=== PATIENT | female | born 1935 | race Caucasian/White ===

== ENCOUNTER 2019-04-08 12:09 | Emergency (ER) | payer OTHER, SELFPAY ==
[2019-04-08 12:19] VITALS: BP 116/58; PULSE 74; RESP 20; TEMP 36.9; O2SAT 98
--- NOTE | 2019-04-08 12:24 | ED.FEMALEGU ---
HPI - Female Genitourinary General Chief complaint: Urogenital-Female Stated complaint: bladder infection Time Seen by Provider: 04/08/19 12:25 Source: patient and family History of Present Illness HPI Narrative: PATIENT PRESENTS WITH URINARY URGENCY AND BURINING. NO BACK OR ABDOMINAL PAIN patient denies any flank pain denies any gross hematuria. Patient states her symptoms started 2 days ago. MD elicited complaint: dysuria and UTI Related Data Home Medications Medication Instructions Recorded Confirmed carvedilol 6.25 mg PO BID 04/08/19 04/08/19 fluticasone propionate [Flonase INTRANASAL 04/08/19 Allergy Relief] insulin aspart U-100 [Novolog 3 unit SUBCUT TID 04/08/19 04/08/19 Flexpen U-100 Insulin] insulin glargine U-300 conc SUBCUT 04/08/19 [Toujeo SoloStar U-300 Insulin] lisinopril 5 mg PO DAILY 04/08/19 04/08/19 rosuvastatin 40 mg PO DAILY 04/08/19 04/08/19 tramadol 50 mg PO HS 04/08/19 04/08/19 Allergies Allergy/AdvReac Type Severity Reaction Status Date / Time codeine Allergy Unknown Unknown Verified 06/03/18 15:29 Penicillins Allergy Unknown Unknown Verified 06/03/18 15:29 Review of Systems Review of Systems: Narrative: CONSTITUTIONAL: Denies fever, chills, or sweats. EYES: Denies visual changes, redness, or discharge. ENT: Denies rhinorrhea, congestion, sore throat, or otalgia. CARDIOVASCULAR: Denies chest pain, palpitations, or edema. RESPIRATORY: Denies cough or dyspnea. GASTROINTESTINAL: Denies abdominal pain, nausea, vomiting, or diarrhea. GENITOURINARY: Denies hematuria. SKIN: Denies rash or itching. MUSCULOSKELETAL: Denies back pain, joint pain, or myalgia. NEUROLOGIC: Denies headache, numbness, or weakness. PSYCHIATRIC: Denies anxiety or depression. [facility] Family History Family History Sibling Family history of arthritis Family history of lung cancer Social History Social History Smoking status: Never smoker Alcohol intake: never Comments At time of signature, agree with nursing past medical, surgical, social and family history. There is no relevant family history pertinent to the presenting complaint Exam Narrative: Exam Narrative: GENERAL: Well-appearing, well-nourished, and in no acute distress. HEAD: Normocephalic, atraumatic. EYES: PERRLA and EOMI. ENT: Nares clear, no rhinorrhea or epistaxis. Mucous membranes moist. NECK: Supple. CHEST: Clear to auscultation. No respiratory distress. HEART: Regular rate and rhythm. No murmur heard. Normal peripheral pulses. ABDOMEN: Soft, nontender, nondistended, normal active bowel sounds. EXTREMITIES: Normal range of motion. No edema. SKIN: Warm, dry, no rash. NEURO: No focal deficits. Alert and oriented x3. [place] Coma Scale Eye Opening: Spontaneous 4 [place] Coma Scale Motor: Obeys Commands 6 Li Coma Scale Verbal: Oriented 5 Li Coma Scale Total 15 Course Vital Signs Vital signs: Vital Signs Temperature 36.9 C 04/08/19 12:19 Pulse Rate 74 04/08/19 12:19 Respiratory Rate 20 04/08/19 12:19 Blood Pressure 116/58 L 04/08/19 12:19 Pulse Oximetry 98 04/08/19 12:19 Temperature 36.9 C 04/08/19 12:19 Pulse Rate 74 04/08/19 12:19 Respiratory Rate 20 04/08/19 12:19 Blood Pressure 116/58 L 04/08/19 12:19 Pulse Oximetry 98 04/08/19 12:19 Critical dx considered and discussed with pt. Educated patient on red flag s/s and to go to ED if s/s occur. Discussed with pt when to return to [facility] or primary care provider. Pt gave verbal undertstanding, all questions were answered, and pt was agreeable to plan MDM - Female Genitourinary Lab Data Labs: Urine Glucose Negative Reference Range: Negative Urine Bilirubin Negative Reference Range: Negative Urine Ketone Negative Reference Range: Negative Urine Spe
== END 2019-04-08 13:10 | disposition home or self-care (01) ==
PROVIDERS: Emergency Provider Nurse Practitioner Family; PCP Family Medicine
DX: N39.0 Urinary tract infection, site not specified (principal); E78.00 Pure hypercholesterolemia, unspecified; I25.2 Old myocardial infarction; E11.9 Type 2 diabetes mellitus without complications; Z79.4 Long term (current) use of insulin
CPT/HCPCS: 81003; 87077; 87086; 87088; 87186; 99213; G0463

== ENCOUNTER 2019-04-23 12:49 | Emergency (ER) | payer OTHER, SELFPAY ==
--- NOTE | ~2019-04-23 | XR_ITS ---
EXAMINATION: XR chest 2V 04/23/2019 13:29 INDICATION: Cough for 3 days. PROCEDURE: 2 view chest COMPARISON: 01/01/2017 FINDINGS: The lungs are clear. The cardiomediastinal silhouette is within normal limits. There are no pleural effusions. There is no pneumothorax suspected. IMPRESSION: 1: NO ACUTE CARDIOPULMONARY DISEASE. Reviewed, dictated and finalized at location A. LY CHAIN DIRECTOR
[2019-04-23 12:57] VITALS: BP 153/68; PULSE 88; RESP 16; TEMP 37.8; O2SAT 97
--- NOTE | 2019-04-23 13:13 | ED.URI ---
HPI - URI/Sore Throat General Chief Complaint: Upper Respiratory Infection Stated Complaint: cough and congestion Time Seen by Provider: 04/23/19 13:07 Source: patient and RN notes reviewed Mode of arrival: ambulatory Limitations: no limitations History of Present Illness HPI Narrative: 84-year-old female with history of diabetes presents with concern for cough, fever, chills, body aches, nasal congestion, postnasal drainage, sore throat that started approximately 3 days ago. She denies any history of smoking, emphysema, COPD, asthma. Reports she was once hospitalized for bronchitis. She is not take any medications for the symptom MD elicited complaint: cough Related Data Home Medications Medication Instructions Recorded Confirmed carvedilol 6.25 mg PO BID 04/08/19 04/08/19 fluticasone propionate [Flonase INTRANASAL 04/08/19 Allergy Relief] insulin aspart U-100 [Novolog 3 unit SUBCUT TID 04/08/19 04/08/19 Flexpen U-100 Insulin] insulin glargine U-300 conc SUBCUT 04/08/19 [Toujeo SoloStar U-300 Insulin] lisinopril 5 mg PO DAILY 04/08/19 04/08/19 rosuvastatin 40 mg PO DAILY 04/08/19 04/08/19 tramadol 50 mg PO HS 04/08/19 04/08/19 Allergies Allergy/AdvReac Type Severity Reaction Status Date / Time codeine Allergy Unknown Unknown Verified 04/23/19 13:32 Penicillins Allergy Unknown Unknown Verified 04/23/19 13:32 Review of Systems Review of Systems: Narrative: CONSTITUTIONAL: Reports malaise, chills, sweats, fever. EYES: Denies visual changes, redness, or discharge. ENT: Reports rhinorrhea, congestion, otalgia and sore throat. CARDIOVASCULAR: Denies chest pain, palpitations, or edema. RESPIRATORY: Reports cough, chest congestion. Denies dyspnea. GASTROINTESTINAL: Denies abdominal pain, nausea, vomiting, diarrhea SKIN: Denies rash or itching. MUSCULOSKELETAL: Reports myalgia. NEUROLOGIC: Denies headache. All systems reviewed & are unremarkable except as noted in HPI and below PMFSH Social History Social History Smoking status: Never smoker Alcohol intake: never Gender identity (if verbalized by the patient): Female Comments At time of signature, agree with nursing past medical, surgical, social and family history. There is no relevant family history pertinent to the presenting complaint Exam Narrative: Exam Narrative: GENERAL: Well-appearing, well-nourished, and in no acute distress. HEAD: Normocephalic EYES: PERRLA, conjunctivae clear ENT: Nares clear, turbinates edematous and erythematous, clear discharge. Mucous membranes moist. TM pearly mitchell with dull light reflex bilaterally; no tragal tenderness. Oropharynx erythematous without lesions. Tonsils not enlarged and without exudate, no drooling, no hoarseness, no trismus. NECK: Supple. No lymphadenopathy CHEST: Left lung clear to auscultation, right lower lobe greatly diminished with poor aeration and rhonchi. No wheezing, rales, or stridor. No respiratory distress, speaks in full sentences. HEART: Regular rate and rhythm. No murmur heard. Normal peripheral pulses. SKIN: Warm, dry, no rash. NEURO: Alert and oriented x3. PSYCH: Normal mood and affect Course Course Emergency Course: Discussed with patient negative influenza results, chest x-ray results. Discussed with patient my suspicion of influenza-like illness in addition to pneumonia due to her very diminished right lower lobe. Discussed treatment of potential influenza as well as pneumonia. Discussed following up with her primary care provider on Thursday or Thursday. Patient understands reasons to go to the emergency room between now and then. Patient is aware of diagnosis, understands and agrees to treatment plan. Anticipatory guidance given. Patient agrees to follow-up as directed and is aware of reasons to seek care at the emergency department. Portions of this record may have been created with voice recognition software Vital Signs Vital sign
== END 2019-04-23 14:20 | disposition home or self-care (01) ==
PROVIDERS: Emergency Provider Nurse Practitioner; PCP Family Medicine
DX: R05 Cough (principal); R50.9 Fever, unspecified; R52 Pain, unspecified; R09.81 Nasal congestion; J02.9 Acute pharyngitis, unspecified; R09.89 Other specified symptoms and signs involving the circulatory and respiratory systems; E11.9 Type 2 diabetes mellitus without complications; E78.00 Pure hypercholesterolemia, unspecified; I25.2 Old myocardial infarction; I25.10 Atherosclerotic heart disease of native coronary artery without angina pectoris; Z95.5 Presence of coronary angioplasty implant and graft; Z79.4 Long term (current) use of insulin
CPT/HCPCS: 71046; 87804; 99213; G0463

== ENCOUNTER 2020-01-05 13:25 | Emergency (ER) | payer OTHER, SELFPAY ==
--- NOTE | ~2020-01-05 | XR_ITS ---
EXAMINATION: XR chest 2V DATE: 01/05/2020 13:53 INDICATION: Cough TECHNIQUE: PA and lateral views of the chest are obtained. COMPARISON: 04/23/2019 FINDINGS: The lungs are free of acute opacities. There is no pleural effusion or pneumothorax. The ca rdiomediastinal silhouette is normal. There is mild thoracolumbar levocurvature. There is moderate th oracic spondylosis. IMPRESSION: 1. No acute cardiopulmonary abnormality. Reviewed, dictated and finalized at location A. C BREAKER
[2020-01-05 13:30] VITALS: BP 134/62; PULSE 72; RESP 16; TEMP 37; O2SAT 98
--- NOTE | 2020-01-05 14:02 | ED.GENADULT ---
HPI - General Adult General Chief complaint: Upper Respiratory Infection Stated complaint: sinus drainage/cough/shortness of breath Time Seen by Provider: 01/05/20 14:02 Source: patient and RN notes reviewed Mode of arrival: ambulatory (with cane) Limitations: no limitations History of Present Illness HPI narrative: 84-year-old female presents with complains of intermittent upper respiratory infection, PND, cough, and wheezing for the past 6 months. Faith says coughing episodes increased throughout the last 24 hours. Allergy medication, Albuterol inhaler and nebulizer, and Mucinex without relief. She has been evaluated multiple times by her PMD (steroids, antibiotics, and albuterol with little to no relief) and is currently awaiting ENT evaluation in 2 weeks. Intermittent dry cough (worse at night) without chest congestion. No rhinorrhea. Nasal congestion. Denies sore throat. No high fevers, drooling, neck or throat swelling. No chest pain or shortness of breath. No exacerbation factors. Remains active. The patient reports she have not been diagnosed with COVID-19. The patient reports she is not waiting for the results of a COVID-19 lab test. The patient reports she do not have chills, weakness, or fatigue. The patient reports she do not have a worsening cough or shortness of breath. The patient reports she do not have any loss of taste, nausea, vomiting, abdominal pain, and diarrhea. Tolerating po intake well. Denies recent traveling. Denies concerns for COVID-19 or exposures been home with limited outdoor exposure except for essential household needs and return home. At this time, patient is not suspected of having COVID-19. Some parts of this dictation were generated by voice recognition software and may contain typographical and/or grammatical inaccuracies. Related Data Home Medications Medication Instructions Recorded Confirmed carvedilol 6.25 mg PO BID 04/08/19 01/05/20 insulin aspart U-100 [Novolog 3 unit SUBCUT TID 04/08/19 01/05/20 Flexpen U-100 Insulin] insulin glargine U-300 conc 20 unit SUBCUT DAILY 04/08/19 01/05/20 [Toujeo SoloStar U-300 Insulin] lisinopril 5 mg PO DAILY 04/08/19 01/05/20 rosuvastatin 40 mg PO DAILY 04/08/19 01/05/20 tramadol 50 mg PO HS 04/08/19 01/05/20 Allergies Allergy/AdvReac Type Severity Reaction Status Date / Time codeine Allergy Unknown Chest Pain Verified 01/05/20 13:40 Penicillins Allergy Unknown Rash Verified 01/05/20 13:40 Review of Systems Review of Systems: Narrative: CONSTITUTIONAL: Denies fever, chills, sweats. EYES: Denies visual changes, redness, discharge. ENT: Denies rhinorrhea, sore throat, otalgia. Complains of congestion, PND. CARDIOVASCULAR: Denies chest pain, palpitations, edema. RESPIRATORY: Denies dyspnea. Complains of intermittent wheezing, dry cough. GASTROINTESTINAL: Denies abdominal pain, nausea, vomiting, diarrhea. GENITOURINARY: Denies dysuria, hematuria, abnormal discharge. SKIN: Denies rash or itching. MUSCULOSKELETAL: Denies acute back pain, joint pain, or myalgia. NEUROLOGIC: Denies numbness or focal weakness. PSYCHIATRIC: Denies anxiety or depression. All systems reviewed & are unremarkable except as noted in HPI and below PMFSH Past Medical History Medical History (Updated 01/06/20 @ 00:00 by [facility]) Breast cancer Diabetes Hypercholesteremia Myocardial infarct 2019 Surgical History Surgical History (Updated 01/05/20 @ 14:19 by GUME Hilton) History of cardiac catheterization History of lumpectomy of right breast Family History Family History (Updated 01/05/20 @ 14:21 by GUME Hilton) Sibling Family history of arthritis Family history of lung cancer Father , Motor vehicle accident No problems noted. Mother , at the age of 96 Hypercholesteremia Social History Social History (Updated 01/05/20 @ 14:21 by GUME Hilton) Smoking stat
== END 2020-01-05 14:19 | disposition home or self-care (01) ==
PROVIDERS: Emergency Provider Nurse Practitioner Family; PCP Family Medicine
DX: J06.9 Acute upper respiratory infection, unspecified (principal); E11.9 Type 2 diabetes mellitus without complications; E78.00 Pure hypercholesterolemia, unspecified; I25.2 Old myocardial infarction; Z85.3 Personal history of malignant neoplasm of breast
CPT/HCPCS: 71046; 99213; G0463

== ENCOUNTER 2020-09-06 11:31 | Emergency (ER) | payer OTHER, SELFPAY ==
--- NOTE | ~2020-09-06 | XR_ITS ---
EXAMINATION: XR ribs BI 3V w CXR 2V EXAM DATE: 09/06/2020 12:37 INDICATION: Cough/Sob X 2 Wks. Fell Forward 09/02/20. Anterior chest pain. TECHNIQUE: Frontal projection of the upper left ribs, frontal projection of the lower left ribs, obli que projection of the left ribs. Frontal projection of the upper right ribs, frontal projection of t he lower right ribs, oblique projection of the right ribs, frontal and lateral chest x-ray(s) for int erpretation. Comparison is made to prior examination from 01/05/2020. FINDINGS: No confluent consolidation, pneumothorax or pleural effusion suspected. Cardiomediastinal s ilhouette and is normal. Mild to moderate thoracic dextroscoliosis, mild to moderate lumbar levoscoli osis. Right axillary surgical clips. Bones are osteopenic. No acute displaced rib fractures identified. Consider educating patient that ev en if there is a radiographically occult nondisplaced rib fracture, there is no specific treatment ot her than to refrain from activity that prevents healing. There is an old left humeral fracture. IMPRESSION: No acute displaced rib fracture identified. Reviewed, dictated and finalized at location B.
[2020-09-06 11:36] VITALS: BP 130/82; PULSE 69; RESP 20; TEMP 36.4; O2SAT 95
--- NOTE | 2020-09-06 11:52 | ED.URI ---
HPI - URI/Sore Throat General Chief Complaint: Upper Respiratory Infection Stated Complaint: cough wheezing and hard to breathe Time Seen by Provider: 09/06/20 11:52 Source: patient and RN notes reviewed Mode of arrival: ambulatory Limitations: no limitations History of Present Illness HPI Narrative: 85-year-old female with history of COPD presents concern for 2-week history of cough, wheezing, shortness of breath. Reports she has been using her albuterol nebulizer several times daily. Reports on September 02 she also lost her balance and fell onto her chest, she reports bruising on bilateral anterior upper chest area bilateral upper arms. Reports she has been taking Mucinex and Claritin. She denies fever, body aches, chills, sweats. Reports she last used her albuterol inhaler approximately 2 hours ago MD elicited complaint: cough Related Data Home Medications Medication Instructions Recorded Confirmed carvedilol 6.25 mg PO BID 04/08/19 09/06/20 insulin aspart U-100 [Novolog 3 unit SUBCUT TID 04/08/19 09/06/20 Flexpen U-100 Insulin] insulin glargine U-300 conc 20 unit SUBCUT DAILY 04/08/19 09/06/20 [Toujeo SoloStar U-300 Insulin] rosuvastatin 40 mg PO DAILY 04/08/19 09/06/20 tramadol 50 mg PO HS 04/08/19 09/06/20 aspirin 81 mg tablet,delayed 81 mg PO DAILY 09/04/20 09/06/20 release duloxetine 30 mg capsule,delayed 30 mg PO DAILY 09/04/20 09/06/20 release lisinopril 2.5 mg tablet 2.5 mg PO DAILY 09/04/20 09/06/20 Allergies Allergy/AdvReac Type Severity Reaction Status Date / Time codeine Allergy Unknown Chest Pain Verified 09/06/20 12:21 Penicillins Allergy Unknown Rash Verified 09/06/20 12:21 Review of Systems Review of Systems: Narrative: CONSTITUTIONAL: Denies malaise, chills, sweats, or fever. EYES: Denies visual changes, redness, or discharge. ENT: Reports rhinorrhea, congestion. Denies sinus pain, otalgia and sore throat. CARDIOVASCULAR: Denies chest pain, palpitations, or edema. RESPIRATORY: Reports cough, wheezing, dyspnea. GASTROINTESTINAL: Denies abdominal pain, nausea, vomiting, diarrhea SKIN: Denies rash or itching. MUSCULOSKELETAL: Denies myalgia. Reports anterior chest pain, bruising, upper arm bruising after fall NEUROLOGIC: Denies headache. All systems reviewed & are unremarkable except as noted in HPI and below PMFSH Past Medical History Medical History Breast cancer Diabetes Hypercholesteremia Myocardial infarct 2019 Surgical History Surgical History (Updated 01/05/20 @ 14:19 by GUME Hilton) History of cardiac catheterization History of lumpectomy of right breast Family History Family History Sibling Family history of arthritis Family history of lung cancer Diabetes mellitus Heart disease Father , Motor vehicle accident Alcoholism Mother , at the age of 96 Hypercholesteremia Social History Social History Smoking status: Never smoker Tobacco type: cigarettes Second hand tobacco smoke exposure: No Alcohol intake: current Substance use: never Additional living arrangements comments: grandson lives in second-floor part of home Gender identity (if verbalized by the patient): Female Comments At time of signature, agree with nursing past medical, surgical, social and family history. There is no relevant family history pertinent to the presenting complaint Exam Narrative: Exam Narrative: GENERAL: Well-appearing, well-nourished, and in no acute distress. HEAD: Normocephalic EYES: PERRLA, conjunctivae clear ENT: Nares clear, turbinates erythematous, clear discharge. Mucous membranes moist. TM pearly mitchell with dull light reflex bilaterally; no tragal tenderness. Oropharynx not erythematous without lesions. Tonsils not enlarged and without exudate, no dr
== END 2020-09-06 12:55 | disposition home or self-care (01) ==
PROVIDERS: Emergency Provider Nurse Practitioner; PCP Family Medicine
DX: J44.1 Chronic obstructive pulmonary disease with (acute) exacerbation (principal); E11.9 Type 2 diabetes mellitus without complications; E78.5 Hyperlipidemia, unspecified; I25.2 Old myocardial infarction; Z85.3 Personal history of malignant neoplasm of breast; Z79.82 Long term (current) use of aspirin; Z79.4 Long term (current) use of insulin
CPT/HCPCS: 71046; 71110; 99213; G0463

== ENCOUNTER 2024-07-25 14:21 | Emergency (ER) | payer MEDICARE, SELFPAY ==
[2024-07-25] VITALS (8 sets, daily range): BP systolic 175–185; BP diastolic 79–99; PULSE 78–80; RESP 15–20; TEMP 36.9; O2SAT 95–99
--- NOTE | ~2024-07-25 | XR_ITS ---
XR chest 1V portable Ordering provider: Shereen Lucero PA-C History: 89 years Female with . BLE, evaluate for pulmonary edema . Comparison: September 06, 2020 FINDINGS: MEDIASTINUM: The cardiac silhouette is not enlarged. LUNGS: No effusions or pneumothorax. Prominent bronchovascular markings bilaterally with interstitial and alveolar opacification focal opacification the left lung base medially is noted. OTHER: No free air under the diaphragm. Healing fracture in the left proximal humerus is noted. Degenerative changes of the spine. IMPRESSION: Highly suggestive bilateral pneumonitis versus pulmonary edema. Clinical correlation and follow-up ad vised. Reviewed, dictated and finalized at location A. IMPRESSION: Highly suggestive bilateral pneumonitis versus pulmonary edema. Clinical correl ation and follow-up advised.
--- OUTSIDE RECORDS SUMMARY | 2024-07-25 14:25 | XMS_ITS | Referral Summary ---
Author Organization [facility] Address [address] [place] [address] Care Team Providers Care Chief Jailer Name Role Phone Naun Georges MD Unavailable [phone] Di Demarco MD Unavailable [phone] Thomas Ordoñez MD Unavailable Joseph Mccullough MD Unavailable [phone] Faith Hamm NP Primary Care Provider [phone] Encounters Date Type Department Care Team Description 07/20/2024 9:00 AM CDT Orders Only [facility] [address] [place] [id number] 07/13/2024 8:00 AM CDT Orders Only [facility] [address] [place] [address] Cellulitis of right lower extremity; Venous stasis ulcer of right calf limited to breakdown of skin without varicose veins (HCC); Type 2 diabetes mellitus with stage 3a chronic kidney disease, with long-term current use of insulin (HCC) 07/12/2024 3:19 PM CDT - 07/12/2024 11:59 PM CDT Hospital Encounter [facility] [address] [facility] [address], [address] [place] [address] Thomas Washington MD Degeneration of intervertebral disc of lumbar region, unspecified whether pain present; Diabetic peripheral neuropathy (HCC) Discharge Disposition: Discharge to home or self care 07/06/2024 10:30 AM CDT Office Visit [facility] at [address] [place] [id number] Faith Hamm NP Cellulitis of right lower extremity (Primary Dx); Dependent edema; Venous stasis ulcer of right calf limited to breakdown of skin without varicose veins (HCC); Type 2 diabetes mellitus with stage 3a chronic kidney disease, with long-term current use of insulin ([facility]) 07/04/2024 Nurse Triage [facility] at [address] [address] Faith Hamm NP 07/04/2024 10:15 AM CDT Office Visit [facility] [place] [address] [place] [address] Ronel Leung NP Leg swelling (Primary Dx); Dependent edema; Cellulitis of right lower extremity 06/20/2024 Telephone [facility] [address] [place] [address] A, [facility]. [address] [place] [address] Shameka Ray NP from Last 3 Months Allergies Active Allergy Reactions Criticality Noted Date Comments Codeine Chest tightness Medium Has tolerated percocet Penicillins Rash Medium Medications calcium carbonate-vitam in D3 (CALCIUM 500 + D, D3,) 500 mg(1,250mg) -125 unit per tablet 0 0 05/22/19 17 Active blood-glucose meter (CONTOUR NEXT METER) misc Contour next meter test blood sugars two times every day DX:E11.65 insulin dependent 1 each 04/29/19 19 Active insulin syringe-needle U-100 0.5 mL 31 gauge x 16 syringeIndicati ons:Type 2 diabetes mellitus with hyperglycemia, with long-term current use of insulin (HCC) One each 3 x daily for insulin administration 120 each 11 07/06/19 19 Active Advocate Lancing Device misc TEST 2 TIMES A DAY 11/01/19 20 Active Comfort EZ Insulin Syringe 1 mL 31 gauge x 5/16 syringe USE TO INJECT 4 TIMES A DAY 11/01/19 20 Active Easy Touch Lancets 28 gauge misc TEST 2 TIMES A DAY 11/01/19 20 Active brimonidine (ALPHAGAN) 0.2 % ophthalmic solution Administer 1 drop into the left eye 2 (two) times a day 04/01/19 22 Active cetirizine (ZyrTEC) 10 mg tabletIndicatio ns:Acute sinusitis, recurrence not specified, unspecified location Take 1 tablet (10 mg total) by mouth daily 90 tablet 12/31/19 23 Active Contour Next Test Strips stripIndication s:Type 2 diabetes mellitus with hyperglycemia, with long-term current use of insulin ([facility]) TEST BLOOD SUGAR FOUR TIMES DAILY 300 strip 4 01/08/20 23 Active lidocaine (LIDODERM) 5 % Place 2 patches on the skin daily Remove & discard patch within 12 hours or as directed by MD. 02/18/20 23 Active polyvinyl alcohol-povidon e (REFRESH CLASSIC) 1.4-0.6 % dropperetteIndi cations:Dry Eye Administer 1 drop into the right eye 3 (three) times a day as needed for dry eyes 02/18/20 23 Active dorzolamide-lien oloL (COSOPT) 22.3-6.8 mg/mL ophthalmic solution Administer 1 drop into the left eye 2 (two) times a day Active pen needle, diabetic (Pen Needle) 31 gauge x 5/16 needleIndicatio ns:Type 2 diabetes mellitus with hyperglycemia, with long-term current use of insulin ([facility]) Use to inject 4 times daily as directed. 400 each 1 05/22/19 24 Active magnesium hydroxide (MILK OF MAGNESIA) suspension 400 mg/5 mL as needed (Constipation) Active pantoprazole DR (PROTONIX) 40 mg EC tabletIndicatio ns:GI Bleed Take 1 tablet (40 mg total) by mouth daily 90 tablet 3 09/17/19 24 Active fluticasone propionate (FLONASE) 50 mcg/actuation nasal sprayIndication s:Non-seasonal allergic rhinitis, unspecified trigger Administer 2 sprays into each nostril daily 3 each 3 10/16/19 24 025 Active insulin aspart (NovoLOG) 100 unit/mL (3 mL) pen for injectionIndica tions:Type 2 diabetes mellitus with hyperglycemia, with long-term current use of insulin (HCC) INJECT 8-14 UNITS UNDER SKIN 3 TIMES A DAY WITH MEALS. 15 mL 2 11/03/19 24 Active insulin glargine (TOUJEO) 300 unit/mL (1.5 mL) pen for injectionIndica tions:type 2 diabetes mellitus Inject 30 Units under the skin daily 15 mL 3 11/10/19 24 Active semaglutide 0.25 mg or 0.5 mg (2 mg/3 mL) pen injector injectionIndica tions:type 2 diabetes mellitus Inject 0.25 mg under the skin once a week 9 mL 3 11/10/19 24 025 Active carvediloL (COREG) 6.25 mg tabletIndicatio ns:Hypertension associated with diabetes (HCC) TAKE 1 TABLET BY MOUTH TWICE A DAY WITH MEALS 180 tablet 1 12/17/19 24 Active lisinopriL (PRINIVIL,ZESTR [place]) 2.5 mg tabletIndicatio ns:Hypertension associated with stage 3a chronic kidney disease due to type 2 diabetes mellitus (HCC),Type 2 diabetes mellitus with stage 3a chronic kidney disease, with long-term current use of insulin ([facility]) Take 1 tablet (2.5 mg total) by mouth daily 90 tablet 3 01/15/20 24 025 Active rosuvastatin (CRESTOR) 40 mg tablet TAKE 1 TABLET BY MOUTH EVERY DAY AT NIGHT 100 tablet 1 03/25/19 25 Active clotrimazole-be tamethasone (LOTRISONE) cream PLEASE SEE ATTACHED FOR DETAILED DIRECTIONS 06/25/19 25 Active furosemide (LASIX) 20 mg tablet Take 1 tablet (20 mg total) by mouth daily as needed (swelling in feet) 30 tablet 1 07/07/19 25 025 Active oxyCODONE (ROXICODONE) 5 mg immediate release tabletIndicatio ns:Pain Take 1 tablet (5 mg total) by mouth nightly as needed for pain 30 tablet 07/13/19 25 025 Active oxyCODONE (ROXICODONE) 5 mg immediate release tabletIndicatio ns:Pain Take 1 tablet (5 mg total) by mouth nightly as needed for pain 30 tablet 08/12/19 25 025 Active oxyCODONE (ROXICODONE) 5 mg immediate release tabletIndicatio ns:Pain Take 1 tablet (5 mg total) by mouth nightly as needed for pain 30 tablet 09/11/19 25 025 Active oxyCODONE (ROXICODONE) 5 mg immediate release tabletIndicatio ns:Pain Take 1 tablet (5 mg total) by mouth nightly as needed for pain for up to 18 days 18 tablet 06/25/19 25 025 Discontinu ed(Reorder ) doxycycline (VIBRAMYCIN) 100 mg capsuleIndicati ons:Cellulitis of right lower extremity Take 1 tablet/capsule (100 mg total) by mouth 2 (two) times a day for 7 days 14 tablet/caps ule 07/05/19 025 Active Problems Problem Noted Date Diagnosed Date Venous stasis ulcer of right calf limited to breakdown of skin without varicose veins 07/06/2024 Assessment & Plan (07/06/2024 7:00 PM CDT): Orders: Ambulatory referral to Wound Clinic; Future Cellulitis of right lower extremity 07/06/2024 Assessment & Plan (07/06/2024 7:00 PM CDT): Orders: Ambulatory referral to Wound Clinic; Future Encounter for Medicare annual wellness exam 01/01 Assessment & Plan (01/20/2024 8:47 PM PRECIPITATION EQUIPMENT TENDER): Annual Medicare wellness exam completed today. All questionnaires completed and reviewed with patient. No Concerns. Unspecified elimination disorder, with urinary s ymptoms 01/20/2024 Immunization due 01/20/2024 Encounter for medical examination to establish c are 10/17/2023 Assessment & Plan (10/17/2023 7:59 PM CDT): Discussed routine health care and maintenance. Get annual flu shot this fall. Labs ordered. Follow-up as scheduled Peptic ulcer disease 09/17/2023 Hiatal hernia 09/17/2023 Anemia due to GI blood loss 09/17/2023 At risk for falling 04/09/2023 Assessment & Plan (04/09/2023 4:00 PM PRECIPITATION EQUIPMENT TENDER): Due to patient's current condition of odontoid fracture, and the fact that she has in a neck brace, she has increased risk for balance issues and falling. Patient would benefit from home physical therapy/occupational therapy. Both of these services were ordered during patient's hospital discharge planning. Dependent edema 04/07/2023 Assessment & Plan (07/06/2024 7:00 PM CDT): Assessment & Plan (04/08/2023 10:01 AM PRECIPITATION EQUIPMENT TENDER): Trial of low-dose furosemide. Encouraged use of compression stocking, elevated legs above heart when possible. Follow advise of PT/OT. H/O gastrointestinal hemorrhage 03/13/2023 Right adrenal mass 02/10/2023 Assessment & Plan (02/12/2023 1:47 PM PRECIPITATION EQUIPMENT TENDER): #Indeterminate hypoattenuating lesion within the left inferior renal pole which is increased in size compared to 2018. This may be evaluated at the same time as the right adrenal lesion - Incidental finding - Interval increase in size of enhancing right adrenal mass compared to study performed in 2018. This lesion is indeterminate. Recommend further evaluation with MR - Follow up with PCP for further management and MRI if indicated Odontoid fracture with type II morphology 2022 Assessment & Plan (04/08/2023 10:00 AM PRECIPITATION EQUIPMENT TENDER): Slowly improving, currently in a neck brace. Keep sidney appts with specialists. Assessment & Plan (02/16/2023 12:26 PM PRECIPITATION EQUIPMENT TENDER): # C2 type II odontoid fracture with epidural hematoma - NSGY Spine consult (Dr. Rodriguez) - CTA head/neck - no evidence of vascular injuries - Pain control - [place] at all times - Q4H NCs - Hold aspirin for 2 weeks (epidural hematoma c-spine), DVT PPX tolerated - Standing C-spine x-rays- Redemonstrated odontoid process and C1 posterior arch fractures. Multilevel degenerative disc disease of the cervical spine worst and moderate at C5-C6 and C6-C7. - Follow up with Neurosurgery Spine in 6 weeks with AP/lateral XR of the cervical spine -- Continue to wear [place] brace at all times Closed fracture of spinous process of thoracic v ertebra 02/09/2023 Assessment & Plan (02/09/2023 11:52 AM PRECIPITATION EQUIPMENT TENDER): T4 spinous process fx - PT/OT - Pain control At risk for inadequate oral intake 02/09/2023 Assessment & Plan (02/10/2023 1:33 PM PRECIPITATION EQUIPMENT TENDER): - Patient reports having poor intake due to throat pain/[place] - Supplements ordered - 02/10 re-educated patient on goal of at least 1 Ensure per mealtime Other closed displaced odontoid fracture, initia l encounter 02/08/2023 Ductal carcinoma of breast, right 04/11/2021 Recurrent malignant neoplasm of right breast 11/2021 Overview (09/18/2022): Assessment: Right breast invasive ductal cancer stage I A ER positive AR positive Lumpectomy plus radiation followed by anastrozole for 5 years. Second right breast cancer, invasive ductal with lobular features-04/09/2021 Grade 1 ER positive AR positive HER2 0 Ki-67 15% Shows simple mastectomy Decline adjuvant hormone therapy MARTI today-12/23/2021 Plan: I recommended that she come back in 6 months for follow-up until she reaches her 3 year anniversary and then she can cut this back to once a year assuming no cancer has returned. She agreed to come back for follow-up did not want to take any hormone therapy.--12/23/2021 Armani Parrish MD Assessment & Plan (09/18/2022 8:05 PM CDT): Under surveillance. No current treatment. Assessment & Plan (10/27/2021 5:56 PM CDT): Under surveillance. Managed by oncology. Insomnia secondary to chronic pain 03/28/2021 Heartburn 02/07/2021 Assessment & Plan (02/07/2021 10:19 AM PRECIPITATION EQUIPMENT TENDER): Trial of famotidine. Abnormal mammogram of right breast 02/05/2021 Other specified glaucoma 01/31/2021 Overview (01/31/2021): Left eye Assessment & Plan (10/17/2023 7:59 PM CDT): Continue present plan of care with referral to Ophthalmology as requested Mild neurocognitive disorder 01/31/2021 Overview (01/31/2021): Patient thinks her memory is fine for 85. Assessment & Plan (09/18/2022 8:05 PM CDT): Most recent SLUMs tests shows a 23/30 score. Stable. Stage 3a chronic kidney disease 08/30/2020 Assessment & Plan (09/18/2022 7:42 PM CDT): Labs ordered, will follow. Continue lisinopril. Assessment & Plan (10/27/2021 5:57 PM CDT): Improving, control bp, keed sidney appt with nephrology. Assessment & Plan (09/09/2021 11:32 AM CDT): recheck renal function Assessment & Plan (11/19/2020 3:50 PM CDT): Advise to keep following with material hauler Assessment & Plan (08/31/2020 5:39 PM CDT): Increase water intake. Has upcoming appt with nephrology soon, keep sidney appt. Cont current meds. 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 Ambulatory with a cane. Claudication 09/28/2019 Mild persistent asthma without complication 03/2019 Assessment & Plan (09/18/2022 7:41 PM CDT): Patient and patient's daughter deny this condition. PFTs have been ordered for status. Assessment & Plan (10/27/2021 5:58 PM CDT): At baseline, cont current Rx meds. Assessment & Plan (02/07/2021 10:17 AM PRECIPITATION EQUIPMENT TENDER): At baseline, cont current Rx meds. Assessment & Plan (08/31/2020 5:38 PM CDT): At baseline, cont current mgmt. Assessment & Plan (01/20/2020 12:54 PM PRECIPITATION EQUIPMENT TENDER): Occasional wheezing. Patient home nebulizer machine broke according to the patient. New prescription sent for another home nebulizer. Uses directed. Assessment & Plan (10/20/2019 1:46 PM CDT): Clinically improved, continue current meds. DDD (degenerative disc disease), lumbar 05/10/19 Assessment & Plan (01/20/2020 12:57 PM PRECIPITATION EQUIPMENT TENDER): Encouraged zerqu-gr-xmuvoo exercises as tolerated. Managed by pain management. Chronic left hip pain 05/10/2019 USP (current) use of opiate analgesic 01/30 History of coronary angioplasty with insertion o f stent 01/16/2019 Assessment & Plan (10/17/2023 7:59 PM CDT): Followed by cardiology Coronary artery disease of n ative artery of [place] heart with stable angina pectoris 06/22/2018 Assessment & Plan (02/17/2023 11:06 AM PRECIPITATION EQUIPMENT TENDER): # CAD # Hypertension - ASA 81 - hold for 2 weeks per NSG (c-spine epidural hematoma) - Carvedilol - 02/11: held lisinopril for low BP - 02/17: Resume Lisinopril 2.5 mg daily Assessment & Plan (09/18/2022 7:41 PM CDT): At baseline, asymptomatic. Continue rosuvastatin, lisinopril. Assessment & Plan (10/27/2021 5:58 PM CDT): Asymptomatic. Stable. Continue current prescription medications. Assessment & Plan (01/20/2020 12:56 PM PRECIPITATION EQUIPMENT TENDER): He is asymptomatic. Continue current medications. Assessment & Plan (10/20/2019 1:48 PM CDT): Managed by cardiology. Assessment & Plan (06/22/2018 3:50 AM CDT): Patient had a STEMI in March 2018. She is status post stent in the right posterior LV segment and is on aspirin and Brilinta which has been resumed. Continue Crestor. Patient also on carvedilol and lisinopril which has been resumed with hold parameters. Continue to monitor. Non-seasonal allergic rhinitis 08/05/2017 Assessment & Plan (10/17/2023 7:58 PM CDT): Continue cetirizine 10 mg daily, fluticasone 2 sprays each nostril daily Assessment & Plan (09/18/2022 7:36 PM CDT): Clinically improved, continue current prescription medications, OTC Claritin, flonase. Assessment & Plan (02/07/2021 10:17 AM PRECIPITATION EQUIPMENT TENDER): Asymptomatic. Stable. Continue current prescription medications. Assessment & Plan (01/20/2020 12:54 PM PRECIPITATION EQUIPMENT TENDER): Stable. Cont. Current meds. Assessment & Plan (11/18/2019 1:40 PM CDT): Stop Zyrtec and switch to Claritin. Take claritin in the am Saline rinse in the am astelin nasal spray 1 spray each nostril, followed by a baby sniff Wait about 10 min, then Flonase 1 spray each nostril, aim away from cartilage, spray once-baby sniff, switch to the other nostril and repeat. Saline rinse about 15 min before bed astelin nasal spray 1 spray each nostril, followed by a baby sniff wait about 10 min then Flonase 1 spray each nostril, aim away from cartilage, spray once-baby sniff, switch to the other nostril and repeat. If working or playing outside, may need to do saline rinses when coming in and change clothes right away Try this regimen for 1-2 weeks consistently. Assessment & Plan (10/20/2019 1:46 PM CDT): Clinically improved, continue current meds. Assessment & Plan (06/22/2018 3:47 AM CDT): Continue Flonase Assessment & Plan (08/05/2017 7:56 AM CDT): Patient demonstrates evidence of allergic rhinitis that has not responded to conventional management. Patient is instructed to perform fluticasone nasal spray 2 sprays in each nostril daily and Atrovent nasal spray 0.06% Q 6 hr p.r.n.. Patient was also advised to perform saline nasal irrigation daily to help promote mucociliary clearance. Possible need for bilateral inferior turbinate reduction should symptoms continue to persist. Laryngopharyngeal reflux (LPR) 08/05/2017 Overview (10/09/2017): Managed by ENT Assessment & Plan (01/20/2020 12:55 PM PRECIPITATION EQUIPMENT TENDER): Asymptomatic. Managed by ENT. Assessment & Plan (01/16/2019 1:05 PM PRECIPITATION EQUIPMENT TENDER): Resolved. Assessment & Plan (08/05/2017 7:58 AM CDT): Patient demonstrates evidence of extra esophageal reflux. This very well may likely be contributing to her reoccurring sinonasal symptoms. Patient currently takes the PPI daily. She is instructed to take this medication every morning 30 min prior to meal and I will add Zantac 300 mg q.h.s.. Patient was also provided with educational material pertaining to reflux precautions and lifestyle changes. Patient was provided with educational material regarding reflux precautions. Patient was instructed to refrain from eating a meal approximately 3 hours prior to bedtime. Patient was instructed to elevate the head of the bed by approximately 8 inches. Patient was to refrain from consuming spicy greasy fatty foods, dairy products, and excessive caffeine use. Patient was also advised to increase water consumption. Patient was also instructed on weight reduction and exercise regimen. Patient was also instructed on the importance of compliance with medications. Mild persistent asthma with exacerbation 018 Assessment & Plan (11/18/2019 1:39 PM CDT): Discussed with patient/parent that asthma appears to be well controlled at this time but to monitor for changes in breathing/wheezing symptoms as allergies/cold symptoms can cause an asthma flare. Contact office if pt begins with concerning asthma symptoms Continue using Albuterol inhaler and nebulizer as needed. Assessment & Plan (08/01/2019 3:39 PM CDT): Encourage patient to begun neb tx with albuterol q6h prn, Rx sent. Keep sidney appt. If no improvement, will need an IN-PERSON visit at or nearest ER. Patient expressed an understanding. Assessment & Plan (01/16/2019 1:04 PM PRECIPITATION EQUIPMENT TENDER): Stable, cont current meds. Assessment & Plan (06/01/2017 1:30 PM CDT): She needs diagnosis of asthma, she needs outpatient pulmonary function test and follow up with community health navigator. Also recommend ENT consultation due to sinus drainage, postnasal drip. Will evaluate for dysphagia, increasing her steroids, starting nebulizer treatments every 6 hr while awake. Adding small dose of Lasix. I still do not have echocardiogram results. Opioid-induced constipation 05/30/2017 Assessment & Plan (05/30/2017 10:57 AM CDT): Patient was given laxatives, enema and she had a bowel movement. I think she needs more laxatives last bowel movement was just water. Will do aggressive bowel therapy. Spoke to the patient about side effects of narcotic pain medications. Fibromyalgia 11/26/2016 Assessment & Plan (01/20/2020 12:57 PM PRECIPITATION EQUIPMENT TENDER): Stable. Managed by pain specialist. Assessment & Plan (10/20/2019 1:49 PM CDT): Managed by Pain specialists. Assessment & Plan (01/16/2019 1:05 PM PRECIPITATION EQUIPMENT TENDER): Pain controlled. Diabetic peripheral neuropathy 11/26/2016 Assessment & Plan (11/10/2023 10:44 AM CDT): Chronic problem. Reviewed foot care; needs to lotion daily. Aware to check feet nightly, not to go barefoot. Assessment & Plan (04/07/2023 11:25 AM PRECIPITATION EQUIPMENT TENDER): May be contributing to her balance issues, in addition to the fact that she recently broke her neck. Patient encouraged to be careful when trying to ambulate and ask for help when needed. Assessment & Plan (09/18/2022 7:31 PM CDT): Stable. Cont. Current prescription medications, gabapentin. Managed by Pain specialists. Assessment & Plan (01/20/2020 12:55 PM PRECIPITATION EQUIPMENT TENDER): Asymptomatic. Managed by Endocrinology. Assessment & Plan (01/16/2019 1:06 PM PRECIPITATION EQUIPMENT TENDER): Clinically improved. Assessment & Plan (06/22/2018 3:50 AM CDT): Patient follows with Dr. Fonseca and receives tramadol p.r.n.. Hold tramadol at this time as patient will be receiving Norcos. OA (osteoarthritis) 11/26/2016 Assessment & Plan (01/16/2019 1:05 PM PRECIPITATION EQUIPMENT TENDER): On tramadol. Polymyalgia rheumatica 11/26/2016 Assessment & Plan (09/18/2022 7:31 PM CDT): Stable. Cont. Current prescription medications, Tramadol, gabapentin, managed by Pain Specialist. Assessment & Plan (01/20/2020 12:57 PM PRECIPITATION EQUIPMENT TENDER): Stable. Managed by pain specialist. Assessment & Plan (10/20/2019 1:48 PM CDT): Managed by pain specialists. Assessment & Plan (01/16/2019 1:06 PM PRECIPITATION EQUIPMENT TENDER): On tramadol. Hyperlipidemia associated with type 2 diabetes macie elsiedilip 05/21/2016 Overview (11/26/2016): Hyperlipidemia Assessment & Plan (11/10/2023 10:17 AM CDT): Chronic problem, at goal on current Rosuvastatin 40mg. Last lipid panel: 10/16/23 LDL=58, PB=079. No changes at this time. Assessment & Plan (10/17/2023 8:00 PM CDT): Continue to limit fats in diet and take atorvastatin 80 mg daily Assessment & Plan (02/09/2023 11:41 AM PRECIPITATION EQUIPMENT TENDER): - Rosuvastatin Assessment & Plan (12/15/2022 11:35 AM CDT): On statin therapy Tolerating well Assessment & Plan (09/18/2022 7:23 PM CDT): LDL at goal of less than 100, continue current prescription medications, rosuvastatin. Assessment & Plan (05/05/2022 11:55 AM PRECIPITATION EQUIPMENT TENDER): Chronic problem, at goal on current Rosuvastatin 40mg. Last lipid panel: 09/09/21 LDL=63, QH=648. No changes at this time. Assessment & Plan (10/27/2021 5:57 PM CDT): LDL at goal of less than 100, continue current prescription medications. Assessment & Plan (09/09/2021 11:32 AM CDT): On statin therapy Tolerating well Assessment & Plan (03/25/2021 1:30 PM PRECIPITATION EQUIPMENT TENDER): On statin therapy Tolerating well Assessment & Plan (02/07/2021 10:17 AM PRECIPITATION EQUIPMENT TENDER): LDL at goal of < 70. Cont current Rx meds. Assessment & Plan (11/19/2020 3:49 PM CDT): On statin therapy Tolerating well Assessment & Plan (01/20/2020 12:53 PM PRECIPITATION EQUIPMENT TENDER): Elevated. Low-cholesterol diet recommended. Continue current medications. Managed by Endocrinology. Assessment & Plan (10/20/2019 1:46 PM CDT): Low chol diet recommended. Cont current mgmt. Assessment & Plan (09/12/2019 10:29 PM CDT): On statin therapy Tolerating well Assessment & Plan (09/04/2018 5:13 PM CDT): On statin therapy Tolerating well Assessment & Plan (06/22/2018 3:47 AM CDT): Continue statin Assessment & Plan (04/27/2018 7:20 AM PRECIPITATION EQUIPMENT TENDER): Lipid abnormalities are worsening. Nutritional counseling was provided. and Pharmacotherapy as ordered. Lipids will be reassessed in 6 months. Assessment & Plan (02/07/2018 11:18 PM PRECIPITATION EQUIPMENT TENDER): Pt on statin therapy Tolerating well Assessment & Plan (10/10/2017 10:42 PM CDT): Lipid abnormalities are unchanged. Nutritional counseling was provided. and Pharmacotherapy as ordered. Lipids will be reassessed in 6 months. Assessment & Plan (03/21/2017 1:22 AM PRECIPITATION EQUIPMENT TENDER): Currently on aspirin and statin will continue with home medications Type 2 diabetes mellitus wit h stage 3a chronic kidney disease, with long-term current use of insulin 05/21/2016 Overview (10/09/2017): Managed by Endocrinology Assessment & Plan (07/06/2024 7:00 PM CDT): Monitor blood glucose more frequently and scheduled follow-up with Endocrinology. Orders: Ambulatory referral to Wound Clinic; Future Assessment & Plan (02/09/2024 8:32 PM PRECIPITATION EQUIPMENT TENDER): eGFR 47 on 09/17/2023. Currently on lisinopril 2.5 mg daily for renal protection. Assessment & Plan (11/10/2023 10:39 AM CDT): Chronic problem, uncontrolled. A1c worsened from 8.3% 12/15/22 to now 9.3%. sample of ozempic given. Patient assistance forms given for her to see if she qualifies. Also sent in Ozempic to her pharmacy to see if cost is still prohibitive. Current medications: Ozempic 0.25mg weekly Toujeo 30 units at bedtime Novolog three times daily with meals. ( skip taking insulin if not eating ) Less than 90 - 0 units 91-140 - 8 units 141 - 200 - 10 units 201 - 250 - 11 units 251 - 300 - 12 units 301- 350 - 13 units Over 351 - 14 units Will update MA/Cr today. Does not mychart. Verified phone #/address to contact re: results. UTD on DM eye exam (04/02/23) Discussed with Faith Lester: Strive for regular exercise (30min most days) and diet (get at least 4-5 servings of fruit and veggies daily, avoid processed foods, increase lean protein intake and decrease carb portions as well as fruit juices, regular soda & desserts). Watch carbs and simple sugars. Check the blood sugar: Check the feet daily for skin breakdown and infection CKD 3 Currently taking lisinopril 2.5mg daily Nephropathy: On MARILYN-I / ARB s : Yes. Lisinopril 2.5mg. Last MA: 09/18/22 (1131). Last creat/GFR: 09/17/23 GFR=47, CR=1.13. Assessment & Plan (10/17/2023 7:57 PM CDT): Continue to limit carbohydrates in diet and take current medications. This is followed by endocrinology. Check feet daily and report any abnormalities. Get annual dilated eye exam Assessment & Plan (02/17/2023 3:04 PM PRECIPITATION EQUIPMENT TENDER): - Home regimen: Novolog slide, insulin glargine (Toujeo) 30-32 units daily, semaglutide 0.25 mg weekly - Glargine increased to 26 units nightly - HD SSI, increased mealtime lispro to 6 units with meals - Accu-checks ACHS - Resume home lispro and semaglutide at discharge, facility can increase insulin glargine back to home dose based on blood glucose checks Assessment & Plan (12/15/2022 11:36 AM CDT): Chronic, uncontrolled, improving slowly, no hypoglycemia reported A1c today 8.3 % Continue current insulin medication regimen Ozempic 0.25 mg SQ weekly ( advised never to go up on the dose gave samples ) Advised to bring blood sugar log with each visit Patient did not like Dexcom CGM Advised to follow with Podiatry Up-to-date with eye exam Follow-up in 6 months Assessment & Plan (09/18/2022 7:27 PM CDT): A1c not at goal of < 8.0. Encouraged f/u with Endocrinology. Patient is unsure of which medications she is on. She believes she is definitely on Toujeo and Novolog. I asked her daughter to come to [facility]. She was not aware of which medications her mother was on either. Assessment & Plan (05/05/2022 11:56 AM PRECIPITATION EQUIPMENT TENDER): Chronic problem, near goal. A1c slowly trending downward. Consistently taking 8-10 units of Novolog with meals. Samples of Ozempic & Toujeo given to Mrs Lester. Discussed increasing activity as tolerated. Discussed the need to strive for regular exercise (30min most days) and diet (get at least 4-5 servings of fruit and veggies daily, avoid processed foods, increase lean protein intake and decrease carb portions as well as fruit juices, regular soda & desserts). Watch carbs and simple sugars. Check the feet daily for skin breakdown and infection. Current medications: Ozempic 0.25mg weekly Toujeo 30 units at bedtime Novolog 5-10 units three times daily with meals. Three times with meals ( skip taking insulin if not eating ) Less than 90 - 0 units 91-140 - 8 units 141 - 200 - 10 units 201 - 250 - 11 units 251 - 300 - 12 units 301- 350 - 13 units Over 351 - 14 units Assessment & Plan (10/27/2021 5:57 PM CDT): A1c near goal, low carbs/sugar diet recommended. Managed by endocrinology. Cont current Rx meds. Assessment & Plan (09/09/2021 11:32 AM CDT): Chronic, uncontrolled, improving slowly A1c today 8.5 % Continue current indulin medication regimen advised to restart Ozempic , but stay at a lower dose 0.25 mg SQ weekly Advised to bring blood sugar log with each visit Will do order process for DEXCOM G 6 CGM Advised to follow with Podiatry Follow-up in 6 months Assessment & Plan (03/25/2021 1:46 PM PRECIPITATION EQUIPMENT TENDER): Chronic, uncontrolled, improving slowly A1c today 8.7% Continue current medication regimen Gave Ozempic 0.5 mg pen samples Advised to bring blood sugar log with each visit Advised to follow with Podiatry Follow-up in 3 months Assessment & Plan (11/19/2020 3:50 PM CDT): Diabetes is uncontrolled, Improving slowly HbA1c - 9.1 % - continue Toujeo ( long acting insulin ) 32 units SQ daily at bedtime - restart Ozempic 0.5 mg SQ weekly ( gave 4 month samples ) - keep taking Novolog 5-10 units with meals - check blood sugars 4 x daily - before each meal and bedtime - follow up in 4 months Reminded to bring in blood sugar diary at next visit. Dietary recommendations for ADA diet. Regular aerobic exercise. Discussed ways to avoid symptomatic hypoglycemia. Discussed sick day management. Discussed foot care. Reminded to get yearly retinal exam. Medication changes per orders. Diabetes will be reassessed in 4 months . Assessment & Plan (08/31/2020 5:39 PM CDT): A1c uncontrolled, followed by endocrinology. Encouraged low carbs/no sugar diet. Cont current meds. Assessment & Plan (01/20/2020 12:53 PM PRECIPITATION EQUIPMENT TENDER): Uncontrolled. Managed by endocrinology. Patient encouraged to modify her diet to low carbohydrate diet. Continue current medications. Assessment & Plan (09/12/2019 10:29 PM CDT): Diabetes is uncontrolled, Worsening HbA1c - 10.3 % % - continue Toujeo ( long acting insulin ) 30 units SQ daily at bedtime - restart Ozempic 0.5 mg SQ weekly ( pt insurance not covering, gave sample and working in pt. assistance program ) - keep taking Novolog 5-6 units with meals - check blood sugars 4 x daily - before each meal and bedtime - follow up in 3 months Reminded to bring in blood sugar diary at next visit. Dietary recommendations for ADA diet. Regular aerobic exercise. Discussed ways to avoid symptomatic hypoglycemia. Discussed sick day management. Discussed foot care. Reminded to get yearly retinal exam. Medication changes per orders. Diabetes will be reassessed in 3 months. Assessment & Plan (01/16/2019 1:03 PM PRECIPITATION EQUIPMENT TENDER): Managed by endocrinology. Assessment & Plan (09/04/2018 5:13 PM CDT): Diabetes is Improving HbA1c - 8.7 % - continue Toujeo ( long acting insulin ) 30 units SQ daily at bedtime - continue Taking Ozempic 0.5 mg SQ weekly - start Novolog Three times with meals ( skip taking insulin if not eating ) Less than 90 - 0 units 91-140 - 8 units 141 - 200 - 10 units 201 - 250 - 11 units 251 - 300 - 12 units 301- 350 - 13 units Over 351 - 14 units - check blood sugars 4 x daily - before each meal and bedtime - follow up in 3 months Reminded to bring in blood sugar diary at next visit. Dietary recommendations for ADA diet. Regular aerobic exercise. Discussed ways to avoid symptomatic hypoglycemia. Discussed sick day management. Discussed foot care. Reminded to get yearly retinal exam. Medication changes per orders. Diabetes will be reassessed in 1 month. Assessment & Plan (07/06/2018 12:25 PM CDT): Diabetes is worsening. HbA1c - 12.7 % - continue Toujeo ( long acting insulin ) 30 units SQ daily at bedtime - continue Taking Ozempic 0.5 mg SQ weekly - start Novolog Three times with meals ( skip taking insulin if not eating ) Less than 90 - 0 units 91-140 - 8 units 141 - 200 - 10 units 201 - 250 - 11 units 251 - 300 - 12 units 301- 350 - 13 units Over 351 - 14 units - check blood sugars 4 x daily - before each meal and bedtime - follow up in 4 weeks Reminded to bring in blood sugar diary at next visit. Dietary recommendations for ADA diet. Regular aerobic exercise. Discussed ways to avoid symptomatic hypoglycemia. Discussed sick day management. Discussed foot care. Reminded to get yearly retinal exam. Medication changes per orders. Diabetes will be reassessed in 1 month. Assessment & Plan (06/22/2018 3:45 AM CDT): Patient's sugars her uncontrolled likely due to infection. She is on Toujeo 30U qHS and ozempic. She follows with Dr. Camacho, endocrinology. Will order Lantus at 20% reduction nightly, [address] patient on a high-dose sliding scale. Will continue monitor and adjust as needed. Assessment & Plan (06/21/2018 12:54 PM CDT): Diabetes is worsening. BS in office 513 Pt has skin abscess on her scalp - advise pt and her daughter to go to ER now , pt needs I and D and IV antibiotics and IV fluids and insulin Pt vitals stable - advised pt to c/w current insulin regimen and restart Ozempic 0.5 mg SQ weekly ( gave sample ) And advised to follow up in 2 weeks with BS log - pt daughter agreed to drive pt to ER now , they plan to go to [facility] Reminded to bring in blood sugar diary at next visit. Dietary recommendations for ADA diet. Regular aerobic exercise. Discussed ways to avoid symptomatic hypoglycemia. Discussed sick day management. Discussed foot care. Reminded to get yearly retinal exam. Diabetes will be reassessed in 2 weeks . Assessment & Plan (04/27/2018 7:20 AM PRECIPITATION EQUIPMENT TENDER): Diabetes is improving with treatment. - HbA1c today - 9.4 % , reviewed BS log - Continue taking Toujeo 30 units SQ daily at bedtime - start ozempic 0.25 mg SQ Weekly for 4 weeks and than increase to 0.5 mg SQ weekly - advise to keep checking blood sugars And keep log - call if having low BS less than 70 - Follow up in 6 weeks Reminded to bring in blood sugar diary at next visit. Dietary recommendations for ADA diet. Regular aerobic exercise. Discussed ways to avoid symptomatic hypoglycemia. Discussed sick day management. Discussed foot care. Reminded to get yearly retinal exam. Medication changes per orders. Diabetes will be reassessed in 6 weeks. Assessment & Plan (02/07/2018 11:19 PM PRECIPITATION EQUIPMENT TENDER): Diabetes is worsening. Recent HbA1c 12/2017 - 10.2 % - nutrition counseling provided - Stop Toujeo insulin And Novolog insulin - start checking blood sugars twice daily - before meals ( before breakfast and before dinner ) - start Soliqua 30 units SQ daily before breakfast - start Glimepiride pill - 2 mg oral twice daily with meals ( breakfast and dinner ) - follow up in 4 weeks with Blood sugar log - advise good oral hydration - lab before next visit Reminded to bring in blood sugar diary at next visit. Dietary recommendations for ADA diet. Regular aerobic exercise. Discussed ways to avoid symptomatic hypoglycemia. Discussed sick day management. Discussed foot care. Reminded to get yearly retinal exam. Medication changes per orders. Diabetes will be reassessed in 1 month. Assessment & Plan (01/07/2018 5:29 PM PRECIPITATION EQUIPMENT TENDER): Diabetes is unchanged. Discussed foot care. Reminded to get yearly retinal exam. Keep sidney appt with new Earth Science Teacher. Changed Levemir to Toujeo in an attempt to lower Rx costs for patient. Instructed her to take the forms for Levemir with her to her new Earth Science Teacher it Toujeo was not more affordable. Assessment & Plan (10/10/2017 10:43 PM CDT): Diabetes is unchanged. Continue current treatment regimen. Reminded to bring in blood sugar diary at next visit. Dietary recommendations for ADA diet. Diabetes will be reassessed in 6 months. Assessment & Plan (03/21/2017 1:22 AM PRECIPITATION EQUIPMENT TENDER): Poorly controlled type 2 diabetes insulin dependent Both hold metformin Continue with Levemir 50 U with breakfast and 15 U with meals will start on low sliding-scale insulin as above Last hemoglobin A1c in 2 weeks ago was 10 Diabetic diet Hypertension associated with stage 3a chronic kidney disease due to type 2 diabetes mellitus 05/21/2016 Overview (11/26/2016): Hypertension Assessment & Plan (11/10/2023 10:41 AM CDT): Chronic problem, well controlled on current carvedilol 6.25mg bid & lisinopril 2.5mg daily. No changes at this time. Assessment & Plan (10/17/2023 8:01 PM CDT): BP at goal 124/64. Continue to limit salt in diet and take lisinopril 2.5 mg daily, carvedilol 6.25 mg b.i.d. Assessment & Plan (12/15/2022 11:37 AM CDT): Hypertension is improving with treatment. Continue current treatment regimen. Dietary sodium restriction. Regular aerobic exercise. Blood pressure will be reassessed at the next regular appointment. Assessment & Plan (09/18/2022 7:30 PM CDT): BP is on lower side, patient admits to occasional dizziness, but states that she's been dizzy for years. Patient confirms taking lisinopril, refill given. Patient unsure is she is still taking carvedilol. Will wait for daughter to bring updated medication list into the office, based off what patient is currently taking at home. Assessment & Plan (05/05/2022 11:42 AM PRECIPITATION EQUIPMENT TENDER): Chronic problem, well controlled on current carvedilol 6.25mg bid & lisinopril 2.5mg daily. No changes at this time. Assessment & Plan (10/27/2021 5:56 PM CDT): Blood pressure at goal less than 140/90, continue current prescription medications. Assessment & Plan (09/09/2021 11:31 AM CDT): Hypertension is improving with treatment. Continue current treatment regimen. Dietary sodium restriction. Regular aerobic exercise. Blood pressure will be reassessed at the next regular appointment. Assessment & Plan (03/25/2021 1:30 PM PRECIPITATION EQUIPMENT TENDER): Hypertension is improving with treatment. Continue current treatment regimen. Dietary sodium restriction. Regular aerobic exercise. Blood pressure will be reassessed at the next regular appointment. Assessment & Plan (02/07/2021 10:15 AM PRECIPITATION EQUIPMENT TENDER): Clinically improved, continue current prescription medications. Assessment & Plan (11/19/2020 3:49 PM CDT): Hypertension is improving with treatment. Continue current treatment regimen. Dietary sodium restriction. Regular aerobic exercise. Blood pressure will be reassessed at the next regular appointment. Assessment & Plan (08/31/2020 5:37 PM CDT): BP remains within goal, keep sidney appt with material hauler. Cont current mgmt. Assessment & Plan (10/20/2019 1:46 PM CDT): Stable. Cont. Current meds. Assessment & Plan (09/12/2019 10:29 PM CDT): Hypertension is improving with treatment. Continue current treatment regimen. Dietary sodium restriction. Regular aerobic exercise. Blood pressure will be reassessed at the next regular appointment. Assessment & Plan (09/04/2018 5:14 PM CDT): Hypertension is improving with treatment. Continue current treatment regimen. Dietary sodium restriction. Regular aerobic exercise. Blood pressure will be reassessed at the next regular appointment. Assessment & Plan (06/22/2018 3:47 AM CDT): Controlled. Home medications have been resumed with hold parameters. Continue monitor. Assessment & Plan (04/27/2018 7:20 AM PRECIPITATION EQUIPMENT TENDER): Hypertension is improving with treatment. Continue current treatment regimen. Dietary sodium restriction. Regular aerobic exercise. Blood pressure will be reassessed at the next regular appointment. Assessment & Plan (02/07/2018 11:18 PM PRECIPITATION EQUIPMENT TENDER): Hypertension is chronic, well controlled for pt age . Continue current treatment regimen. Dietary sodium restriction. Regular aerobic exercise. Continue current medications. Blood pressure will be reassessed at the next regular appointment. Assessment & Plan (10/10/2017 10:41 PM CDT): Hypertension is improving with treatment. Continue current treatment regimen. Dietary sodium restriction. Regular aerobic exercise. Continue current medications. Blood pressure will be reassessed at the next regular appointment. Assessment & Plan (03/21/2017 1:23 AM PRECIPITATION EQUIPMENT TENDER): Hypertension fairly controlled Will continue with home lisinopril Chronic diastolic congestive heart failure Assessment & Plan (09/18/2022 7:36 PM CDT): Patient and patient's daughter deny this condition. Reviewed most recent ECHO, results state normal left ventricular diastolic function. . Asked patient to re-establish care with cardiology. Patient is lost to follow up since her embedded linux developer left town. Patient currently asymptomatic. Assessment & Plan (10/20/2019 1:48 PM CDT): At baseline, managed by cardiology. Nocturnal hypoxemia Esophageal dysmotilities Resolved Problems Problem Noted Date Diagnosed Date Resolved Date Discharge planning issues 02/09/2023 Assessment & Plan (02/17/2023 2:44 PM PRECIPITATION EQUIPMENT TENDER): - 02/09 pending PT/OT, c spine xrays, okay to TTF - 02/10 cspine xrays completed today, OT rec IRF, PT rec home w/ 24 hr supervision, referrals sent per nelson CARRILLO to TTF, barone removed void check pending, continue to encourage Ensure intake - 02/11- Patient is medically stable for discharge, SW/CM updated. Discharge pending facility acceptance - 02/17 discharge Class 1 obesity due to exces s calories with serious comorbidity and body mass index (BMI) of 31.0 to 31.9 in adult 05/05/2022 11/10/2023 Assessment & Plan (05/05/2022 11:08 AM PRECIPITATION EQUIPMENT TENDER): Discussed healthy diet and importance of regular physical activity (20- 30min/day, 150min/wk). 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 Assessment & Plan (03/25/2021 1:53 PM PRECIPITATION EQUIPMENT TENDER): Advised to follow up with [facility] Pt has appt on apr 02 2021 Gave instructions for local wound care Acute hypoxemic respiratory failure 04/27/2019 10/20/2019 Acute lower respiratory tract infection 04/27/2019 07/01/2019 BMI 27.0-27.9,adult 01/14/2019 04/21/19 23 Assessment & Plan (11/18/2019 1:40 PM CDT): Healthy, low carbohydrate lifestyle and exercise Dizziness 01/14/2019 10/20/2019 Assessment & Plan (01/16/2019 1:03 PM PRECIPITATION EQUIPMENT TENDER): May be secondary to anti-hypertensives. Decrease lisinopril 5 mg every day to 2.5 mg every day. Discuss further with cardiology. MSSA (methicillin susceptibl e Staphylococcus aureus) infection 07/01/2018 01/14/2019 Assessment & Plan (07/01/2018 1:16 PM CDT): Take all antibiotics as directed. Vaginal itching 07/01/2018 01/14/2019 Assessment & Plan (07/01/2018 1:18 PM CDT): Most likely secondary to all of the antibiotics she recently had. Rx for diflucan given. Notify us if no improvement. Abscess 06/22/2018 01/14/2019 Scalp abscess 06/21/2018 01/14/2019 Assessment & Plan (07/01/2018 1:16 PM CDT): Managed by wound care clinic. Keep sidney f/u appt. Assessment & Plan (06/22/2018 3:46 AM CDT): Status post I&D in the ED. Patient states she still has pain at her scalp that the fentanyl is not really helping. She is not interested in trying morphine. Patient has an allergy to codeine apparently cause chest pressure in the past. Review of EMR, patient has tolerated tramadol and has had prescriptions for Carlos as in the past. Order patient Carlos as p.r.n.. Patient recently had a STEMI in March and is currently on aspirin and Brilinta will have to avoid NSAIDs for now. Assessment & Plan (06/21/2018 12:56 PM CDT): Acute, Worsening, Pt needs I and D and IV antibiotics Pt going to ER now ( [facility] ) Acute pain of right knee 05/04/2018 Assessment & Plan (05/04/2018 3:09 PM PRECIPITATION EQUIPMENT TENDER): Will obtain x-ray. Taking tylenol for pain. Asking for something stronger. Referral to Dr. Bunch, [facility] per pt request. 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 Patient states that this is the only thing that provides relief from her congestion. Patient was educated on this medication and its side effect causing rebound inflammation. Patient is advised to discontinue this medication immediately. Pharyngeal dysphagia 06/01/2017 019 Assessment & Plan (06/01/2017 1:22 PM CDT): Consult GI for dysphagia. Patient states that she was eating chicken today and it was getting stuck up in the neck area. Accelerated hypertension 05/30/201711/2017 Assessment & Plan (06/01/2017 1:40 PM CDT): Will adjust medications. Patient presented with blood pressure of 190s systolic. Patient has signs of congestion, shortness of breath, and suspected diastolic dysfunction of the heart, most likely related to uncontrolled hypertension and a diabetic heart disease suspected. Increasing lisinopril to 40 mg daily dose, giving additional 20 mg now. Also starting calcium channel rosio, because tachycardia and suspected asthma I do not want to start beta-rosio. Shortness of breath 05/30/2017 10/10/19 18 Assessment & Plan (05/31/2017 2:13 PM CDT): Unclear etiology for now. Patient states that having shortness of breath but more than 3 months associated with wheezing and productive cough. She had antibiotic treatments prescribed by primary care physician without relief of her shortness of breath. Patient has an ABG done in March which shows significant hypoxemia with PO2 of 67. Chest x-ray did not show active pulmonary disease. Patient continues to have wheezing. Strongly recommend her to have outpatient pulmonary function test. This was discussed with her and she verbalized understanding. I suspect this is secondary to asthma and or COPD exacerbation. Fall at home 05/30/2017 10/09/2017 Assessment & Plan (05/30/2017 11:16 AM CDT): On May 21 patient fell at her dye way because she lost her balance. She fell on her buttocks and was feeling pretty much pain since then. She takes tramadol at home for her left hip pain that she has surgery for on a because of broken bone. CT scan of abdomen shows L1 superior endplate scalloping deformity, but patient's pain is mainly in her coccyx area. Despite the pain patient is able to ambulate without any problem. X-rays of the lumbar spine on the day of a fall did not show any fractures. CT of the neck was done showing no fractures or dislocations on the day of the fall. Will suggest outpatient PT OT for balance training. Acute bronchitis 03/21/2017 10/09/2017 Assessment & Plan (03/21/2017 1:26 AM PRECIPITATION EQUIPMENT TENDER): The patient was started on the Rocephin and azithromycin for atypical coverage Dual nebs every 6 hr Although throat every 6 hr as needed RT consult Still Medrol 60 IV b.i.d. Mucinex 600 p.o. b.i.d. Iliotibial band syndrome of left side 11/27/2016 01/20/2020 Ulcer of foot 11/26/2016 01/14/2019 Overview (11/26/2016): Overview: Right History of right breast cancer 07/31/2015 09/18/2022 Malignant neoplasm of breast 05/22/2011 01/20/2020 Overview (07/25/2016): Breast cancer Assessment & Plan (05/30/2017 11:09 AM CDT): History of right breast cancer, status post radiation therapy 6 years ago. Patient states no recurrence of the disease. Acute respiratory failure with hypoxia 10/09/2017 Influenza 07/01/2019 Immunizations Immunization Administration Dates Next Due COVID-19 mRNA (PFIZER) 0.3 m L (10 mcg) vaccine (5-11 years) 01/20/2024 COVID-19 mRNA (PFIZER) 0.3 m L (30 mcg) vaccine (12 years and up) 12/09/2022 Influenza, Quadrivalent, Hig h Dose, Preservative Free, Intrr 12/09/2022,12/30/2021,12/03/2020 Influenza, Quadrivalent, Rec ombinant, Egg Free, Preservative Free, Intramuscular 12/21/2019 Influenza, Quadrivalent, Spl it, Preservative Free, Intramuscular 01/21/2017,04/02/2016,12/14/2014 Influenza, Trivalent, High D ose, Split, Preservative Free, Intramuscular 01/14/2019,01/07/2018,01/23/2016 Influenza, Trivalent, IM (MDV) ,12/31/2014,01/30/2014,11/14 Influenza, Unspecified 01/20/2024,2023(Deferred: Patient Refused),12/08/2022(Deferred: Patient Refused),12/08/2022(Deferred: Patient Refused),12/08/2022(Deferred: Patient Refused),12/10/2020,12/21/2019 PPD TEST 03/21/2023,02/19/2023 Pfizer SARS-CoV-2 Monovalent Vaccination (12+ Yrs) PURPLE 05/08/2020,04/29/2020 Pneumococcal Conjugate PCV 13 04/14/2017 Pneumococcal Conjugate Pcv20 01/20/2024 Pneumococcal Polysaccharide PPV23 03/02/2006 RSV Vaccine, Pref, Recombina nt, Subunit, Adjuvanted, PF, IM (Arexvy) 01/08/2023 Td, adsorbed 03/02/2005 Tdap 04/14/2017 Tetanus Toxoid, Unspecified 04/14/2017, 6 ZOSTER LIVE 03/02/2010 ZOSTER Recombinant 12/03/2020,07/24/2020 Zoster, unspecified 12/03/2020,07/24/2020,2010 Social History Tobacco Use Types Packs/Day Years Used Date Smoking Tobacco: Never Smokeless Tobacco: Never Tobacco Cessation:Counseling Given: Not Answered Alcohol Use Standard Drinks/Week Comments No 0 (1 standard drink = 0.6 oz pur e alcohol) OASIS D0700: Social Isolation Answer Da te Recorded Frequency of experiencing loneliness or isolatio n Rarely 03/11/2023 OASIS A1250: Transportation Answer Date Recorded Lack of Transportation (Medical) No 03/11/2023 Lack of Transportation (Non-Medical) No 03/11/2023 Patient Unable or Declines to Respond No 03/11/2023 OASIS B1300: Health Literacy Answer Almas e Recorded Frequency of needing help to read materials from doctor or pharmacy Never 03/11/2023 [facility] Utilities Answer Date Recorded In the past 12 months has e [employer], gas, oil, or water [employer] threatened to shut off services in your home? No 04/13/2023 Social Connection and Isolat ion Panel [NHANES] Answer Date Recorded In a typical week, how many times do you talk on the phone with family, friends, or neighbors? More than three times a week 04/13/2023 How often do you get togethe r with friends or relatives? Three times a week 04/13/2023 How often do you attend chur ch or voodoo services? More than 4 times per year 04/13/2023 Do you belong to any clubs o r organizations such as bahai groups, unions, fraternal or athletic groups, or school groups? Yes 04/13/2023 How often do you attend meet ings of the clubs or organizations you belong to? 1 to 4 times per year 04/13/2023 Are you , , di vorced, , never , or living with a partner? 04/13/2023 AUDIT-C Answer Date Recorded Q1: How often do you have a drink containing alc ohol? Never 09/17/2023 Average Number of Drinks Not on file 024 Frequency of Binge Drinking Not on file 08/30 Overall Financial Resource Strain (CARDIA) Answe r Date Recorded How hard is it for you to pa y for the very basics like food, housing, medical care, and heating? Somewhat hard 04/13/2023 PHQ-2 Answer Date Recorded PHQ-2 Total Score (If total score is 3 or more points, staff should administer the PHQ-9) 1 07/12/2024 Hunger Vital Sign Answer Date Recorded Within the past 12 months, y ou worried that your food would run out before you got the money to buy more. Never true 04/13/19 24 Within the past 12 months, t he food you bought just didn't last and you didn't have money to get more. Never true 04/13/2023 PRAPARE - Transportation Answer Date Re corded In the past 12 months, has l ack of transportation kept you from medical appointments or from getting medications? No 04/02 In the past 12 months, has l ack of transportation kept you from meetings, work, or from getting things needed for daily living? No 04/13/2023 Housing Stability Vital Sign Answer Almas e Recorded In the last 12 months, was t here a time when you were not able to pay the mortgage or rent on time? No 04/13/2023 In the last 12 months, how many places have you lived? 1 04/13/2023 In the last 12 months, was t here a time when you did not have a steady place to sleep or slept in a alf (including now)? No 04/13/2023 PHQ-9 Answer Date Recorded PHQ-9 Total Score 2 07/12/2024 Personal Safety Answer Date Recorded Have you ever been in or are you currently in a harmful physical or emotional relationship or is someone making you feel afraid or unsafe? Denies 03/22/2024 Education Answer Date Recorded What is the highest level of school you have completed or the highest degree you have received? High school graduate 03/16/2023 Comments No Sex and Gender Information Value Date Recorded Sex Assigned at Not on file Legal Sex Female 5:37 PM PRECIPITATION EQUIPMENT TENDER Gender Identity Not on file Sexual Orientation Not on file Last Filed Vital Signs Vital Sign Reading Time Taken Comments Blood Pressure 143/73 07/12/2024 3:48 PM CDT Pulse 58 07/12/2024 3:48 PM CDT Temperature 36.7 C (98.1 F) 07/06/2024 10:39 AM CDT Respiratory Rate 18 07/12/2024 3:48 PM CDT Oxygen Saturation 97% 07/12/2024 3:48 PM CDT Inhaled Oxygen Concentration - - Weight 65.1 kg (143 lb 9.6 oz) 07/06/2024 10:39 AM CDT Height 154.9 cm (5' 0.98) 07/06/2024 10:39 AM C DT Body Mass Index 27.15 07/06/2024 10:39 AM CDT Plan of Treatment Not on file Goals Goal Patient Goal Type Associated Problems Recent Progress Patient-Stated? Author BH-Pain Behavioral Health Improving(03/2022 12:53 PM PRECIPITATION EQUIPMENT TENDER) No Betty Elizabeth, RN Note: Patient will establish a comfort-function goal and identify the pain level that will allow the patient to perform desired activities and achieve an acceptable quality of life. Medical Devices Implanted Type Area Med Aide Device Identifier Shelf Expiration Date Model / Serial / Lot Bard Peripheral Vascular [id number] Ultraclip Bard 17ga 10cm 2 Trigger Permanent Ultrasound - [id number] - [id number] Implanted:Qty: 1 on 04/09/2021 by Thomas Davila MD at [facility] Breast Right: Breast [employer] 09/27/2023 [id number] / [id number] / [employer] [id number] Xience Bree 3mm 18mm Rapid Exchange System Coronary Stent - [id number] Implanted:Qty: 1 on 03/12/2018 by Jacob Mary MD at [facility] [employer] 12/06/2018 [id number] / [id number] Procedures Procedure Name Priority Date/Time Associated Diagnosis Comments EGFR STAT 03/22/2024 7:24 AM PRECIPITATION EQUIPMENT TENDER POCT HEMOGLOBIN A1C Routine 11/10/2023 9:57 AM CDT Type 2 diabetes mellitus with stage 3a chronic kidney disease, with long-term current use of insulin (HCC) LIPID PANEL Routine 10/16/2023 2:36 PM CDT Screening for lipid disorders DIABETES EYE EXAM Routine 04/02/2023 9:12 AM PRECIPITATION EQUIPMENT TENDER ALBUMIN CREATININE RATIO, URINE Routine 09/18/2022 12:53 PM CDT Type 2 diabetes mellitus with stage 3a chronic kidney disease, with long-term current use of insulin (HCC) DEXA AXIAL SKELETON BONE DENSITY 1 OR MORE SITES Schedule Routine, Read Routine (OP Routine) 08/23/2020 12:03 PM CDT Post-menopausal Screening for osteoporosis DIABETES FOOT EXAM Routine 07/22/2017 from Last 3 Months or Most Recently Relevant to Health Maintenance Results * (ABNORMAL) eGFR (03/22/2024 7:24 AM PRECIPITATION EQUIPMENT TENDER) eGFR 34(L) >=60 mL/min/1. 73 m2 Comment: Interpretive Data Reference Interval Normal >/= 90 mL/min/1.73m2 Mildly decreased* 60 - 89 mL/min/1.73m2 Mildly to moderately decreased 45 - 59 mL/min/1.73m2 Moderately to severely decreased 30 - 44 mL/min/1.73m2 Severely decreased 15 - 29 mL/min/1.73m2 Kidney Failure < 15 mL/min/1.73m2 *Relative to young adult level Estimated glomerular filtration rate is determined by the 2020 CKD-EPI equation recommended by the National Kidney Foundation (A Unifying Approach to GFR Estimation: Recommendations of the NKF-ASK Task Force on Reassessing the Inclusion of Race in Diagnosing Kidney Disease, JASN 2020). The CKD-EPI equation should not be used for patients with unstable renal function and has not been validated in children and those over 70. Current interpretive data was last reviewed 2020. Blood 03/22/2024 7:24 AM PRECIPITATION EQUIPMENT TENDER 03/22/2024 7:30 AM PRECIPITATION EQUIPMENT TENDER us Sara Hastings MD LAB BLOOD ORDERABLES Kaylah l Result [facility] Department of Laboratories [place], [place] [id number] * (ABNORMAL) POCT hemoglobin A1c (11/10/2023 9:57 AM CDT) Hemoglobin A1C, POC 9.3 4.0 - 5.6 % Blood 11/10/2023 9:57 AM CDT Jaylyn Espinal NP POINT OF CARE TEST ORDERA BLES Final Result * (ABNORMAL) Lipid panel (10/16/2023 2:36 PM CDT) Cholesterol 140 30 - 199 mg/dL Comment: Interpretive Data Ages < or = 19 years Acceptable: <170 mg/dL Borderline high: 170-199 mg/dL High: >or= 200 mg/dL Ages > or = 20 years Desirable: <200 mg/dL Borderline high: 200-239 mg/dL High: >or= 240 mg/dL Literature References: 1. Expert Panel on Integrated Guidelines for Cardiovascular Health and Risk Reduction in Children and Adolescents. Pediatrics 2011;128:S213 2. NCEP Expert Panel. Circulation 2004;110:227 Current Interpretive Data was last revised on 2017. Triglycerides 202(H) <=149 mg/dL [facility] Comment: Interpretive Data Ages < or = 9 years Acceptable: <75 mg/dL Borderline high: 75-99 mg/dL High: >or= 100 mg/dL Ages 10 to 20 years Acceptable: <90 mg/dL Borderline high: 90-129 mg/dL High: >or= 130 mg/dL Ages > or = 20 years Desirable: <150 mg/dL Borderline high: 150-199 mg/dL High: 200-499 mg/dL Very high: >or= 499 mg/dL Literature References: 1. Expert Panel on Integrated Guidelines for Cardiovascular Health and Risk Reduction in Children and Adolescents. Pediatrics 2011;128:S213 2. NCEP Expert Panel. Circulation 2004;110:227 Current Interpretive Data was last revised on 2017. HDL 42 >=40 mg/dL RUSTY Comment: Interpretive Data Ages < or = 19 years Acceptable: >45 mg/dL Borderline low: 40-45 mg/dL Low: <40 mg/dL Ages > or = 20 years Desirable: >or= 60 mg/dL Low: <40 mg/dL Literature References: 1. Expert Panel on Integrated Guidelines for Cardiovascular Health and Risk Reduction in Children and Adolescents. Pediatrics 2011;128:S213 2. NCEP Expert Panel. Circulation 2004;110:227 Current Interpretive Data was last revised on 2017. LDL, calculated 58 <=129 mg/dL RUSTY Comment: Interpretive Data Ages < or = 19 years Acceptable: <110 mg/dL Borderline high: 110-129 mg/dL High: >or= 130 mg/dL Ages > or = 20 years Optimal: <100 mg/dL Near optimal: 100-129 mg/dL Borderline high: 130-159 mg/dL High: >160 mg/dL Literature References: 1. Expert Panel on Integrated Guidelines for Cardiovascular Health and Risk Reduction in Children and Adolescents. Pediatrics 2011;128:S213 2. NCEP Expert Panel. Circulation 2004;110:227 Current Interpretive Data was last revised on 2017. Non-HDL Cholesterol 98 mg/dL RUSTY Comment: Interpretive Data Ages < or = 19 years Acceptable: <120 mg/dL Borderline high: 120-144 mg/dL High: >145 mg/dL Ages > or = 20 years When triglycerides are >200 mg/dL, Non-HDL cholesterol is a secondary target of therapy with treatment goals that are 30 mg/dL greater than the LDL cholesterol target. Literature References: 1. Expert Panel on Integrated Guidelines for Cardiovascular Health and Risk Reduction in Children and Adolescents. Pediatrics 2011;128:S213 2. NCEP Expert Panel. Circulation 2004;110:227 Current Interpretive Data was last revised on 2017. Chol/HDL ratio 3 [facility] Blood 10/16/2023 2:36 PM CDT 10/16/2023 8:28 PM CDT us Faith Hamm ROTARY PUMP OPERATOR LAB BLOOD ORDERABLES Final Re sult [facility] [address] [facility] Department [place] [address] * (ABNORMAL) DIABETES EYE EXAM (04/02/2023 9:12 AM PRECIPITATION EQUIPMENT TENDER) Historical Provider MD HEALTH MAINTENANCE Final Result * (ABNORMAL) Albumin Creatinine Ratio, Urine (09/18/2022 12:53 PM CDT) Albumin Ur 1,043.2 mg/L [facility] ([facility]) Comment: Interpretive Data No reference range established. Current interpretive data was last revised 2018. Testing performed by: [address] [address] Creatinine Ur 92.2 mg/dL [facility] ([place]) Comment: Interpretive Data No reference range established. Current interpretive data was last revised 2018. Testing performed by: [address] [address] Albumin Creatinine Ratio, Ur 1,131(H) 1 - 29 mg/g [facility] ([place]) Comment:Testing performed by : [address] [address] Urine 09/18/2022 12:5 3 PM CDT 09/18/2022 7:11 PM CDT Natalia Vang DO LAB URINE ORDERABLES Final Result [facility] Department [place] [address] * Dexa Axial Skeleton Bone Density 1 or 2 Site (08/23/2020 12:03 PM CDT) Anatomical Region Laterality Modality Body N/A Other 08/23/2020 12:3 1 PM CDT Narrative 08/23/2020 12:33 PM CDT EXAM DESCRIPTION: DEXA AXIAL SKELETON BONE DENSITY 1 OR MORE SITES REASON FOR STUDY: Post-menopausal female, screening for osteoporosis. Med Aide/Model: Covestor (S/N [id number]) CLINICAL INFORMATION: Current height: 64 inches Maximum height: 66 inches Weight: 149 pounds Risk factors: History of a fracture as an adult, parental history of a hip fracture COMPARISON: 12/15/2017 FINDINGS: AP LUMBAR SPINE L1-L4: Total BMD is 1.001 g/cm2 T-score is -0.4 Most recent prior BMD was 0.896 g/cm2 There has been a 11.7% increase in BMD which is statistically significant. RIGHT HIP: Current Total BMD is 0.775 g/cm2 T-score is -1.4 Most recent prior Total BMD was 0.795 g/cm2 There has been a 2.6% decrease in BMD which is not statistically significant. Current femoral neck BMD is 0.638 g/cm2 T-score is -1.9 IMPRESSION: 1. Low bone mass by WHO criteria. 2. The WHO fracture risk assessment tool (FRAX) indicates that the 10 year risk for a major osteoporotic fracture is 37% and the 10 year risk for a hip fracture is 23%. The FRAX tool has not been validated in patients currently or previously treated with pharmacotherapy for osteoporosis. In such patients, clinical judgement must be exercised in interpreting FRAX scores as the fracture risk may be overestimated. REFERENCE: Bone mineral density: Normal (T-score above or = -1.0) Low bone mass (T-score between -1.0 and -2.5) replaces the previously used term osteopenia Osteoporosis (T-score = or below -2.5) Medical evaluation for secondary causes of low bone mineral density may be appropriate. FRAX is a World Health Organization validated fracture risk assessment tool that calculates a person's 10 year probability of a major osteoporosis related fracture and hip fracture. According to the National Osteoporosis Foundation guidelines, postmenopausal women and men age 50 or older with low bone mass and a 10 year probability of a major osteoporosis related fracture = or greater than 20% or a 10 year probability of a hip fracture = or greater than 3% should be considered for treatment. For further information, including treatment recommendations, please refer to the 2013 ISCD Official Positions (http://www.iscd.org) and the NOF's Clinician's Guide to Prevention and Treatment of Osteoporosis (http://www.nof.org/professionals/clinical-guidelines) THIS IS AN ELECTRONICALLY VERIFIED FINAL REPORT 08/23/2020 12:33 PM - Electronically signed by Thomas Davila M.D. AB: Report ID: [id number] Reading Location: [place] [address] Procedure Note Thomas Davila MD - 08/23/2020 EXAM DESCRIPTION: DEXA AXIAL SKELETON BONE DENSITY 1 OR MORE SITES REASON FOR STUDY: Post-menopausal female, screening for osteoporosis. Med Aide/Model: SyncSum Discovery SL (S/N [id number]) CLINICAL INFORMATION: Current height: 64 inches Maximum height: 66 inches Weight: 149 pounds Risk factors: History of a fracture as an adult, parental history of a hip fracture COMPARISON: 12/15/2017 FINDINGS: AP LUMBAR SPINE L1-L4: Total BMD is 1.001 g/cm2 T-score is -0.4 Most recent prior BMD was 0.896 g/cm2 There has been a 11.7% increase in BMD which is statisticallysignificant. RIGHT HIP: Current Total BMD is 0.775 g/cm2 T-score is -1.4 Most recent prior Total BMD was 0.795 g/cm2 There has been a 2.6% decrease in BMD which is not statisticallysignificant. Current femoral neck BMD is 0.638 g/cm2 T-score is -1.9 IMPRESSION: 1. Low bone mass by WHO criteria. 2. The WHO fracture risk assessment tool (FRAX) indicates that the 10 year risk for a major osteoporotic fracture is 37% and the 10 year risk for ahip fracture is 23%. The FRAX tool has not been validated in patients currently or previously treated with pharmacotherapy for osteoporosis. In such patients, clinical judgement must be exercised in interpreting FRAX scores as the fracturerisk may be overestimated. REFERENCE: Bone mineral density: Normal (T-score above or = -1.0) Low bone mass (T-score between -1.0 and -2.5) replaces thepreviously used term osteopenia Osteoporosis (T-score = or below -2.5) Medical evaluation for secondary causes of low bone mineral density may be appropriate. FRAX is a World Health Organization validated fracture risk assessmenttool that calculates a person's 10 year probability of a major osteoporosisrelated fracture and hip fracture. According to the National OsteoporosisFoundation guidelines, postmenopausal women and men age 50 or older with low bonemass and a 10 year probability of a major osteoporosis related fracture = or greater than 20% or a 10 year probability of a hip fracture = or greaterthan 3% should be considered for treatment. For further information, including treatment recommendations, please referto the 2013 ISCD Official Positions (http://www.iscd.org) and the NOF's Clinician's Guide to Prevention and Treatment of Osteoporosis (http://www.nof.org/professionals/clinical-guidelines) THIS IS AN ELECTRONICALLY VERIFIED FINAL REPORT 08/23/2020 12:33 PM - Electronically signed by Thomas Davila M.D. AB: Report ID: [id number] Reading Location: [id number] Natalia Vang DO IMG DXA PROCEDURES Final R esult * DIABETES FOOT EXAM (07/22/2017) [facility] Diabetic Foot Exam Unknown Historical Provider HEALTH MAINTENANCE Final Result from Last 3 Months or Most Recently Relevant to Health Maintenance Insurance [facility] MEDICARE ADVANTAGE IDPA [facility] MEDICARE ADVANTAGE Advance Directives For more information, please contact: [phone] * Full Code (Latest Code Status on File) Date Activated Date Inactivated Comments 03/16/2023 11:07 AM 03/19/2023 5:51 PM * Full Code Date Activated Date Inactivated Comments 03/13/2023 10:34 PM 03/16/2023 11:07 AM * Full Code Date Activated Date Inactivated Comments 02/08/2023 2:12 PM 02/17/2023 11:23 PM * Full Code Date Activated Date Inactivated Comments 05/07/2021 5:31 PM 05/08/2021 5:50 PM * Full Code Date Activated Date Inactivated Comments 04/27/2019 12:11 AM 04/30/2019 7:11 PM Care Teams Chief Jailer Relationship Specialty Start Date End Date Faith Hamm NP [address] [facility] [address] [place] [address] PCP - General Family Medicine 10/16/23 [place] [address] [address] [address] Consulting Physician Endocrinology 03/29/18 [place] [address] [address] [address] Consulting Physician Nephrology 02/27/21 Thomas Ordoñez MD [address] [facility] MEDICAL ONCOLOGY, [address] [address] Consulting Physician Medical Oncology 05/22/21 Joseph Mccullough MD [address] [place] [address] DR [address]ALVAN [address] [place] [id number] Consulting Physician Gastroenterology 03/19/23
--- OUTSIDE RECORDS SUMMARY | 2024-07-25 14:25 | XMS_ITS | Encounter Summary ---
Author Organization [facility] Address [address] [place], [place] [address] [place] [address] Phone Care Team Providers Care Development Expert Name Role Phone Natalia Vang DO Primary Care Provider [phone] Encounter Details Date Type Department Care Team (Late st Contact Info) Description 09/12/2020 Orders Only [facility] [address] [place] [address] [address] [place] [address] Di Demarco MD [address] [facility]. [address] [place], [place] [address] Social History Tobacco Use Types Packs/Day Years Used Date Smoking Tobacco: Never Assessed Comments Unknown Sex and Gender Information Value Date Recorded Sex Assigned at Not on file Legal Sex Female 1:57 PM EDT Gender Identity Not on file Sexual Orientation Not on file documented as of this encounter Plan of Treatment Not on file documented as of this encounter Visit Diagnoses Not on filedocumented in this encounter Care Teams Development Expert Relationship Specialty Start Date End Date Natalia Vang DO [address] [place] [address] PCP - General Internal Medicine 08/29/20 documented as of this encounter
--- OUTSIDE RECORDS SUMMARY | 2024-07-25 14:25 | XMS_ITS | Clinical Summary ---
Author Organization [facility] Address [address] [place] [address] Phone Care Team Providers Care Illustrator Set Name Role Phone Hank Seymour MD Unavailable [phone] Sandip Murphy MD Unavailable [phone] Sony Patel MD Unavailable + Mariah Rose MD Unavailable [phone] Con Pete MD, Merrill Unavailable [phone] Natalia Vang DO Primary Care Provider [phone] Urban To APRN, HOSPITAL HOUSEKEEPER Unavailable Allergies Active Allergy Reactions Criticality Noted Date Comments Codeine Unknown Penicillins Unknown Medications anastrozole (ARIMIDEX) 1 MG Tablet Take 1 mg by mouth daily. Active NOVOLOG FLEXPEN 100 UNIT/ML Solution Pen-injector 15 Units by Subcutaneous route. 3 03/27/19 16 Active B-D UF III MINI PEN NEEDLES 31G X 5 MM [facility] 4 04/09/19 16 Active fluticasone (FLONASE) 50 MCG/ACT SuspensionIndic ations:Allergic rhinitis, unspecified allergic rhinitis type 2 Sprays by Nasal route daily. Use in each nostril as directed. 1 Bottle 0 05/14/19 16 Active meclizine (ANTIVERT) 12.5 MG TabletIndicatio ns:Dizziness and giddiness Take 1 Tab by mouth every 8 hours as needed for Dizziness. 30 Tab 0 05/14/19 16 Active Aspirin 81 MG Tablet Take 81 mg by mouth daily. Active Multiple Vitamins-Minera ls (MULTIVITAMIN PO) Take by mouth daily. Active vitamin E (TOCOPHEROL) 1000 UNIT Capsule Take 1,000 Units by mouth daily. Active CALCIUM-VITAMIN D POIndications:c alcium 1200mg + vit D3 1000iu Take by mouth daily. Indications: calcium 1200mg + vit D3 1000iu Active gabapentin (NEURONTIN) 300 MG CapsuleIndicati ons:Type 2 diabetes mellitus with diabetic polyneuropathy, without long-term current use of insulin (HCC) Take 1 Cap by mouth nightly. Start with one nightly for 1 week, then may increase to the BID dosing as above. 30 Cap 1 08/16/19 16 Active metFORMIN (GLUCOPHAGE) 1000 MG Tablet Take 1 Tab by mouth 2 times daily. 180 Tab 1 08/23/19 16 Active Additional Information Patient not taking.Reported on 03/28/2024 ONE TOUCH ULTRA TEST Strip Tests TID 300 Each 5 09/11/19 16 Active LEVEMIR FLEXTOUCH 100 UNIT/ML Solution Pen-injector INJECT 40 UNITS SUBCUTANEOULSY NIGHTLY 15 mL 0 12/14/19 16 Active lisinopril (PRINIVIL, ZESTRIL) 5 MG Tablet TAKE 1 TABLET BY MOUTH DAILY 30 Tab 6 01/06/20 16 Active fenofibrate 160 MG Tablet Take 1 Tab by mouth daily. 30 Tab 5 01/23/20 16 Active Insulin Syringe-Needle U-100 (INSULIN SYRINGE 1CC/30GX5/16) 30G X 07/15 1 ML Misc USE WITH INSULIN DAILY 100 Each 1 03/24/19 17 Active simvastatin (ZOCOR) 40 MG Tablet TAKE 2 TABLETS BY MOUTH EVERY EVENING 60 Tab 0 03/27/19 17 Active Additional Information Patient not taking.Reported on 03/28/2024 traMADol (ULTRAM) 50 MG Tablet TAKE 1 TABLET BY MOUTH TWICE DAILY NEEDED FOR PAIN 60 Tab 0 04/17/19 17 Active Additional Information Patient not taking.Reported on 03/28/2024 ONE TOUCH ULTRASOFT LANCETS MiscIndications :Type 2 diabetes mellitus with diabetic polyneuropathy, with long-term current use of insulin (HCC) TEST THREE TIMES DAILY 300 Each 0 04/17/19 17 Active oxyCODONE (ROXICODONE) 5 MG TabletIndicatio ns:Other chronic pain Take 1 Tablet by mouth every 4 hours as needed for Moderate or more severe pain. 120 Tablet 03/25/19 24 Active brimonidine (ALPHAGAN) 0.2 % Solution instill 1 drop into left eye twice a day Active cetirizine (ZyrTEC) 10 MG Tablet Take 10 mg by mouth daily. 12/31/19 23 Active carvedilol (COREG) 6.25 MG Tablet Take 6.25 mg by mouth 2 times daily (with meals). Active dorzolamide-lien olol (COSOPT) 2-0.5 % Solution 1 Drop. Active Ozempic, 0.25 or 0.5 MG/DOSE, 2 MG/1.5ML Solution Pen-injector 0.5 mg by Subcutaneous route. 09/26/19 20 Active rosuvastatin (CRESTOR) 40 MG Tablet Take 1 Tablet by mouth nightly. 09/11/19 21 Active Polyvinyl Alcohol-Povidon e PF 1.4-0.6 % Solution 1 Drop. 02/18/20 23 Active pantoprazole (PROTONIX) 40 MG Tablet Delayed Response Take 40 mg by mouth daily. Active Active Problems Problem Noted Date Diagnosed Date History of right breast cancer 07/31/2015 DM2 (diabetes mellitus, type 2) HLD (hyperlipidemia) Neuropathy Foot ulcer Overview (01/03/2015): Right HTN (hypertension) OA (osteoarthritis) Fibromyalgia Polymyalgia rheumatica Encounters Date Type Department Care Team Description 05/11/2024 Telephone [facility] [address] [place] [address] Urban To, RETAIL ASSOCIATE, HOSPITAL HOUSEKEEPER Vaginal Prolapse from Last 3 Months Immunizations Immunization Administration Dates Next Due Covid-19, Mrna, Lnp-s, Pf, 30 Mcg/0.3 Ml Dose (P fizer) 05/28/2020,04/29/2020 Influenza Vaccine greater than 3 yrs 12/31/2014, 01/30/2014 PUR FLU HIGH DOSE (FLUZONE) 01/23/2016 Pneumococcal Vaccine Adult - 23 Valent 7 TD VACCINE 03/02/2005 Family History Medical History Relation Name Comments Breast Cancer Maternal Aunt Osteoporosis Mother Breast Cancer Other Breast Cancer Paternal Aunt Relation Name Status Comments Maternal Aunt Mother Other Paternal Aunt Social History Tobacco Use Types Packs/Day Years Used Date Smoking Tobacco: Never Smokeless Tobacco: Never Tobacco Cessation:Counseling Given: Not Answered Alcohol Use Standard Drinks/Week Comments Yes 0 (1 standard drink = 0.6 oz pur e alcohol) Comments No Sex and Gender Information Value Date Recorded Sex Assigned at Not on file Legal Sex Female 11:36 PM CDT Gender Identity Not on file Sexual Orientation Not on file Last Filed Vital Signs Vital Sign Reading Time Taken Comments Blood Pressure 105/66 03/28/2024 2:10 PM ELECTRIC RANGE PREPARER Pulse 55 03/28/2024 2:10 PM ELECTRIC RANGE PREPARER Temperature 36.4 C (97.5 F) 11/27/2015 11:04 AM CDT Respiratory Rate 14 03/28/2024 2:10 PM ELECTRIC RANGE PREPARER Oxygen Saturation 97% 03/28/2024 2:10 PM ELECTRIC RANGE PREPARER Inhaled Oxygen Concentration - - Weight 67.1 kg (148 lb) 03/28/2024 2:10 PM ELECTRIC RANGE PREPARER Height 165.1 cm (5' 5) 03/28/2024 2:10 PM ELECTRIC RANGE PREPARER Body Mass Index 24.63 03/28/2024 2:10 PM ELECTRIC RANGE PREPARER Plan of Treatment Health Maintenance Due Date Last Done Comments Hepatitis C Virus (HCV) Screening 1935 Diabetes: Nephropathy Screening 1953 Diabetes: Eye Exam 02/06/2017 02/07/2016, 1 , 06/14/2015, Additional history exists Diabetes: Foot Exam 03/11/2019 03/11/2018, 12/10/2017, 04/30/2017, Additional history exists Mammogram 04/09/2022 04/09/2021, 12/0 03/2020, 12/07/2019, Additional history exists DEXA Bone Density 08/23/2022 08/23/2020, , 04/09/2015 Diabetes: Hemoglobin A1c 05/09/2024 024, 12/15/2022, 05/05/2022, Additional history exists SARS-COV-2 Immunization (9 - Pfizer risk ) 07/19/2024 01/20/2024, 12/09/2022, 12/30/2021, Additional history exists DTaP/Tdap/Td Immunization Discontinued 04/14/2017, 03/2005 TdaP Immunization Completed 04/14/2017 Zoster Immunization Completed 12/03/2020, 12/03/2020, 07/24/2020, Additional history exists Respiratory Syncytial Virus (RSV) Immunization (Adult) Completed 01/08/2023 Influenza Immunization Completed , 12/09/2022, 12/09/2022, Additional history exists Pneumococcal Immunization (50+ years) Completed 01/20/2024, 04/14/2017, 03/02/2006 Pneumococcal Immunization Combined Discontinued 01/20/2024, 04/14/2017, 03/02/2006 Hepatitis B Immunization Aged Out No longer eligible based on patient's age to complete this topic Meningococcal Immunization (ACWY) Aged Out No longer eligible based on patient's age to complete this topic Rotavirus Immunization Aged Out No lo nger eligible based on patient's age to complete this topic Procedures Procedure Name Priority Date/Time Associated Diagnosis Comments EXTERNAL PODIATRY REFERRAL Today 03/11/2018 Infected nailbed of toe, unspecified laterality [facility] SCREENING BILATERAL DIGITAL W CAD Routine 08/26/2016 Visit for screening mammogram DILATED EYE EXAM Routine 02/07/2016 [facility] BONE DENSITOMETRY AXIAL SKELETON Routine 04/09/2015 2:23 PM ELECTRIC RANGE PREPARER Closed fracture of femur with routine healing, unspecified fracture morphology, unspecified laterality, unspecified portion of femur, subsequent encounter Abnormal Bone Density Screening from Last 3 Months or Most Recently Relevant to Health Maintenance Results * EXTERNAL PODIATRY REFERRAL (03/11/2018) us Lavinia Padgett MD OUTPT REFERRALS EXT/INT Kaylah l Result * [facility] SCREENING BILATERAL DIGITAL W CAD (08/26/2016) Anatomical Region Laterality Modality breast Bilateral Mammography us Bashir Uribe MD IMG MAMMO ORDERABLES Kaylah l Result * DILATED EYE EXAM (02/07/2016) us Simba Posadas MD PROCEDURE/MINOR SURGICAL ORDE SHELL Final Result * [facility] BONE DENSITOMETRY AXIAL SKELETON (04/09/2015 2:23 PM ELECTRIC RANGE PREPARER) Anatomical Region Laterality Modality BODY N/A Other 04/09/2015 4:13 PM ELECTRIC RANGE PREPARER Impressions 04/09/2015 4:16 PM ELECTRIC RANGE PREPARER IMPRESSION: 1. Low bone mass by WHO criteria. 2. The WHO fracture risk assessment tool (FRAX) indicates that the 10-year probability of a major osteoporotic fracture is 23.6% and the 10-year probability of a hip fracture is 6.6%. 3. Since 2010, there has been an 11.1% decrease in bone mineral density in the left hip and a 2.8% decrease in bone mineral density in the lumbar spine. Bone mineral density: Normal (T-score above or [...] to Prevention and Treatment of Osteoporosis (http://www.nof.org/professionals/clinical-guidelines) Narrative 04/09/2015 4:16 PM ELECTRIC RANGE PREPARER EXAMINATION: Bone density examination (hip and spine). HISTORY: 80 year old postmenopausal female with given history of femur fracture. Current Height: 64 inches Maximum Height: 66 inches Weight: 153 pounds RISK FACTORS: Left hip fracture as an adult. COMPARISON(S): August 28, 2010. PARLIAMENTARY ARCHIVIST/MODEL: Roomish (S/N [id number] FINDINGS: AP lumbar spine L1-L4 Total BMD is 1.029 g/od6A-mnlnq is -1.3 Most recent prior BMD was 1.059 g/cm2 There has been a 2.8% decrease in BMD which is statistically significant. Left Hip Current Total BMD is 0.837 g/sh9Z-duewb is -1.4 Most recent prior Total BMD was 0.941 g/cm2 There has been a 11.1% decrease in BMD which is statistically significant. Current femoral neck BMD is 0.749 g/bo2U-lcpvt is -2.1 Thomas Davila M.D. THIS IS AN ELECTRONICALLY VERIFIED REPORT 04/09/2015 4:13 PM: Thomas Davila M.D. Radiologist AB: TERI Procedure Note Thomas Davila MD - 04/09/2015 EXAMINATION: Bone density examination (hip and spine). HISTORY: 80 year old postmenopausal female with given history of femur fracture. Current Height: 64 inches Maximum Height: 66 inches Weight: 153 pounds RISK FACTORS: Left hip fracture as an adult. COMPARISON(S): August 28, 2010. PARLIAMENTARY ARCHIVIST/MODEL: Roomish (S/N [id number] FINDINGS: AP lumbar spine L1-L4 Total BMD is 1.029 g/jb7D-lnoda is -1.3 Most recent prior BMD was 1.059 g/cm2 There has been a 2.8% decrease in BMD which is statistically significant. Left Hip Current Total BMD is 0.837 g/bs0Q-qjwnc is -1.4 Most recent prior Total BMD was 0.941 g/cm2 There has been a 11.1% decrease in BMD which is statistically significant. Current femoral neck BMD is 0.749 g/at1Z-ilwtc is -2.1 Thomas Davila M.D. THIS IS AN ELECTRONICALLY VERIFIED REPORT 04/09/2015 4:13 PM: Thomas Davila M.D. Radiologist AB: TERI IMPRESSION: 1. Low bone mass by WHO criteria. 2. The WHO fracture risk assessment tool (FRAX) indicates that the 10-year probability of a major osteoporotic fracture is 23.6% and the 10-year probability of a hip fracture is 6.6%. 3. Since 2011, there has been an 11.1% decrease in bone mineral density in the left hip and a 2.8% decrease in bone mineral density in the lumbar spine. Bone mineral density: Normal (T-score above or [...] to Prevention and Treatment of Osteoporosis (http://www.nof.org/professionals/clinical-guidelines) Lavinia Padgett MD IMG DEXA ORDERABLES Final Re sult from Last 3 Months or Most Recently Relevant to Health Maintenance Insurance [facility]IC[facility] Care Teams Illustrator Set Relationship Specialty Start Date End Date Natalia Vang DO 2 [facility] [address] [address] PCP - General Family Medicine 07/20/20 Hank Seymour MD Consulting Physician Radiation Oncology 07/31/15 Sandip Murphy MD Consulting Physician General Surgery 07/31/15 Sony Patel MD 4 [facility] [address] [address] Consulting Physician Endocrinology 07/31/15 Mariah Rose MD 1 [facility] [place] [address] Consulting Physician Wound Care 07/31/15 Merrill Andujar Jr., MD [facility] [place], [place] [address] Consulting Physician Oncology 07/31/15 Urban To APRN, HOSPITAL HOUSEKEEPER [address] [place] [address] Nurse Practitioner Advanced Practice Nurse 03/28/23
--- OUTSIDE RECORDS SUMMARY | 2024-07-25 14:25 | XMS_ITS | Encounter Summary ---
Author Organization [facility] Healthcare Address [address] [place] [address] Care Team Providers Care Cash Sales Audit Clerk Name Role Phone Naun Georges MD Unavailable [phone] Di Demarco MD Unavailable [phone] Thomas Ordoñez MD Unavailable Joseph Mccullough MD Unavailable [phone] Faith Hamm NP Primary Care Provider [phone] Reason for Visit * Reason Onset Date Comments Referral Request 12/30/2023 Encounter Details Date Type Department Care Team (Late st Contact Info) Description 12/30/2023 Telephone [facility] Medical Group Primary Care at [address] [place] [address] Faith Hamm NP [address] [place] [address] [address] [place] [address] Referral Request Social History Tobacco Use Types Packs/Day Years Used Date Smoking Tobacco: Never Smokeless Tobacco: Never Alcohol Use Standard Drinks/Week Comments No 0 [...] materials from doctor or pharmacy Never 03/11/2023 [facility] Utilities Answer Date Recorded In the past 12 months has th e electric, gas, oil, or water company threatened to shut off services in your [...] often do you attend chur ch or jain services? More than 4 times per year 04/13/2023 Do you belong to any clubs o r organizations such as catholic groups, unions, fraternal or athletic groups, or [...] points, staff should administer the PHQ-9) 1 12/25/2023 Hunger Vital Sign Answer Date Recorded Within [...] place to sleep or slept in a half-way (including now)? No 04/13/2023 Personal Safety Answer Date Recorded Have you ever been in or are you currently in a harmful physical or emotional relationship or is someone making you feel afraid or unsafe? Denies 03/13/2023 Education Answer Date Recorded What is the highest level of school you have completed or the highest degree you have received? High school graduate 03/16/2023 Comments No Sex and Gender Information Value Date Recorded Sex Assigned at Not on file Legal Sex Female 5:37 PM DIRECTOR PROCESS Gender Identity Not on file Sexual Orientation Not on file documented as of this encounter Miscellaneous Notes * Telephone Encounter - Pinky Flores MA - 01/04/2024 1:13 PM DIRECTOR PROCESS Patient called back and CTOR PROCESS * Telephone Encounter - Lazara Ocasio - 01/04/2024 1:12 PM CST Call Back Caller???s Concern: Patient is returning call to Angie to give information. CS warm transferred call to backline Does message need to be routed? No CTOR PROCESS * Telephone Encounter - Angie Serna MA - 01/04/2024 12:53 PM CST Spoke with her, Uncomfortable when sitting. Urinary urgency. Pt states urologist office is at [facility] and gave me a phone number of [phone] but that phone number is not working when I tried to call. Pt states she will do some research and call back with the info. CTOR PROCESS * Telephone Encounter - Mercy Fulton - 12/30/2023 3:34 PM CDT Call Back Caller???s Concern: Patient called back. Providers name is: [facility] Does message need to be routed? Yes-Action Needed * Telephone Encounter - Simon Adorno - 12/30/2023 3:13 PM CDT Medical Question/Miscellaneous Caller???s Concern: AC started referral. Patient will call back with the provider's correct spelling of name and address. Phone number patient provider is to a pain management clinic. Does message need to be routed? No documented in this encounter Plan of Treatment Not on file documented as of this encounter Goals Goal Patient Goal Type Associated Problems Recent Progress Patient-Stated? Author [facility]-Pain Behavioral Health Improving(03/2022 12:53 PM DIRECTOR PROCESS) No Betty Elizabeth, RN Note: Patient will establish a comfort-function goal and identify the pain level that will allow the patient to perform desired activities and achieve an acceptable quality of life. documented as of this encounter Visit Diagnoses Not on filedocumented in this encounter Care Teams Cash Sales Audit Clerk Relationship Specialty Start Date End Date Faith Hamm NP [address] [facility] [address] [place] [address] PCP - General Family Medicine 10/16/23 [place] [address] [address] [address] Consulting Physician Endocrinology 03/29/18 [place] [address] [address] [address] Consulting Physician Nephrology 02/27/21 Thomas Ordoñez MD [address] [facility], [address] [address] Consulting Physician Medical Oncology 05/22/21 Joseph Mccullough MD [address] [place] [address] DR GALVAN [address] [place] [address] Consulting Physician Gastroenterology 03/19/23 documented as of this encounter
--- OUTSIDE RECORDS SUMMARY | 2024-07-25 14:25 | XMS_ITS | Clinical Summary ---
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 Name Role Phone Naun Georges MD Unavailable [phone] Di Demarco MD Unavailable [phone] Thomas Ordoñez MD Unavailable Joseph Mccullough MD Unavailable [phone] Faith Hamm NP Primary Care Provider [phone] Allergies Active Allergy Reactions Criticality Noted Date [...] syringe-needle U-100 0.5 mL 31 gauge x 5/16 syringeIndicati ons:Type 2 diabetes mellitus with hyperglycemia, [...] hyperglycemia, with long-term current use of insulin ([facility]) TEST BLOOD SUGAR FOUR TIMES [...] hyperglycemia, with long-term current use of insulin ([facility]) Use to inject 4 times [...] hyperglycemia, with long-term current use of insulin ([facility]) INJECT 8-14 UNITS UNDER SKIN 3 TIMES [...] with long-term current use of insulin (HCC) Take 1 tablet (2.5 mg total) by [...] for 7 days 14 tablet/caps ule 07/05/19 25 025 Active Problems Problem Noted Date Diagnosed [...] 01/01 Assessment & Plan (01/20/2024 8:47 PM RESERVE OPERATOR): Annual Medicare wellness exam completed today. All [...] 04/09/2023 Assessment & Plan (04/09/2023 4:00 PM RESERVE OPERATOR): Due to patient's current condition of odontoid fracture, and the fact that she has in a neck brace, she has increased risk for balance issues and falling. Patient would benefit from home physical therapy/occupational therapy. Both of these services were ordered during patient's hospital discharge planning. Dependent edema 04/07/2023 Assessment & Plan (07/06/2024 7:00 PM CDT): Assessment & Plan (04/08/2023 10:01 AM RESERVE OPERATOR): Trial of low-dose furosemide. Encouraged use of compression stocking, elevated legs above heart when possible. Follow advise of PT/OT. H/O gastrointestinal hemorrhage 03/13/2023 Right adrenal mass 02/10/2023 Assessment & Plan (02/12/2023 1:47 PM RESERVE OPERATOR): #Indeterminate hypoattenuating lesion within the left inferior [...] 2022 Assessment & Plan (04/08/2023 10:00 AM RESERVE OPERATOR): Slowly improving, currently in a neck brace. Keep isdney appts with specialists. Assessment & Plan (02/16/2023 12:26 PM RESERVE OPERATOR): # C2 type II odontoid fracture with epidural hematoma - NSGY Spine consult (Dr. Rodriguez) - CTA head/neck - no evidence of vascular injuries - Pain control - [place] at all times - Q4H NCs [...] the cervical spine -- Continue to wear [place] brace at all times Closed fracture of spinous process of thoracic v ertebra 02/09/2023 Assessment & Plan (02/09/2023 11:52 AM RESERVE OPERATOR): T4 spinous process fx - PT/OT - Pain control At risk for inadequate oral intake 02/09/2023 Assessment & Plan (02/10/2023 1:33 PM RESERVE OPERATOR): - Patient reports having poor intake due to throat pain/[place] - Supplements ordered - 02/10 re-educated patient on goal of at least 1 Ensure per mealtime Other closed displaced odontoid fracture, initia l encounter 02/08/2023 Ductal carcinoma of breast, right 04/11/2021 Recurrent malignant neoplasm of right breast 11/2021 Overview (09/18/2022): Assessment: Right breast invasive ductal cancer stage I A ER positive OR positive Lumpectomy plus radiation followed by anastrozole for 5 years. Second right breast cancer, invasive ductal with lobular features-04/09/2021 Grade 1 ER positive OR positive HER2 0 Ki-67 15% Shows simple [...] 02/07/2021 Assessment & Plan (02/07/2021 10:19 AM RESERVE OPERATOR): Trial of famotidine. Abnormal mammogram of right [...] PM CDT): Advise to keep following with chief accountant Assessment & Plan (08/31/2020 5:39 PM CDT): [...] meds. Assessment & Plan (02/07/2021 10:17 AM RESERVE OPERATOR): At baseline, cont current Rx meds. Assessment & Plan (08/31/2020 5:38 PM CDT): At baseline, cont current mgmt. Assessment & Plan (01/20/2020 12:54 PM RESERVE OPERATOR): Occasional wheezing. Patient home nebulizer machine broke according to the patient. New prescription sent for another home nebulizer. Uses directed. Assessment & Plan (10/20/2019 1:46 PM CDT): Clinically improved, continue current meds. DDD (degenerative disc disease), lumbar 05/10/19 Assessment & Plan (01/20/2020 12:57 PM RESERVE OPERATOR): Encouraged qsyzf-wp-[id number] exercises as tolerated. Managed by pain management. 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 Assessment & Plan (01/20/2020 12:56 PM RESERVE OPERATOR): He is asymptomatic. Continue current medications. Assessment [...] flonase. Assessment & Plan (02/07/2021 10:17 AM RESERVE OPERATOR): Asymptomatic. Stable. Continue current prescription medications. Assessment & Plan (01/20/2020 12:54 PM RESERVE OPERATOR): Stable. Cont. Current meds. Assessment & Plan [...] ENT Assessment & Plan (01/20/2020 12:55 PM RESERVE OPERATOR): Asymptomatic. Managed by ENT. Assessment & Plan (01/16/2019 1:05 PM RESERVE OPERATOR): Resolved. Assessment & Plan (08/05/2017 7:58 AM [...] understanding. Assessment & Plan (01/16/2019 1:04 PM RESERVE OPERATOR): Raymundo, cont current meds. Assessment & Plan (06/01/2017 1:30 PM CDT): She needs diagnosis of asthma, she needs outpatient pulmonary function test and follow up with christian science practitioner. Also recommend ENT consultation due to sinus [...] 11/26/2016 Assessment & Plan (01/20/2020 12:57 PM RESERVE OPERATOR): Stable. Managed by pain specialist. Assessment & Plan (10/20/2019 1:49 PM CDT): Managed by Pain specialists. Assessment & Plan (01/16/2019 1:05 PM RESERVE OPERATOR): Pain controlled. Diabetic peripheral neuropathy 11/26/2016 Assessment & Plan (11/10/2023 10:44 AM CDT): Chronic problem. Reviewed foot care; needs to lotion daily. Aware to check feet nightly, not to go barefoot. Assessment & Plan (04/07/2023 11:25 AM RESERVE OPERATOR): May be contributing to her balance issues, in addition to the fact that she recently broke her neck. Patient encouraged to be careful when trying to ambulate and ask for help when needed. Assessment & Plan (09/18/2022 7:31 PM CDT): Stable. Cont. Current prescription medications, gabapentin. Managed by Pain specialists. Assessment & Plan (01/20/2020 12:55 PM RESERVE OPERATOR): Asymptomatic. Managed by Endocrinology. Assessment & Plan (01/16/2019 1:06 PM RESERVE OPERATOR): Clinically improved. Assessment & Plan (06/22/2018 3:50 AM CDT): Patient follows with Dr. Fonseca and receives tramadol p.r.n.. Hold tramadol at this time as patient will be receiving Norcos. OA (osteoarthritis) 11/26/2016 Assessment & Plan (01/16/2019 1:05 PM RESERVE OPERATOR): On tramadol. Polymyalgia rheumatica 11/26/2016 Assessment & Plan (09/18/2022 7:31 PM CDT): Stable. Cont. Current prescription medications, Tramadol, gabapentin, managed by Pain Specialist. Assessment & Plan (01/20/2020 12:57 PM RESERVE OPERATOR): Stable. Managed by pain specialist. Assessment & Plan (10/20/2019 1:48 PM CDT): Managed by pain specialists. Assessment & Plan (01/16/2019 1:06 PM RESERVE OPERATOR): On tramadol. Hyperlipidemia associated with type 2 diabetes macie rosales 05/21/2016 Overview (11/26/2016): Hyperlipidemia Assessment & Plan (11/10/2023 10:17 AM CDT): Chronic problem, at goal on current Rosuvastatin 40mg. Last lipid panel: 10/16/23 LDL=58, JX=889. No changes at this time. Assessment & Plan (10/17/2023 8:00 PM CDT): Continue to limit fats in diet and take atorvastatin 80 mg daily Assessment & Plan (02/09/2023 11:41 AM RESERVE OPERATOR): - Rosuvastatin Assessment & Plan (12/15/2022 11:35 AM CDT): On statin therapy Tolerating well Assessment & Plan (09/18/2022 7:23 PM CDT): LDL at goal of less than 100, continue current prescription medications, rosuvastatin. Assessment & Plan (05/05/2022 11:55 AM RESERVE OPERATOR): Chronic problem, at goal on current Rosuvastatin 40mg. Last lipid panel: 09/09/21 LDL=63, MA=778. No changes at this time. Assessment & Plan (10/27/2021 5:57 PM CDT): LDL at goal of less than 100, continue current prescription medications. Assessment & Plan (09/09/2021 11:32 AM CDT): On statin therapy Tolerating well Assessment & Plan (03/25/2021 1:30 PM RESERVE OPERATOR): On statin therapy Tolerating well Assessment & Plan (02/07/2021 10:17 AM RESERVE OPERATOR): LDL at goal of < 70. Cont current Rx meds. Assessment & Plan (11/19/2020 3:49 PM CDT): On statin therapy Tolerating well Assessment & Plan (01/20/2020 12:53 PM RESERVE OPERATOR): Elevated. Low-cholesterol diet recommended. Continue current medications. Managed by Endocrinology. Assessment & Plan (10/20/2019 1:46 PM CDT): Low chol diet recommended. Cont current mgmt. Assessment & Plan (09/12/2019 10:29 PM CDT): On statin therapy Tolerating well Assessment & Plan (09/04/2018 5:13 PM CDT): On statin therapy Tolerating well Assessment & Plan (06/22/2018 3:47 AM CDT): Continue statin Assessment & Plan (04/27/2018 7:20 AM RESERVE OPERATOR): Lipid abnormalities are worsening. Nutritional counseling was provided. and Pharmacotherapy as ordered. Lipids will be reassessed in 6 months. Assessment & Plan (02/07/2018 11:18 PM RESERVE OPERATOR): Pt on statin therapy Tolerating well Assessment & Plan (10/10/2017 10:42 PM CDT): Lipid abnormalities are unchanged. Nutritional counseling was provided. and Pharmacotherapy as ordered. Lipids will be reassessed in 6 months. 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 Orders: Ambulatory referral to Wound Clinic; Future Assessment & Plan (02/09/2024 8:32 PM RESERVE OPERATOR): eGFR 47 on 09/17/2023. Currently on lisinopril [...] exam Assessment & Plan (02/17/2023 3:04 PM RESERVE OPERATOR): - Home regimen: Novolog slide, insulin glargine [...] daughter to come to examination room from [facility]. She was not aware of which medications her mother was on either. Assessment & Plan (05/05/2022 11:56 AM RESERVE OPERATOR): Chronic problem, near goal. A1c slowly trending [...] each visit Will do order process for [employer] G 6 CGM Advised to follow with Podiatry Follow-up in 6 months Assessment & Plan (03/25/2021 1:46 PM RESERVE OPERATOR): Chronic, uncontrolled, improving slowly A1c today 8.7% [...] meds. Assessment & Plan (01/20/2020 12:53 PM RESERVE OPERATOR): Uncontrolled. Managed by endocrinology. Patient encouraged to [...] months. Assessment & Plan (01/16/2019 1:03 PM RESERVE OPERATOR): Managed by endocrinology. Assessment & Plan (09/04/2018 [...] now , they plan to go to [facility] Reminded to bring in blood sugar diary at next visit. Dietary recommendations for ADA diet. Regular aerobic exercise. Discussed ways to avoid symptomatic hypoglycemia. Discussed sick day management. Discussed foot care. Reminded to get yearly retinal exam. Diabetes will be reassessed in 2 weeks . Assessment & Plan (04/27/2018 7:20 AM RESERVE OPERATOR): Diabetes is improving with treatment. - HbA1c [...] weeks. Assessment & Plan (02/07/2018 11:19 PM RESERVE OPERATOR): Diabetes is worsening. Recent HbA1c 12/2017 - [...] month. Assessment & Plan (01/07/2018 5:29 PM RESERVE OPERATOR): Diabetes is unchanged. Discussed foot care. Reminded to get yearly retinal exam. Keep sidney appt with new Buncher Operator. Changed Levemir to Toujeo in an attempt to lower Rx costs for patient. Instructed her to take the forms for Levemir with her to her new Buncher Operator it Toujeo was not more affordable. Assessment & Plan (10/10/2017 10:43 PM CDT): Diabetes is unchanged. Continue current treatment regimen. Reminded to bring in blood sugar diary at next visit. Dietary recommendations for ADA diet. Diabetes will be reassessed in 6 months. Assessment & Plan (03/21/2017 1:22 AM RESERVE OPERATOR): Poorly controlled type 2 diabetes insulin dependent [...] home. Assessment & Plan (05/05/2022 11:42 AM RESERVE OPERATOR): Chronic problem, well controlled on current carvedilol [...] appointment. Assessment & Plan (03/25/2021 1:30 PM RESERVE OPERATOR): Hypertension is improving with treatment. Continue current treatment regimen. Dietary sodium restriction. Regular aerobic exercise. Blood pressure will be reassessed at the next regular appointment. Assessment & Plan (02/07/2021 10:15 AM RESERVE OPERATOR): Clinically improved, continue current prescription medications. Assessment & Plan (11/19/2020 3:49 PM CDT): Hypertension is improving with treatment. Continue current treatment regimen. Dietary sodium restriction. Regular aerobic exercise. Blood pressure will be reassessed at the next regular appointment. Assessment & Plan (08/31/2020 5:37 PM CDT): BP remains within goal, keep sidney appt with chief accountant. Cont current mgmt. Assessment & Plan (10/20/2019 [...] monitor. Assessment & Plan (04/27/2018 7:20 AM RESERVE OPERATOR): Hypertension is improving with treatment. Continue current treatment regimen. Dietary sodium restriction. Regular aerobic exercise. Blood pressure will be reassessed at the next regular appointment. Assessment & Plan (02/07/2018 11:18 PM RESERVE OPERATOR): Hypertension is chronic, well controlled for pt [...] appointment. Assessment & Plan (03/21/2017 1:23 AM RESERVE OPERATOR): Hypertension fairly controlled Will continue with home lisinopril Chronic diastolic congestive heart failure Assessment & Plan (09/18/2022 7:36 PM CDT): Patient and patient's daughter deny this condition. Reviewed most recent ECHO, results state normal left ventricular diastolic function. . Asked patient to re-establish care with cardiology. Patient is lost to follow up since her spray machine operator left town. Patient currently asymptomatic. Assessment & Plan (10/20/2019 1:48 PM CDT): At baseline, managed by cardiology. Nocturnal hypoxemia Esophageal dysmotilities Resolved Problems Problem Noted Date Diagnosed Date Resolved Date Discharge planning issues 02/09/2023 Assessment & Plan (02/17/2023 2:44 PM RESERVE OPERATOR): - 02/09 pending PT/OT, c spine xrays, okay to TTF - 02/10 cspine xrays completed today, OT rec IRF, PT rec home w/ 24 hr supervision, referrals sent per CM, okay to TTF, lizabeth removed void check pending, continue to encourage Ensure intake - Patient is medically stable for discharge, SW/CM updated. Discharge pending facility acceptance - 02/17 discharge Class 1 obesity due to exces s calories with serious comorbidity and body mass index (BMI) of 31.0 to 31.9 in adult 05/05/2022 11/10/2023 Assessment & Plan (05/05/2022 11:08 AM RESERVE OPERATOR): Discussed healthy diet and importance of regular physical activity (20- 30min/day, 150min/wk). 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 Assessment & Plan (03/25/2021 1:53 PM RESERVE OPERATOR): Advised to follow up with Crime Analyst Pt has appt on apr 02 2021 Gave instructions for local wound care Acute hypoxemic respiratory failure 04/27/2019 10/20/2019 Acute lower respiratory tract infection 04/27/2019 07/01/2019 BMI 27.0-27.9,adult 01/14/2019 04/21/19 23 Assessment & Plan (11/18/2019 1:40 PM CDT): Healthy, low carbohydrate lifestyle and exercise Dizziness 01/14/2019 10/20/2019 Assessment & Plan (01/16/2019 1:03 PM RESERVE OPERATOR): May be secondary to anti-hypertensives. Decrease lisinopril [...] tolerated tramadol and has had prescriptions for [place] as in the past. Order patient Marshall as p.r.n.. Patient recently had a STEMI in March and is currently on aspirin and Brilinta will have to avoid NSAIDs for now. Assessment & Plan (06/21/2018 12:56 PM CDT): Acute, Worsening, Pt needs I and D and IV antibiotics Pt going to ER now ( [facility] ) Acute pain of right knee 05/04/2018 Assessment & Plan (05/04/2018 3:09 PM RESERVE OPERATOR): Will obtain x-ray. Taking tylenol for pain. Asking for something stronger. Referral to Dr. Bunch, [facility] per pt request. ST elevation myocardial infa [...] 10/09/2017 Assessment & Plan (03/21/2017 1:26 AM RESERVE OPERATOR): The patient was started on the Rocephin [...] respiratory failure with hypoxia 10/09/2017 Influenza 07/01/2019 Encounters Date Type Department Care Team Description 07/20/2024 9:00 AM CDT Orders Only [facility] [address] [place] [id number] 07/13/2024 8:00 AM CDT Orders Only [facility] [address] [place] [address] Cellulitis of right lower extremity; Venous stasis ulcer of right calf limited to breakdown of skin without varicose veins (HCC); Type 2 diabetes mellitus with stage 3a chronic kidney disease, with long-term current use of insulin (HCC) 07/12/2024 3:19 PM CDT - 07/12/2024 11:59 PM CDT Hospital Encounter [facility] [address] [facility] [address] [place] [address] Thomas Washington MD Degeneration of intervertebral disc of lumbar region, unspecified whether pain present; Diabetic peripheral neuropathy (HCC) Discharge Disposition: Discharge to home or self care 07/06/2024 10:30 AM CDT Office Visit [facility] [address] [place] [address] Faith Hamm NP Cellulitis of right lower extremity (Primary Dx); Dependent edema; Venous stasis ulcer of right calf limited to breakdown of skin without varicose veins (HCC); Type 2 diabetes mellitus with stage 3a chronic kidney disease, with long-term current use of insulin (HCC) 07/04/2024 10:15 AM CDT Office Visit [facility] [place] [address] [place] [id number] Ronel Leung NP Leg swelling (Primary Dx); Dependent edema; Cellulitis of right lower extremity 07/04/2024 Nurse Triage [facility] [address] [place] [address] Faith Hamm NP 06/20/2024 Telephone [facility] [address] [place] [address] [address] [place] [address] Shameka Ray NP from Last 3 Months Immunizations Immunization Administration Dates Next Due COVID-19 [...] Free, Intramuscular 01/14/2019,01/07/2018,01/23/2016 Influenza, Trivalent, IM (MDV) 3,12/31/2014,01/30/2014,11/14 Influenza, Unspecified 01/20/2024,2023(Deferred: Patient Refused),12/08/2022(Deferred: Patient Refused),12/08/2022(Deferred: Patient Refused),12/08/2022(Deferred: Patient Refused),12/10/2020,12/21/2019 PPD TEST 03/21/2023,02/19/2023 Viratech SARS-CoV-2 Monovalent Vaccination (12+ Yrs) PURPLE 05/08/2020,04/29/2020 Pneumococcal Conjugate PCV 13 04/14/2017 Pneumococcal Conjugate Pcv20 01/20/2024 Pneumococcal Polysaccharide PPV23 03/02/2006 RSV Vaccine, Pref, Recombina nt, Subunit, Adjuvanted, PF, IM (Arexvy) 01/08/2023 Td, adsorbed 03/02/2005 Tdap 04/14/2017 Tetanus Toxoid, Unspecified 04/14/2017, 6 ZOSTER LIVE 03/02/2010 ZOSTER Recombinant 12/03/2020,07/24/2020 Zoster, unspecified 12/03/2020,07/24/2020,2010 Surgical History Surgery Date Site/Laterality Comments RADICAL HYSTERECTOMY 03/02/1969 - 03/01/1970 Hysterectomy, radical OTHER SURGICAL HISTORY left hip nailing HIP SURGERY 03/02/2014 - 03/01/2015 lt Hip Surgery BREAST SURGERY CARDIAC SURGERY 03/02/2018 - 03/01/2019 stent placed BREAST CYST EXCISION 1989? Left unsure which side BREAST LUMPECTOMY 03/02/2011 - 03/01/2012 Right breast ca with radiation HYSTERECTOMY 03/02/1969 - 03/01/1970 OOPHORECTOMY BREAST BIOPSY 04/09/2021 Right MASTECTOMY 03/02/2021 - 03/01/2022 right side. COLONOSCOPY Medical History Medical History Date Comments Diabetes mellitus (HCC) Diabetes mellitus Calculus of gallbladder [place] e Arthritis Mild persistent asthma with exacerbation 05/31/2017 COPD exacerbation (HCC) Acute on chronic diastolic (congestive) heart failure (HCC) Fibrocystic breast Neuropathy states has hx of neuropathy in bilat feet Heart attack (HCC) Hypertension states doesn't h ave high bp, takes for kidney maintainence Heart attack (HCC) Coronary artery disease invo lving sun'aq coronary artery without angina pectoris 06/22/2018 Kidney disease History of radiation therapy 2012 rig ht breast Malignant neoplasm of female breast (HCC) 2012 right breast ca Glaucoma left eye Breast cancer (HCC) Family History Medical History Relation Name Comments Heart disease Brother 2 Heart disease; Diabetes Brother 3 Diabetes mellit us; Lung cancer Brother 4 Cancer, lung; Other Brother 5 Alive and well; Breast cancer Father's Sister Stroke Mother Stroke; Breast cancer Mother's Sister Breast cancer Paternal cousin Diabetes Sister Diabetes mellit us; Ovarian cancer Neg Hx Thyroid cancer Neg Hx Relation Name Status Comments Brother 1 Alive Brother 2 Brother 3 Brother 4 Brother 5 Cousin Alive Father's Sister Mother (Age 96) Mother's Sister Paternal cousin Sister Social History Tobacco Use Types Packs/Day Years [...] materials from doctor or pharmacy Never 03/11/2023 [facility] Utilities Answer Date Recorded In the past 12 months has e [email or web address], [employer], oil, or water [employer] threatened to shut off services in your [...] 04/13/2023 How often do you attend chur or mormonism services? More than 4 times per year 04/13/2023 Do you belong to any clubs o r organizations such as roman catholic groups, unions, fraternal or athletic groups, [...] place to sleep or slept in a senior living (including now)? No 04/13/2023 PHQ-9 Answer Date [...] on file Legal Sex Female 5:37 PM RESERVE OPERATOR Gender Identity Not on file Sexual Orientation Not on file Obstetrics History Para Term AB IAB SAB Ectopic Multiple Livin g Live Births 1 1 1 Date Outcome GA Total Labor Labor/2nd/3rd Weight Sex Type Anes PTL Paty A1 A5 Name Clin Term Last Filed Vital Signs Vital Sign Reading [...] 07/06/2024 10:39 AM CDT Plan of Treatment Health Maintenance Due Date Last Done Comments Albumin Creatinine Ratio, Urine 09/19/2023 09/18/2022, 09/09/2021, 08/23/2020 Foot Exam 12/16/2023 12/15/2022, 08/30, 03/25/2021, Additional history exists Covid-19 Vaccine (2023- 5 season) 2024 01/20/2024, 12/09/2022, 12/30/2021, Additional history exists Hemoglobin A1C 05/09/2024 11/10/2023, 11/30, 09/18/2022, Additional history exists Lipid Panel 10/15/2024 10/16/2023, 08/31, 09/09/2021, Additional history exists Fall Risk Assessment 01/19/2025 01/20/2024, 04/07/2023, 03/19/2023, Additional history exists Well Visit 65+ 01/19/2025 01/20/2024, 09/30, 09/18/2022, Additional history exists eGFR 03/22/2025 03/22/2024, 05/2024, 09/17/2023, Additional history exists Depression Screening 07/12/2025 07/12/2024, 07/12/2024, 03/17/2024, Additional history exists DTaP/Tdap/Td Vaccine (2 - Td or Tdap) 04/14/2027 04/14/2017, 03/02/2005 Osteoporosis Screening-Bone Density Scan Discontinued 08/23/2020, 08/23/2020, 12/15/2017, Additional history exists Zoster Vaccine Completed 12/03/2020, 05/2020, 07/24/2020, Additional history exists Dilated Eye Exam Discontinued 04/02/2023, , 08/21/2022, Additional history exists Hepatitis B Screening Completed 10/16/2023 Influenza Vaccine Completed 01/20/2024, , 12/09/2022, Additional history exists Pneumococcal vaccine 65+ Completed 024, 04/14/2017, 03/02/2006 Goals Goal Patient Goal Type Associated Problems Recent Progress Patient-Stated? Author [facility] Improving(03/2022 12:53 PM RESERVE OPERATOR) Betty Aiken, RN Note: Patient will establish a comfort-function goal and identify the pain level that will allow the patient to perform desired activities and achieve an acceptable quality of life. Medical Devices Implanted Type Area Digital Sales Executive Device Identifier Shelf Expiration Date Model / Serial / Lot Bard Peripheral Vascular [id number] Ultraclip Bard 17ga 10cm 2 Trigger Permanent Ultrasound - [id number] - [id number] Implanted:Qty: 1 on 04/09/2021 by Thomas Davila MD at [facility] Breast Right: Breast Bard Peripheral [employer] 09/27/2023 [id number] / [id number] / [employer] [id number] Xience Bree 3mm 18mm Rapid Exchange System Coronary Stent - [id number] Implanted:Qty: 1 on 03/12/2018 by Jacob Mary MD at [facility] [employer] 12/06/2018 [id number] / / [id number] Procedures Procedure Name Priority Date/Time Associated Diagnosis Comments EGFR STAT 03/22/2024 7:24 AM RESERVE OPERATOR POCT HEMOGLOBIN A1C Routine 11/10/2023 9:57 AM CDT Type 2 diabetes mellitus with stage 3a chronic kidney disease, with long-term current use of insulin (HCC) LIPID PANEL Routine 10/16/2023 2:36 PM CDT Screening for lipid disorders DIABETES EYE EXAM Routine 04/02/2023 9:12 AM RESERVE OPERATOR ALBUMIN CREATININE RATIO, URINE Routine 09/18/2022 12:53 [...] Results * (ABNORMAL) eGFR (03/22/2024 7:24 AM RESERVE OPERATOR) eGFR 34(L) >=60 mL/min/1. 73 m2 Comment: [...] last reviewed 2020. Blood 03/22/2024 7:24 AM RESERVE OPERATOR 03/22/2024 7:30 AM RESERVE OPERATOR Sara Hastings MD LAB BLOOD ORDERABLES Kaylah l Result RUSTY TALBOT ([place]) 1 [facility] Department of Laboratories [place], [place] [id number] * (ABNORMAL) POCT hemoglobin A1c (11/10/2023 9:57 [...] on 2017. Triglycerides 202(H) <=149 mg/dL RUSTY CALERO Comment: Interpretive Data Ages < or = [...] on 2017. HDL 42 >=40 mg/dL RUSTY CALERO Comment: Interpretive Data Ages < or = [...] 2017. LDL, calculated 58 <=129 mg/dL RUSTY CALERO Comment: Interpretive Data Ages < or = [...] Pediatrics 2011;128:S213 2. NCEP Expert Panel. Circulation 2003;110:227 Current Interpretive Data was last revised on 2017. Non-HDL Cholesterol 98 mg/dL RUSTY CALERO Comment: Interpretive Data Ages < or = [...] Pediatrics 2011;128:S213 2. NCEP Expert Panel. Circulation 2003;110:227 Current Interpretive Data was last revised on 2017. Chol/HDL ratio 3 CERNER CH Blood 10/16/2023 2:36 PM CDT 10/16/2023 8:28 PM CDT us Faith Hamm SHEAR ASSEMBLER LAB BLOOD ORDERABLES Final Re sult RUSTY [address] Department [place] [address] * (ABNORMAL) DIABETES EYE EXAM (04/02/2023 9:12 AM RESERVE OPERATOR) Historical Provider HEALTH MAINTENANCE Final Result * (ABNORMAL) Albumin Creatinine Ratio, Urine (09/18/2022 12:53 PM CDT) Albumin Ur 1,043.2 mg/L CERNER AM [facility] ([place]) Comment: Interpretive Data No reference range established. Current interpretive data was last revised 2018. Testing performed by: [facility], [address] [place] [address]., [address] Creatinine Ur 92.2 mg/dL [facility] ([place]) Comment: Interpretive Data No reference range established. Current interpretive data was last revised 2018. Testing performed by: [facility], [address] [place] [address]., [address] Albumin Creatinine Ratio, Ur 1,131(H) 1 - 29 mg/g [facility]ER [facility] ([place]) Comment:Testing performed by : [address] [address] Urine 09/18/2022 12:5 3 PM CDT 09/18/2022 7:11 PM CDT us Natalia Vang DO LAB URINE ORDERABLES Final Result RUSTY [facility] ([place]) 1 [facility] Department [place] [address] * Dexa Axial Skeleton Bone Density 1 or 2 Site (08/23/2020 12:03 PM CDT) Anatomical Region Laterality Modality Body N/A Other 08/23/2020 12:3 1 PM CDT Narrative 08/23/2020 12:33 PM CDT EXAM DESCRIPTION: DEXA AXIAL SKELETON BONE DENSITY 1 OR MORE SITES REASON FOR STUDY: Post-menopausal female, screening for osteoporosis. Digital Sales Executive/Model: Newtopia Discovery SL (S/N [id number]) CLINICAL INFORMATION: Current height: 64 inches Maximum [...] Electronically signed by Thomas Davila M.D. AB: AB Report ID: [id number] Reading Location: [id number] Procedure Note Thomas Davila MD - 08/23/2020 EXAM DESCRIPTION: DEXA AXIAL SKELETON BONE DENSITY 1 OR MORE SITES REASON FOR STUDY: Post-menopausal female, screening for osteoporosis. Digital Sales Executive/Model: Newtopia Discovery SL (S/N [id number]) CLINICAL INFORMATION: Current height: 64 inches Maximum [...] by Thomas Davila M.D. AB: Report ID: [id number] Reading Location: [place] [address] Natalia Vang DO IMG DXA PROCEDURES Final R esult * DIABETES FOOT EXAM (07/22/2017) [facility] Diabetic Foot Exam Unknown Historical Provider HEALTH MAINTENANCE Final Result from Last 3 Months or Most Recently Relevant to Health Maintenance Insurance [facility] MEDICARE ADVANTAGE IDFL [facility] MEDICARE ADVANTAGE Advance Directives For more information, please contact: [phone] * Full Code (Latest Code Status on [...] 12:11 AM 04/30/2019 7:11 PM Care Teams Boat Repairer Relationship Specialty Start Date End Date Faith Hamm NP [address] [facility] [address] [place] [address] PCP - General Family Medicine 10/16/23 [place] [address] [facility] [address] [place] [address] Consulting Physician Endocrinology 03/29/18 [place] [address] [facility] [address] [place] [address] Consulting Physician Nephrology 02/27/21 Thomas Ordoñez MD [address] [facility], [address] [id number] Consulting Physician Medical Oncology 05/22/21 Joseph Mccullough MD [address] [place] [address] [address] Consulting Physician Gastroenterology 03/19/23
--- OUTSIDE RECORDS SUMMARY | 2024-07-25 14:25 | XMS_ITS | Data Portability ---
Author Organization [facility] [place] Address [address] [place] [address] Care Team Providers Care Demand Inspector Name Role Phone FAITH JAMIL Primary Care Provider Assessment No assessment recorded. Plan of Treatment Reminders Order Date Submit Date Provider Last Modified By Organization Details Last Modified Time Details Appointments None recorded. Lab None recorded. Referral None recorded. Procedures fitting and insertion , pessary (PROC) [address], [address], [place], [address], 14:19:55 Surgeries None recorded. Imaging None recorded. Medication Orders clotrimaz ole-betam ethasone 1 %-0.05 % topical cream [facility] [address], [address], [place], [place], [id number], 12:39:07 Patient TargetsNo targets recorded. Patient InstructionsNo instructions recorded. Reason for Referral None Reported. Results Created Date Observation Date Name Description Value Unit Range Abnormal Flag Note LastModifiedBy Organization Detail LastModifiedTime 04/06/1904/06/2024 fitti ng and inser tion, pessa ry (PROC ) provider notes Not Available [facility] [address], [place], [address], 04/06/2024 14:19:05 Result Notes None recorded. Procedures Surgical History Date Name Laterality Status Provider Name and Address Organization Details Recorded Time 04/06/19 25 Pessary Insertion completed Idris Webb MD [address], [place], [address], [facility] 04/06/2024 15:54:26 04/05/19 25 Pessary Insertion completed Idris Webb MD [address], [place], [address], [facility] 04/05/2024 12:42:35 03/02/19 22 Mastectomy completed [facility] 04/05/2024 11:59:26 03/02/18 74 Total Hysterectomy completed [facility] 04/05/2024 11:59:07 Imaging Results None recorded. Procedure Notes None recorded. Medical Equipment None Reported. Allergies Allergen ID Allergen Name Allergen Category Reaction Reaction Severity Criticality Documentation Date Start Date Code Code System Note Provider Name and Address Organization Details Recorded Time 73018 codeine medicatio n Not available Not available Not available 04/05/2024 2670 Rx[facility] 5 11:39:55 84567 Product containin g penicilli n (product) medicatio n Not available Not available Not available 04/05/2024 22265 8001 SNOMED [facility] 5 11:40:17 Medications Name Sig Start Date Stop Date Status Note LastModified by Organization Details LastModified Time methocarbam ol 500 mg tablet TAKE 1 TABLET BY MOUTH TWICE A DAY active Not Available Not Available No t Available carvedilol 6.25 mg tablet TAKE 1 TABLET BY MOUTH TWICE A DAY WITH MEALS active Not Available Not Available No t Available fluconazole 150 mg tablet TAKE 1 TABLET BY ORAL ROUTE FOR 1 DAY, FOR AND REPEAT IN 48 HOURS. active Not Available Not Available No t Available sulfamethox azole 800 mg-trimetho prim 160 mg tablet TAKE 1 TABLET BY MOUTH TWICE A DAY FOR 7 DAYS 04/05 completed Not Available Not Available Not Available cephalexin 500 mg capsule TAKE ONE CAPSULE BY MOUTH 2 TIMES A DAY FOR 7 DAYS 04/05 completed Not Available Not Available Not Available pantoprazol e 40 mg tablet,barbara yed release TAKE 1 TABLET BY MOUTH EVERY DAY active Not Available Not Available No t Available erythromyci n 5 mg/gram (0.5 %) eye ointment APPLY TO LEFT EYE 4 (FOUR) TIMES A DAY 04/05 completed Not Available Not Available Not Available clotrimazol e-betametha sone 1 %-0.05 % topical cream PLEASE SEE ATTACHED FOR DETAILED DIRECTION S active Not Available Not Available No t Available brimonidine 0.2 % eye drops INSTILL 1 DROP INTO LEFT EYE TWICE A DAY active Not Available Not Available No t Available dorzolamide 22.3 mg-timolol 6.8 mg/mL eye drops INSTILL 1 DROP INTO LEFT EYE TWICE A DAY 04/05 completed Not Available Not Available Not Available furosemide 20 mg tablet TAKE 0.5 TABLETS (10 MG TOTAL) BY MOUTH PHARMACY TECHNICIAN INPATIENT BEFORE BREAKFAST 04/05 completed Not Available Not Available Not Available fluticasone propionate 50 mcg/actuati on nasal spray,suspe nsion SPRAY 2 SPRAYS INTO EACH NOSTRIL EVERY DAY active Not Available Not Available No t Available lisinopril 2.5 mg tablet TAKE 1 TABLET BY MOUTH EVERY DAY active Not Available Not Available No t Available oxycodone 5 mg tablet TAKE 1 TABLET (5 MG TOTAL) BY MOUTH NIGHTLY NEEDED FOR PAIN MAY FILL 03/24 active Not Available Not Available No t Available insulin aspart (U-100) 100 unit/mL (3 mL) subcutaneou s pen INJECT 8-14 UNITS UNDER SKIN 3 TIMES A DAY WITH MEALS. 04/05 completed Not Available Not Available Not Available rosuvastati n 40 mg tablet TAKE 1 TABLET BY MOUTH EVERY DAY AT NIGHT active Not Available Not Available No t Available Contour Next Test Strips TEST BLOOD SUGAR FOUR TIMES DAILY 04/05 completed Not Available Not Available Not Available Movantik 12.5 mg tablet TAKE 1 TABLET BY MOUTH EVERY DAY active Not Available Not Available No t Available Priscilla Marshall U-300 Insulin 300 unit/mL (1.5 mL) subcutaneou s pen INJECT 30 UNITS UNDER THE SKIN DAILY active Not Available Not Available No t Available TechLITE Pen Needle 31 gauge x 5/16 USE TO INJECT 4 TIMES A DAY DIRECTED 04/05 completed Not Available Not Available Not Available Ozempic 0.25 mg or 0.5 mg (2 mg/3 mL) subcutaneou s pen injector INJECT 0.25 MG UNDER THE SKIN ONCE A WEEK 04/06 completed Not Available Not Available Not Available Vitals Date Recorded Body height Body mass index (BMI) Body weight Systolic And Diastolic Provider Name and Address Organization Details Last Updated DateTime 04/06/2024 157.48 cm 26.3 kg/m2 33643.3 g 118/66 mm[Hg] Mary Stone [facility] 04/06/2024 11:43:27 Social History Question Answer Notes LastModified by Organizat ion Details LastModified Time Tobacco Smoking Status Never Smoker Mary Stone [facility] 04/05/2024 11:43:09 Are You Blind Or Do You Have Difficulty Seeing? No Information n ot available 04/05/2024 What Is Your Level Of Caffeine Consumption? None Information not available 04/05/2024 In The 14 Days Before Symptom Onset, Have You Had Close Contact With A Laboratory-confirm ed COVID-19 While That Case Was Ill? No Information n ot available 04/05/2024 In The 14 Days Before Symptom Onset, Have You Had Close Contact With A Person Who Is Under Investigation For COVID-19 While That Person Was Ill? No Information not available 04/05/2024 Have You Been To An Area Known To Be High Risk For COVID-19? No Information not available 04/05/2024 Are You Deaf Or Do You Have Serious Difficulty Hearing? No Information not available 04/05/2024 Are There Any Guns Present In Your Home? No Information not available 04/05/2024 Are You Sexually Active? No Information not available 04/05/2024 Do You Have Smoke And Carbon Monoxide Detectors In Your Home? Yes Information not available 04/05/2024 Do You Use Sunscreen Routinely? Yes Information not available 04/05/2024 Do You Have Difficulty Walking Or Climbing Stairs? No Information not available 04/06/2024 Sex: Unknown Functional Status Question Answer Note LastModified by Organizat ion Details LastModified Time Do you use any illicit or recreational drugs? No Information not available 04/05/2024 What is your level of alcohol consumption? None Information not available 04/05/2024 Are you currently employed? No Information not available 04/05/2024 Are you able to walk? YESASSIST Information not available 04/06/2024 Are you able to care for yourself? No Information n ot available 04/05/2024 Do you have difficulty dressing or bathing? No Information not available 04/06/2024 Mental Status None recorded. Family History Nothing Reported. Medical History Condition Response Allergies (Food, seasonal, environmental ) N Other N Breast Cancer Y Drug/Latex Allergies/Reactions N Blood Transfusion N Dermatologic Disorders N Lung Disease N Defects or Inherited Disease N Breast Problem N Gestational Diabetes N Hematologic disorders N Anesthesia Complications N History of STI N Deep Vein Thrombosis N Polycystic ovary syndrome N Anxiety Disorder N Autoimmune disease N Arthritis N Infertility N Polyps N Acid Reflux (GERD) N History of abnormal pap N Cancer N Stroke N Varicosities N Neurologic/Epilepsy N Endometriosis N High Cholesterol Y Headaches N Fibromyalgia N Kidney Disease N Heart Problems N Kidney or Bladder Problems N Thyroid Problems N GI Problems N Eating Disorder N Anemia N Art (IVF or FET) N Psychiatric Illness N Ovarian Cancer N Diabetes Y Pulmonary (TB, Asthma) N Hepatitis/Liver Disease N No Past Medical History N Eczema N Urinary Tract Infection N Abuse/Domestic Violence N Asthma N Trauma/Violence N Depression/ depression N Heart Disease N Pre-Eclampsia N Hypertension N Osteoporosis N Thrombophilias N Gynecological History Statement/Question Response STIs/STDs N Menses Monthly N HPV Vaccine N Sexual Problems? N Current Control Method Hysterectom y LMP Unknown Sexually Active? 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 Her vagina is out of the introitus about 3-4 cm. It was replaced and a 2-1/2 cm ring with support pessary was inserted. The pessary may be slightly small. However, the pessary does push on the davies of the vagina with some tension. She will return in 1 week. She was treated with a vulvovagin itis. She has some fungal infection on the vulva. [id number] Idris Webb MD [place] [address],[facility] [place] [address] 04/06/2024 10:57:49 04/06/2024 16:11:32 Prolapse of female genital organs 39792971 N81.9 Health Concerns Section Related Observation LastModified by Organization Detai ls LastModified Time None Recorded Concern Status LastModified by Organization Details LastModified Time None Recorded Advance Directives Directive None Recorded Payers Encounter Date Sequence Insurance Name Policy Number Policy Wan Covered Member ID Wan Member ID Guarantor Name 04/05/2024 1 [facility] (MEDICARE REPLACEMENT/A DVANTAGE - PPO) [id number] Faith Lester [id number] Faith Lester 04/06/2024 1 [facility] (MEDICARE REPLACEMENT/A DVANTAGE - PPO) [id number] Faith Lester [id number] Faith Lester Notes Date Note Type Note Provider Name and Address Organization Details Recorded Time 04/05/2024 text/html This patient is a 89-year-old female who presents for pelvic organ prolapse. Her vagina is out of the introitus about 3-4 cm. It was replaced and a 2-1/2 cm ring with support pessary was inserted. The pessary may be slightly small. However, the pessary does push on the davies of the vagina with some tension. She will return in 1 week. She was treated with a vulvovaginitis. She has some fungal infection on the vulva. Idris Webb MD [address], [place], [address], [facility] 04/05/2024 12:43:45 04/06/2024 text/html Year old female who was fitted with a 2-1/2 inch ring with support pessary. The pessary fell out. . She has complete procidentia of the vagina. A 2-1/2 inch Gellhorn was placed. It is snug along the lateral aspects of the vagina. To observe. It will likely function appropriately. Idris Webb MD [address], [place], [address], [facility] 04/06/2024 15:55:03 OBGyn Episode Ob Episode Information Episode Created Date Number of Fetuses Patient Bloodtype Patient rh Status Prepregnancy Weight lbs Domestic Partner Domestic Partner Phone Father Name Pneumatic Tube Operator Status 04/05/19 25 1 CLOSED Fetus Data First Name Last Name Admitted to NICU Weight (g) Sex Living Outcome Pediatric Complications Fetus ID Race Codes Race Delivery Type Full Term [id number] Vaginal Delivery Daniel Calculation Initial Daniel Date Initial Exam Date Initial Exam Provider Initial Ultrasound Date Last Menstrual Period Date Ultra Sound Weeks Gestation 0 Eighteen To Twenty Week Daniel Update Ultra Sound Date Fundal Height At Umbil Quickening Date Ultra Sound Latest Weeks Gestation Final Daniel Confirmed By Final Daniel Confirmed Date Final Daniel Date Ultra Sound Latest Days Gestation 0 0 Menstrual History Last Menstrual Date Menses Monthly On Bcp Conception Prior Menses Frequency Hcg Plus Date Menarche Onset Age Delivery Information Delivery Date Delivery Type Labor Anesthesia Weeks Gestation Incision Type Labor Labor Length Hrs Delivered By Post Complications Tubal Sterilization Discharge Date Comments 9 Discharge Information Feeding Method Contraceptive Method Maternal HG B and HCT Levels
--- OUTSIDE RECORDS SUMMARY | 2024-07-25 14:25 | XMS_ITS | Encounter Summary ---
Author Organization [facility] Address [address] [place] [address] Phone Care Team Providers Care Geospatial Engineer Name Role Phone Hank Seymour MD Unavailable [phone] Sandip Murphy MD Unavailable [phone] Sony Patel MD Unavailable + Mariah Rose MD Unavailable [phone] Con Pete MD, Merrill Unavailable [phone]- [phone] Natalia Vang DO Primary Care Provider [phone] Urban To APRN, CNP Unavailable [phone] Reason for Visit * Reason Onset Date Comments Medication Refill 03/25/2023 Encounter Details Date Type Department Care Team (Late st Contact Info) Description 03/25/2023 Refill [facility] [address] [place] [address] Zack Mccullough, PAC [address] [place], [place] [address] Medication Refill Social History Tobacco Use Types Packs/Day Years Used Date Smoking Tobacco: Never Smokeless Tobacco: Never Alcohol Use Standard Drinks/Week Comments Yes 0 [...] documented as of this encounter Visit Diagnoses Diagnosis Other chronic pain- Primary documented in this encounter Care Teams Geospatial Engineer Relationship Specialty Start Date End Date Natalia Vang DO [address] [address] PCP - General Family Medicine 07/20/20 Hank Seymour MD Consulting Physician Radiation Oncology 07/31/15 Sandip Murphy MD Consulting Physician General Surgery 07/31/15 Sony Patel MD [address] [address] Consulting Physician Endocrinology 07/31/15 Mariah Rose MD 1 [facility] [place] [address] Consulting Physician Wound Care 07/31/15 Merrill Andujar Jr., MD [facility] [place] [address] Consulting Physician Oncology 07/31/15 Urban To APRN, SILVERING APPLICATOR [address] [place] [address] Nurse Practitioner Advanced Practice Nurse 03/28/23 documented as of this encounter
--- OUTSIDE RECORDS SUMMARY | 2024-07-25 14:25 | XMS_ITS | Encounter Summary ---
Author Organization [facility] Healthcare Address [address] [place] [address] Care Team Providers Care Piano Technician Name Role Phone Devaughn Bazan DO Unavailable Natalia Vang DO Primary Care Provider [phone] Naun Georges MD Unavailable [phone] Frankie Bright MD Unavailable [phone] Di Demarco MD Unavailable [phone] Thomas Ordoñez MD Unavailable Anne Marie Platt [facility] Unavailable [phone] Naun Georges MD Unavailable [phone] Mendez Shine RN Unavailable Joseph Mccullough MD Unavailable [phone] Faith Hamm NP Primary Care Provider [phone] Encounter Details Date Type Department Care Team (Late st Contact Info) Description 03/26/2021 Telephone [facility] [address] [place] [id number] Radha Miller, RN Social History Tobacco Use Types Packs/Day Years Used Date Smoking Tobacco: Never Smokeless Tobacco: Never Alcohol Use Standard Drinks/Week Comments No 0 (1 standard drink = 0.6 oz pur e alcohol) PHQ-2 Answer Date Recorded PHQ-2 Total Score (If total score is 3 or more points, staff should administer the PHQ-9) 4 03/28/2021 Comments No Sex and Gender Information Value Date Recorded Sex Assigned at Not on file Legal Sex Female 5:37 PM BRAZER INDUCTION Gender Identity Not on file Sexual Orientation Not on file documented as of this encounter Plan of Treatment Not on file documented as of this encounter Goals Goal Patient Goal Type Associated Problems Recent Progress Patient-Stated? Author BH-Pain Behavioral Health Improving(03/2022 12:53 PM BRAZER INDUCTION) No Betty Elizabeth, CIRA Note: Patient will establish a comfort-function goal and identify the pain level that will allow the patient to perform desired activities and achieve an acceptable quality of life. documented as of this encounter Visit Diagnoses Not on filedocumented in this encounter Additional Health Concerns Infection Onset Date Last Indicated Resolved Time COVID: Suspected 05/03/2021 05/03/2021 05/04/2021 3:05 AM BRAZER INDUCTION COVID: Suspected 05/03/2021 05/03/2021 05/04/2021 7:39 PM BRAZER INDUCTION COVID: Suspected 12/30/2022 12/30/2022 12/30/2022 10:47 AM CDT documented as of this encounter Care Teams Piano Technician Relationship Specialty Start Date End Date Natalia Vang DO PCP - General Family Medicine 10/09/17 10/15/23 Faith Hamm NP [address] [facility] [address] [place] [address] PCP - General Family Medicine 10/16/23 Devaughn Bazan DO Surgeon Otolaryngology 03/26/17 11/09/23 [place] [address] [address] [place] [address] Consulting Physician Endocrinology 03/29/18 [place] [address] [address] Anesthesiologist Pain Management 10/20/19 11/09/23 [place] [address] [address] Consulting Physician Nephrology 02/27/21 Thomas Ordoñez MD [address] [facility] [address] Consulting Physician Medical Oncology 05/22/21 Anne Marie Platt, [address] [address] Pharmacist Pharmacy 08/23/21 08/25/21 [place] [address] [address] Consulting Physician Endocrinology 12/15/22 11/09/23 Mendez Shine RN [address] [place] [address] [address] Head Of Cytogenetics 03/06/23 04/12/23 Joseph Mccullough MD [address] [place] [address] [address] Consulting Physician Gastroenterology 03/19/23 documented as of this encounter
--- OUTSIDE RECORDS SUMMARY | 2024-07-25 14:25 | XMS_ITS | Clinical Summary ---
Author Organization [facility] Address [address] [place] [address] Care Team Providers Care Gericare Aide Teacher Name Role Phone Unavailable Primary Care Provider Unavailabl e Source Comments [facility] [employer],non-owned Affiliates and Associated Physician Practices is amultiple site organization consisting of ambulatory clinics and hospital sitesin [place], [place], [place] and [place]. This disclosure is being madepursuant to the Care Everywhere program and may not contain all information available regarding this patient. 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 Gender Identity Not on file Sexual Orientation Not on file Plan of Treatment Health Maintenance Due Date Last Done Comments BONE DENSITY TESTING 1935 DTAP/TDAP/TD VACCINES (1 - Tdap) 1954 PNEUMOCOCCAL VACCINE 50+ (1 of 1 - PCV) 1985 ZOSTER VACCINE (1 of 2) 1985 Respiratory Syncytial Virus (RSV) Vaccine Pt: or over 60 yrs (1 - 1-dose 75+ series) 2010 COVID-19 VACCINE ( - 2023-2 5 season) 2023 DEPRESSION SCREENING 03/02/2024 INFLUENZA VACCINE (Season Ended) 2024 HEPATITIS B VACCINE Aged Out No longe r eligible based on patient's age to complete this topic HIB VACCINE Aged Out No longer eligi ble based on patient's age to complete this topic HPV VACCINE Aged Out No longer eligi ble based on patient's age to complete this topic MENINGOCOCCAL (Group B) VACC INE SHARED DECISION-MAKING Aged Out No longer eligibl e based on patient's age to complete this topic MENINGOCOCCAL GROUPS A/C/Y/W VACCINE Aged Out No longer eligible b ased on patient's age to complete this topic
--- OUTSIDE RECORDS SUMMARY | 2024-07-25 14:25 | XMS_ITS | Encounter Summary ---
Author Organization [facility] Healthcare Address [address] [place] [address] Care Team Providers Care Grey Roll Man Name Role Phone Devaughn Bazan DO Unavailable [phone] Natalia Vang DO Primary Care Provider [phone] Naun Georges MD Unavailable [phone] Frankie Bright MD Unavailable [phone] Di Demarco MD Unavailable [phone] Thomas Ordoñez MD Unavailable Anne Marie Platt [facility] Unavailable [phone] Naun Georges MD Unavailable [phone] Mendez Shine RN Unavailable [phone] Joseph Mccullough MD Unavailable [phone] Faith Hamm NP Primary Care Provider [phone] Reason for Visit * Reason Onset Date Comments Scheduling Appointments 04/04/2020 DEXA rem kacey; no answer Encounter Details Date Type Department Care Team (Late st Contact Info) Description 04/04/2020 Telephone [facility] [address] [place] [id number] Renata Wong RT Scheduling Appointments (DEXA reminder; no answer) Social History Tobacco Use Types Packs/Day Years Used Date Smoking Tobacco: Never Smokeless Tobacco: Never Alcohol Use Standard Drinks/Week Comments No 0 (1 standard drink = 0.6 oz pur e alcohol) PHQ-2 Answer Date Recorded PHQ-2 Total Score (If total score is 3 or more points, staff should administer the PHQ-9) 0 01/20/2020 Comments No Sex and Gender Information Value Date Recorded Sex Assigned at Not on file 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 Author BH-Pain Behavioral Health Improving(03/2022 12:53 PM CIRCULAR KNIFE CUTTER MACHINE) No Betty Elizabeth, CIRA Note: Patient will establish a comfort-function goal and identify the pain level that will allow the patient to perform desired activities and achieve an acceptable quality of life. documented as of this encounter Visit Diagnoses Not on filedocumented in this encounter Additional Health Concerns Infection Onset Date Last Indicated Resolved Time COVID: Suspected 07/04/2020 07/04/2020 07/04/2020 12:22 PM CDT COVID: Suspected 05/03/2021 05/03/2021 05/04/2021 3:05 AM CIRCULAR KNIFE CUTTER MACHINE COVID: Suspected 05/03/2021 05/03/2021 05/04/2021 7:39 PM CIRCULAR KNIFE CUTTER MACHINE COVID: Suspected 12/30/2022 12/30/2022 12/30/2022 10:47 AM CDT documented as of this encounter Care Teams Grey Roll Man Relationship Specialty Start Date End Date Natalia Vang DO PCP - General Family Medicine 10/09/17 10/15/23 Faith Hamm NP [address] [address] PCP - General Family Medicine 10/16/23 Devaughn Bazan DO Surgeon Otolaryngology 03/26/17 11/09/23 [place] [address] [address] [address] Consulting Physician Endocrinology 03/29/18 [place] [address] [address] [place] [id number] Anesthesiologist Pain Management 10/20/19 11/09/23 [place] [address] [address] [address] Consulting Physician Nephrology 02/27/21 Thomas Ordoñez MD [address] [facility] MED[facility] [address] Consulting Physician Medical Oncology 05/22/21 Anne Marie Platt [address] [place] [address] Pharmacist Pharmacy 08/23/21 08/25/21 [place] [address] [address] [address] Consulting Physician Endocrinology 12/15/22 11/09/23 Mendez Shine, CIRA [address] [place] [address] [address] Park Guard 03/06/23 04/12/23 Joseph Mccullough MD [address] [place] [address] [address] [place] [address] Consulting Physician Gastroenterology 03/19/23 documented as of this encounter
--- OUTSIDE RECORDS SUMMARY | 2024-07-25 14:25 | XMS_ITS | Encounter Summary ---
Author Organization [facility] Healthcare Address [address] [place] [address] Care Team Providers Care Junior Paralegal Name Role Phone Devaughn Bazan DO Unavailable [phone] Natalia Vang DO Primary Care Provider [phone] Naun Georges MD Unavailable [phone] Frankie Bright MD Unavailable [phone] Di Demarco MD Unavailable [phone] Thomas Ordoñez MD Unavailable Anne Marie Platt [facility] Unavailable [phone] Naun Georges MD Unavailable [phone] Mendez Shine RN Unavailable [phone] Joseph Mccullough MD Unavailable [phone] Faith Hamm NP Primary Care Provider [phone] Reason for Visit * Reason Onset Date Comments Scheduling Appointments 05/23/2020 Reminder call for DEXA, No answer Encounter Details Date Type Department Care Team (Late st Contact Info) Description 05/23/2020 Telephone [facility] [address] [place] [address] Kristina Pierre RT Scheduling Appointments (Reminder call for DEXA, No answer) Social History Tobacco Use Types Packs/Day [...] on file 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 Author BH-Pain Behavioral Health Improving(03/2022 12:53 PM HOLISTIC HEALTH PRACTITIONER) No Betty Elizabeth RN Note: Patient will establish a comfort-function [...] COVID: Suspected 05/03/2021 05/03/2021 05/04/2021 3:05 AM HOLISTIC HEALTH PRACTITIONER COVID: Suspected 05/03/2021 05/03/2021 05/04/2021 7:39 PM HOLISTIC HEALTH PRACTITIONER COVID: Suspected 12/30/2022 12/30/2022 12/30/2022 10:47 AM CDT documented as of this encounter Care Teams Junior Paralegal Relationship Specialty Start Date End Date Natalia Vang DO PCP - General Family Medicine 10/09/17 10/15/23 Faith Hamm NP [address] [address] PCP - General Family Medicine 10/16/23 Devaughn Bazan DO Surgeon Otolaryngology 03/26/17 11/09/23 [place] [address] [address] [address] Consulting Physician Endocrinology 03/29/18 [place] [address] [address] Anesthesiologist Pain Management 10/20/19 11/09/23 [place] [address] [address] Consulting Physician Nephrology 02/27/21 Thomas Ordoñez MD [address] [facility] MEDICAL ONCOLOGY[address] [address] Consulting Physician Medical Oncology 05/22/21 Anne Marie Platt, [address] [place] [address] Pharmacist Pharmacy 08/23/21 08/25/21 [place] [address] [address] [address] Consulting Physician Endocrinology 12/15/22 11/09/23 Mendez Shine, CIRA [address] [place] [address] [address] Rn Surgical Pcu 03/06/23 04/12/23 Joseph Mccullough MD [address] [place] [address] [address] Consulting Physician Gastroenterology 03/19/23 documented as of this encounter
--- OUTSIDE RECORDS SUMMARY | 2024-07-25 14:25 | XMS_ITS ---
Author Organization [facility] Address [address] [place] [address] Care Team Providers Care Medical Records Receptionist Name Role Phone Naun Georges MD Unavailable [phone] Di Demarco MD Unavailable [phone] Thomas Ordoñez MD Unavailable Joseph Mccullough MD Unavailable [phone] Faith Hamm NP Primary Care Provider [phone] Active Problems Problem Noted Date Diagnosed Date [...] 01/01 Assessment & Plan (01/20/2024 8:47 PM ICE SKATING COACH): Annual Medicare wellness exam completed today. All [...] 04/09/2023 Assessment & Plan (04/09/2023 4:00 PM ICE SKATING COACH): Due to patient's current condition of odontoid fracture, and the fact that she has in a neck brace, she has increased risk for balance issues and falling. Patient would benefit from home physical therapy/occupational therapy. Both of these services were ordered during patient's hospital discharge planning. Dependent edema 04/07/2023 Assessment & Plan (07/06/2024 7:00 PM CDT): Assessment & Plan (04/08/2023 10:01 AM ICE SKATING COACH): Trial of low-dose furosemide. Encouraged use of compression stocking, elevated legs above heart when possible. Follow advise of PT/OT. H/O gastrointestinal hemorrhage 03/13/2023 Right adrenal mass 02/10/2023 Assessment & Plan (02/12/2023 1:47 PM ICE SKATING COACH): #Indeterminate hypoattenuating lesion within the left inferior [...] 2022 Assessment & Plan (04/08/2023 10:00 AM ICE SKATING COACH): Slowly improving, currently in a neck brace. Keep sidney appts with specialists. Assessment & Plan (02/16/2023 12:26 PM ICE SKATING COACH): # C2 type II odontoid fracture with epidural hematoma - NSGY Spine consult (Dr. Rodriguez) - CTA head/neck - no evidence of vascular injuries - Pain control - [place] at all times - Q4H NCs [...] the cervical spine -- Continue to wear [place] brace at all times Closed fracture of spinous process of thoracic v ertebra 02/09/2023 Assessment & Plan (02/09/2023 11:52 AM ICE SKATING COACH): T4 spinous process fx - PT/OT - Pain control At risk for inadequate oral intake 02/09/2023 Assessment & Plan (02/10/2023 1:33 PM ICE SKATING COACH): - Patient reports having poor intake due to throat pain/[place] - Supplements ordered - 02/10 re-educated patient on goal of at least 1 Ensure per mealtime Other closed displaced odontoid fracture, initia l encounter 02/08/2023 Ductal carcinoma of breast, right 04/11/2021 Recurrent malignant neoplasm of right breast 11/2021 Overview (09/18/2022): Assessment: Right breast invasive ductal cancer stage I A ER positive IA positive Lumpectomy plus radiation followed by anastrozole for 5 years. Second right breast cancer, invasive ductal with lobular features-04/09/2021 Grade 1 ER positive IA positive HER2 0 Ki-67 15% Shows simple [...] 02/07/2021 Assessment & Plan (02/07/2021 10:19 AM ICE SKATING COACH): Trial of famotidine. Abnormal mammogram of right [...] PM CDT): Advise to keep following with senior control systems engineer Assessment & Plan (08/31/2020 5:39 PM CDT): [...] meds. Assessment & Plan (02/07/2021 10:17 AM ICE SKATING COACH): At baseline, cont current Rx meds. Assessment & Plan (08/31/2020 5:38 PM CDT): At baseline, cont current mgmt. Assessment & Plan (01/20/2020 12:54 PM ICE SKATING COACH): Occasional wheezing. Patient home nebulizer machine broke according to the patient. New prescription sent for another home nebulizer. Uses directed. Assessment & Plan (10/20/2019 1:46 PM CDT): Clinically improved, continue current meds. DDD (degenerative disc disease), lumbar 05/10/19 Assessment & Plan (01/20/2020 12:57 PM ICE SKATING COACH): Encouraged gwlkl-kj-[id number] exercises as tolerated. Managed by pain management. 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 Assessment & Plan (01/20/2020 12:56 PM ICE SKATING COACH): He is asymptomatic. Continue current medications. Assessment [...] flonase. Assessment & Plan (02/07/2021 10:17 AM ICE SKATING COACH): Asymptomatic. Stable. Continue current prescription medications. Assessment & Plan (01/20/2020 12:54 PM ICE SKATING COACH): Stable. Cont. Current meds. Assessment & Plan [...] ENT Assessment & Plan (01/20/2020 12:55 PM ICE SKATING COACH): Asymptomatic. Managed by ENT. Assessment & Plan (01/16/2019 1:05 PM ICE SKATING COACH): Resolved. Assessment & Plan (08/05/2017 7:58 AM [...] understanding. Assessment & Plan (01/16/2019 1:04 PM ICE SKATING COACH): Stable, cont current meds. Assessment & Plan (06/01/2017 1:30 PM CDT): She needs diagnosis of asthma, she needs outpatient pulmonary function test and follow up with first calender worker. Also recommend ENT consultation due to sinus [...] 11/26/2016 Assessment & Plan (01/20/2020 12:57 PM ICE SKATING COACH): Stable. Managed by pain specialist. Assessment & Plan (10/20/2019 1:49 PM CDT): Managed by Pain specialists. Assessment & Plan (01/16/2019 1:05 PM ICE SKATING COACH): Pain controlled. Diabetic peripheral neuropathy 11/26/2016 Assessment & Plan (11/10/2023 10:44 AM CDT): Chronic problem. Reviewed foot care; needs to lotion daily. Aware to check feet nightly, not to go barefoot. Assessment & Plan (04/07/2023 11:25 AM ICE SKATING COACH): May be contributing to her balance issues, in addition to the fact that she recently broke her neck. Patient encouraged to be careful when trying to ambulate and ask for help when needed. Assessment & Plan (09/18/2022 7:31 PM CDT): Stable. Cont. Current prescription medications, gabapentin. Managed by Pain specialists. Assessment & Plan (01/20/2020 12:55 PM ICE SKATING COACH): Asymptomatic. Managed by Endocrinology. Assessment & Plan (01/16/2019 1:06 PM ICE SKATING COACH): Clinically improved. Assessment & Plan (06/22/2018 3:50 AM CDT): Patient follows with Dr. Fonseca and receives tramadol p.r.n.. Hold tramadol at this time as patient will be receiving Norcos. OA (osteoarthritis) 11/26/2016 Assessment & Plan (01/16/2019 1:05 PM ICE SKATING COACH): On tramadol. Polymyalgia rheumatica 11/26/2016 Assessment & Plan (09/18/2022 7:31 PM CDT): Stable. Cont. Current prescription medications, Tramadol, gabapentin, managed by Pain Specialist. Assessment & Plan (01/20/2020 12:57 PM ICE SKATING COACH): Stable. Managed by pain specialist. Assessment & Plan (10/20/2019 1:48 PM CDT): Managed by pain specialists. Assessment & Plan (01/16/2019 1:06 PM ICE SKATING COACH): On tramadol. Hyperlipidemia associated with type 2 diabetes macie rosales 05/21/2016 Overview (11/26/2016): Hyperlipidemia Assessment & Plan (11/10/2023 10:17 AM CDT): Chronic problem, at goal on current Rosuvastatin 40mg. Last lipid panel: 10/16/23 LDL=58, PG=362. No changes at this time. Assessment & Plan (10/17/2023 8:00 PM CDT): Continue to limit fats in diet and take atorvastatin 80 mg daily Assessment & Plan (02/09/2023 11:41 AM ICE SKATING COACH): - Rosuvastatin Assessment & Plan (12/15/2022 11:35 AM CDT): On statin therapy Tolerating well Assessment & Plan (09/18/2022 7:23 PM CDT): LDL at goal of less than 100, continue current prescription medications, rosuvastatin. Assessment & Plan (05/05/2022 11:55 AM ICE SKATING COACH): Chronic problem, at goal on current Rosuvastatin 40mg. Last lipid panel: 09/09/21 LDL=63, JP=499. No changes at this time. Assessment & Plan (10/27/2021 5:57 PM CDT): LDL at goal of less than 100, continue current prescription medications. Assessment & Plan (09/09/2021 11:32 AM CDT): On statin therapy Tolerating well Assessment & Plan (03/25/2021 1:30 PM ICE SKATING COACH): On statin therapy Tolerating well Assessment & Plan (02/07/2021 10:17 AM ICE SKATING COACH): LDL at goal of < 70. Cont current Rx meds. Assessment & Plan (11/19/2020 3:49 PM CDT): On statin therapy Tolerating well Assessment & Plan (01/20/2020 12:53 PM ICE SKATING COACH): Elevated. Low-cholesterol diet recommended. Continue current medications. Managed by Endocrinology. Assessment & Plan (10/20/2019 1:46 PM CDT): Low chol diet recommended. Cont current mgmt. Assessment & Plan (09/12/2019 10:29 PM CDT): On statin therapy Tolerating well Assessment & Plan (09/04/2018 5:13 PM CDT): On statin therapy Tolerating well Assessment & Plan (06/22/2018 3:47 AM CDT): Continue statin Assessment & Plan (04/27/2018 7:20 AM ICE SKATING COACH): Lipid abnormalities are worsening. Nutritional counseling was provided. and Pharmacotherapy as ordered. Lipids will be reassessed in 6 months. Assessment & Plan (02/07/2018 11:18 PM ICE SKATING COACH): Pt on statin therapy Tolerating well Assessment & Plan (10/10/2017 10:42 PM CDT): Lipid abnormalities are unchanged. Nutritional counseling was provided. and Pharmacotherapy as ordered. Lipids will be reassessed in 6 months. 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 Orders: Ambulatory referral to Wound Clinic; Future Assessment & Plan (02/09/2024 8:32 PM ICE SKATING COACH): eGFR 47 on 09/17/2023. Currently on lisinopril [...] exam Assessment & Plan (02/17/2023 3:04 PM ICE SKATING COACH): - Home regimen: Novolog slide, insulin glargine [...] daughter to come to examination room from [facility]. She was not aware of which medications her mother was on either. Assessment & Plan (05/05/2022 11:56 AM ICE SKATING COACH): Chronic problem, near goal. A1c slowly trending [...] months Assessment & Plan (03/25/2021 1:46 PM ICE SKATING COACH): Chronic, uncontrolled, improving slowly A1c today 8.7% [...] meds. Assessment & Plan (01/20/2020 12:53 PM ICE SKATING COACH): Uncontrolled. Managed by endocrinology. Patient encouraged to [...] months. Assessment & Plan (01/16/2019 1:03 PM ICE SKATING COACH): Managed by endocrinology. Assessment & Plan (09/04/2018 [...] now , they plan to go to [facility] Reminded to bring in blood sugar diary at next visit. Dietary recommendations for ADA diet. Regular aerobic exercise. Discussed ways to avoid symptomatic hypoglycemia. Discussed sick day management. Discussed foot care. Reminded to get yearly retinal exam. Diabetes will be reassessed in 2 weeks . Assessment & Plan (04/27/2018 7:20 AM ICE SKATING COACH): Diabetes is improving with treatment. - HbA1c [...] weeks. Assessment & Plan (02/07/2018 11:19 PM ICE SKATING COACH): Diabetes is worsening. Recent HbA1c 12/2017 - [...] month. Assessment & Plan (01/07/2018 5:29 PM ICE SKATING COACH): Diabetes is unchanged. Discussed foot care. Reminded to get yearly retinal exam. Keep sidney appt with new Regional Company Truck Driver. Changed Levemir to Toujeo in an attempt to lower Rx costs for patient. Instructed her to take the forms for Levemir with her to her new Regional [employer] Truck Driver it Toujeo was not more affordable. Assessment & Plan (10/10/2017 10:43 PM CDT): Diabetes is unchanged. Continue current treatment regimen. Reminded to bring in blood sugar diary at next visit. Dietary recommendations for ADA diet. Diabetes will be reassessed in 6 months. Assessment & Plan (03/21/2017 1:22 AM ICE SKATING COACH): Poorly controlled type 2 diabetes insulin dependent [...] home. Assessment & Plan (05/05/2022 11:42 AM ICE SKATING COACH): Chronic problem, well controlled on current carvedilol [...] appointment. Assessment & Plan (03/25/2021 1:30 PM ICE SKATING COACH): Hypertension is improving with treatment. Continue current treatment regimen. Dietary sodium restriction. Regular aerobic exercise. Blood pressure will be reassessed at the next regular appointment. Assessment & Plan (02/07/2021 10:15 AM ICE SKATING COACH): Clinically improved, continue current prescription medications. Assessment & Plan (11/19/2020 3:49 PM CDT): Hypertension is improving with treatment. Continue current treatment regimen. Dietary sodium restriction. Regular aerobic exercise. Blood pressure will be reassessed at the next regular appointment. Assessment & Plan (08/31/2020 5:37 PM CDT): BP remains within goal, keep sidney appt with senior control systems engineer. Cont current mgmt. Assessment & Plan (10/20/2019 [...] monitor. Assessment & Plan (04/27/2018 7:20 AM ICE SKATING COACH): Hypertension is improving with treatment. Continue current treatment regimen. Dietary sodium restriction. Regular aerobic exercise. Blood pressure will be reassessed at the next regular appointment. Assessment & Plan (02/07/2018 11:18 PM ICE SKATING COACH): Hypertension is chronic, well controlled for pt [...] appointment. Assessment & Plan (03/21/2017 1:23 AM ICE SKATING COACH): Hypertension fairly controlled Will continue with home lisinopril Chronic diastolic congestive heart failure Assessment & Plan (09/18/2022 7:36 PM CDT): Patient and patient's daughter deny this condition. Reviewed most recent ECHO, results state normal left ventricular diastolic function. . Asked patient to re-establish care with cardiology. Patient is lost to follow up since her channel marketing program manager left town. Patient currently asymptomatic. Assessment & Plan (10/20/2019 1:48 PM CDT): At baseline, managed by cardiology. Nocturnal hypoxemia Esophageal dysmotilities Current Treatment and Therapy Plans No current plan information found. Past Treatment and Therapy Plans No past plan information found. Lifetime Dose Tracking * Chemical Lifetime Dose Automatic Entry Manual Entr y Fluoro Time 1.45 minutes 1.45 minutes 0 minutes Air kerma at the reference point (Ka,r) 1,548.1 mGy 0 .1 mGy 1,548 mGy DLP 1,930 mGycm 1,930 mGycm 0 mGycm Resolved Problems Problem Noted Date Diagnosed Date Resolved Date Discharge planning issues 02/09/2023 Assessment & Plan (02/17/2023 2:44 PM ICE SKATING COACH): - 02/09 pending PT/OT, c spine xrays, okay to TTF - 02/10 cspine xrays completed today, OT rec IRF, PT rec home w/ 24 hr supervision, referrals sent per CM, okay to TTF, barone removed void check pending, continue to encourage Ensure intake - 02/11- Patient is medically stable for discharge, SW/CM updated. Discharge pending facility acceptance - 02/17 discharge Class 1 obesity due to exces s calories with serious comorbidity and body mass index (BMI) of 31.0 to 31.9 in adult 05/05/2022 11/10/2023 Assessment & Plan (05/05/2022 11:08 AM ICE SKATING COACH): Discussed healthy diet and importance of regular physical activity (20- 30min/day, 150min/wk). 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 Assessment & Plan (03/25/2021 1:53 PM ICE SKATING COACH): Advised to follow up with Horse Racing Manager Pt has appt on apr 02 2021 Gave instructions for local wound care Acute hypoxemic respiratory failure 04/27/2019 10/20/2019 Acute lower respiratory tract infection 04/27/2019 07/01/2019 BMI 27.0-27.9,adult 01/14/2019 02/20/20 23 Assessment & Plan (11/18/2019 1:40 PM CDT): Healthy, low carbohydrate lifestyle and exercise Dizziness 01/14/2019 10/20/2019 Assessment & Plan (01/16/2019 1:03 PM ICE SKATING COACH): May be secondary to anti-hypertensives. Decrease lisinopril [...] tolerated tramadol and has had prescriptions for Jensen as in the past. Order patient Jensen as p.r.n.. Patient recently had a STEMI in March and is currently on aspirin and Brilinta will have to avoid NSAIDs for now. Assessment & Plan (06/21/2018 12:56 PM CDT): Acute, Worsening, Pt needs I and D and IV antibiotics Pt going to ER now ( [facility] ) Acute pain of right knee 05/04/2018 Assessment & Plan (05/04/2018 3:09 PM ICE SKATING COACH): Will obtain x-ray. Taking tylenol for pain. Asking for something stronger. Referral to Dr. Bunch, [facility] per pt request. ST elevation [...] 10/09/2017 Assessment & Plan (03/21/2017 1:26 AM ICE SKATING COACH): The patient was started on the Rocephin [...]
--- OUTSIDE RECORDS SUMMARY | 2024-07-25 14:25 | XMS_ITS | Encounter Summary ---
Author Organization [facility] Healthcare Address [address] [place] [address] Care Team Providers Care Customer Service Professional Name Role Phone Devaughn Bazan DO Unavailable [phone] Natalia Vang DO Primary Care Provider [phone] Naun Georges MD Unavailable [phone] Frankie Bright MD Unavailable [phone] Di Demarco MD Unavailable Thomas Ordoñez MD Unavailable Anne Marie Platt [facility] Unavailable [phone] Naun Georges MD Unavailable [phone] Mendez Shine RN Unavailable [phone] Joseph Mccullough MD Unavailable [phone] Faith Hamm NP Primary Care Provider [phone] Reason for Visit * Reason Onset Date Comments Scheduling Appointments 04/18/2020 Appt. re minder; no answer Encounter Details Date Type Department Care Team (Late st Contact Info) Description 04/18/2020 Telephone [facility] [address] [place] [id number] Renata Wong RT Scheduling Appointments (Appt. reminder; no answer) Social History Tobacco Use [...] on file Legal Sex Female 5:37 PM SENIOR MOBILE SOLUTIONS ARCHITECT Gender Identity Not on file Sexual Orientation Not on file documented as of this encounter Plan of Treatment Not on file documented as of this encounter Goals Goal Patient Goal Type Associated Problems Recent Progress Patient-Stated? Author [facility] Improving(03/2022 12:53 PM SENIOR MOBILE SOLUTIONS ARCHITECT) No Betty Elizabeth RN Note: Patient will [...] COVID: Suspected 05/03/2021 05/03/2021 05/04/2021 3:05 AM SENIOR MOBILE SOLUTIONS ARCHITECT COVID: Suspected 05/03/2021 05/03/2021 05/04/2021 7:39 PM SENIOR MOBILE SOLUTIONS ARCHITECT COVID: Suspected 12/30/2022 12/30/2022 12/30/2022 10:47 AM CDT documented as of this encounter Care Teams Customer Service Professional Relationship Specialty Start Date End Date Natalia Vang DO PCP - General Family Medicine 10/09/17 10/15/23 Faith Hamm NP [address] [address] PCP - General Family Medicine 10/16/23 Devaughn Bazan DO Surgeon Otolaryngology 03/26/17 11/09/23 [place] [id number] [address] Consulting Physician Endocrinology 03/29/18 [place] [address] [address] [place] [id number] Anesthesiologist Pain Management 10/20/19 11/09/23 [place] [address] [address] Consulting Physician Nephrology 02/27/21 Thomas Ordoñez MD [address] [facility] MEDICAL ONCOLOGY[address] [address] Consulting Physician Medical Oncology 05/22/21 Anne Marie Platt, [address] [place] [id number] Pharmacist Pharmacy 08/23/21 08/25/21 [place] [address] [address] [address] Consulting Physician Endocrinology 12/15/22 11/09/23 Mendez Shine, CIRA [address] [place] [address] [address] Mold Loft Worker 03/06/23 04/12/23 Joseph Mccullough MD [address] [place] [address] [facility] [address] [place] [address] Consulting Physician Gastroenterology 03/19/23 documented as of this encounter
--- OUTSIDE RECORDS SUMMARY | 2024-07-25 14:25 | XMS_ITS | Continuity of Care Document ---
[facility] Organization [facility] Address [address] [place] [address] Phone Care Team Providers Care Fondant Cooker Name Role Phone Cuauhtemoc CARPIO, Simba Unavailable Unavailable Allergies, Adverse Reactions, Alerts Substance Reaction Status Criticality penicillin G Active No Information codeine Active No Information Medications Medication Instructions Dosage Effective Dates (start - stop) Status Comments Levemir 100 unit/mL subcutaneous solution inject by subcutaneous route per prescriber's instructions. Insulin dosing requires individualization. - Active Metformin 1,000 mg Tab - Active Plaquenil 200 mg tablet - No Longer Active Procedures Procedure Date Eye Exam & Treatment Office/outpatient Visit, Est Office/outpatient Visit, Est Visual Field Examination(s) Office/outpatient Visit, Est Office/outpatient Visit, Est Visual Field Examination(s) Office/outpatient Visit, Est Eye Exam & Treatment Office/outpatient Visit, Est Eye Exam & Treatment Fundus Photography W/ Report Office/outpatient Visit, New Fundus Photography W/ Report Advance Directives Directive Yes / No Effective Date File Name No Information Encounters Encounter Description Practice Location Reason(s) For Visit Diagnoses Date Provider Providers Copied on Encounter [facility], [address], [place], [place], [address], [place] tel:[phone] SEC [place] Professional Diabetic eye exam (chief complaint) Nuclear sclerotic cataract of both eyesDry eyes, bilateralType 2 diabetes mellitus with complicationsM oderate nonproliferati ve diabetic retinopathy, without macular edema, associated with type 2 diabetes mellitus Dec-2 2- 5 Kerwinkayla Cottrell. [address] [facility] [facility] [address], [place], [place], [address], [place]. tel:[phone] Office/outpa tient Visit, [facility], [id number] [place] [address] [address], [place], [place], [address], [place] tel:[phone] SEC [place] Professional F/u exam, Plaquenil therapy (chief complaint) Therapeutic Drug MonitoringSENI LE NUCLEAR CATARACTDiabet es (high blood sugar disease) affecting the eyeDiabetic retinopathy Apr-0 6201 5 Mariam Almodovar. [address] [facility], [address], [address], [place]. tel:[phone] Referring Provider: Simba Villarreal, [address] [facility] [address], [place], [address] . tel:[phone] Office/outpa tient Visit, [facility], [address], [place], [place], [address], [place] tel:[phone] SEC [place] Professional F/u exam, Plaquenil therapy (chief complaint) Therapeutic Drug MonitoringDiab etes (high blood sugar disease) affecting the eyeDiabetic retinopathySEN ILE NUCLEAR CATARACT Oct-0 4 Cuauhtemoc Cottrell. [address] [facility], [place], [place], [address], [place]. tel:[phone] Referring Provider: Simba Villarreal [address] [facility] [address], [place], [address] . tel:[phone] Office/outpa tient Visit, [facility], [address], [place], [place], [address], [place] tel:[phone] [facility] [place] RADHA Professional Diabetes Mellitus Type 2, UncomplicatedS ENILE NUCLEAR CATARACTTherap eutic Drug Monitoring May-0 4-201 4 Cuauhtemoc Cottrell. [address], [address] [place], [address], [place]. tel:[phone] Office/outpa tient Visit, [facility], [address], [place], [place], [address], [place] tel:[phone] SEC Tamir RADHA Professional Therapeutic Drug MonitoringSENI LE NUCLEAR CATARACTHORDEO LUM INTERNUMDiabet es Mellitus Type 2, Uncomplicated Sep- 3-201 3 Cuauhtemoc Cottrell. [address] [facility], [facility] [place], [address], [place]. tel:[phone] Referring Provider: Simba Villarreal, [address] [place], [address] . tel:[phone] Office/outpa tient Visit, [facility], [address], [place], [place], [address], [place] [phone] [facility] RADHA Professional CHALAZION Apr- 3 Mariam Almodovar. [address] [facility], [address], [place], [address], [place]. tel:[phone] [facility], [address], [place], [place], [address], [place] tel:[phone] SEC [place] RADHA Professional No Information Fe- 3 Cuauhtemoc Cottrell. [address] [facility], [facility] [place], [address], [place]. tel:[phone] Referring Provider: Simba Villarreal, [address] [place], [address] . tel:[phone] Office/outpa tient Visit, [facility], [address], [place], [place], [address], [phone] SEC [place] RADHA Professional BLEPHAROCONJUN CTIVIT NOS 8-201 2 Cuauhtemoc Cottrell. [address] [facility], [facility] [address], [place], [place], [address], [place]. tel:[phone] [facility], [address], [place], [place], [address], tel:[phone] SEC Tamir GARCIA Professional No Information 8 Isaac Kim. [facility] [address], [address], [place], [place], [address], . tel:[phone] Referring Provider: Simba Villarreal, [address] [facility] [facility] [address], [place], [address] . tel:[phone] Office/outpa tient Visit, [facility] [employer] [facility], [address], [place], [place], [address], [place] [phone] SEC Tamir GARCIA Professional No Information 7 Isaac Kim. [facility] [address], [address], [place], [place], [address], [place]. tel:[phone] Referring Provider: Julio Villarreal, [facility] [address], [place], [address] . tel:[phone] Family History Family Member Type Diagnosis Age At Onset No Information Payers Payer name Insurance type Covered constitution party ID Max sommerlesvia(s) Oswaldo ([employer], Gold Advantage) [place] [id number] Social History Type Description Quantity Date Captured Comments Alcohol Use Details No Caffeine Use Details No Tobacco Use Status No Information Smoking Status Never smoker Sex Female Chief Complaint And Reason For Visit From encounter dated '02/20/2015 13:00'. Diabetic eye exam (chief complaint). Description: The 79 year old female presents for a complete Type II insulin dependent diabetic exam. BS was 135 this am. Patient states no longer takes Plaquenil.Patient denies any changes in vision. Reason For Referral Reason For Referral No Information History Of Present Illness Encounter Date Complaint History Of Prese nt Illness Diabetic eye exam The 79 year ol d female presents for a complete Type II insulin dependent diabetic exam. BS was 135 this am. Patient states no longer takes Plaquenil. Patient denies any changes in vision. F/u exam, Plaquenil therapy The 79 year old female presents for F/u exam, Plaquenil therapy and diabetic check. Patient states that v/a is the same as last time. Patient denies any pain or discomfort. Patient checked BS this am it was 196. F/u exam, Plaquenil therapy Taisha net presents for a 6 month plaquenil and diabetes check. Patient states eyes get tired. BS runs up and down per patient. Functional Status Date Functional Assessmen t No Information Instructions Date Instruction Additional Infor abilio Impression/Plan - Di scussed dry eyes continue artificial tears prn for comfort. Cataracts discussed, will continue to monitor. Diabetes type II: moderate background diabetic retinopathy, will refer patient for a retinal consult to determine if treatment is necessary. Discussed ocular and systemic benefits of maintaining blood sugar control. DM letter to Dr Toscano. Return to clinic when released by Retina. Follow up - refer to retina specialist Therapeutic Drug Mon itoring - Educational material given Related to Therapeutic Drug Monitoring - Diabetes, mild ann kground diabetic retinopathy, no signs of neovascularization noted. No treatment necessary at this time. Patient was instructed to monitor vision for sudden changes and to call if visual changes noted. Discussed ocular and systemic benefits of blood sugar control. No signs of hydroxychloroquine toxicity, OK to continue medication. Return in 1 year for complete exam with OCT mac and 24-2 or sooner with problems. Related to See list of assessments above - Return in 6 months with Simba Posadas M.D. for Complete Exam with OCT of macula & 24-2 Related to See list of assessments above - No signs of hydrox ychloroquine toxicity, OK to continue medication. Diabetes: mild background diabetic retinopathy. No treatmentfor cataracts required at this time. Patient was instructed to monitor vision for sudden changes. RTC in 6 months for a plaquenil check. Educational materials provided:about today's exam. Related to See list of assessments above - RTC in 6 months fo r a plaquenil check Related to See list of assessments above plaquinil-no toxicity - observat ion Related to Therapeutic Drug Monitoring - 6mths- 10-2 vf and dilate Rela morelia to Therapeutic Drug Monitoring mod nsc - pt states vis ok Relat ed to SENILE NUCLEAR CATARACT mild loading machine adjuster-rare dot he mm - observation Educational materials provided to patient. Related to Diabetes Mellitus Type 2, Uncomplicated - 6mths Related to Diabe erlin Mellitus Type 2, Uncomplicated no loading machine adjuster - reevaluate in 6mths when in for repeat paquenil check Related to Diabetes Type II - 6mths-dilate Related to Plaqu aviva Therapy Evaluation baseline plaquenil exam - observ ation Related to Plaquneil Therapy Evaluation nsc ou - no tx needed at present Related to Cataract, Nuclear Sclerosis - prn Related to Meibo mitis MGD - HMP prn Related to Meibo mitis - 6mths Related to Diabe erlin Type II - PRN Related to Chala figueroa Chalazion, LLL - vis ion not affected - will continue to monitor - Discussed dx with pt. Discussed that stye is causing thickening, no draining neccessary. Pt understands that punctum is close to stye, signs and symptoms of drainage system infection reviewed. Recommends warm compress. Discussed lancing option if does not resolve spontaneously. Might spontaneously drain, if head and no drainage return to clinic to drain. Start Tobra/dex TID-QID use for 7 days. Pt to return to clinic if symptoms persist past 7-10 days or worsen. Related to Chalazion no loading machine adjuster - DM letter - 1yr cataracts - states vis seems ok MGD - HMP and AThumidifier - Will sched complete Related to BLEPHAROCONJUNCTIVIT NOS BLEPHAROCONJUNCTIVIT NOS, OU - vision not affected - will continue to monitor - Discussed dx with pt. Start Tobra/ dex QID for 5 days then BID for 5 days. Recommends warm compresses. Related to BLEPHAROCONJUNCTIVIT NOS Assessments Type Assessment Date assessment Nuclear sclerotic cataract of ping th eyes assessment Dry eyes, bilateral assessment Type 2 diabetes mellitus with co mplications assessment Moderate nonprolifer ative diabetic retinopathy, without macular edema, associated with type 2 diabetes mellitus Patient Care Teams Name Effective Dates (start - stop) Status Members No Information
--- OUTSIDE RECORDS SUMMARY | 2024-07-25 14:25 | XMS_ITS | Clinical Summary ---
Author Organization [facility] Facility Address [address] [place] [address] Care Team Providers Care Senior Biostatistician Name Role Phone Natalia Vang Primary Care Provider [phone] Allergies Active Allergy Reactions Criticality Noted Date Comments Codeine Other (see comments) Medium 10/02/2020 Penicillins Rash Medium 10/02/2020 Medications albuterol HFA (PROVENTIL HFA;VENTOLIN HFA) 108 (90 Base) MCG/ACT inhaler Inhale 2 puffs every 4 (four) hours if needed 1 Active aspirin (ST SHERLY) 81 MG EC tablet Take 81 mg by mouth daily 9 Active Calcium 500-125 MG-UNIT tablet 7 Active carvedilol (COREG) 6.25 MG tablet Take 1 tablet by mouth 2 (two) times a day 1 Active fluticasone (FLONASE) 50 MCG/ACT nasal spray Administer 1 spray into affected nostril(s) daily 0 Active insulin aspart (NovoLOG) 100 UNIT/ML injection Inject 8-14 units under skin 3 times a day with meals 0 Active Insulin Glargine, 1 Unit Dial, (Priscilla Knowlesar) 300 UNIT/ML solution pen-injector INJECT 30 UNITS UNDER THE SKIN DAILY 1 Active lisinopril 2.5 MG tablet Take 1 tablet by mouth 1 (one) time each day 1 Active loratadine (CLARITIN) 10 MG tablet Take 10 mg by mouth daily 0 Active rosuvastatin (CRESTOR) 40 MG tablet Take 1 tablet by mouth 1 (one) time each day 1 Active Semaglutide,0.2 5 or 0.5MG/DOS, (Ozempic, 0.25 or 0.5 MG/DOSE,) 2 MG/1.5ML solution pen-injector Inject 0.5 mg under the skin per week 0 Active alpha tocopherol (VITAMIN E) 1000 units capsule Take 1,000 Units by mouth daily Active Insulin Aspart, w/Niacinamide, 100 UNIT/ML solution pen-injector Inject 5-6 Units under the skin 3 (three) times a day with meals Active albuterol 1.25 MG/3ML nebulizer solution Take 1.25 mg by nebulization every 6 (six) hours if needed for wheezing Active azelastine (ASTELIN) 0.1 % nasal spray Administer 1 spray into each nostril 2 (two) times a day Use in each nostril as directed Active DOCOSAHEXAENOIC ACID PO Take by mouth Active traMADol (ULTRAM) 50 MG tablet Take 50 mg by mouth 2 (two) times a day if needed for moderate pain Active Active Problems Problem Noted Date Diagnosed Date Chronic diastolic congestive heart failure 10/02 Overview (10/02/2020): Last Assessment & Plan: At baseline, managed by cardiology. Hypoxia 10/02/2020 Stage 3b chronic kidney disease 08/30/2020 Overview (10/02/2020): Last Assessment & Plan: Increase water intake. Has upcoming appt with nephrology soon, keep sidney appt. Cont current meds. Coronary atherosclerosis 06/22/2018 Overview (10/02/2020): Last Assessment & Plan: He is asymptomatic. Continue current medications. Diabetic peripheral neuropathy 11/26/2016 Overview (10/02/2020): Last Assessment & Plan: Asymptomatic. Managed by Endocrinology. Fibromyalgia 11/26/2016 Overview (10/02/2020): Last Assessment & Plan: Stable. Managed by pain specialist. Dyslipidemia 05/21/2016 Overview (10/02/2020): Hyperlipidemia Last Assessment & Plan: Elevated. Low-cholesterol diet recommended. Continue current medications. Managed by Endocrinology. Hypertensive disorder 05/21/2016 Overview (10/02/2020): Hypertension Last Assessment & Plan: BP remains within goal, keep sidney appt with horticulture instructor. Cont current mgmt. Type 2 diabetes mellitus 05/21/2016 Overview (10/02/2020): Managed by Endocrinology Last Assessment & Plan: A1c uncontrolled, followed by endocrinology. Encouraged low carbs/no sugar diet. Cont current meds. Immunizations Immunization Administration Dates Next Due Influenza Split High Dose Pr eservative Free IM 01/14/2019,01/07/2018,01/23/2016 Influenza TIV (IM) 12/31/2014,01/30/2014, 014 Influenza, Quadrivalent, Preservative Free 01/21,04/02/2016,12/14/2014 Influenza, Recombinant, Quadrivalent, Pf 020 Pneumococcal Conjugate 13-Valent 04/14/2017 Pneumococcal Polysaccharide 03/02/2006 Td 03/02/2005 Tdap 04/14/2017 Zoster 03/02/2010 Family History Medical History Relation Comments Cancer Sibling Diabetes Sibling Relation Status Comments Sibling Social History Tobacco Use Types Packs/Day Years Used Date Smoking Tobacco: Never Alcohol Use Standard Drinks/Week Comments Never 0 (1 standard drink = 0.6 oz pur e alcohol) Comments Unknown Sex and Gender Information Value Date Recorded Sex Assigned at Not on file Legal Sex Female 1:57 PM EDT Gender Identity Not on file Sexual Orientation Not on file Last Filed Vital Signs Vital Sign Reading Time Taken Comments Blood Pressure 122/80 02/01/2021 11:40 AM MANAGEMENT MANAGER Pulse 68 02/01/2021 11:40 AM MANAGEMENT MANAGER Temperature 36.3 C (97.3 F) 02/01/2021 11:40 AM MANAGEMENT MANAGER Respiratory Rate 19 10/03/2020 1:56 PM CDT Oxygen Saturation 97% 02/01/2021 11:40 AM MANAGEMENT MANAGER Inhaled Oxygen Concentration - - Weight 68.3 kg (150 lb 8 oz) 02/01/2021 11:40 AM MANAGEMENT MANAGER Height 162.6 cm (5' 4) 02/01/2021 11:40 AM MANAGEMENT MANAGER Body Mass Index 25.83 02/01/2021 11:40 AM MANAGEMENT MANAGER Plan of Treatment Health Maintenance Due Date Last Done Comments Diabetes: Ophthalmology Exam 08/29/2020 Diabetes: Pedal Pulse Checked 08/29/2020 Diabetes: Sensory Foot Exam 08/29/2020 Diabetes: Visual Foot Exam 08/29/2020 Diabetes: Hemoglobin A1C 02/26/2021 021, 11/19/2020, 08/23/2020 Influenza Vaccine (Season Ended) 2024 12/21/2019, 01/14/2019, 01/07/2018, Additional history exists Pneumococcal Vaccine: 50+ Years Completed 04/14/2017, 03/02/2006 Hepatitis B Vaccine Aged Out No longe r eligible based on patient's age to complete this topic Insurance [facility] Care Teams Senior Biostatistician Relationship Specialty Start Date End Date Natalia Vang DO [address] [place] [address] PCP - General Internal Medicine 08/29/20
--- NOTE | 2024-07-25 15:06 | ECG_ITS ---
Test Date: 2024-07-25 16:53:24 Measurements Intervals [place] Rate: 70 P: 34 VT: 198 QRS: 108 QRSD: 145 T: -29 QT: 408 QTc: 441 Interpretive Statements SINUS RHYTHM WITH OCCASIONAL VENTRICULAR PREMATURE COMPLEXES INDETERMINATE AXIS RIGHT BUNDLE BRANCH BLOCK [120+ ms QRS DURATION, UPRIGHT V1, 40+ ms S IN I/aVL/V4/V5/V6] POSSIBLE ANTERIOR MYOCARDIAL INFARCTION , OF INDETERMINATE AGE [30 ms Q WAVE IN V3/V4, OR R < 0.2 mV IN V4] MODERATE T-WAVE ABNORMALITY, CONSIDER LATERAL ISCHEMIA [-0.1+ mV T WAVE IN I/aVL/V5/V6] MODERATE T-WAVE ABNORMALITY, CONSIDER INFERIOR ISCHEMIA [-0.1+ mV T WAVE IN II/aVF] No previous ECG available for comparison Electronically Signed On 07-25-2024 20:35:25 CDT by Hamzah Melchor M.D.
--- OUTSIDE RECORDS SUMMARY | 2024-07-25 15:06 | XMS_ITS | Referral Summary ---
Author Organization [facility] Address [address] [place] [address] Care Team Providers Care Wound Care Coordinator Name Role Phone Naun Georges MD Unavailable [phone] Di Demarco MD Unavailable Thomas Ordoñez MD Unavailable Joseph Mccullough MD Unavailable [phone] Faith Hamm NP Primary Care Provider [phone] Encounters Date Type Department Care Team Description 07/20/2024 9:00 AM CDT Orders Only [facility] [address] [place] [id number] 07/13/2024 8:00 AM CDT Orders Only [facility] [address] [place] [address] Cellulitis of right lower extremity; Venous stasis ulcer of right calf limited to breakdown of skin without varicose veins (HCC); Type 2 diabetes mellitus with stage 3a chronic kidney disease, with long-term current use of insulin (HCC) 07/12/2024 3:19 PM CDT - 07/12/2024 11:59 PM CDT Hospital Encounter [facility] [address] [facility] [address], [address] [place] [address] Thomas Washington MD Degeneration of intervertebral disc of lumbar region, unspecified whether pain present; Diabetic peripheral neuropathy (HCC) Discharge Disposition: Discharge to home or self care 07/06/2024 10:30 AM CDT Office Visit [facility] at [address] [place] [phone] Faith Hamm NP Cellulitis of right lower extremity (Primary Dx); Dependent edema; Venous stasis ulcer of right calf limited to breakdown of skin without varicose veins (HCC); Type 2 diabetes mellitus with stage 3a chronic kidney disease, with long-term current use of insulin ([facility]) 07/04/2024 Nurse Triage [facility] at [address] [phone] Faith Hamm NP 07/04/2024 10:15 AM CDT Office Visit [facility] [place] [address] [place] [address] Ronel Leung NP Leg swelling (Primary Dx); Dependent edema; Cellulitis of right lower extremity 06/20/2024 Telephone [facility] [address] [place] [address] A, [facility]. [address] [place] [address] Shameka Ray NP from Last [...] hyperglycemia, with long-term current use of insulin ([facility]) TEST BLOOD SUGAR FOUR TIMES DAILY 300 [...] hyperglycemia, with long-term current use of insulin ([facility]) Use to inject 4 times daily as [...] disease, with long-term current use of insulin ([facility]) Take 1 tablet (2.5 mg total) by [...] 01/01 Assessment & Plan (01/20/2024 8:47 PM SEED PELLETER): Annual Medicare wellness exam completed today. All [...] 04/09/2023 Assessment & Plan (04/09/2023 4:00 PM SEED PELLETER): Due to patient's current condition of odontoid fracture, and the fact that she has in a neck brace, she has increased risk for balance issues and falling. Patient would benefit from home physical therapy/occupational therapy. Both of these services were ordered during patient's hospital discharge planning. Dependent edema 04/07/2023 Assessment & Plan (07/06/2024 7:00 PM CDT): Assessment & Plan (04/08/2023 10:01 AM SEED PELLETER): Trial of low-dose furosemide. Encouraged use of compression stocking, elevated legs above heart when possible. Follow advise of PT/OT. H/O gastrointestinal hemorrhage 03/13/2023 Right adrenal mass 02/10/2023 Assessment & Plan (02/12/2023 1:47 PM SEED PELLETER): #Indeterminate hypoattenuating lesion within the left inferior [...] 2022 Assessment & Plan (04/08/2023 10:00 AM SEED PELLETER): Slowly improving, currently in a neck brace. Keep sidney appts with specialists. Assessment & Plan (02/16/2023 12:26 PM SEED PELLETER): # C2 type II odontoid fracture with epidural hematoma - NSGY Spine consult (Dr. Rodriguez) - CTA head/neck - no evidence of vascular injuries - Pain control - [place] J at all times - Q4H NCs [...] the cervical spine -- Continue to wear [place] J brace at all times Closed fracture of spinous process of thoracic v ertebra 02/09/2023 Assessment & Plan (02/09/2023 11:52 AM SEED PELLETER): T4 spinous process fx - PT/OT - Pain control At risk for inadequate oral intake 02/09/2023 Assessment & Plan (02/10/2023 1:33 PM SEED PELLETER): - Patient reports having poor intake due to throat pain/[place] J - Supplements ordered - 02/10 re-educated patient on goal of at least 1 Ensure per mealtime Other closed displaced odontoid fracture, initia l encounter 02/08/2023 Ductal carcinoma of breast, right 04/11/2021 Recurrent malignant neoplasm of right breast 11/2021 Overview (09/18/2022): Assessment: 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 Second right breast cancer, invasive ductal with lobular features-04/09/2021 Grade 1 ER positive AL positive HER2 0 Ki-67 15% Shows simple [...] 02/07/2021 Assessment & Plan (02/07/2021 10:19 AM SEED PELLETER): Trial of famotidine. Abnormal mammogram of right [...] PM CDT): Advise to keep following with towel cabinet repairer Assessment & Plan (08/31/2020 5:39 PM CDT): [...] meds. Assessment & Plan (02/07/2021 10:17 AM SEED PELLETER): At baseline, cont current Rx meds. Assessment & Plan (08/31/2020 5:38 PM CDT): At baseline, cont current mgmt. Assessment & Plan (01/20/2020 12:54 PM SEED PELLETER): Occasional wheezing. Patient home nebulizer machine broke according to the patient. New prescription sent for another home nebulizer. Uses directed. Assessment & Plan (10/20/2019 1:46 PM CDT): Clinically improved, continue current meds. DDD (degenerative disc disease), lumbar 05/10/19 Assessment & Plan (01/20/2020 12:57 PM SEED PELLETER): Encouraged vhgxk-bc-ykqdwz exercises as tolerated. Managed by pain management. 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 Assessment & Plan (01/20/2020 12:56 PM SEED PELLETER): He is asymptomatic. Continue current medications. Assessment [...] flonase. Assessment & Plan (02/07/2021 10:17 AM SEED PELLETER): Asymptomatic. Stable. Continue current prescription medications. Assessment & Plan (01/20/2020 12:54 PM SEED PELLETER): Stable. Cont. Current meds. Assessment & Plan [...] ENT Assessment & Plan (01/20/2020 12:55 PM SEED PELLETER): Asymptomatic. Managed by ENT. Assessment & Plan (01/16/2019 1:05 PM SEED PELLETER): Resolved. Assessment & Plan (08/05/2017 7:58 AM [...] understanding. Assessment & Plan (01/16/2019 1:04 PM SEED PELLETER): Stable, cont current meds. Assessment & Plan (06/01/2017 1:30 PM CDT): She needs diagnosis of asthma, she needs outpatient pulmonary function test and follow up with clinical research associate. Also recommend ENT consultation due to sinus [...] 11/26/2016 Assessment & Plan (01/20/2020 12:57 PM SEED PELLETER): Stable. Managed by pain specialist. Assessment & Plan (10/20/2019 1:49 PM CDT): Managed by Pain specialists. Assessment & Plan (01/16/2019 1:05 PM SEED PELLETER): Pain controlled. Diabetic peripheral neuropathy 11/26/2016 Assessment & Plan (11/10/2023 10:44 AM CDT): Chronic problem. Reviewed foot care; needs to lotion daily. Aware to check feet nightly, not to go barefoot. Assessment & Plan (04/07/2023 11:25 AM SEED PELLETER): May be contributing to her balance issues, in addition to the fact that she recently broke her neck. Patient encouraged to be careful when trying to ambulate and ask for help when needed. Assessment & Plan (09/18/2022 7:31 PM CDT): Stable. Cont. Current prescription medications, gabapentin. Managed by Pain specialists. Assessment & Plan (01/20/2020 12:55 PM SEED PELLETER): Asymptomatic. Managed by Endocrinology. Assessment & Plan (01/16/2019 1:06 PM SEED PELLETER): Clinically improved. Assessment & Plan (06/22/2018 3:50 AM CDT): Patient follows with Dr. Fonseca and receives tramadol p.r.n.. Hold tramadol at this time as patient will be receiving Norcos. OA (osteoarthritis) 11/26/2016 Assessment & Plan (01/16/2019 1:05 PM SEED PELLETER): On tramadol. Polymyalgia rheumatica 11/26/2016 Assessment & Plan (09/18/2022 7:31 PM CDT): Stable. Cont. Current prescription medications, Tramadol, gabapentin, managed by Pain Specialist. Assessment & Plan (01/20/2020 12:57 PM SEED PELLETER): Stable. Managed by pain specialist. Assessment & Plan (10/20/2019 1:48 PM CDT): Managed by pain specialists. Assessment & Plan (01/16/2019 1:06 PM SEED PELLETER): On tramadol. Hyperlipidemia associated with type 2 diabetes macie elsiedilip 05/21/2016 Overview (11/26/2016): Hyperlipidemia Assessment & Plan (11/10/2023 10:17 AM CDT): Chronic problem, at goal on current Rosuvastatin 40mg. Last lipid panel: 10/16/23 LDL=58, UM=331. No changes at this time. Assessment & Plan (10/17/2023 8:00 PM CDT): Continue to limit fats in diet and take atorvastatin 80 mg daily Assessment & Plan (02/09/2023 11:41 AM SEED PELLETER): - Rosuvastatin Assessment & Plan (12/15/2022 11:35 AM CDT): On statin therapy Tolerating well Assessment & Plan (09/18/2022 7:23 PM CDT): LDL at goal of less than 100, continue current prescription medications, rosuvastatin. Assessment & Plan (05/05/2022 11:55 AM SEED PELLETER): Chronic problem, at goal on current Rosuvastatin 40mg. Last lipid panel: 09/09/21 LDL=63, GS=925. No changes at this time. Assessment & Plan (10/27/2021 5:57 PM CDT): LDL at goal of less than 100, continue current prescription medications. Assessment & Plan (09/09/2021 11:32 AM CDT): On statin therapy Tolerating well Assessment & Plan (03/25/2021 1:30 PM SEED PELLETER): On statin therapy Tolerating well Assessment & Plan (02/07/2021 10:17 AM SEED PELLETER): LDL at goal of < 70. Cont current Rx meds. Assessment & Plan (11/19/2020 3:49 PM CDT): On statin therapy Tolerating well Assessment & Plan (01/20/2020 12:53 PM SEED PELLETER): Elevated. Low-cholesterol diet recommended. Continue current medications. Managed by Endocrinology. Assessment & Plan (10/20/2019 1:46 PM CDT): Low chol diet recommended. Cont current mgmt. Assessment & Plan (09/12/2019 10:29 PM CDT): On statin therapy Tolerating well Assessment & Plan (09/04/2018 5:13 PM CDT): On statin therapy Tolerating well Assessment & Plan (06/22/2018 3:47 AM CDT): Continue statin Assessment & Plan (04/27/2018 7:20 AM SEED PELLETER): Lipid abnormalities are worsening. Nutritional counseling was provided. and Pharmacotherapy as ordered. Lipids will be reassessed in 6 months. Assessment & Plan (02/07/2018 11:18 PM SEED PELLETER): Pt on statin therapy Tolerating well Assessment & Plan (10/10/2017 10:42 PM CDT): Lipid abnormalities are unchanged. Nutritional counseling was provided. and Pharmacotherapy as ordered. Lipids will be reassessed in 6 months. Assessment & Plan (03/21/2017 1:22 AM SEED PELLETER): Currently on aspirin and statin will continue with home medications Type 2 diabetes mellitus wit h stage 3a chronic kidney disease, with long-term current use of insulin 05/21/2016 Overview (10/09/2017): Managed by Endocrinology Assessment & Plan (07/06/2024 7:00 PM CDT): Monitor blood glucose more frequently and scheduled follow-up with Endocrinology. Orders: Ambulatory referral to Wound Clinic; Future Assessment & Plan (02/09/2024 8:32 PM SEED PELLETER): eGFR 47 on 09/17/2023. Currently on lisinopril [...] exam Assessment & Plan (02/17/2023 3:04 PM SEED PELLETER): - Home regimen: Novolog slide, insulin glargine [...] daughter to come to examination room from [facility]. She was not aware of which medications her mother was on either. Assessment & Plan (05/05/2022 11:56 AM SEED PELLETER): Chronic problem, near goal. A1c slowly trending [...] months Assessment & Plan (03/25/2021 1:46 PM SEED PELLETER): Chronic, uncontrolled, improving slowly A1c today 8.7% [...] meds. Assessment & Plan (01/20/2020 12:53 PM SEED PELLETER): Uncontrolled. Managed by endocrinology. Patient encouraged to [...] months. Assessment & Plan (01/16/2019 1:03 PM SEED PELLETER): Managed by endocrinology. Assessment & Plan (09/04/2018 [...] now , they plan to go to [facility] Reminded to bring in blood sugar diary at next visit. Dietary recommendations for ADA diet. Regular aerobic exercise. Discussed ways to avoid symptomatic hypoglycemia. Discussed sick day management. Discussed foot care. Reminded to get yearly retinal exam. Diabetes will be reassessed in 2 weeks . Assessment & Plan (04/27/2018 7:20 AM SEED PELLETER): Diabetes is improving with treatment. - HbA1c [...] weeks. Assessment & Plan (02/07/2018 11:19 PM SEED PELLETER): Diabetes is worsening. Recent HbA1c 12/2017 - [...] month. Assessment & Plan (01/07/2018 5:29 PM SEED PELLETER): Diabetes is unchanged. Discussed foot care. Reminded to get yearly retinal exam. Keep sidney appt with new Religious Studies Professor. Changed Levemir to Toujeo in an attempt to lower Rx costs for patient. Instructed her to take the forms for Levemir with her to her new Religious Studies Professor it Toujeo was not more affordable. Assessment & Plan (10/10/2017 10:43 PM CDT): Diabetes is unchanged. Continue current treatment regimen. Reminded to bring in blood sugar diary at next visit. Dietary recommendations for ADA diet. Diabetes will be reassessed in 6 months. Assessment & Plan (03/21/2017 1:22 AM SEED PELLETER): Poorly controlled type 2 diabetes insulin dependent [...] home. Assessment & Plan (05/05/2022 11:42 AM SEED PELLETER): Chronic problem, well controlled on current carvedilol [...] appointment. Assessment & Plan (03/25/2021 1:30 PM SEED PELLETER): Hypertension is improving with treatment. Continue current treatment regimen. Dietary sodium restriction. Regular aerobic exercise. Blood pressure will be reassessed at the next regular appointment. Assessment & Plan (02/07/2021 10:15 AM SEED PELLETER): Clinically improved, continue current prescription medications. Assessment & Plan (11/19/2020 3:49 PM CDT): Hypertension is improving with treatment. Continue current treatment regimen. Dietary sodium restriction. Regular aerobic exercise. Blood pressure will be reassessed at the next regular appointment. Assessment & Plan (08/31/2020 5:37 PM CDT): BP remains within goal, keep sidney appt with towel cabinet repairer. Cont current mgmt. Assessment & Plan (10/20/2019 [...] monitor. Assessment & Plan (04/27/2018 7:20 AM SEED PELLETER): Hypertension is improving with treatment. Continue current treatment regimen. Dietary sodium restriction. Regular aerobic exercise. Blood pressure will be reassessed at the next regular appointment. Assessment & Plan (02/07/2018 11:18 PM SEED PELLETER): Hypertension is chronic, well controlled for pt [...] appointment. Assessment & Plan (03/21/2017 1:23 AM SEED PELLETER): Hypertension fairly controlled Will continue with home lisinopril Chronic diastolic congestive heart failure Assessment & Plan (09/18/2022 7:36 PM CDT): Patient and patient's daughter deny this condition. Reviewed most recent ECHO, results state normal left ventricular diastolic function. . Asked patient to re-establish care with cardiology. Patient is lost to follow up since her dispensing optician apprentice left town. Patient currently asymptomatic. Assessment & Plan (10/20/2019 1:48 PM CDT): At baseline, managed by cardiology. Nocturnal hypoxemia Esophageal dysmotilities Resolved Problems Problem Noted Date Diagnosed Date Resolved Date Discharge planning issues 02/09/2023 Assessment & Plan (02/17/2023 2:44 PM SEED PELLETER): - 02/09 pending PT/OT, c spine xrays, [...] 11/10/2023 Assessment & Plan (05/05/2022 11:08 AM SEED PELLETER): Discussed healthy diet and importance of regular physical activity (20- 30min/day, 150min/wk). 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 Assessment & Plan (03/25/2021 1:53 PM SEED PELLETER): Advised to follow up with [employer] Operator Pt has appt on apr 02 2021 Gave instructions for local wound care Acute hypoxemic respiratory failure 04/27/2019 10/20/2019 Acute lower respiratory tract infection 04/27/2019 07/01/2019 BMI 27.0-27.9,adult 01/14/2019 04/21/19 23 Assessment & Plan (11/18/2019 1:40 PM CDT): Healthy, low carbohydrate lifestyle and exercise Dizziness 01/14/2019 10/20/2019 Assessment & Plan (01/16/2019 1:03 PM SEED PELLETER): May be secondary to anti-hypertensives. Decrease lisinopril [...] tolerated tramadol and has had prescriptions for [place] as in the past. Order patient [place] as p.r.n.. Patient recently had a STEMI in March and is currently on aspirin and Brilinta will have to avoid NSAIDs for now. Assessment & Plan (06/21/2018 12:56 PM CDT): Acute, Worsening, Pt needs I and D and IV antibiotics Pt going to ER now ( [facility] ) Acute pain of right knee 05/04/2018 Assessment & Plan (05/04/2018 3:09 PM SEED PELLETER): Will obtain x-ray. Taking tylenol for pain. Asking for something stronger. Referral to Dr. Bunch, [facility] per pt request. ST elevation myocardial infa [...] 10/09/2017 Assessment & Plan (03/21/2017 1:26 AM SEED PELLETER): The patient was started on the Rocephin [...] materials from doctor or pharmacy Never 03/11/2023 [facility] Utilities Answer Date Recorded In the past 12 months has e [employer], gas, oil, or water [employer] threatened to shut off services in your [...] often do you attend chur ch or latter-day services? More than 4 times per year 04/13/2023 Do you belong to any clubs o r organizations such as zoroastrian groups, unions, fraternal or athletic groups, or [...] place to sleep or slept in a group home (including now)? No 04/13/2023 PHQ-9 Answer Date [...] on file Legal Sex Female 5:37 PM SEED PELLETER Gender Identity Not on file Sexual Orientation [...] Author [facility] Improving(03/2022 12:53 PM SEED PELLETER) No Betty Elizabeth, RN Note: Patient will establish a comfort-function goal and identify the pain level that will allow the patient to perform desired activities and achieve an acceptable quality of life. Medical Devices Implanted Type Area High School Math Tutor Device Identifier Shelf Expiration Date Model / Serial / Lot Bard Peripheral Vascular [id number] Ultraclip Bard 17ga 10cm 2 Trigger Permanent Ultrasound - [id number] - [id number] Implanted:Qty: 1 on 04/09/2021 by Thomas Davila MD at [facility] Breast Right: Breast [employer] 09/27/2023 [id number] / [id number] / [employer] [id number] Xience Bree 3mm 18mm Rapid Exchange System Coronary Stent - [id number] Implanted:Qty: 1 on 03/12/2018 by Jacob Mary MD at [facility] [employer] 12/06/2018 [id number] / [id number] Procedures Procedure Name Priority Date/Time Associated Diagnosis Comments EGFR STAT 03/22/2024 7:24 AM SEED PELLETER POCT HEMOGLOBIN A1C Routine 11/10/2023 9:57 AM CDT Type 2 diabetes mellitus with stage 3a chronic kidney disease, with long-term current use of insulin (HCC) LIPID PANEL Routine 10/16/2023 2:36 PM CDT Screening for lipid disorders DIABETES EYE EXAM Routine 04/02/2023 9:12 AM SEED PELLETER ALBUMIN CREATININE RATIO, URINE Routine 09/18/2022 12:53 [...] Results * (ABNORMAL) eGFR (03/22/2024 7:24 AM SEED PELLETER) eGFR 34(L) >=60 mL/min/1. 73 m2 Comment: [...] last reviewed 2020. Blood 03/22/2024 7:24 AM SEED PELLETER 03/22/2024 7:30 AM SEED PELLETER us Sara Hastings MD LAB BLOOD ORDERABLES Kaylah l Result [facility] [place] [facility] Department of Laboratories [place], [place] [id number] * (ABNORMAL) POCT hemoglobin A1c (11/10/2023 9:57 [...] 10/16/2023 8:28 PM CDT us Faith Hamm SCREEN TENDER LAB BLOOD ORDERABLES Final Re sult RUSTY [address] [facility] Department [place] [address] * (ABNORMAL) DIABETES EYE EXAM (04/02/2023 9:12 AM SEED PELLETER) Historical Provider MD HEALTH MAINTENANCE Final Result * (ABNORMAL) Albumin Creatinine Ratio, Urine (09/18/2022 12:53 PM CDT) Albumin Ur 1,043.2 mg/L [facility] ([place]) Comment: Interpretive Data No reference range established. Current interpretive data was last revised 2018. Testing performed by: [address] [address] Creatinine Ur 92.2 mg/dL [facility] ([place]) Comment: Interpretive Data No reference range established. Current interpretive data was last revised 2018. Testing performed by: [address] [address] Albumin Creatinine Ratio, Ur 1,131(H) 1 - 29 mg/g [facility] ([place]) Comment:Testing performed by : [address] [address] Urine 09/18/2022 12:5 3 PM CDT 09/18/2022 7:11 PM CDT Natalia Vang DO LAB URINE ORDERABLES Final Result RUSTY TALBOT [place] 1 [facility] Department [place] [address] * Dexa Axial Skeleton Bone Density 1 or 2 Site (08/23/2020 12:03 PM CDT) Anatomical Region Laterality Modality Body N/A Other 08/23/2020 12:3 1 PM CDT Narrative 08/23/2020 12:33 PM CDT EXAM DESCRIPTION: DEXA AXIAL SKELETON BONE DENSITY 1 OR MORE SITES REASON FOR STUDY: Post-menopausal female, screening for osteoporosis. High School Math Tutor/Model: [employer] (S/N [id number]) CLINICAL INFORMATION: Current height: 64 inches Maximum [...] by Thomas Davila M.D. AB: Report ID: [id number] Reading Location: [place] [address] Procedure Note Thomas Davila MD - 08/23/2020 EXAM DESCRIPTION: DEXA AXIAL SKELETON BONE DENSITY 1 OR MORE SITES REASON FOR STUDY: Post-menopausal female, screening for osteoporosis. High School Math Tutor/Model: [employer] (S/N [id number]) CLINICAL INFORMATION: Current height: 64 inches Maximum [...] by Thomas Davila M.D. AB: Report ID: [id number] Reading Location: [id number] Natalia Vang DO IMG DXA PROCEDURES Final R esult * DIABETES FOOT EXAM (07/22/2017) [place] [facility] Diabetic Foot Exam Unknown Historical Provider HEALTH MAINTENANCE Final Result from Last 3 Months or Most Recently Relevant to Health Maintenance Insurance [facility] MEDICARE ADVANTAGE IDPA [facility] MEDICARE ADVANTAGE Advance Directives For more information, please contact: [phone] * Full Code (Latest Code Status on [...] 12:11 AM 04/30/2019 7:11 PM Care Teams Wound Care Coordinator Relationship Specialty Start Date End Date Faith Hamm NP [address] [facility] [address] [place] [address] PCP - General Family Medicine 10/16/23 [place] [address] [address] [address] Consulting Physician Endocrinology 03/29/18 [place] [id number] [address] [address] Consulting Physician Nephrology 02/27/21 Thomas Ordoñez MD [address] [facility], [address] [address] Consulting Physician Medical Oncology 05/22/21 Joseph Mccullough MD [address] [place] [address] DR GALVAN [address] [place] [id number] Consulting Physician Gastroenterology 03/19/23
--- OUTSIDE RECORDS SUMMARY | 2024-07-25 15:06 | XMS_ITS | Clinical Summary ---
Author Organization [facility] Facility Address [address] [place] [id number] Care Team Providers Care Special Deputy Sheriff Name Role Phone Natalia Vang Primary Care Provider [phone] Allergies Active Allergy Reactions Criticality Noted Date [...] remains within goal, keep sidney appt with casting and curing operator. Cont current mgmt. Type 2 diabetes mellitus [...] Comments Blood Pressure 122/80 02/01/2021 11:40 AM KILN PUSHER Pulse 68 02/01/2021 11:40 AM KILN PUSHER Temperature 36.3 C (97.3 F) 02/01/2021 11:40 AM KILN PUSHER Respiratory Rate 19 10/03/2020 1:56 PM CDT Oxygen Saturation 97% 02/01/2021 11:40 AM KILN PUSHER Inhaled Oxygen Concentration - - Weight 68.3 kg (150 lb 8 oz) 02/01/2021 11:40 AM KILN PUSHER Height 162.6 cm (5' 4) 02/01/2021 11:40 AM KILN PUSHER Body Mass Index 25.83 02/01/2021 11:40 AM KILN PUSHER Plan of Treatment Health Maintenance Due Date [...] age to complete this topic Insurance [facility] Care Teams Special Deputy Sheriff Relationship Specialty Start Date End Date Natalia Vang DO [address] [place] [address] PCP - General Internal Medicine 08/29/20
--- OUTSIDE RECORDS SUMMARY | 2024-07-25 15:06 | XMS_ITS | Encounter Summary ---
Author Organization [facility] Address [address] [place], [place] [id number] [place] [address] Phone Care Team Providers Care Waste Collector Name Role Phone Natalia Vang DO Primary Care Provider [phone] Encounter Details Date Type Department Care Team (Late st Contact Info) Description 09/12/2020 Orders Only [employer] [facility] [address] [place] [address] [address] [place] [address] Di Demarco MD [address] [place], [place] [address] Social History Tobacco Use Types Packs/Day Years [...] on filedocumented in this encounter Care Teams Waste Collector Relationship Specialty Start Date End Date Natalia Vang DO [address] [place] [address] PCP - General Internal Medicine 08/29/20 documented as of this encounter
--- OUTSIDE RECORDS SUMMARY | 2024-07-25 15:07 | XMS_ITS | Clinical Summary ---
Author Organization [facility] Address [address] [place] [address] Care Team Providers Care Nba Player Name Role Phone Naun Georges MD Unavailable [phone] Di Demarco MD Unavailable [phone] Thomas Ordoñez MD Unavailable Joseph Mccullough MD Unavailable [phone] Faith Hamm NP Primary Care Provider [phone] Allergies Active Allergy Reactions Criticality Noted Date [...] hyperglycemia, with long-term current use of insulin ([facility]) TEST BLOOD SUGAR FOUR TIMES DAILY 300 [...] hyperglycemia, with long-term current use of insulin ([facility]) Use to inject 4 times daily as [...] hyperglycemia, with long-term current use of insulin ([facility]) INJECT 8-14 UNITS UNDER SKIN 3 TIMES [...] 01/01 Assessment & Plan (01/20/2024 8:47 PM SET ILLUSTRATOR): Annual Medicare wellness exam completed today. All [...] 04/09/2023 Assessment & Plan (04/09/2023 4:00 PM SET ILLUSTRATOR): Due to patient's current condition of odontoid fracture, and the fact that she has in a neck brace, she has increased risk for balance issues and falling. Patient would benefit from home physical therapy/occupational therapy. Both of these services were ordered during patient's hospital discharge planning. Dependent edema 04/07/2023 Assessment & Plan (07/06/2024 7:00 PM CDT): Assessment & Plan (04/08/2023 10:01 AM SET ILLUSTRATOR): Trial of low-dose furosemide. Encouraged use of compression stocking, elevated legs above heart when possible. Follow advise of PT/OT. H/O gastrointestinal hemorrhage 03/13/2023 Right adrenal mass 02/10/2023 Assessment & Plan (02/12/2023 1:47 PM SET ILLUSTRATOR): #Indeterminate hypoattenuating lesion within the left inferior [...] 2022 Assessment & Plan (04/08/2023 10:00 AM SET ILLUSTRATOR): Slowly improving, currently in a neck brace. Keep sidney appts with specialists. Assessment & Plan (02/16/2023 12:26 PM SET ILLUSTRATOR): # C2 type II odontoid fracture with epidural hematoma - NSGY Spine consult (Dr. Rodriguez) - CTA head/neck - no evidence of vascular injuries - Pain control - Ruby J at all times - Q4H NCs [...] the cervical spine -- Continue to wear Ruby J brace at all times Closed fracture of spinous process of thoracic v ertebra 02/09/2023 Assessment & Plan (02/09/2023 11:52 AM SET ILLUSTRATOR): T4 spinous process fx - PT/OT - Pain control At risk for inadequate oral intake 02/09/2023 Assessment & Plan (02/10/2023 1:33 PM SET ILLUSTRATOR): - Patient reports having poor intake due to throat pain/Ruby J - Supplements ordered - 02/10 re-educated patient on goal of at least 1 Ensure per mealtime Other closed displaced odontoid fracture, initia l encounter 02/08/2023 Ductal carcinoma of breast, right 04/11/2021 Recurrent malignant neoplasm of right breast 11/2021 Overview (09/18/2022): Assessment: Right breast invasive ductal cancer stage I A ER positive WA positive Lumpectomy plus radiation followed by anastrozole for 5 years. Second right breast cancer, invasive ductal with lobular features-04/09/2021 Grade 1 ER positive WA positive HER2 0 Ki-67 15% Shows simple [...] 02/07/2021 Assessment & Plan (02/07/2021 10:19 AM SET ILLUSTRATOR): Trial of famotidine. Abnormal mammogram of right [...] PM CDT): Advise to keep following with pesticide chemist Assessment & Plan (08/31/2020 5:39 PM CDT): [...] meds. Assessment & Plan (02/07/2021 10:17 AM SET ILLUSTRATOR): At baseline, cont current Rx meds. Assessment & Plan (08/31/2020 5:38 PM CDT): At baseline, cont current mgmt. Assessment & Plan (01/20/2020 12:54 PM SET ILLUSTRATOR): Occasional wheezing. Patient home nebulizer machine broke according to the patient. New prescription sent for another home nebulizer. Uses directed. Assessment & Plan (10/20/2019 1:46 PM CDT): Clinically improved, continue current meds. DDD (degenerative disc disease), lumbar 05/10/19 Assessment & Plan (01/20/2020 12:57 PM SET ILLUSTRATOR): Encouraged mviur-ba-mzyqlb exercises as tolerated. Managed by pain management. Chronic left hip pain 05/10/2019 retirement (current) use of opiate analgesic 01/30 History of coronary angioplasty with insertion o f stent 01/16/2019 Assessment & Plan (10/17/2023 7:59 PM CDT): Followed by cardiology Coronary artery disease of n ative artery of [place] heart with stable angina pectoris 06/22/2018 Assessment & Plan (02/17/2023 11:06 AM SET ILLUSTRATOR): # CAD # Hypertension - ASA 81 [...] medications. Assessment & Plan (01/20/2020 12:56 PM SET ILLUSTRATOR): He is asymptomatic. Continue current medications. Assessment [...] flonase. Assessment & Plan (02/07/2021 10:17 AM SET ILLUSTRATOR): Asymptomatic. Stable. Continue current prescription medications. Assessment & Plan (01/20/2020 12:54 PM SET ILLUSTRATOR): Stable. Cont. Current meds. Assessment & Plan [...] ENT Assessment & Plan (01/20/2020 12:55 PM SET ILLUSTRATOR): Asymptomatic. Managed by ENT. Assessment & Plan (01/16/2019 1:05 PM SET ILLUSTRATOR): Resolved. Assessment & Plan (08/05/2017 7:58 AM [...] understanding. Assessment & Plan (01/16/2019 1:04 PM SET ILLUSTRATOR): Raymundo, cont current meds. Assessment & Plan (06/01/2017 1:30 PM CDT): She needs diagnosis of asthma, she needs outpatient pulmonary function test and follow up with publication designer. Also recommend ENT consultation due to sinus [...] 11/26/2016 Assessment & Plan (01/20/2020 12:57 PM SET ILLUSTRATOR): Stable. Managed by pain specialist. Assessment & Plan (10/20/2019 1:49 PM CDT): Managed by Pain specialists. Assessment & Plan (01/16/2019 1:05 PM SET ILLUSTRATOR): Pain controlled. Diabetic peripheral neuropathy 11/26/2016 Assessment & Plan (11/10/2023 10:44 AM CDT): Chronic problem. Reviewed foot care; needs to lotion daily. Aware to check feet nightly, not to go barefoot. Assessment & Plan (04/07/2023 11:25 AM SET ILLUSTRATOR): May be contributing to her balance issues, in addition to the fact that she recently broke her neck. Patient encouraged to be careful when trying to ambulate and ask for help when needed. Assessment & Plan (09/18/2022 7:31 PM CDT): Stable. Cont. Current prescription medications, gabapentin. Managed by Pain specialists. Assessment & Plan (01/20/2020 12:55 PM SET ILLUSTRATOR): Asymptomatic. Managed by Endocrinology. Assessment & Plan (01/16/2019 1:06 PM SET ILLUSTRATOR): Clinically improved. Assessment & Plan (06/22/2018 3:50 AM CDT): Patient follows with Dr. Fonseca and receives tramadol p.r.n.. Hold tramadol at this time as patient will be receiving Norcos. OA (osteoarthritis) 11/26/2016 Assessment & Plan (01/16/2019 1:05 PM SET ILLUSTRATOR): On tramadol. Polymyalgia rheumatica 11/26/2016 Assessment & Plan (09/18/2022 7:31 PM CDT): Stable. Cont. Current prescription medications, Tramadol, gabapentin, managed by Pain Specialist. Assessment & Plan (01/20/2020 12:57 PM SET ILLUSTRATOR): Stable. Managed by pain specialist. Assessment & Plan (10/20/2019 1:48 PM CDT): Managed by pain specialists. Assessment & Plan (01/16/2019 1:06 PM SET ILLUSTRATOR): On tramadol. Hyperlipidemia associated with type 2 diabetes macie rosales 05/21/2016 Overview (11/26/2016): Hyperlipidemia Assessment & Plan (11/10/2023 10:17 AM CDT): Chronic problem, at goal on current Rosuvastatin 40mg. Last lipid panel: 10/16/23 LDL=58, MO=851. No changes at this time. Assessment & Plan (10/17/2023 8:00 PM CDT): Continue to limit fats in diet and take atorvastatin 80 mg daily Assessment & Plan (02/09/2023 11:41 AM SET ILLUSTRATOR): - Rosuvastatin Assessment & Plan (12/15/2022 11:35 AM CDT): On statin therapy Tolerating well Assessment & Plan (09/18/2022 7:23 PM CDT): LDL at goal of less than 100, continue current prescription medications, rosuvastatin. Assessment & Plan (05/05/2022 11:55 AM SET ILLUSTRATOR): Chronic problem, at goal on current Rosuvastatin 40mg. Last lipid panel: 09/09/21 LDL=63, IY=477. No changes at this time. Assessment & Plan (10/27/2021 5:57 PM CDT): LDL at goal of less than 100, continue current prescription medications. Assessment & Plan (09/09/2021 11:32 AM CDT): On statin therapy Tolerating well Assessment & Plan (03/25/2021 1:30 PM SET ILLUSTRATOR): On statin therapy Tolerating well Assessment & Plan (02/07/2021 10:17 AM SET ILLUSTRATOR): LDL at goal of < 70. Cont current Rx meds. Assessment & Plan (11/19/2020 3:49 PM CDT): On statin therapy Tolerating well Assessment & Plan (01/20/2020 12:53 PM SET ILLUSTRATOR): Elevated. Low-cholesterol diet recommended. Continue current medications. Managed by Endocrinology. Assessment & Plan (10/20/2019 1:46 PM CDT): Low chol diet recommended. Cont current mgmt. Assessment & Plan (09/12/2019 10:29 PM CDT): On statin therapy Tolerating well Assessment & Plan (09/04/2018 5:13 PM CDT): On statin therapy Tolerating well Assessment & Plan (06/22/2018 3:47 AM CDT): Continue statin Assessment & Plan (04/27/2018 7:20 AM SET ILLUSTRATOR): Lipid abnormalities are worsening. Nutritional counseling was provided. and Pharmacotherapy as ordered. Lipids will be reassessed in 6 months. Assessment & Plan (02/07/2018 11:18 PM SET ILLUSTRATOR): Pt on statin therapy Tolerating well Assessment & Plan (10/10/2017 10:42 PM CDT): Lipid abnormalities are unchanged. Nutritional counseling was provided. and Pharmacotherapy as ordered. Lipids will be reassessed in 6 months. 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 Orders: Ambulatory referral to Wound Clinic; Future Assessment & Plan (02/09/2024 8:32 PM SET ILLUSTRATOR): eGFR 47 on 09/17/2023. Currently on lisinopril [...] exam Assessment & Plan (02/17/2023 3:04 PM SET ILLUSTRATOR): - Home regimen: Novolog slide, insulin glargine [...] daughter to come to examination room from [facility]. She was not aware of which medications her mother was on either. Assessment & Plan (05/05/2022 11:56 AM SET ILLUSTRATOR): Chronic problem, near goal. A1c slowly trending [...] each visit Will do order process for [employer] G 6 CGM Advised to follow with Podiatry Follow-up in 6 months Assessment & Plan (03/25/2021 1:46 PM SET ILLUSTRATOR): Chronic, uncontrolled, improving slowly A1c today 8.7% [...] meds. Assessment & Plan (01/20/2020 12:53 PM SET ILLUSTRATOR): Uncontrolled. Managed by endocrinology. Patient encouraged to [...] months. Assessment & Plan (01/16/2019 1:03 PM SET ILLUSTRATOR): Managed by endocrinology. Assessment & Plan (09/04/2018 [...] now , they plan to go to [facility] Reminded to bring in blood sugar diary at next visit. Dietary recommendations for ADA diet. Regular aerobic exercise. Discussed ways to avoid symptomatic hypoglycemia. Discussed sick day management. Discussed foot care. Reminded to get yearly retinal exam. Diabetes will be reassessed in 2 weeks . Assessment & Plan (04/27/2018 7:20 AM SET ILLUSTRATOR): Diabetes is improving with treatment. - HbA1c [...] weeks. Assessment & Plan (02/07/2018 11:19 PM SET ILLUSTRATOR): Diabetes is worsening. Recent HbA1c 12/2017 - [...] month. Assessment & Plan (01/07/2018 5:29 PM SET ILLUSTRATOR): Diabetes is unchanged. Discussed foot care. Reminded to get yearly retinal exam. Keep sidney appt with new Supervisor Nuclear Medicine. Changed Levemir to Toujeo in an attempt to lower Rx costs for patient. Instructed her to take the forms for Levemir with her to her new Supervisor Nuclear Medicine it Toujeo was not more affordable. Assessment & Plan (10/10/2017 10:43 PM CDT): Diabetes is unchanged. Continue current treatment regimen. Reminded to bring in blood sugar diary at next visit. Dietary recommendations for ADA diet. Diabetes will be reassessed in 6 months. Assessment & Plan (03/21/2017 1:22 AM SET ILLUSTRATOR): Poorly controlled type 2 diabetes insulin dependent [...] home. Assessment & Plan (05/05/2022 11:42 AM SET ILLUSTRATOR): Chronic problem, well controlled on current carvedilol [...] appointment. Assessment & Plan (03/25/2021 1:30 PM SET ILLUSTRATOR): Hypertension is improving with treatment. Continue current treatment regimen. Dietary sodium restriction. Regular aerobic exercise. Blood pressure will be reassessed at the next regular appointment. Assessment & Plan (02/07/2021 10:15 AM SET ILLUSTRATOR): Clinically improved, continue current prescription medications. Assessment & Plan (11/19/2020 3:49 PM CDT): Hypertension is improving with treatment. Continue current treatment regimen. Dietary sodium restriction. Regular aerobic exercise. Blood pressure will be reassessed at the next regular appointment. Assessment & Plan (08/31/2020 5:37 PM CDT): BP remains within goal, keep sidney appt with pesticide chemist. Cont current mgmt. Assessment & Plan (10/20/2019 [...] monitor. Assessment & Plan (04/27/2018 7:20 AM SET ILLUSTRATOR): Hypertension is improving with treatment. Continue current treatment regimen. Dietary sodium restriction. Regular aerobic exercise. Blood pressure will be reassessed at the next regular appointment. Assessment & Plan (02/07/2018 11:18 PM SET ILLUSTRATOR): Hypertension is chronic, well controlled for pt [...] appointment. Assessment & Plan (03/21/2017 1:23 AM SET ILLUSTRATOR): Hypertension fairly controlled Will continue with home lisinopril Chronic diastolic congestive heart failure Assessment & Plan (09/18/2022 7:36 PM CDT): Patient and patient's daughter deny this condition. Reviewed most recent ECHO, results state normal left ventricular diastolic function. . Asked patient to re-establish care with cardiology. Patient is lost to follow up since her shear operator automatic left town. Patient currently asymptomatic. Assessment & Plan (10/20/2019 1:48 PM CDT): At baseline, managed by cardiology. Nocturnal hypoxemia Esophageal dysmotilities Resolved Problems Problem Noted Date Diagnosed Date Resolved Date Discharge planning issues 02/09/2023 Assessment & Plan (02/17/2023 2:44 PM SET ILLUSTRATOR): - 02/09 pending PT/OT, c spine xrays, [...] 11/10/2023 Assessment & Plan (05/05/2022 11:08 AM SET ILLUSTRATOR): Discussed healthy diet and importance of regular physical activity (20- 30min/day, 150min/wk). 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 Assessment & Plan (03/25/2021 1:53 PM SET ILLUSTRATOR): Advised to follow up with Pelletizer Operator Pt has appt on apr 02 2021 Gave instructions for local wound care Acute hypoxemic respiratory failure 04/27/2019 10/20/2019 Acute lower respiratory tract infection 04/27/2019 07/01/2019 BMI 27.0-27.9,adult 01/14/2019 04/21/19 23 Assessment & Plan (11/18/2019 1:40 PM CDT): Healthy, low carbohydrate lifestyle and exercise Dizziness 01/14/2019 10/20/2019 Assessment & Plan (01/16/2019 1:03 PM SET ILLUSTRATOR): May be secondary to anti-hypertensives. Decrease lisinopril [...] tolerated tramadol and has had prescriptions for [place] as in the past. Order patient [place] as p.r.n.. Patient recently had a STEMI in March and is currently on aspirin and Brilinta will have to avoid NSAIDs for now. Assessment & Plan (06/21/2018 12:56 PM CDT): Acute, Worsening, Pt needs I and D and IV antibiotics Pt going to ER now ( [facility] ) Acute pain of right knee 05/04/2018 Assessment & Plan (05/04/2018 3:09 PM SET ILLUSTRATOR): Will obtain x-ray. Taking tylenol for pain. Asking for something stronger. Referral to Dr. Bunch, [facility] per pt request. ST elevation [...] 10/09/2017 Assessment & Plan (03/21/2017 1:26 AM SET ILLUSTRATOR): The patient was started on the Rocephin [...] Description 07/20/2024 9:00 AM CDT Orders Only [facility] [address] [place] [id number] 07/13/2024 8:00 AM CDT Orders Only [facility] [address] [place] [address] Cellulitis of right lower extremity; Venous stasis ulcer of right calf limited to breakdown of skin without varicose veins (HCC); Type 2 diabetes mellitus with stage 3a chronic kidney disease, with long-term current use of insulin (HCC) 07/12/2024 3:19 PM CDT - 07/12/2024 11:59 PM CDT Hospital Encounter [facility] [address] [facility] [address] [place] [address] Thomas Washington MD Degeneration of intervertebral disc of lumbar region, unspecified whether pain present; Diabetic peripheral neuropathy (HCC) Discharge Disposition: Discharge to home or self care 07/06/2024 10:30 AM CDT Office Visit [facility] at [address] [place] [address] Faith Hamm NP Cellulitis of right lower extremity (Primary Dx); Dependent edema; Venous stasis ulcer of right calf limited to breakdown of skin without varicose veins (HCC); Type 2 diabetes mellitus with stage 3a chronic kidney disease, with long-term current use of insulin (HCC) 07/04/2024 10:15 AM CDT Office Visit [facility] [place] [address] [place] [id number] Ronel Leung NP Leg swelling (Primary Dx); Dependent edema; Cellulitis of right lower extremity 07/04/2024 Nurse Triage [facility] at [address] [place] [address] Faith Hamm NP 06/20/2024 Telephone [facility] [address] [place] [address] A, [address] [place] [address] Shameka Ray NP from Last 3 Months [...] Patient Refused),12/08/2022(Deferred: Patient Refused),12/10/2020,12/21/2019 PPD TEST 03/21/2023,02/19/2023 [employer] SARS-CoV-2 Monovalent Vaccination (12+ Yrs) PURPLE 05/08/2020,04/29/2020 [...] attack (HCC) Coronary artery disease invo lving [place] coronary artery without angina pectoris 06/22/2018 Kidney [...] materials from doctor or pharmacy Never 03/11/2023 [facility] Utilities Answer Date Recorded In the past 12 months has e [employer], oil, or water [facility] threatened to shut off services in your [...] How often do you attend chur or sabianism services? More than 4 times per year 04/13/2023 Do you belong to any clubs o r organizations such as mandaeism groups, unions, fraternal or athletic groups, or [...] on file Legal Sex Female 5:37 PM SET ILLUSTRATOR Gender Identity Not on file Sexual Orientation [...] Author [facility](03/2022 12:53 PM SET ILLUSTRATOR) Betty Aiken, RN Note: Patient will establish a comfort-function goal and identify the pain level that will allow the patient to perform desired activities and achieve an acceptable quality of life. Medical Devices Implanted Type Area Emt I/99 Device Identifier Shelf Expiration Date Model / Serial / Lot Bard Peripheral Vascular [id number] Ultraclip Bard 17ga 10cm 2 Trigger Permanent Ultrasound - [id number] - [id number] Implanted:Qty: 1 on 04/09/2021 by Thomas Davila MD at [facility] Breast Right: Breast [employer] 09/27/2023 [id number] / [employer] [id number] Xience Bree 3mm 18mm Rapid Exchange System Coronary Stent - [id number] Implanted:Qty: 1 on 03/12/2018 by Jacob Mary MD at [facility] [employer] 12/06/2018 [id number] / / [id number] Procedures Procedure Name Priority Date/Time Associated Diagnosis Comments EGFR STAT 03/22/2024 7:24 AM SET ILLUSTRATOR POCT HEMOGLOBIN A1C Routine 11/10/2023 9:57 AM CDT Type 2 diabetes mellitus with stage 3a chronic kidney disease, with long-term current use of insulin (HCC) LIPID PANEL Routine 10/16/2023 2:36 PM CDT Screening for lipid disorders DIABETES EYE EXAM Routine 04/02/2023 9:12 AM SET ILLUSTRATOR ALBUMIN CREATININE RATIO, URINE Routine 09/18/2022 12:53 [...] Results * (ABNORMAL) eGFR (03/22/2024 7:24 AM SET ILLUSTRATOR) eGFR 34(L) >=60 mL/min/1. 73 m2 Comment: [...] last reviewed 2020. Blood 03/22/2024 7:24 AM SET ILLUSTRATOR 03/22/2024 7:30 AM SET ILLUSTRATOR Sara Hastings MD LAB BLOOD ORDERABLES Kaylah l Result RUSTY TALBOT ([place]) [address] [facility] Department of Laboratories [place], [place] [id number] * (ABNORMAL) POCT hemoglobin A1c (11/10/2023 9:57 [...] 10/16/2023 8:28 PM CDT us Faith Hamm NURSE TECHNICIAN LAB BLOOD ORDERABLES Final Re sult RUSTY [address] Department [place] [address] * (ABNORMAL) DIABETES EYE EXAM (04/02/2023 9:12 AM SET ILLUSTRATOR) Historical Provider HEALTH MAINTENANCE Final Result * (ABNORMAL) Albumin Creatinine Ratio, Urine (09/18/2022 12:53 PM CDT) Albumin Ur 1,043.2 mg/L [facility] ([place]) Comment: Interpretive Data No reference range established. Current interpretive data was last revised 2018. Testing performed by: [facility], [address] [place] [address]., [id number] Creatinine Ur 92.2 mg/dL [facility] ([place]) Comment: Interpretive Data No reference range established. Current interpretive data was last revised 2018. Testing performed by: [facility], [address] [place] [address]., [address] Albumin Creatinine Ratio, Ur 1,131(H) 1 - 29 mg/g [facility] ([place]) Comment:Testing performed by : [address] [id number] Urine 09/18/2022 12:5 3 PM CDT 09/18/2022 7:11 PM CDT us Natalia Vang DO LAB URINE ORDERABLES Final Result [facility] ([place]) [address] [facility] Department [place] [address] * Dexa Axial Skeleton Bone Density 1 or 2 Site (08/23/2020 12:03 PM CDT) Anatomical Region Laterality Modality Body N/A Other 08/23/2020 12:3 1 PM CDT Narrative 08/23/2020 12:33 PM CDT EXAM DESCRIPTION: DEXA AXIAL SKELETON BONE DENSITY 1 OR MORE SITES REASON FOR STUDY: Post-menopausal female, screening for osteoporosis. Emt I/99/Model: [employer] Discovery SL (S/N [id number]) CLINICAL INFORMATION: Current height: 64 inches Maximum [...] Thomas Davila M.D. AB: AB Report ID: [id number] Reading Location: [id number] Procedure Note Thomas Davila MD - 08/23/2020 EXAM DESCRIPTION: DEXA AXIAL SKELETON BONE DENSITY 1 OR MORE SITES REASON FOR STUDY: Post-menopausal female, screening for osteoporosis. Emt I/99/Model: [employer] Discovery SL (S/N [id number]) CLINICAL INFORMATION: Current height: 64 inches Maximum [...] by Thomas Davila M.D. AB: Report ID: [id number] Reading Location: [place] [address] Natalia Vang DO IMG DXA PROCEDURES Final R esult * DIABETES FOOT EXAM (07/22/2017) [facility] Diabetic Foot Exam Unknown Historical Provider HEALTH MAINTENANCE Final Result from Last 3 Months or Most Recently Relevant to Health Maintenance Insurance [facility] MEDICARE ADVANTAGE IDDC [facility] MEDICARE ADVANTAGE Advance Directives For more information, please contact: [phone] * Full Code (Latest Code Status on [...] 12:11 AM 04/30/2019 7:11 PM Care Teams Nba Player Relationship Specialty Start Date End Date Faith Hamm NP [address] [facility] [address] [place] [address] PCP - General Family Medicine 10/16/23 [place] [id number] [facility] [address] [place] [address] Consulting Physician Endocrinology 03/29/18 [place] [address] [facility] [address] [place] [address] Consulting Physician Nephrology 02/27/21 Thomas Ordoñez MD [address] [facility] MEDICAL ONCOLOGY, [address] [id number] Consulting Physician Medical Oncology 05/22/21 Joseph Mccullough MD [address] [place] [place] [address] [address] Consulting Physician Gastroenterology 03/19/23
--- OUTSIDE RECORDS SUMMARY | 2024-07-25 15:07 | XMS_ITS | Encounter Summary ---
Author Organization [facility] Healthcare Address [address] [place] [address] Care Team Providers Care Pump House Engineer Name Role Phone Devaughn Bazan DO Unavailable [phone] Natalia Vang DO Primary Care Provider [phone] Naun Georges MD Unavailable [phone] Frankie Bright MD Unavailable [phone] iD Demarco MD Unavailable [phone] Thomas Ordoñez MD Unavailable Anne Marie Platt [facility] Unavailable [phone] Naun Georges MD Unavailable [phone] Mendez Shine RN Unavailable Joseph Mccullough MD Unavailable [phone] Faith Hamm NP Primary Care Provider [phone] Reason for Visit * Reason Onset Date Comments Scheduling Appointments 04/04/2020 DEXA rem kacey; no answer Encounter Details Date Type Department Care Team (Late st Contact Info) Description 04/04/2020 Telephone [facility] Imaging Center [address] [place] [address] Renata Wong RT Scheduling Appointments (DEXA reminder; [...] on file Legal Sex Female 5:37 PM GLOBAL CREATIVE CHAIRMAN Gender Identity Not on file Sexual Orientation Not on file documented as of this encounter Plan of Treatment Not on file documented as of this encounter Goals Goal Patient Goal Type Associated Problems Recent Progress Patient-Stated? Author BH-Pain Behavioral Health Improving(03/2022 12:53 PM GLOBAL CREATIVE CHAIRMAN) No Betty Elizabeth, CIRA Note: Patient will [...] COVID: Suspected 05/03/2021 05/03/2021 05/04/2021 3:05 AM GLOBAL CREATIVE CHAIRMAN COVID: Suspected 05/03/2021 05/03/2021 05/04/2021 7:39 PM GLOBAL CREATIVE CHAIRMAN COVID: Suspected 12/30/2022 12/30/2022 12/30/2022 10:47 AM CDT documented as of this encounter Care Teams Pump House Engineer Relationship Specialty Start Date End Date Natalia Vang DO PCP - General Family Medicine 10/09/17 10/15/23 Faiht Hamm NP [address] [address] PCP - General Family Medicine 10/16/23 Devaughn Bazan DO Surgeon Otolaryngology 03/26/17 11/09/23 [place] [address] [address] [address] Consulting Physician Endocrinology 03/29/18 [place] [address] [address] [place] [id number] Anesthesiologist Pain Management 10/20/19 11/09/23 [place] [address] [address] [address] Consulting Physician Nephrology 02/27/21 Thomas Ordoñez MD [address] [facility] MED[facility] ON[facility]Y[address] [address] Consulting Physician Medical Oncology 05/22/21 Anne Marie Platt [address]VAN [address] [place] [address] Pharmacist Pharmacy 08/23/21 08/25/21 [place] [address] [address] [address] Consulting Physician Endocrinology 12/15/22 11/09/23 Mendez Shine, CIRA [address] [place] [address] [address] Rn Registry 03/06/23 04/12/23 Joseph Mccullough MD [address] [place] [address] DR [address] [place] [address] Consulting Physician Gastroenterology 03/19/23 documented as of this encounter
--- OUTSIDE RECORDS SUMMARY | 2024-07-25 15:07 | XMS_ITS | Continuity of Care Document ---
Author Organization [facility] Address [address] [place] [address] Phone Care Team Providers Care Fruit Grading Supervisor Name Role Phone Cuauhtemoc CARPIO, Simba Unavailable [...] Diagnoses Date Provider Providers Copied on Encounter [facility], [address], [place], [place], [address], [place] tel:[phone] SEC Tamir [place] Professional Diabetic eye exam (chief complaint) Nuclear sclerotic cataract of both eyesDry eyes, bilateralType 2 diabetes mellitus with complicationsM oderate nonproliferati ve diabetic retinopathy, without macular edema, associated with type 2 diabetes mellitus Dec-2 2- 5 Kerwinkayla Cottrell. [address] [facility], [place], [place], [address], [place]. tel:[phone] Office/outpa tient Visit, [facility], [address] [place] [address] [address], [place], [place], [address], [place] tel:[phone] SEC Tamir [place] Professional F/u exam, Plaquenil therapy (chief complaint) Therapeutic Drug MonitoringSENI LE NUCLEAR CATARACTDiabet es (high blood sugar disease) affecting the eyeDiabetic retinopathy Apr-0 6201 5 Mariam Almodovar. [address] [facility], [address], [address], [place]. tel:[phone] Referring Provider: Simba Villarreal, [address] [facility] [address], [place], [address] . tel:[phone] Office/outpa tient Visit, [facility], [address], [place], [place], [address], [place] tel:[phone] SEC Tamir [place] Professional F/u exam, Plaquenil therapy (chief complaint) Therapeutic Drug MonitoringDiab etes (high blood sugar disease) affecting the eyeDiabetic retinopathySEN ILE NUCLEAR CATARACT Oct-0 4 Cuauhtemoc Cottrell. [address] [facility], [address], [place], [place], [address], [place]. tel:[phone] Referring Provider: Simba Villarreal [address] [facility], [place], [address] . tel:[phone] Office/outpa tient Visit, [facility], [address], [place], [place], [address], [place] tel:[phone] SEC Wolcott RADHA Professional Diabetes Mellitus Type 2, UncomplicatedS ENILE NUCLEAR CATARACTTherap eutic Drug Monitoring May-0 4-201 4 Cuauhtemoc Cottrell. [address] [employer], [address] [place], [address], [place]. tel:[phone] Office/outpa tient Visit, [facility], [address], [place], [place], [address], [place] tel:[phone] SEC Tamir RADHA Professional Therapeutic Drug MonitoringSENI LE NUCLEAR CATARACTHORDEO LUM INTERNUMDiabet es Mellitus Type 2, Uncomplicated Sep- 3-201 3 Cuauhtemoc Cottrell. [address] [facility], [facility] [place], [address], [place]. tel:[phone] Referring Provider: Simba Villarreal, [address] [place], [address] . tel:[phone] Office/outpa tient Visit, [facility], [address], [place], [place], [address], [place] [phone] SEC Wolcott RADHA Professional CHALAZION Apr- 3 Mariam Almodovar. [address] [facility], [address], [place], [address], [place]. tel:[phone] [facility], [address], [place], [place], [address], [place] tel:[phone] SEC Tamir RADHA Professional No Information Fe- 3 Cuauhtemoc Cottrell. [address] [facility], [facility] [place], [address], [place]. tel:[phone] Referring Provider: Simba Villarreal, [address] [facility] [place], [address] . tel:[phone] Office/outpa tient Visit, [facility], [address] [employer] [address], [place], [place], [address], [phone] SEC Tamir RADHA Professional BLEPHAROCONJUN CTIVIT NOS 8-201 2 Cuauhtemoc Cottrell. [address] [facility], [facility] A, [place], [place], [address], [place]. tel:[phone] [facility], [address], [place], [place], [address], tel:[phone] SEC Tamir GARCIA Professional No Information 8 Isaac Kim. [facility], [address], [place], [place], [address], . tel:[phone] Referring Provider: Simba Villarreal, [address] [facility] [address], [place], [address] . tel:[phone] Office/outpa tient Visit, [facility], [address], [place], [place], [address], [place] [phone] SEC Tamir GARCIA Professional No Information 7 Isaac Kim. [facility], [address], [place], [place], [address], [place]. tel:[phone] Referring Provider: Julio Villarreal, [facility] [address], [place], [address] . tel:[phone] Family History Family Member Type Diagnosis Age At Onset No Information Payers Payer name Insurance type Covered constitution party ID Max sommerlesvia(s) Oswaldo (Advantra, Gold Advantage) [place] [id number] Social History Type Description Quantity Date Captured [...] Information Instructions Date Instruction Additional Infor abilio Follow up - refer to retina specialist Impression/Plan - Di scussed dry eyes continue artificial tears prn for comfort. Cataracts discussed, will continue to monitor. Diabetes type II: moderate background diabetic retinopathy, will refer patient for a retinal consult to determine if treatment is necessary. Discussed ocular and systemic benefits of maintaining blood sugar control. DM letter to Dr Toscano. Return to clinic when released by Retina. - Return in 6 months with Simba Posadas M.D. for Complete Exam with OCT of macula & 24-2 Related to See list of assessments above - Diabetes, mild ann kground diabetic retinopathy, [...] Related to See list of assessments above Therapeutic Drug Mon itoring - Educational material given Related to Therapeutic Drug Monitoring - RTC in 6 months fo r [...] to See list of assessments above - 6mths Related to Diabe erlin Mellitus Type 2, Uncomplicated mild web project manager-rare dot he mm - observation Educational materials provided to patient. Related to Diabetes Mellitus Type 2, Uncomplicated mod nsc - pt states vis ok Relat ed to SENILE NUCLEAR CATARACT - 6mths- 10-2 vf and dilate Rela morelia to Therapeutic Drug Monitoring plaquinil-no toxicity - observat ion Related to Therapeutic Drug Monitoring no web project manager - reevaluate in 6mths when in for [...] 6mths Related to Diabe erlin Type II Chalazion, LLL - vis ion not affected [...] 7-10 days or worsen. Related to Chalazion - PRN Related to Chala figeuroa cataracts - states vis seems ok - 1yr no web project manager - DM letter MGD - HMP and AThumidifier - Will [...]
--- OUTSIDE RECORDS SUMMARY | 2024-07-25 15:07 | XMS_ITS | Encounter Summary ---
Author Organization [facility] Healthcare Address [address] [place] [address] Care Team Providers Care Roll Line Operator Name Role Phone Naun Georges MD Unavailable [phone] Di Demarco MD Unavailable [phone] Thomas Ordoñez MD Unavailable Joseph Mccullough MD Unavailable [phone] Faith Hamm NP Primary Care Provider [phone] Reason for Visit * Reason Onset Date Comments Referral Request 12/30/2023 Encounter Details Date Type Department Care Team (Late st Contact Info) Description 12/30/2023 Telephone [facility] Medical Group Primary Care at [address] [place] [address] Faith Hamm NP [address] [place] [address] [address] [place] [address] Referral Request Social History Tobacco [...] materials from doctor or pharmacy Never 03/11/2023 [facility] Utilities Answer Date Recorded In the [...] often do you attend chur ch or congregational services? More than 4 times per year 04/13/2023 Do you belong to any clubs o r organizations such as jewish groups, unions, fraternal or athletic groups, or [...] place to sleep or slept in a fdc (including now)? No 04/13/2023 Personal Safety Answer [...] on file Legal Sex Female 5:37 PM COMPLIANCE ADVISOR Gender Identity Not on file Sexual Orientation Not on file documented as of this encounter Miscellaneous Notes * Telephone Encounter - Pinky Flores MA - 01/04/2024 1:13 PM COMPLIANCE ADVISOR Patient called back and LIANCE ADVISOR * Telephone Encounter - Lazara Ocasio - 01/04/2024 1:12 PM CST Call Back Caller???s Concern: Patient is returning call to Angie to give information. CS warm transferred call to backline Does message need to be routed? No LIANCE ADVISOR * Telephone Encounter - Angie Serna MA - 01/04/2024 12:53 PM CST Spoke with her, Uncomfortable when sitting. Urinary urgency. Pt states urologist office is at [facility] and gave me a phone number of [phone] but that phone number is not working when I tried to call. Pt states she will do some research and call back with the info. LIANCE ADVISOR * Telephone Encounter - [facility] - [...] Author [facility]OSH-Pain Behavioral Health Improving(03/2022 12:53 PM COMPLIANCE ADVISOR) No Betty Elizabeth, RN Note: Patient will establish a comfort-function goal and identify the pain level that will allow the patient to perform desired activities and achieve an acceptable quality of life. documented as of this encounter Visit Diagnoses Not on filedocumented in this encounter Care Teams Roll Line Operator Relationship Specialty Start Date End Date Faith Hamm NP [address] [facility] [address] [place] [address] PCP - General Family Medicine 10/16/23 [place] [address] [address] [address] Consulting Physician Endocrinology 03/29/18 [place] [address] [address] [address] Consulting Physician Nephrology 02/27/21 Thomas Ordoñez MD [address] [facility]ICAL ONCOLOGY, [address] [address] Consulting Physician Medical Oncology 05/22/21 Joseph Mccullough MD [address] [place] [address] DR [address] [place] [address] Consulting Physician Gastroenterology 03/19/23 documented as of this encounter
--- OUTSIDE RECORDS SUMMARY | 2024-07-25 15:07 | XMS_ITS | Encounter Summary ---
Author Organization [facility] Healthcare Address [address] [place] [address] Care Team Providers Care Retail Cashier Associate Name Role Phone Devaughn Bazan DO Unavailable [phone] Natalia Vang DO Primary Care Provider [phone] Naun Georges MD Unavailable [phone] Frankie Bright MD Unavailable Di Demarco MD Unavailable [phone] Thomas Ordoñez MD Unavailable Anne Marie Platt [facility] Unavailable [phone] Naun Georges MD Unavailable [phone] Mendez Shine RN Unavailable [phone] Joseph Mccullough MD Unavailable [phone] Faith Hamm NP Primary Care Provider [phone] Reason for Visit * Reason Onset Date Comments Scheduling Appointments 05/23/2020 Reminder call for DEXA, No answer Encounter Details Date Type Department Care Team (Late st Contact Info) Description 05/23/2020 Telephone [facility] Imaging Center [address] [place] [address] Kristina Pierre RT Scheduling Appointments (Reminder call [...] on file Legal Sex Female 5:37 PM GARAGE SUPERVISOR Gender Identity Not on file Sexual Orientation Not on file documented as of this encounter Plan of Treatment Not on file documented as of this encounter Goals Goal Patient Goal Type Associated Problems Recent Progress Patient-Stated? Author BH-Pain Behavioral Health Improving(03/2022 12:53 PM GARAGE SUPERVISOR) No Betty Elizabeth RN Note: Patient will [...] COVID: Suspected 05/03/2021 05/03/2021 05/04/2021 3:05 AM GARAGE SUPERVISOR COVID: Suspected 05/03/2021 05/03/2021 05/04/2021 7:39 PM GARAGE SUPERVISOR COVID: Suspected 12/30/2022 12/30/2022 12/30/2022 10:47 AM CDT documented as of this encounter Care Teams Retail Cashier Associate Relationship Specialty Start Date End Date Natalia Vang DO PCP - General Family Medicine 10/09/17 10/15/23 Faith Hamm NP [address] [address] PCP - General Family Medicine 10/16/23 Devaughn Bazan DO Surgeon Otolaryngology 03/26/17 11/09/23 [place] [address] [address] [address] Consulting Physician Endocrinology 03/29/18 [place] [address] [address] Anesthesiologist Pain Management 10/20/19 11/09/23 [place] [address] [address] Consulting Physician Nephrology 02/27/21 Thomas Ordoñez MD [address] [facility] MEDICAL ONCOLOGY[address] [address] Consulting Physician Medical Oncology 05/22/21 Anne Marie Platt, [address] [place] [address] Pharmacist Pharmacy 08/23/21 08/25/21 [place] [address] [address] [address] Consulting Physician Endocrinology 12/15/22 11/09/23 Mendez Shine, CIRA [address] [place] [address] [address] Bulk Tank Car Unloader 03/06/23 04/12/23 Joseph Mccullough MD [address] [place] [address] [address] Consulting Physician Gastroenterology 03/19/23 documented as of this encounter
--- OUTSIDE RECORDS SUMMARY | 2024-07-25 15:07 | XMS_ITS | Clinical Summary ---
Author Organization [facility] Address [address] [place] [address] Phone Care Team Providers Care Rigging Helper Name Role Phone Hank Seymour MD Unavailable [phone] Sandip Murphy MD Unavailable [phone] Sony Patel MD Unavailable + Maraih Rose MD Unavailable [phone] Con Pete MD, Merrill Unavailable [phone] Natalia Vang DO Primary Care Provider [phone] Urban To APRN, BLOOD BANK ORDER CONTROL CLERK Unavailable Allergies Active Allergy Reactions Criticality Noted Date Comments Codeine Unknown Penicillins Unknown Medications anastrozole (ARIMIDEX) 1 MG Tablet Take 1 mg by mouth daily. Active NOVOLOG FLEXPEN 100 UNIT/ML Solution Pen-injector 15 Units by Subcutaneous route. 3 03/27/19 16 Active B-D UF III MINI PEN NEEDLES 31G X 5 MM [facility] 4 04/09/19 16 Active fluticasone (FLONASE) [...] Type Department Care Team Description 05/11/2024 Telephone [facility] [address] [place] [address] Urban To, MEDICAL REPRESENTATIVE, BLOOD BANK ORDER CONTROL CLERK Vaginal Prolapse from Last 3 Months Immunizations [...] Comments Blood Pressure 105/66 03/28/2024 2:10 PM ENVIRONMENTAL QUALITY ANALYST Pulse 55 03/28/2024 2:10 PM ENVIRONMENTAL QUALITY ANALYST Temperature 36.4 C (97.5 F) 11/27/2015 11:04 AM CDT Respiratory Rate 14 03/28/2024 2:10 PM ENVIRONMENTAL QUALITY ANALYST Oxygen Saturation 97% 03/28/2024 2:10 PM ENVIRONMENTAL QUALITY ANALYST Inhaled Oxygen Concentration - - Weight 67.1 kg (148 lb) 03/28/2024 2:10 PM ENVIRONMENTAL QUALITY ANALYST Height 165.1 cm (5' 5) 03/28/2024 2:10 PM ENVIRONMENTAL QUALITY ANALYST Body Mass Index 24.63 03/28/2024 2:10 PM ENVIRONMENTAL QUALITY ANALYST Plan of Treatment Health Maintenance Due Date [...] 03/11/2018 Infected nailbed of toe, unspecified laterality [facility] SCREENING BILATERAL DIGITAL W CAD Routine 08/26/2016 Visit for screening mammogram DILATED EYE EXAM Routine 02/07/2016 [facility] BONE DENSITOMETRY AXIAL SKELETON Routine 04/09/2015 2:23 PM ENVIRONMENTAL QUALITY ANALYST Closed fracture of femur with routine healing, unspecified fracture morphology, unspecified laterality, unspecified portion of femur, subsequent encounter Abnormal Bone Density Screening from Last 3 Months or Most Recently Relevant to Health Maintenance Results * EXTERNAL PODIATRY REFERRAL (03/11/2018) us Lavinia Padgett MD OUTPT REFERRALS EXT/INT Kaylah l Result * [facility] SCREENING BILATERAL DIGITAL W CAD (08/26/2016) Anatomical Region Laterality Modality breast Bilateral Mammography us Bashir Uribe MD IMG MAMMO ORDERABLES Kaylah l Result * DILATED EYE EXAM (02/07/2016) us Simba Posadas MD PROCEDURE/MINOR SURGICAL ORDE SHELL Final Result * [facility] BONE DENSITOMETRY AXIAL SKELETON (04/09/2015 2:23 PM ENVIRONMENTAL QUALITY ANALYST) Anatomical Region Laterality Modality BODY N/A Other 04/09/2015 4:13 PM ENVIRONMENTAL QUALITY ANALYST Impressions 04/09/2015 4:16 PM ENVIRONMENTAL QUALITY ANALYST IMPRESSION: 1. Low bone mass by WHO [...] of Osteoporosis (http://www.nof.org/professionals/clinical-guidelines) Narrative 04/09/2015 4:16 PM ENVIRONMENTAL QUALITY ANALYST EXAMINATION: Bone density examination (hip and spine). HISTORY: 80 year old postmenopausal female with given history of femur fracture. Current Height: 64 inches Maximum Height: 66 inches Weight: 153 pounds RISK FACTORS: Left hip fracture as an adult. COMPARISON(S): August 28, 2010. TIME STUDY CLERK/MODEL: Pogoapp (S/N [id number] FINDINGS: AP lumbar spine L1-L4 Total BMD is 1.029 g/xt0P-lrdck is -1.3 Most recent prior BMD was 1.059 g/cm2 There has been a 2.8% decrease in BMD which is statistically significant. Left Hip Current Total BMD is 0.837 g/mw5N-ijboy is -1.4 Most recent prior Total BMD was 0.941 g/cm2 There has been a 11.1% decrease in BMD which is statistically significant. Current femoral neck BMD is 0.749 g/at5B-kieeg is -2.1 Thomas Davila M.D. THIS IS [...] as an adult. COMPARISON(S): August 28, 2010. TIME STUDY CLERK/MODEL: Pogoapp (S/N [id number] FINDINGS: AP lumbar spine L1-L4 Total BMD is 1.029 g/rv3K-wruuf is -1.3 Most recent prior BMD was 1.059 g/cm2 There has been a 2.8% decrease in BMD which is statistically significant. Left Hip Current Total BMD is 0.837 g/af9T-qhdlr is -1.4 Most recent prior Total BMD was 0.941 g/cm2 There has been a 11.1% decrease in BMD which is statistically significant. Current femoral neck BMD is 0.749 g/rb1B-xgzsc is -2.1 Thomas Davila M.D. THIS IS [...] Relevant to Health Maintenance [facility] Care Teams Rigging Helper Relationship Specialty Start Date End Date Natalia Vang DO 2 [facility] [address] [address] PCP - General Family Medicine 07/20/20 Hank Seymour MD Consulting Physician Radiation Oncology 07/31/15 Sandip Murphy MD Consulting Physician General Surgery 07/31/15 Sony Patel MD 4 [facility] [address] [address] Consulting Physician Endocrinology 07/31/15 Mariah Rose MD 1 [facility] [place] [address] Consulting Physician Wound Care 07/31/15 Merrill Andujar Jr., MD [facility] [place], [place] [address] Consulting Physician Oncology 07/31/15 Urban To APRN, BLOOD BANK ORDER CONTROL CLERK [address] [place] [address] Nurse Practitioner Advanced Practice Nurse 03/28/23
--- OUTSIDE RECORDS SUMMARY | 2024-07-25 15:07 | XMS_ITS ---
Author Organization [facility] Address [address] [place] [address] Care Team Providers Care Transaction Coordinator Name Role Phone Naun Georges MD Unavailable [phone] Di Demarco MD Unavailable [phone] Thomas Ordoñez MD Unavailable Joseph Mccullough MD Unavailable [phone] Faith Hamm NP Primary Care Provider [phone] Active Problems Problem Noted Date Diagnosed Date [...] 01/01 Assessment & Plan (01/20/2024 8:47 PM GROCERY BUYER): Annual Medicare wellness exam completed today. All [...] 04/09/2023 Assessment & Plan (04/09/2023 4:00 PM GROCERY BUYER): Due to patient's current condition of odontoid fracture, and the fact that she has in a neck brace, she has increased risk for balance issues and falling. Patient would benefit from home physical therapy/occupational therapy. Both of these services were ordered during patient's hospital discharge planning. Dependent edema 04/07/2023 Assessment & Plan (07/06/2024 7:00 PM CDT): Assessment & Plan (04/08/2023 10:01 AM GROCERY BUYER): Trial of low-dose furosemide. Encouraged use of compression stocking, elevated legs above heart when possible. Follow advise of PT/OT. H/O gastrointestinal hemorrhage 03/13/2023 Right adrenal mass 02/10/2023 Assessment & Plan (02/12/2023 1:47 PM GROCERY BUYER): #Indeterminate hypoattenuating lesion within the left inferior [...] 2022 Assessment & Plan (04/08/2023 10:00 AM GROCERY BUYER): Slowly improving, currently in a neck brace. Keep sidney appts with specialists. Assessment & Plan (02/16/2023 12:26 PM GROCERY BUYER): # C2 type II odontoid fracture with epidural hematoma - NSGY Spine consult (Dr. Rodriguez) - CTA head/neck - no evidence of vascular injuries - Pain control - Chemehuevi J at all times - Q4H NCs [...] the cervical spine -- Continue to wear Cheme[place]uevi J brace at all times Closed fracture of spinous process of thoracic v ertebra 02/09/2023 Assessment & Plan (02/09/2023 11:52 AM GROCERY BUYER): T4 spinous process fx - PT/OT - Pain control At risk for inadequate oral intake 02/09/2023 Assessment & Plan (02/10/2023 1:33 PM GROCERY BUYER): - Patient reports having poor intake due to throat pain/Chemehuevi J - Supplements ordered - 02/10 re-educated patient on goal of at least 1 Ensure per mealtime Other closed displaced odontoid fracture, initia l encounter 02/08/2023 Ductal carcinoma of breast, right 04/11/2021 Recurrent malignant neoplasm of right breast 11/2021 Overview (09/18/2022): Assessment: Right breast invasive ductal cancer stage I A ER positive CA positive Lumpectomy plus radiation followed by anastrozole for 5 years. Second right breast cancer, invasive ductal with lobular features-04/09/2021 Grade 1 ER positive CA positive HER2 0 Ki-67 15% Shows simple [...] 02/07/2021 Assessment & Plan (02/07/2021 10:19 AM GROCERY BUYER): Trial of famotidine. Abnormal mammogram of right [...] PM CDT): Advise to keep following with project surveyor Assessment & Plan (08/31/2020 5:39 PM CDT): [...] meds. Assessment & Plan (02/07/2021 10:17 AM GROCERY BUYER): At baseline, cont current Rx meds. Assessment & Plan (08/31/2020 5:38 PM CDT): At baseline, cont current mgmt. Assessment & Plan (01/20/2020 12:54 PM GROCERY BUYER): Occasional wheezing. Patient home nebulizer machine broke according to the patient. New prescription sent for another home nebulizer. Uses directed. Assessment & Plan (10/20/2019 1:46 PM CDT): Clinically improved, continue current meds. DDD (degenerative disc disease), lumbar 05/10/19 Assessment & Plan (01/20/2020 12:57 PM GROCERY BUYER): Encouraged rcyhp-ha-zkrjim exercises as tolerated. Managed by pain management. Chronic left hip pain 05/10/2019 superintendent terminal (current) use of opiate analgesic 01/30 History of coronary angioplasty with insertion o f stent 01/16/2019 Assessment & Plan (10/17/2023 7:59 PM CDT): Followed by cardiology Coronary artery disease of n ative artery of [place] heart with stable angina pectoris 06/22/2018 Assessment & Plan (02/17/2023 11:06 AM GROCERY BUYER): # CAD # Hypertension - ASA 81 [...] medications. Assessment & Plan (01/20/2020 12:56 PM GROCERY BUYER): He is asymptomatic. Continue current medications. Assessment [...] flonase. Assessment & Plan (02/07/2021 10:17 AM GROCERY BUYER): Asymptomatic. Stable. Continue current prescription medications. Assessment & Plan (01/20/2020 12:54 PM GROCERY BUYER): Stable. Cont. Current meds. Assessment & Plan [...] ENT Assessment & Plan (01/20/2020 12:55 PM GROCERY BUYER): Asymptomatic. Managed by ENT. Assessment & Plan (01/16/2019 1:05 PM GROCERY BUYER): Resolved. Assessment & Plan (08/05/2017 7:58 AM [...] understanding. Assessment & Plan (01/16/2019 1:04 PM GROCERY BUYER): Stable, cont current meds. Assessment & Plan (06/01/2017 1:30 PM CDT): She needs diagnosis of asthma, she needs outpatient pulmonary function test and follow up with territory supervisor. Also recommend ENT consultation due to sinus [...] 11/26/2016 Assessment & Plan (01/20/2020 12:57 PM GROCERY BUYER): Stable. Managed by pain specialist. Assessment & Plan (10/20/2019 1:49 PM CDT): Managed by Pain specialists. Assessment & Plan (01/16/2019 1:05 PM GROCERY BUYER): Pain controlled. Diabetic peripheral neuropathy 11/26/2016 Assessment & Plan (11/10/2023 10:44 AM CDT): Chronic problem. Reviewed foot care; needs to lotion daily. Aware to check feet nightly, not to go barefoot. Assessment & Plan (04/07/2023 11:25 AM GROCERY BUYER): May be contributing to her balance issues, in addition to the fact that she recently broke her neck. Patient encouraged to be careful when trying to ambulate and ask for help when needed. Assessment & Plan (09/18/2022 7:31 PM CDT): Stable. Cont. Current prescription medications, gabapentin. Managed by Pain specialists. Assessment & Plan (01/20/2020 12:55 PM GROCERY BUYER): Asymptomatic. Managed by Endocrinology. Assessment & Plan (01/16/2019 1:06 PM GROCERY BUYER): Clinically improved. Assessment & Plan (06/22/2018 3:50 AM CDT): Patient follows with Dr. Fonseca and receives tramadol p.r.n.. Hold tramadol at this time as patient will be receiving Norcos. OA (osteoarthritis) 11/26/2016 Assessment & Plan (01/16/2019 1:05 PM GROCERY BUYER): On tramadol. Polymyalgia rheumatica 11/26/2016 Assessment & Plan (09/18/2022 7:31 PM CDT): Stable. Cont. Current prescription medications, Tramadol, gabapentin, managed by Pain Specialist. Assessment & Plan (01/20/2020 12:57 PM GROCERY BUYER): Stable. Managed by pain specialist. Assessment & Plan (10/20/2019 1:48 PM CDT): Managed by pain specialists. Assessment & Plan (01/16/2019 1:06 PM GROCERY BUYER): On tramadol. Hyperlipidemia associated with type 2 diabetes macie rosales 05/21/2016 Overview (11/26/2016): Hyperlipidemia Assessment & Plan (11/10/2023 10:17 AM CDT): Chronic problem, at goal on current Rosuvastatin 40mg. Last lipid panel: 10/16/23 LDL=58, YX=216. No changes at this time. Assessment & Plan (10/17/2023 8:00 PM CDT): Continue to limit fats in diet and take atorvastatin 80 mg daily Assessment & Plan (02/09/2023 11:41 AM GROCERY BUYER): - Rosuvastatin Assessment & Plan (12/15/2022 11:35 AM CDT): On statin therapy Tolerating well Assessment & Plan (09/18/2022 7:23 PM CDT): LDL at goal of less than 100, continue current prescription medications, rosuvastatin. Assessment & Plan (05/05/2022 11:55 AM GROCERY BUYER): Chronic problem, at goal on current Rosuvastatin 40mg. Last lipid panel: 09/09/21 LDL=63, TY=720. No changes at this time. Assessment & Plan (10/27/2021 5:57 PM CDT): LDL at goal of less than 100, continue current prescription medications. Assessment & Plan (09/09/2021 11:32 AM CDT): On statin therapy Tolerating well Assessment & Plan (03/25/2021 1:30 PM GROCERY BUYER): On statin therapy Tolerating well Assessment & Plan (02/07/2021 10:17 AM GROCERY BUYER): LDL at goal of < 70. Cont current Rx meds. Assessment & Plan (11/19/2020 3:49 PM CDT): On statin therapy Tolerating well Assessment & Plan (01/20/2020 12:53 PM GROCERY BUYER): Elevated. Low-cholesterol diet recommended. Continue current medications. Managed by Endocrinology. Assessment & Plan (10/20/2019 1:46 PM CDT): Low chol diet recommended. Cont current mgmt. Assessment & Plan (09/12/2019 10:29 PM CDT): On statin therapy Tolerating well Assessment & Plan (09/04/2018 5:13 PM CDT): On statin therapy Tolerating well Assessment & Plan (06/22/2018 3:47 AM CDT): Continue statin Assessment & Plan (04/27/2018 7:20 AM GROCERY BUYER): Lipid abnormalities are worsening. Nutritional counseling was provided. and Pharmacotherapy as ordered. Lipids will be reassessed in 6 months. Assessment & Plan (02/07/2018 11:18 PM GROCERY BUYER): Pt on statin therapy Tolerating well Assessment & Plan (10/10/2017 10:42 PM CDT): Lipid abnormalities are unchanged. Nutritional counseling was provided. and Pharmacotherapy as ordered. Lipids will be reassessed in 6 months. 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 Orders: Ambulatory referral to Wound Clinic; Future Assessment & Plan (02/09/2024 8:32 PM GROCERY BUYER): eGFR 47 on 09/17/2023. Currently on lisinopril [...] exam Assessment & Plan (02/17/2023 3:04 PM GROCERY BUYER): - Home regimen: Novolog slide, insulin glargine [...] daughter to come to examination room from [facility]. She was not aware of which medications her mother was on either. Assessment & Plan (05/05/2022 11:56 AM GROCERY BUYER): Chronic problem, near goal. A1c slowly trending [...] months Assessment & Plan (03/25/2021 1:46 PM GROCERY BUYER): Chronic, uncontrolled, improving slowly A1c today 8.7% [...] meds. Assessment & Plan (01/20/2020 12:53 PM GROCERY BUYER): Uncontrolled. Managed by endocrinology. Patient encouraged to [...] months. Assessment & Plan (01/16/2019 1:03 PM GROCERY BUYER): Managed by endocrinology. Assessment & Plan (09/04/2018 [...] now , they plan to go to [facility] Reminded to bring in blood sugar diary at next visit. Dietary recommendations for ADA diet. Regular aerobic exercise. Discussed ways to avoid symptomatic hypoglycemia. Discussed sick day management. Discussed foot care. Reminded to get yearly retinal exam. Diabetes will be reassessed in 2 weeks . Assessment & Plan (04/27/2018 7:20 AM GROCERY BUYER): Diabetes is improving with treatment. - HbA1c [...] weeks. Assessment & Plan (02/07/2018 11:19 PM GROCERY BUYER): Diabetes is worsening. Recent HbA1c 12/2017 - [...] month. Assessment & Plan (01/07/2018 5:29 PM GROCERY BUYER): Diabetes is unchanged. Discussed foot care. Reminded to get yearly retinal exam. Keep sidney appt with new Lead Custodian. Changed Levemir to Toujeo in an attempt to lower Rx costs for patient. Instructed her to take the forms for Levemir with her to her new Lead Custodian it Toujeo was not more affordable. Assessment & Plan (10/10/2017 10:43 PM CDT): Diabetes is unchanged. Continue current treatment regimen. Reminded to bring in blood sugar diary at next visit. Dietary recommendations for ADA diet. Diabetes will be reassessed in 6 months. Assessment & Plan (03/21/2017 1:22 AM GROCERY BUYER): Poorly controlled type 2 diabetes insulin dependent [...] home. Assessment & Plan (05/05/2022 11:42 AM GROCERY BUYER): Chronic problem, well controlled on current carvedilol [...] appointment. Assessment & Plan (03/25/2021 1:30 PM GROCERY BUYER): Hypertension is improving with treatment. Continue current treatment regimen. Dietary sodium restriction. Regular aerobic exercise. Blood pressure will be reassessed at the next regular appointment. Assessment & Plan (02/07/2021 10:15 AM GROCERY BUYER): Clinically improved, continue current prescription medications. Assessment & Plan (11/19/2020 3:49 PM CDT): Hypertension is improving with treatment. Continue current treatment regimen. Dietary sodium restriction. Regular aerobic exercise. Blood pressure will be reassessed at the next regular appointment. Assessment & Plan (08/31/2020 5:37 PM CDT): BP remains within goal, keep sidney appt with project surveyor. Cont current mgmt. Assessment & Plan (10/20/2019 [...] monitor. Assessment & Plan (04/27/2018 7:20 AM GROCERY BUYER): Hypertension is improving with treatment. Continue current treatment regimen. Dietary sodium restriction. Regular aerobic exercise. Blood pressure will be reassessed at the next regular appointment. Assessment & Plan (02/07/2018 11:18 PM GROCERY BUYER): Hypertension is chronic, well controlled for pt [...] appointment. Assessment & Plan (03/21/2017 1:23 AM GROCERY BUYER): Hypertension fairly controlled Will continue with home lisinopril Chronic diastolic congestive heart failure Assessment & Plan (09/18/2022 7:36 PM CDT): Patient and patient's daughter deny this condition. Reviewed most recent ECHO, results state normal left ventricular diastolic function. . Asked patient to re-establish care with cardiology. Patient is lost to follow up since her leaf stamper left town. Patient currently asymptomatic. Assessment & [...] 02/09/2023 Assessment & Plan (02/17/2023 2:44 PM GROCERY BUYER): - 02/09 pending PT/OT, c spine xrays, [...] 11/10/2023 Assessment & Plan (05/05/2022 11:08 AM GROCERY BUYER): Discussed healthy diet and importance of regular physical activity (20- 30min/day, 150min/wk). 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 Assessment & Plan (03/25/2021 1:53 PM GROCERY BUYER): Advised to follow up with Salary And Wage Administrator Pt has appt on apr 02 2021 Gave instructions for local wound care Acute hypoxemic respiratory failure 04/27/2019 10/20/2019 Acute lower respiratory tract infection 04/27/2019 07/01/2019 BMI 27.0-27.9,adult 01/14/2019 02/20/20 23 Assessment & Plan (11/18/2019 1:40 PM CDT): Healthy, low carbohydrate lifestyle and exercise Dizziness 01/14/2019 10/20/2019 Assessment & Plan (01/16/2019 1:03 PM GROCERY BUYER): May be secondary to anti-hypertensives. Decrease lisinopril [...] tolerated tramadol and has had prescriptions for [place] as in the past. Order patient [place] as p.r.n.. Patient recently had a STEMI in March and is currently on aspirin and Brilinta will have to avoid NSAIDs for now. Assessment & Plan (06/21/2018 12:56 PM CDT): Acute, Worsening, Pt needs I and D and IV antibiotics Pt going to ER now ( [facility] ) Acute pain of right knee 05/04/2018 Assessment & Plan (05/04/2018 3:09 PM GROCERY BUYER): Will obtain x-ray. Taking tylenol for pain. Asking for something stronger. Referral to Dr. Bunch, [facility] per pt request. ST elevation myocardial [...] 10/09/2017 Assessment & Plan (03/21/2017 1:26 AM GROCERY BUYER): The patient was started on the Rocephin [...]
--- OUTSIDE RECORDS SUMMARY | 2024-07-25 15:07 | XMS_ITS | Clinical Summary ---
Author Organization [facility] Address [address] [place] [address] Care Team Providers Care Bit Gatherer Name Role Phone Unavailable Primary Care Provider Unavailabl e Source Comments [facility],non-owned Affiliates and Associated Physician Practices is amultiple site organization consisting of ambulatory clinics and hospital sitesin [place], [place], [place] and [place]. This disclosure is being madepursuant to the Care Everywhere program and may not contain all information available regarding this patient. Last updated 17.[facility] Social History Tobacco Use Types Packs/Day Years Used Date Smoking Tobacco: Never Assessed Comments Unknown Sex and Gender Information Value Date Recorded Sex Assigned at Not on file Legal Sex Female 6:24 PM CARETAKER RESORT Gender Identity Not on file Sexual Orientation [...]
--- OUTSIDE RECORDS SUMMARY | 2024-07-25 15:07 | XMS_ITS | Encounter Summary ---
Author Organization [facility] Address [address] [place] [address] Phone Care Team Providers Care Hadoop Admin Name Role Phone Hank Seymour MD Unavailable [phone] Sandip Murphy MD Unavailable [phone] Sony Patel MD Unavailable + Mariah Rose MD Unavailable [phone] Con Pete MD, Merrill Unavailable [phone] Natalia Vang DO Primary Care Provider Urban To APRN, CNP Unavailable [phone] Reason for Visit * Reason Onset Date Comments Medication Refill 03/25/2023 Encounter Details Date Type Department Care Team (Late st Contact Info) Description 03/25/2023 Refill [facility] [address] [place] [address] Zack Mccullough, PAC [address] [place], [place] [id number] Medication Refill Social History Tobacco Use Types [...] Primary documented in this encounter Care Teams Hadoop Admin Relationship Specialty Start Date End Date Natalia Vang DO [address] [address] PCP - General Family Medicine 07/20/20 Hank Seymour MD Consulting Physician Radiation Oncology 07/31/15 Sandip Murphy MD Consulting Physician General Surgery 07/31/15 Sony Patel MD [address] [address] Consulting Physician Endocrinology 07/31/15 Mariah Rose MD [address] [place] [address] Consulting Physician Wound Care 07/31/15 Merrill Andujar Jr., MD [facility] [place] [address] Consulting Physician Oncology 07/31/15 Urban To APRN, FIRE BOAT ENGINEER [address] [place] [address] Nurse Practitioner Advanced Practice Nurse 03/28/23 documented as of this encounter
--- OUTSIDE RECORDS SUMMARY | 2024-07-25 15:07 | XMS_ITS | Encounter Summary ---
Author Organization [facility] Address [address] [place] [address] Care Team Providers Care Rental Agent Name Role Phone Devaughn Bazan DO Unavailable Natalia Vang DO Primary Care Provider [phone] Naun Georges MD Unavailable [phone] Frankie Bright MD Unavailable [phone] Di Demarco MD Unavailable [phone] Thomas Ordoñez MD Unavailable Anne Marie Platt [facility] Unavailable [phone] Naun Georges MD Unavailable [phone] Mendez Shine RN Unavailable [phone] Joseph Mccullough MD Unavailable [phone] Faith Hamm NP Primary Care Provider [phone] Encounter Details Date Type Department Care Team (Late st Contact Info) Description 03/26/2021 Telephone [facility] [address] [place] [address] Radha Miller, RN Social History Tobacco Use [...] on file Legal Sex Female 5:37 PM VETERINARY MEAT INSPECTOR Gender Identity Not on file Sexual Orientation Not on file documented as of this encounter Plan of Treatment Not on file documented as of this encounter Goals Goal Patient Goal Type Associated Problems Recent Progress Patient-Stated? Author [facility] Improving(03/2022 12:53 PM VETERINARY MEAT INSPECTOR) No Betty Elizabeth, CIRA Note: Patient will establish a comfort-function goal and identify the pain level that will allow the patient to perform desired activities and achieve an acceptable quality of life. documented as of this encounter Visit Diagnoses Not on filedocumented in this encounter Additional Health Concerns Infection Onset Date Last Indicated Resolved Time COVID: Suspected 05/03/2021 05/03/2021 05/04/2021 3:05 AM VETERINARY MEAT INSPECTOR COVID: Suspected 05/03/2021 05/03/2021 05/04/2021 7:39 PM VETERINARY MEAT INSPECTOR COVID: Suspected 12/30/2022 12/30/2022 12/30/2022 10:47 AM CDT documented as of this encounter Care Teams Rental Agent Relationship Specialty Start Date End Date Natalia Vang DO PCP - General Family Medicine 10/09/17 10/15/23 Faith Hamm NP [address] [facility] [address] [place] [address] PCP - General Family Medicine 10/16/23 Devaughn Bazan DO Surgeon Otolaryngology 03/26/17 11/09/23 [place] [address] [place] [address] Consulting Physician Endocrinology 03/29/18 [place] [address] [address] Anesthesiologist Pain Management 10/20/19 11/09/23 [place] [address] [address] Consulting Physician Nephrology 02/27/21 Thomas Ordoñez MD [address] [facility] [address] Consulting Physician Medical Oncology 05/22/21 Anne Marie Platt, [address] [address] Pharmacist Pharmacy 08/23/21 08/25/21 [place] [address] [address] Consulting Physician Endocrinology 12/15/22 11/09/23 Mendez Shine RN [address] [place] [address] [address] Chairman Ceo 03/06/23 04/12/23 Joseph Mccullough MD [address] [place] [address] [address] Consulting Physician Gastroenterology 03/19/23 documented as of this encounter
--- OUTSIDE RECORDS SUMMARY | 2024-07-25 15:07 | XMS_ITS | Encounter Summary ---
Author Organization [facility] Healthcare Address [address] [place] [address] Care Team Providers Care Learning And Development Intern Name Role Phone Devaughn Bazan DO Unavailable Natalia Vang DO Primary Care Provider [phone] Naun Georges MD Unavailable [phone] Frankie Bright MD Unavailable [phone] Di Demarco MD Unavailable [phone] Thomas Ordoñez MD Unavailable Anne Marie lPatt [facility] Unavailable [phone] Naun Georges MD Unavailable [phone] Mendez Shine RN Unavailable [phone] Joseph Mccullough MD Unavailable [phone] Faith Hamm NP Primary Care Provider [phone] Reason for Visit * Reason Onset Date Comments Scheduling Appointments 04/18/2020 Appt. re minder; no answer Encounter Details Date Type Department Care Team (Late st Contact Info) Description 04/18/2020 Telephone [facility] [address] [place] [id number] Renata Wong RT Scheduling Appointments (Appt. reminder; [...] on file Legal Sex Female 5:37 PM ENTRY LEVEL RECRUITER Gender Identity Not on file Sexual Orientation Not on file documented as of this encounter Plan of Treatment Not on file documented as of this encounter Goals Goal Patient Goal Type Associated Problems Recent Progress Patient-Stated? Author [facility] Improving(03/2022 12:53 PM ENTRY LEVEL RECRUITER) No Betty Elizabeth RN Note: Patient will [...] COVID: Suspected 05/03/2021 05/03/2021 05/04/2021 3:05 AM ENTRY LEVEL RECRUITER COVID: Suspected 05/03/2021 05/03/2021 05/04/2021 7:39 PM ENTRY LEVEL RECRUITER COVID: Suspected 12/30/2022 12/30/2022 12/30/2022 10:47 AM CDT documented as of this encounter Care Teams Learning And Development Intern Relationship Specialty Start Date End Date Natalia Vang DO PCP - General Family Medicine 10/09/17 10/15/23 Faith Hamm NP [address] [address] PCP - General Family Medicine 10/16/23 Devaughn Bazan DO Surgeon Otolaryngology 03/26/17 11/09/23 [place] [id number] [address] Consulting Physician Endocrinology 03/29/18 [place] [address] [address] [place] [id number] Anesthesiologist Pain Management 10/20/19 11/09/23 [place] [address] [address] Consulting Physician Nephrology 02/27/21 Thomas Ordoñez MD [address] [facility] [address] Consulting Physician Medical Oncology 05/22/21 Anne Marie Platt, [address] [place] [id number] Pharmacist Pharmacy 08/23/21 08/25/21 [place] [address] [address] [address] Consulting Physician Endocrinology 12/15/22 11/09/23 Mendez Shine, [address] [place] [address] [address] Video Recorder Mechanic 03/06/23 04/12/23 Joseph Mccullough MD [address] [place] [address] [facility] [address] [place] [address] Consulting Physician Gastroenterology 03/19/23 documented as of this encounter
--- NOTE | 2024-07-25 15:08 | ED.FEMALEGU ---
HPI - Female Genitourinary General Chief complaint: Urogenital-Female Stated complaint: prolapsed bladder, requests barone catheter Time Seen by Provider: 07/25/24 18:01 Focused HPI: 89-year-old female with history of hyperlipidemia, hypertension, insulin-dependent diabetes presents with daughter at bedside for multiple medical complaints. Patient states she has increasing lower extremity edema, right greater than left with a wound that opened to the posterior distal leg about 2-3 weeks ago. She has been following with Wound Care but states the wound is continue to weep and now has redness around the region. She is concerned she has cellulitis. She states she has not been taking her diuretics because she has a prolapsed bladder that constantly leaks and causes her discomfort. She had 2 pessaries placed by her OBGYN but unfortunately these fell about 3 months ago. She is scheduled to see Dr. Nickerson for follow-up on August 08. She states she did have a catheter in place to help drain her bladder which was helpful, however when this was removed several months ago so she stopped taking her diuretic due to discomfort from the incontinence and prolapsed bladder. She denies chest pain or shortness of breath, fever. She also notes a sore that has developed to her buttock from her urinary incontinence. GENERAL: Well-appearing, well-nourished, and in no acute distress. HEAD: Normocephalic, atraumatic. CHEST: Clear to auscultation. ?No respiratory distress. EXT: 4+ pitting edema to bilateral lower extremities, R>L, with a approximately 3 cm stage 2 ulceration to the posterior distal ankle actively weeping yellow drainage with surrounding warmth, erythema and tenderness. No crepitus. HEART: Regular rate and rhythm.? NEURO: ?Alert and oriented x3. Patient screened in triage and initial orders placed.? ?Additional care and disposition to be based upon?diagnostic testing and treatment. Related Data Home Medications ?Medication ?Instructions ?Recorded ?Confirmed ?Last Taken ?Type carvedilol 6.25 mg tablet 6.25 mg PO BID 04/08/19 09/06/20 Unknown History insulin aspart U-100 100 unit/mL 3 unit subcut TID 04/08/19 09/06/20 Unknown History (3 mL) subcutaneous pen (Novolog FlexPen U-100 Insulin aspart) insulin glargine U-300 conc 300 20 unit subcut DAILY 04/08/19 09/06/20 Unknown History unit/mL (1.5 mL) subcutaneous pen (Nasirushira SolMegar U-300 Insulin) rosuvastatin 40 mg tablet 40 mg PO DAILY 04/08/19 09/06/20 Unknown History tramadol 50 mg tablet 50 mg PO HS 04/08/19 09/06/20 Unknown History aspirin 81 mg tablet,delayed 81 mg PO DAILY 09/04/20 09/06/20 Unknown History release (Adult Low Dose Aspirin) duloxetine 30 mg capsule,delayed 30 mg PO DAILY 09/04/20 09/06/20 Unknown History release lisinopril 2.5 mg tablet 2.5 mg PO DAILY 09/04/20 09/06/20 Unknown History Allergies Allergy/AdvReac Type Severity Reaction Status Date / Time codeine Allergy Unknown Chest Pain Verified 07/25/24 14:24 Penicillins Allergy Unknown Rash Verified 07/25/24 14:24 REPLACED BY [facility] Past Medical History Medical History Breast cancer Myocardial infarct 2019 Hypercholesteremia Diabetes Surgical History Surgical History History of lumpectomy of right breast History of cardiac catheterization Family History Family History Sibling Family history of arthritis Family history of lung cancer Diabetes mellitus Heart disease Father , Motor vehicle accident Alcoholism Mother , at the age of 96 Hypercholesteremia Social History Social History Smoking status: Never smoker Tobacco type: cigarettes Second hand tobacco smoke exposure: No Alcohol intake: current Substance use: never Living arrangements: with family Additional living arrangements comments: grandson lives in second-floor part of home Occupation/Education: retired Gender identity (if verbalized by the patient): Female Sexual Orientation (if Verbalized by the Patient): Straight or Heterosexual Course Vital Signs Vital signs: Vital Signs Pulse Oximetry 98 07/25/24 17:29 Temperature 98.5 F 07/25/24 19:05 Pulse Rate 80 07/25/24 19:05 Respiratory Rate 15 07/25/24 19:05 Blood Pressure 185/91 H 07/25/24 19:04 Pulse Oximetry 99 07/25/24 19:05 MDM - Female Genitourinary Lab Data 07/25/24 17:05 07/25/24 17:05 Labs: Lab Results 07/25/24 07/25/24 Range/Units 17:05 17:45 WBC 10.3 H (4.5-10.0) K/mm3 RBC 4.15 L (4.2-5.4) M/mm3 Hgb 11.6 L (12.0-15.0) g/dL Hct 37.5 (37.0-47.0) % MCV 90.4 (80-100) fl MCH 28.0 (26-34) pg MCHC 30.9 L (32-36) g/dl RDW 14.3 (11.5-14.5) % Plt Count 192 (150-375) k/mm3 MPV 11.0 H (7.4-10.4) fl Immature Gran % (Auto) 0.2 (0-0.5) % Neut % (Auto) 59.1 (45.5-73.1) % Lymph % (Auto) 29.9 (18.3-44.2) % [place] % (Auto) 9.2 H (2.6-8.5) % Eos % (Auto) 1.2 (0-4.4) % Baso % (Auto) 0.4 (0.2-1.2) % Lymph # (Auto) 3.08 (0.9-3.2) K/mm3 [place] # (Auto) 1.0 H (0.1-0.6) K/mm3 Eos # (Auto) 0.1 (0-0.3) K/mm3 Baso # (Auto) 0.0 (0.0-0.1) K/mm3 Abs Immat Gran (auto) 0.02 (0.00-0.031) K/mm3 Absolute Neuts (auto) 6.1 (1.3-6.7) K/mm3 Absolute Nucleated RBC 0.000 (0.0-0.012) K/mm3 Nucleated RBC % 0.0 (0.0-0.2) % PT 14.2 (11.1-14.7) Seconds INR 1.1 APTT 34.7 (22.3-36.8) Seconds Sodium 135 L (137-145) mmol/L Potassium 4.4 (3.4-5.0) mmol/L Chloride 103 (98-107) mmol/L Carbon Dioxide 23 (22-30) mmol/L Anion Gap 9 (4-12) mmol/L BUN 37 H (7-17) mg/dL Creatinine 1.44 H (0.7-1.0) mg/dL Estim Creat Clear Calc 20 ml/min Estimated GFR 34 L (59 - ) Glucose 184 H (65-110) mg/dL Lactic Acid 0.9 (0.7-2.0) mmol/L Calcium 9.3 (8.4-10.2) mg/dL Total Bilirubin 0.6 (0.2-1.3) mg/dL AST 37 H (14-36) U/L ALT 19 (6-35) U/L Alkaline Phosphatase 51 (38-126) U/L NT-Pro-B Natriuret Pep 2550 H (19.9-100) pg/mL Total Protein 8.0 (6.3-8.2) g/dL Albumin 4.2 (3.5-5.1) g/dL Urine Color Yellow (Yellow) Urine Appearance Cloudy H (Clear) Urine pH 6.0 (5.0-9.0) Ur Specific [place] 1.009 (1.001-1.035) Urine Protein 2+ H (Negative) mg/dL Urine Glucose (UA) Negative (Negative) mg/dL Urine Ketones Negative (Negative) mg/dL Ur Blood (Man) 1+ H (Negative) Urine Nitrate Negative (Negative) Urine Bilirubin Negative (Negative) Urine Urobilinogen 0.2 (<2.0) mg/dL Leukocyte Esterase Rfl 3+ H (Negative) LASHAY/UL Urine RBC 0-2 (0-2) /hpf Urine WBC >100 H (0-3) /hpf Ur Squamous Epith Cells None seen (Few) /hpf Urine Bacteria None seen /hpf Urine Casts 0-2 Hyaline Casts Present (None) /lpf Discharge Plan Discharge Clinical Impression: Bladder prolapse, female, acquired, Encounter for Barone catheter replacement Patient Disposition: Home Condition: Stable Instructions: Barone Catheter Placement and Care (ED) Additional Instructions: Return if symptoms are worsening , call your family physician/Dr. nickerson for appointment, take Tylenol as as needed for aches and pain, continue home medications. Patient Language: Serbian Prescriptions: No Action prednisone 20 mg tablet 40 mg PO DAILY 5 Days Qty: 10 0RF doxycycline monohydrate 100 mg tablet 100 mg PO BID 7 Days Qty: 14 0RF benzonatate [Tessalon Perles] 100 mg capsule 100 mg PO BID PRN (Reason: cough) Qty: 14 0RF insulin aspart U-100 [Novolog FlexPen U-100 Insulin] 100 unit/mL (3 mL) Insulin Pen 3 unit SUBCUT TID carvedilol 6.25 mg Tablet 6.25 mg PO BID tramadol 50 mg Tablet 50 mg PO HS rosuvastatin 40 mg Tablet 40 mg PO DAILY Toujeo SoloStar U-300 Insulin 300 unit/mL (1.5 mL) Insulin Pen 20 unit SUBCUT DAILY lisinopril 2.5 mg tablet 2.5 mg PO DAILY duloxetine 30 mg capsule,delayed release(DR/EC) 30 mg PO DAILY aspirin [Adult Low Dose Aspirin] 81 mg tablet,delayed release (DR/EC) 81 mg PO DAILY fluticasone propionate [Flonase Allergy Relief] 50 mcg/actuation spray,suspension 1 - 2 spray intranasal BID Qty: 16 3RF Rx Instructions: administer into each nostril Follow-up/Referrals: Arie Nickerson MD [Physician] - 07/27/24 Noris,Faith Kamara CNP [Primary Care Provider] -
[2024-07-25 17:14] LABS: Basophils Percent Auto 0.4 % (0.2-1.2); Eosinophils Absolute Auto 0.1 K/mm3 (0-0.3); Eosinophils Percent Auto 1.2 % (0-4.4); Hematocrit 37.5 % (37.0-47.0); Hemoglobin 11.6 g/dL (12.0-15.0); Immature Granulocyte Absolute 0.02 K/mm3 (0.00-0.031); Immature Granulocyte Percent A 0.2 % (0-0.5); Lymphocytes Absolute Auto 3.08 K/mm3 (0.9-3.2); Lymphocytes Percent Auto 29.9 % (18.3-44.2); Mean Corpuscular HGB Conc 30.9 g/dl (32-36); Mean Corpuscular Volume 90.4 fl (80-100); Monocytes Percent Auto 9.2 % (2.6-8.5); Neutrophils Absolute Auto 6.1 K/mm3 (1.3-6.7); Neutrophils Percent Auto 59.1 % (45.5-73.1); Platelet Count Result 192 k/mm3 (150-375); Red Blood Count 4.15 M/mm3 (4.2-5.4); Red Cell Distribution Width 14.3 % (11.5-14.5); White Blood Count 10.3 K/mm3 (4.5-10.0)
[2024-07-25 17:23] LABS: Lactic Acid Reflex 0.9 mmol/L (0.7-2.0)
[2024-07-25 17:24] LABS: Alanine Aminotransferase 19 U/L (6-35); Albumin Level 4.2 g/dL (3.5-5.1); Alkaline Phosphatase 51 U/L (38-126); Anion Gap 9 mmol/L (4-12); Aspartate Amino Transferase 37 U/L (14-36); Bilirubin,Total 0.6 mg/dL (0.2-1.3); Blood Urea Nitrogen 37 mg/dL (7-17); Calcium 9.3 mg/dL (8.4-10.2); Carbon Dioxide 23 mmol/L (22-30); Chloride 103 mmol/L (98-107); Estimated CRCL calculation 20 ml/min; Estimated Glomerular Filt Rate 34; Glucose 184 mg/dL (65-110); Potassium 4.4 mmol/L (3.4-5.0); Sodium 135 mmol/L (137-145)
[2024-07-25 17:28] LABS: INR 1.1; Prothrombin Time 14.2 Seconds (11.1-14.7)
[2024-07-25 17:29] LABS: Partial Thromboplastin Time 34.7 Seconds (22.3-36.8)
[2024-07-25 17:33] LABS: NT Pro B Type Natriuretic Pept 2550 pg/mL (19.9-100)
--- NOTE | 2024-07-25 17:50 | PC.NURSE ---
Pt reporting leg cramps since laying in bed, reports needing to sit up, refusing to lie with legs up in bed currently. Pt repositioned to sitting on bed with legs dangling on side for comfort with call light in reach, pt a&ox4 agrees to use call light for help, family at bedside.
[2024-07-25 18:07] LABS: Add Urine Microscopic? YES; Appearance Urine Cloudy (Clear); Bacteria Urine None Seen /hpf; Bilirubin Urine Negative (Negative); Blood Urine 1+ (Negative); Color Urine Yellow (Yellow); Glucose Urine UA Negative (Negative); Hyaline Casts Urine Present /lpf; Ketones Urine Negative (Negative); Leukocyte Esterase Ur 3+ LEU/UL (Negative); Nitrate Urine Negative (Negative); Non Pathogenic Casts 0-2; Protein Urine 2+ mg/dL (Negative); RBC Urine 0-2 /hpf (0-2); Specific Grav Ur 1.009 (1.001-1.035); Squamous Epithelial Cell Urine None Seen /hpf (Few); Urobilinogen Urine 0.2 mg/dL (<2.0); WBC Urine >100 /hpf (0-3)
--- NOTE | 2024-07-25 18:08 | ED_ITS ---
HPI - Female Genitourinary General Chief complaint: Urogenital-Female Stated complaint: prolapsed bladder, requests barone catheter Time Seen by Provider: 07/25/24 18:01 Source: patient Mode of arrival: ambulatory Limitations: no limitations History of Present Illness HPI Narrative: 89 years old white female came to the ED from home by private car complaining of bladder prolapse, for the last 8 months, urine is leaking through the dependent and affecting her leg ulceration which causing delayed healing. Patient is telling me that she had bladder prolapse for 8 months, staff Barone catheter, removed by Dr. Land 3 months ago to try vaginal pessary without success twice. Patient is scheduled to see Dr. Nickerson the urologist on August 08. Would like to have a Barone catheter back again to avoid contaminated leg ulcer from leaking urine. Related Data Home Medications ?Medication ?Instructions ?Recorded ?Confirmed ?Last Taken ?Type carvedilol 6.25 mg tablet 6.25 mg PO BID 04/08/19 09/06/20 Unknown History insulin aspart U-100 100 unit/mL 3 unit subcut TID 04/08/19 09/06/20 Unknown History (3 mL) subcutaneous pen (Novolog FlexPen U-100 Insulin aspart) insulin glargine U-300 conc 300 20 unit subcut DAILY 04/08/19 09/06/20 Unknown History unit/mL (1.5 mL) subcutaneous pen (Toujeo SoloStar U-300 Insulin) rosuvastatin 40 mg tablet 40 mg PO DAILY 04/08/19 09/06/20 Unknown History tramadol 50 mg tablet 50 mg PO HS 04/08/19 09/06/20 Unknown History aspirin 81 mg tablet,delayed 81 mg PO DAILY 09/04/20 09/06/20 Unknown History release (Adult Low Dose Aspirin) duloxetine 30 mg capsule,delayed 30 mg PO DAILY 09/04/20 09/06/20 Unknown History release lisinopril 2.5 mg tablet 2.5 mg PO DAILY 09/04/20 09/06/20 Unknown History Allergies Allergy/AdvReac Type Severity Reaction Status Date / Time codeine Allergy Unknown Chest Pain Verified 07/25/24 14:24 Penicillins Allergy Unknown Rash Verified 07/25/24 14:24 Review of Systems 2 Review of Systems: All systems reviewed & are unremarkable except as noted in HPI and below PMFSH Past Medical History Medical History Breast cancer Myocardial infarct 2019 Hypercholesteremia Diabetes Surgical History Surgical History History of lumpectomy of right breast History of cardiac catheterization Family History Family History Sibling Family history of arthritis Family history of lung cancer Diabetes mellitus Heart disease Father , Motor vehicle accident Alcoholism Mother , at the age of 96 Hypercholesteremia Social History Social History Smoking status: Never smoker Tobacco type: cigarettes Second hand tobacco smoke exposure: No Alcohol intake: current Substance use: never Living arrangements: with family Additional living arrangements comments: grandson lives in second-floor part of home Occupation/Education: retired Gender identity (if verbalized by the patient): Female Sexual Orientation (if Verbalized by the Patient): Straight or Heterosexual Exam 2 Narrative: General appearance: Well-developed, well-nourished Skin: Normal color Head: Normocephalic, nontraumatic Eyes: Clear conjunctiva ENT: Oropharynx normal, ears normal, nose normal Neck: Supple, nontender Chest and respiratory: Airway patent, no respiratory distress, no accessory muscle use Heart: Regular rate/rhythm Abdomen: Soft, nontender, no organomegaly, quiet bowel sounds, Vaginal exam showing small no ulceration, no bleeding, no discharge, no erythema Vascular: Normal peripheral pulses, normal capillary refill. Musculoskeletal: Right lower leg and foot ulceration, healing, no erythema, no discharge Neurologic: Alert and oriented ?3, HEEL STIFFENER is normal as tested, no gross motor deficit Course Consultations Consultation #1: dr land Agreed with Barone catheter placement until she see a urologist August 08 Date: 07/25/24 Vital Signs Vital signs: Vital Signs Pulse Rate 78 07/25/24 17:47 Respiratory Rate 20 07/25/24 17:47 Blood Pressure 178/99 H 07/25/24 17:47 Pulse Oximetry 98 07/25/24 17:47 Pulse Rate 78 07/25/24 17:47 Respiratory Rate 20 07/25/24 17:47 Blood Pressure 178/99 H 05/26/25 17:47 Pulse Oximetry 98 07/25/24 17:47 MDM - Female Genitourinary MDM Narrative Medical decision making narrative: History of bladder prolapse, used to have Barone catheter 3 months ago, patient requested Barone catheter placement because urine leaking and affecting her leg ulcers. Barone catheter placed, discussed with Dr. land Lab Data 07/25/24 17:05 07/25/24 17:05 Labs: Lab Results 07/25/24 07/25/24 Range/Units 17:05 17:45 WBC 10.3 H (4.5-10.0) K/mm3 RBC 4.15 L (4.2-5.4) M/mm3 Hgb 11.6 L (12.0-15.0) g/dL Hct 37.5 (37.0-47.0) % MCV 90.4 (80-100) fl MCH 28.0 (26-34) pg MCHC 30.9 L (32-36) g/dl RDW 14.3 (11.5-14.5) % Plt Count 192 (150-375) k/mm3 MPV 11.0 H (7.4-10.4) fl Immature Gran % (Auto) 0.2 (0-0.5) % Neut % (Auto) 59.1 (45.5-73.1) % Lymph % (Auto) 29.9 (18.3-44.2) % [place] % (Auto) 9.2 H (2.6-8.5) % Eos % (Auto) 1.2 (0-4.4) % Baso % (Auto) 0.4 (0.2-1.2) % Lymph # (Auto) 3.08 (0.9-3.2) K/mm3 [place] # (Auto) 1.0 H (0.1-0.6) K/mm3 Eos # (Auto) 0.1 (0-0.3) K/mm3 Baso # (Auto) 0.0 (0.0-0.1) K/mm3 Abs Immat Gran (auto) 0.02 (0.00-0.031) K/mm3 Absolute Neuts (auto) 6.1 (1.3-6.7) K/mm3 Absolute Nucleated RBC 0.000 (0.0-0.012) K/mm3 Nucleated RBC % 0.0 (0.0-0.2) % PT 14.2 (11.1-14.7) Seconds INR 1.1 APTT 34.7 (22.3-36.8) Seconds Sodium 135 L (137-145) mmol/L Potassium 4.4 (3.4-5.0) mmol/L Chloride 103 (98-107) mmol/L Carbon Dioxide 23 (22-30) mmol/L Anion Gap 9 (4-12) mmol/L BUN 37 H (7-17) mg/dL Creatinine 1.44 H (0.7-1.0) mg/dL Estim Creat Clear Calc 20 ml/min Estimated GFR 34 L (59 - ) Glucose 184 H (65-110) mg/dL Lactic Acid 0.9 (0.7-2.0) mmol/L Calcium 9.3 (8.4-10.2) mg/dL Total Bilirubin 0.6 (0.2-1.3) mg/dL AST 37 H (14-36) U/L ALT 19 (6-35) U/L Alkaline Phosphatase 51 (38-126) U/L NT-Pro-B Natriuret Pep 2550 H (19.9-100) pg/mL Total Protein 8.0 (6.3-8.2) g/dL Albumin 4.2 (3.5-5.1) g/dL Urine Color Yellow (Yellow) Urine Appearance Cloudy H (Clear) Urine pH 6.0 (5.0-9.0) Ur Specific [place] 1.009 (1.001-1.035) Urine Protein 2+ H (Negative) mg/dL Urine Glucose (UA) Negative (Negative) mg/dL Urine Ketones Negative (Negative) mg/dL Ur Blood (Man) 1+ H (Negative) Urine Nitrate Negative (Negative) Urine Bilirubin Negative (Negative) Urine Urobilinogen 0.2 (<2.0) mg/dL Leukocyte Esterase Rfl 3+ H (Negative) LASHAY/UL Urine RBC 0-2 (0-2) /hpf Urine WBC >100 H (0-3) /hpf Ur Squamous Epith Cells None seen (Few) /hpf Urine Bacteria None seen /hpf Urine Casts 0-2 Hyaline Casts Present (None) /lpf Critical Care Time Critical Care Time Critical Care Time: No Discharge Plan Discharge Clinical Impression: Bladder prolapse, female, acquired, Encounter for Barone catheter replacement Patient Disposition: Home Condition: Stable Instructions: Barone Catheter Placement and Care (ED) Additional Instructions: Return if symptoms are worsening , call your family physician/Dr. nickerson for appointment, take Tylenol as as needed for aches and pain, continue home medications. Patient Language: Citizen Of [place] Prescriptions: No Action prednisone 20 mg tablet 40 mg PO DAILY 5 Days Qty: 10 0RF doxycycline monohydrate 100 mg tablet 100 mg PO BID 7 Days Qty: 14 0RF benzonatate [Tessalon Perles] 100 mg capsule 100 mg PO BID PRN (Reason: cough) Qty: 14 0RF insulin aspart U-100 [Novolog FlexPen U-100 Insulin] 100 unit/mL (3 mL) Insulin Pen 3 unit SUBCUT TID carvedilol 6.25 mg Tablet 6.25 mg PO BID tramadol 50 mg Tablet 50 mg PO HS rosuvastatin 40 mg Tablet 40 mg PO DAILY Toujeo SoloStar U-300 Insulin 300 unit/mL (1.5 mL) Insulin Pen 20 unit SUBCUT DAILY lisinopril 2.5 mg tablet 2.5 mg PO DAILY duloxetine 30 mg capsule,delayed release(DR/EC) 30 mg PO DAILY aspirin [Adult Low Dose Aspirin] 81 mg tablet,delayed release (DR/EC) 81 mg PO DAILY fluticasone propionate [Flonase Allergy Relief] 50 mcg/actuation spray,suspension 1 - 2 spray intranasal BID Qty: 16 3RF Rx Instructions: administer into each nostril Follow-up/Referrals: Arie Nickerson MD [Physician] - 07/27/24 Noris,Faith Kamara CNP [Primary Care Provider] -
== END 2024-07-25 19:19 | disposition home or self-care (01) ==
PROVIDERS: Physician Assistant; Emergency Provider Emergency Medicine; PCP Nurse Practitioner
DX: N81.10 Cystocele, unspecified (principal); L97.219 Non-pressure chronic ulcer of right calf with unspecified severity; L97.519 Non-pressure chronic ulcer of other part of right foot with unspecified severity; E11.9 Type 2 diabetes mellitus without complications; I25.2 Old myocardial infarction; E78.00 Pure hypercholesterolemia, unspecified; Z85.3 Personal history of malignant neoplasm of breast; Z79.4 Long term (current) use of insulin; Z79.899 Other long term (current) drug therapy; Z79.82 Long term (current) use of aspirin
CPT/HCPCS: 36415; 51702; 71045; 80053; 81001; 83605; 83880; 85025; 85610; 85730; 87077; 87086; 87186; 93005; 99283

== ENCOUNTER 2024-09-04 15:32 | Emergency (ER) | payer MEDICARE, SELFPAY ==
--- NOTE | ~2024-09-04 | XR_ITS ---
EXAMINATION: XR chest 2V Exam Date/Time: 09/04/2024 16:10 CDT HISTORY: cough Comparison: 07/25/2024. RESULT: Lines, tubes, and devices: Suture anchors over the stomach, possibly from prior G-tube. Lungs and pleura: Emphysematous/senescent change. Streaky bibasilar opacities, greater in the right lower lung. Mild bilateral costophrenic angle blunting. Cardiomediastinal silhouette: Stable. Other: No acute osseous or upper abdominal finding. Stable compression deformity at T11. IMPRESSION: Streaky bibasilar atelectasis/consolidation. Trace bilateral pleural effusions. Reviewed, dictated and finalized at location K.
--- OUTSIDE RECORDS SUMMARY | 2024-09-04 15:36 | XMS_ITS ---
Author Organization [facility] Address [address] [place] [address] Care Team Providers Care Artist Relationship Manager Name Role Phone Naun Georges MD Unavailable [phone] Di Demarco MD Unavailable [phone] Thomas Ordoñez MD Unavailable Joseph Mccullough MD Unavailable [phone] Faith Hamm NP Primary Care Provider [phone] Active Problems Problem Noted Date Diagnosed Date Pre-operative clearance 08/30/2024 Assessment & Plan (08/30/2024 8:14 PM CDT): Surgeon has ordered labs but not in EKG or chest x-ray. EKG and chest x-ray ordered with medical clearance for surgery pending those results. Orders: XR Chest PA Lateral 2 Views; Future ECG 12 lead; Future Vaginal vault prolapse 08/19/2024 Hyperglycemia 08/05/2024 Venous stasis ulcer of right calf limited to breakdown of skin without varicose veins 07/06/2024 Assessment & Plan (07/06/2024 7:00 PM CDT): Orders: Ambulatory referral to Wound Clinic; Future Cellulitis of right lower extremity 07/06/2024 Assessment & Plan (08/30/2024 8:14 PM CDT): Orders: Ambulatory referral to Home Health; Future Assessment & Plan (07/06/2024 7:00 PM CDT): Orders: Ambulatory referral to Wound Clinic; Future Encounter for Medicare annual wellness exam 01/01 Assessment & Plan (01/20/2024 8:47 PM PRINTING ASSISTANT): Annual Medicare wellness exam completed today. All [...] 04/09/2023 Assessment & Plan (04/09/2023 4:00 PM PRINTING ASSISTANT): Due to patient's current condition of odontoid fracture, and the fact that she has in a neck brace, she has increased risk for balance issues and falling. Patient would benefit from home physical therapy/occupational therapy. Both of these services were ordered during patient's hospital discharge planning. Dependent edema 04/07/2023 Assessment & Plan (07/06/2024 7:00 PM CDT): Assessment & Plan (04/08/2023 10:01 AM PRINTING ASSISTANT): Trial of low-dose furosemide. Encouraged use of compression stocking, elevated legs above heart when possible. Follow advise of PT/OT. H/O gastrointestinal hemorrhage 03/13/2023 Right adrenal mass 02/10/2023 Assessment & Plan (02/12/2023 1:47 PM PRINTING ASSISTANT): #Indeterminate hypoattenuating lesion within the left inferior [...] 2022 Assessment & Plan (04/08/2023 10:00 AM PRINTING ASSISTANT): Slowly improving, currently in a neck brace. Keep sidney appts with specialists. Assessment & Plan (02/16/2023 12:26 PM PRINTING ASSISTANT): # C2 type II odontoid fracture with epidural hematoma - NSGY Spine consult (Dr. Rodriguez) - CTA head/neck - no evidence of vascular injuries - Pain control - [place] at all times - Q4H NCs [...] the cervical spine -- Continue to wear [place] brace at all times Closed fracture of spinous process of thoracic v ertebra 02/09/2023 Assessment & Plan (02/09/2023 11:52 AM PRINTING ASSISTANT): T4 spinous process fx - PT/OT - Pain control At risk for inadequate oral intake 02/09/2023 Assessment & Plan (02/10/2023 1:33 PM PRINTING ASSISTANT): - Patient reports having poor intake due to throat pain/[place] - Supplements ordered - 02/10 re-educated patient on goal of at least 1 Ensure per mealtime Other closed displaced odontoid fracture, initia l encounter 02/08/2023 Ductal carcinoma of breast, right 04/11/2021 Recurrent malignant neoplasm of right breast 11/2021 Overview (09/18/2022): Assessment: Right breast invasive ductal cancer stage I A ER positive LA positive Lumpectomy plus radiation followed by anastrozole for 5 years. Second right breast cancer, invasive ductal with lobular features-04/09/2021 Grade 1 ER positive LA positive HER2 0 Ki-67 15% Shows simple [...] 02/07/2021 Assessment & Plan (02/07/2021 10:19 AM PRINTING ASSISTANT): Trial of famotidine. Abnormal mammogram of right [...] PM CDT): Advise to keep following with sports official Assessment & Plan (08/31/2020 5:39 PM CDT): [...] meds. Assessment & Plan (02/07/2021 10:17 AM PRINTING ASSISTANT): At baseline, cont current Rx meds. Assessment & Plan (08/31/2020 5:38 PM CDT): At baseline, cont current mgmt. Assessment & Plan (01/20/2020 12:54 PM PRINTING ASSISTANT): Occasional wheezing. Patient home nebulizer machine broke according to the patient. New prescription sent for another home nebulizer. Uses directed. Assessment & Plan (10/20/2019 1:46 PM CDT): Clinically improved, continue current meds. DDD (degenerative disc disease), lumbar 05/10/19 Assessment & Plan (01/20/2020 12:57 PM PRINTING ASSISTANT): Encouraged [id number] exercises as tolerated. Managed by pain management. Chronic left hip pain 05/10/2019 skilled nursing (current) use of opiate analgesic 01/30 History of coronary angioplasty with insertion o f stent 01/16/2019 Assessment & Plan (10/17/2023 7:59 PM CDT): Followed by cardiology Coronary artery disease of n ative artery of [place] heart with stable angina pectoris 06/22/2018 Assessment & Plan (02/17/2023 11:06 AM PRINTING ASSISTANT): # CAD # Hypertension - ASA 81 [...] medications. Assessment & Plan (01/20/2020 12:56 PM PRINTING ASSISTANT): He is asymptomatic. Continue current medications. Assessment [...] flonase. Assessment & Plan (02/07/2021 10:17 AM PRINTING ASSISTANT): Asymptomatic. Stable. Continue current prescription medications. Assessment & Plan (01/20/2020 12:54 PM PRINTING ASSISTANT): Stable. Cont. Current meds. Assessment & Plan [...] ENT Assessment & Plan (01/20/2020 12:55 PM PRINTING ASSISTANT): Asymptomatic. Managed by ENT. Assessment & Plan (01/16/2019 1:05 PM PRINTING ASSISTANT): Resolved. Assessment & Plan (08/05/2017 7:58 AM [...] understanding. Assessment & Plan (01/16/2019 1:04 PM PRINTING ASSISTANT): Stable, cont current meds. Assessment & Plan (06/01/2017 1:30 PM CDT): She needs diagnosis of asthma, she needs outpatient pulmonary function test and follow up with direct care professional. Also recommend ENT consultation due to sinus [...] 11/26/2016 Assessment & Plan (01/20/2020 12:57 PM PRINTING ASSISTANT): Stable. Managed by pain specialist. Assessment & Plan (10/20/2019 1:49 PM CDT): Managed by Pain specialists. Assessment & Plan (01/16/2019 1:05 PM PRINTING ASSISTANT): Pain controlled. Diabetic peripheral neuropathy 11/26/2016 Assessment & Plan (08/30/2024 8:14 PM CDT): Assessment & Plan (11/10/2023 10:44 AM CDT): Chronic problem. Reviewed foot care; needs to lotion daily. Aware to check feet nightly, not to go barefoot. Assessment & Plan (04/07/2023 11:25 AM PRINTING ASSISTANT): May be contributing to her balance issues, in addition to the fact that she recently broke her neck. Patient encouraged to be careful when trying to ambulate and ask for help when needed. Assessment & Plan (09/18/2022 7:31 PM CDT): Stable. Cont. Current prescription medications, gabapentin. Managed by Pain specialists. Assessment & Plan (01/20/2020 12:55 PM PRINTING ASSISTANT): Asymptomatic. Managed by Endocrinology. Assessment & Plan (01/16/2019 1:06 PM PRINTING ASSISTANT): Clinically improved. Assessment & Plan (06/22/2018 3:50 AM CDT): Patient follows with Dr. Fonseca and receives tramadol p.r.n.. Hold tramadol at this time as patient will be receiving Norcos. OA (osteoarthritis) 11/26/2016 Assessment & Plan (01/16/2019 1:05 PM PRINTING ASSISTANT): On tramadol. Polymyalgia rheumatica 11/26/2016 Assessment & Plan (09/18/2022 7:31 PM CDT): Stable. Cont. Current prescription medications, Tramadol, gabapentin, managed by Pain Specialist. Assessment & Plan (01/20/2020 12:57 PM PRINTING ASSISTANT): Stable. Managed by pain specialist. Assessment & Plan (10/20/2019 1:48 PM CDT): Managed by pain specialists. Assessment & Plan (01/16/2019 1:06 PM PRINTING ASSISTANT): On tramadol. Hyperlipidemia associated with type 2 diabetes macie rosales 05/21/2016 Overview (11/26/2016): Hyperlipidemia Assessment & Plan (11/10/2023 10:17 AM CDT): Chronic problem, at goal on current Rosuvastatin 40mg. Last lipid panel: 10/16/23 LDL=58, OL=654. No changes at this time. Assessment & Plan (10/17/2023 8:00 PM CDT): Continue to limit fats in diet and take atorvastatin 80 mg daily Assessment & Plan (02/09/2023 11:41 AM PRINTING ASSISTANT): - Rosuvastatin Assessment & Plan (12/15/2022 11:35 AM CDT): On statin therapy Tolerating well Assessment & Plan (09/18/2022 7:23 PM CDT): LDL at goal of less than 100, continue current prescription medications, rosuvastatin. Assessment & Plan (05/05/2022 11:55 AM PRINTING ASSISTANT): Chronic problem, at goal on current Rosuvastatin 40mg. Last lipid panel: 09/09/21 LDL=63, RE=064. No changes at this time. Assessment & Plan (10/27/2021 5:57 PM CDT): LDL at goal of less than 100, continue current prescription medications. Assessment & Plan (09/09/2021 11:32 AM CDT): On statin therapy Tolerating well Assessment & Plan (03/25/2021 1:30 PM PRINTING ASSISTANT): On statin therapy Tolerating well Assessment & Plan (02/07/2021 10:17 AM PRINTING ASSISTANT): LDL at goal of < 70. Cont current Rx meds. Assessment & Plan (11/19/2020 3:49 PM CDT): On statin therapy Tolerating well Assessment & Plan (01/20/2020 12:53 PM PRINTING ASSISTANT): Elevated. Low-cholesterol diet recommended. Continue current medications. Managed by Endocrinology. Assessment & Plan (10/20/2019 1:46 PM CDT): Low chol diet recommended. Cont current mgmt. Assessment & Plan (09/12/2019 10:29 PM CDT): On statin therapy Tolerating well Assessment & Plan (09/04/2018 5:13 PM CDT): On statin therapy Tolerating well Assessment & Plan (06/22/2018 3:47 AM CDT): Continue statin Assessment & Plan (04/27/2018 7:20 AM PRINTING ASSISTANT): Lipid abnormalities are worsening. Nutritional counseling was provided. and Pharmacotherapy as ordered. Lipids will be reassessed in 6 months. Assessment & Plan (02/07/2018 11:18 PM PRINTING ASSISTANT): Pt on statin therapy Tolerating well Assessment & Plan (10/10/2017 10:42 PM CDT): Lipid abnormalities are unchanged. Nutritional counseling was provided. and Pharmacotherapy as ordered. Lipids will be reassessed in 6 months. 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 Orders: Ambulatory referral to Wound Clinic; Future Assessment & Plan (02/09/2024 8:32 PM PRINTING ASSISTANT): eGFR 47 on 09/17/2023. Currently on lisinopril [...] exam Assessment & Plan (02/17/2023 3:04 PM PRINTING ASSISTANT): - Home regimen: Novolog slide, insulin glargine [...] come to examination room from [facility]. She was not aware of which medications her mother was on either. Assessment & Plan (05/05/2022 11:56 AM PRINTING ASSISTANT): Chronic problem, near goal. A1c slowly trending [...] months Assessment & Plan (03/25/2021 1:46 PM PRINTING ASSISTANT): Chronic, uncontrolled, improving slowly A1c today 8.7% [...] meds. Assessment & Plan (01/20/2020 12:53 PM PRINTING ASSISTANT): Uncontrolled. Managed by endocrinology. Patient encouraged to [...] months. Assessment & Plan (01/16/2019 1:03 PM PRINTING ASSISTANT): Managed by endocrinology. Assessment & Plan (09/04/2018 [...] now , they plan to go to [facility] Reminded to bring in blood sugar diary at next visit. Dietary recommendations for ADA diet. Regular aerobic exercise. Discussed ways to avoid symptomatic hypoglycemia. Discussed sick day management. Discussed foot care. Reminded to get yearly retinal exam. Diabetes will be reassessed in 2 weeks . Assessment & Plan (04/27/2018 7:20 AM PRINTING ASSISTANT): Diabetes is improving with treatment. - HbA1c [...] weeks. Assessment & Plan (02/07/2018 11:19 PM PRINTING ASSISTANT): Diabetes is worsening. Recent HbA1c 12/2017 - [...] month. Assessment & Plan (01/07/2018 5:29 PM PRINTING ASSISTANT): Diabetes is unchanged. Discussed foot care. Reminded to get yearly retinal exam. Keep sidney appt with new [employer]. Changed Levemir to Toujeo in an attempt to lower Rx costs for patient. Instructed her to take the forms for Levemir with her to her new [employer] it Toujeo was not more affordable. Assessment & Plan (10/10/2017 10:43 PM CDT): Diabetes is unchanged. Continue current treatment regimen. Reminded to bring in blood sugar diary at next visit. Dietary recommendations for ADA diet. Diabetes will be reassessed in 6 months. Assessment & Plan (03/21/2017 1:22 AM PRINTING ASSISTANT): Poorly controlled type 2 diabetes insulin dependent [...] home. Assessment & Plan (05/05/2022 11:42 AM PRINTING ASSISTANT): Chronic problem, well controlled on current carvedilol [...] appointment. Assessment & Plan (03/25/2021 1:30 PM PRINTING ASSISTANT): Hypertension is improving with treatment. Continue current treatment regimen. Dietary sodium restriction. Regular aerobic exercise. Blood pressure will be reassessed at the next regular appointment. Assessment & Plan (02/07/2021 10:15 AM PRINTING ASSISTANT): Clinically improved, continue current prescription medications. Assessment & Plan (11/19/2020 3:49 PM CDT): Hypertension is improving with treatment. Continue current treatment regimen. Dietary sodium restriction. Regular aerobic exercise. Blood pressure will be reassessed at the next regular appointment. Assessment & Plan (08/31/2020 5:37 PM CDT): BP remains within goal, keep sidney appt with sports official. Cont current mgmt. Assessment & Plan (10/20/2019 [...] monitor. Assessment & Plan (04/27/2018 7:20 AM PRINTING ASSISTANT): Hypertension is improving with treatment. Continue current treatment regimen. Dietary sodium restriction. Regular aerobic exercise. Blood pressure will be reassessed at the next regular appointment. Assessment & Plan (02/07/2018 11:18 PM PRINTING ASSISTANT): Hypertension is chronic, well controlled for pt [...] appointment. Assessment & Plan (03/21/2017 1:23 AM PRINTING ASSISTANT): Hypertension fairly controlled Will continue with home lisinopril Chronic diastolic congestive heart failure Assessment & Plan (09/18/2022 7:36 PM CDT): Patient and patient's daughter deny this condition. Reviewed most recent ECHO, results state normal left ventricular diastolic function. . Asked patient to re-establish care with cardiology. Patient is lost to follow up since her burn center nurse left town. Patient currently asymptomatic. Assessment & [...] 02/09/2023 Assessment & Plan (02/17/2023 2:44 PM PRINTING ASSISTANT): - 02/09 pending PT/OT, c spine xrays, okay to [facility] - 02/10 cspine xrays completed today, OT rec IRF, PT rec home w/ 24 hr supervision, referrals sent per CMnelson to [facility], lizabeth removed void check pending, continue to encourage Ensure intake - 02/11- Patient is medically stable for discharge, SW/CM updated. Discharge pending facility acceptance - 02/17 discharge Class 1 obesity due to exces s calories with serious comorbidity and body mass index (BMI) of 31.0 to 31.9 in adult 05/05/2022 11/10/2023 Assessment & Plan (05/05/2022 11:08 AM PRINTING ASSISTANT): Discussed healthy diet and importance of regular physical activity (20- 30min/day, 150min/wk). 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 Assessment & Plan (03/25/2021 1:53 PM PRINTING ASSISTANT): Advised to follow up with [employer] Pt has appt on apr 02 2021 Gave instructions for local wound care Acute hypoxemic respiratory failure 04/27/2019 10/20/2019 Acute lower respiratory tract infection 04/27/2019 07/01/2019 BMI 27.0-27.9,adult 01/14/2019 04/21/19 23 Assessment & Plan (11/18/2019 1:40 PM CDT): Healthy, low carbohydrate lifestyle and exercise Dizziness 01/14/2019 10/20/2019 Assessment & Plan (01/16/2019 1:03 PM PRINTING ASSISTANT): May be secondary to anti-hypertensives. Decrease lisinopril [...] tolerated tramadol and has had prescriptions for [place] as in the past. Order patient [place] as p.r.n.. Patient recently had a STEMI in March and is currently on aspirin and Brilinta will have to avoid NSAIDs for now. Assessment & Plan (06/21/2018 12:56 PM CDT): Acute, Worsening, Pt needs I and D and IV antibiotics Pt going to ER now ( [facility] ) Acute pain of right knee 05/04/2018 Assessment & Plan (05/04/2018 3:09 PM PRINTING ASSISTANT): Will obtain x-ray. Taking tylenol for pain. Asking for something stronger. Referral to Dr. Bunch, [facility] per pt request. ST elevation myocardial infa [...] 10/09/2017 Assessment & Plan (03/21/2017 1:26 AM PRINTING ASSISTANT): The patient was started on the Rocephin [...]
--- OUTSIDE RECORDS SUMMARY | 2024-09-04 15:36 | XMS_ITS | Referral Summary ---
Author Organization [facility] Address [address] [place] [address] Care Team Providers Care Manager Transplant Name Role Phone Naun Georges MD Unavailable [phone] Di Demarco MD Unavailable [phone] Thomas Ordoñez MD Unavailable Joseph Mccullough MD Unavailable [phone] Faith Hamm NP Primary Care Provider [phone] Encounters Date Type Department Care Team Description 08/31/2024 Results Follow-Up [facility] [address] [place] [id number] Willie Rodríguez PA Urine culture Urine, indwelling catheter 08/31/2024 Results Follow-Up [facility] Primary Care at [address] [place] [phone] Faith Hamm NP ECG 12 lead 08/31/2024 1:20 PM CDT - 08/31/2024 11:59 PM CDT Hospital Encounter [facility] [address] [place] [address] Pre-operative clearance Discharge Disposition: Discharge to home or self care 08/31/2024 1:18 PM CDT - 08/31/2024 11:59 PM CDT Hospital Encounter [facility] [address] [place] [address] Pre-operative clearance Discharge Disposition: Discharge to home or self care 08/30/2024 Telephone [facility] Primary Care at [address] [phone] Faith Hamm NP Medical Question/Miscellaneous 08/30/2024 Telephone [facility] Home Care Services [address] [place] [address] [address] [place] [phone] Raysa Schmidt 08/30/2024 8:45 AM CDT Pre-Admission Testing [facility] Pre Anesthesia Testing [address] [place] [address] Preoperative testing (Primary Dx) 08/30/2024 11:30 AM CDT Office Visit [facility] Primary Care at [address] [phone] Faith Hamm NP Pre-operative clearance (Primary Dx); Diabetic peripheral neuropathy (HCC); Cellulitis of right lower extremity; Type 2 diabetes mellitus with stage 3a chronic kidney disease, with long-term current use of insulin (HCC) 08/29/2024 10:03 PM CDT - 08/29/2024 11:20 PM CDT Emergency [facility] Department [address] [place] [address] Jacob Monae MD Problem with Salmon catheter, initial encounter (Primary Dx); Acute cystitis with hematuria Discharge Disposition: Discharge to home or self care 08/25/2024 Telephone [facility] Primary Care at [address] [phone] Faith Hamm NP Additional Services Or Orders 08/17/2024 Telephone [facility] Primary Care at [address] [phone] Faith Hamm NP Appointment Request 08/15/2024 Telephone [facility] Primary Care at [address] [phone] Bertha Kelley MA 08/12/2024 4:35 PM CDT - 08/12/2024 11:59 PM CDT Hospital Encounter [facility] Emergency, Room R Discharge Disposition: Discharge to home or self care 08/04/2024 6:37 PM CDT - 08/12/2024 4:32 PM CDT Hospital Encounter [facility] [address] [place] [address] Sara Hastings MD Petters, MD Little Perez Nazanin, MD Quaizar, Huzaifa, MD Cellulitis of right lower extremity (Primary Dx); Hyperglycemia; Hyponatremia; Degeneration of intervertebral disc of lumbar region, unspecified whether pain present; Diabetic peripheral neuropathy (HCC) Discharge Disposition: Discharge to [facility] 08/09/2024 Results Follow-Up [facility] Primary Care at [address] [place] [address] Faith Hamm NP Comprehensive metabolic panel, CBC with auto differential, Sepsis Lactate w/ Reflex, Additional followed-up results: 57 08/04/2024 2:00 PM CDT Orders Only [facility] [address] [place] [address] 07/29/2024 9:00 AM CDT Orders Only [facility] [address] [place] [phone] PAD (peripheral artery disease) (Primary Dx); Multiple open wounds of left lower extremity, initial encounter 07/20/2024 9:00 AM CDT Orders Only [facility] [address] [place] [address] 07/13/2024 8:00 AM CDT Orders Only [facility] [address] [place] [address] Cellulitis of right lower extremity; Venous stasis ulcer of right calf limited to breakdown of skin without varicose veins (HCC); Type 2 diabetes mellitus with stage 3a chronic kidney disease, with long-term current use of insulin (HCC) 07/12/2024 3:19 PM CDT - 07/12/2024 11:59 PM CDT Hospital Encounter [facility] [address] [place] [address] [address], [place] [address] Thomas Washington MD Degeneration of intervertebral disc of lumbar region, unspecified whether pain present; Diabetic peripheral neuropathy (HCC) Discharge Disposition: Discharge to home or self care 07/06/2024 10:30 AM CDT Office Visit [facility] Primary Care at [address] [place] [phone] Faith Hamm NP Cellulitis of right lower extremity (Primary Dx); Dependent edema; Venous stasis ulcer of right calf limited to breakdown of skin without varicose veins (HCC); Type 2 diabetes mellitus with stage 3a chronic kidney disease, with long-term current use of insulin ([facility]) 07/04/2024 Nurse Triage [facility] Primary Care at [address] [place] [address] Faith Hamm NP 07/04/2024 10:15 AM CDT Office Visit [facility] Care at [place] [address] [place] [phone] Ronel Leung NP Leg swelling (Primary Dx); Dependent edema; Cellulitis of right lower extremity 06/20/2024 Telephone [facility] [address] [place] [address], [address] [place] [address] Shameka Ray NP from Last 3 Months Allergies Active Allergy Reactions Criticality Noted Date Comments Codeine Chest tightness Medium Has tolerated percocet Penicillins Rash Medium Per chart records, cefazolin, ceftriaxone, cefdinir, and cefepime have been given before Medications blood-glucose meter (CONTOUR NEXT METER) [facility] [place] Contour next meter test blood sugars two times every day DX:E11.65 insulin dependent 1 each 019 Active insulin syringe-needle U-100 0.5 mL 31 gauge x 5/16 syringeIndicat ions:Type 2 diabetes mellitus with hyperglycemia, with long-term current use of insulin ([facility]) One each 3 x daily for insulin administration 120 each 11 019 Active Advocate Lancing Device misc TEST 2 TIMES A DAY Active Comfort EZ Insulin Syringe 1 mL 31 gauge x 5/16 syringe USE TO INJECT 4 TIMES A DAY Active Easy Touch Lancets 28 gauge misc TEST 2 TIMES A DAY Active brimonidine (ALPHAGAN) 0.2 % ophthalmic solution Administer 1 drop into the left eye 2 (two) times a day Active polyvinyl alcohol-povido ne (REFRESH CLASSIC) 1.4-0.6 % dropperetteInd ications:Dry Eye Administer 1 drop into the right eye 3 (three) times a day as needed for dry eyes 023 Active pen needle, diabetic (Pen Needle) 31 gauge x 5/16 needleIndicati ons:Type 2 diabetes mellitus with hyperglycemia, with long-term current use of insulin ([facility]) Use to inject 4 times daily as directed. 400 each 1 Active semaglutide 0.25 mg or 0.5 mg (2 mg/3 mL) pen injector injectionIndic ations:type 2 diabetes mellitus Inject 0.25 mg under the skin once a week 9 mL 3 024 2024 Active furosemide (LASIX) 20 mg tablet Take 1 tablet (20 mg total) by mouth daily as needed (swelling in feet) 30 tablet 1 Active oxyCODONE (ROXICODONE) 5 mg immediate release tabletIndicati ons:Pain Take 1 tablet (5 mg total) by mouth nightly as needed for pain 30 tablet 025 2024 Active Contour Next Test Strips stripIndicatio ns:Type 2 diabetes mellitus with hyperglycemia, with long-term current use of insulin ([facility]) TEST BLOOD SUGAR FOUR TIMES DAILY 300 strip 4 Active ciprofloxacin (CIPRO) 500 mg tablet Take 1 tablet (500 mg total) by mouth daily for 7 days 7 tablet 025 2024 Active Additional Information Patient not taking.Reason: not started yet, Reported on 08/30/[address] (PROTONIX) 40 mg EC tablet Take 1 tablet (40 mg total) by mouth 2 (two) times a day Active calcium carbonate-stanford min D3 2,500 mg (1,000 mg elemental)-800 unit tablet Take 1 tablet by mouth nightly Active methocarbamoL (ROBAXIN) 500 mg tablet Take 1 tablet (500 mg total) by mouth 2 (two) times a day as needed for muscle spasms Active carvediloL (COREG) 6.25 mg tablet Take 1 tablet (6.25 mg total) by mouth 2 (two) times a day with meals Active polyethylene glycol (MIRALAX) 17 gram packetIndicati ons:constipati on Take 1 packet (17 g total) by mouth daily as needed for constipation Active docusate sodium (COLACE) 100 mg capsuleIndicat ions:constipat ion Take 1 capsule (100 mg total) by mouth 2 (two) times a day as needed for constipation Active fluticasone propionate (FLONASE) 50 mcg/actuation nasal spray Administer 1 spray into each nostril every morning Active insulin aspart (NovoLOG) 100 unit/mL (3 mL) pen for injection Inject 8-14 Units under the skin 2 (two) times a day with meals Active insulin glargine (TOUJEO) 300 unit/mL (1.5 mL) pen for injection Inject 30 Units under the skin nightly Active lisinopriL (PRINIVIL,ZEST RIL) 2.5 mg tablet Take 1 tablet (2.5 mg total) by mouth nightly Active rosuvastatin (CRESTOR) 40 mg tablet Take 1 tablet (40 mg total) by mouth nightly Active SantyL ointment 025 Active cetirizine (ZyrTEC) 10 mg tablet Take 1 tablet (10 mg total) by mouth every morning 90 tablet 3 025 Active calcium carbonate-stanford min D3 (CALCIUM 500 + D, D3,) 500 mg(1,250mg) -125 unit per tablet 0 0 017 2024 Discontinued(E rror) cetirizine (ZyrTEC) 10 mg tabletIndicati ons:Acute sinusitis, recurrence not specified, unspecified location Take 1 tablet (10 mg total) by mouth daily 90 tablet 023 2024 Discontinued(E rror) lidocaine (LIDODERM) 5 % Place 2 patches on the skin daily Remove & discard patch within 12 hours or as directed by MD. 023 2024 Discontinued(E rror) dorzolamide-ti moloL (COSOPT) 22.3-6.8 mg/mL ophthalmic solution Administer 1 drop into the left eye 2 (two) times a day 2024 Discontinued(E rror) magnesium hydroxide (MILK OF MAGNESIA) suspension 400 mg/5 mL as needed (Constipation) 2024 Discontinued(E rror) fluticasone propionate (FLONASE) 50 mcg/actuation nasal sprayIndicatio ns:Non-seasona l allergic rhinitis, unspecified trigger Administer 2 sprays into each nostril daily 3 each 3 024 2024 Discontinued(E rror) insulin aspart (NovoLOG) 100 unit/mL (3 mL) pen for injectionIndic ations:Type 2 diabetes mellitus with hyperglycemia, with long-term current use of insulin ([facility]) INJECT 8-14 UNITS UNDER SKIN 3 TIMES A DAY WITH MEALS. 15 mL 2 024 2024 Discontinued(E rror) insulin glargine (TOUJEO) 300 unit/mL (1.5 mL) pen for injectionIndic ations:type 2 diabetes mellitus Inject 30 Units under the skin daily 15 mL 3 024 2024 Discontinued(E rror) lisinopriL (PRINIVIL,ZEST RIL) 2.5 mg tabletIndicati ons:Hypertensi on associated with stage 3a chronic kidney disease due to type 2 diabetes mellitus (HCC),Type 2 diabetes mellitus with stage 3a chronic kidney disease, with long-term current use of insulin ([facility]) Take 1 tablet (2.5 mg total) by mouth daily 90 tablet 3 024 2024 Discontinued(E rror) rosuvastatin (CRESTOR) 40 mg tablet TAKE 1 TABLET BY MOUTH EVERY DAY AT NIGHT 100 tablet 1 025 2024 Discontinued(E rror) clotrimazole-b etamethasone (LOTRISONE) cream PLEASE SEE ATTACHED FOR DETAILED DIRECTIONS 025 2024 Discontinued(E rror) oxyCODONE (ROXICODONE) 5 mg immediate release tabletIndicati ons:Pain Take 1 tablet (5 mg total) by mouth nightly as needed for pain 30 tablet 025 2024 Discontinued(S top Taking at Discharge) oxyCODONE (ROXICODONE) 5 mg immediate release tabletIndicati ons:Pain Take 1 tablet (5 mg total) by mouth nightly as needed for pain 30 tablet 025 2024 Discontinued(E rror) carvediloL (COREG) 6.25 mg tabletIndicati ons:Hypertensi on associated with diabetes (HCC) TAKE 1 TABLET BY MOUTH TWICE A DAY WITH MEALS 180 tablet 3 025 2024 Discontinued(E rror) doxycycline (MONODOX) 100 mg capsuleIndicat ions:Skin/Soft Tissue Infection Take 1 capsule (100 mg total) by mouth 2 (two) times a day for 3 doses 3 capsule 025 2024 Discontinued doxycycline monohydrate (MONODOX) 100 mg capsuleIndicat ions:Skin/Soft Tissue Infection Take 1 capsule (100 mg total) by mouth 2 (two) times a day for 3 doses 025 2024 cetirizine (ZyrTEC) 10 mg tablet Take 1 tablet (10 mg total) by mouth every morning 2024 Discontinued(R eorder) Active Problems Problem Noted Date Diagnosed Date [...] 01/01 Assessment & Plan (01/20/2024 8:47 PM MORTGAGE CLOSER): Annual Medicare wellness exam completed today. All [...] 04/09/2023 Assessment & Plan (04/09/2023 4:00 PM MORTGAGE CLOSER): Due to patient's current condition of odontoid fracture, and the fact that she has in a neck brace, she has increased risk for balance issues and falling. Patient would benefit from home physical therapy/occupational therapy. Both of these services were ordered during patient's hospital discharge planning. Dependent edema 04/07/2023 Assessment & Plan (07/06/2024 7:00 PM CDT): Assessment & Plan (04/08/2023 10:01 AM MORTGAGE CLOSER): Trial of low-dose furosemide. Encouraged use of compression stocking, elevated legs above heart when possible. Follow advise of PT/OT. H/O gastrointestinal hemorrhage 03/13/2023 Right adrenal mass 02/10/2023 Assessment & Plan (02/12/2023 1:47 PM MORTGAGE CLOSER): #Indeterminate hypoattenuating lesion within the left inferior [...] 2022 Assessment & Plan (04/08/2023 10:00 AM MORTGAGE CLOSER): Slowly improving, currently in a neck brace. Keep sidney appts with specialists. Assessment & Plan (02/16/2023 12:26 PM MORTGAGE CLOSER): # C2 type II odontoid fracture with epidural hematoma - NSGY Spine consult (Dr. Rodriguez) - CTA head/neck - no evidence of vascular injuries - Pain control - [place] J at all times - Q4H NCs [...] the cervical spine -- Continue to wear [place] J brace at all times Closed fracture of spinous process of thoracic v ertebra 02/09/2023 Assessment & Plan (02/09/2023 11:52 AM MORTGAGE CLOSER): T4 spinous process fx - PT/OT - Pain control At risk for inadequate oral intake 02/09/2023 Assessment & Plan (02/10/2023 1:33 PM MORTGAGE CLOSER): - Patient reports having poor intake due to throat pain/Ing[place]ide J - Supplements ordered - 02/10 re-educated patient on goal of at least 1 Ensure per mealtime Other closed displaced odontoid fracture, initia l encounter 02/08/2023 Ductal carcinoma of breast, right 04/11/2021 Recurrent malignant neoplasm of right breast 11/2021 Overview (09/18/2022): Assessment: Right breast invasive ductal cancer stage I A ER positive MS positive Lumpectomy plus radiation followed by anastrozole for 5 years. Second right breast cancer, invasive ductal with lobular features-04/09/2021 Grade 1 ER positive MS positive HER2 0 Ki-67 15% Shows simple [...] 02/07/2021 Assessment & Plan (02/07/2021 10:19 AM MORTGAGE CLOSER): Trial of famotidine. Abnormal mammogram of right [...] PM CDT): Advise to keep following with curriculum development specialist Assessment & Plan (08/31/2020 5:39 PM CDT): [...] meds. Assessment & Plan (02/07/2021 10:17 AM MORTGAGE CLOSER): At baseline, cont current Rx meds. Assessment & Plan (08/31/2020 5:38 PM CDT): At baseline, cont current mgmt. Assessment & Plan (01/20/2020 12:54 PM MORTGAGE CLOSER): Occasional wheezing. Patient home nebulizer machine broke according to the patient. New prescription sent for another home nebulizer. Uses directed. Assessment & Plan (10/20/2019 1:46 PM CDT): Clinically improved, continue current meds. DDD (degenerative disc disease), lumbar 05/10/19 Assessment & Plan (01/20/2020 12:57 PM MORTGAGE CLOSER): Encouraged pojap-ya-aqhmqd exercises as tolerated. Managed by pain management. Chronic left hip pain 05/10/2019 skilled nursing (current) use of opiate analgesic 01/30 History of coronary angioplasty with insertion o f stent 01/16/2019 Assessment & Plan (10/17/2023 7:59 PM CDT): Followed by cardiology Coronary artery disease of n ative artery of [place] heart with stable angina pectoris 06/22/2018 Assessment & Plan (02/17/2023 11:06 AM MORTGAGE CLOSER): # CAD # Hypertension - ASA 81 [...] medications. Assessment & Plan (01/20/2020 12:56 PM MORTGAGE CLOSER): He is asymptomatic. Continue current medications. Assessment [...] flonase. Assessment & Plan (02/07/2021 10:17 AM MORTGAGE CLOSER): Asymptomatic. Stable. Continue current prescription medications. Assessment & Plan (01/20/2020 12:54 PM MORTGAGE CLOSER): Stable. Cont. Current meds. Assessment & Plan [...] ENT Assessment & Plan (01/20/2020 12:55 PM MORTGAGE CLOSER): Asymptomatic. Managed by ENT. Assessment & Plan (01/16/2019 1:05 PM MORTGAGE CLOSER): Resolved. Assessment & Plan (08/05/2017 7:58 AM [...] understanding. Assessment & Plan (01/16/2019 1:04 PM MORTGAGE CLOSER): Stable, cont current meds. Assessment & Plan (06/01/2017 1:30 PM CDT): She needs diagnosis of asthma, she needs outpatient pulmonary function test and follow up with rubber mill operator. Also recommend ENT consultation due to sinus [...] 11/26/2016 Assessment & Plan (01/20/2020 12:57 PM MORTGAGE CLOSER): Stable. Managed by pain specialist. Assessment & Plan (10/20/2019 1:49 PM CDT): Managed by Pain specialists. Assessment & Plan (01/16/2019 1:05 PM MORTGAGE CLOSER): Pain controlled. Diabetic peripheral neuropathy 11/26/2016 Assessment & Plan (08/30/2024 8:14 PM CDT): Assessment & Plan (11/10/2023 10:44 AM CDT): Chronic problem. Reviewed foot care; needs to lotion daily. Aware to check feet nightly, not to go barefoot. Assessment & Plan (04/07/2023 11:25 AM MORTGAGE CLOSER): May be contributing to her balance issues, in addition to the fact that she recently broke her neck. Patient encouraged to be careful when trying to ambulate and ask for help when needed. Assessment & Plan (09/18/2022 7:31 PM CDT): Stable. Cont. Current prescription medications, gabapentin. Managed by Pain specialists. Assessment & Plan (01/20/2020 12:55 PM MORTGAGE CLOSER): Asymptomatic. Managed by Endocrinology. Assessment & Plan (01/16/2019 1:06 PM MORTGAGE CLOSER): Clinically improved. Assessment & Plan (06/22/2018 3:50 AM CDT): Patient follows with Dr. Fonseca and receives tramadol p.r.n.. Hold tramadol at this time as patient will be receiving Norcos. OA (osteoarthritis) 11/26/2016 Assessment & Plan (01/16/2019 1:05 PM MORTGAGE CLOSER): On tramadol. Polymyalgia rheumatica 11/26/2016 Assessment & Plan (09/18/2022 7:31 PM CDT): Stable. Cont. Current prescription medications, Tramadol, gabapentin, managed by Pain Specialist. Assessment & Plan (01/20/2020 12:57 PM MORTGAGE CLOSER): Stable. Managed by pain specialist. Assessment & Plan (10/20/2019 1:48 PM CDT): Managed by pain specialists. Assessment & Plan (01/16/2019 1:06 PM MORTGAGE CLOSER): On tramadol. Hyperlipidemia associated with type 2 diabetes macie rosales 05/21/2016 Overview (11/26/2016): Hyperlipidemia Assessment & Plan (11/10/2023 10:17 AM CDT): Chronic problem, at goal on current Rosuvastatin 40mg. Last lipid panel: 10/16/23 LDL=58, VX=537. No changes at this time. Assessment & Plan (10/17/2023 8:00 PM CDT): Continue to limit fats in diet and take atorvastatin 80 mg daily Assessment & Plan (02/09/2023 11:41 AM MORTGAGE CLOSER): - Rosuvastatin Assessment & Plan (12/15/2022 11:35 AM CDT): On statin therapy Tolerating well Assessment & Plan (09/18/2022 7:23 PM CDT): LDL at goal of less than 100, continue current prescription medications, rosuvastatin. Assessment & Plan (05/05/2022 11:55 AM MORTGAGE CLOSER): Chronic problem, at goal on current Rosuvastatin 40mg. Last lipid panel: 09/09/21 LDL=63, DC=969. No changes at this time. Assessment & Plan (10/27/2021 5:57 PM CDT): LDL at goal of less than 100, continue current prescription medications. Assessment & Plan (09/09/2021 11:32 AM CDT): On statin therapy Tolerating well Assessment & Plan (03/25/2021 1:30 PM MORTGAGE CLOSER): On statin therapy Tolerating well Assessment & Plan (02/07/2021 10:17 AM MORTGAGE CLOSER): LDL at goal of < 70. Cont current Rx meds. Assessment & Plan (11/19/2020 3:49 PM CDT): On statin therapy Tolerating well Assessment & Plan (01/20/2020 12:53 PM MORTGAGE CLOSER): Elevated. Low-cholesterol diet recommended. Continue current medications. Managed by Endocrinology. Assessment & Plan (10/20/2019 1:46 PM CDT): Low chol diet recommended. Cont current mgmt. Assessment & Plan (09/12/2019 10:29 PM CDT): On statin therapy Tolerating well Assessment & Plan (09/04/2018 5:13 PM CDT): On statin therapy Tolerating well Assessment & Plan (06/22/2018 3:47 AM CDT): Continue statin Assessment & Plan (04/27/2018 7:20 AM MORTGAGE CLOSER): Lipid abnormalities are worsening. Nutritional counseling was provided. and Pharmacotherapy as ordered. Lipids will be reassessed in 6 months. Assessment & Plan (02/07/2018 11:18 PM MORTGAGE CLOSER): Pt on statin therapy Tolerating well Assessment & Plan (10/10/2017 10:42 PM CDT): Lipid abnormalities are unchanged. Nutritional counseling was provided. and Pharmacotherapy as ordered. Lipids will be reassessed in 6 months. Assessment & Plan (03/21/2017 1:22 AM MORTGAGE CLOSER): Currently on aspirin and statin will continue [...] Future Assessment & Plan (02/09/2024 8:32 PM MORTGAGE CLOSER): eGFR 47 on 09/17/2023. Currently on lisinopril [...] exam Assessment & Plan (02/17/2023 3:04 PM MORTGAGE CLOSER): - Home regimen: Novolog slide, insulin glargine [...] daughter to come to examination room from [facility]. She was not aware of which medications her mother was on either. Assessment & Plan (05/05/2022 11:56 AM MORTGAGE CLOSER): Chronic problem, near goal. A1c slowly trending [...] each visit Will do order process for DEXAtlantia Search G 6 CGM Advised to follow with Podiatry Follow-up in 6 months Assessment & Plan (03/25/2021 1:46 PM MORTGAGE CLOSER): Chronic, uncontrolled, improving slowly A1c today 8.7% [...] meds. Assessment & Plan (01/20/2020 12:53 PM MORTGAGE CLOSER): Uncontrolled. Managed by endocrinology. Patient encouraged to [...] months. Assessment & Plan (01/16/2019 1:03 PM MORTGAGE CLOSER): Managed by endocrinology. Assessment & Plan (09/04/2018 [...] now , they plan to go to [facility] Reminded to bring in blood sugar diary at next visit. Dietary recommendations for ADA diet. Regular aerobic exercise. Discussed ways to avoid symptomatic hypoglycemia. Discussed sick day management. Discussed foot care. Reminded to get yearly retinal exam. Diabetes will be reassessed in 2 weeks . Assessment & Plan (04/27/2018 7:20 AM MORTGAGE CLOSER): Diabetes is improving with treatment. - HbA1c [...] weeks. Assessment & Plan (02/07/2018 11:19 PM MORTGAGE CLOSER): Diabetes is worsening. Recent HbA1c 12/2017 - [...] month. Assessment & Plan (01/07/2018 5:29 PM MORTGAGE CLOSER): Diabetes is unchanged. Discussed foot care. Reminded to get yearly retinal exam. Keep sidney appt with new Immigration Consultant. Changed Levemir to Toujeo in an attempt to lower Rx costs for patient. Instructed her to take the forms for Levemir with her to her new Immigration Consultant it Toujeo was not more affordable. Assessment & Plan (10/10/2017 10:43 PM CDT): Diabetes is unchanged. Continue current treatment regimen. Reminded to bring in blood sugar diary at next visit. Dietary recommendations for ADA diet. Diabetes will be reassessed in 6 months. Assessment & Plan (03/21/2017 1:22 AM MORTGAGE CLOSER): Poorly controlled type 2 diabetes insulin dependent [...] home. Assessment & Plan (05/05/2022 11:42 AM MORTGAGE CLOSER): Chronic problem, well controlled on current carvedilol [...] appointment. Assessment & Plan (03/25/2021 1:30 PM MORTGAGE CLOSER): Hypertension is improving with treatment. Continue current treatment regimen. Dietary sodium restriction. Regular aerobic exercise. Blood pressure will be reassessed at the next regular appointment. Assessment & Plan (02/07/2021 10:15 AM MORTGAGE CLOSER): Clinically improved, continue current prescription medications. Assessment & Plan (11/19/2020 3:49 PM CDT): Hypertension is improving with treatment. Continue current treatment regimen. Dietary sodium restriction. Regular aerobic exercise. Blood pressure will be reassessed at the next regular appointment. Assessment & Plan (08/31/2020 5:37 PM CDT): BP remains within goal, keep sidney appt with curriculum development specialist. Cont current mgmt. Assessment & Plan (10/20/2019 [...] monitor. Assessment & Plan (04/27/2018 7:20 AM MORTGAGE CLOSER): Hypertension is improving with treatment. Continue current treatment regimen. Dietary sodium restriction. Regular aerobic exercise. Blood pressure will be reassessed at the next regular appointment. Assessment & Plan (02/07/2018 11:18 PM MORTGAGE CLOSER): Hypertension is chronic, well controlled for pt [...] appointment. Assessment & Plan (03/21/2017 1:23 AM MORTGAGE CLOSER): Hypertension fairly controlled Will continue with home lisinopril Chronic diastolic congestive heart failure Assessment & Plan (09/18/2022 7:36 PM CDT): Patient and patient's daughter deny this condition. Reviewed most recent ECHO, results state normal left ventricular diastolic function. . Asked patient to re-establish care with cardiology. Patient is lost to follow up since her tenterer left town. Patient currently asymptomatic. Assessment & Plan (10/20/2019 1:48 PM CDT): At baseline, managed by cardiology. Nocturnal hypoxemia Esophageal dysmotilities Resolved Problems Problem Noted Date Diagnosed Date Resolved Date Discharge planning issues 02/09/2023 Assessment & Plan (02/17/2023 2:44 PM MORTGAGE CLOSER): - 02/09 pending PT/OT, c spine xrays, [...] 11/10/2023 Assessment & Plan (05/05/2022 11:08 AM MORTGAGE CLOSER): Discussed healthy diet and importance of regular physical activity (20- 30min/day, 150min/wk). 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 Assessment & Plan (03/25/2021 1:53 PM MORTGAGE CLOSER): Advised to follow up with Contract Project Manager Pt has appt on apr 02 2021 Gave instructions for local wound care Acute hypoxemic respiratory failure 04/27/2019 10/20/2019 Acute lower respiratory tract infection 04/27/2019 07/01/2019 BMI 27.0-27.9,adult 01/14/2019 04/21/19 23 Assessment & Plan (11/18/2019 1:40 PM CDT): Healthy, low carbohydrate lifestyle and exercise Dizziness 01/14/2019 10/20/2019 Assessment & Plan (01/16/2019 1:03 PM MORTGAGE CLOSER): May be secondary to anti-hypertensives. Decrease lisinopril [...] tolerated tramadol and has had prescriptions for [place] as in the past. Order patient [place] as p.r.n.. Patient recently had a STEMI in March and is currently on aspirin and Brilinta will have to avoid NSAIDs for now. Assessment & Plan (06/21/2018 12:56 PM CDT): Acute, Worsening, Pt needs I and D and IV antibiotics Pt going to ER now ( [facility] ) Acute pain of right knee 05/04/2018 Assessment & Plan (05/04/2018 3:09 PM MORTGAGE CLOSER): Will obtain x-ray. Taking tylenol for pain. Asking for something stronger. Referral to Dr. Bunch, [facility] per pt request. ST elevation myocardial infa [...] 10/09/2017 Assessment & Plan (03/21/2017 1:26 AM MORTGAGE CLOSER): The patient was started on the Rocephin [...] Immunization Administration Dates Next Due COVID-19 mRNA ([employer]) 0.3 m L (10 mcg) vaccine (5-11 years) 01/20/2024 COVID-19 mRNA ([employer]) 0.3 m L (30 mcg) vaccine (12 [...] materials from doctor or pharmacy Never 03/11/2023 [facility] Utilities Answer Date Recorded In the past 12 months has e [employer], [employer], oil, or water [employer] threatened to shut off services in your home? No 08/05/2024 Social Connection and Isolation Panel [NHANES] A nswer Date Recorded In a typical week, how many times do you talk on the phone with family, friends, or neighbors? Twice a week 08/06/19 How often do you get togethe r with friends or relatives? Three times a week 08/05/2024 How often do you attend chur or presybeterian services? 1 to 4 times per year 08/05/2024 Do you belong to any clubs o r organizations such as scientologist groups, unions, fraternal or athletic groups, or school groups? Yes 08/05/2024 How often do you attend meet ings of the clubs or organizations you belong to? Never 08/05/2024 Are you , , di vorced, , never , or living with a partner? 08/05/2024 AUDIT-C Answer Date Recorded Q1: How often do you have a drink containing alcohol? Never 08/30/2024 Q2: How many drinks containi ng alcohol do you have on a typical day when you are drinking? Patient does not drink Q3: How often do you have si x or more drinks on one occasion? Never 08/30/2024 Overall Financial Resource Strain (CARDIA) Answe r Date Recorded How hard is it for you to pa y for the very basics like food, housing, medical care, and heating? Somewhat hard 08/05/2024 PHQ-2 Answer Date Recorded PHQ-2 Total Score (If total score is 3 or more points, staff should administer the PHQ-9) 1 07/12/2024 Hunger Vital Sign Answer Date Recorded Within the past 12 months, y ou worried that your food would run out before you got the money to buy more. Never true 08/06/19 25 Within the past 12 months, t he food you bought just didn't last and you didn't have money to get more. Never true 08/05/2024 PRAPARE - Transportation Answer Date Re corded In the past 12 months, has l ack of transportation kept you from medical appointments or from getting medications? No 07/2024 In the past 12 months, has l ack of transportation kept you from meetings, work, or from getting things needed for daily living? No 08/05/2024 Housing Stability Vital Sign Answer Almas e [...] place to sleep or slept in a long term (including now)? No 04/13/2023 PHQ-9 Answer Date Recorded PHQ-9 Total Score 2 07/12/2024 Housing Stability Vital Sign Answer Almas e Recorded In the last 12 months, was t here a time when you were not able to pay the mortgage or rent on time? No 08/05/2024 In the past 12 months, how m any times have you moved where you were living? 0 08/05/2024 At any time in the past 12 m [facility], were you homeless or living in a long term (including now)? No 08/05/2024 Personal Safety Answer Date Recorded Have you ever been in or are you currently in a harmful physical or emotional relationship or is someone making you feel afraid or unsafe? Denies 08/29/2024 Education Answer Date Recorded What is the highest level of school you have completed or the highest degree you have received? High school graduate 03/16/2023 Comments No Sex and Gender Information Value Date Recorded Sex Assigned at Not on file Legal Sex Female 5:37 PM MORTGAGE CLOSER Gender Identity Not on file Sexual Orientation Not on file Last Filed Vital Signs Vital Sign Reading Time Taken Comments Blood Pressure 140/70 08/30/2024 11:53 AM CDT Pulse 79 08/30/2024 11:38 AM CDT Temperature 36.5 C (97.7 F) 08/30/2024 11:38 AM CDT Respiratory Rate 16 08/29/2024 6:52 PM CDT Oxygen Saturation 94% 08/30/2024 11: 38 AM CDT Inhaled Oxygen Concentration - - Weight 67.1 kg (147 lb 14.4 oz) 025 11:38 AM CDT Height 154.9 cm (5' 0.98) 08/30/2024 1 1:38 AM CDT Body Mass Index 27.96 08/30/2024 11:38 AM CDT Plan of Treatment Upcoming Encounters Date Type Department Care Team (Late st Contact Info) Description 09/06/2024 9:00 AM CDT Hospital Encounter [facility] Operating Room [address] [place] [phone] [place] [address] [place] [address] 09/06/2024 9:00 AM CDT Anesthesia Event [facility] Operating Room [address] [place] [phone] Nadya Bradley, SERG [address] [place], [place] [phone] 09/06/2024 9:00 AM CDT - 09/06/2024 11:00 AM CDT Surgery [facility] Operating Room [address] [place] [phone] [place] [address] [place] [id number] Colpocleisis Scheduled Procedures Name Priority Associated Diagnoses Date/Ti me COLPOCLEISIS Vaginal vault prolapse 09/06/2024 9:00 AM CDT Goals Goal Patient Goal Type Associated Problems Recent Progress Patient-Stated? Author BH-Pain Behavioral Health Improving(03/2022 12:53 PM MORTGAGE CLOSER) Betty Aiken RN Note: Patient will establish a comfort-function goal and identify the pain level that will allow the patient to perform desired activities and achieve an acceptable quality of life. Medical Devices Implanted Type Area Make Ready Mechanic Device Identifier Shelf Expiration Date Model / Serial / Lot Bard Peripheral Vascular [id number] Ultraclip Bard 17ga 10cm 2 Trigger Permanent Ultrasound - [id number] - [id number] Implanted:Qty: 1 on 04/09/2021 by Thomas Davila MD at [facility] Breast Right: Breast [employer] 09/27/2023 [id number] / [employer] [id number] Xience Bree 3mm 18mm Rapid Exchange System Coronary Stent - [id number] Implanted:Qty: 1 on 03/12/2018 by Jacob Mary MD at [facility] [employer] 12/06/2018 [id number] Procedures Procedure Name Priority Date/Time Associated Diagnosis Comments XR CHEST PA LATERAL 2 VIEWS Schedule MARIE, Read MARIE (Appt Today, Awaiting Results) 08/31/2024 1:39 PM CDT Pre-operative clearance ECG 12-LEAD Routine 08/31/2024 1:38 PM CDT Pre-operative clearance EGFR Routine 08/30/2024 10:30 AM CDT Preoperative testing DIFFERENTIAL AUTO Routine 08/30/2024 10: 30 AM CDT Preoperative testing BASIC METABOLIC PANEL Routine 08/30/2024 10:30 AM CDT Preoperative testing CBC WITH AUTO DIFFERENTIAL Routine 08/30/2024 10:30 AM CDT Preoperative testing HEMOGLOBIN A1C Routine 08/30/2024 10:30 AM CDT Preoperative testing URINALYSIS, MICROSCOPIC ONLY STAT 08/29/2024 10:22 PM CDT URINE CULTURE STAT 08/29/2024 10:22 PM CDT URINALYSIS AND REFLEX TO MICROSCOPIC AND CULTURE STAT 08/29/2024 10:22 PM CDT POCT GLUCOSE DEVICE Routine 08/12/2024 1 1:56 AM CDT POCT GLUCOSE DEVICE Routine 08/12/2024 8 :00 AM CDT EGFR Routine 08/12/2024 3:30 AM CDT DIFFERENTIAL AUTO Routine 08/12/2024 3:3 0 AM CDT CBC WITH AUTO DIFFERENTIAL Routine 08/12/2024 3:30 AM CDT COMPREHENSIVE METABOLIC PANEL Routine 08/12/2024 3:30 AM CDT POCT GLUCOSE DEVICE Routine 08/12/2024 2 :43 AM CDT POCT GLUCOSE DEVICE Routine 08/11/2024 8 :28 PM CDT POCT GLUCOSE DEVICE Routine 08/11/2024 4 :43 PM CDT POCT GLUCOSE DEVICE Routine 08/11/2024 1 1:19 AM CDT POCT GLUCOSE DEVICE Routine 08/11/2024 7 :55 AM CDT EGFR Routine 08/11/2024 3:58 AM CDT DIFFERENTIAL AUTO Routine 08/11/2024 3:5 8 AM CDT CBC WITH AUTO DIFFERENTIAL Routine 08/11/2024 3:58 AM CDT COMPREHENSIVE METABOLIC PANEL Routine 08/11/2024 3:58 AM CDT POCT GLUCOSE DEVICE Routine 08/11/2024 3 :01 AM CDT POCT GLUCOSE DEVICE Routine 08/10/2024 7 :31 PM CDT POCT GLUCOSE DEVICE Routine 08/10/2024 3 :55 PM CDT POCT GLUCOSE DEVICE Routine 08/10/2024 1 1:57 AM CDT POCT GLUCOSE DEVICE Routine 08/10/2024 7 :23 AM CDT EGFR Routine 08/10/2024 3:05 AM CDT DIFFERENTIAL AUTO Routine 08/10/2024 3:0 5 AM CDT CBC WITH AUTO DIFFERENTIAL Routine 08/10/2024 3:05 AM CDT COMPREHENSIVE METABOLIC PANEL Routine 08/10/2024 3:05 AM CDT POCT GLUCOSE DEVICE Routine 08/10/2024 3 :00 AM CDT POCT GLUCOSE DEVICE Routine 08/09/2024 9 :21 PM CDT POCT GLUCOSE DEVICE Routine 08/09/2024 4 :23 PM CDT POCT GLUCOSE DEVICE Routine 08/09/2024 1 1:16 AM CDT POCT GLUCOSE DEVICE Routine 08/09/2024 7 :21 AM CDT EGFR Routine 08/09/2024 3:40 AM CDT DIFFERENTIAL AUTO Routine 08/09/2024 3:4 0 AM CDT CBC WITH AUTO DIFFERENTIAL Routine 08/09/2024 3:40 AM CDT COMPREHENSIVE METABOLIC PANEL Routine 08/09/2024 3:40 AM CDT POCT GLUCOSE DEVICE Routine 08/09/2024 2 :44 AM CDT POCT GLUCOSE DEVICE Routine 08/08/2024 7 :50 PM CDT POCT GLUCOSE DEVICE Routine 08/08/2024 4 :23 PM CDT POCT GLUCOSE DEVICE Routine 08/08/2024 1 1:18 AM CDT POCT GLUCOSE DEVICE Routine 08/08/2024 7 :24 AM CDT EGFR Routine 08/08/2024 3:58 AM CDT DIFFERENTIAL AUTO Routine 08/08/2024 3:5 8 AM CDT CBC WITH AUTO DIFFERENTIAL Routine 08/08/2024 3:58 AM CDT COMPREHENSIVE METABOLIC PANEL Routine 08/08/2024 3:58 AM CDT POCT GLUCOSE DEVICE Routine 08/08/2024 1 :52 AM CDT POCT GLUCOSE DEVICE Routine 08/07/2024 9 :15 PM CDT POCT GLUCOSE DEVICE Routine 08/07/2024 4 :28 PM CDT POCT GLUCOSE DEVICE Routine 08/07/2024 1 1:36 AM CDT POCT GLUCOSE DEVICE Routine 08/07/2024 7 :21 AM CDT EGFR Routine 08/07/2024 2:51 AM CDT DIFFERENTIAL AUTO Routine 08/07/2024 2:5 1 AM CDT CBC WITH AUTO DIFFERENTIAL Routine 08/07/2024 2:51 AM CDT COMPREHENSIVE METABOLIC PANEL Routine 08/07/2024 2:51 AM CDT POCT GLUCOSE DEVICE Routine 08/07/2024 2 :11 AM CDT VANCOMYCIN LEVEL RANDOM Timed 08/06/2024 9:07 PM CDT POCT GLUCOSE DEVICE Routine 08/06/2024 8 :19 PM CDT POCT GLUCOSE DEVICE Routine 08/06/2024 4 :38 PM CDT POCT GLUCOSE DEVICE Routine 08/06/2024 1 1:57 AM CDT POCT GLUCOSE DEVICE Routine 08/06/2024 7 :59 AM CDT EGFR Routine 08/06/2024 3:54 AM CDT DIFFERENTIAL AUTO Routine 08/06/2024 3:5 4 AM CDT CBC WITH AUTO DIFFERENTIAL Routine 08/06/2024 3:54 AM CDT MAGNESIUM Routine 08/06/2024 3:54 AM CDT COMPREHENSIVE METABOLIC PANEL Routine 08/06/2024 3:54 AM CDT POCT GLUCOSE DEVICE Routine 08/06/2024 3 :13 AM CDT VANCOMYCIN LEVEL RANDOM Timed 08/05/2024 10:24 PM CDT POCT GLUCOSE DEVICE Routine 08/05/2024 7 :49 PM CDT POCT GLUCOSE DEVICE Routine 08/05/2024 4 :41 PM CDT US VEIN DUPLEX LOWER EXTREMITY BILATERAL COMPLETE IP Routine 08/05/2024 1:59 PM CDT POCT GLUCOSE DEVICE Routine 08/05/2024 1 1:43 AM CDT POCT GLUCOSE DEVICE Routine 08/05/2024 9 :38 AM CDT POCT GLUCOSE DEVICE Routine 08/05/2024 7 :27 AM CDT POCT GLUCOSE DEVICE Routine 08/05/2024 4 :09 AM CDT EGFR Routine 08/05/2024 3:34 AM CDT DIFFERENTIAL AUTO Routine 08/05/2024 3:3 4 AM CDT MAGNESIUM Routine 08/05/2024 3:34 AM CDT COMPREHENSIVE METABOLIC PANEL Routine 08/05/2024 3:34 AM CDT CBC WITH AUTO DIFFERENTIAL Routine 08/05/2024 3:34 AM CDT POCT GLUCOSE DEVICE Routine 08/04/2024 1 1:07 PM CDT XR TIBIA FIBULA RIGHT2 VIEWS ED Urgent/IP Urgent 08/04/2024 10:11 PM CDT XR FOOT RIGHT 2 VIEWS ED Urgent/IP Urgent 08/04/2024 10:11 PM CDT URINALYSIS, MICROSCOPIC ONLY STAT 08/04/2024 9:45 PM CDT URINE CULTURE STAT 08/04/2024 9:45 PM CDT URINALYSIS AND REFLEX TO MICROSCOPIC AND CULTURE STAT 08/04/2024 9:45 PM CDT POCT GLUCOSE DEVICE Routine 08/04/2024 9 :34 PM CDT BLOOD CULTURE STAT 08/04/2024 8:32 PM CDT BLOOD CULTURE STAT 08/04/2024 8:32 PM CDT EGFR STAT 08/04/2024 7:17 PM CDT DIFFERENTIAL AUTO STAT 08/04/2024 7:1 7 PM CDT SEPSIS LACTATE WITH REFLEX STAT 08/04/2024 7:17 PM CDT CBC WITH AUTO DIFFERENTIAL STAT 08/04/2024 7:17 PM CDT COMPREHENSIVE METABOLIC PANEL STAT 08/04/2024 7:17 PM CDT TISSUE AEROBIC AND ANAEROBIC CULTURE AND GRAM STAIN Routine 07/29/2024 10:10 AM CDT LIPID PANEL Routine 10/16/2023 2:36 PM CDT Screening for lipid disorders HM DIABETES EYE EXAM Routine 04/02/2023 9:12 AM MORTGAGE CLOSER ALBUMIN CREATININE RATIO, URINE Routine 09/18/2022 12:53 [...] Recently Relevant to Health Maintenance Results * XR Chest PA Lateral 2 Views (08/31/2024 1:39 PM CDT) Anatomical Region Laterality Modality Body, Chest N/A Computed Radiogr aphy 09/01/2024 9:58 PM CDT Narrative 09/01/2024 10:00 PM CDT EXAM DESCRIPTION: XR CHEST PA LATERAL 2 VIEWS REASON FOR STUDY: Pre Op Clearance Preop for bladder tie up Diabetic non smoker right mastectomy TECHNIQUE: There are 2 radiographic view(s) of the chest. COMPARISON: Prior exam 03/13/2023, 02/08/2023 FINDINGS: LUNGS: Pulmonary vascularity appears normal. No confluent infiltrate or effusion. Stable elevation right hemidiaphragm. HEART/MEDIASTINUM: Senescent change of the aorta. Otherwise, normal cardiomediastinal silhouette. LINES/TUBES: None. BONES: Bridging osteophytes are seen at multiple levels indicative of diffuse idiopathic skeletal hyperostosis. IMPRESSION: 1. No acute findings or infiltrate. 2. Stable elevation right hemidiaphragm. THIS IS AN ELECTRONICALLY VERIFIED FINAL REPORT 09/01/2024 10:00 PM - Electronically signed by Glynn Mosley M.D. MJ: BR[facility]ORD Report ID: [id number] Reading Location: [id number] Procedure Note Glynn Mosley MD - 09/01/2024 EXAM DESCRIPTION: XR CHEST PA LATERAL 2 VIEWS REASON FOR STUDY: Pre Op Clearance Preop for bladder tie up Diabetic non smoker right mastectomy TECHNIQUE: There are 2 radiographic view(s) of the chest. COMPARISON: Prior exam 03/13/2023, 02/08/2023 FINDINGS: LUNGS: Pulmonary vascularity appears normal. No confluent infiltrate or effusion. Stable elevation right hemidiaphragm. HEART/MEDIASTINUM: Senescent change of the aorta. Otherwise, normal cardiomediastinal silhouette. LINES/TUBES: None. BONES: Bridging osteophytes are seen at multiple levels indicative ofdiffuse idiopathic skeletal hyperostosis. IMPRESSION: 1. No acute findings or infiltrate. 2. Stable elevation right hemidiaphragm. THIS IS AN ELECTRONICALLY VERIFIED FINAL REPORT 09/01/2024 10:00 PM - Electronically signed by Glynn Mosley M.D. MJ: BR[facility]ORD Report ID: [id number] Reading Location: [place] [address] Faith Hamm [employer] IMG XR PROCEDURES Final Resul t * ECG 12 lead (08/31/2024 1:38 PM CDT) 08/31/2024 1:28 PM CDT Narrative [facility] - 08/31/2024 2:17 PM CDT Vent Rate: 70 bpm RR Interval: 847 msec MS Interval: 202 msec QRS Duration: 135 msec QT Interval: 421 msec QTC Interval: 442 msec P-R-T Gaston: 36 - 95 - -27 degrees IMPRESSION: SINUS RHYTHM RIGHT BUNDLE BRANCH BLOCK [120+ ms QRS DURATION, UPRIGHT V1, 40+ ms S IN I/aVL/V4/V5/V6] POSSIBLE ANTERIOR MYOCARDIAL INFARCTION , OF INDETERMINATE AGE [30 ms Q WAVE IN V3/V4, OR R < 0.2 mV IN V4] ABNORMAL ECG Compared prior EKG, pattern old anterior myocardial infarction is now present Electronically Signed By: Isaias Shafer MD Faith Hamm NP ECG ORDERABLES Final Result [facility] * eGFR (08/30/2024 10:30 AM CDT) eGFR 60 >=60 mL/min/1. 73 m2 Comment: Interpretive Data [...] interpretive data was last reviewed 2020. Blood 08/30/2024 10:3 0 AM CDT 08/30/2024 10:33 AM CDT Nadya Bradley NP LAB BLOOD ORDERABLES [facility] Result [facility] [address] [place] [address] * (ABNORMAL) Differential, auto (08/30/2024 10:30 AM CDT) Neutrophil abs 5.50 1.50 - 6.50 K/cumm Imm gran abs 0.03 0.00 - 0.10 K/cumm [facility] Lymphocyte abs 2.84 0.80 - 3.30 K/cumm [facility] Monocyte abs 0.88(H) 0.20 - 0.80 K/cumm [facility] Eosinophil abs 0.62(H) 0.00 - 0.50 K/cumm [facility] Basophil abs 0.04 0.00 - 0.10 K/cumm [facility] Neutrophil pct 55.4 % [facility] Comment: Interpretive Data Percent cell count reference ranges are not reported, since discordance with absolute values may lead to misinterpretation of CBC data. Current Interpretive Data was last revised on 2017. Imm gran pct 0.3 % [facility] Comment: Interpretive Data Percent cell count reference ranges are not reported, since discordance with absolute values may lead to misinterpretation of CBC data. Current Interpretive Data was last revised on 2017. Lymphocyte pct 28.7 % [facility] Comment: Interpretive Data Percent cell count reference ranges are not reported, since discordance with absolute values may lead to misinterpretation of CBC data. Current Interpretive Data was last revised on 2017. Monocyte pct 8.9 % [facility] Comment: Interpretive Data Percent cell count reference ranges are not reported, since discordance with absolute values may lead to misinterpretation of CBC data. Current Interpretive Data was last revised on 2017. Eosinophil pct 6.3 % [facility] Comment: Interpretive Data Percent cell count reference ranges are not reported, since discordance with absolute values may lead to misinterpretation of CBC data. Current Interpretive Data was last revised on 2017. Basophil pct 0.4 % [facility] Comment: Interpretive Data Percent cell count reference ranges are not reported, since discordance with absolute values may lead to misinterpretation of CBC data. Current Interpretive Data was last revised on 2017. Blood 08/30/2024 10:3 0 AM CDT 08/30/2024 10:34 AM CDT Nadya Bradley [employer] LAB BLOOD ORDERABLES nal Result [facility] [address] Department [place] [address] * (ABNORMAL) CBC with auto differential (08/30/2024 10:30 AM CDT) WBC 9.91(H) 3.80 - 9.90 K/cumm Hgb 11.4(L) 11.9 - 15.5 g/dL [facility] Hct 37.3 35.6 - 45.5 % [facility] Plt 223 150 - 400 K/cumm [facility] MPV 10.8 9.1 - 12.3 fL [facility] RBC 4.05 3.90 - 5.20 M/cumm [facility] MCV 92.1 81.3 - 96.4 fL [facility] MCH 28.1 27.1 - 33.3 pg [facility] MCHC 30.6(L) 32.3 - 35.7 g/dL [facility] RDW CV 14.2 11.1 - 14.9 % [facility] RDW SD 48.1 35.7 - 48.1 fL [facility] NRBC abs 0.00 0.00 - 0.01 K/cumm [facility] Blood 08/30/2024 10:3 0 AM CDT 08/30/2024 10:34 AM CDT Nadya Bradley NP LAB BLOOD ORDERABLES Fi nal Result Performing Organization Address [facility] de Phone Number [facility] [address] [place] [address] * (ABNORMAL) Hemoglobin A1c (08/30/2024 10:30 AM CDT) Pathologist [facility] Hgb A1C 10.3(H) 4.0 - 5.6 % Estimated Average Glucose 249 mg/dL [facility] Comment: The ADA recommends reporting an estimated Average Glucose (eAG) with all Hemoglobin A1c results using the equation derived from a study of 507 normal and diabetic adults. Minority populations were underrepresented and children were not included. (Diabetes Care 31:6861-5957, 2008). The eAG is not equivalent to a fasting glucose. Blood 08/30/2024 10:3 0 AM CDT 08/30/2024 10:34 AM CDT Nadya Bradley NP LAB BLOOD ORDERABLES Fi nal Result Performing Organization Address City/[facility]/ZIP Co de Phone Number [facility] [address] [place] [place] [address] * (ABNORMAL) Basic metabolic panel (08/30/2024 10:30 AM CDT) Pathologist [facility] Sodium 141 135 - 145 mmol/L Potassium, pl 3.8 3.3 - 4.9 mmol/L [facility] Chloride 108 97 - 110 mmol/L [facility] CO2 21(L) 22 - 32 mmol/L [facility] Anion gap 12 2 - 15 mmol/L [facility] BUN 29(H) 6 - 25 mg/dL [facility] Creatinine 0.92 0.60 - 1.10 mg/dL [facility] Glucose 137 70 - 199 mg/dL [facility] Comment: Interpretive Data Fasting glucose >/= 126 mg/dl is diagnostic for diabetes. Fasting is defined as no caloric intake for at least 8 hours. Fasting glucose between 100 mg/dl to 125 mg/dl is diagnostic of prediabetes. In a patient with classic symptoms of hyperglycemia or hyperglycemic crisis, a random glucose >/= 200 mg/dl is diagnostic for diabetes. In the absence of unequivocal hyperglycemia, results should be confirmed by repeat testing. The classification and Diagnosis of Diabetes Diabetes Care 2021; 46: S19-S40. Current interpretive data was last revised 2022. Calcium 9.1 8.5 - 10.3 mg/dL [facility] Blood 08/30/2024 10:3 0 AM CDT 08/30/2024 10:33 AM CDT Nadya Bradley NP LAB BLOOD ORDERABLES [facility] Result [facility] [address] Department [place] [address] * (ABNORMAL) Urinalysis reflex to microscopic and culture Urine, indwelling catheter (08/29/2024 10:22 PM CDT) Color, ur Yellow Yellow Clarity, ur Turbid(A) Clear [facility] ([place]) Specific gravity, ur 1.017 1.003 - 1.030 [facility] ([place]) pH, urine 6.0 [facility] ([place]) Comment: Interpretive Data U rine pH is affected by diet, medications, systemic acid-base disturbances, and renal tubular function. pH may affect urinary stone formation. For example, urine pH below 6.0 may help reduce the tendency for calcium phosphate stones and pH greater than 6.0 may reduce the tendency for uric acid stone formation. Source: [facility] Current Interpretive Data was last revised on 2017 Protein, ur ql 2+(A) Negative [facility] ([place]) Glucose, ur ql 1+(A) Negative [facility] ([place]) Ketones, ur Negative Negative [facility] ([place]) Bilirubin, ur Negative Negative [facility] ([place]) Blood, ur 1+(A) Negative [facility] ([place]) Urobilinogen, ur <2.0 <2.0 mg/dL [facility] ([place]) Nitrite, ur Positive(A) Negative [facility] ([place]) Leukocyte esterase, ur 4+(A) Negative [facility] ([place]) UA reflex comment Reflex to microscopic UA will be performed. [facility] ([place]) Urine, indwelling catheter 08/29/2024 10:22 PM CDT 08/29/2024 10:25 PM CDT Jacob Monae MD LAB MICROBIOLOGY - GENERAL O RDERABLES Final Result Performing Organization Address [facility] de Phone Number [facility] ([place]) 1 [facility] Department [place] [address] * (ABNORMAL) Urinalysis, microscopic only (08/29/2024 10:22 PM CDT) WBC, ur >50(A) 0 - 5 /HPF RBC, ur 6-10(A) 0 - 2 /HPF [facility] ([place]) Epithelial cells, squamous, ur 1-5 0 - 5 /HPF [facility] ([place]) Bacteria, ur 1+(A) [facility] ([place]) Mucous, ur Present(A) [facility] ([place]) Culture Reflex Comment Reflex to urine culture will be performed. [facility] ([place]) Urine, indwelling catheter 08/29/2024 10:22 PM CDT 08/29/2024 10:25 PM CDT Jacob Monae MD LAB URINE ORDERABLES Final R esult Performing Organization Address [facility] Co de Phone Number RUSTY ANTIONE ([place]) 1 [facility] Department [place] [address] * (ABNORMAL) Urine culture Urine, indwelling catheter (08/29/2024 10:22 PM CDT) Report Final Report: Greater than or equal to 100,000 colonies/mL of Enterobacter cloacae complex Greater than or equal to 100,000 colonies/mL of Citrobacter koseri (.) Comment:Testing performed by : [facility], [address] [place] [address] Organism ENTEROBACTER CLOACAE COMPLEX RUSTY TALBOT ([place]) Organism CITROBACTER KOSERI RUSTY TALBOT ([place]) Urine, indwelling catheter 08/29/2024 10:22 PM CDT 08/30/2024 1:36 AM CDT Narrative RUSTY TALBOT ([place]AMA) - 09/01/2024 12:28 PM CDT Urine culture reflexed based upon urinalysis results. Testing performed by [facility] Micro[facility] Laboratory ([phone]) Organism Antibiotic Method Susceptibility Enterobacter cloacae complex Ampicillin INTERPRETATION Resistant Enterobacter cloacae complex Cefazolin INTERPRETATION Resistant Enterobacter cloacae complex Nitrofurantoin INTERPRETATION Intermediate Enterobacter cloacae complex Gentamicin INTERPRETATION Susceptible Enterobacter cloacae complex Trimethoprim with Sulfamethoxazole INTERPRETATION Susceptible Enterobacter cloacae complex Meropenem INTERPRETATION Susceptible Enterobacter cloacae complex Cefepime INTERPRETATION Susceptible Enterobacter cloacae complex Ciprofloxacin INTERPRETATION Susceptible Enterobacter cloacae complex Ceftazidime INTERPRETATION Resistant Enterobacter cloacae complex Ceftriaxone INTERPRETATION Resistant Enterobacter cloacae complex Piperacillin/Tazobactam INTERPRETATION Resistant Citrobacter koseri Ampicillin INTERPRETATION Resistant Citrobacter koseri Cefazolin INTERPRETATION Susceptible Citrobacter koseri Nitrofurantoin INTERPRETATION Susceptible Citrobacter koseri Gentamicin INTERPRETATION Susceptible Citrobacter koseri Trimethoprim with Sulfamethoxazole INTERPRETATION Resistant Citrobacter koseri Meropenem INTERPRETATION Susceptible Citrobacter koseri Cefepime INTERPRETATION Susceptible Citrobacter koseri Ciprofloxacin INTERPRETATION Susceptible Citrobacter koseri Ceftazidime INTERPRETATION Susceptible Citrobacter koseri Ceftriaxone INTERPRETATION Susceptible Citrobacter koseri Piperacillin/Tazobactam INTERPRETAT ION Susceptible Jacob Monae MD LAB MICROBIOLOGY - GENERAL O RDERABLES Final Result RUSTY TALBOT ([place]) 1 [facility] [place] [address] * POCT glucose (08/12/2024 11:56 AM CDT) Glucose, POC 100 70 - 199 mg/dL Blood 08/12/2024 11:5 6 AM CDT 08/12/2024 11:56 AM CDT Marleen Robles MD LAB POCT ORDERABLES - DEVICE Final Result Performing Organization Address City/[facility]/ZIP Co de Phone Number RUSTY TALBOT ([place]) 1 [facility] [place] [address] * POCT glucose (08/12/2024 8:00 AM CDT) [facility] Glucose, POC 88 70 - 199 mg/dL Blood 08/12/2024 8:00 AM CDT 08/12/2024 8:00 AM CDT Marleen Robles MD LAB POCT ORDERABLES - DEVICE Final Result Performing Organization Address City/[facility] Co de Phone Number RUSTY TALBOT ([place]) 1 [facility] [place] [address] * (ABNORMAL) eGFR (08/12/2024 3:30 AM CDT) [facility] eGFR 34(L) >=60 mL/min/1. 73 m2 Comment: [...] interpretive data was last reviewed 2020. Blood 08/12/2024 3:30 AM CDT 08/12/2024 5:17 AM CDT us Juan Sorto MD LAB BLOOD ORDERABLES Fi nal Result [facility] ([place]) 1 [facility] Department [place] [address] * (ABNORMAL) Differential, auto (08/12/2024 3:30 AM CDT) Neutrophil abs 6.77(H) 1.50 - 6.50 K/cumm Imm gran abs 0.12(H) 0.00 - 0.10 K/cumm [facility] ([place]) Lymphocyte abs 3.30 0.80 - 3.30 K/cumm [facility] ([place]) Monocyte abs 0.68 0.20 - 0.80 K/cumm [facility] ([place]) Eosinophil abs 0.39 0.00 - 0.50 K/cumm [facility] ([place]) Basophil abs 0.06 0.00 - 0.10 K/cumm [facility] ([place]) Neutrophil pct 59.8 % [facility] ([place]) Comment: Interpretive Data Percent cell count reference ranges are not reported, since discordance with absolute values may lead to misinterpretation of CBC data. Current Interpretive Data was last revised on 2017. Imm gran pct 1.1 % [facility] ([place]) Comment: Interpretive Data Percent cell count reference ranges are not reported, since discordance with absolute values may lead to misinterpretation of CBC data. Current Interpretive Data was last revised on 2017. Lymphocyte pct 29.2 % [facility] ([place]) Comment: Interpretive Data Percent cell count reference ranges are not reported, since discordance with absolute values may lead to misinterpretation of CBC data. Current Interpretive Data was last revised on 2017. Monocyte pct 6.0 % [facility] ([place]) Comment: Interpretive Data Percent cell count reference ranges are not reported, since discordance with absolute values may lead to misinterpretation of CBC data. Current Interpretive Data was last revised on 2017. Eosinophil pct 3.4 % [facility] ([place]) Comment: Interpretive Data Percent cell count reference ranges are not reported, since discordance with absolute values may lead to misinterpretation of CBC data. Current Interpretive Data was last revised on 2017. Basophil pct 0.5 % [facility] ([place]) Comment: Interpretive Data Percent cell count reference ranges are not reported, since discordance with absolute values may lead to misinterpretation of CBC data. Current Interpretive Data was last revised on 2017. Blood 08/12/2024 3:30 AM CDT 08/12/2024 5:17 AM CDT us Juan Sorto MD LAB BLOOD ORDERABLES nal Result [facility] ([place]) 1 [facility] Department [place] [address] * (ABNORMAL) CBC with auto differential (08/12/2024 3:30 AM CDT) WBC 11.32(H) 3.80 - 9.90 K/cumm Hgb 9.9(L) 11.9 - 15.5 g/dL [facility] ([place]) Hct 31.4(L) 35.6 - 45.5 % [facility] ([place]) Plt 335 150 - 400 K/cumm [facility] ([place]) MPV 10.2 9.1 - 12.3 fL [facility] ([place]) RBC 3.52(L) 3.90 - 5.20 M/cumm [facility] ([place]) MCV 89.2 81.3 - 96.4 fL [facility] ([place]) MCH 28.1 27.1 - 33.3 pg [facility] ([place]) MCHC 31.5(L) 32.3 - 35.7 g/dL [facility] ([place]) RDW CV 14.3 11.1 - 14.9 % [facility] ([place]) RDW SD 46.1 35.7 - 48.1 fL [facility] ([place]) NRBC abs 0.00 0.00 - 0.01 K/cumm [facility] ([place]) Blood 08/12/2024 3:30 AM CDT 08/12/2024 5:17 AM CDT us Juan Sorto MD LAB BLOOD ORDERABLES Fi nal Result [facility] ([place]) 1 [facility] Department [place] [address] * (ABNORMAL) Comprehensive metabolic panel (08/12/2024 3:30 AM CDT) Sodium 136 135 - 145 mmol/L Potassium, pl 5.4(H) 3.3 - 4.9 mmol/L [facility] ([place]) Chloride 99 97 - 110 mmol/L [facility] ([place]) CO2 25 22 - 32 mmol/L [facility] ([place]) Anion gap 12 2 - 15 mmol/L [facility] ([place]) BUN 55(H) 6 - 25 mg/dL [facility] ([place]) Creatinine 1.48(H) 0.60 - 1.10 mg/dL [facility] ([place]) Glucose 193 70 - 199 mg/dL [facility] ([place] Comment: Interpretive Data Fasting glucose >/= 126 mg/dl is diagnostic for diabetes. Fasting is defined as no caloric intake for at least 8 hours. Fasting glucose between 100 mg/dl to 125 mg/dl is diagnostic of prediabetes. In a patient with classic symptoms of hyperglycemia or hyperglycemic crisis, a random glucose >/= 200 mg/dl is diagnostic for diabetes. In the absence of unequivocal hyperglycemia, results should be confirmed by repeat testing. The classification and Diagnosis of Diabetes Diabetes Care 2021; 46: S19-S40. Current interpretive data was last revised 2022. Calcium 9.1 8.5 - 10.3 mg/dL [facility] ([place]) Bilirubin, total <0.2 0.1 - 1.2 mg/dL [facility] ([place]) Protein, pl 6.3(L) 6.5 - 8.5 g/dL [facility] ([place]) Albumin 2.7(L) 3.5 - 5.0 g/dL [facility] ([place]) Alk phos 198(H) 40 - 130 Units/L [facility] ([place]) ALT 32 7 - 45 Units/L [facility] ([place]) AST 29 10 - 45 Units/L [facility] ([place] Blood 08/12/2024 3:30 AM CDT 08/12/2024 5:17 AM CDT Juan Sorto MD LAB BLOOD ORDERABLES Fi nal Result Performing Organization Address City/[facility]/ZIP Co de Phone Number [facility] ([place]) 1 [facility] [place] [address] * (ABNORMAL) POCT glucose (08/12/2024 2:43 AM CDT) Glucose, POC 224(H) 70 - 199 mg/dL Blood 08/12/2024 2:43 AM CDT 08/12/2024 2:43 AM CDT Marleen Robles MD LAB POCT ORDERABLES - DEVICE Final Result [facility] ([place]) 1 [facility] [place] [place] [address] * (ABNORMAL) POCT glucose (08/11/2024 8:28 PM CDT) Glucose, POC 201(H) 70 - 199 mg/dL Blood 08/11/2024 8:28 PM CDT 08/11/2024 8:28 PM CDT Marleen Robles MD LAB POCT ORDERABLES - DEVICE Final Result RUSTY TALBOT ([place]) [address] [place] [address] * POCT glucose (08/11/2024 4:43 PM CDT) Glucose, POC 123 70 - 199 mg/dL Blood 08/11/2024 4:43 PM CDT 08/11/2024 4:43 PM CDT us Marleen Robles MD LAB POCT ORDERABLES - DEVICE Final Result Performing Organization Address City/[facility]/ZIP Co de Phone Number RUSTY TALBOT ([place]) 1 [facility] [place] [address] * POCT glucose (08/11/2024 11:19 AM CDT) Glucose, POC 144 70 - 199 mg/dL Blood 08/11/2024 11:1 9 AM CDT 08/11/2024 11:19 AM CDT us Marleen Robles MD LAB POCT ORDERABLES - DEVICE Final Result Performing Organization Address City/[facility]/ZIP Co de Phone Number RUSTY TALBOT ([place]) 1 [facility] [place] [address] * POCT glucose (08/11/2024 7:55 AM CDT) Glucose, POC 120 70 - 199 mg/dL Blood 08/11/2024 7:55 AM CDT 08/11/2024 7:55 AM CDT us Marleen Robles MD LAB POCT ORDERABLES - DEVICE Final Result RUSTY TALBOT ([place]) 1 [facility] [place] [address] * (ABNORMAL) eGFR (08/11/2024 3:58 AM CDT) eGFR 42(L) >=60 mL/min/1. 73 m2 Comment: Interpretive Data [...] interpretive data was last reviewed 2020. Blood 08/11/2024 3:58 AM CDT 08/11/2024 4:42 AM CDT us Juan Sorto MD LAB BLOOD ORDERABLES [facility] Result R[facility] ([place]) 1 [facility] Department [place] [address] * (ABNORMAL) Differential, auto (08/11/2024 3:58 AM CDT) Neutrophil abs 5.94 1.50 - 6.50 K/cumm Imm gran abs 0.14(H) 0.00 - 0.10 K/cumm [facility] ([place]) Lymphocyte abs 3.99(H) 0.80 - 3.30 K/cumm [facility] ([place]) Monocyte abs 0.79 0.20 - 0.80 K/cumm [facility] ([place]) Eosinophil abs 0.41 0.00 - 0.50 K/cumm [facility] ([place]) Basophil abs 0.06 0.00 - 0.10 K/cumm [facility] ([place]) Neutrophil pct 52.5 % [facility] ([place]) Comment: Interpretive Data Percent cell count reference ranges are not reported, since discordance with absolute values may lead to misinterpretation of CBC data. Current Interpretive Data was last revised on 2017. Imm gran pct 1.2 % [facility] ([place]) Comment: Interpretive Data Percent cell count reference ranges are not reported, since discordance with absolute values may lead to misinterpretation of CBC data. Current Interpretive Data was last revised on 2017. Lymphocyte pct 35.2 % [facility] ([place]) Comment: Interpretive Data Percent cell count reference ranges are not reported, since discordance with absolute values may lead to misinterpretation of CBC data. Current Interpretive Data was last revised on 2017. Monocyte pct 7.0 % [facility] ([place]) Comment: Interpretive Data Percent cell count reference ranges are not reported, since discordance with absolute values may lead to misinterpretation of CBC data. Current Interpretive Data was last revised on 2017. Eosinophil pct 3.6 % [facility] ([place]) Comment: Interpretive Data Percent cell count reference ranges are not reported, since discordance with absolute values may lead to misinterpretation of CBC data. Current Interpretive Data was last revised on 2017. Basophil pct 0.5 % [facility] ([place]) Comment: Interpretive Data Percent cell count reference ranges are not reported, since discordance with absolute values may lead to misinterpretation of CBC data. Current Interpretive Data was last revised on 2017. Blood 08/11/2024 3:58 AM CDT 08/11/2024 4:42 AM CDT us Juan Sorto MD LAB BLOOD ORDERABLES Fi nal Result RUSTY ANTIONE ([place]) 1 [facility] Department [place] [address] * (ABNORMAL) CBC with auto differential (08/11/2024 3:58 AM CDT) WBC 11.33(H) 3.80 - 9.90 K/cumm Hgb 10.0(L) 11.9 - 15.5 g/dL [facility] ([place]) Hct 31.5(L) 35.6 - 45.5 % [facility] ([place]) Plt 297 150 - 400 K/cumm [facility] ([place]) MPV 9.6 9.1 - 12.3 fL [facility] ([place]) RBC 3.54(L) 3.90 - 5.20 M/cumm [facility] ([place]) MCV 89.0 81.3 - 96.4 fL [facility] ([place]) MCH 28.2 27.1 - 33.3 pg [facility] ([place]) MCHC 31.7(L) 32.3 - 35.7 g/dL [facility] ([place]) RDW CV 14.2 11.1 - 14.9 % [facility] ([place]) RDW SD 45.9 35.7 - 48.1 fL [facility] ([place]) NRBC abs 0.00 0.00 - 0.01 K/cumm [facility] ([place]) Blood 08/11/2024 3:58 AM CDT 08/11/2024 4:42 AM CDT us Juan Sorto MD LAB BLOOD ORDERABLES nal Result [facility] ([place]) 1 [facility] Department [place] [address] * (ABNORMAL) Comprehensive metabolic panel (08/11/2024 3:58 AM CDT) Sodium 136 135 - 145 mmol/L Potassium, pl 5.6(H) 3.3 - 4.9 mmol/L [facility] ([place]) Chloride 99 97 - 110 mmol/L [facility] ([place]) CO2 25 22 - 32 mmol/L [facility] ([place]) Anion gap 12 2 - 15 mmol/L [facility] ([place]) BUN 57(H) 6 - 25 mg/dL [facility] ([place]) Creatinine 1.23(H) 0.60 - 1.10 mg/dL [facility] ([place]) Glucose 115 70 - 199 mg/dL [facility] ([place]) Comment: Interpretive Data Fasting glucose >/= 126 mg/dl is diagnostic for diabetes. Fasting is defined as no caloric intake for at least 8 hours. Fasting glucose between 100 mg/dl to 125 mg/dl is diagnostic of prediabetes. In a patient with classic symptoms of hyperglycemia or hyperglycemic crisis, a random glucose >/= 200 mg/dl is diagnostic for diabetes. In the absence of unequivocal hyperglycemia, results should be confirmed by repeat testing. The classification and Diagnosis of Diabetes Diabetes Care 2021; 46: S19-S40. Current interpretive data was last revised 2022. Calcium 9.1 8.5 - 10.3 mg/dL [facility] ([place]) Bilirubin, total <0.2 0.1 - 1.2 mg/dL [facility] ([place]) Protein, pl 6.1(L) 6.5 - 8.5 g/dL [facility] ([place]) Albumin 2.5(L) 3.5 - 5.0 g/dL [facility] ([place]) Alk phos 226(H) 40 - 130 Units/L [facility] ([place]) ALT 38 7 - 45 Units/L [facility] ([place]) AST 37 10 - 45 Units/L [facility] ([place]) Blood 08/11/2024 3:58 AM CDT 08/11/2024 4:42 AM CDT us Juan Sorto MD LAB BLOOD ORDERABLES Fi nal Result [facility] ([place]) 1 [facility] Department [place] [address] * POCT glucose (08/11/2024 3:01 AM CDT) [facility] Signature Glucose, POC 155 70 - 199 mg/dL Blood 08/11/2024 3:01 AM CDT 08/11/2024 3:01 AM CDT Marleen Robles MD LAB POCT ORDERABLES - DEVICE Final Result RUSTY TALBOT ([place]) 1 [facility] [place] [address] * POCT glucose (08/10/2024 7:31 PM CDT) Glucose, POC 136 70 - 199 mg/dL Blood 08/10/2024 7:31 PM CDT 08/10/2024 7:31 PM CDT us Marleen Robles MD LAB POCT ORDERABLES - DEVICE Final Result RUSTY TALBOT ([place]) [address] [place] [address] * POCT glucose (08/10/2024 3:55 PM CDT) Glucose, POC 121 70 - 199 mg/dL Blood 08/10/2024 3:55 PM CDT 08/10/2024 3:55 PM CDT us Marleen Robles MD LAB POCT ORDERABLES - DEVICE Final Result RUSTY TALBOT ([place]) 1 [facility] [place] [address] * POCT glucose (08/10/2024 11:57 AM CDT) Glucose, POC 180 70 - 199 mg/dL Blood 08/10/2024 11:5 7 AM CDT 08/10/2024 11:57 AM CDT us Marleen Robles MD LAB POCT ORDERABLES - DEVICE Final Result RUSTY TALBOT ([place]) 1 [facility] [place] [address] * POCT glucose (08/10/2024 7:23 AM CDT) Glucose, POC 161 70 - 199 mg/dL Blood 08/10/2024 7:23 AM CDT 08/10/2024 7:23 AM CDT Marleen Robles MD LAB POCT ORDERABLES - DEVICE Final Result RUSTY TALBOT ([place]) [address] [place] [address] [place] [address] * (ABNORMAL) eGFR (08/10/2024 3:05 AM CDT) [facility] eGFR 51(L) >=60 mL/min/1. 73 m2 Comment: Interpretive Data [...] interpretive data was last reviewed 2020. Blood 08/10/2024 3:05 AM CDT 08/10/2024 3:41 AM CDT us Juan Sorto MD LAB BLOOD ORDERABLES Fi nal Result RUSTY TALBOT ([place]) 1 [facility] [place] [address] * (ABNORMAL) Differential, auto (08/10/2024 3:05 AM CDT) Neutrophil abs 6.87(H) 1.50 - 6.50 K/cumm Imm gran abs 0.17(H) 0.00 - 0.10 K/cumm [facility] ([place]) Lymphocyte abs 3.50(H) 0.80 - 3.30 K/cumm [facility] ([place]) Monocyte abs 0.77 0.20 - 0.80 K/cumm [facility] ([place]) Eosinophil abs 0.33 0.00 - 0.50 K/cumm [facility] ([place]) Basophil abs 0.06 0.00 - 0.10 K/cumm [facility] ([place]) Neutrophil pct 58.7 % [facility] ([place]) Comment: Interpretive Data Percent cell count reference ranges are not reported, since discordance with absolute values may lead to misinterpretation of CBC data. Current Interpretive Data was last revised on 2017. Imm gran pct 1.5 % [facility] ([place]) Comment: Interpretive Data Percent cell count reference ranges are not reported, since discordance with absolute values may lead to misinterpretation of CBC data. Current Interpretive Data was last revised on 2017. Lymphocyte pct 29.9 % [facility] ([place]) Comment: Interpretive Data Percent cell count reference ranges are not reported, since discordance with absolute values may lead to misinterpretation of CBC data. Current Interpretive Data was last revised on 2017. Monocyte pct 6.6 % [facility] ([place]) Comment: Interpretive Data Percent cell count reference ranges are not reported, since discordance with absolute values may lead to misinterpretation of CBC data. Current Interpretive Data was last revised on 2017. Eosinophil pct 2.8 % [facility] ([place]) Comment: Interpretive Data Percent cell count reference ranges are not reported, since discordance with absolute values may lead to misinterpretation of CBC data. Current Interpretive Data was last revised on 2017. Basophil pct 0.5 % [facility] ([place]) Comment: Interpretive Data Percent cell count reference ranges are not reported, since discordance with absolute values may lead to misinterpretation of CBC data. Current Interpretive Data was last revised on 2017. Blood 08/10/2024 3:05 AM CDT 08/10/2024 3:36 AM CDT us Juan Sorto MD LAB BLOOD ORDERABLES Fi nal Result [facility] ([place]) 1 [facility] [place] [address] * (ABNORMAL) CBC with auto differential (08/10/2024 3:05 AM CDT) WBC 11.70(H) 3.80 - 9.90 K/cumm Hgb 10.7(L) 11.9 - 15.5 g/dL [facility] ([place]) Hct 33.9(L) 35.6 - 45.5 % [facility] ([place]) Plt 317 150 - 400 K/cumm [facility] ([place]) MPV 9.6 9.1 - 12.3 fL [facility] ([place]) RBC 3.81(L) 3.90 - 5.20 M/cumm [facility] ([place]) MCV 89.0 81.3 - 96.4 fL [facility] ([place]) MCH 28.1 27.1 - 33.3 pg [facility] ([place]) MCHC 31.6(L) 32.3 - 35.7 g/dL [facility] ([place]) RDW CV 14.2 11.1 - 14.9 % [facility] ([place]) RDW SD 45.7 35.7 - 48.1 fL [facility] ([place]) NRBC abs 0.00 0.00 - 0.01 K/cumm [facility] ([place]) Blood 08/10/2024 3:05 AM CDT 08/10/2024 3:36 AM CDT us Juan Sorto MD LAB BLOOD ORDERABLES Fi nal Result [facility] ([place]) 1 [facility] [place] [address] * (ABNORMAL) Comprehensive metabolic panel (08/10/2024 3:05 AM CDT) Sodium 137 135 - 145 mmol/L Potassium, pl 5.0(H) 3.3 - 4.9 mmol/L [facility] ([place]) Chloride 101 97 - 110 mmol/L [facility] ([place]) CO2 25 22 - 32 mmol/L [facility] ([place]) Anion gap 11 2 - 15 mmol/L [facility] ([place]) BUN 39(H) 6 - 25 mg/dL [facility] ([place]) Creatinine 1.04 0.60 - 1.10 mg/dL [facility] ([place]) Glucose 94 70 - 199 mg/dL [facility] ([place]) Comment: Interpretive Data Fasting glucose >/= 126 mg/dl is diagnostic for diabetes. Fasting is defined as no caloric intake for at least 8 hours. Fasting glucose between 100 mg/dl to 125 mg/dl is diagnostic of prediabetes. In a patient with classic symptoms of hyperglycemia or hyperglycemic crisis, a random glucose >/= 200 mg/dl is diagnostic for diabetes. In the absence of unequivocal hyperglycemia, results should be confirmed by repeat testing. The classification and Diagnosis of Diabetes Diabetes Care 2021; 46: S19-S40. Current interpretive data was last revised 2022. Calcium 9.1 8.5 - 10.3 mg/dL [facility] ([place]) Bilirubin, total 0.2 0.1 - 1.2 mg/dL [facility] ([place]) Protein, pl 6.5 6.5 - 8.5 g/dL [facility] ([place] Albumin 2.6(L) 3.5 - 5.0 g/dL [facility] ([place]) Alk phos 285(H) 40 - 130 Units/L [facility] ([place]) ALT 51(H) 7 - 45 Units/L [facility] ([place]) AST 68(H) 10 - 45 Units/L [facility] ([place]) Blood 08/10/2024 3:05 AM CDT 08/10/2024 3:41 AM CDT us Juan Sorto MD LAB BLOOD ORDERABLES Fi nal Result [facility] ([place]) [address] [place] [address] * POCT glucose (08/10/2024 3:00 AM CDT) Glucose, POC 106 70 - 199 mg/dL Blood 08/10/2024 3:00 AM CDT 08/10/2024 3:00 AM CDT us Cony Fitch MD LAB POCT ORDERABLES - DEV ICE Final Result RUSTY TALBOT ([place]) [address] [place] [address] * (ABNORMAL) POCT glucose (08/09/2024 9:21 PM CDT) Glucose, POC 232(H) 70 - 199 mg/dL Blood 08/09/2024 9:21 PM CDT 08/09/2024 9:21 PM CDT us Cony Fitch MD LAB POCT ORDERABLES - DEV ICE Final Result R[facility] TALBOT (ANUPAMA) 1 [facility] [place] [address] * (ABNORMAL) POCT glucose (08/09/2024 4:23 PM CDT) Glucose, POC 200(H) 70 - 199 mg/dL Blood 08/09/2024 4:23 PM CDT 08/09/2024 4:23 PM CDT Cony Fitch MD LAB POCT ORDERABLES - DEV ICE Final Result RUSTY TALBOT (ANUPAMA) 1 [facility] [place] [address] * POCT glucose (08/09/2024 11:16 AM CDT) Glucose, POC 113 70 - 199 mg/dL Blood 08/09/2024 11:1 6 AM CDT 08/09/2024 11:16 AM CDT Cony Fitch MD LAB POCT ORDERABLES - DEV ICE Final Result RUSTY TALBOT ([place]) 1 [facility] [place] [address] * POCT glucose (08/09/2024 7:21 AM CDT) Glucose, POC 164 70 - 199 mg/dL Blood 08/09/2024 7:21 AM CDT 08/09/2024 7:21 AM CDT Cony Fitch MD LAB POCT ORDERABLES - DEV ICE Final Result Performing Organization Address City/[facility] Co de Phone Number [facility] ([place]) 1 [facility] [place] [address] * (ABNORMAL) eGFR (08/09/2024 3:40 AM CDT) Pathologist [facility] eGFR 52(L) >=60 mL/min/1. 73 m2 Comment: Interpretive Data [...] interpretive data was last reviewed 2020. Blood 08/09/2024 3:40 AM CDT 08/09/2024 4:23 AM CDT us Juan Sorto MD LAB BLOOD ORDERABLES Fi nal Result R[facility]Y [facility] ([place]) 1 [facility] Department [place] [address] * (ABNORMAL) Differential, auto (08/09/2024 3:40 AM CDT) Neutrophil abs 8.20(H) 1.50 - 6.50 K/cumm Imm gran abs 0.19(H) 0.00 - 0.10 K/cumm [facility] ([place]) Lymphocyte abs 3.15 0.80 - 3.30 K/cumm [facility] ([place]) Monocyte abs 0.97(H) 0.20 - 0.80 K/cumm [facility] ([place]) Eosinophil abs 0.38 0.00 - 0.50 K/cumm [facility] ([place]) Basophil abs 0.06 0.00 - 0.10 K/cumm [facility] ([place]) Neutrophil pct 63.3 % [facility] ([place]) Comment: Interpretive Data Percent cell count reference ranges are not reported, since discordance with absolute values may lead to misinterpretation of CBC data. Current Interpretive Data was last revised on 2017. Imm gran pct 1.5 % [facility] ([place]) Comment: Interpretive Data Percent cell count reference ranges are not reported, since discordance with absolute values may lead to misinterpretation of CBC data. Current Interpretive Data was last revised on 2017. Lymphocyte pct 24.3 % [facility] ([place]) Comment: Interpretive Data Percent cell count reference ranges are not reported, since discordance with absolute values may lead to misinterpretation of CBC data. Current Interpretive Data was last revised on 2017. Monocyte pct 7.5 % [facility] ([place]) Comment: Interpretive Data Percent cell count reference ranges are not reported, since discordance with absolute values may lead to misinterpretation of CBC data. Current Interpretive Data was last revised on 2017. Eosinophil pct 2.9 % [facility] ([place]) Comment: Interpretive Data Percent cell count reference ranges are not reported, since discordance with absolute values may lead to misinterpretation of CBC data. Current Interpretive Data was last revised on 2017. Basophil pct 0.5 % [facility] ([place]) Comment: Interpretive Data Percent cell count reference ranges are not reported, since discordance with absolute values may lead to misinterpretation of CBC data. Current Interpretive Data was last revised on 2017. Blood 08/09/2024 3:40 AM CDT 08/09/2024 4:15 AM CDT us Juan Sorto MD LAB BLOOD ORDERABLES Fi nal Result [facility]Y [facility] ([place]) 1 [facility] [place] [address] * (ABNORMAL) CBC with auto differential (08/09/2024 3:40 AM CDT) WBC 12.95(H) 3.80 - 9.90 K/cumm Hgb 10.1(L) 11.9 - 15.5 g/dL [facility] ([place]) Hct 33.1(L) 35.6 - 45.5 % [facility] ([place]) Plt 314 150 - 400 K/cumm [facility] ([place]) MPV 9.8 9.1 - 12.3 fL [facility] ([place]) RBC 3.62(L) 3.90 - 5.20 M/cumm [facility] ([place]) MCV 91.4 81.3 - 96.4 fL [facility] ([place]) MCH 27.9 27.1 - 33.3 pg [facility] ([place]) MCHC 30.5(L) 32.3 - 35.7 g/dL [facility] ([place]) RDW CV 13.9 11.1 - 14.9 % [facility] ([place]) RDW SD 47.0 35.7 - 48.1 fL [facility] ([place]) NRBC abs 0.00 0.00 - 0.01 K/cumm [facility] ([place]) Blood 08/09/2024 3:40 AM CDT 08/09/2024 4:15 AM CDT us Juan Sorto MD LAB BLOOD ORDERABLES Fi nal Result [facility] ([place]) 1 [facility] Department [place] [address] * (ABNORMAL) Comprehensive metabolic panel (08/09/2024 3:40 AM CDT) Sodium 134(L) 135 - 145 mmol/L Potassium, pl 5.0(H) 3.3 - 4.9 mmol/L [facility] ([place]) Chloride 99 97 - 110 mmol/L [facility] ([place]) CO2 24 22 - 32 mmol/L [facility] ([place]) Anion gap 11 2 - 15 mmol/L [facility] ([place]) BUN 37(H) 6 - 25 mg/dL [facility] ([place]) Creatinine 1.03 0.60 - 1.10 mg/dL [facility] ([place]) Glucose 172 70 - 199 mg/dL [facility] ([place]) Comment: Interpretive Data Fasting glucose >/= 126 mg/dl is diagnostic for diabetes. Fasting is defined as no caloric intake for at least 8 hours. Fasting glucose between 100 mg/dl to 125 mg/dl is diagnostic of prediabetes. In a patient with classic symptoms of hyperglycemia or hyperglycemic crisis, a random glucose >/= 200 mg/dl is diagnostic for diabetes. In the absence of unequivocal hyperglycemia, results should be confirmed by repeat testing. The classification and Diagnosis of Diabetes Diabetes Care 202; 46: S19-S40. Current interpretive data was last revised 2022. Calcium 8.9 8.5 - 10.3 mg/dL [facility] ([place]) Bilirubin, total 0.2 0.1 - 1.2 mg/dL [facility] ([place]) Protein, pl 6.2(L) 6.5 - 8.5 g/dL [facility] ([place]) Albumin 2.6(L) 3.5 - 5.0 g/dL [facility] ([place]) Alk phos 124 40 - 130 Units/L [facility] ([place]) ALT 26 7 - 45 Units/L [facility] ([place]) AST 31 10 - 45 Units/L [facility] ([place]) Blood 08/09/2024 3:40 AM CDT 08/09/2024 4:23 AM CDT us Juan Sorto MD LAB BLOOD ORDERABLES Fi nal Result RUTSY TALBOT ([place]) 1 [facility] [place] [address] * (ABNORMAL) POCT glucose (08/09/2024 2:44 AM CDT) Glucose, POC 202(H) 70 - 199 mg/dL Blood 08/09/2024 2:44 AM CDT 08/09/2024 2:44 AM CDT us Cony Fitch MD LAB POCT ORDERABLES - DEV ICE Final Result Performing Organization Address City/[facility] Co de Phone Number RUSTY TALBOT ([place]) 1 [facility] [place] [address] * (ABNORMAL) POCT glucose (08/08/2024 7:50 PM CDT) Glucose, POC 324(H) 70 - 199 mg/dL Blood 08/08/2024 7:50 PM CDT 08/08/2024 7:50 PM CDT Cony Fitch MD LAB POCT ORDERABLES - DEV ICE Final Result RUSTY TALBOT ([place]) 1 [facility] [place] [address] * (ABNORMAL) POCT glucose (08/08/2024 4:23 PM CDT) Glucose, POC 249(H) 70 - 199 mg/dL Blood 08/08/2024 4:23 PM CDT 08/08/2024 4:23 PM CDT Cony Fitch MD LAB POCT ORDERABLES - DEV ICE Final Result Performing Organization Address City/[facility] Co de Phone Number RUSTY TALBOT ([place]) 1 [facility] [place] [address] * (ABNORMAL) POCT glucose (08/08/2024 11:18 AM CDT) Glucose, POC 228(H) 70 - 199 mg/dL Blood 08/08/2024 11:1 8 AM CDT 08/08/2024 11:18 AM CDT Cony Fitch MD LAB POCT ORDERABLES - DEV ICE Final Result Performing Organization Address [facility] de Phone Number [facility]Y [facility] ([place]) 1 [facility] [place] [address] * POCT glucose (08/08/2024 7:24 AM CDT) Glucose, POC 157 70 - 199 mg/dL Blood 08/08/2024 7:24 AM CDT 08/08/2024 7:24 AM CDT Cony Fitch MD LAB POCT ORDERABLES - DEV ICE Final Result Performing Organization Address City/[facility] de Phone Number RUSTY TALBOT ([place]) 1 [facility] [place] [address] * (ABNORMAL) eGFR (08/08/2024 3:58 AM CDT) eGFR 47(L) >=60 mL/min/1. 73 m2 Comment: Interpretive Data [...] interpretive data was last reviewed 2020. Blood 08/08/2024 3:58 AM CDT 08/08/2024 4:11 AM CDT us Juan Sorto MD LAB BLOOD ORDERABLES Fi nal Result [facility] ([place]) 1 [facility] [place] [address] * (ABNORMAL) Differential, auto (08/08/2024 3:58 AM CDT) Neutrophil abs 6.70(H) 1.50 - 6.50 K/cumm Imm gran abs 0.18(H) 0.00 - 0.10 K/cumm [facility] ([place]) Lymphocyte abs 3.29 0.80 - 3.30 K/cumm [facility] ([place]) Monocyte abs 0.95(H) 0.20 - 0.80 K/cumm [facility] ([place]) Eosinophil abs 0.38 0.00 - 0.50 K/cumm [facility] ([place]) Basophil abs 0.07 0.00 - 0.10 K/cumm [facility] ([place]) Neutrophil pct 57.9 % [facility] ([place]) Comment: Interpretive Data Percent cell count reference ranges are not reported, since discordance with absolute values may lead to misinterpretation of CBC data. Current Interpretive Data was last revised on 2017. Imm gran pct 1.6 % [facility] ([place]) Comment: Interpretive Data Percent cell count reference ranges are not reported, since discordance with absolute values may lead to misinterpretation of CBC data. Current Interpretive Data was last revised on 2017. Lymphocyte pct 28.4 % [facility] ([place]) Comment: Interpretive Data Percent cell count reference ranges are not reported, since discordance with absolute values may lead to misinterpretation of CBC data. Current Interpretive Data was last revised on 2017. Monocyte pct 8.2 % [facility] ([place]) Comment: Interpretive Data Percent cell count reference ranges are not reported, since discordance with absolute values may lead to misinterpretation of CBC data. Current Interpretive Data was last revised on 2017. Eosinophil pct 3.3 % [facility] ([place]) Comment: Interpretive Data Percent cell count reference ranges are not reported, since discordance with absolute values may lead to misinterpretation of CBC data. Current Interpretive Data was last revised on 2017. Basophil pct 0.6 % [facility] ([place]) Comment: Interpretive Data Percent cell count reference ranges are not reported, since discordance with absolute values may lead to misinterpretation of CBC data. Current Interpretive Data was last revised on 2017. Blood 08/08/2024 3:58 AM CDT 08/08/2024 4:11 AM CDT us Juan Sorto MD LAB BLOOD ORDERABLES nal Result RUSTY TALBOT ([place]) 1 [facility] Department [place] [address] * (ABNORMAL) CBC with auto differential (08/08/2024 3:58 AM CDT) WBC 11.57(H) 3.80 - 9.90 K/cumm Hgb 10.6(L) 11.9 - 15.5 g/dL RUSTY TALBOT ([place]) Hct 33.5(L) 35.6 - 45.5 % [facility] ([place]) Plt 271 150 - 400 K/cumm [facility] ([place]) MPV 9.8 9.1 - 12.3 fL [facility] ([place]) RBC 3.75(L) 3.90 - 5.20 M/cumm [facility] ([place]) MCV 89.3 81.3 - 96.4 fL [facility] ([place]) MCH 28.3 27.1 - 33.3 pg [facility] ([place]) MCHC 31.6(L) 32.3 - 35.7 g/dL [facility] ([place]) RDW CV 13.9 11.1 - 14.9 % [facility] ([place]) RDW SD 45.6 35.7 - 48.1 fL [facility] ([place]) NRBC abs 0.00 0.00 - 0.01 K/cumm [facility] ([place]) Blood 08/08/2024 3:58 AM CDT 08/08/2024 4:11 AM CDT us Juan Sorto MD LAB BLOOD ORDERABLES [facility] Result [facility] 1 [facility] Department [place] [address] * (ABNORMAL) Comprehensive metabolic panel (08/08/2024 3:58 AM CDT) Sodium 134(L) 135 - 145 mmol/L Potassium, pl 4.6 3.3 - 4.9 mmol/L [facility] ([place]) Chloride 101 97 - 110 mmol/L [facility] ([place]) CO2 23 22 - 32 mmol/L [facility] ([place]) Anion gap 10 2 - 15 mmol/L [facility] ([place]) BUN 35(H) 6 - 25 mg/dL [facility] ([place]) Creatinine 1.13(H) 0.60 - 1.10 mg/dL [facility] ([place]) Glucose 174 70 - 199 mg/dL [facility] ([place]) Comment: Interpretive Data Fasting glucose >/= 126 mg/dl is diagnostic for diabetes. Fasting is defined as no caloric intake for at least 8 hours. Fasting glucose between 100 mg/dl to 125 mg/dl is diagnostic of prediabetes. In a patient with classic symptoms of hyperglycemia or hyperglycemic crisis, a random glucose >/= 200 mg/dl is diagnostic for diabetes. In the absence of unequivocal hyperglycemia, results should be confirmed by repeat testing. The classification and Diagnosis of Diabetes Diabetes Care 2021; 46: S19-S40. Current interpretive data was last revised 2022. Calcium 8.7 8.5 - 10.3 mg/dL [facility] ([place]) Bilirubin, total <0.2 0.1 - 1.2 mg/dL [facility] ([place]) Protein, pl 6.1(L) 6.5 - 8.5 g/dL [facility] ([place]) Albumin 2.6(L) 3.5 - 5.0 g/dL [facility] ([place]) Alk phos 81 40 - 130 Units/L [facility] ([place]) ALT 21 7 - 45 Units/L [facility] ([place]) AST 31 10 - 45 Units/L [facility] ([place]) Blood 08/08/2024 3:58 AM CDT 08/08/2024 4:11 AM CDT us Juan Sorto MD LAB BLOOD ORDERABLES Fi nal Result Performing Organization Address City/[facility]/ZIP Co de Phone Number RUSTY TALBOT (ANUP[place]) 1 [facility] [place] [address] * POCT glucose (08/08/2024 1:52 AM CDT) Glucose, POC 190 70 - 199 mg/dL Blood 08/08/2024 1:52 AM CDT 08/08/2024 1:52 AM CDT Cony Fitch MD LAB POCT ORDERABLES - DEV ICE Final Result [facility] ([place]) 1 [facility] [employer] [place] [address] * (ABNORMAL) POCT glucose (08/07/2024 9:15 PM CDT) Glucose, POC 216(H) 70 - 199 mg/dL Blood 08/07/2024 9:15 PM CDT 08/07/2024 9:15 PM CDT Cony Fitch MD LAB POCT ORDERABLES - DEV ICE Final Result Performing Organization Address City/[facility]/ZIP Co de Phone Number RUSTY TALBOT ([place]) 1 [facility] [place] [address] * (ABNORMAL) POCT glucose (08/07/2024 4:28 PM CDT) Glucose, POC 270(H) 70 - 199 mg/dL Comment:Glu2: RN/ Notified Blood 08/07/2024 4:28 PM CDT 08/07/2024 4:28 PM CDT Cony Fitch MD LAB POCT ORDERABLES - DEV ICE Final Result Performing Organization Address [facility] de Phone Number RUSTY TALBOT ([place]) 1 [facility] [place] [address] * (ABNORMAL) POCT glucose (08/07/2024 11:36 AM CDT) Glucose, POC 300(H) 70 - 199 mg/dL Comment:Glu2: RN/ Notified Blood 08/07/2024 11:3 6 AM CDT 08/07/2024 11:36 AM CDT Cony Fitch MD LAB POCT ORDERABLES - DEV ICE Final Result Performing Organization Address City/[facility] Co de Phone Number RUSTY TALBOT ([place]) 1 [facility] [place] [address] * (ABNORMAL) POCT glucose (08/07/2024 7:21 AM CDT) Glucose, POC 248(H) 70 - 199 mg/dL Blood 08/07/2024 7:21 AM CDT 08/07/2024 7:21 AM CDT us Cony Fitch MD LAB POCT ORDERABLES - DEV ICE Final Result RUSTY TALBOT ([place]) 1 [facility] [place] [address] * (ABNORMAL) eGFR (08/07/2024 2:51 AM CDT) eGFR 55(L) >=60 mL/min/1. 73 m2 Comment: Interpretive Data [...] interpretive data was last reviewed 2020. Blood 08/07/2024 2:51 AM CDT 08/07/2024 4:39 AM CDT us Juan Sorto MD LAB BLOOD ORDERABLES Fi nal Result [facility]Y [facility] ([place]) 1 [facility] [employer] [place] [address] * (ABNORMAL) Differential, auto (08/07/2024 2:51 AM CDT) Neutrophil abs 9.04(H) 1.50 - 6.50 K/cumm Imm gran abs 0.17(H) 0.00 - 0.10 K/cumm [facility] ([place]) Lymphocyte abs 3.61(H) 0.80 - 3.30 K/cumm [facility] ([place]) Monocyte abs 1.01(H) 0.20 - 0.80 K/cumm [facility] ([place]) Eosinophil abs 0.35 0.00 - 0.50 K/cumm [facility] ([place]) Basophil abs 0.07 0.00 - 0.10 K/cumm [facility] ([place]) Neutrophil pct 63.4 % [facility] ([place]) Comment: Interpretive Data Percent cell count reference ranges are not reported, since discordance with absolute values may lead to misinterpretation of CBC data. Current Interpretive Data was last revised on 2017. Imm gran pct 1.2 % [facility] ([place]) Comment: Interpretive Data Percent cell count reference ranges are not reported, since discordance with absolute values may lead to misinterpretation of CBC data. Current Interpretive Data was last revised on 2017. Lymphocyte pct 25.3 % [facility] ([place]) Comment: Interpretive Data Percent cell count reference ranges are not reported, since discordance with absolute values may lead to misinterpretation of CBC data. Current Interpretive Data was last revised on 2017. Monocyte pct 7.1 % [facility] ([place]) Comment: Interpretive Data Percent cell count reference ranges are not reported, since discordance with absolute values may lead to misinterpretation of CBC data. Current Interpretive Data was last revised on 2017. Eosinophil pct 2.5 % [facility] ([place]) Comment: Interpretive Data Percent cell count reference ranges are not reported, since discordance with absolute values may lead to misinterpretation of CBC data. Current Interpretive Data was last revised on 2017. Basophil pct 0.5 % [facility] ([place]) Comment: Interpretive Data Percent cell count reference ranges are not reported, since discordance with absolute values may lead to misinterpretation of CBC data. Current Interpretive Data was last revised on 2017. Blood 08/07/2024 2:51 AM CDT 08/07/2024 4:39 AM CDT Juan Sorto MD LAB BLOOD ORDERABLES Fi nal Result [facility] ([place]) 1 [facility] [place] [employer] [place] [address] * (ABNORMAL) CBC with auto differential (08/07/2024 2:51 AM CDT) WBC 14.25(H) 3.80 - 9.90 K/cumm Hgb 10.4(L) 11.9 - 15.5 g/dL [facility] ([place]) Hct 32.5(L) 35.6 - 45.5 % [facility] ([place]) Plt 296 150 - 400 K/cumm [facility] ([place]) MPV 9.9 9.1 - 12.3 fL [facility] ([place]) RBC 3.70(L) 3.90 - 5.20 M/cumm [facility] ([place]) MCV 87.8 81.3 - 96.4 fL [facility] ([place]) MCH 28.1 27.1 - 33.3 pg [facility] ([place]) MCHC 32.0(L) 32.3 - 35.7 g/dL [facility] ([place]) RDW CV 13.8 11.1 - 14.9 % [facility] ([place]) RDW SD 44.0 35.7 - 48.1 fL [facility] ([place]) NRBC abs 0.00 0.00 - 0.01 K/cumm [facility] ([place]) Blood 08/07/2024 2:51 AM CDT 08/07/2024 4:39 AM CDT Juan Sorto MD LAB BLOOD ORDERABLES Fi nal Result Performing Organization Address City/[facility]/ZIP Co de Phone Number [facility] ([place]) 1 [facility] [place] [employer] [place] [address] * (ABNORMAL) Comprehensive metabolic panel (08/07/2024 2:51 AM CDT) Sodium 133(L) 135 - 145 mmol/L Potassium, pl 4.3 3.3 - 4.9 mmol/L [facility] ([place]) Chloride 99 97 - 110 mmol/L [facility] ([place]) CO2 24 22 - 32 mmol/L [facility] ([place]) Anion gap 10 2 - 15 mmol/L [facility] ([place]) BUN 29(H) 6 - 25 mg/dL [facility] ([place]) Creatinine 0.98 0.60 - 1.10 mg/dL [facility] ([place]) Glucose 255(H) 70 - 199 mg/dL [facility] ([place]) Comment: Interpretive Data Fasting glucose >/= 126 mg/dl is diagnostic for diabetes. Fasting is defined as no caloric intake for at least 8 hours. Fasting glucose between 100 mg/dl to 125 mg/dl is diagnostic of prediabetes. In a patient with classic symptoms of hyperglycemia or hyperglycemic crisis, a random glucose >/= 200 mg/dl is diagnostic for diabetes. In the absence of unequivocal hyperglycemia, results should be confirmed by repeat testing. The classification and Diagnosis of Diabetes Diabetes Care 2021; 46: S19-S40. Current interpretive data was last revised 2022. Calcium 8.7 8.5 - 10.3 mg/dL [facility] ([place]) Bilirubin, total 0.3 0.1 - 1.2 mg/dL [facility] ([place]) Protein, pl 6.2(L) 6.5 - 8.5 g/dL [facility] ([place]) Albumin 2.6(L) 3.5 - 5.0 g/dL [facility] ([place]) Alk phos 68 40 - 130 Units/L [facility] ([place]) ALT 14 7 - 45 Units/L [facility] ([place]) AST 17 10 - 45 Units/L [facility] ([place]) Blood 08/07/2024 2:51 AM CDT 08/07/2024 4:39 AM CDT Juan Sorto MD LAB BLOOD ORDERABLES Fi nal Result Performing Organization Address [facility] Co de Phone Number RUSTY TALBOT ([place]) 1 [facility] [place] [address] * (ABNORMAL) POCT glucose (08/07/2024 2:11 AM CDT) Glucose, POC 293(H) 70 - 199 mg/dL Blood 08/07/2024 2:11 AM CDT 08/07/2024 2:11 AM CDT us Cony Fitch MD LAB POCT ORDERABLES - DEV ICE Final Result Performing Organization Address [facility] de Phone Number RUSTY TALBOT ([place]) 1 [facility] [place] [address] * Vancomycin level random (08/06/2024 9:07 PM CDT) Vancomycin random 12.0 mcg/mL Comment: Interpretive Data No reference ranges have been established for random drug levels. Current Interpretive Data was last revised on 2020. Blood 08/06/2024 9:07 PM CDT 08/06/2024 9:11 PM CDT Cony Fitch MD LAB BLOOD ORDERABLES Kaylah l Result Performing Organization Address [facility] Co de Phone Number RUSTY TALBOT ([place]) 1 [facility] [place] [address] * (ABNORMAL) POCT glucose (08/06/2024 8:19 PM CDT) Glucose, POC 250(H) 70 - 199 mg/dL Blood 08/06/2024 8:19 PM CDT 08/06/2024 8:19 PM CDT Cony Fitch MD LAB POCT ORDERABLES - DEV ICE Final Result Performing Organization Address [facility]/ZIP Co de Phone Number RUSTY TALBOT ([place]) 1 [facility] [place] [address] * (ABNORMAL) POCT glucose (08/06/2024 4:38 PM CDT) Glucose, POC 277(H) 70 - 199 mg/dL Blood 08/06/2024 4:38 PM CDT 08/06/2024 4:38 PM CDT us Cony Fitch MD LAB POCT ORDERABLES - DEV ICE Final Result RUSTY TALBOT ([place]) 1 [facility] [place] [address] * (ABNORMAL) POCT glucose (08/06/2024 11:57 AM CDT) Glucose, POC 358(H) 70 - 199 mg/dL Blood 08/06/2024 11:5 7 AM CDT 08/06/2024 11:57 AM CDT us Cony Fitch MD LAB POCT ORDERABLES - DEV ICE Final Result RUSTY TALBOT ([place]) 1 [facility] [place] [address] * POCT glucose (08/06/2024 7:59 AM CDT) Glucose, POC 150 70 - 199 mg/dL Blood 08/06/2024 7:59 AM CDT 08/06/2024 7:59 AM CDT us Cony Fitch MD LAB POCT ORDERABLES - DEV ICE Final Result RUSTY TALBOT ([place]) 1 [facility] [place] [address] * (ABNORMAL) eGFR (08/06/2024 3:54 AM CDT) eGFR 54(L) >=60 mL/min/1. 73 m2 Comment: Interpretive Data [...] interpretive data was last reviewed 2020. Blood 08/06/2024 3:54 AM CDT 08/06/2024 4:21 AM CDT us Juan Sorto MD LAB BLOOD ORDERABLES nal Result [facility] ([place]) 1 [facility] [place] [address] * (ABNORMAL) Differential, auto (08/06/2024 3:54 AM CDT) Neutrophil abs 9.17(H) 1.50 - 6.50 K/cumm Imm gran abs 0.13(H) 0.00 - 0.10 K/cumm [facility] ([place]) Lymphocyte abs 2.87 0.80 - 3.30 K/cumm [facility] ([place]) Monocyte abs 1.10(H) 0.20 - 0.80 K/cumm [facility] ([place]) Eosinophil abs 0.26 0.00 - 0.50 K/cumm [facility] ([place]) Basophil abs 0.05 0.00 - 0.10 K/cumm [facility] ([place]) Neutrophil pct 67.5 % [facility] ([place]) Comment: Interpretive Data Percent cell count reference ranges are not reported, since discordance with absolute values may lead to misinterpretation of CBC data. Current Interpretive Data was last revised on 2017. Imm gran pct 1.0 % [facility] ([place]) Comment: Interpretive Data Percent cell count reference ranges are not reported, since discordance with absolute values may lead to misinterpretation of CBC data. Current Interpretive Data was last revised on 2017. Lymphocyte pct 21.1 % [facility] ([place]) Comment: Interpretive Data Percent cell count reference ranges are not reported, since discordance with absolute values may lead to misinterpretation of CBC data. Current Interpretive Data was last revised on 2017. Monocyte pct 8.1 % [facility] ([place]) Comment: Interpretive Data Percent cell count reference ranges are not reported, since discordance with absolute values may lead to misinterpretation of CBC data. Current Interpretive Data was last revised on 2017. Eosinophil pct 1.9 % [facility] ([place]) Comment: Interpretive Data Percent cell count reference ranges are not reported, since discordance with absolute values may lead to misinterpretation of CBC data. Current Interpretive Data was last revised on 2017. Basophil pct 0.4 % [facility] ([place]) Comment: Interpretive Data Percent cell count reference ranges are not reported, since discordance with absolute values may lead to misinterpretation of CBC data. Current Interpretive Data was last revised on 2017. Blood 08/06/2024 3:54 AM CDT 08/06/2024 4:21 AM CDT us Juan Sorto MD LAB BLOOD ORDERABLES Fi nal Result RUSTY ANTIONE ([place]) 1 [facility] [place] [address] * (ABNORMAL) CBC with auto differential (08/06/2024 3:54 AM CDT) WBC 13.58(H) 3.80 - 9.90 K/cumm Hgb 10.7(L) 11.9 - 15.5 g/dL [facility] ([place]) Hct 33.6(L) 35.6 - 45.5 % [facility] ([place]) Plt 281 150 - 400 K/cumm [facility] ([place]) MPV 9.8 9.1 - 12.3 fL [facility] ([place]) RBC 3.84(L) 3.90 - 5.20 M/cumm [facility] ([place]) MCV 87.5 81.3 - 96.4 fL [facility] ([place]) MCH 27.9 27.1 - 33.3 pg [facility] ([place]) MCHC 31.8(L) 32.3 - 35.7 g/dL [facility] ([place]) RDW CV 13.8 11.1 - 14.9 % [facility] ([place]) RDW SD 44.5 35.7 - 48.1 fL [facility] ([place]) NRBC abs 0.00 0.00 - 0.01 K/cumm [facility] ([place]) Blood 08/06/2024 3:54 AM CDT 08/06/2024 4:21 AM CDT Juan Sorto MD LAB BLOOD ORDERABLES Fi nal Result Performing Organization Address City/[facility]/ZIP Co de Phone Number RUSTY TALBOT ([place]) 1 [facility] [place] [address] * Magnesium (08/06/2024 3:54 AM CDT) Magnesium 1.6 1.4 - 2.5 mg/dL Blood 08/06/2024 3:54 AM CDT 08/06/2024 4:21 AM CDT Juan Sorto MD LAB BLOOD ORDERABLES Fi nal Result [facility] ANTIONE ([place]) 1 [facility] [place] [address] * (ABNORMAL) Comprehensive metabolic panel (08/06/2024 3:54 AM CDT) Sodium 137 135 - 145 mmol/L Potassium, pl 3.9 3.3 - 4.9 mmol/L [facility] ([place]) Chloride 104 97 - 110 mmol/L [facility] ([place]) CO2 23 22 - 32 mmol/L [facility] ([place]) Anion gap 10 2 - 15 mmol/L [facility] ([place]) BUN 26(H) 6 - 25 mg/dL [facility] ([place]) Creatinine 1.00 0.60 - 1.10 mg/dL [facility] ([place]) Glucose 160 70 - 199 mg/dL [facility] ([place]) Comment: Interpretive Data Fasting glucose >/= 126 mg/dl is diagnostic for diabetes. Fasting is defined as no caloric intake for at least 8 hours. Fasting glucose between 100 mg/dl to 125 mg/dl is diagnostic of prediabetes. In a patient with classic symptoms of hyperglycemia or hyperglycemic crisis, a random glucose >/= 200 mg/dl is diagnostic for diabetes. In the absence of unequivocal hyperglycemia, results should be confirmed by repeat testing. The classification and Diagnosis of Diabetes Diabetes Care 2021; 46: S19-S40. Current interpretive data was last revised 2022. Calcium 8.8 8.5 - 10.3 mg/dL [facility] ([place]) Bilirubin, total 0.2 0.1 - 1.2 mg/dL [facility] ([place]) Protein, pl 6.3(L) 6.5 - 8.5 g/dL [facility] ([place]) Albumin 2.6(L) 3.5 - 5.0 g/dL [facility] ([place]) Alk phos 67 40 - 130 Units/L [facility] ([place]) ALT 16 7 - 45 Units/L [facility] ([place]) AST 19 10 - 45 Units/L [facility] ([place]) Blood 08/06/2024 3:54 AM CDT 08/06/2024 4:21 AM CDT us Juan Sorto MD LAB BLOOD ORDERABLES Fi nal Result [facility] ([place]) 1 [facility] [place] [address] * POCT glucose (08/06/2024 3:13 AM CDT) Glucose, POC 189 70 - 199 mg/dL Blood 08/06/2024 3:13 AM CDT 08/06/2024 3:13 AM CDT us Cony Fitch MD LAB POCT ORDERABLES - DEV ICE Final Result Performing Organization Address City/[facility]/ZIP Co de Phone Number RUSTY TALBOT ([place]) 1 [facility] [place] [address] * Vancomycin level random (08/05/2024 10:24 PM CDT) Vancomycin random 7.1 mcg/mL Comment: Interpretive Data No reference ranges have been established for random drug levels. Current Interpretive Data was last revised on 2020. Blood 08/05/2024 10:2 4 PM CDT 08/05/2024 10:27 PM CDT Cony Fitch MD LAB BLOOD ORDERABLES Kaylah l Result Performing Organization Address City/[facility]/ZIP Co de Phone Number RUSTY TALBOT ([place]) 1 [facility] [place] [address] * (ABNORMAL) POCT glucose (08/05/2024 7:49 PM CDT) Glucose, POC 266(H) 70 - 199 mg/dL Blood 08/05/2024 7:49 PM CDT 08/05/2024 7:49 PM CDT Cony Fitch MD LAB POCT ORDERABLES - DEV ICE Final Result Performing Organization Address City/[facility]/ZIP Co de Phone Number RUSTY TALBOT ([place]) 1 [facility] [place] [address] * (ABNORMAL) POCT glucose (08/05/2024 4:41 PM CDT) Glucose, POC 223(H) 70 - 199 mg/dL Blood 08/05/2024 4:41 PM CDT 08/05/2024 4:41 PM CDT us Cony Fitch MD LAB POCT ORDERABLES - DEV ICE Final Result RUSTY TALBOT ([place]) 1 [facility] Department [place] [address] * US Vein Duplex Lower Extremity Bilateral Complete (08/05/2024 1:59 PM CDT) Anatomical Region Laterality Modality Vascular Bilateral Ultrasound 08/06/2024 1:18 AM CDT Narrative 08/06/2024 1:19 AM CDT EXAM DESCRIPTION: US VEIN DUPLEX LOWER EXTREMITY BILATERAL COMPLETE REASON FOR STUDY: rule out dvt TECHNIQUE: Grayscale, color and spectral Doppler imaging of the deep venous system of the bilateral lower extremities was performed. Images stored on PACS. COMPARISON: None FINDINGS: The common femoral, common femoral-saphenous vein confluence, visualized profunda femoral, superficial femoral, and popliteal veins are readily compressible bilaterally with no intraluminal thrombus on mitchell scale images. There is normal color and spectral Doppler signal, including augmentation. Greater saphenous vein appears patent. Visualized calf veins are patent. IMPRESSION: No lower extremity deep venous thrombosis. THIS IS AN ELECTRONICALLY VERIFIED FINAL REPORT 08/06/2024 1:19 AM - Electronically signed by Eduar Reza M.D. AR: KIMBERLY Report ID: [id number] Reading Location: [id number] Procedure Note Eduar Reza MD - 08/06/2024 EXAM DESCRIPTION: US VEIN DUPLEX LOWER EXTREMITY BILATERAL COMPLETE REASON FOR STUDY: rule out dvt TECHNIQUE: Grayscale, color and spectral Doppler imaging of the deepvenous system of the bilateral lower extremities was performed. Images stored onPACS. COMPARISON: None FINDINGS: The common femoral, common femoral-saphenous vein confluence, visualized profunda femoral, superficial femoral, and popliteal veins are readily compressible bilaterally with no intraluminal thrombus on mitchell scaleimages. There is normal color and spectral Doppler signal, including augmentation. Greater saphenous vein appears patent. Visualized calf veins are patent. IMPRESSION: No lower extremity deep venous thrombosis. THIS IS AN ELECTRONICALLY VERIFIED FINAL REPORT 08/06/2024 1:19 AM - Electronically signed by Eduar Reza M.D. AR: KIMBERLY Report ID: [id number] Reading Location: [place] [address] us Cony Fitch MD IMG US PROCEDURES Final R esult * (ABNORMAL) POCT glucose (08/05/2024 11:43 AM CDT) Glucose, POC 243(H) 70 - 199 mg/dL Blood 08/05/2024 11:4 3 AM CDT 08/05/2024 11:43 AM CDT Cony Fitch MD LAB POCT ORDERABLES - DEV ICE Final Result Performing Organization Address [facility] Co de Phone Number RUSTY TALBOT ([place]) 1 [facility] [place] [address] * (ABNORMAL) POCT glucose (08/05/2024 9:38 AM CDT) Glucose, POC 397(H) 70 - 199 mg/dL Blood 08/05/2024 9:38 AM CDT 08/05/2024 9:38 AM CDT Cony Fitch MD LAB POCT ORDERABLES - DEV ICE Final Result Performing Organization Address City/[facility] Co de Phone Number RUSTY TALBOT ([place]) 1 [facility] [place] [address] * (ABNORMAL) POCT glucose (08/05/2024 7:27 AM CDT) Glucose, POC 329(H) 70 - 199 mg/dL Blood 08/05/2024 7:27 AM CDT 08/05/2024 7:27 AM CDT Cony Fitch MD LAB POCT ORDERABLES - DEV ICE Final Result [facility] ([place]) 1 [facility] [place] [address] * (ABNORMAL) POCT glucose (08/05/2024 4:09 AM CDT) Glucose, POC 275(H) 70 - 199 mg/dL Blood 08/05/2024 4:09 AM CDT 08/05/2024 4:09 AM CDT Juan Sorto MD LAB POCT ORDERABLES - D EVICE Final Result Performing Organization Address City/[facility]/ZIP Co de Phone Number [facility] ([place]) 1 [facility] [place] [address] * (ABNORMAL) eGFR (08/05/2024 3:34 AM CDT) eGFR 56(L) >=60 mL/min/1. 73 m2 Comment: Interpretive Data [...] interpretive data was last reviewed 2020. Blood 08/05/2024 3:34 AM CDT 08/05/2024 3:45 AM CDT Sara Hastings MD LAB BLOOD ORDERABLES Kaylah haq Result [facility] 1 [facility] Department [place] [address] * (ABNORMAL) Differential, auto (08/05/2024 3:34 AM CDT) Neutrophil abs 12.87(H) 1.50 - 6.50 K/cumm Imm gran abs 0.10 0.00 - 0.10 K/cumm [facility] ([place]) Lymphocyte abs 0.89 0.80 - 3.30 K/cumm [facility] ([place]) Monocyte abs 0.84(H) 0.20 - 0.80 K/cumm [facility] ([place]) Eosinophil abs 0.04 0.00 - 0.50 K/cumm [facility] ([place]) Basophil abs 0.04 0.00 - 0.10 K/cumm [facility] ([place]) Neutrophil pct 87.0 % [facility] ([place]) Comment: Interpretive Data Percent cell count reference ranges are not reported, since discordance with absolute values may lead to misinterpretation of CBC data. Current Interpretive Data was last revised on 2017. Imm gran pct 0.7 % [facility] ([place]) Comment: Interpretive Data Percent cell count reference ranges are not reported, since discordance with absolute values may lead to misinterpretation of CBC data. Current Interpretive Data was last revised on 2017. Lymphocyte pct 6.0 % [facility] ([place]) Comment: Interpretive Data Percent cell count reference ranges are not reported, since discordance with absolute values may lead to misinterpretation of CBC data. Current Interpretive Data was last revised on 2017. Monocyte pct 5.7 % [facility] ([place]) Comment: Interpretive Data Percent cell count reference ranges are not reported, since discordance with absolute values may lead to misinterpretation of CBC data. Current Interpretive Data was last revised on 2017. Eosinophil pct 0.3 % [facility] ([place]) Comment: Interpretive Data Percent cell count reference ranges are not reported, since discordance with absolute values may lead to misinterpretation of CBC data. Current Interpretive Data was last revised on 2017. Basophil pct 0.3 % [facility] ([place]) Comment: Interpretive Data Percent cell count reference ranges are not reported, since discordance with absolute values may lead to misinterpretation of CBC data. Current Interpretive Data was last revised on 2017. Blood 08/05/2024 3:34 AM CDT 08/05/2024 3:45 AM CDT Sara Hastings MD LAB BLOOD ORDERABLES Kaylah haq Result [facility] ([place]) 1 [facility] Department of Laboratories [place], [place] [id number] * (ABNORMAL) CBC with auto differential (08/05/2024 3:34 AM CDT) WBC 14.78(H) 3.80 - 9.90 K/cumm Hgb 10.9(L) 11.9 - 15.5 g/dL [facility] ([place]) Hct 34.0(L) 35.6 - 45.5 % [facility] ([place]) Plt 298 150 - 400 K/cumm [facility] ([place]) MPV 9.6 9.1 - 12.3 fL [facility] ([place]) RBC 3.88(L) 3.90 - 5.20 M/cumm [facility] ([place]) MCV 87.6 81.3 - 96.4 fL [facility] ([place]) MCH 28.1 27.1 - 33.3 pg [facility] ([place]) MCHC 32.1(L) 32.3 - 35.7 g/dL [facility] ([place]) RDW CV 13.5 11.1 - 14.9 % [facility] ([place]) RDW SD 42.9 35.7 - 48.1 fL [facility] ([place]) NRBC abs 0.00 0.00 - 0.01 K/cumm [facility] ([place]) Blood 08/05/2024 3:34 AM CDT 08/05/2024 3:45 AM CDT Sara Hastings MD LAB BLOOD ORDERABLES Kaylah l Result [facility] ([place]) 1 [facility] [place] [address] * Magnesium (08/05/2024 3:34 AM CDT) Pathologist [facility] Magnesium 1.6 1.4 - 2.5 mg/dL Blood 08/05/2024 3:34 AM CDT 08/05/2024 3:45 AM CDT Juan Sorto MD LAB BLOOD ORDERABLES Fi nal Result Performing Organization Address [facility] Co de Phone Number [facility] ([place]) 1 [facility] [place] [address] * (ABNORMAL) Comprehensive metabolic panel (08/05/2024 3:34 AM CDT) Sodium 134(L) 135 - 145 mmol/L Potassium, pl 4.0 3.3 - 4.9 mmol/L [facility] ([place]) Chloride 100 97 - 110 mmol/L [facility] ([place]) CO2 22 22 - 32 mmol/L [facility] ([place]) Anion gap 12 2 - 15 mmol/L [facility] ([place]) BUN 25 6 - 25 mg/dL [facility] ([place]) Creatinine 0.97 0.60 - 1.10 mg/dL [facility] ([place]) Glucose 272(H) 70 - 199 mg/dL [facility] ([place]) Comment: Interpretive Data Fasting glucose >/= 126 mg/dl is diagnostic for diabetes. Fasting is defined as no caloric intake for at least 8 hours. Fasting glucose between 100 mg/dl to 125 mg/dl is diagnostic of prediabetes. In a patient with classic symptoms of hyperglycemia or hyperglycemic crisis, a random glucose >/= 200 mg/dl is diagnostic for diabetes. In the absence of unequivocal hyperglycemia, results should be confirmed by repeat testing. The classification and Diagnosis of Diabetes Diabetes Care 2021; 46: S19-S40. Current interpretive data was last revised 2022. Calcium 8.9 8.5 - 10.3 mg/dL [facility] ([place]) Bilirubin, total 0.4 0.1 - 1.2 mg/dL [facility] ([place]) Protein, pl 6.5 6.5 - 8.5 g/dL [facility] ([place]) Albumin 2.8(L) 3.5 - 5.0 g/dL [facility] ([place]) Alk phos 67 40 - 130 Units/L [facility] ([place]) ALT 15 7 - 45 Units/L [facility] ([place]) AST 17 10 - 45 Units/L [facility] ([place]) Blood 08/05/2024 3:34 AM CDT 08/05/2024 3:45 AM CDT us Sara Hastings MD LAB BLOOD ORDERABLES Kaylah l Result Performing Organization Address City/[facility]/ZIP Co de Phone Number RUSTY TALBOT ([place]) 1 [facility] [place] [address] * (ABNORMAL) POCT glucose (08/04/2024 11:07 PM CDT) Glucose, POC 278(H) 70 - 199 mg/dL Blood 08/04/2024 11:0 7 PM CDT 08/04/2024 11:07 PM CDT us Juan Sorto MD LAB POCT ORDERABLES - D EVICE Final Result Performing Organization Address City/[facility] Co de Phone Number RUSTY TALBOT ([place]) 1 [facility] [place] [address] * XR Foot Right 2 Views (08/04/2024 10:11 PM CDT) Anatomical Region Laterality Modality Lower Extremities, Foot Right Computed Radiography 08/04/2024 10:5 6 PM CDT Narrative 08/04/2024 11:02 PM CDT EXAM DESCRIPTION: XR FOOT RIGHT 2 VIEWS REASON FOR STUDY: wound Wounds all over the lower right leg and right foot TECHNIQUE: 2 radiographic view(s) of the right foot . COMPARISON: None FINDINGS: Diffuse severe degenerative changes are noted. 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 Degenerative changes are noted particularly at the base of the great toe and in the midfoot. Diffuse soft tissue swelling is noted. No air is seen in the soft tissues. IMPRESSION: Severe degenerative changes are noted. No definite acute osseous abnormality is seen. No definite osteomyelitis is seen. MRI would be more sensitive and specific. THIS IS AN ELECTRONICALLY VERIFIED FINAL REPORT 08/04/2024 11:02 PM - Electronically signed by Delroy Clemons M.D. KH: MANJIT Report ID: [id number] Reading Location: [id number] Procedure Note Delroy Clemons MD - 08/04/2024 EXAM DESCRIPTION: XR FOOT RIGHT 2 VIEWS REASON FOR STUDY: wound Wounds all over the lower right leg and right foot TECHNIQUE: 2 radiographic view(s) of the right foot . COMPARISON: None FINDINGS: Diffuse severe degenerative changes are noted. 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 Degenerative changes are noted particularly at the base of the great toeand in the midfoot. Diffuse soft tissue swelling is noted. No air is seen inthe soft tissues. IMPRESSION: Severe degenerative changes are noted. No definite acute osseousabnormality is seen. No definite osteomyelitis is seen. MRI would be more sensitiveand specific. THIS IS AN ELECTRONICALLY VERIFIED FINAL REPORT 08/04/2024 11:02 PM - Electronically signed by Delroy SARAVIA: MANJIT Report ID: [id number] Reading Location: [id number] Juan Cooper Noreen CARPIO IMG XR PROCEDURES Final Result * XR Tibia Fibula Right 2 Views (08/04/2024 10:11 PM CDT) Anatomical Region Laterality Modality Lower Extremities, Lower Leg Right Com puted Radiography 08/04/2024 11:0 2 PM CDT Narrative 08/04/2024 11:04 PM CDT EXAM DESCRIPTION: XR TIBIA FIBULA RIGHT2 VIEWS REASON FOR STUDY: wound Wounds all over the lower right leg and right foot TECHNIQUE: 4 radiographic view(s) of the right lower leg . COMPARISON: None FINDINGS: BONES/JOINTS: There is no acute fracture, malalignment or osseous abnormality. The bones are osteopenic. Mild degenerative changes are seen of the ankle. SOFT TISSUES: Within normal limits. IMPRESSION: No acute osseous abnormality. THIS IS AN ELECTRONICALLY VERIFIED FINAL REPORT 08/04/2024 11:04 PM - Electronically signed by Delroy SARAVIA: MANJIT Report ID: [id number] Reading Location: [id number] Procedure Note Delroy Clemons MD - 08/04/2024 EXAM DESCRIPTION: XR TIBIA FIBULA RIGHT2 VIEWS REASON FOR STUDY: wound Wounds all over the lower right leg and right foot TECHNIQUE: 4 radiographic view(s) of the right lower leg . COMPARISON: None FINDINGS: BONES/JOINTS: There is no acute fracture, malalignment or osseousabnormality. The bones are osteopenic. Mild degenerative changes are seen of theankle. SOFT TISSUES: Within normal limits. IMPRESSION: No acute osseous abnormality. THIS IS AN ELECTRONICALLY VERIFIED FINAL REPORT 08/04/2024 11:04 PM - Electronically signed by Delroy SARAVIA: MANJIT Report ID: [id number] Reading Location: [place] [address] us Juan Sorto MD IMG XR PROCEDURES Final Result * (ABNORMAL) Urinalysis reflex to microscopic and culture Urine (08/04/2024 9:45 PM CDT) Color, ur Straw Yellow Clarity, ur Clear Clear [facility] ([place]) Specific gravity, ur 1.009 1.003 - 1.030 [facility] ([place]) pH, urine 6.5 [facility] ([place]) Comment: Interpretive Data U rine pH is affected by diet, medications, systemic acid-base disturbances, and renal tubular function. pH may affect urinary stone formation. For example, urine pH below 6.0 may help reduce the tendency for calcium phosphate stones and pH greater than 6.0 may reduce the tendency for uric acid stone formation. Source: [facility] Re[facility] Current Interpretive Data was last revised on 2017 Protein, ur ql 1+(A) Negative [facility] ([place]) Glucose, ur ql 4+(A) Negative [facility] ([place]) Ketones, ur Negative Negative [facility] ([place]) Bilirubin, ur Negative Negative [facility] ([place]) Blood, ur 1+(A) Negative [facility] ([place]) Urobilinogen, ur <2.0 <2.0 mg/dL [facility] ([place]) Nitrite, ur Negative Negative [facility] ([place]) Leukocyte esterase, ur Negative Negative [facility] ([place]) UA reflex comment Reflex to microscopic UA will be performed. [facility] ([place]) Urine 08/04/2024 9:45 PM CDT 08/04/2024 9:49 PM CDT us Sara Hastings MD LAB MICROBIOLOGY - GENERA L ORDERABLES Final Result [facility] ([place]) 1 [facility] [place] [address] * (ABNORMAL) Urinalysis, microscopic only (08/04/2024 9:45 PM CDT) WBC, ur 11-20(A) 0 - 5 /HPF RBC, ur 0-2 0 - 2 /HPF [facility] ([place]) Epithelial cells, squamous, ur 1-5 0 - 5 /HPF [facility] ([place]) Bacteria, ur Trace(A) [facility] ([place]) Culture Reflex Comment Reflex to urine culture will be performed. [facility] ([place]) Urine 08/04/2024 9:45 PM CDT 08/04/2024 9:49 PM CDT Sara Hastings MD LAB URINE ORDERABLES Kaylah l Result Performing Organization Address City/[facility]/ZIP Co de Phone Number [facility] ([place]) [address] [place] [address] [place] [address] * Urine culture Urine (08/04/2024 9:45 PM CDT) Report Final Report: No growth Comment:Testing performed by : [facility], [address] [facility] [place]., [address] Urine 08/04/2024 9:45 PM CDT 08/05/2024 12:19 AM CDT Narrative [facility] ([place]) - 08/06/2024 6:24 AM CDT Urine culture reflexed based upon urinalysis results. Testing performed by [facility] Microbiology Laboratory ([phone]) Sara Hastings MD LAB MICROBIOLOGY - GENERA L ORDERABLES Final Result [facility] ([place]) 1 [facility] [place] [place] [address] * (ABNORMAL) POCT glucose (08/04/2024 9:34 PM CDT) Glucose, POC 401(H) 70 - 199 mg/dL Blood 08/04/2024 9:34 PM CDT 08/04/2024 9:34 PM CDT Juan Sorto MD LAB POCT ORDERABLES - D EVICE Final Result RUSTY TALBOT ([place]) 1 [facility] [place] [address] * Blood culture Blood Peripheral (08/04/2024 8:32 PM CDT) Report Final Report: No growth Comment:Testing performed by : [facility], [address] [facility] [place]., [address] Blood (Peripheral) 08/04/2024 8:32 PM CDT 08/04/2024 10:19 PM CDT Narrative RUSTY TALBOT ([place]) - 08/09/2024 7:01 AM CDT From a different site than #1. Draw Blood cultures before administration of Antibiotics Collection->Peripheral 1. Blood cultures are incubated for 4 days on a continuously monitored blood culture system. The first report of a negative culture is issued within 24 hours of receipt of the specimen in the laboratory. 2. Positive culture results are reported as soon as they are detected. 3. The most important factor for detection of microbes in the setting of bloodstream infection is the volume of blood submitted for culture. Failure to collect an optimal blood volume can result in false negative blood cultures. 4. For pediatric patients, the recommended blood volume to collect follows a weight based strategy. See the electronic test catalog for collection instructions. 5. For positive blood cultures, a rapid molecular test may be performed for organism identification using the miguel ePlex blood culture identification panel for gram positive (BCID-GP) and gram negative (BCID-GN) organisms. This nucleic acid amplification test detects microbial DNA in positive blood culture broth. This assay has been cleared by the [place] Food and Drug Administration and its performance characteristics have been verified by the [facility]biology [facility]. For questions about this culture, contact the Microbiology Laboratory at [phone]. Interpretive data was last revised on 23. us Sara Hastings MD LAB MICROBIOLOGY - GENERA L ORDERABLES Final Result Performing Organization Address City/[facility]/ZIP Co de Phone Number RUSTY TALBOT ([place]) 1 [facility] [place] [address] * Blood culture Blood Peripheral (08/04/2024 8:32 PM CDT) Report Final Report: No growth Comment:Testing performed by : [facility], [address] [place]., [address] Blood (Peripheral) 08/04/2024 8:32 PM CDT 08/04/2024 10:19 PM CDT Narrative RUSTY TALBOT ([place]) - 08/09/2024 7:01 AM CDT Draw Blood cultures before administration of Antibiotics Collection->Peripheral 1. Blood cultures are incubated for 4 days on a continuously monitored blood culture system. The first report of a negative culture is issued within 24 hours of receipt of the specimen in the laboratory. 2. Positive culture results are reported as soon as they are detected. 3. The most important factor for detection of microbes in the setting of bloodstream infection is the volume of blood submitted for culture. Failure to collect an optimal blood volume can result in false negative blood cultures. 4. For pediatric patients, the recommended blood volume to collect follows a weight based strategy. See the electronic test catalog for collection instructions. 5. For positive blood cultures, a rapid molecular test may be performed for organism identification using the miguel ePlex blood culture identification panel for gram positive (BCID-GP) and gram negative (BCID-GN) organisms. This nucleic acid amplification test detects microbial DNA in positive blood culture broth. This assay has been cleared by the [place] Food and Drug Administration and its performance characteristics have been verified by the [facility] Microbiology Laboratory. For questions about this culture, contact the Microbiology Laboratory at [phone]. Interpretive data was last revised on 23. us Sara Hastings MD LAB MICROBIOLOGY - GENERA L ORDERABLES Final Result RUSTY TALBOT (ANUPAMA) 1 [facility] [place] [address] * Sepsis Lactate w/ Reflex (08/04/2024 7:17 PM CDT) Sepsis Lactate 1.3 0.7 - 2.0 mmol/L Blood 08/04/2024 7:17 PM CDT 08/04/2024 7:23 PM CDT Sara Hastings MD LAB BLOOD ORDERABLES Kaylah l Result Performing Organization Address City/[facility]/ZIP Co de Phone Number [facility] (ANUPAMA) 1 [facility] [place] [address] * (ABNORMAL) eGFR (08/04/2024 7:17 PM CDT) eGFR 52(L) >=60 mL/min/1. 73 m2 Comment: Interpretive Data [...] interpretive data was last reviewed 2020. Blood 08/04/2024 7:17 PM CDT 08/04/2024 7:23 PM CDT Sara Hastings MD LAB BLOOD ORDERABLES Kaylah l Result [facility]ZACH [facility] (ANUPAMA) 1 [facility] [place] [address] * (ABNORMAL) Differential, auto (08/04/2024 7:17 PM CDT) Neutrophil abs 12.12(H) 1.50 - 6.50 K/cumm Imm gran abs 0.11(H) 0.00 - 0.10 K/cumm [facility] (ANUPAMA) Lymphocyte abs 1.99 0.80 - 3.30 K/cumm [facility] (ANUPAMA) Monocyte abs 1.04(H) 0.20 - 0.80 K/cumm [facility] (ANUPAMA) Eosinophil abs 0.05 0.00 - 0.50 K/cumm [facility] (ANUPAMA) Basophil abs 0.05 0.00 - 0.10 K/cumm [facility] (ANUPAMA) Neutrophil pct 78.9 % CERNE R [facility] (ANUPAMA) Comment: Interpretive Data Percent cell count reference ranges are not reported, since discordance with absolute values may lead to misinterpretation of CBC data. Current Interpretive Data was last revised on 2017. Imm gran pct 0.7 % [facility] (ANUPAMA) Comment: Interpretive Data Percent cell count reference ranges are not reported, since discordance with absolute values may lead to misinterpretation of CBC data. Current Interpretive Data was last revised on 2017. Lymphocyte pct 13.0 % [facility] (ANUPAMA) Comment: Interpretive Data Percent cell count reference ranges are not reported, since discordance with absolute values may lead to misinterpretation of CBC data. Current Interpretive Data was last revised on 2017. Monocyte pct 6.8 % [facility] (ANUPAMA) Comment: Interpretive Data Percent cell count reference ranges are not reported, since discordance with absolute values may lead to misinterpretation of CBC data. Current Interpretive Data was last revised on 2017. Eosinophil pct 0.3 % [facility] (ANUPAMA) Comment: Interpretive Data Percent cell count reference ranges are not reported, since discordance with absolute values may lead to misinterpretation of CBC data. Current Interpretive Data was last revised on 2017. Basophil pct 0.3 % [facility] (ANUPAMA) Comment: Interpretive Data Percent cell count reference ranges are not reported, since discordance with absolute values may lead to misinterpretation of CBC data. Current Interpretive Data was last revised on 2017. Blood 08/04/2024 7:17 PM CDT 08/04/2024 7:23 PM CDT Sara Hastings MD LAB BLOOD ORDERABLES Kaylah l Result [facility] (ANUPAMA) 1 [facility] [place] [address] * (ABNORMAL) CBC with auto differential (08/04/2024 7:17 PM CDT) WBC 15.36(H) 3.80 - 9.90 K/cumm Hgb 12.5 11.9 - 15.5 g/dL [facility] (ANUPAMA) Hct 38.8 35.6 - 45.5 % [facility] (ANUPAMA) Plt 310 150 - 400 K/cumm [facility] (ANUPAMA) MPV 9.7 9.1 - 12.3 fL [facility] (ANUPAMA) RBC 4.46 3.90 - 5.20 M/cumm [facility] (ANUPAMA) MCV 87.0 81.3 - 96.4 fL [facility] (ANUPAMA) MCH 28.0 27.1 - 33.3 pg [facility] (ANUPAMA) MCHC 32.2(L) 32.3 - 35.7 g/dL [facility] (ANUPAMA) RDW CV 13.5 11.1 - 14.9 % [facility] (ANUPAMA) RDW SD 42.5 35.7 - 48.1 fL [facility]ANUPAMA[facility] NRBC abs 0.00 0.00 - 0.01 K/cumm [facility] (ANUPAMA) Blood 08/04/2024 7:17 PM CDT 08/04/2024 7:23 PM CDT Sara Hastings MD LAB BLOOD ORDERABLES Kaylah l Result RUSTY TALBOT (ANUPAMA) 1 [facility] [place] [address] * (ABNORMAL) Comprehensive metabolic panel (08/04/2024 7:17 PM CDT) Sodium 131(L) 135 - 145 mmol/L Potassium, pl 4.5 3.3 - 4.9 mmol/L [facility] (ANUPAMA) Chloride 94(L) 97 - 110 mmol/L [facility] (ANUPAMA) CO2 22 22 - 32 mmol/L [facility] (ANUPAMA) Anion gap 16(H) 2 - 15 mmol/L [facility] (ANUPAMA) BUN 32(H) 6 - 25 mg/dL [facility] (ANUPAMA) Creatinine 1.03 0.60 - 1.10 mg/dL [facility] (ANUPAMA) Glucose 418(H) 70 - 199 mg/dL [facility] (ANUPAMA) Comment: Interpretive Data Fasting glucose >/= 126 mg/dl is diagnostic for diabetes. Fasting is defined as no caloric intake for at least 8 hours. Fasting glucose between 100 mg/dl to 125 mg/dl is diagnostic of prediabetes. In a patient with classic symptoms of hyperglycemia or hyperglycemic crisis, a random glucose >/= 200 mg/dl is diagnostic for diabetes. In the absence of unequivocal hyperglycemia, results should be confirmed by repeat testing. The classification and Diagnosis of Diabetes Diabetes Care 2021; 46: S19-S40. Current interpretive data was last revised 2022. Calcium 9.7 8.5 - 10.3 mg/dL [facility] (ANUPAMA) Bilirubin, total 0.4 0.1 - 1.2 mg/dL [facility] (ANUPAMA) Protein, pl 7.8 6.5 - 8.5 g/dL [facility] (ANUPAMA) Albumin 3.3(L) 3.5 - 5.0 g/dL [facility] (ANUPAMA) Alk phos 82 40 - 130 Units/L [facility] (ANUPAMA) ALT 21 7 - 45 Units/L [facility] (ANUPAMA) AST 17 10 - 45 Units/L [facility] (ANUPAMA) Blood 08/04/2024 7:17 PM CDT 08/04/2024 7:23 PM CDT us Sara Hastings MD LAB BLOOD ORDERABLES Kaylah severino Result RUSTY TALBOT (ANUPAMA) 1 [facility] Department [place] [address] * (ABNORMAL) Tissue aerobic and anaerobic culture and gram stain Tissue Leg, right (07/29/2024 10:10 AM CDT) Direct Specimen Exam Stain: No polymorphonuclear leukocytes seen. No organisms seen. Comment:Testing performed by : [facility], [address] [place] [address]., [id number] Report Final Report: Few Staphylococcus aureus Methicillin susceptible (MSSA) by penicillin binding protein 2a (PBP2a) testing. Few Mixed skin microorganisms. (.) RUSTY TALBOT (ANUPAMA) Comment:Testing performed by : [facility], [address] [place] [address]., [id number] Organism STAPHYLOCOCCUS AUREUS RUSTY TALBOT (ANUPAMA) Organism MIXED SKIN MICROORGANISMS. RUSTY TALBOT (ANUPAMA) Tissue (Leg, right) 07/29/2024 10:10 AM CDT 07/29/2024 6:09 PM CDT Narrative RUSTY TALBOT (ANUPAMA) - 08/03/2024 7:37 AM CDT Specimen received in a sterile container. Testing performed by [facility] Microbiology Laboratory ([phone]) Specimens submitted from normally sterile body sites will have all bacterial morphotypes identified. Specimens that contain grossly mixed can and/or are from body sites that are not normally sterile will be examined for Staphylococcus aureus, Pseudomonas aeruginosa, beta-hemolytic strep, vancomycin-resistant Enterococcus, Bacteroides, Parabacteroides, Clostridium perfringens and fungus. If any of these are isolated, the organism will be reported. Current interpretive data was last revised on 2019. Organism Antibiotic Method Susceptibility Staphylococcus aureus Doxycycline (GALO) INTERPRETATIO N Susceptible Staphylococcus aureus Linezolid (GALO) INTERPRETATIO N Susceptible Staphylococcus aureus Trimethoprim with Sulfamethoxazole (GALO) INTERPRETATION Susceptible Staphylococcus aureus Clindamycin (GALO) INTERPRETATIO N Resistant Staphylococcus aureus Erythromycin (GALO) INTERPRETATIO N Resistant Staphylococcus aureus Vancomycin (GALO) INTERPRETATIO N Susceptible Staphylococcus aureus Oxacillin (GALO) INTERPRETATIO N Susceptible Staphylococcus aureus Cefazolin (GALO) INTERPRETATIO N Susceptible Staphylococcus aureus Ceftriaxone (GALO) INTERPRETATIO N Susceptible Hank Bernard MD LAB MICROBIOLOGY - GENERAL ORDERABLES Final Result RUSTY TALBOT (COBLESKILL) 1 [facility] Department [place] [address] * (ABNORMAL) Lipid panel (10/16/2023 2:36 PM [...] last revised on 2017. Chol/HDL ratio 3 RUSTY CALERO Blood 10/16/2023 2:36 PM CDT 10/16/2023 8:28 PM CDT Faith Hamm NP LAB BLOOD ORDERABLES Final Re sult RUSTY CALERO [address] [address] Department [place] [address] * (ABNORMAL) DIABETES EYE EXAM (04/02/2023 9:12 AM MORTGAGE CLOSER) Historical Provider HEALTH MAINTENANCE Final Result * (ABNORMAL) Albumin Creatinine Ratio, Urine (09/18/2022 12:53 PM CDT) Albumin Ur 1,043.2 mg/L RUSTY QUEZADA H (ANUPAMA) Comment: Interpretive Data No reference range established. Current interpretive data was last revised 2018. Testing performed by: [facility], [address] [place] [address]., [address] Creatinine Ur 92.2 mg/dL RUSTY TALBOT (ANUPAMA) Comment: Interpretive Data No reference range established. Current interpretive data was last revised 2018. Testing performed by: [facility], [address] [place] [address]., [address] Albumin Creatinine Ratio, Ur 1,131(H) 1 - 29 mg/g RUSTY TALBOT (ANUPAMA) Comment:Testing performed by : [facility], [address] [place] [address]., [address] Urine 09/18/2022 12:5 3 PM CDT 09/18/2022 7:11 PM CDT us Natalia Vang DO LAB URINE ORDERABLES Final Result RUSTY TALBOT (ANUPAMA) 1 [facility] Department [place] [address] * Dexa Axial Skeleton Bone Density 1 or 2 Site (08/23/2020 12:03 PM CDT) Anatomical Region Laterality Modality Body N/A Other 08/23/2020 12:3 1 PM CDT Narrative 08/23/2020 12:33 PM CDT EXAM DESCRIPTION: DEXA AXIAL SKELETON BONE DENSITY 1 OR MORE SITES REASON FOR STUDY: Post-menopausal female, screening for osteoporosis. Make Ready Mechanic/Model: Memorop Discovery SL (S/N [id number]) CLINICAL INFORMATION: Current height: 64 inches Maximum [...] by Thomas Davila M.D. AB: Report ID: [id number] Reading Location: [id number] Procedure Note Thomas Davila MD - 08/23/2020 EXAM DESCRIPTION: DEXA AXIAL SKELETON BONE DENSITY 1 OR MORE SITES REASON FOR STUDY: Post-menopausal female, screening for osteoporosis. Make Ready Mechanic/Model: Memorop Discovery SL (S/N [id number]) CLINICAL INFORMATION: Current height: 64 inches Maximum [...] by Thomas Davila M.D. AB: Report ID: [id number] Reading Location: [place] [address] us Natalia Vang DO IMG DXA PROCEDURES Final R esult * DIABETES FOOT EXAM (07/22/2017) Pathologist [facility] Diabetic Foot Exam Unknown us Historical Provider MD HEALTH MAINTENANCE Final Result from Last 3 Months or Most Recently Relevant to Health Maintenance Insurance [facility] [employer] [facility] Address: [facility] [address] [place] [address] [place] [facility] [employer] [employer] [facility] [employer] Address: [address] [address] [place] [address] Advance Directives For more information, please contact: [phone] * Full Code (Latest Code Status on File) Date Activated Date Inactivated Comments 08/04/2024 10:49 PM 08/12/2024 8:43 PM * Full Code Date Activated Date Inactivated Comments 03/16/2023 11:07 AM 03/19/2023 5:51 PM * Full Code Date Activated Date Inactivated Comments 03/13/2023 10:34 PM 03/16/2023 11:07 AM * Full Code Date Activated Date Inactivated Comments 02/08/2023 2:12 PM 02/17/2023 11:23 PM * Full Code Date Activated Date Inactivated Comments 05/07/2021 5:31 PM 05/08/2021 5:50 PM Care Teams Manager Transplant Relationship Specialty Start Date End Date Faith Hamm NP [address] [facility] [address] [place] [address] PCP - General Family Medicine 10/16/23 [place] [address] [address] [facility] [address] [place] [address] Consulting Physician Endocrinology 03/29/18 [place] [address] [address] Consulting Physician Nephrology 02/27/21 Thomas Ordoñez MD [address] [facility]ICAL [facility]COLOGY, [address] [address] Consulting Physician Medical Oncology 05/22/21 Joseph Mccullough MD [address] [place] [address] Consulting Physician Gastroenterology 03/19/23
--- OUTSIDE RECORDS SUMMARY | 2024-09-04 15:36 | XMS_ITS | Encounter Summary ---
Author Organization [facility] Healthcare Address [address] [place] [address] Care Team Providers Care Cyber Systems Engineer Name Role Phone Devaughn Bazan DO Unavailable [phone] Natalia Vang DO Primary Care Provider [phone] Naun Georges MD Unavailable [phone] Frankie Bright MD Unavailable [phone] Di Demarco MD Unavailable [phone] Thomas Ordoñez MD Unavailable Anne Marie Platt [facility] Unavailable [phone] Naun Georges MD Unavailable [phone] Mendez Shine RN Unavailable [phone] Joseph Mccullough MD Unavailable [phone] Faith Hamm NP Primary Care Provider [phone] Encounter Details Date Type Department Care Team (Late st Contact Info) Description 03/26/2021 Telephone [facility] [address] [place] [address] Radha Miller, RN Social History Tobacco Use [...] on file Legal Sex Female 5:37 PM LATEXER Gender Identity Not on file Sexual Orientation Not on file documented as of this encounter Plan of Treatment Upcoming Encounters Date Type Department Care Team (Late st Contact Info) Description 09/06/2024 9:00 AM CDT Hospital Encounter [facility] Operating Room [address] [place] [phone] [place] [address] [place] [address] 09/06/2024 9:00 AM CDT Anesthesia Event [facility] Operating Room [address] [place] [phone] Nadya Bradley, SERG [address] [place] [address] 09/06/2024 9:00 AM CDT - 09/06/2024 11:00 AM CDT Surgery [facility] Operating Room [address] [place] [phone] [place] [address] [place] [address] Colpocleisis Scheduled Procedures Name Priority Associated Diagnoses Date/Ti me COLPOCLEISIS Vaginal vault prolapse 09/06/2024 9:00 AM CDT documented as of this encounter Goals Goal Patient Goal Type Associated Problems Recent Progress Patient-Stated? Author -Pain Behavioral Health Improving(03/2022 12:53 PM LATEXER) Betty Aiken, RN Note: Patient will establish a comfort-function goal and identify the pain level that will allow the patient to perform desired activities and achieve an acceptable quality of life. documented as of this encounter Visit Diagnoses Not on filedocumented in this encounter Additional Health Concerns Infection Onset Date Last Indicated Resolved Time COVID: Suspected 05/03/2021 05/03/2021 05/04/2021 3:05 AM LATEXER COVID: Suspected 05/03/2021 05/03/2021 05/04/2021 7:39 PM LATEXER COVID: Suspected 12/30/2022 12/30/2022 12/30/2022 10:47 AM CDT documented as of this encounter Care Teams Cyber Systems Engineer Relationship Specialty Start Date End Date Natalia Vang DO PCP - General Family Medicine 10/09/17 10/15/23 Faith Hamm NP [address] [facility] [address] [place] [address] PCP - General Family Medicine 10/16/23 Devaughn Bazan DO Surgeon Otolaryngology 03/26/17 11/09/23 [place] [address] [address] [address] Consulting Physician Endocrinology 03/29/18 [place] [address] [address] [address] Anesthesiologist Pain Management 10/20/19 11/09/23 [place] [address] [address] [address] Consulting Physician Nephrology 02/27/21 Thomas Ordoñez MD [address] [facility] MEDICAL ONCOLOGY, [address] [address] Consulting Physician Medical Oncology 05/22/21 Anne Marie Platt, Delmi [address] [facility] [address] [place] [address] Pharmacist Pharmacy 08/23/21 08/25/21 [place] [address] [facility] [address] [place] [address] Consulting Physician Endocrinology 12/15/22 11/09/23 Mendez Shine RN [address] [facility] [address] [place] [address] Air Technician 03/06/23 04/12/23 Joseph Mccullough MD [address] [place] [address] [address] [place] [address] Consulting Physician Gastroenterology 03/19/23 documented as of this encounter
--- OUTSIDE RECORDS SUMMARY | 2024-09-04 15:36 | XMS_ITS | Encounter Summary ---
Author Organization [employer] [facility] Address [address] [place], [place] [address] [place] [address] Phone Care Team Providers Care Logging Shovel Operator Name Role Phone Natalia Vang DO Primary Care Provider [phone] Encounter Details Date Type Department Care Team (Late st Contact Info) Description 09/12/2020 Orders Only [employer] [facility] [address] [place] [address] [address] [place] [address] Di Demarco MD [address] [facility]. [address] [place], [place] [address] Social History Tobacco Use Types Packs/Day Years [...] on filedocumented in this encounter Care Teams Logging Shovel Operator Relationship Specialty Start Date End Date Natalia Vang DO [address] [place] [address] PCP - General Internal Medicine 08/29/20 documented as of this encounter
--- OUTSIDE RECORDS SUMMARY | 2024-09-04 15:36 | XMS_ITS | Clinical Summary ---
Author Organization [facility] Address [address] [place] [address] Care Team Providers Care Poultry Inseminator Name Role Phone Natalia Vang Primary Care Provider [phone] Allergies Active Allergy Reactions Criticality Noted Date [...] remains within goal, keep sidney appt with loom changer. Cont current mgmt. Type 2 diabetes mellitus [...] Comments Blood Pressure 122/80 02/01/2021 11:40 AM ENTRY LEVEL ACCOUNTANT Pulse 68 02/01/2021 11:40 AM ENTRY LEVEL ACCOUNTANT Temperature 36.3 C (97.3 F) 02/01/2021 11:40 AM ENTRY LEVEL ACCOUNTANT Respiratory Rate 19 10/03/2020 1:56 PM CDT Oxygen Saturation 97% 02/01/2021 11:40 AM ENTRY LEVEL ACCOUNTANT Inhaled Oxygen Concentration - - Weight 68.3 kg (150 lb 8 oz) 02/01/2021 11:40 AM ENTRY LEVEL ACCOUNTANT Height 162.6 cm (5' 4) 02/01/2021 11:40 AM ENTRY LEVEL ACCOUNTANT Body Mass Index 25.83 02/01/2021 11:40 AM ENTRY LEVEL ACCOUNTANT Plan of Treatment Health Maintenance Due Date [...] patient's age to complete this topic Insurance [facility] Care Teams Poultry Inseminator Relationship Specialty Start Date End Date Natalia Vang DO [address] [place] [address] PCP - General Internal Medicine 08/29/20
--- OUTSIDE RECORDS SUMMARY | 2024-09-04 15:36 | XMS_ITS | Clinical Summary ---
Author Organization [facility] Address [address] [place] [address] Care Team Providers Care Seat Pack Inspector Name Role Phone Naun Georges MD Unavailable [phone] iD Demarco MD Unavailable Thomas Ordoñez MD Unavailable Joseph Mccullough MD Unavailable [phone] Faith Hamm NP Primary Care Provider [phone] Allergies Active Allergy Reactions Criticality Noted Date Comments Codeine Chest tightness Medium Has tolerated percocet Penicillins Rash Medium Per chart records, cefazolin, ceftriaxone, cefdinir, and cefepime have been given before Medications blood-glucose meter (CONTOUR NEXT METER) misc Contour [...] Device misc TEST 2 TIMES A DAY 020 Active Comfort EZ Insulin Syringe 1 mL 31 gauge x 5/16 syringe USE TO INJECT 4 TIMES A DAY 020 Active Easy Touch Lancets 28 gauge misc TEST 2 TIMES A DAY 020 Active brimonidine (ALPHAGAN) 0.2 % ophthalmic solution Administer 1 drop into the left eye 2 (two) times a day 022 Active polyvinyl alcohol-povido ne (REFRESH CLASSIC) 1.4-0.6 % dropperetteInd ications:Dry Eye Administer 1 drop into the right eye 3 (three) times a day as needed for dry eyes 023 Active pen needle, diabetic (Pen Needle) 31 gauge x 5/16 needleIndicati ons:Type 2 diabetes mellitus with hyperglycemia, with long-term current use of insulin ([facility]) Use to inject 4 times daily as directed. 400 each 1 024 Active semaglutide 0.25 mg or 0.5 mg (2 mg/3 mL) pen injector injectionIndic ations:type 2 diabetes mellitus Inject 0.25 mg under the skin once a week 9 mL 3 024 2024 Active furosemide (LASIX) 20 mg tablet Take 1 tablet (20 mg total) by mouth daily as needed (swelling in feet) 30 tablet 1 025 Active oxyCODONE (ROXICODONE) 5 mg immediate release tabletIndicati ons:Pain Take 1 tablet (5 mg total) by mouth nightly as needed for pain 30 tablet 025 2024 Active Contour Next Test Strips stripIndicatio ns:Type 2 diabetes mellitus with hyperglycemia, with long-term current use of insulin ([facility]) TEST BLOOD SUGAR FOUR TIMES DAILY 300 strip 4 025 Active ciprofloxacin (CIPRO) 500 mg tablet Take [...] within 12 hours or as directed by . 023 2024 Discontinued(E rror) dorzolamide-ti moloL (COSOPT) [...] hyperglycemia, with long-term current use of insulin ([facility]) INJECT 8-14 UNITS UNDER SKIN [...] disease due to type 2 diabetes mellitus ([facility]),Type 2 diabetes mellitus with stage 3a chronic kidney disease, with long-term current use of insulin ([facility]) Take 1 tablet (2.5 mg [...] 01/01 Assessment & Plan (01/20/2024 8:47 PM INDUSTRIAL PAINTER): Annual Medicare wellness exam completed today. All [...] 04/09/2023 Assessment & Plan (04/09/2023 4:00 PM INDUSTRIAL PAINTER): Due to patient's current condition of odontoid fracture, and the fact that she has in a neck brace, she has increased risk for balance issues and falling. Patient would benefit from home physical therapy/occupational therapy. Both of these services were ordered during patient's hospital discharge planning. Dependent edema 04/07/2023 Assessment & Plan (07/06/2024 7:00 PM CDT): Assessment & Plan (04/08/2023 10:01 AM INDUSTRIAL PAINTER): Trial of low-dose furosemide. Encouraged use of compression stocking, elevated legs above heart when possible. Follow advise of PT/OT. H/O gastrointestinal hemorrhage 03/13/2023 Right adrenal mass 02/10/2023 Assessment & Plan (02/12/2023 1:47 PM INDUSTRIAL PAINTER): #Indeterminate hypoattenuating lesion within the left inferior [...] 2022 Assessment & Plan (04/08/2023 10:00 AM INDUSTRIAL PAINTER): Slowly improving, currently in a neck brace. Keep sidney appts with specialists. Assessment & Plan (02/16/2023 12:26 PM INDUSTRIAL PAINTER): # C2 type II odontoid fracture with epidural hematoma - NSGY Spine consult (Dr. Rodriguez) - CTA head/neck - no evidence of vascular injuries - Pain control - [place] J at all times - Q4H NCs [...] the cervical spine -- Continue to wear [place] J brace at all times Closed fracture of spinous process of thoracic v ertebra 02/09/2023 Assessment & Plan (02/09/2023 11:52 AM INDUSTRIAL PAINTER): T4 spinous process fx - PT/OT - Pain control At risk for inadequate oral intake 02/09/2023 Assessment & Plan (02/10/2023 1:33 PM INDUSTRIAL PAINTER): - Patient reports having poor intake due to throat pain/[place] J - Supplements ordered - 02/10 re-educated patient on goal of at least 1 Ensure per mealtime Other closed displaced odontoid fracture, initia l encounter 02/08/2023 Ductal carcinoma of breast, right 04/11/2021 Recurrent malignant neoplasm of right breast 11/2021 Overview (09/18/2022): Assessment: Right breast invasive ductal cancer stage I A ER positive RI positive Lumpectomy plus radiation followed by anastrozole for 5 years. Second right breast cancer, invasive ductal with lobular features-04/09/2021 Grade 1 ER positive RI positive HER2 0 Ki-67 15% Shows simple [...] 02/07/2021 Assessment & Plan (02/07/2021 10:19 AM INDUSTRIAL PAINTER): Trial of famotidine. Abnormal mammogram of right [...] PM CDT): Advise to keep following with interventional physician Assessment & Plan (08/31/2020 5:39 PM CDT): [...] meds. Assessment & Plan (02/07/2021 10:17 AM INDUSTRIAL PAINTER): At baseline, cont current Rx meds. Assessment & Plan (08/31/2020 5:38 PM CDT): At baseline, cont current mgmt. Assessment & Plan (01/20/2020 12:54 PM INDUSTRIAL PAINTER): Occasional wheezing. Patient home nebulizer machine broke according to the patient. New prescription sent for another home nebulizer. Uses directed. Assessment & Plan (10/20/2019 1:46 PM CDT): Clinically improved, continue current meds. DDD (degenerative disc disease), lumbar 05/10/19 Assessment & Plan (01/20/2020 12:57 PM INDUSTRIAL PAINTER): Encouraged isvtj-hz-dicbhx exercises as tolerated. Managed by pain management. 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 Assessment & Plan (01/20/2020 12:56 PM INDUSTRIAL PAINTER): He is asymptomatic. Continue current medications. Assessment [...] flonase. Assessment & Plan (02/07/2021 10:17 AM INDUSTRIAL PAINTER): Asymptomatic. Stable. Continue current prescription medications. Assessment & Plan (01/20/2020 12:54 PM INDUSTRIAL PAINTER): Stable. Cont. Current meds. Assessment & Plan [...] ENT Assessment & Plan (01/20/2020 12:55 PM INDUSTRIAL PAINTER): Asymptomatic. Managed by ENT. Assessment & Plan (01/16/2019 1:05 PM INDUSTRIAL PAINTER): Resolved. Assessment & Plan (08/05/2017 7:58 AM [...] understanding. Assessment & Plan (01/16/2019 1:04 PM INDUSTRIAL PAINTER): Stable, cont current meds. Assessment & Plan (06/01/2017 1:30 PM CDT): She needs diagnosis of asthma, she needs outpatient pulmonary function test and follow up with medical asst. Also recommend ENT consultation due to sinus [...] 11/26/2016 Assessment & Plan (01/20/2020 12:57 PM INDUSTRIAL PAINTER): Stable. Managed by pain specialist. Assessment & Plan (10/20/2019 1:49 PM CDT): Managed by Pain specialists. Assessment & Plan (01/16/2019 1:05 PM INDUSTRIAL PAINTER): Pain controlled. Diabetic peripheral neuropathy 11/26/2016 Assessment & Plan (08/30/2024 8:14 PM CDT): Assessment & Plan (11/10/2023 10:44 AM CDT): Chronic problem. Reviewed foot care; needs to lotion daily. Aware to check feet nightly, not to go barefoot. Assessment & Plan (04/07/2023 11:25 AM INDUSTRIAL PAINTER): May be contributing to her balance issues, in addition to the fact that she recently broke her neck. Patient encouraged to be careful when trying to ambulate and ask for help when needed. Assessment & Plan (09/18/2022 7:31 PM CDT): Stable. Cont. Current prescription medications, gabapentin. Managed by Pain specialists. Assessment & Plan (01/20/2020 12:55 PM INDUSTRIAL PAINTER): Asymptomatic. Managed by Endocrinology. Assessment & Plan (01/16/2019 1:06 PM INDUSTRIAL PAINTER): Clinically improved. Assessment & Plan (06/22/2018 3:50 AM CDT): Patient follows with Dr. Fonseca and receives tramadol p.r.n.. Hold tramadol at this time as patient will be receiving Norcos. OA (osteoarthritis) 11/26/2016 Assessment & Plan (01/16/2019 1:05 PM INDUSTRIAL PAINTER): On tramadol. Polymyalgia rheumatica 11/26/2016 Assessment & Plan (09/18/2022 7:31 PM CDT): Stable. Cont. Current prescription medications, Tramadol, gabapentin, managed by Pain Specialist. Assessment & Plan (01/20/2020 12:57 PM INDUSTRIAL PAINTER): Stable. Managed by pain specialist. Assessment & Plan (10/20/2019 1:48 PM CDT): Managed by pain specialists. Assessment & Plan (01/16/2019 1:06 PM INDUSTRIAL PAINTER): On tramadol. Hyperlipidemia associated with type 2 diabetes macie rosales 05/21/2016 Overview (11/26/2016): Hyperlipidemia Assessment & Plan (11/10/2023 10:17 AM CDT): Chronic problem, at goal on current Rosuvastatin 40mg. Last lipid panel: 10/16/23 LDL=58, TU=879. No changes at this time. Assessment & Plan (10/17/2023 8:00 PM CDT): Continue to limit fats in diet and take atorvastatin 80 mg daily Assessment & Plan (02/09/2023 11:41 AM INDUSTRIAL PAINTER): - Rosuvastatin Assessment & Plan (12/15/2022 11:35 AM CDT): On statin therapy Tolerating well Assessment & Plan (09/18/2022 7:23 PM CDT): LDL at goal of less than 100, continue current prescription medications, rosuvastatin. Assessment & Plan (05/05/2022 11:55 AM INDUSTRIAL PAINTER): Chronic problem, at goal on current Rosuvastatin 40mg. Last lipid panel: 09/09/21 LDL=63, VM=131. No changes at this time. Assessment & Plan (10/27/2021 5:57 PM CDT): LDL at goal of less than 100, continue current prescription medications. Assessment & Plan (09/09/2021 11:32 AM CDT): On statin therapy Tolerating well Assessment & Plan (03/25/2021 1:30 PM INDUSTRIAL PAINTER): On statin therapy Tolerating well Assessment & Plan (02/07/2021 10:17 AM INDUSTRIAL PAINTER): LDL at goal of < 70. Cont current Rx meds. Assessment & Plan (11/19/2020 3:49 PM CDT): On statin therapy Tolerating well Assessment & Plan (01/20/2020 12:53 PM INDUSTRIAL PAINTER): Elevated. Low-cholesterol diet recommended. Continue current medications. Managed by Endocrinology. Assessment & Plan (10/20/2019 1:46 PM CDT): Low chol diet recommended. Cont current mgmt. Assessment & Plan (09/12/2019 10:29 PM CDT): On statin therapy Tolerating well Assessment & Plan (09/04/2018 5:13 PM CDT): On statin therapy Tolerating well Assessment & Plan (06/22/2018 3:47 AM CDT): Continue statin Assessment & Plan (04/27/2018 7:20 AM INDUSTRIAL PAINTER): Lipid abnormalities are worsening. Nutritional counseling was provided. and Pharmacotherapy as ordered. Lipids will be reassessed in 6 months. Assessment & Plan (02/07/2018 11:18 PM INDUSTRIAL PAINTER): Pt on statin therapy Tolerating well Assessment & Plan (10/10/2017 10:42 PM CDT): Lipid abnormalities are unchanged. Nutritional counseling was provided. and Pharmacotherapy as ordered. Lipids will be reassessed in 6 months. Assessment & Plan (03/21/2017 1:22 AM INDUSTRIAL PAINTER): Currently on aspirin and statin will continue [...] Future Assessment & Plan (02/09/2024 8:32 PM INDUSTRIAL PAINTER): eGFR 47 on 09/17/2023. Currently on lisinopril [...] exam Assessment & Plan (02/17/2023 3:04 PM INDUSTRIAL PAINTER): - Home regimen: Novolog slide, insulin glargine [...] [facility]. She was not aware of which medications her mother was on either. Assessment & Plan (05/05/2022 11:56 AM INDUSTRIAL PAINTER): Chronic problem, near goal. A1c slowly trending [...] months Assessment & Plan (03/25/2021 1:46 PM INDUSTRIAL PAINTER): Chronic, uncontrolled, improving slowly A1c today 8.7% [...] meds. Assessment & Plan (01/20/2020 12:53 PM INDUSTRIAL PAINTER): Uncontrolled. Managed by endocrinology. Patient encouraged to [...] months. Assessment & Plan (01/16/2019 1:03 PM INDUSTRIAL PAINTER): Managed by endocrinology. Assessment & Plan (09/04/2018 [...] now , they plan to go to [facility] Reminded to bring in blood sugar diary at next visit. Dietary recommendations for ADA diet. Regular aerobic exercise. Discussed ways to avoid symptomatic hypoglycemia. Discussed sick day management. Discussed foot care. Reminded to get yearly retinal exam. Diabetes will be reassessed in 2 weeks . Assessment & Plan (04/27/2018 7:20 AM INDUSTRIAL PAINTER): Diabetes is improving with treatment. - HbA1c [...] weeks. Assessment & Plan (02/07/2018 11:19 PM INDUSTRIAL PAINTER): Diabetes is worsening. Recent HbA1c 12/2017 - [...] month. Assessment & Plan (01/07/2018 5:29 PM INDUSTRIAL PAINTER): Diabetes is unchanged. Discussed foot care. Reminded to get yearly retinal exam. Keep sidney appt with new Splicer Machine Operator. Changed Levemir to Toujeo in an attempt to lower Rx costs for patient. Instructed her to take the forms for Levemir with her to her new Splicer Machine Operator it Toujeo was not more affordable. Assessment & Plan (10/10/2017 10:43 PM CDT): Diabetes is unchanged. Continue current treatment regimen. Reminded to bring in blood sugar diary at next visit. Dietary recommendations for ADA diet. Diabetes will be reassessed in 6 months. Assessment & Plan (03/21/2017 1:22 AM INDUSTRIAL PAINTER): Poorly controlled type 2 diabetes insulin dependent [...] home. Assessment & Plan (05/05/2022 11:42 AM INDUSTRIAL PAINTER): Chronic problem, well controlled on current carvedilol [...] appointment. Assessment & Plan (03/25/2021 1:30 PM INDUSTRIAL PAINTER): Hypertension is improving with treatment. Continue current treatment regimen. Dietary sodium restriction. Regular aerobic exercise. Blood pressure will be reassessed at the next regular appointment. Assessment & Plan (02/07/2021 10:15 AM INDUSTRIAL PAINTER): Clinically improved, continue current prescription medications. Assessment & Plan (11/19/2020 3:49 PM CDT): Hypertension is improving with treatment. Continue current treatment regimen. Dietary sodium restriction. Regular aerobic exercise. Blood pressure will be reassessed at the next regular appointment. Assessment & Plan (08/31/2020 5:37 PM CDT): BP remains within goal, keep sidney appt with interventional physician. Cont current mgmt. Assessment & Plan (10/20/2019 [...] monitor. Assessment & Plan (04/27/2018 7:20 AM INDUSTRIAL PAINTER): Hypertension is improving with treatment. Continue current treatment regimen. Dietary sodium restriction. Regular aerobic exercise. Blood pressure will be reassessed at the next regular appointment. Assessment & Plan (02/07/2018 11:18 PM INDUSTRIAL PAINTER): Hypertension is chronic, well controlled for pt [...] appointment. Assessment & Plan (03/21/2017 1:23 AM INDUSTRIAL PAINTER): Hypertension fairly controlled Will continue with home lisinopril Chronic diastolic congestive heart failure Assessment & Plan (09/18/2022 7:36 PM CDT): Patient and patient's daughter deny this condition. Reviewed most recent ECHO, results state normal left ventricular diastolic function. . Asked patient to re-establish care with cardiology. Patient is lost to follow up since her customer relations consultant left town. Patient currently asymptomatic. Assessment & Plan (10/20/2019 1:48 PM CDT): At baseline, managed by cardiology. Nocturnal hypoxemia Esophageal dysmotilities Resolved Problems Problem Noted Date Diagnosed Date Resolved Date Discharge planning issues 02/09/2023 Assessment & Plan (02/17/2023 2:44 PM INDUSTRIAL PAINTER): - 02/09 pending PT/OT, c spine xrays, [...] 11/10/2023 Assessment & Plan (05/05/2022 11:08 AM INDUSTRIAL PAINTER): Discussed healthy diet and importance of regular physical activity (20- 30min/day, 150min/wk). 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 Assessment & Plan (03/25/2021 1:53 PM INDUSTRIAL PAINTER): Advised to follow up with Rod Piler Pt has appt on apr 02 2021 Gave instructions for local wound care Acute hypoxemic respiratory failure 04/27/2019 10/20/2019 Acute lower respiratory tract infection 04/27/2019 07/01/2019 BMI 27.0-27.9,adult 01/14/2019 04/21/19 Assessment & Plan (11/18/2019 1:40 PM CDT): Healthy, low carbohydrate lifestyle and exercise Dizziness 01/14/2019 10/20/2019 Assessment & Plan (01/16/2019 1:03 PM INDUSTRIAL PAINTER): May be secondary to anti-hypertensives. Decrease lisinopril [...] tolerated tramadol and has had prescriptions for [place] as in the past. Order patient [place] as p.r.n.. Patient recently had a STEMI in March and is currently on aspirin and Brilinta will have to avoid NSAIDs for now. Assessment & Plan (06/21/2018 12:56 PM CDT): Acute, Worsening, Pt needs I and D and IV antibiotics Pt going to ER now ( [facility] ) Acute pain of right knee 05/04/2018 Assessment & Plan (05/04/2018 3:09 PM INDUSTRIAL PAINTER): Will obtain x-ray. Taking tylenol for pain. Asking for something stronger. Referral to Dr. Bunch, [facility] per pt request. ST elevation myocardial infa [...] 10/09/2017 Assessment & Plan (03/21/2017 1:26 AM INDUSTRIAL PAINTER): The patient was started on the Rocephin [...] Date Type Department Care Team Description 08/31/2024 1:20 PM CDT - 08/31/2024 11:59 PM CDT Hospital Encounter [facility] [address] [place] [address] Pre-operative clearance Discharge Disposition: Discharge to home or self care 08/31/2024 1:18 PM CDT - 08/31/2024 11:59 PM CDT Hospital Encounter [facility] [address] [place] [address] Pre-operative clearance Discharge Disposition: Discharge to home or self care 08/31/2024 Results Follow-Up [facility] Emergency Department [address] [place] [address] Willie Rodríguez PA Urine culture Urine, indwelling catheter 08/31/2024 Results Follow-Up [facility] Primary Care at [address] [phone] Faith Hamm NP ECG 12 lead 08/30/2024 11:30 AM CDT Office Visit [facility] Primary Care at [address] [place] [phone] Faith Hamm NP Pre-operative clearance (Primary Dx); Diabetic peripheral neuropathy (HCC); Cellulitis of right lower extremity; Type 2 diabetes mellitus with stage 3a chronic kidney disease, with long-term current use of insulin (HCC) 08/30/2024 8:45 AM CDT Pre-Admission Testing [facility] Pre Anesthesia Testing [address] [place] [id number] Preoperative testing (Primary Dx) 08/30/2024 Telephone [facility] Primary Care at [address] [place] [address] Noris, Faith L., MASH PREPARATORY OPERATOR Medical Question/Miscellaneous 08/30/2024 Telephone [facility] Home Care Services [address] [place] [address] [address] [place] [address] Raysa Schmidt 08/29/2024 10:03 PM CDT - 08/29/2024 11:20 PM CDT Emergency [facility] Emergency Department [address] [place] [address] Jacob Monae MD Problem with Barone catheter, initial encounter (Primary Dx); Acute cystitis with hematuria Discharge Disposition: Discharge to home or self care 08/25/2024 Telephone [facility] Primary Care at [address] [phone] Faith Hamm NP Additional Services Or Orders 08/17/2024 Telephone [facility] Primary Care at [address] [phone] Faith Hamm NP Appointment Request 08/15/2024 Telephone [facility] Primary Care at [address] [phone] Bertha Kelley MA 08/12/2024 4:35 PM CDT - 08/12/2024 11:59 PM CDT Hospital Encounter [facility] Emergency, Room R Discharge Disposition: Discharge to home or self care 08/09/2024 Results Follow-Up [facility] Primary Care at [address] [phone] Faith Hamm MASH PREPARATORY OPERATOR Comprehensive metabolic panel, CBC with auto differential, Sepsis Lactate w/ Reflex, Additional followed-up results: 57 08/04/2024 6:37 PM CDT - 08/12/2024 4:32 PM CDT Hospital Encounter [facility] Acute Medicine [address] [place] [address] Sara Hastings MD Petters, MD Little Perez Nazanin, MD Quaizar, Huzaifa, MD Cellulitis of right lower extremity (Primary Dx); Hyperglycemia; Hyponatremia; Degeneration of intervertebral disc of lumbar region, unspecified whether pain present; Diabetic peripheral neuropathy (HCC) Discharge Disposition: Discharge to [facility] 08/04/2024 2:00 PM CDT Orders Only [facility] [address] [place] [address] 07/29/2024 9:00 AM CDT Orders Only [facility] [address] [place] [id number] PAD (peripheral artery disease) (Primary Dx); Multiple open wounds of left lower extremity, initial encounter 07/20/2024 9:00 AM CDT Orders Only [facility] [address] [place] [address] 07/13/2024 8:00 AM CDT Orders Only [facility] [address] [place] [id number] Cellulitis of right lower extremity; Venous stasis ulcer of right calf limited to breakdown of skin without varicose veins (HCC); Type 2 diabetes mellitus with stage 3a chronic kidney disease, with long-term current use of insulin (HCC) 07/12/2024 3:19 PM CDT - 07/12/2024 11:59 PM CDT Hospital Encounter [facility] [address] [facility] [address] [place] [address] Thomas Washington MD Degeneration of intervertebral disc of lumbar region, unspecified whether pain present; Diabetic peripheral neuropathy (HCC) Discharge Disposition: Discharge to home or self care 07/06/2024 10:30 AM CDT Office Visit [facility] Primary Care at [address] [place] [phone] Faith Hamm NP Cellulitis of right lower extremity (Primary Dx); Dependent edema; Venous stasis ulcer of right calf limited to breakdown of skin without varicose veins (HCC); Type 2 diabetes mellitus with stage 3a chronic kidney disease, with long-term current use of insulin (HCC) 07/04/2024 10:15 AM CDT Office Visit [facility] [place] [address] [place] [address] Ronel Leung NP Leg swelling (Primary Dx); Dependent edema; Cellulitis of right lower extremity 07/04/2024 Nurse Triage [facility] Primary Care at [address] [place] [address] Faith Hamm NP 06/20/2024 Telephone [facility] [address] [place] [address] [address] [place] [address] Shameka Ray NP from Last 3 Months Immunizations Immunization Administration Dates Next Due COVID-19 mRNA ([employer]) 0.3 m L (10 mcg) vaccine (5-11 [...] Patient Refused),12/08/2022(Deferred: Patient Refused),12/10/2020,12/21/2019 PPD TEST 03/21/2023,02/19/2023 [employer] SARS-CoV-2 Monovalent Vaccination (12+ Yrs) PURPLE 05/08/2020,04/29/2020 [...] - 03/01/2015 lt Hip Surgery BREAST SURGERY Right CARDIAC SURGERY 03/02/2018 - 03/01/2019 stent placed BREAST CYST EXCISION 1989? Left unsure which side BREAST LUMPECTOMY 03/02/2011 - 03/01/2012 Right breast ca with radiation HYSTERECTOMY 03/02/1969 - 03/01/1970 OOPHORECTOMY BREAST BIOPSY 04/09/2021 Right MASTECTOMY 03/02/2021 - 03/01/2022 right side. COLONOSCOPY TOE AMPUTATION Right ESOPHAGOGASTRODUODENOSCOPY W / BANDING Medical History Medical History Date Comments Diabetes [...] attack (HCC) Coronary artery disease invo lving stebbins coronary artery without angina pectoris 06/22/2018 Kidney disease History of radiation therapy 2011 rig ht breast Malignant neoplasm of female breast (HCC) 2011 right breast ca Glaucoma left eye Breast cancer (HCC) Vaginal vault prolapse Family History Medical History Relation Name Comments [...] materials from doctor or pharmacy Never 03/11/[address] [facility] Utilities Answer Date Recorded In the past 12 months has UTILICASE, gas, oil, or water [employer] threatened to shut off services in your home? No 08/05/2024 Social Connection and Isolation Panel [NHANES] A nswer Date Recorded In a typical week, how many times do you talk on the phone with family, friends, or neighbors? Twice a week 08/06/19 25 How often do you get togethe r with friends or relatives? Three times a week 08/05/2024 How often do you attend chur or latter-day services? 1 to 4 times per year 08/05/2024 Do you belong to any clubs o r organizations such as sabianism groups, unions, fraternal or athletic groups, or [...] place to sleep or slept in a correction (including now)? No 04/13/2023 PHQ-9 Answer Date [...] any time in the past 12 m [facility], were you homeless or living in a correction (including now)? No 08/05/2024 Personal Safety Answer [...] on file Legal Sex Female 5:37 PM INDUSTRIAL PAINTER Gender Identity Not on file Sexual Orientation [...] Description 09/06/2024 9:00 AM CDT Hospital Encounter [facility] Operating Room [address] [place] [phone] [place] [address] [place] [address] 09/06/2024 9:00 AM CDT Anesthesia Event [facility] Operating Room [address] [place] [phone] Nadya Bradley NP [address] [place] [address] 09/06/2024 9:00 AM CDT - 09/06/2024 11:00 AM CDT Surgery [facility] Operating Room [address] [place] [phone] [place] [address] [place] [address] Colpocleisis Scheduled Procedures Name Priority Associated Diagnoses Date/Ti me COLPOCLEISIS Vaginal vault prolapse 09/06/2024 9:00 AM CDT Health Maintenance Due Date Last Done Comments Albumin Creatinine Ratio, Urine 09/19/2023 09/18/2022, 09/09/2021, 08/23/2020 Foot Exam 12/16/2023 12/15/2022, 08/30, 03/25/2021, Additional history exists Covid-19 Vaccine (2023-2 5 season) 2024 01/20/2024, 12/09/2022, 12/30/2021, Additional history exists Lipid Panel 10/15/2024 10/16/2023, 08/31, 09/09/2021, Additional history exists Influenza Vaccine (#1) 2024 , 12/09/2022, 12/09/2022, Additional history exists Well Visit 65+ 01/19/2025 01/20/2024, 09/30, 09/18/2022, Additional history exists Hemoglobin A1C 03/02/2025 08/30/2024, 10/31, 12/15/2022, Additional history exists Depression Screening 07/12/2025 07/12/2024, 07/12/2024, 03/17/2024, Additional history exists Fall Risk Assessment 08/30/2025 08/30/2024, 01/20/2024, 04/07/2023, Additional history exists eGFR 08/30/2025 08/30/2024, 07/31, 08/11/2024, Additional history exists DTaP/Tdap/Td Vaccine (2 - Td or Tdap) 04/14/2027 04/14/2017, 03/02/2005 Osteoporosis Screening-Bone Density Scan Discontinued 08/23/2020, 08/23/2020, 12/15/2017, Additional history exists Zoster Vaccine Completed 12/03/2020, 05/2020, 07/24/2020, Additional history exists Dilated Eye Exam Discontinued 04/02/2023, , 08/21/2022, Additional history exists Hepatitis B Screening Completed 10/16/2023 Pneumococcal vaccine 65+ Completed 024, 04/14/2017, 03/02/2006 Goals Goal Patient Goal Type Associated Problems Recent Progress Patient-Stated? Author BH-Pain Behavioral Health Improving(03/2022 12:53 PM INDUSTRIAL PAINTER) Betty Aiken, RN Note: Patient will establish a comfort-function goal and identify the pain level that will allow the patient to perform desired activities and achieve an acceptable quality of life. Medical Devices Implanted Type Area Splitter Tender Device Identifier Shelf Expiration Date Model / Serial / Lot Bard Peripheral Vascular [id number] Ultraclip Bard 17ga 10cm 2 Trigger Permanent Ultrasound - [id number] - [id number] Implanted:Qty: 1 on 04/09/2021 by Thomas Davila MD at [facility] Breast Right: Breast [employer] 09/27/2023 [id number] / [id number] / [employer] [id number] Xience Bree 3mm 18mm Rapid Exchange System Coronary Stent - [id number] Implanted:Qty: 1 on 03/12/2018 by Jacob Mary MD at [facility] [employer] 12/06/2018 [id number] Procedures Procedure Name Priority Date/Time Associated Diagnosis [...] DIABETES EYE EXAM Routine 04/02/2023 9:12 AM INDUSTRIAL PAINTER ALBUMIN CREATININE RATIO, URINE Routine 09/18/2022 12:53 [...] Glynn Mosley M.D. MJ: BRADFORD Report ID: [id number] Reading Location: [id number] Procedure Note Glynn Mosley MD - 09/01/2024 [...] Glynn Mosley M.D. MJ: BRADFORD Report ID: [id number] Reading Location: [id number] Faith Hamm NP IMG XR PROCEDURES Final Resul t * ECG 12 lead (08/31/2024 1:38 PM CDT) 08/31/2024 1:28 PM CDT Narrative [facility] - 08/31/2024 2:17 PM CDT Vent Rate: 70 bpm RR Interval: 847 msec RI Interval: 202 msec QRS Duration: 135 msec QT Interval: 421 msec QTC Interval: 442 msec P-R-T [place]: 36 - 95 - -27 degrees IMPRESSION: [...] Faith Hamm NP ECG ORDERABLES Final Result [facility] * eGFR (08/30/2024 10:30 AM CDT) eGFR [...] 0 AM CDT 08/30/2024 10:33 AM CDT us Nadya Bradley NP LAB BLOOD ORDERABLES Fi nal Result [facility] [address] Department [place] [address] * (ABNORMAL) Differential, auto (08/30/2024 10:30 AM CDT) Neutrophil abs 5.50 1.50 - 6.50 K/cumm Imm gran abs 0.03 0.00 - 0.10 K/cumm [facility] Lymphocyte abs 2.84 0.80 - 3.30 K/cumm [facility] Monocyte abs 0.88(H) 0.20 - 0.80 K/cumm [facility] Eosinophil abs 0.62(H) 0.00 - 0.50 K/cumm [facility] Basophil abs 0.04 0.00 - 0.10 K/cumm [facility] Neutrophil pct 55.4 % [facility] Comment: Interpretive Data Percent cell count reference ranges are not reported, since discordance with absolute values may lead to misinterpretation of CBC data. Current Interpretive Data was last revised on 2017. Imm gran pct 0.3 % [facility] Comment: Interpretive Data Percent cell count reference ranges are not reported, since discordance with absolute values may lead to misinterpretation of CBC data. Current Interpretive Data was last revised on 2017. Lymphocyte pct 28.7 % [facility] Comment: Interpretive Data Percent cell count reference ranges are not reported, since discordance with absolute values may lead to misinterpretation of CBC data. Current Interpretive Data was last revised on 2017. Monocyte pct 8.9 % [facility] Comment: Interpretive Data Percent cell count reference ranges are not reported, since discordance with absolute values may lead to misinterpretation of CBC data. Current Interpretive Data was last revised on 2017. Eosinophil pct 6.3 % [facility] Comment: Interpretive Data Percent cell count reference ranges are not reported, since discordance with absolute values may lead to misinterpretation of CBC data. Current Interpretive Data was last revised on 2017. Basophil pct 0.4 % [facility] Comment: Interpretive Data Percent cell count reference ranges are not reported, since discordance with absolute values may lead to misinterpretation of CBC data. Current Interpretive Data was last revised on 2017. Blood 08/30/2024 10:3 0 AM CDT 08/30/2024 10:34 AM CDT us Nadya Bradley MASH PREPARATORY OPERATOR LAB BLOOD ORDERABLES Fi nal Result [facility] [address] Department [place] [address] * (ABNORMAL) CBC with auto differential (08/30/2024 10:30 AM CDT) WBC 9.91(H) 3.80 - 9.90 K/cumm Hgb 11.4(L) 11.9 - 15.5 g/dL [facility] Hct 37.3 35.6 - 45.5 % [facility] Plt 223 150 - 400 K/cumm [facility] MPV 10.8 9.1 - 12.3 fL [facility] RBC 4.05 3.90 - 5.20 M/cumm [facility] MCV 92.1 81.3 - 96.4 fL [facility] MCH 28.1 27.1 - 33.3 pg [facility] MCHC 30.6(L) 32.3 - 35.7 g/dL [facility] RDW CV 14.2 11.1 - 14.9 % [facility] RDW SD 48.1 35.7 - 48.1 fL [facility] NRBC abs 0.00 0.00 - 0.01 K/cumm [facility] Blood 08/30/2024 10:3 0 AM CDT 08/30/2024 10:34 AM CDT Nadya Bradley NP LAB BLOOD ORDERABLES Fi nal Result Performing Organization Address [facility] de Phone Number [facility] [address] [place] [address] * (ABNORMAL) Hemoglobin A1c (08/30/2024 10:30 AM CDT) Pathologist [facility] Hgb A1C 10.3(H) 4.0 - 5.6 % Estimated Average Glucose 249 mg/dL [facility] Comment: The ADA recommends reporting an estimated Average Glucose (eAG) with all Hemoglobin A1c results using the equation derived from a study of 507 normal and diabetic adults. Minority populations were underrepresented and children were not included. (Diabetes Care 31:7505-9863, 2008). The eAG is not equivalent to a fasting glucose. Blood 08/30/2024 10:3 0 AM CDT 08/30/2024 10:34 AM CDT Nadya Bradley NP LAB BLOOD ORDERABLES Fi nal Result Performing Organization Address [facility] Co de Phone Number [facility] [address] Department of [place], [place] [id number] * (ABNORMAL) Basic metabolic panel (08/30/2024 10:30 AM CDT) [facility] Sodium 141 135 - 145 mmol/L Potassium, pl 3.8 3.3 - 4.9 mmol/L [facility] Chloride 108 97 - 110 mmol/L [facility] CO2 21(L) 22 - 32 mmol/L [facility] Anion gap 12 2 - 15 mmol/L [facility] BUN 29(H) 6 - 25 mg/dL [facility] Creatinine 0.92 0.60 - 1.10 mg/dL [facility] Glucose 137 70 - 199 mg/dL [facility] Comment: Interpretive Data Fasting glucose >/= 126 [...] 2022. Calcium 9.1 8.5 - 10.3 mg/dL [facility] Blood 08/30/2024 10:3 0 AM CDT 08/30/2024 10:33 AM CDT us Nadya Bradley NP LAB BLOOD ORDERABLES nal Result [facility] [address] Department [place] [address] * (ABNORMAL) Urinalysis reflex to microscopic and culture Urine, indwelling catheter (08/29/2024 10:22 PM CDT) Color, ur Yellow Yellow Clarity, ur Turbid(A) Clear [facility] ([place]) Specific gravity, ur 1.017 1.003 - 1.030 [facility] ([place]) pH, urine 6.0 [facility] ([place]) Comment: Interpretive Data U rine pH is affected by diet, medications, systemic acid-base disturbances, and renal tubular function. pH may affect urinary stone formation. For example, urine pH below 6.0 may help reduce the tendency for calcium phosphate stones and pH greater than 6.0 may reduce the tendency for uric acid stone formation. Source: [facility] [place] Current Interpretive Data was last revised on [...] O RDERABLES Final Result Performing Organization Address [facility] de Phone Number [facility] ([place]) [address] [place] [address] [place] [address] * (ABNORMAL) Urinalysis, microscopic only (08/29/2024 10:22 PM CDT) WBC, ur >50(A) 0 - 5 /HPF RBC, ur 6-10(A) 0 - 2 /HPF [facility] ([place]) Epithelial cells, squamous, ur 1-5 0 - 5 /HPF [facility] ([place]) Bacteria, ur 1+(A) [facility] ([place]) Mucous, ur Present(A) [facility] ([place]) Culture Reflex Comment Reflex to urine culture will be performed. [facility] ([place]) Urine, indwelling catheter 08/29/2024 10:22 PM CDT 08/29/2024 10:25 PM CDT Jacob Monae MD LAB URINE ORDERABLES Final R esult Performing Organization Address [facility] Co de Phone Number [facility] ([place]) [address] [facility] [place] [address] * (ABNORMAL) Urine culture Urine, indwelling catheter (08/29/2024 10:22 PM CDT) Report Final Report: Greater than or equal to 100,000 colonies/mL of Enterobacter cloacae complex Greater than or equal to 100,000 colonies/mL of Citrobacter koseri (.) Comment:Testing performed by : [facility], [address] [facility] [place] [address] Organism ENTEROBACTER CLOACAE COMPLEX [facility] ([place]) Organism CITROBACTER KOSERI [facility] ([place]) Urine, indwelling catheter 08/29/2024 10:22 PM CDT 08/30/2024 1:36 AM CDT Narrative [facility] ([place]) - 09/01/2024 12:28 PM CDT Urine culture reflexed based upon urinalysis results. Testing performed by [facility] ([phone]) Organism Antibiotic Method Susceptibility Enterobacter cloacae complex [...] Susceptible Citrobacter koseri Piperacillin/Tazobactam INTERPRETAT ION Susceptible us Jacob Monae MD LAB MICROBIOLOGY - GENERAL O RDERABLES Final Result [facility] ([place]) 1 [facility] Department of Laboratories [place], [place] [id number] * POCT glucose (08/12/2024 11:56 AM CDT) Glucose, POC 100 70 - 199 mg/dL Blood 08/12/2024 11:5 6 AM CDT 08/12/2024 11:56 AM CDT Marleen Robles MD LAB POCT ORDERABLES - DEVICE Final Result [facility] ([place]) 1 [facility] [place] [address] * POCT glucose (08/12/2024 8:00 AM CDT) Glucose, POC 88 70 - 199 mg/dL Blood 08/12/2024 8:00 AM CDT 08/12/2024 8:00 AM CDT Marleen Robles MD LAB POCT ORDERABLES - DEVICE Final Result Performing Organization Address City/[facility] de Phone Number [facility] ([place]) 1 [facility] [place] [address] * (ABNORMAL) eGFR (08/12/2024 3:30 AM CDT) Pathologist [facility] eGFR 34(L) >=60 mL/min/1. 73 m2 Comment: [...] BLOOD ORDERABLES Fi nal Result [facility] ([place]) 1 [facility] Department [place] [address] * (ABNORMAL) Differential, auto (08/12/2024 3:30 AM [...] MD LAB BLOOD ORDERABLES Fi nal Result [facility] ([place]) 1 [facility] Department [place] [address] * (ABNORMAL) CBC with auto differential (08/12/2024 [...] RDW SD 46.1 35.7 - 48.1 fL [facility] ([place]) NRBC abs 0.00 0.00 - 0.01 K/cumm [facility] ([place]) Blood 08/12/2024 3:30 AM CDT 08/12/2024 5:17 AM CDT us Juan Sorto MD LAB BLOOD ORDERABLES Fi nal Result [facility] ([place]) 1 [facility] Department [place] [address] * (ABNORMAL) Comprehensive metabolic panel (08/12/2024 3:30 AM CDT) Sodium 136 135 - 145 mmol/L Potassium, pl 5.4(H) 3.3 - 4.9 mmol/L [facility] ([place]) Chloride 99 97 - 110 mmol/L [facility] ([place]) CO2 25 22 - 32 mmol/L [facility] ([place]) Anion gap 12 2 - 15 mmol/L [facility] ([place]) BUN 55(H) 6 - 25 mg/dL [facility] ([place]) Creatinine 1.48(H) 0.60 - 1.10 mg/dL [facility] ([place]) Glucose 193 70 - 199 mg/dL [facility] ([place]) Comment: Interpretive Data Fasting glucose [...] ([place]) AST 29 10 - 45 Units/L [facility] ([place]) Blood 08/12/2024 3:30 AM CDT 08/12/2024 5:17 AM CDT us Juan Sorto MD LAB BLOOD ORDERABLES Fi nal Result [facility] ([place]) 1 [facility] [place] [address] * (ABNORMAL) POCT glucose (08/12/2024 2:43 AM CDT) Glucose, POC 224(H) 70 - 199 mg/dL Blood 08/12/2024 2:43 AM CDT 08/12/2024 2:43 AM CDT Marleen Robles MD LAB POCT ORDERABLES - DEVICE Final Result Performing Organization Address City/[facility]/ZIP Co de Phone Number [facility] ([place]) 1 [facility] [place] [address] * (ABNORMAL) POCT glucose (08/11/2024 8:28 PM CDT) Glucose, POC 201(H) 70 - 199 mg/dL Blood 08/11/2024 8:28 PM CDT 08/11/2024 8:28 PM CDT Marleen Robles MD LAB POCT ORDERABLES - DEVICE Final Result [facility] ([place]) 1 [facility] [place] [address] * POCT glucose (08/11/2024 4:43 PM CDT) Glucose, POC 123 70 - 199 mg/dL Blood 08/11/2024 4:43 PM CDT 08/11/2024 4:43 PM CDT Marleen Robles MD LAB POCT ORDERABLES - DEVICE Final Result Performing Organization Address City/[facility]/ZIP Co de Phone Number [facility] ([place]) 1 [facility] [place] [address] * POCT glucose (08/11/2024 11:19 AM CDT) Glucose, POC 144 70 - 199 mg/dL Blood 08/11/2024 11:1 9 AM CDT 08/11/2024 11:19 AM CDT Marleen Robles MD LAB POCT ORDERABLES - DEVICE Final Result Performing Organization Address [facility] de Phone Number [facility] ([place]) 1 [facility] [place] [address] * POCT glucose (08/11/2024 7:55 AM CDT) Glucose, POC 120 70 - 199 mg/dL Blood 08/11/2024 7:55 AM CDT 08/11/2024 7:55 AM CDT Marleen Robles MD LAB POCT ORDERABLES - DEVICE Final Result Performing Organization Address City/[facility] Co de Phone Number [facility] ([place]) 1 [facility] [place] [address] * (ABNORMAL) eGFR (08/11/2024 3:58 AM CDT) Pathologist [facility] eGFR 42(L) >=60 mL/min/1. 73 m2 Comment: [...] Sorto MD LAB BLOOD ORDERABLES nal Result [facility] ([place]) 1 [facility] Department of Laboratories [place], [place] [id number] * (ABNORMAL) Differential, auto (08/11/2024 3:58 AM [...] BLOOD ORDERABLES Fi nal Result [facility] ([place]) 1 [facility] [place] [address] * (ABNORMAL) CBC with auto differential (08/11/2024 3:58 AM CDT) WBC 11.33(H) 3.80 - 9.90 K/cumm Hgb 10.0(L) 11.9 - 15.5 g/dL [facility] ([place]) Hct 31.5(L) 35.6 - 45.5 % [facility] ([place]) Plt 297 150 - 400 K/cumm [facility] ([place]) MPV 9.6 9.1 - 12.3 fL [facility] ([place] RBC 3.54(L) 3.90 - 5.20 M/cumm [facility] ([place]) MCV 89.0 81.3 - 96.4 fL [facility] ([place]) MCH 28.2 27.1 - 33.3 pg [facility] ([place]) MCHC 31.7(L) 32.3 - 35.7 g/dL [facility] ([place]) RDW CV 14.2 11.1 - 14.9 % [facility] ([place]) RDW SD 45.9 35.7 - 48.1 fL [facility] ([place] NRBC abs 0.00 0.00 - 0.01 K/cumm [facility] ([place] Blood 08/11/2024 3:58 AM CDT 08/11/2024 4:42 AM CDT us Juan Sorto MD LAB BLOOD ORDERABLES nal Result [facility] ([place]) 1 [facility] [place] [address] * (ABNORMAL) Comprehensive metabolic panel (08/11/2024 3:58 AM CDT) Sodium 136 135 - 145 mmol/L Potassium, pl 5.6(H) 3.3 - 4.9 mmol/L [facility] ([place] Chloride 99 97 - 110 mmol/L [facility] ([place]) CO2 25 22 - 32 mmol/L [facility] ([place]) Anion gap 12 2 - 15 mmol/L [facility] ([place]) BUN 57(H) 6 - 25 mg/dL [facility] ([place] Creatinine 1.23(H) 0.60 - 1.10 mg/dL [facility] ([place] Glucose 115 70 - 199 mg/dL [facility] ([place]) Comment: Interpretive Data Fasting glucose [...] BLOOD ORDERABLES Fi nal Result [facility] ([place]) 1 [facility] [place] [address] * POCT glucose (08/11/2024 3:01 AM CDT) [facility] Signature Glucose, POC 155 70 - 199 mg/dL Blood 08/11/2024 3:01 AM CDT 08/11/2024 3:01 AM CDT Marleen Robles MD LAB POCT ORDERABLES - DEVICE Final Result [facility] ([place]) 1 [facility] [email or web address] [place] [address] * POCT glucose (08/10/2024 7:31 PM CDT) Glucose, POC 136 70 - 199 mg/dL Blood 08/10/2024 7:31 PM CDT 08/10/2024 7:31 PM CDT us Marleen Robles MD LAB POCT ORDERABLES - DEVICE Final Result [facility] ([place]) 1 [facility] [place] [address] * POCT glucose (08/10/2024 3:55 PM CDT) Glucose, POC 121 70 - 199 mg/dL Blood 08/10/2024 3:55 PM CDT 08/10/2024 3:55 PM CDT Marleen Robles MD LAB POCT ORDERABLES - DEVICE Final Result Performing Organization Address City/[facility] Co de Phone Number [facility] ([place]) 1 [facility] [place] [address] * POCT glucose (08/10/2024 11:57 AM CDT) Glucose, POC 180 70 - 199 mg/dL Blood 08/10/2024 11:5 7 AM CDT 08/10/2024 11:57 AM CDT Marleen Robles MD LAB POCT ORDERABLES - DEVICE Final Result Performing Organization Address City/[facility]/ZIP Co de Phone Number [facility] ([place]) 1 [facility] [place] [address] * POCT glucose (08/10/2024 7:23 AM CDT) Glucose, POC 161 70 - 199 mg/dL Blood 08/10/2024 7:23 AM CDT 08/10/2024 7:23 AM CDT us Marleen Robles MD LAB POCT ORDERABLES - DEVICE Final Result [facility] ([place]) 1 [facility] Department [place] [address] * (ABNORMAL) eGFR (08/10/2024 3:05 AM CDT) eGFR 51(L) >=60 mL/min/1. 73 m2 Comment: [...] BLOOD ORDERABLES Fi nal Result [facility] ([place]) 1 [facility] Department [place] [address] * (ABNORMAL) Differential, auto (08/10/2024 3:05 AM [...] 3:05 AM CDT 08/10/2024 3:36 AM CDT Juan Sorto MD LAB BLOOD ORDERABLES Fi nal Result [facility] ([place]) 1 [facility] Department [place] [address] * (ABNORMAL) CBC with auto differential (08/10/2024 [...] BLOOD ORDERABLES Fi nal Result [facility] ([place]) 1 [facility] [email or web address] [place] [address] * (ABNORMAL) Comprehensive metabolic panel (08/10/2024 3:05 AM CDT) Pathologist [facility] Sodium 137 135 - 145 mmol/L Potassium, [...] Fi nal Result [facility] ([place]) 1 [facility] [place] [address] * POCT glucose (08/10/2024 3:00 AM CDT) Glucose, POC 106 70 - 199 mg/dL Blood 08/10/2024 3:00 AM CDT 08/10/2024 3:00 AM CDT Cony Fitch MD LAB POCT ORDERABLES - DEV ICE Final Result Performing Organization Address City/[facility]/ZIP Co de Phone Number [facility] ([place]) 1 [facility] [place] [address] * (ABNORMAL) POCT glucose (08/09/2024 9:21 PM CDT) Glucose, POC 232(H) 70 - 199 mg/dL Blood 08/09/2024 9:21 PM CDT 08/09/2024 9:21 PM CDT Cnoy Fitch MD LAB POCT ORDERABLES - DEV ICE Final Result Performing Organization Address City/[facility] Co de Phone Number [facility] ([place]) 1 [facility] [place] [address] * (ABNORMAL) POCT glucose (08/09/2024 4:23 PM CDT) Glucose, POC 200(H) 70 - 199 mg/dL Blood 08/09/2024 4:23 PM CDT 08/09/2024 4:23 PM CDT Cony Fitch MD LAB POCT ORDERABLES - DEV ICE Final Result Performing Organization Address City/[facility]/ZIP Co de Phone Number [facility] ([place]) 1 [facility] [place] [address] * POCT glucose (08/09/2024 11:16 AM CDT) Glucose, POC 113 70 - 199 mg/dL Blood 08/09/2024 11:1 6 AM CDT 08/09/2024 11:16 AM CDT Cony Fitch MD LAB POCT ORDERABLES - DEV ICE Final Result [facility]) 1 [facility] [place] [address] * POCT glucose (08/09/2024 7:21 AM CDT) Glucose, POC 164 70 - 199 mg/dL Blood 08/09/2024 7:21 AM CDT 08/09/2024 7:21 AM CDT Cony Fitch MD LAB POCT ORDERABLES - DEV ICE Final Result Performing Organization Address City/[facility] de Phone Number [facility] ([place]) 1 [facility] [place] [address] * (ABNORMAL) eGFR (08/09/2024 3:40 AM CDT) eGFR 52(L) >=60 mL/min/1. 73 m2 [...] BLOOD ORDERABLES Fi nal Result RUSTY TALBOT ([place]) 1 [facility] [place] [address] * (ABNORMAL) Differential, auto (08/09/2024 3:40 AM CDT) Neutrophil abs 8.20(H) 1.50 - 6.50 K/cumm Imm gran abs 0.19(H) 0.00 - 0.10 K/cumm [facility] ([place]) Lymphocyte abs 3.15 0.80 - 3.30 K/cumm [facility] ([place]) Monocyte abs 0.97(H) 0.20 - 0.80 K/cumm [facility] ([place]) Eosinophil abs 0.38 0.00 - 0.50 K/cumm [facility] ([place]) Basophil abs 0.06 0.00 - 0.10 K/cumm [facility] ([place]) Neutrophil pct 63.3 % [facility] ([place]) Comment: Interpretive [...] ORDERABLES nal Result [facility] ([place]) 1 [facility] Department [place] [address] * (ABNORMAL) CBC with auto differential (08/09/2024 [...] Fi nal Result [facility] ([place]) 1 [facility] [place] [address] * (ABNORMAL) Comprehensive metabolic panel (08/09/2024 3:40 [...] 3:40 AM CDT 08/09/2024 4:23 AM CDT Juan Sorto MD LAB BLOOD ORDERABLES Fi nal Result Performing Organization Address City/[facility]/ZIP Co de Phone Number RUSTY TALBOT ([place]) 1 [facility] [place] [address] * (ABNORMAL) POCT glucose (08/09/2024 2:44 AM CDT) Glucose, POC 202(H) 70 - 199 mg/dL Blood 08/09/2024 2:44 AM CDT 08/09/2024 2:44 AM CDT Cony Fitch MD LAB POCT ORDERABLES - DEV ICE Final Result Performing Organization Address [facility] Co de Phone Number RUSTY TALBOT ([place]) 1 [facility] [place] [address] * (ABNORMAL) POCT glucose (08/08/2024 7:50 PM CDT) Glucose, POC 324(H) 70 - 199 mg/dL Blood 08/08/2024 7:50 PM CDT 08/08/2024 7:50 PM CDT Cony Fitch MD LAB POCT ORDERABLES - DEV ICE Final Result Performing Organization Address City/[facility] Co de Phone Number RUSTY TALBOT ([place]) 1 [facility] [place] [address] * (ABNORMAL) POCT glucose (08/08/2024 4:23 PM CDT) Glucose, POC 249(H) 70 - 199 mg/dL Blood 08/08/2024 4:23 PM CDT 08/08/2024 4:23 PM CDT Cony Fitch MD LAB POCT ORDERABLES - DEV ICE Final Result Performing Organization Address [facility] Co de Phone Number RUSTY TALBOT ([place]) 1 [facility] [place] [address] * (ABNORMAL) POCT glucose (08/08/2024 11:18 AM CDT) Glucose, POC 228(H) 70 - 199 mg/dL Blood 08/08/2024 11:1 8 AM CDT 08/08/2024 11:18 AM CDT Cony Fitch MD LAB POCT ORDERABLES - DEV ICE Final Result Performing Organization Address [facility] Co de Phone Number RUSTY TALBOT ([place]) 1 [facility] [place] [address] * POCT glucose (08/08/2024 7:24 AM CDT) Glucose, POC 157 70 - 199 mg/dL Blood 08/08/2024 7:24 AM CDT 08/08/2024 7:24 AM CDT Cony Fitch MD LAB POCT ORDERABLES - DEV ICE Final Result Performing Organization Address City/[facility] Co de Phone Number RUSTY TALBOT ([place]) 1 [facility] [place] [address] * (ABNORMAL) eGFR (08/08/2024 3:58 AM CDT) [...] BLOOD ORDERABLES Fi nal Result RUSTY TALBOT ([place]) 1 [facility] [place] [address] * (ABNORMAL) Differential, auto (08/08/2024 3:58 AM [...] revised on 2017. Lymphocyte pct 28.4 % [facility] ([place]) Comment: Interpretive Data Percent [...] LAB BLOOD ORDERABLES Fi nal Result RUSTY TALBTO ([place]) 1 [facility] [place] [address] * (ABNORMAL) CBC with auto differential (08/08/2024 3:58 AM CDT) WBC 11.57(H) 3.80 - 9.90 K/cumm Hgb 10.6(L) 11.9 - 15.5 g/dL RUSTY TALBOT ([place]) Hct 33.5(L) 35.6 - 45.5 % RUSTY TALBOT ([place]) Plt 271 150 - 400 K/cumm RUSTY TALBOT ([place]) MPV 9.8 9.1 - 12.3 fL [facility] ([place]) RBC 3.75(L) 3.90 - 5.20 M/cumm [facility] ([place]) MCV 89.3 81.3 - 96.4 fL [facility] MCH 28.3 27.1 - 33.3 pg [facility] ([place] MCHC 31.6(L) 32.3 - 35.7 g/dL [facility] ([place]) RDW CV 13.9 11.1 - 14.9 % [facility] RDW SD 45.6 35.7 - 48.1 fL [facility] ([place]) NRBC abs 0.00 0.00 - 0.01 K/cumm [facility] ([place]) Blood 08/08/2024 3:58 AM CDT 08/08/2024 4:11 AM CDT us Juan Sorto MD LAB BLOOD ORDERABLES [facility] Result [facility] ([place]) 1 [facility] Department [place] [address] * (ABNORMAL) Comprehensive metabolic panel (08/08/2024 3:58 AM CDT) Sodium 134(L) 135 - 145 mmol/L Potassium, pl 4.6 3.3 - 4.9 mmol/L [facility] ([place]) Chloride 101 97 - 110 mmol/L [facility] ([place]) CO2 23 22 - 32 mmol/L [facility] ([place]) Anion gap 10 2 - 15 mmol/L [facility] BUN 35(H) 6 - 25 mg/dL [facility] ([place]) Creatinine 1.13(H) 0.60 - 1.10 mg/dL [facility] Glucose 174 70 - 199 mg/dL [facility] ([place]) Comment: Interpretive Data Fasting glucose [...] BLOOD ORDERABLES Fi nal Result RUSTY TALBOT ([place]) 1 [facility] [employer] [place] [address] * POCT glucose (08/08/2024 1:52 AM CDT) Glucose, POC 190 70 - 199 mg/dL Blood 08/08/2024 1:52 AM CDT 08/08/2024 1:52 AM CDT us Cony Fitch MD LAB POCT ORDERABLES - DEV ICE Final Result RUSTY TALBOT ([place]) 1 [facility] [place] [address] * (ABNORMAL) POCT glucose (08/07/2024 9:15 PM CDT) Glucose, POC 216(H) 70 - 199 mg/dL Blood 08/07/2024 9:15 PM CDT 08/07/2024 9:15 PM CDT Cony Fitch MD LAB POCT ORDERABLES - DEV ICE Final Result Performing Organization Address City/[facility]/ZIP Co de Phone Number RUSTY TALBOT ([place]) 1 [facility] [place] [address] * (ABNORMAL) POCT glucose (08/07/2024 4:28 PM CDT) Glucose, POC 270(H) 70 - 199 mg/dL Comment:Glu2: RN/ Notified Blood 08/07/2024 4:28 PM CDT 08/07/2024 4:28 PM CDT Cony Fitch MD LAB POCT ORDERABLES - DEV ICE Final Result Performing Organization Address [facility] Co de Phone Number RUSTY TALBOT ([place]) 1 [facility] [place] [address] * (ABNORMAL) POCT glucose (08/07/2024 11:36 AM CDT) Glucose, POC 300(H) 70 - 199 mg/dL Comment:Glu2: RN/ Notified Blood 08/07/2024 11:3 6 AM CDT 08/07/2024 11:36 AM CDT Cony Fitch MD LAB POCT ORDERABLES - DEV ICE Final Result Performing Organization Address City/[facility] Co de Phone Number RUSTY TALBOT ([place]) 1 [facility] [place] [address] * (ABNORMAL) POCT glucose (08/07/2024 7:21 AM CDT) Glucose, POC 248(H) 70 - 199 mg/dL Blood 08/07/2024 7:21 AM CDT 08/07/2024 7:21 AM CDT us Cony Fitch MD LAB POCT ORDERABLES - DEV ICE Final Result RUSTY TALBOT ([place]) 1 [facility] Department [place] [address] * (ABNORMAL) eGFR (08/07/2024 2:51 AM CDT) [...] BLOOD ORDERABLES Fi nal Result RUSTY TALBOT ([place]) 1 [facility] [place] [address] * (ABNORMAL) Differential, auto (08/07/2024 2:51 AM [...] Fi nal Result [facility] ([place]) 1 [facility] [employer] [place] [address] * (ABNORMAL) CBC with auto differential (08/07/2024 [...] BLOOD ORDERABLES Fi nal Result RUSTY TALBOT ([place]) 1 [facility] [place] [address] * (ABNORMAL) Comprehensive metabolic panel (08/07/2024 2:51 [...] 45 Units/L [facility] ([place]) Blood 08/07/2024 2:5 1 AM CDT 08/07/2024 4:39 AM CDT us Juan Sorto MD LAB BLOOD ORDERABLES Fi nal Result [facility] ([place]) 1 [facility] [place] [address] * (ABNORMAL) POCT glucose (08/07/2024 2:11 AM CDT) Glucose, POC 293(H) 70 - 199 mg/dL Blood 08/07/2024 2:11 AM CDT 08/07/2024 2:11 AM CDT Cony Fitch MD LAB POCT ORDERABLES - DEV ICE Final Result Performing Organization Address City/[facility]/ZIP Co de Phone Number RUSTY TALBOT ([place]) 1 [facility] [place] [address] * Vancomycin level random (08/06/2024 9:07 PM CDT) Vancomycin random 12.0 mcg/mL Comment: Interpretive Data No reference ranges have been established for random drug levels. Current Interpretive Data was last revised on 2020. Blood 08/06/2024 9:07 PM CDT 08/06/2024 9:11 PM CDT Cony Fitch MD LAB BLOOD ORDERABLES Kaylah l Result Performing Organization Address [facility] Co de Phone Number RUSTY TALBOT ([place]) 1 [facility] [place] [address] * (ABNORMAL) POCT glucose (08/06/2024 8:19 PM CDT) Glucose, POC 250(H) 70 - 199 mg/dL Blood 08/06/2024 8:19 PM CDT 08/06/2024 8:19 PM CDT Cony Fitch MD LAB POCT ORDERABLES - DEV ICE Final Result Performing Organization Address City/[facility]/ZIP Co de Phone Number RUSTY TALBOT ([place]) 1 [facility] [place] [address] * (ABNORMAL) POCT glucose (08/06/2024 4:38 PM CDT) Glucose, POC 277(H) 70 - 199 mg/dL Blood 08/06/2024 4:38 PM CDT 08/06/2024 4:38 PM CDT Cony Fitch MD LAB POCT ORDERABLES - DEV ICE Final Result Performing Organization Address City/[facility]/ZIP Co de Phone Number URSTY TALBOT ([place]) 1 [facility] [place] [address] * (ABNORMAL) POCT glucose (08/06/2024 11:57 AM CDT) Glucose, POC 358(H) 70 - 199 mg/dL Blood 08/06/2024 11:5 7 AM CDT 08/06/2024 11:57 AM CDT Cony Fitch MD LAB POCT ORDERABLES - DEV ICE Final Result Performing Organization Address [facility] Co de Phone Number URSTY TALBOT ([place]) 1 [facility] [place] [address] * POCT glucose (08/06/2024 7:59 AM CDT) Glucose, POC 150 70 - 199 mg/dL Blood 08/06/2024 7:59 AM CDT 08/06/2024 7:59 AM CDT Cony Fitch MD LAB POCT ORDERABLES - DEV ICE Final Result Performing Organization Address City/[facility] Co de Phone Number RUSTY TALBOT ([place]) 1 [facility] [place] [address] * (ABNORMAL) eGFR (08/06/2024 3:54 AM CDT) [...] MD LAB BLOOD ORDERABLES Fi nal Result [facility] ([place]) 1 [facility] [place] [address] * (ABNORMAL) Differential, auto (08/06/2024 3:54 AM [...] revised on 2017. Monocyte pct 8.1 % [facility] ([place]) Comment: Interpretive Data Percent cell [...] revised on 2017. Basophil pct 0.4 % [facility] ([place]) Comment: Interpretive Data Percent cell count reference ranges are not reported, since discordance with absolute values may lead to misinterpretation of CBC data. Current Interpretive Data was last revised on 2017. Blood 08/06/2024 3:54 AM CDT 08/06/2024 4:21 AM CDT us Juan Sorto MD LAB BLOOD ORDERABLES Fi nal Result RUSTY TALBOT ([place]) 1 [facility] Department of Laboratories [place], [place] [id number] * (ABNORMAL) CBC with auto differential (08/06/2024 3:54 AM CDT) WBC 13.58(H) 3.80 - 9.90 K/cumm Hgb 10.7(L) 11.9 - 15.5 g/dL RUSTY TALBOT ([place]) Hct 33.6(L) 35.6 - 45.5 % [facility] ([place]) Plt 281 150 - 400 K/cumm [facility] ([place]) MPV 9.8 9.1 - 12.3 fL [facility] RBC 3.84(L) 3.90 - 5.20 M/cumm [facility] ([place]) MCV 87.5 81.3 - 96.4 fL [facility] ([place]) MCH 27.9 27.1 - 33.3 pg [facility] ([place]) MCHC 31.8(L) 32.3 - 35.7 g/dL [facility] ([place]) RDW CV 13.8 11.1 - 14.9 % [facility] RDW SD 44.5 35.7 - 48.1 fL [facility] ([place]) NRBC abs 0.00 0.00 - 0.01 K/cumm [facility] Blood 08/06/2024 3:54 AM CDT 08/06/2024 4:21 AM CDT Juan Sorto MD LAB BLOOD ORDERABLES Fi nal Result RUSTY TALBOT ([place]) 1 [facility] [place] [address] * Magnesium (08/06/2024 3:54 AM CDT) Magnesium 1.6 1.4 - 2.5 mg/dL Blood 08/06/2024 3:54 AM CDT 08/06/2024 4:21 AM CDT Juan Sorto MD LAB BLOOD ORDERABLES Fi nal Result RUSTY TALBOT ([place]) 1 [facility] [place] [address] * (ABNORMAL) Comprehensive metabolic panel (08/06/2024 3:54 [...] Fi nal Result [facility] ([place]) 1 [facility] [place] [address] * POCT glucose (08/06/2024 3:13 AM CDT) Glucose, POC 189 70 - 199 mg/dL Blood 08/06/2024 3:13 AM CDT 08/06/2024 3:13 AM CDT Cony Fitch MD LAB POCT ORDERABLES - DEV ICE Final Result Performing Organization Address City/[facility] Co de Phone Number RUSTY TALBOT ([place]) 1 [facility] [place] [address] * Vancomycin level random (08/05/2024 10:24 PM CDT) [facility] Signature Vancomycin random 7.1 mcg/mL Comment: Interpretive Data No reference ranges have been established for random drug levels. Current Interpretive Data was last revised on 2020. Blood 08/05/2024 10:2 4 PM CDT 08/05/2024 10:27 PM CDT Cony Fitch MD LAB BLOOD ORDERABLES Kaylah l Result Performing Organization Address [facility] de Phone Number RUSTY TALBOT ([place]) 1 [facility] [place] [address] * (ABNORMAL) POCT glucose (08/05/2024 7:49 PM CDT) Glucose, POC 266(H) 70 - 199 mg/dL Blood 08/05/2024 7:49 PM CDT 08/05/2024 7:49 PM CDT Cony Fitch MD LAB POCT ORDERABLES - DEV ICE Final Result Performing Organization Address City/[facility] Co de Phone Number RUSTY TALBOT ([place]) 1 [facility] [place] [address] * (ABNORMAL) POCT glucose (08/05/2024 4:41 PM CDT) Glucose, POC 223(H) 70 - 199 mg/dL Blood 08/05/2024 4:41 PM CDT 08/05/2024 4:41 PM CDT Cony Fitch MD LAB POCT ORDERABLES - DEV ICE Final Result RUSTY TALBOT ([place]) 1 [facility] [place] [address] * US Vein Duplex Lower Extremity Bilateral [...] Eduar Reza M.D. AR: KIMBERLY Report ID: [id number] Reading Location: [id number] Procedure Note Eduar Reza MD - 08/06/2024 [...] Eduar Reza M.D. AR: KIMBERLY Report ID: [id number] Reading Location: [place] [address] Cony Fitch MD IMG US PROCEDURES Final R esult * (ABNORMAL) POCT glucose (08/05/2024 11:43 AM CDT) [facility] Glucose, POC 243(H) 70 - 199 mg/dL Blood 08/05/2024 11:4 3 AM CDT 08/05/2024 11:43 AM CDT Cony Fitch MD LAB POCT ORDERABLES - DEV ICE Final Result Performing Organization Address City/[facility]/ZIP Co de Phone Number RUSTY TALBOT ([place]) [address] [place] [address] [employer] [place] [address] * (ABNORMAL) POCT glucose (08/05/2024 9:38 AM CDT) [facility] Signature Glucose, POC 397(H) 70 - 199 mg/dL Blood 08/05/2024 9:38 AM CDT 08/05/2024 9:38 AM CDT Cony Fitch MD LAB POCT ORDERABLES - DEV ICE Final Result RUSTY TALBOT ([place]) 1 [facility] [place] [address] * (ABNORMAL) POCT glucose (08/05/2024 7:27 AM CDT) Glucose, POC 329(H) 70 - 199 mg/dL Blood 08/05/2024 7:27 AM CDT 08/05/2024 7:27 AM CDT Cony Fitch MD LAB POCT ORDERABLES - DEV ICE Final Result [facility] ([place]) 1 [facility] [place] [address] * (ABNORMAL) POCT glucose (08/05/2024 4:09 AM CDT) Glucose, POC 275(H) 70 - 199 mg/dL Blood 08/05/2024 4:09 AM CDT 08/05/2024 4:09 AM CDT Juan Sorto MD LAB POCT ORDERABLES - D EVICE Final Result Performing Organization Address City/[facility] Co de Phone Number [facility] ([place]) 1 [facility] [place] [address] * (ABNORMAL) eGFR (08/05/2024 3:34 AM CDT) Pathologist [facility] eGFR 56(L) >=60 mL/min/1. 73 m2 Comment: [...] LAB BLOOD ORDERABLES Kaylah severino Result RUSTY [facility] ([place]) 1 [facility] [place] [address] * (ABNORMAL) Differential, auto (08/05/2024 3:34 AM CDT) Neutrophil abs 12.87(H) 1.50 - 6.50 K/cumm Imm gran abs 0.10 0.00 - 0.10 K/cumm [facility] ([place]) Lymphocyte abs 0.89 0.80 - 3.30 K/cumm [facility] ([place]) Monocyte abs 0.84(H) 0.20 - 0.80 K/cumm [facility] ([place]) Eosinophil abs 0.04 0.00 - 0.50 K/cumm [facility] ([place]) Basophil abs 0.04 0.00 - 0.10 K/cumm [facility] ([place]) Neutrophil pct 87.0 % [facility] ([place]) Comment: Interpretive Data Percent cell count reference ranges are not reported, since discordance with absolute values may lead to misinterpretation of CBC data. Current Interpretive Data was last revised on 2017. Imm gran pct 0.7 % [facility] ([place]) Comment: Interpretive Data Percent cell count reference ranges are not reported, since discordance with absolute values may lead to misinterpretation of CBC data. Current Interpretive Data was last revised on 2017. Lymphocyte pct 6.0 % [facility] ([place]) Comment: Interpretive Data Percent cell count reference ranges are not reported, since discordance with absolute values may lead to misinterpretation of CBC data. Current Interpretive Data was last revised on 2017. Monocyte pct 5.7 % [facility] ([place]) Comment: Interpretive Data Percent cell count reference [...] MD LAB BLOOD ORDERABLES Kaylah haq Result [facility] 1 [facility] [place] [address] * (ABNORMAL) CBC with auto differential (08/05/2024 [...] 14.9 % [facility] ([place]) RDW SD 42.9 35.7 - 48.1 fL [facility] ([place]) NRBC abs 0.00 0.00 - 0.01 K/cumm [facility] ([place]) Blood 08/05/2024 3:34 AM CDT 08/05/2024 3:45 AM CDT Sara Hastings MD LAB BLOOD ORDERABLES Kaylah l Result RUSTY [facility] ([place]) 1 [facility] [place] [address] * Magnesium (08/05/2024 3:34 AM CDT) Pathologist [facility] Magnesium 1.6 1.4 - 2.5 mg/dL Blood 08/05/2024 3:34 AM CDT 08/05/2024 3:45 AM CDT Juan Sorto MD LAB BLOOD ORDERABLES Fi nal Result Performing Organization Address [facility] Co de Phone Number [facility] ([place]) 1 [facility] [place] [address] * (ABNORMAL) Comprehensive metabolic panel (08/05/2024 3:34 AM CDT) Sodium 134(L) 135 - 145 mmol/L Potassium, pl 4.0 3.3 - 4.9 mmol/L [facility] ([place]) Chloride 100 97 - 110 mmol/L [facility] ([place]) CO2 22 22 - 32 mmol/L [facility] ([place]) Anion gap 12 2 - 15 mmol/L [facility] ([place]) BUN 25 6 - 25 mg/dL [facility] ([place]) Creatinine 0.97 0.60 - 1.10 mg/dL [facility] ([place]) Glucose 272(H) 70 - 199 mg/dL [facility] ([place]) Comment: Interpretive Data Fasting glucose [...] BLOOD ORDERABLES Kaylah l Result RUSTY TALBOT ([place]) 1 [facility] [employer] [place] [address] * (ABNORMAL) POCT glucose (08/04/2024 11:07 PM CDT) Glucose, POC 278(H) 70 - 199 mg/dL Blood 08/04/2024 11:0 7 PM CDT 08/04/2024 11:07 PM CDT us Juan Sorto MD LAB POCT ORDERABLES - D EVICE Final Result RUSTY [facility]BOT ([place]) 1 [facility] Department [place] [address] * XR Foot Right 2 Views (08/04/2024 [...] signed by Delroy SARAVIA: MANJIT Report ID: [id number] Reading Location: [id number] Procedure Note Delroy Clemons MD - 08/04/2024 [...] signed by Delroy SARAVIA: MANJIT Report ID: [id number] Reading Location: [id number] Juan Sorto MD IMG XR PROCEDURES Final Result * XR [...] signed by Delroy SARAVIA: MANJIT Report ID: [id number] Reading Location: [id number] Procedure Note Delroy Clemons MD - 08/04/2024 [...] signed by Delroy SARAVIA: MANJIT Report ID: [id number] Reading Location: [id number] Juan Sorto MD IMG XR PROCEDURES Final [...] tendency for uric acid stone formation. Source: [facility] [employer] [employer] Current Interpretive Data was last revised on [...] 9:49 PM CDT Sara Hastings MD LAB MICROBIOLOGY - GENERA L ORDERABLES Final Result [facility] ([place]) 1 [facility] [place] [address] * (ABNORMAL) Urinalysis, microscopic only (08/04/2024 9:45 PM CDT) WBC, ur 11-20(A) 0 - 5 /HPF RBC, ur 0-2 0 - 2 /HPF [facility] ([place]) Epithelial cells, squamous, ur 1-5 0 - 5 /HPF [facility] ([place]) Bacteria, ur Trace(A) [facility] ([place]) Culture Reflex Comment Reflex to urine culture will be performed. [facility] ([place]) Urine 08/04/2024 9:45 PM CDT 08/04/2024 9:49 PM CDT Sara Hastings MD LAB URINE ORDERABLES Kaylah l Result Performing Organization Address [facility] Co de Phone Number [facility] ([place]) 1 [facility] [place] [address] * Urine culture Urine (08/04/2024 9:45 PM CDT) Report Final Report: No growth Comment:Testing performed by : [facility], [address] [place] [address], [id number] Urine 08/04/2024 9:45 PM CDT 08/05/2024 12:19 AM CDT Narrative [facility] ([place]) - 08/06/2024 6:24 AM CDT Urine culture reflexed based upon urinalysis results. Testing performed by [facility] ([phone]) Sara Hastings MD LAB MICROBIOLOGY - GENERA L ORDERABLES Final Result Performing Organization Address City/[facility] Co de Phone Number RUSTY [facility]ALBOT ([place]) 1 [facility] [place] [address] * (ABNORMAL) POCT glucose (08/04/2024 9:34 PM CDT) Glucose, POC 401(H) 70 - 199 mg/dL Blood 08/04/2024 9:34 PM CDT 08/04/2024 9:34 PM CDT Juan Sorto MD LAB POCT ORDERABLES - D EVICE Final Result [facility] ([place]) 1 [facility] Department [place] [address] * Blood culture Blood Peripheral (08/04/2024 8:32 PM CDT) Report Final Report: No growth Comment:Testing performed by : [facility], [address] [place]., [address] Blood (Peripheral) 08/04/2024 8:32 PM CDT 08/04/2024 [...] performance characteristics have been verified by the [facility]. For questions about this culture, contact the Microbiology Laboratory at [phone]. Interpretive data was last revised on 23. us Sara Hastings MD LAB MICROBIOLOGY - GENERA L ORDERABLES Final Result Performing Organization Address City/[facility]/ZIP Co de Phone Number RUSTY TALBOT (ANUPAMA) 1 [facility] Department [place] [address] * Blood culture Blood Peripheral (08/04/2024 8:32 PM CDT) Report Final Report: No growth Comment:Testing performed by : [facility], [address] [facility] [place]., [id number] Blood (Peripheral) 08/04/2024 8:32 PM CDT 08/04/2024 10:19 PM CDT Narrative RUSTY TALBOT ([place]) - 08/09/2024 7:01 AM CDT Draw Blood [...] performance characteristics have been verified by the [facility]biology [facility]. For questions about this culture, contact the Microbiology Laboratory at [phone]. Interpretive data was last revised on 23. us Sara Hastings MD LAB MICROBIOLOGY - GENERA L ORDERABLES Final Result RUSTY TALBOT (ANUPAMA) 1 [facility] [place] [address] * Sepsis Lactate w/ Reflex (08/04/2024 7:17 PM CDT) Sepsis Lactate 1.3 0.7 - 2.0 mmol/L Blood 08/04/2024 7:17 PM CDT 08/04/2024 7:23 PM CDT Sara Hastings MD LAB BLOOD ORDERABLES Kaylah l Result Performing Organization Address City/[facility]/ZIP Co de Phone Number RUSTY TALBOT ([place]) 1 [facility] [place] [address] * (ABNORMAL) eGFR (08/04/2024 7:17 PM CDT) [...] ORDERABLES Kaylah l Result Performing Organization Address City/[facility]/ZIP Co de Phone Number RUSTY [facility] (ANUPAMA) 1 [facility] [place] [address] * (ABNORMAL) Differential, auto (08/04/2024 7:17 PM [...] Kaylah l Result RUSTY [facility] ([place]UPAMA) 1 [facility] [place] [address] * (ABNORMAL) CBC with auto differential (08/04/2024 [...] RDW SD 42.5 35.7 - 48.1 fL CERNER [facility] (ANUPAMA) NRBC abs 0.00 0.00 - 0.01 K/cumm [facility] ([place]) Blood 08/04/2024 7:17 PM CDT 08/04/2024 7:23 PM CDT Sara Hastings MD LAB BLOOD ORDERABLES Kaylah l Result RUSTY TALBOT (ANUPAMA) 1 [facility] [place] [address] * (ABNORMAL) Comprehensive metabolic panel (08/04/2024 7:17 [...] MD LAB BLOOD ORDERABLES Kaylah l Result [facility] (ANUPAMA) 1 [facility] Department [place] [address] * (ABNORMAL) Tissue aerobic and anaerobic culture and gram stain Tissue Leg, right (07/29/2024 10:10 AM CDT) Direct Specimen Exam Stain: No polymorphonuclear leukocytes seen. No organisms seen. Comment:Testing performed by : [facility], [address] [place] [address]., [id number] Report Final Report: Few Staphylococcus aureus Methicillin susceptible (MSSA) by penicillin binding protein 2a (PBP2a) testing. Few Mixed skin microorganisms. (.) RUSTY TALBOT ([place]) Comment:Testing performed by : [facility], [address] [place] [address]., [address] Organism STAPHYLOCOCCUS AUREUS RUSTY TALBOT ([place]) Organism MIXED SKIN MICROORGANISMS. RUSTY TALBOT ([place]) Tissue (Leg, right) 07/29/2024 10:10 AM CDT 07/29/2024 6:09 PM CDT Narrative RUSTY TALBOT ([place]) - 08/03/2024 7:37 AM CDT Specimen received in a sterile container. Testing performed by [facility] ([phone]) Specimens submitted from normally sterile body sites [...] - GENERAL ORDERABLES Final Result RUSTY TALBOT ([place]) 1 [facility] [place] [address] * (ABNORMAL) Lipid panel (10/16/2023 2:36 PM [...] revised on 2017. Chol/HDL ratio 3 RUSTY Blood 10/16/2023 2:36 PM CDT 10/16/2023 8:28 PM CDT Faith Hamm MASH PREPARATORY OPERATOR LAB BLOOD ORDERABLES Final Re sult RUSTY [address] [address] Department [place] [address] * (ABNORMAL) DIABETES EYE EXAM (04/02/2023 9:12 AM INDUSTRIAL PAINTER) Historical Provider HEALTH MAINTENANCE Final Result * (ABNORMAL) Albumin Creatinine Ratio, Urine (09/18/2022 12:53 PM CDT) Albumin Ur 1,043.2 mg/L CERNER AM [facility] (ANUPAMA) Comment: Interpretive Data No reference range established. Current interpretive data was last revised 2018. Testing performed by: [facility], [address] [place] [address]., [address] Creatinine Ur 92.2 mg/dL [facility] Comment: Interpretive Data No reference range established. Current interpretive data was last revised 2018. Testing performed by: [facility], [address] [place] [address]., [address] Albumin Creatinine Ratio, Ur 1,131(H) 1 - 29 mg/g [facility] ([place] Comment:Testing performed by : [facility], [address] [place] [address]., [address] Urine 09/18/2022 12:5 3 PM CDT 09/18/2022 7:11 PM CDT us Natalia Vang DO LAB URINE ORDERABLES Final Result RUSTY [facility] ([place]) 1 [facility] Department [place] [address] * Dexa Axial Skeleton Bone Density 1 or 2 Site (08/23/2020 12:03 PM CDT) Anatomical Region Laterality Modality Body N/A Other 08/23/2020 12:3 1 PM CDT Narrative 08/23/2020 12:33 PM CDT EXAM DESCRIPTION: DEXA AXIAL SKELETON BONE DENSITY 1 OR MORE SITES REASON FOR STUDY: Post-menopausal female, screening for osteoporosis. Splitter Tender/Model: Yoolink (S/N [id number]) CLINICAL INFORMATION: Current height: 64 inches Maximum [...] by Thomas Davila M.D. AB: Report ID: [id number] Reading Location: [id number] Procedure Note Thomas Davila MD - 08/23/2020 EXAM DESCRIPTION: DEXA AXIAL SKELETON BONE DENSITY 1 OR MORE SITES REASON FOR STUDY: Post-menopausal female, screening for osteoporosis. Splitter Tender/Model: ClearServe Discovery SL (S/N [id number]) CLINICAL INFORMATION: Current height: 64 inches Maximum [...] by Thomas Davila M.D. AB: Report ID: [id number] Reading Location: [place] [address] us Natalia Vang DO IMG DXA PROCEDURES Final R esult * DIABETES FOOT EXAM (07/22/2017) [facility] Diabetic Foot Exam Unknown us Historical Provider MD HEALTH MAINTENANCE Final Result from Last 3 Months or Most Recently Relevant to Health Maintenance Insurance [facility] MEDICARE ADVANTAGE [facility] MEDICARE ADVANTAGE [facility] MEDICARE Address: [address] [address] [place] [address] Advance Directives For more information, please contact: [phone] * Full Code (Latest Code Status on [...] 5:31 PM 05/08/2021 5:50 PM Care Teams Seat Pack Inspector Relationship Specialty Start Date End Date Faith Hamm NP [address] [facility] [address] [place] [address] PCP - General Family Medicine 10/16/23 [place] [address] [address] [facility] [address] [place] [address] Consulting Physician Endocrinology 03/29/18 [place] [address] [address] [facility] [address], [place] [address] Consulting Physician Nephrology 02/27/21 Thomas Ordoñez MD [address] [facility] MEDICAL ONCOLOGY, [facility] [address] [place] [address] Consulting Physician Medical Oncology 05/22/21 Joseph Mccullough MD [address] [place] [address] Consulting Physician Gastroenterology 03/19/23
--- OUTSIDE RECORDS SUMMARY | 2024-09-04 15:37 | XMS_ITS | Encounter Summary ---
Author Organization [facility] Healthcare Address [address] [place] [address] Care Team Providers Care Passenger Agent Name Role Phone Devaughn Bazan DO Unavailable [phone] Natalia Vang DO Primary Care Provider [phone] Naun Georges MD Unavailable [phone] Frankie Bright MD Unavailable [phone] Di Demarco MD Unavailable [phone] Thomas Ordoñez MD Unavailable Anne Marie Platt [facility] Unavailable [phone] Naun Georges MD Unavailable [phone] Mendez Shine RN Unavailable [phone] Joseph Mccullough MD Unavailable [phone] Faith Hamm NP Primary Care Provider [phone] Reason for Visit * Reason Onset Date Comments Scheduling Appointments 04/18/2020 Appt. re minder; no answer Encounter Details Date Type Department Care Team (Late st Contact Info) Description 04/18/2020 Telephone [facility] [address] [place] [address] Renata Wong RT Scheduling Appointments (Appt. 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 Gender Identity Not on file Sexual Orientation Not on file documented as of this encounter Plan of Treatment Upcoming Encounters Date Type Department Care Team (Late st Contact Info) Description 09/06/2024 9:00 AM CDT Hospital Encounter [facility] Operating Room [address] [place] [address] [phone] [place] [address] [place] [address] 09/06/2024 9:00 AM CDT Anesthesia Event [facility] Operating Room [address] [place] [address] [phone] Nadya Bradley, SERG [address] [place] [address] 09/06/2024 9:00 AM CDT - 09/06/2024 11:00 AM CDT Surgery [facility] Operating Room [address] [place] [address] [phone] [place] [address] [place] [address] Colpocleisis Scheduled Procedures Name Priority Associated Diagnoses Date/Ti me COLPOCLEISIS Vaginal vault prolapse 09/06/2024 9:00 AM CDT documented as of this encounter Goals Goal Patient Goal Type Associated Problems Recent Progress Patient-Stated? 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 COVID: Suspected 12/30/2022 12/30/2022 12/30/2022 10:47 AM CDT documented as of this encounter Care Teams Passenger Agent Relationship Specialty Start Date End Date Natalia Vang DO PCP - General Family Medicine 10/09/17 10/15/23 Faith Hamm NP [address] [address] PCP - General Family Medicine 10/16/23 Devaughn Bazan DO Surgeon Otolaryngology 03/26/17 11/09/23 [place] [address] [address] [address] Consulting Physician Endocrinology 03/29/18 [place] [address] [address] [id number] Anesthesiologist Pain Management 10/20/19 11/09/23 [place] [address] [address] [address] Consulting Physician Nephrology 02/27/21 Thomas Ordoñez MD [address] [facility] MEDICAL ONCOLOGY, [address] [address] Consulting Physician Medical Oncology 05/22/21 Anne Marie Platt [address] [place] [address] Pharmacist Pharmacy 08/23/21 08/25/21 [place] [address] [address] [place] [address] [place] [address] Consulting Physician Endocrinology 12/15/22 11/09/23 Mendez Shine RN [address] [place] [address] [address] [place] [address] Senior Sales Executive 03/06/23 04/12/23 Joseph Mccullough MD [address] [place] [address] [address] [place] [address] Consulting Physician Gastroenterology 03/19/23 documented as of this encounter
--- OUTSIDE RECORDS SUMMARY | 2024-09-04 15:37 | XMS_ITS | Continuity of Care Document ---
Author Organization [facility] Address [address] [place] [address] Phone Care Team Providers Care Automation Developer Name Role Phone Cuauhtemoc CARPIO, Simba Unavailable [...] Diagnoses Date Provider Providers Copied on Encounter [facility], [address], [place], [place], [address], [place] tel:[phone] SEC Tam[place] Professional Diabetic eye exam (chief complaint) Nuclear sclerotic cataract of both eyesDry eyes, bilateralType 2 diabetes mellitus with complicationsM oderate nonproliferati ve diabetic retinopathy, without macular edema, associated with type 2 diabetes mellitus Dec-2 2- 5 Kerwinkayla Cottrell. [address] [facility] [facility], [facility] A, [place], [place], [address], [place]. tel:[phone] Office/outpa tient Visit, [facility], [address] [place] [address] [address], [place], [place], [address], [place] tel:[phone] SEC Tam[place] Professional F/u exam, Plaquenil therapy (chief complaint) Therapeutic Drug MonitoringSENI LE NUCLEAR CATARACTDiabet es (high blood sugar disease) affecting the eyeDiabetic retinopathy Apr-0 6201 5 Mariam Almodovar. [address] [facility], [address], [place], [address], [place]. tel:[phone] Referring Provider: Simba Villarreal, [address] [facility] [address], [place], [address] . tel:[phone] Office/outpa tient Visit, [facility], [address], [place], [place], [address], [place] tel:[phone] SEC Tamir [place] Professional F/u exam, Plaquenil therapy (chief complaint) Therapeutic Drug MonitoringDiab etes (high blood sugar disease) affecting the eyeDiabetic retinopathySEN ILE NUCLEAR CATARACT Oct-0 4 Cuauhtemoc Cottrell. [address] [facility], [address], [place], [place], [address], [place]. tel:[phone] Referring Provider: Simba Villarreal [address] [facility], [place], [address] . tel:[phone] Office/outpa tient Visit, [facility], [address], [place], [place], [address], [place] tel:[phone] SEC [place] RADHA Professional Diabetes Mellitus Type 2, UncomplicatedS ENILE NUCLEAR CATARACTTherap eutic Drug Monitoring May-0 4-201 4 Cuauhtemoc Cottrell. [address] [employer], [address] [place], [address], [place]. tel:[phone] Office/outpa tient Visit, [facility], [address], [place], [place], [address], [place] tel:[phone] SEC Tamir RADHA Professional Therapeutic Drug MonitoringSENI LE NUCLEAR CATARACTHORDEO LUM INTERNUMDiabet es Mellitus Type 2, Uncomplicated Sep- 3-201 3 Cuauhtemoc Cottrell. [address] [facility], [facility] [place], [address], [place]. tel:[phone] Referring Provider: Simba Villarreal, [address] [place], [address] . tel:[phone] Office/outpa tient Visit, [facility], [address], [place], [place], [address], [place] [phone] SEC [place] RADHA Professional CHALAZION Apr- 3 Mariam Almodovar. [address] [facility], [address], [place], [address], [place]. tel:[phone] [facility], [address], [place], [place], [address], [place] tel:[phone] SEC Tam[place] RADHA Professional No Information Fe- 3 Cuauhtemoc Cottrell. [address] [facility], [facility] [place], [address], [place]. tel:[phone] Referring Provider: Simba Villarreal, [address] [facility] [place], [address] . tel:[phone] Office/outpa tient Visit, [facility], [address], [place], [place], [address], [phone] SEC Tam[place] RADHA Professional BLEPHAROCONJUN CTIVIT NOS 8-201 2 Cuauhtemoc Cottrell. [address] [facility], [facility] A, [place], [place], [address], [place]. tel:[phone] [facility], [address], [place], [place], [address], tel:[phone] SEC Tamir GARCIA Professional No Information 8 Isaac Kim. [facility] [employer] [employer], [address], [place], [place], [address], . tel:[phone] Referring Provider: Simba Villarreal, [address] [facility] [address], [place], [address] . tel:[phone] Office/outpa tient Visit, [facility], [address], [place], [place], [address], [place] [phone] SEC Tamir GARCIA Professional No Information 7 Isaac Kim. [facility] [employer], [address], [place], [place], [address], [place]. tel:[phone] Referring Provider: Julio Villarreal, [facility] [employer] [address], [place], [address] . tel:[phone] Family History Family Member Type Diagnosis Age At Onset No Information Payers Payer name Insurance type Covered green party ID Max sommerlesvia(s) Oswadlo (Advantra, Gold Advantage) [place] [id number] Social History Type Description Quantity Date Captured [...] Relat ed to SENILE NUCLEAR CATARACT mild assurance specialist-rare dot he mm - observation Educational materials provided to patient. Related to Diabetes Mellitus Type 2, Uncomplicated - 6mths Related to Diabe erlin Mellitus Type 2, Uncomplicated no assurance specialist - reevaluate in 6mths when in for [...] days or worsen. Related to Chalazion no assurance specialist - DM letter - 1yr cataracts - states vis seems ok MGD - HMP and AThumidifier BLEPHAROCONJUNCTIVIT NOS, OU - vision not affected - will continue to monitor - Discussed dx with pt. Start Tobra/ dex QID for 5 days then BID for 5 days. Recommends warm compresses. Related to BLEPHAROCONJUNCTIVIT NOS - Will sched complete Related to BLEPHAROCONJUNCTIVIT NOS Assessments Type Assessment Date assessment Nuclear sclerotic cataract of ping th eyes assessment Dry eyes, bilateral assessment Type 2 diabetes mellitus with co mplications assessment Moderate nonprolifer ative diabetic retinopathy, without macular edema, associated with type 2 diabetes mellitus Patient Care Teams Name Effective Dates (start - stop) Status Members No Information
--- OUTSIDE RECORDS SUMMARY | 2024-09-04 15:37 | XMS_ITS | Encounter Summary ---
Author Organization [facility] Healthcare Address [address] [place] [address] Care Team Providers Care Cab Supervisor Name Role Phone Naun Georges MD Unavailable [phone] Di Demarco MD Unavailable [phone] Thomas Ordoñez MD Unavailable Joseph Mccullough MD Unavailable [phone] Faith Hamm NP Primary Care Provider [phone] Encounter Details Date Type Department Care Team (Late st Contact Info) Description 08/15/[address] [facility] Medical Group Primary Care at [address] [place] [phone] Bertha Kelley MA Social History Tobacco Use Types Packs/Day Years [...] materials from doctor or pharmacy Never 03/11/2023 [facility] Utilities Answer Date Recorded In the [...] 08/05/2024 How often do you attend chur ch or scientologist services? 1 to 4 times per year 08/05/2024 Do you belong to any clubs o r organizations such as zoroastrianism groups, unions, fraternal or athletic groups, or [...] place to sleep or slept in a residential (including now)? No 04/13/2023 PHQ-9 Answer Date [...] any time in the past 12 m onths, were you homeless or living in a residential (including now)? No 08/05/2024 Personal Safety Answer Date Recorded Have you ever been in or are you currently in a harmful physical or emotional relationship or is someone making you feel afraid or unsafe? Denies 08/04/2024 Education Answer Date Recorded What is the highest level of school you have completed or the highest degree you have received? High school graduate 03/16/2023 Comments No Sex and Gender Information Value Date Recorded Sex Assigned at Not on file Legal Sex Female 5:37 PM WOOD CRAFTSMAN Gender Identity Not on file Sexual Orientation Not on file documented as of this encounter Miscellaneous Notes * Telephone Encounter - Bertha Kelley MA - 08/15/2024 3:00 PM CDT Please disregard previous message, patients was d/c to [facility] Bertha Kelley [facility] Meter Mechanic [facility] Accountable Care Organization/[facility] Medical group * Telephone Encounter - Bertha Kelley MA - 08/15/2024 2:23 PM CDT Miroslava, This [facility] patient was discharged from inpatient care on 08/12, and the ACO team is unable to attempt outreach to them. A follow-up call from the practice is needed to confirm the follow-up appointment and clarify discharge instructions. Please have someone from the clinic contact the patient to schedule follow-up. ACTION NEEDED: For TCM billing, the practice must follow these steps for any inpatient discharge: TCM Billing Requirements: Interactive contact with the patient or caregiver must occur within 2 business days of discharge, documented in the medical record. Document the conversation in a telephone note, including: Hospitalization dates and reason for admission Review of medications Clear documentation of medication and discharge instruction review Follow-up appointment scheduled (ideally within 7 days of discharge) If contact is unsuccessful, document attempts in EPIC. Thank you! Bertha Kelley, [facility] Meter Mechanic [facility] Accountable Care Organization/[facility] Medical group [email or web address] documented in this encounter Plan of Treatment Upcoming Encounters Date Type Department Care Team (Late st Contact Info) Description 09/06/2024 9:00 AM CDT Hospital Encounter [facility] Operating Room [address] [place] [phone] [place] [address] [place] [address] 09/06/2024 9:00 AM CDT Anesthesia Event [facility] Operating Room [address] [place] [phone] Nadya Bradley, SERG [facility] [place] [address] 09/06/2024 9:00 AM CDT - 09/06/2024 11:00 AM CDT Surgery [facility] Operating Room [address] [place] [phone] [place] [address] [place] [address] Colpocleisis Scheduled Procedures Name Priority Associated Diagnoses Date/Ti me COLPOCLEISIS Vaginal vault prolapse 09/06/2024 9:00 AM CDT documented as of this encounter Goals Goal Patient Goal Type Associated Problems Recent Progress Patient-Stated? Author BH-Pain Behavioral Health Improving(03/2022 12:53 PM WOOD CRAFTSMAN) Betty Aiken, RN Note: Patient will establish a comfort-function goal and identify the pain level that will allow the patient to perform desired activities and achieve an acceptable quality of life. documented as of this encounter Visit Diagnoses Not on filedocumented in this encounter Care Teams Cab Supervisor Relationship Specialty Start Date End Date Faith Hamm NP [address] [facility] [address] [place] [address] PCP - General Family Medicine 10/16/23 [place] [address] [address] [address] Consulting Physician Endocrinology 03/29/18 [place] [address] [address] [address] Consulting Physician Nephrology 02/27/21 Thomas Ordoñez MD [address] [facility] MEDICAL ONCOLOGY, [address] [address] Consulting Physician Medical Oncology 05/22/21 Joseph Mccullough MD [address] [place] [place] [address] [address] Consulting Physician Gastroenterology 03/19/23 documented as of this encounter
--- OUTSIDE RECORDS SUMMARY | 2024-09-04 15:37 | XMS_ITS | Encounter Summary ---
Author Organization [facility] Healthcare Address [address] [place] [address] Care Team Providers Care Jumpbasting Facing Baster Name Role Phone Nanu Georges MD Unavailable [phone] Di Demarco MD Unavailable [phone] Thomas Ordoñez MD Unavailable Joseph Mccullough MD Unavailable [phone] Faith Hamm NP Primary Care Provider [phone] Reason for Visit * Reason Onset Date Comments Medical Question/Miscellaneous 08/30/2024 Encounter Details Date Type Department Care Team (Late st Contact Info) Description 08/30/2024 Telephone [facility] Primary Care at [address] [place] [address] Faith Hamm VARNISHING UNIT OPERATOR [address] [place] [address] Medical Question/Miscellaneous Social History Tobacco Use Types Packs/Day Years [...] from doctor or pharmacy Never 03/11/2023 [facility] Utilities Answer Date Recorded In the [...] often do you attend chur ch or buddhist services? 1 to 4 times per year 08/05/2024 Do you belong to any clubs o r organizations such as sikhism groups, unions, fraternal or athletic groups, or [...] place to sleep or slept in a custodial (including now)? No 04/13/2023 PHQ-9 Answer Date [...] were you homeless or living in a custodial (including now)? No 08/05/2024 Personal Safety Answer [...] on file Legal Sex Female 5:37 PM REACTOR FUELING SUPERVISOR Gender Identity Not on file Sexual Orientation Not on file documented as of this encounter Functional Status * Audit-C Score Answer Date of Assessment Author 0 08/30/2024 9:05 AM Cherelle Vasquez RN * Question Answer Date of Assessment Author Q1: How often do you have a drink containing alcohol? Never 08/30/2024 9:05 AM CDT Cathy Wiggins, CIRA Q2: How many drinks containing alcohol do you have on a typical day when you are drinking? Patient does not drink 08/30/2024 9:05 AM RATNAT Cathy Wiggins, CIRA Q3: How often do you have six or more drinks on one occasion? Never 08/30/2024 9:05 AM CDT Cathy Wiggins, CIRA documented as of this encounter Miscellaneous Notes * Telephone Encounter - Lazara Sanchez - 08/30/2024 12:35 PM CDT Medical Question/Miscellaneous Caller???s Concern: Raysa with [facility] stating that they are unable to accept this Patientas they are at Capacity. Please refer Patient to a different group. Does message need to be routed? Yes-Action Needed documented in this encounter Plan of Treatment Upcoming Encounters Date Type Department Care Team (Late st Contact Info) Description 09/06/2024 9:00 AM CDT Hospital Encounter [facility] Operating Room [address] [place] [address] [phone] [place] [address] [place] [address] 09/06/2024 9:00 AM CDT Anesthesia Event [facility] Operating Room [address] [place] [phone] Nadya Bradley, SERG [address] [place] [address] 09/06/2024 9:00 AM CDT - 09/06/2024 11:00 AM CDT Surgery [facility] Operating Room [address] [place] [phone] [place] [address] [place] [address] Colpocleisis Scheduled Procedures Name Priority Associated Diagnoses Date/Ti me COLPOCLEISIS Vaginal vault prolapse 09/06/2024 9:00 AM CDT documented as of this encounter Goals Goal Patient Goal Type Associated Problems Recent Progress Patient-Stated? Author BH-Pain Behavioral Health Improving(03/2022 12:53 PM REACTOR FUELING SUPERVISOR) Betty Aiken, RN Note: Patient will establish a comfort-function goal and identify the pain level that will allow the patient to perform desired activities and achieve an acceptable quality of life. documented as of this encounter Visit Diagnoses Not on filedocumented in this encounter Care Teams Jumpbasting Facing Baster Relationship Specialty Start Date End Date Faith Hamm NP [address] [facility] [address] [place] [address] PCP - General Family Medicine 10/16/23 [place] [address] [address] [facility] [address] [address] Consulting Physician Endocrinology 03/29/18 [place] [address] [address] [facility] [address] [address] Consulting Physician Nephrology 02/27/21 Thomas Ordoñez MD [address] [facility] MEDICAL ONCOLOGY, [facility] [address] [place] [address] Consulting Physician Medical Oncology 05/22/21 Joseph Mccullough MD [address] [place] [address] [address] [place] [address] Consulting Physician Gastroenterology 03/19/23 documented as of this encounter
--- OUTSIDE RECORDS SUMMARY | 2024-09-04 15:37 | XMS_ITS | Encounter Summary ---
Author Organization [facility] Address [address] [place] [address] Care Team Providers Care Greens Tier Name Role Phone Naun Georges MD Unavailable [phone] Di Demarco MD Unavailable [phone] Thomas Ordoñez MD Unavailable Joseph Mccullough MD Unavailable [phone] Faith Hamm NP Primary Care Provider [phone] Encounter Details Date Type Department Care Team (Latest Contact Info) Description 08/09/2024 Results Follow-Up [facility] Primary Care at [address] [place] [address] Faith Hamm, SALES ACCOUNT COORDINATOR [address] [place] [address] [address] [place] [address] Comprehensive metabolic panel, CBC with auto differential, Sepsis Lactate w/ Reflex, Additional followed-up results: 57 Social History Tobacco Use Types Packs/Day Years [...] materials from doctor or pharmacy Never 03/11/2023 [facility] Utilities Answer Date Recorded In the [...] often do you attend chur ch or zoroastrianism services? 1 to 4 times per year 08/05/2024 Do you belong to any clubs o r organizations such as uatsdin groups, unions, fraternal or athletic groups, or [...] place to sleep or slept in a detention (including now)? No 04/13/2023 PHQ-9 Answer Date [...] any time in the past 12 [facility], were you homeless or living in a detention (including now)? No 08/05/2024 Personal Safety Answer [...] on file Legal Sex Female 5:37 PM LASER BEAM COLOR SCANNER OPERATOR Gender Identity Not on file Sexual Orientation Not on file documented as of this encounter Plan of Treatment Upcoming Encounters Date Type Department Care Team (Late st Contact Info) Description 09/06/2024 9:00 AM CDT Hospital Encounter [facility] Operating Room [address] [place] [phone] [place] [address] [place] [address] 09/06/2024 9:00 AM CDT Anesthesia Event [facility] Operating Room [facility] [place] [address] Nadya Bradley NP [address] [place] [address] 09/06/2024 9:00 AM CDT - 09/06/2024 11:00 AM CDT Surgery [facility] Operating Room [address] [place] [phone] [place] [address] [address] [facility] [address] [place] [address] Colpocleisis Scheduled Procedures Name Priority Associated Diagnoses Date/Ti me COLPOCLEISIS Vaginal vault prolapse 09/06/2024 9:00 AM CDT documented as of this encounter Goals Goal Patient Goal Type Associated Problems Recent Progress Patient-Stated? Author BH-Pain Behavioral Health Improving(03/2022 12:53 PM LASER BEAM COLOR SCANNER OPERATOR) Betty Aiken, CIRA Note: Patient will establish a comfort-function goal and identify the pain level that will allow the patient to perform desired activities and achieve an acceptable quality of life. documented as of this encounter Visit Diagnoses Not on filedocumented in this encounter Care Teams Greens Tier Relationship Specialty Start Date End Date Faith Hamm NP [address] [facility] [address] [place] [address] PCP - General Family Medicine 10/16/23 [place] [address] [address] [facility] [address] [place] [address] Consulting Physician Endocrinology 03/29/18 [place] [address] [address] [facility] [address], [place] [address] Consulting Physician Nephrology 02/27/21 Thomas Ordoñez MD [address] [facility] MEDICAL ONCOLOGY, [facility] [address] [place] [address] Consulting Physician Medical Oncology 05/22/21 Joseph Mccullough MD [address] [place] [address] [address] Consulting Physician Gastroenterology 03/19/23 documented as of this encounter
--- OUTSIDE RECORDS SUMMARY | 2024-09-04 15:37 | XMS_ITS | Clinical Summary ---
Author Organization [facility] Address [address] [place] [address] Care Team Providers Care Hand Edge Bander Name Role Phone Unavailable Primary Care Provider Unavailabl e Source Comments [facility] [employer],non-owned Affiliates and Associated Physician Practices is amultiple site organization consisting of ambulatory clinics and hospital sitesin [place], [place], [place] and [place]. This disclosure is being madepursuant to the Care Everywhere program and may not contain all information available regarding this patient. Last updated 17.[facility] [employer] Social History Tobacco Use Types Packs/Day Years Used Date Smoking Tobacco: Never Assessed Comments Unknown Sex and Gender Information Value Date Recorded Sex Assigned at Not on file Legal Sex Female 6:24 PM SKEIN YARD DRIER Gender Identity Not on file Sexual Orientation [...]
--- OUTSIDE RECORDS SUMMARY | 2024-09-04 15:37 | XMS_ITS | Encounter Summary ---
Author Organization [facility] Healthcare Address [address] [place] [address] Care Team Providers Care Vault Clerk Name Role Phone Naun Georges MD Unavailable [phone] Di Demarco MD Unavailable [phone] Thomas Ordoñez MD Unavailable Joseph Mccullough MD Unavailable [phone] Faith Hamm NP Primary Care Provider [phone] Reason for Visit * Reason Onset Date Comments Referral Request 12/30/2023 Encounter Details Date Type Department Care Team (Late st Contact Info) Description 12/30/2023 Telephone [facility] Group Primary Care at [address] [place] [address] Faith Hamm NP [address] [place] [address] [address] [place] [address] Referral Request Social History Tobacco [...] materials from doctor or pharmacy Never 03/11/2023 [facility] Utilities Answer Date Recorded In the [...] often do you attend chur ch or sikhism services? More than 4 times per year 04/13/2023 Do you belong to any clubs o r organizations such as druze groups, unions, fraternal or athletic groups, or [...] place to sleep or slept in a intermediate (including now)? No 04/13/2023 Personal Safety Answer [...] on file Legal Sex Female 5:37 PM CYLINDER HONER Gender Identity Not on file Sexual Orientation Not on file documented as of this encounter Miscellaneous Notes * Telephone Encounter - Pinky Flores MA - 01/04/2024 1:13 PM CYLINDER HONER Patient called back and NDER HONER * Telephone Encounter - Lazara Ocasio - 01/04/2024 1:12 PM CST Call Back Caller???s Concern: Patient is returning call to Angie to give information. CS warm transferred call to backline Does message need to be routed? No NDER HONER * Telephone Encounter - Angie Serna MA - 01/04/2024 12:53 PM CST Spoke with her, Uncomfortable when sitting. Urinary urgency. Pt states urologist office is at [facility] and gave me a phone number of [phone] but that phone number is not working when I tried to call. Pt states she will do some research and call back with the info. NDER HONER * Telephone Encounter - [facility] - [...] Description 09/06/2024 9:00 AM CDT Hospital Encounter [facility] Operating Room [address] [place] [address] [phone] [place] [address] [place] [address] 09/06/2024 9:00 AM CDT Anesthesia Event [facility] Operating Room [address] [place] [phone] [place] [address] [place] [phone] 09/06/2024 9:00 AM CDT - 09/06/2024 11:00 AM CDT Surgery [facility] Operating Room [address] [place] [phone] [place] [address] [facility] [address] [place] [address] Colpocleisis Scheduled Procedures Name Priority Associated Diagnoses Date/Ti me COLPOCLEISIS Vaginal vault prolapse 09/06/2024 9:00 AM CDT documented as of this encounter Goals Goal Patient Goal Type Associated Problems Recent Progress Patient-Stated? Author BH-Pain Behavioral Health Improving(03/2022 12:53 PM CYLINDER HONER) Betty Aiken, RN Note: Patient will establish a comfort-function goal and identify the pain level that will allow the patient to perform desired activities and achieve an acceptable quality of life. documented as of this encounter Visit Diagnoses Not on filedocumented in this encounter Care Teams Vault Clerk Relationship Specialty Start Date End Date Faith Hamm NP [address] [facility] [address] [place] [address] PCP - General Family Medicine 10/16/23 [place] [address] [address] [facility] [address] [address] Consulting Physician Endocrinology 03/29/18 [place] [address] [address] [address] Consulting Physician Nephrology 02/27/21 Thomas Ordoñez MD [address] [facility] MEDICAL ONCOLOGY, [address] [address] Consulting Physician Medical Oncology 05/22/21 Joseph Mccullough MD [address] [place] [address] [address] [place] [address] Consulting Physician Gastroenterology 03/19/23 documented as of this encounter
--- OUTSIDE RECORDS SUMMARY | 2024-09-04 15:37 | XMS_ITS | Encounter Summary ---
Author Organization [facility] Healthcare Address [address] [place] [address] Care Team Providers Care Cutting Inspector Name Role Phone Naun Georges MD Unavailable [phone] Di Demarco MD Unavailable [phone] Thomas Ordoñez MD Unavailable Joseph Mccullough MD Unavailable [phone] Faith Hamm NP Primary Care Provider [phone] Encounter Details Date Type Department Care Team (Late st Contact Info) Description 08/31/2024 Results Follow-Up [facility] Medical Group Primary Care at [address] [place] [address] Faith Hamm NP [address] [place] [address] [address] [place] [id number] ECG 12 lead Social History Tobacco Use Types Packs/Day Years [...] materials from doctor or pharmacy Never 03/11/2023 [facility] Utilities Answer Date Recorded In the past [...] often do you attend chur ch or episcopalian services? 1 to 4 times per year 08/05/2024 Do you belong to any clubs o r organizations such as alevism groups, unions, fraternal or athletic groups, or [...] place to sleep or slept in a mcfp (including now)? No 04/13/2023 PHQ-9 Answer Date [...] any time in the past 12 m [facility], were you homeless or living in a mcfp (including now)? No 08/05/2024 Personal Safety Answer [...] on file Legal Sex Female 5:37 PM INPUT OUTPUT CLERK Gender Identity Not on file Sexual Orientation Not on file documented as of this encounter Miscellaneous Notes * Result Encounter Note - Angie Serna MA - 09/01/2024 10:41 AM CDT CXR results still pending documented in this encounter Plan of Treatment Upcoming Encounters Date Type Department Care Team (Mike guo Contact Info) Description 09/06/2024 9:00 AM CDT Hospital Encounter [facility] Operating Room [address] [place] [address] [phone] [place] [address] [place] [address] 09/06/2024 9:00 AM CDT Anesthesia Event [facility] Operating Room [address] [place] [address] [phone] Nadya Bradley, SERG [address] [place] [address] 09/06/2024 9:00 AM CDT - 09/06/2024 11:00 AM CDT Surgery [facility] Operating Room [address] [place] [phone] [place] [address] [place] [address] Colpocleisis Scheduled Procedures Name Priority Associated Diagnoses Date/Ti me COLPOCLEISIS Vaginal vault prolapse 09/06/2024 9:00 AM CDT documented as of this encounter Goals Goal Patient Goal Type Associated Problems Recent Progress Patient-Stated? Author BH-Pain Behavioral Health Improving(03/2022 12:53 PM INPUT OUTPUT CLERK) Betty Aiken, RN Note: Patient will establish a comfort-function goal and identify the pain level that will allow the patient to perform desired activities and achieve an acceptable quality of life. documented as of this encounter Visit Diagnoses Not on filedocumented in this encounter Care Teams Cutting Inspector Relationship Specialty Start Date End Date Faith Hamm NP [address] [facility] [address] [place] [address] PCP - General Family Medicine 10/16/23 [place] [address] [facility] [address] [address] Consulting Physician Endocrinology 03/29/18 [place] [address] [address] [facility] [address], [place] [address] Consulting Physician Nephrology 02/27/21 Thomas Ordoñez MD [address] [facility] MEDICAL ONCOLOGY, [address] 14[address]31 Consulting Physician Medical Oncology 05/22/21 Joseph Mccullough MD [address] [place] [address] DR [address] [place] [address] Consulting Physician Gastroenterology 03/19/23 documented as of this encounter
--- OUTSIDE RECORDS SUMMARY | 2024-09-04 15:37 | XMS_ITS | Data Portability ---
Author Organization [facility] Address [address] [place] [address] [address] Care Team Providers Care Direct Support Professional Home Health Name Role Phone FAITH JAMIL Primary Care Provider [phone] Assessment No assessment recorded. Plan of Treatment Reminders Order Date Submit Date Provider Last Modified By Organization Details Last Modified Time Details Appointments None recorded. Lab None recorded. Referral None recorded. Procedures fitting and insertion , pessary (PROC) [address], [address], [place], [address], 14:19:55 Surgeries None recorded. Imaging None recorded. Medication Orders clotrimaz ole-betam ethasone 1 %-0.05 % topical cream [address] [facility] [address] In [facility], [facility], [place], [place], [phone], 12:39:07 Patient TargetsNo targets recorded. Patient InstructionsNo instructions recorded. Reason for Referral None Reported. Results Created Date Observation Date Name Description Value Unit Range Abnormal Flag Note LastModifiedBy Organization Detail LastModifiedTime 04/06/1904/06/2024 fitti ng and inser tion, pessa ry (PROC ) provider notes Not Available [facility] [address], [place], [address], 04/06/2024 14:19:05 Result Notes None recorded. Procedures Surgical History Date Name Laterality Status Provider Name and Address Organization Details Recorded Time 04/06/19 25 Pessary Insertion completed Idris Webb MD [address], [place], [address], [facility] 04/06/2024 15:54:26 04/05/19 25 Pessary Insertion completed Idris Webb MD [address], [place], [address], [facility] 04/05/2024 12:42:35 03/02/19 22 Mastectomy completed [facility] 04/05/2024 11:59:26 03/02/18 74 Total Hysterectomy completed [facility] 04/05/2024 11:59:07 Imaging Results None recorded. Procedure Notes None recorded. Medical Equipment None Reported. Allergies Allergen ID Allergen Name Allergen Category Reaction Reaction Severity Criticality Documentation Date Start Date Code Code System Note Provider Name and Address Organization Details Recorded Time 83007 codeine medicatio n Not available Not available Not available 04/05/[address] [facility] 5 11:39:55 47652 Product containin g penicilli n (product) medicatio n Not available Not available Not available 04/05/2024 [address]2312 8001 SNOMED [facility] 11:40:17 Medications Name Sig [...] 0.5 TABLETS (10 MG TOTAL) BY MOUTH FINISH REPAIRER BEFORE BREAKFAST 04/05 completed Not Available Not [...] Updated DateTime 04/06/2024 157.48 cm 26.3 kg/m2 10880.3 g 118/66 mm[Hg] Mary Stone [facility] 04/06/2024 11:43:27 Social History Question Answer Notes LastModified by Organizat ion Details LastModified Time Tobacco Smoking Status Never Smoker Mary Stone [facility] 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 [id number] Idris Webb MD [facility] [address],[facility] [place] [address] 04/06/2024 10:57:49 04/06/2024 16:11:32 Prolapse of female genital organs 56165141 N81.9 Health Concerns Section Related Observation LastModified by Organization Detai ls LastModified Time None Recorded Concern Status LastModified by Organization Details LastModified Time None Recorded Advance Directives Directive None Recorded Payers Insurance Date Sequence Insurance Name Policy Number Policy Wan Covered Member ID Wan Member ID Guarantor Name 04/10/2024 1 [facility] (MEDICARE REPLACEMENT/A DVANTAGE - PPO) [id number] Faith Lester [id number] Faith Lester Notes Date Note Type Note [...] vulva. Idris Webb MD [address], [place], [address], [facility] 04/05/2024 12:43:45 04/06/2024 text/html Year old female who was fitted with a 2-1/2 inch ring with support pessary. The pessary fell out. . She has complete procidentia of the vagina. A 2-1/2 inch Gellhorn was placed. It is snug along the lateral aspects of the vagina. To observe. It will likely function appropriately. Idris Webb MD [address], [place], [address], [facility] 04/06/2024 15:55:03 OBGyn Episode Ob Episode Information Episode Created Date Number of Fetuses Patient Bloodtype Patient rh Status Prepregnancy Weight lbs Domestic Partner Domestic Partner Phone Father Name Sawmill Moulder Operator Status 04/05/19 25 1 CLOSED Fetus Data First Name Last Name Admitted to NICU Weight (g) Sex Living Outcome Pediatric Complications Fetus ID Race Codes Race Delivery Type Full Term [id number] Vaginal Delivery Daniel Calculation Initial Daniel Date [...] Post Complications Tubal Sterilization Discharge Date Comments Discharge Information Feeding Method Contraceptive Method Maternal HG B and HCT Levels
--- OUTSIDE RECORDS SUMMARY | 2024-09-04 15:37 | XMS_ITS | Encounter Summary ---
Author Organization [facility] Address [address] [place] [address] Phone Care Team Providers Care Loan Closer Name Role Phone Hank Seymour MD Unavailable [phone] Sandip Murphy MD Unavailable [phone] Sony Patel MD Unavailable + Mariah Rose MD Unavailable [phone] Con Pete MD, Emrrill Unavailable [phone] Natalia Vang DO Primary Care Provider [phone] Urban To APRN, CNP Unavailable [phone] Reason for Visit * Reason Onset Date Comments Medication Refill 03/25/2023 Encounter Details Date Type Department Care Team (Late st Contact Info) Description 03/25/2023 Refill [facility] [address] [place] [address] Zack Mccullough, PAC [address] [place], [place] [address] Medication Refill Social History Tobacco Use Types [...] Primary documented in this encounter Care Teams Loan Closer Relationship Specialty Start Date End Date Natalia Vang DO [address] [address] PCP - General Family Medicine 07/20/20 Hank Seymour MD Consulting Physician Radiation Oncology 07/31/15 Sandip Murphy MD Consulting Physician General Surgery 07/31/15 Sony Patel MD [address] [address] Consulting Physician Endocrinology 07/31/15 Mariah Rose MD 1 [place] [address] Consulting Physician Wound Care 07/31/15 Merrill Andujar Jr., MD [facility] [place] [address] Consulting Physician Oncology 07/31/15 Urban To APRN, HVAC MAINTENANCE TECHNICIAN [address] [place] [address] Nurse Practitioner Advanced Practice Nurse 03/28/23 documented as of this encounter
--- OUTSIDE RECORDS SUMMARY | 2024-09-04 15:37 | XMS_ITS | Clinical Summary ---
Author Organization [facility] Address [address] [place] [address] Phone Care Team Providers Care Graduate Assistant Athletic Trainer Name Role Phone Hank Seymour MD Unavailable [phone] Sandip Murphy MD Unavailable [phone] Sony Patel MD Unavailable + Mariah Rose MD Unavailable [phone] Con Pete MD, Merrill Unavailable [phone] Natalia Vang DO Primary Care Provider Urban To APRN, BOOM CRANE OPERATOR Unavailable [phone] Allergies Active Allergy Reactions Criticality Noted Date Comments Codeine Unknown Penicillins Unknown Medications anastrozole (ARIMIDEX) 1 MG Tablet Take 1 mg by mouth daily. Active NOVOLOG FLEXPEN 100 UNIT/ML Solution Pen-injector 15 Units by Subcutaneous route. 3 03/27/19 16 Active B-D UF III MINI PEN NEEDLES 31G X 5 MM [facility] [place] 4 04/09/19 16 Active [...] HTN (hypertension) OA (osteoarthritis) Fibromyalgia Polymyalgia rheumatica Immunizations Immunization Administration Dates Next Due Covid-19, [...] Comments Blood Pressure 105/66 03/28/2024 2:10 PM CELL PLASTERER Pulse 55 03/28/2024 2:10 PM CELL PLASTERER Temperature 36.4 C (97.5 F) 11/27/2015 11:04 AM CDT Respiratory Rate 14 03/28/2024 2:10 PM CELL PLASTERER Oxygen Saturation 97% 03/28/2024 2:10 PM CELL PLASTERER Inhaled Oxygen Concentration - - Weight 67.1 kg (148 lb) 03/28/2024 2:10 PM CELL PLASTERER Height 165.1 cm (5' 5) 03/28/2024 2:10 PM CELL PLASTERER Body Mass Index 24.63 03/28/2024 2:10 PM CELL PLASTERER Plan of Treatment Health Maintenance Due Date [...] 12/15/2022, 05/05/2022, Additional history exists SARS-COV-2 Immunization (8 - Pfizer risk season) 2024 01/20/2024, 12/09/2022, 12/30/2021, Additional history exists Influenza Immunization (#1) 2024 11/2 , 12/09/2022, 12/09/2022, Additional history exists DTaP/Tdap/Td Immunization Discontinued 04/14/2017, 03/2005 TdaP Immunization Completed 04/14/2017 Zoster Immunization Completed 12/03/2020, 12/03/2020, 07/24/2020, Additional history exists Respiratory Syncytial Virus (RSV) Immunization (Adult) Completed 01/08/2023 Pneumococcal Immunization (50+ years) Completed 01/20/2024, 04/14/2017, 03/02/2006 Pneumococcal Immunization Combined Discontinued 01/20/2024, 04/14/2017, 03/02/2006 Hepatitis B Immunization Aged Out No longer eligible based on patient's age to complete this topic Human Papillomavirus (HPV) Immunization Aged Out No longer eligible based [...] 03/11/2018 Infected nailbed of toe, unspecified laterality [facility] SCREENING BILATERAL DIGITAL W CAD Routine 08/26/2016 Visit for screening mammogram DILATED EYE EXAM Routine 02/07/2016 [facility] BONE DENSITOMETRY AXIAL SKELETON Routine 04/09/2015 2:23 PM CELL PLASTERER Closed fracture of femur with routine healing, unspecified fracture morphology, unspecified laterality, unspecified portion of femur, subsequent encounter Abnormal Bone Density Screening from Last 3 Months or Most Recently Relevant to Health Maintenance Results * EXTERNAL PODIATRY REFERRAL (03/11/2018) us Lavinia Padgett MD OUTPT REFERRALS EXT/INT Kaylah l Result * [facility] SCREENING BILATERAL DIGITAL W CAD (08/26/2016) Anatomical Region Laterality Modality breast Bilateral Mammography us Bashir Uribe MD IMG MAMMO ORDERABLES Kaylah l Result * DILATED EYE EXAM (02/07/2016) us Simba Posadas MD PROCEDURE/MINOR SURGICAL ORDE RABLES Final Result * [facility] [place] BONE DENSITOMETRY AXIAL SKELETON (04/09/2015 2:23 PM CELL PLASTERER) Anatomical Region Laterality Modality BODY N/A Other 04/09/2015 4:13 PM CELL PLASTERER Impressions 04/09/2015 4:16 PM CELL PLASTERER IMPRESSION: 1. Low bone mass by WHO [...] of Osteoporosis (http://www.nof.org/professionals/clinical-guidelines) Narrative 04/09/2015 4:16 PM CELL PLASTERER EXAMINATION: Bone density examination (hip and spine). HISTORY: 80 year old postmenopausal female with given history of femur fracture. Current Height: 64 inches Maximum Height: 66 inches Weight: 153 pounds RISK FACTORS: Left hip fracture as an adult. COMPARISON(S): August 28, 2010. EXPRESS MANAGER/MODEL: [employer] (S/N [id number] FINDINGS: AP lumbar spine L1-L4 Total BMD is 1.029 g/in3D-fkgpz is -1.3 Most recent prior BMD was 1.059 g/cm2 There has been a 2.8% decrease in BMD which is statistically significant. Left Hip Current Total BMD is 0.837 g/ju0C-igdlv is -1.4 Most recent prior Total BMD was 0.941 g/cm2 There has been a 11.1% decrease in BMD which is statistically significant. Current femoral neck BMD is 0.749 g/oh0R-lmzyg is -2.1 Thomas Davila M.D. THIS IS [...] as an adult. COMPARISON(S): August 28, 2010. EXPRESS MANAGER/MODEL: [employer] (S/N [id number] FINDINGS: AP lumbar spine L1-L4 Total BMD is 1.029 g/hw9Y-oljav is -1.3 Most recent prior BMD was 1.059 g/cm2 There has been a 2.8% decrease in BMD which is statistically significant. Left Hip Current Total BMD is 0.837 g/zj3R-kdvoc is -1.4 Most recent prior Total BMD was 0.941 g/cm2 There has been a 11.1% decrease in BMD which is statistically significant. Current femoral neck BMD is 0.749 g/ia2F-ugdpn is -2.1 Thomas Davila M.D. THIS IS [...] Relevant to Health Maintenance Insurance MEDICARE [employer] Care Teams Graduate Assistant Athletic Trainer Relationship Specialty Start Date End Date Natalia Vang DO 2 [facility] [place] [address] PCP - General Family Medicine 07/20/20 Hank Seymour MD Consulting Physician Radiation Oncology 07/31/15 Sandip Murphy MD Consulting Physician General Surgery 07/31/15 Sony Patel MD [address] [address] Consulting Physician Endocrinology 07/31/15 Mariah Rose MD 1 [place] [address] Consulting Physician Wound Care 07/31/15 Merrill Andujar Jr., MD [address] [place] [address] Consulting Physician Oncology 07/31/15 Urban To APRN, BOOM CRANE OPERATOR [address] [place] [address] Nurse Practitioner Advanced Practice Nurse 03/28/23
--- OUTSIDE RECORDS SUMMARY | 2024-09-04 15:37 | XMS_ITS | Encounter Summary ---
Author Organization [facility] Address [address] [place] [address] Care Team Providers Care Coat Tailor Name Role Phone Devaughn Bazan DO Unavailable [phone] Natalia Vang DO Primary Care Provider [phone] Naun Georges MD Unavailable [phone] Frankie Bright MD Unavailable [phone] Di Demarco MD Unavailable [phone] Thomas Ordoñez MD Unavailable Anne Marie Platt [facility] Unavailable [phone] Naun Georges MD Unavailable [phone] Mendez Shine RN Unavailable [phone] Joseph Mccullough MD Unavailable [phone] Faith Hamm NP Primary Care Provider [phone] Reason for Visit * Reason Onset Date Comments Scheduling Appointments 04/04/2020 DEXA rem kacey; no answer Encounter Details Date Type Department Care Team (Late st Contact Info) Description 04/04/2020 Telephone [facility] [address] [place] [id number] Renata Wong RT Scheduling Appointments (DEXA reminder; [...] on file Legal Sex Female 5:37 PM TEXTILES SALES REPRESENTATIVE Gender Identity Not on file Sexual Orientation Not on file documented as of this encounter Plan of Treatment Upcoming Encounters Date Type Department Care Team (Late st Contact Info) Description 09/06/2024 9:00 AM CDT Hospital Encounter [facility] Operating Room [address] [place] [address] [phone] [place] [address] [place] [address] 09/06/2024 9:00 AM CDT Anesthesia Event [facility] Operating Room [address] [place] [address] [phone] Nadya Bradley, ESRG [address] [place] [address] 09/06/2024 9:00 AM CDT - 09/06/2024 11:00 AM CDT Surgery [facility] Operating Room [address] [place] [address] [phone] [place] [address] [place] [address] Colpocleisis Scheduled Procedures Name Priority Associated Diagnoses Date/Ti me COLPOCLEISIS Vaginal vault prolapse 09/06/2024 9:00 AM CDT documented as of this encounter Goals Goal Patient Goal Type Associated Problems Recent Progress Patient-Stated? Author BH-Pain Behavioral Health Improving(03/2022 12:53 PM TEXTILES SALES REPRESENTATIVE) No Betty Elizabeth, CIRA Note: Patient will [...] COVID: Suspected 05/03/2021 05/03/2021 05/04/2021 3:05 AM TEXTILES SALES REPRESENTATIVE COVID: Suspected 05/03/2021 05/03/2021 05/04/2021 7:39 PM TEXTILES SALES REPRESENTATIVE COVID: Suspected 12/30/2022 12/30/2022 12/30/2022 10:47 AM CDT documented as of this encounter Care Teams Coat Tailor Relationship Specialty Start Date End Date Natalia Vang DO PCP - General Family Medicine 10/09/17 10/15/23 Faith Hamm NP [address] [facility] [address] [place] [address] PCP - General Family Medicine 10/16/23 Devaughn Bazan DO Surgeon Otolaryngology 03/26/17 11/09/23 [place] [address] [address] [address] Consulting Physician Endocrinology 03/29/18 [place] [address] [address] [address] Anesthesiologist Pain Management 10/20/19 11/09/23 [place] [address] [address] [address] Consulting Physician Nephrology 02/27/21 Thomas Ordoñez MD [address] [facility], [address] [address] Consulting Physician Medical Oncology 05/22/21 Anne Marie Platt [address] [place] [address] Pharmacist Pharmacy 08/23/21 08/25/21 [place] [address] [address] [address] Consulting Physician Endocrinology 12/15/22 11/09/23 Mendez Shine RN [address] [place] [address] [address] [place] [address] Elevator Operator Freight 03/06/23 04/12/23 Joseph Mccullough MD [address] [place] [address] [address] [place] [address] Consulting Physician Gastroenterology 03/19/23 documented as of this encounter
--- OUTSIDE RECORDS SUMMARY | 2024-09-04 15:37 | XMS_ITS | Encounter Summary ---
Author Organization [facility] Healthcare Address [address] [place] [address] Care Team Providers Care Home Energy Inspector Name Role Phone Naun Georges MD Unavailable [phone] Di Demarco MD Unavailable [phone] Thomas Ordoñez MD Unavailable Joseph Mccullough MD Unavailable [phone] Faith Hamm NP Primary Care Provider [phone] Reason for Visit * Reason Onset Date Comments Appointment Request 08/17/2024 Encounter Details Date Type Department Care Team (Late st Contact Info) Description 08/17/2024 Telephone [facility] Primary Care at [address] [place] [address] Faith Hamm NP [address] [place] [address] [address] [place] [address] Appointment Request Social History Tobacco Use Types Packs/Day [...] often do you attend chur ch or islam services? 1 to 4 times per year 08/05/2024 Do you belong to any clubs o r organizations such as evangelical groups, unions, fraternal or athletic groups, or [...] place to sleep or slept in a assisted (including now)? No 04/13/2023 PHQ-9 Answer Date [...] any time in the past 12 m [facility], were you homeless or living in a assisted (including now)? No 08/05/2024 Personal Safety Answer [...] on file Legal Sex Female 5:37 PM EMISSIONS INSPECTOR Gender Identity Not on file Sexual Orientation Not on file documented as of this encounter Miscellaneous Notes * Telephone Encounter - Angie Serna MA - 08/17/2024 2:20 PM CDT Spoke with her, appt made for 08/30 * Telephone Encounter - Angie Serna MA - 08/17/2024 1:36 PM CDT Called Faith, she is currently in a rehab facility, [facility] in [place]. I called Faith's daughter Soraya but no answer, left her a vm asking her to call me back. * Telephone Encounter - Mariaa Ricketts - 08/17/2024 12:58 PM CDT Appointment Request What visit type does the patient need? Visit Type: Established Patient What is the reason for the visit? Surgical Clearace for prolapse bladder. Surgery is for September 06. What is the reason we were unable to schedule the appointment? Current appointment availability didnot meet patient's need. If applicable, were all members of the patient's PCP care team offered (e.g., nurse practioner(s), physician server assistant(s)) ? N/A Additional Comments: None Does message need to be routed? Yes-Action Needed documented in this encounter Plan of Treatment Upcoming Encounters Date Type Department Care Team (Late st Contact Info) Description 09/06/2024 9:00 AM CDT Hospital Encounter [facility] Operating Room [address] [place] [address] [phone] [place] [address] [place] [address] 09/06/2024 9:00 AM CDT Anesthesia Event [facility] Operating Room [address] [place] [address] [phone] Nadya Bradley NP [address] [place] [address] 09/06/2024 9:00 AM CDT - 09/06/2024 11:00 AM CDT Surgery [facility] Operating Room [address] [place] [phone] [place] [address] [place] [address] Colpocleisis Scheduled Procedures Name Priority Associated Diagnoses Date/Ti me COLPOCLEISIS Vaginal vault prolapse 09/06/2024 9:00 AM CDT documented as of this encounter Goals Goal Patient Goal Type Associated Problems Recent Progress Patient-Stated? Author BH-Pain Behavioral Health Improving(03/2022 12:53 PM EMISSIONS INSPECTOR) Betty Aiken, RN Note: Patient will establish a comfort-function goal and identify the pain level that will allow the patient to perform desired activities and achieve an acceptable quality of life. documented as of this encounter Visit Diagnoses Not on filedocumented in this encounter Care Teams Home Energy Inspector Relationship Specialty Start Date End Date Faith Hamm NP [address] [facility] [address] [place] [address] PCP - General Family Medicine 10/16/23 [place] [address] [address] [address] Consulting Physician Endocrinology 03/29/18 [place] [address] [address] [address] Consulting Physician Nephrology 02/27/21 Thomas Ordoñez MD [address] [facility], [address] [address] Consulting Physician Medical Oncology 05/22/21 Joseph Mccullough MD [address] [place] [address] [address] [place] [address] Consulting Physician Gastroenterology 03/19/23 documented as of this encounter
--- OUTSIDE RECORDS SUMMARY | 2024-09-04 15:37 | XMS_ITS | Encounter Summary ---
Author Organization [facility] Healthcare Address [address] [place] [address] Care Team Providers Care Weld Lay Out Worker Name Role Phone Devaughn Bazan DO Unavailable [phone] Natalia Vang DO Primary Care Provider [phone] Naun Georges MD Unavailable [phone] Frankie Bright MD Unavailable [phone] Di Demarco MD Unavailable [phone] Thomas Ordoñez MD Unavailable Anne Marie Platt [facility] Unavailable [phone] Naun Georges MD Unavailable [phone] Mendez Shine RN Unavailable [phone] Joseph Mccullough MD Unavailable Faith Hamm NP Primary Care Provider [phone] Reason for Visit * Reason Onset Date Comments Scheduling Appointments 05/23/2020 Reminder call for DEXA, No answer Encounter Details Date Type Department Care Team (Late st Contact Info) Description 05/23/2020 Telephone [facility] [address] [place] [address] Kristina Pierre RT Scheduling Appointments (Reminder call [...] on file Legal Sex Female 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 Gender Identity Not on file Sexual Orientation Not on file documented as of this encounter Plan of Treatment Upcoming Encounters Date Type Department Care Team (Late st Contact Info) Description 09/06/2024 9:00 AM CDT Hospital Encounter [facility] Operating Room [address] [place] [address] [phone] [place] [address] [place] [address] 09/06/2024 9:00 AM CDT Anesthesia Event [facility] Operating Room [address] [place] [address] [phone] Nadya Bradley, SERG [address] [place] [address] 09/06/2024 9:00 AM CDT - 09/06/2024 11:00 AM CDT Surgery [facility] Operating Room [address] [place] [address] [phone] [place] [address] [place] [address] Colpocleisis Scheduled Procedures Name Priority Associated Diagnoses Date/Ti me COLPOCLEISIS Vaginal vault prolapse 09/06/2024 9:00 AM CDT documented as of this encounter Goals Goal Patient Goal Type Associated Problems Recent Progress Patient-Stated? Author BH-Pain Behavioral Health Improving(03/2022 12:53 PM MANAGER LONG TERM CARE) No Betty Elizabeth, CIRA Note: Patient will [...] COVID: Suspected 05/03/2021 05/03/2021 05/04/2021 3:05 AM MANAGER LONG TERM CARE COVID: Suspected 05/03/2021 05/03/2021 05/04/2021 7:39 PM MANAGER LONG TERM CARE COVID: Suspected 12/30/2022 12/30/2022 12/30/2022 10:47 AM CDT documented as of this encounter Care Teams Weld Lay Out Worker Relationship Specialty Start Date End Date Natalia Vang DO PCP - General Family Medicine 10/09/17 10/15/23 Faith Hamm NP [address] [address] PCP - General Family Medicine 10/16/23 Devaughn Bazan DO Surgeon Otolaryngology 03/26/17 11/09/23 [place] [address] [address] [address] Consulting Physician Endocrinology 03/29/18 [place] [address] [address] [id number] Anesthesiologist Pain Management 10/20/19 11/09/23 [place] [address] [address] [address] Consulting Physician Nephrology 02/27/21 Thomas Ordoñez MD [address] [facility], [address] [address] Consulting Physician Medical Oncology 05/22/21 Anne Marie Platt [address] [place] [address] Pharmacist Pharmacy 08/23/21 08/25/21 [place] [address] [address] [facility] [address], [place] [address] Consulting Physician Endocrinology 12/15/22 11/09/23 Mendez Shine RN [address] [place] [address] [address] [place] [address] Cigarette Maker 03/06/23 04/12/23 Joseph Mccullough MD [address] [place] [address] [address] [place] [address] Consulting Physician Gastroenterology 03/19/23 documented as of this encounter
--- OUTSIDE RECORDS SUMMARY | 2024-09-04 15:37 | XMS_ITS | Encounter Summary ---
Author Organization [facility] Healthcare Address [address] [place] [address] Care Team Providers Care Mannequin Maker Name Role Phone Naun Georges MD Unavailable [phone] Di Demarco MD Unavailable [phone] Thomas Ordoñez MD Unavailable Joseph Mccullough MD Unavailable [phone] Faith Hamm NP Primary Care Provider [phone] Encounter Details Date Type Department Care Team (Late st Contact Info) Description 08/31/2024 Results Follow-Up [facility] Emergency Department [address] [place] [address] Willie Rodríguez PA 1 [facility] [address] Urine culture Urine, indwelling catheter Social History Tobacco Use Types Packs/Day Years [...] materials from doctor or pharmacy Never 03/11/2023 [facility] Utilities Answer Date Recorded In [...] often do you attend chur ch or adventist services? 1 to 4 times per year 08/05/2024 Do you belong to any clubs o r organizations such as yarsanism groups, unions, fraternal or athletic groups, or [...] place to sleep or slept in a retirement (including now)? No 04/13/2023 PHQ-9 Answer Date [...] any time in the past [address] [facility], were you homeless or living in a retirement (including now)? 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 Ciprofloxacin may be a suitable treatment option for urinary tract infection caused by Enterobacter cloacae. documented in this encounter Plan of Treatment Upcoming Encounters Date Type Department Care Team (Late st Contact Info) Description 09/06/2024 9:00 AM CDT Hospital Encounter [facility] Operating Room [address] [place] [phone] [place] [address] [place] [address] 09/06/2024 9:00 AM CDT Anesthesia Event [facility] Operating Room [address] [place] [address] [phone] Nadya Bradley, SERG [address] [place] [address] 09/06/2024 9:00 AM CDT - 09/06/2024 11:00 AM CDT Surgery [facility] Operating Room [address] [place] [phone] [place] [address] [place] [address] Colpocleisis Scheduled Procedures Name Priority Associated Diagnoses Date/Ti me COLPOCLEISIS Vaginal vault prolapse 09/06/2024 9:00 AM CDT documented as of this encounter Goals Goal Patient Goal Type Associated Problems Recent Progress Patient-Stated? Author [facility]al [facility] Improving(03/2022 12:53 PM MORNING NEWS ANCHOR) Betty Aiken, CIRA Note: Patient will establish a comfort-function goal and identify the pain level that will allow the patient to perform desired activities and achieve an acceptable quality of life. documented as of this encounter Visit Diagnoses Not on filedocumented in this encounter Care Teams Mannequin Maker Relationship Specialty Start Date End Date Faith Hamm, SERG [address] [facility] [address] [place] [address] PCP - General Family Medicine 10/16/23 [place] [address] [address] Consulting Physician Endocrinology 03/29/18 [place] [address] [address] Consulting Physician Nephrology 02/27/21 Thomas Ordoñez MD [address] [facility] MEDICAL ONCOLOGY, [address] [address] Consulting Physician Medical Oncology 05/22/21 Joseph Mccullough MD [address] [place] [address] [address] Consulting Physician Gastroenterology 03/19/23 documented as of this encounter
--- OUTSIDE RECORDS SUMMARY | 2024-09-04 15:38 | XMS_ITS | Continuity of Care Document ---
Author Organization [facility] Address [address] [place] [address] Phone Care Team Providers Care Campus Wellness Coordinator Name Role Phone Cuauhtemoc CARPIO, Simba Unavailable [...] Diagnoses Date Provider Providers Copied on Encounter [facility], [address], [place], [place], [address], [place] tel:[phone] SEC Tam[place] Professional Diabetic eye exam (chief complaint) Nuclear sclerotic cataract of both eyesDry eyes, bilateralType 2 diabetes mellitus with complicationsM oderate nonproliferati ve diabetic retinopathy, without macular edema, associated with type 2 diabetes mellitus Dec-2 2- 5 Kerwinkayla Cottrell. [address] [employer], [facility] [address], [place], [place], [address], [place]. tel:[phone] [place]pa [place], [facility] [address] [place] [address] [address], [place], [place], [address], [place] tel:[phone] SEC [place] Professional F/u exam, Plaquenil therapy (chief complaint) Therapeutic Drug MonitoringSENI LE NUCLEAR CATARACTDiabet es (high blood sugar disease) affecting the eyeDiabetic retinopathy Apr-0 6201 5 Mariam Almodovar. [address], [address], [address], [place]. tel:[phone] Referring Provider: Simba Villarreal, [address] [employer] [address], [place], [address] . tel:[phone] Office/outpa [place]ient Visit, [facility] [address], [place], [place], [address], [place] tel:[phone] SEC Tam[place] Professional F/u exam, Plaquenil therapy (chief complaint) Therapeutic Drug MonitoringDiab etes (high blood sugar disease) affecting the eyeDiabetic retinopathySEN ILE NUCLEAR CATARACT Oct-0 4 Cuauhtemoc Cottrell. [address] [employer], [address], [place], [place], [address], [place]. tel:[phone] Referring Provider: Simba Villarreal [address] [employer] [address], [place], [address] . tel:[phone] Office/outpa tient Visit, [facility] [address], [place], [place], [address], [place] tel:[phone] SEC [place] RADHA Professional Diabetes Mellitus Type 2, UncomplicatedS ENILE NUCLEAR CATARACTTherap eutic Drug Monitoring May-0 4-201 4 Cuauhtemoc Cottrell. [address] [employer], [address] [place], [address], [place]. tel:[phone] Office/outpa tient Visit, [facility], [address], [place], [place], [address], [place] tel:[phone] SEC Tamir RADHA Professional Therapeutic Drug MonitoringSENI LE NUCLEAR CATARACTHORDEO LUM INTERNUMDiabet es Mellitus Type 2, Uncomplicated Sep- 3-201 3 Cuauhtemoc Cottrell. [address] [employer], [facility] [place], [address], [place]. tel:[phone] Referring Provider: Simba Villarreal, [address] [employer], [address] . tel:[phone] Office/outpa tient Visit, [facility], [address], [place], [place], [address], [place] [phone] SEC [place] RADHA Professional CHALAZION Apr- 3 Mariam Almodovar. [address] [facility], [address], [place], [address], [place]. tel:[phone] [facility], [address], [place], [place], [address], [place] tel:[phone] SEC [place] RADHA Professional No Information Fe- 3 Cuauhtemoc Cottrell. [address] [employer], [facility] [place], [address], [place]. tel:[phone] Referring Provider: Simba Villarreal, [address] [employer] [place], [address] . tel:[phone] Office/outpa tient Visit, [facility], [address], [place], [place], [address], [phone] SEC Tam[place] RADHA Professional BLEPHAROCONJUN CTIVIT NOS 8-201 2 Cauuhtemoc Cottrell. [address] [facility], [facility] [address], [place], [place], [address], [place]. tel:[phone] [facility], [address], [place], [place], [address], tel:[phone] SEC Tamir GARCIA Professional No Information 8 Isaac Kim. [facility] [employer], [address], [place], [place], [address], . tel:[phone] Referring Provider: Simba Villarreal, [address] [facility] [address], [place], [address] . tel:[phone] Office/outpa tient Visit, [facility] [employer] [facility], [address], [place], [place], [address], [place] [phone] SEC Tamir GARCIA Professional No Information 7 Isaac Kmi. [facility] [employer], [address], [place], [place], [address], [place]. tel:[phone] Referring Provider: Julio Villarreal, [facility] [employer] [address], [place], [address] . 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
--- NOTE | 2024-09-04 15:44 | ED.URI ---
HPI - URI/Sore Throat General Chief Complaint: Upper Respiratory Infection Stated Complaint: Cough/Congestion Patient presents to [facility] accompanied by family with complaints of productive cough, wheezing, headache, nasal congestion, fatigue that began about 1 week ago. Patient was recently discharged from rehab and her roommate while in rehab had a significant cough. Patient does note that she is scheduled to have surgery in 2 days for bladder but concerned due to symptoms. Family concerned for pneumonia patient concerned for COVID. Denies known fever, chills, body aches, increased dizziness, nausea, vomiting, diarrhea Related Data Home Medications ?Medication ?Instructions ?Recorded ?Confirmed ?Last Taken ?Type carvedilol 6.25 mg tablet 6.25 mg PO BID 04/08/19 09/06/20 Unknown History insulin aspart U-100 100 unit/mL 3 unit subcut TID 04/08/19 09/06/20 Unknown History (3 mL) subcutaneous pen (Novolog FlexPen U-100 Insulin aspart) insulin glargine U-300 conc 300 20 unit subcut DAILY 04/08/19 09/06/20 Unknown History unit/mL (1.5 mL) subcutaneous pen (Toujeo SoloStar U-300 Insulin) rosuvastatin 40 mg tablet 40 mg PO DAILY 04/08/19 09/06/20 Unknown History tramadol 50 mg tablet 50 mg PO HS 04/08/19 09/06/20 Unknown History aspirin 81 mg tablet,delayed 81 mg PO DAILY 09/04/20 09/06/20 Unknown History release (Adult Low Dose Aspirin) duloxetine 30 mg capsule,delayed 30 mg PO DAILY 09/04/20 09/06/20 Unknown History release lisinopril 2.5 mg tablet 2.5 mg PO DAILY 09/04/20 09/06/20 Unknown History Allergies Allergy/AdvReac Type Severity Reaction Status Date / Time codeine Allergy Unknown Chest Pain Verified 09/04/24 15:52 Penicillins Allergy Unknown Rash Verified 09/04/24 15:52 Review of Systems Constitutional: Constitutional: Reports as per HPI, Denies chills, Reports fatigue, Denies fever(s) and Denies weakness Eyes: Eyes: Reports no additional eye complaints ENT: Reports as per HPI, Denies vertigo, Reports dizziness, Reports nasal congestion and Denies sore throat Cardiovascular: Cardiovascular: Reports no additional cardiovascular complaints Respiratory: Respiratory: Reports as per HPI, Reports chest congestion, Reports cough, Denies dyspnea and Reports wheezing Gastrointestinal: Gastrointestinal: Reports no additional gastrointestinal complaints Genitourinary: Genitourinary: Reports no additional female genitourinary complaints Musculoskeletal: Musculoskeletal: Reports no additional musculoskeletal complaints Integumentary/Breasts: Skin/Breast: Reports as per HPI, Denies erythema and Denies rash Neurologic: Reports as per HPI, Reports dizziness, Denies syncope, Reports headache(s), Denies numbness and Denies weakness Psychiatric: Psychiatric: Reports no additional psychiatric complaints Endocrine: Endocrine: Reports no additional endocrine complaints Hematologic/Lymphatic: Hematologic/Lymphatic: Reports no additional hematologic/lymphatic complaints Allergic/Immunologic: Allergic/Immunologic: Reports no additional allergic/immunologic complaints [facility] Past Medical History Medical History Breast cancer Myocardial infarct 2019 Hypercholesteremia Diabetes Surgical History Surgical History History of lumpectomy of right breast History of cardiac catheterization Family History Family History Sibling Family history of arthritis Family history of lung cancer Diabetes mellitus Heart disease Father , Motor vehicle accident Alcoholism Mother , at the age of 96 Hypercholesteremia Social History Social History Smoking status: Never smoker Tobacco type: cigarettes Second hand tobacco smoke exposure: No Alcohol intake: current Substance use: never Living arrangements: with family Additional living arrangements comments: grandson lives in second-floor part of home Occupation/Education: retired Gender identity (if verbalized by the patient): Female Sexual Orientation (if Verbalized by the Patient): Straight or Heterosexual Exam Const: General: healthy appearing and no acute distress Nutritional Appearance: well nourished Orientation/consciousness: patient oriented x3 Limitations: no limitations HENMT: Head: normal to inspection Ears: external ears normal and TM abnormal dull and with fluid behind the TM; not erythematous Face/Nose/Sinus: Normal external nose present and Normal nares present Face and sinus: normal facial exam Mouth: Yes Normal oral and palatal mucosa present, Yes lip normal and Yes moist mucous membranes Throat: posterior oropharynx normal Neck: Neck: no lymphadenopathy Resp: Effort & Inspection: normal respiratory effort Auscultation: rhonchi right upper and right lower Other: congested cough noted Cardio: Rate: regular rate Rhythm: regular rhythm Skin: General skin exam: normal color Rashes: no rashes Wounds: no wounds Neuro: General: patient oriented x3 and moves all extremities Speech: normal speech Gait exam (Neuro): Normal gait present (using walker ) Psych: Mental Status: mental status grossly normal Affect: normal affect Attitude: cooperative Course Course Level of Care: Express Care Visit Vital Signs Vital signs: Vital Signs Temperature 97.4 F L 09/04/24 15:46 Pulse Rate 82 09/04/24 15:46 Respiratory Rate 18 09/04/24 15:46 Blood Pressure 142/79 H 09/04/24 15:46 Pulse Oximetry 98 09/04/24 15:46 Oxygen Delivery Room Air 09/04/24 15:46 Temperature 97.4 F L 09/04/24 15:46 Pulse Rate 82 09/04/24 15:46 Respiratory Rate 18 09/04/24 15:46 Blood Pressure 142/79 H 09/04/24 15:46 Pulse Oximetry 98 09/04/24 15:46 Oxygen Delivery Room Air 09/04/24 15:46 MDM - URI/Sore Throat MDM Narrative Medical decision making narrative: COVID-19 testing completed chest x-ray to evaluate pneumonia Discharge instructions reviewed with patient, as well as provided in writing per nursing staff. The instructions also include specific and strict return/GO TO THE ER as well as f/u information. All questions have been answered, and the patient deny any further questions with discharge and discharge plan. Differential Diagnosis Differential diagnosis: Likely upper respiratory infection, otitis media, sinusitis, viral infection, bronchitis, influenza and pharyngitis Lab Data Attestation: I reviewed the patient's lab results. Labs: Lab Results 09/04/24 Range/Units 16:15 POC SARS CoV-2 Ag Negative (Negative) Imaging Data Radiologist's impression: IMPRESSION: Streaky bibasilar atelectasis/consolidation. Trace bilateral pleural effusions. Reviewed, dictated and finalized at [facility]. [facility] signed by Kevin Hensley M.D. on 09/04/2024 17:26 CDT Discharge Plan Discharge Clinical Impression: Pneumonia, Cough Patient Disposition: Home Condition: Stable Instructions: Antibiotic Form, Bacterial Pneumonia (ED), Acute Cough (ED) Additional Instructions: Return to urgent care or go to the ER for new or worsening symptoms. Continue to take Tylenol or Motrin for pain or fever Use a humidifier or vaporizer at night. Take Medications as prescribed. Drink plenty of water. 8-10 glasses per day. Use Flonase 2 times per day for 5 days then as needed Take Delsym or Robitussin as needed for cough. Follow up with Primary provider in one week for evaluation. Take the full dose of antibiotics- ensure to take probiotics or yogurt daily with this medication. Increase water intake to 8-10 glasses per day Patient Language: Thai Prescriptions: New doxycycline monohydrate 100 mg capsule 100 mg PO BID Qty: 20 0RF No Action prednisone 20 mg tablet 40 mg PO DAILY 5 Days Qty: 10 0RF doxycycline monohydrate 100 mg tablet 100 mg PO BID 7 Days Qty: 14 0RF benzonatate [Tessalon Perles] 100 mg capsule 100 mg PO BID PRN (Reason: cough) Qty: 14 0RF insulin aspart U-100 [Novolog FlexPen U-100 Insulin] 100 unit/mL (3 mL) Insulin Pen 3 unit SUBCUT TID carvedilol 6.25 mg Tablet 6.25 mg PO BID tramadol 50 mg Tablet 50 mg PO HS rosuvastatin 40 mg Tablet 40 mg PO DAILY Toujeo SoloStar U-300 Insulin 300 unit/mL (1.5 mL) Insulin Pen 20 unit SUBCUT DAILY lisinopril 2.5 mg tablet 2.5 mg PO DAILY duloxetine 30 mg capsule,delayed release(DR/EC) 30 mg PO DAILY aspirin [Adult Low Dose Aspirin] 81 mg tablet,delayed release (DR/EC) 81 mg PO DAILY fluticasone propionate [Flonase Allergy Relief] 50 mcg/actuation spray,suspension 1 - 2 spray intranasal BID Qty: 16 3RF Rx Instructions: administer into each nostril Follow-up/Referrals: Skye,MD Clarence [Primary Care Provider] - Time of Disposition: 16:54
[2024-09-04 15:46] VITALS: BP 142/79; PULSE 82; RESP 18; TEMP 36.3; O2SAT 98
[2024-09-04 16:17] LABS: EDCOVIDSCREEN Negative (Negative)
== END 2024-09-04 17:15 | disposition home or self-care (01) ==
PROVIDERS: Emergency Provider Nurse Practitioner Family; PCP Hospitalist
DX: J18.9 Pneumonia, unspecified organism (principal); R05.9 Cough, unspecified; Z20.822 Contact with and (suspected) exposure to COVID-19; E11.9 Type 2 diabetes mellitus without complications; Z79.4 Long term (current) use of insulin; E78.00 Pure hypercholesterolemia, unspecified; I25.2 Old myocardial infarction; Z85.3 Personal history of malignant neoplasm of breast; Z90.11 Acquired absence of right breast and nipple; Z79.82 Long term (current) use of aspirin
CPT/HCPCS: 71046; 87426; 99213; G0463

== ENCOUNTER 2024-09-07 12:00 | Emergency (ER) | payer MEDICARE, SELFPAY ==
[2024-09-07 12:02] VITALS: BP 101/61; PULSE 80; RESP 14; TEMP 36.5; O2SAT 98
--- OUTSIDE RECORDS SUMMARY | 2024-09-07 12:02 | XMS_ITS | Referral Summary ---
Author Organization [facility] pauline Address [address] [place] [address] Care Team Providers Care Superintendent [employer]munition [employer] Name Role Phone Naun Georges MD Unavailable [phone] Di Demarco MD Unavailable [phone] Thomas Ordoñez MD Unavailable Joseph Mccullough MD Unavailable [phone] Faith Hamm NP Primary Care Provider [phone] Encounters Date Type Department Care Team Description 09/06/2024 Telephone [facility] Primary Care at [address] [place] [address] Faith Hamm NP 08/29/2024 11:59 PM CDT Anesthesia Event [facility] Operating Room [facility] [place] [address] Nadya Bradley NP 08/31/2024 Results Follow-Up [facility] Emergency Department [address] [place] [address] Willie Rodríguez PA Urine culture Urine, indwelling catheter 08/31/2024 Results Follow-Up [facility] Primary Care at [address] [place] [address] Faith Hamm NP ECG 12 lead, XR Chest PA Lateral 2 Views 08/31/2024 1:20 PM CDT - 08/31/2024 11:59 PM CDT Hospital Encounter [facility] [address] [place] [address] Pre-operative clearance Discharge Disposition: Discharge to home or self care 08/31/2024 1:18 PM CDT - 08/31/2024 11:59 PM CDT Hospital Encounter [facility] Cardiology [address] [place] [address] Pre-operative clearance Discharge Disposition: Discharge to home or self care 08/30/2024 Telephone [facility] Primary Care at [address] [place] [address] Faith Hamm NP Medical Question/Miscellaneous 08/30/2024 Telephone [facility] Home Care Services [address] [place] [address] [address] [place] [phone] Raysa Schmidt 08/30/2024 8:45 AM CDT Pre-Admission Testing [facility] Pre Anesthesia Testing [address] [place] [phone] Preoperative testing (Primary Dx) 08/30/2024 11:30 AM CDT Office Visit [facility] Primary Care at [address] [place] [address] Faith Hamm NP Pre-operative clearance (Primary Dx); Diabetic peripheral neuropathy (HCC); Cellulitis of right lower extremity; Type 2 diabetes mellitus with stage 3a chronic kidney disease, with long-term current use of insulin (HCC) 08/29/2024 10:03 PM CDT - 08/29/2024 11:20 PM CDT Emergency [facility] Emergency Department [address] [place] [address] Jacob Monae MD Problem with Barone catheter, initial encounter (Primary Dx); Acute cystitis with hematuria Discharge Disposition: Discharge to home or self care 08/25/2024 Telephone [facility] Primary Care at [place] [address] [address] Faith Hamm, SERG Additional Services Or Orders 08/17/2024 Telephone [facility] Medical [facility] Primary Care at [place] [phone] Faith Hamm NP Appointment Request 08/15/2024 Telephone [facility] Primary Care at [address] [address] Bertha Kelley MA 08/12/2024 4:35 PM CDT - 08/12/2024 11:59 PM CDT Hospital Encounter [facility] Emergency, Room R Discharge Disposition: Discharge to home or self care 08/04/2024 6:37 PM CDT - 08/12/2024 4:32 PM CDT Hospital Encounter [facility] Acute Medicine [address] [place] [address] Sara Hastings MD Petters, MD Little Perez Nazanin, MD Quaizar, Huzaifa, MD Cellulitis of right lower extremity (Primary Dx); Hyperglycemia; Hyponatremia; Degeneration of intervertebral disc of lumbar region, unspecified whether pain present; Diabetic peripheral neuropathy (HCC) Discharge Disposition: Discharge to SNF 08/09/2024 Results Follow-Up [facility] Primary Care at [address] [address] Faith Hamm, WOODEN BARREL MECHANIC Comprehensive metabolic panel, CBC with auto differential, Sepsis Lactate w/ Reflex, Additional followed-up results: 57 08/04/2024 2:00 PM CDT Orders Only [facility] [address] [place] [address] 07/29/2024 9:00 AM CDT Orders Only [facility] [address] [place] [id number] PAD (peripheral artery disease) (Primary Dx); Multiple open wounds of left lower extremity, initial encounter 07/20/2024 9:00 AM CDT Orders Only [facility] 1 [place] [address] 07/13/2024 8:00 AM CDT Orders Only [facility] 1 [place] [address] Cellulitis of right lower extremity; Venous stasis ulcer of right calf limited to breakdown of skin without varicose veins (HCC); Type 2 diabetes mellitus with stage 3a chronic kidney disease, with long-term current use of insulin (HCC) 07/12/2024 3:19 PM CDT - 07/12/2024 11:59 PM CDT Hospital Encounter [facility] [address] [facility] [place] [address] Thomas Washington MD Degeneration of intervertebral disc of lumbar region, unspecified whether pain present; Diabetic peripheral neuropathy (HCC) Discharge Disposition: Discharge to home or self care 07/06/2024 10:30 AM CDT Office Visit [facility] Primary Care at [address] [place] [phone] Faith Hamm NP Cellulitis of right lower extremity (Primary Dx); Dependent edema; Venous stasis ulcer of right calf limited to breakdown of skin without varicose veins (HCC); Type 2 diabetes mellitus with stage 3a chronic kidney disease, with long-term current use of insulin (HCC) 07/04/2024 Nurse Triage [facility] Primary Care at [address] [place] [phone] Faith Hamm NP 07/04/2024 10:15 AM CDT Office Visit [facility] Care at [place] [address] [place] [place] [address] Ronel Leung NP Leg swelling (Primary Dx); Dependent edema; Cellulitis of right lower extremity 06/20/2024 Telephone [facility] [address] [facility] [place] [address] Shameka Ray, SERG from Last 3 Months Allergies Active Allergy [...] hyperglycemia, with long-term current use of insulin ([facility]) One each 3 x daily for insulin [...] hyperglycemia, with long-term current use of insulin ([facility]) Use to inject 4 times daily as [...] hyperglycemia, with long-term current use of insulin ([facility]) TEST BLOOD SUGAR FOUR TIMES DAILY 300 [address] (PROTONIX) 40 mg EC tablet [...] hyperglycemia, with long-term current use of insulin ([facility]) INJECT 8-14 UNITS UNDER SKIN 3 TIMES [...] a day for 3 doses 025 2024 ciprofloxacin (CIPRO) 500 mg tablet Take 1 tablet (500 mg total) by mouth daily for 7 days 7 tablet 025 2024 Additional Information Patient not taking.Reason: not started yet, Reported on 08/30/2024 cetirizine (ZyrTEC) 10 mg tablet Take 1 [...] 01/01 Assessment & Plan (01/20/2024 8:47 PM 4TH GRADE MATH TEACHER): Annual Medicare wellness exam completed today. All [...] 04/09/2023 Assessment & Plan (04/09/2023 4:00 PM 4TH GRADE MATH TEACHER): Due to patient's current condition of odontoid fracture, and the fact that she has in a neck brace, she has increased risk for balance issues and falling. Patient would benefit from home physical therapy/occupational therapy. Both of these services were ordered during patient's hospital discharge planning. Dependent edema 04/07/2023 Assessment & Plan (07/06/2024 7:00 PM CDT): Assessment & Plan (04/08/2023 10:01 AM 4TH GRADE MATH TEACHER): Trial of low-dose furosemide. Encouraged use of compression stocking, elevated legs above heart when possible. Follow advise of PT/OT. H/O gastrointestinal hemorrhage 03/13/2023 Right adrenal mass 02/10/2023 Assessment & Plan (02/12/2023 1:47 PM 4TH GRADE MATH TEACHER): #Indeterminate hypoattenuating lesion within the left inferior [...] 2022 Assessment & Plan (04/08/2023 10:00 AM 4TH GRADE MATH TEACHER): Slowly improving, currently in a neck brace. Keep sidney appts with specialists. Assessment & Plan (02/16/2023 12:26 PM 4TH GRADE MATH TEACHER): # C2 type II odontoid fracture with epidural hematoma - NSGY Spine consult (Dr. Rodriguez) - CTA head/neck - no evidence of vascular injuries - Pain control - [place] at all times - Q4H NCs [...] the cervical spine -- Continue to wear [place] brace at all times Closed fracture of spinous process of thoracic v ertebra 02/09/2023 Assessment & Plan (02/09/2023 11:52 AM 4TH GRADE MATH TEACHER): T4 spinous process fx - PT/OT - Pain control At risk for inadequate oral intake 02/09/2023 Assessment & Plan (02/10/2023 1:33 PM 4TH GRADE MATH TEACHER): - Patient reports having poor intake due to throat pain/[place] J - Supplements ordered - 02/10 re-educated patient on goal of at least 1 Ensure per mealtime Other closed displaced odontoid fracture, initia l encounter 02/08/2023 Ductal carcinoma of breast, right 04/11/2021 Recurrent malignant neoplasm of right breast 11/2021 Overview (09/18/2022): Assessment: Right breast invasive ductal cancer stage I A ER positive MN positive Lumpectomy plus radiation followed by anastrozole for 5 years. Second right breast cancer, invasive ductal with lobular features-04/09/2021 Grade 1 ER positive MN positive HER2 0 Ki-67 15% Shows simple [...] 02/07/2021 Assessment & Plan (02/07/2021 10:19 AM 4TH GRADE MATH TEACHER): Trial of famotidine. Abnormal mammogram of right [...] PM CDT): Advise to keep following with electrical software engineer Assessment & Plan (08/31/2020 5:39 PM [...] meds. Assessment & Plan (02/07/2021 10:17 AM 4TH GRADE MATH TEACHER): At baseline, cont current Rx meds. Assessment & Plan (08/31/2020 5:38 PM CDT): At baseline, cont current mgmt. Assessment & Plan (01/20/2020 12:54 PM 4TH GRADE MATH TEACHER): Occasional wheezing. Patient home nebulizer machine broke according to the patient. New prescription sent for another home nebulizer. Uses directed. Assessment & Plan (10/20/2019 1:46 PM CDT): Clinically improved, continue current meds. DDD (degenerative disc disease), lumbar 05/10/19 Assessment & Plan (01/20/2020 12:57 PM 4TH GRADE MATH TEACHER): Encouraged [id number] exercises as tolerated. Managed by pain management. Chronic left hip pain 05/10/2019 shelter (current) use of opiate analgesic 01/30 History of coronary angioplasty with insertion o f stent 01/16/2019 Assessment & Plan (10/17/2023 7:59 PM CDT): Followed by cardiology Coronary artery disease of n ative artery of [place] heart with stable angina pectoris 06/22/2018 Assessment & Plan (02/17/2023 11:06 AM 4TH GRADE MATH TEACHER): # CAD # Hypertension - ASA 81 [...] medications. Assessment & Plan (01/20/2020 12:56 PM 4TH GRADE MATH TEACHER): He is asymptomatic. Continue current medications. Assessment [...] flonase. Assessment & Plan (02/07/2021 10:17 AM 4TH GRADE MATH TEACHER): Asymptomatic. Stable. Continue current prescription medications. Assessment & Plan (01/20/2020 12:54 PM 4TH GRADE MATH TEACHER): Stable. Cont. Current meds. Assessment & Plan [...] ENT Assessment & Plan (01/20/2020 12:55 PM 4TH GRADE MATH TEACHER): Asymptomatic. Managed by ENT. Assessment & Plan (01/16/2019 1:05 PM 4TH GRADE MATH TEACHER): Resolved. Assessment & Plan (08/05/2017 7:58 AM [...] understanding. Assessment & Plan (01/16/2019 1:04 PM 4TH GRADE MATH TEACHER): Stable, cont current meds. Assessment & Plan (06/01/2017 1:30 PM CDT): She needs diagnosis of asthma, she needs outpatient pulmonary function test and follow up with ada accommodation consultant. Also recommend ENT consultation due to sinus [...] 11/26/2016 Assessment & Plan (01/20/2020 12:57 PM 4TH GRADE MATH TEACHER): Stable. Managed by pain specialist. Assessment & Plan (10/20/2019 1:49 PM CDT): Managed by Pain specialists. Assessment & Plan (01/16/2019 1:05 PM 4TH GRADE MATH TEACHER): Pain controlled. Diabetic peripheral neuropathy 11/26/2016 Assessment & Plan (08/30/2024 8:14 PM CDT): Assessment & Plan (11/10/2023 10:44 AM CDT): Chronic problem. Reviewed foot care; needs to lotion daily. Aware to check feet nightly, not to go barefoot. Assessment & Plan (04/07/2023 11:25 AM 4TH GRADE MATH TEACHER): May be contributing to her balance issues, in addition to the fact that she recently broke her neck. Patient encouraged to be careful when trying to ambulate and ask for help when needed. Assessment & Plan (09/18/2022 7:31 PM CDT): Stable. Cont. Current prescription medications, gabapentin. Managed by Pain specialists. Assessment & Plan (01/20/2020 12:55 PM 4TH GRADE MATH TEACHER): Asymptomatic. Managed by Endocrinology. Assessment & Plan (01/16/2019 1:06 PM 4TH GRADE MATH TEACHER): Clinically improved. Assessment & Plan (06/22/2018 3:50 AM CDT): Patient follows with Dr. Fonseca and receives tramadol p.r.n.. Hold tramadol at this time as patient will be receiving Norcos. OA (osteoarthritis) 11/26/2016 Assessment & Plan (01/16/2019 1:05 PM 4TH GRADE MATH TEACHER): On tramadol. Polymyalgia rheumatica 11/26/2016 Assessment & Plan (09/18/2022 7:31 PM CDT): Stable. Cont. Current prescription medications, Tramadol, gabapentin, managed by Pain Specialist. Assessment & Plan (01/20/2020 12:57 PM 4TH GRADE MATH TEACHER): Stable. Managed by pain specialist. Assessment & Plan (10/20/2019 1:48 PM CDT): Managed by pain specialists. Assessment & Plan (01/16/2019 1:06 PM 4TH GRADE MATH TEACHER): On tramadol. Hyperlipidemia associated with type 2 diabetes macie rosales 05/21/2016 Overview (11/26/2016): Hyperlipidemia Assessment & Plan (11/10/2023 10:17 AM CDT): Chronic problem, at goal on current Rosuvastatin 40mg. Last lipid panel: 10/16/23 LDL=58, OZ=139. No changes at this time. Assessment & Plan (10/17/2023 8:00 PM CDT): Continue to limit fats in diet and take atorvastatin 80 mg daily Assessment & Plan (02/09/2023 11:41 AM 4TH GRADE MATH TEACHER): - Rosuvastatin Assessment & Plan (12/15/2022 11:35 AM CDT): On statin therapy Tolerating well Assessment & Plan (09/18/2022 7:23 PM CDT): LDL at goal of less than 100, continue current prescription medications, rosuvastatin. Assessment & Plan (05/05/2022 11:55 AM 4TH GRADE MATH TEACHER): Chronic problem, at goal on current Rosuvastatin 40mg. Last lipid panel: 09/09/21 LDL=63, BG=457. No changes at this time. Assessment & Plan (10/27/2021 5:57 PM CDT): LDL at goal of less than 100, continue current prescription medications. Assessment & Plan (09/09/2021 11:32 AM CDT): On statin therapy Tolerating well Assessment & Plan (03/25/2021 1:30 PM 4TH GRADE MATH TEACHER): On statin therapy Tolerating well Assessment & Plan (02/07/2021 10:17 AM 4TH GRADE MATH TEACHER): LDL at goal of < 70. Cont current Rx meds. Assessment & Plan (11/19/2020 3:49 PM CDT): On statin therapy Tolerating well Assessment & Plan (01/20/2020 12:53 PM 4TH GRADE MATH TEACHER): Elevated. Low-cholesterol diet recommended. Continue current medications. Managed by Endocrinology. Assessment & Plan (10/20/2019 1:46 PM CDT): Low chol diet recommended. Cont current mgmt. Assessment & Plan (09/12/2019 10:29 PM CDT): On statin therapy Tolerating well Assessment & Plan (09/04/2018 5:13 PM CDT): On statin therapy Tolerating well Assessment & Plan (06/22/2018 3:47 AM CDT): Continue statin Assessment & Plan (04/27/2018 7:20 AM 4TH GRADE MATH TEACHER): Lipid abnormalities are worsening. Nutritional counseling was provided. and Pharmacotherapy as ordered. Lipids will be reassessed in 6 months. Assessment & Plan (02/07/2018 11:18 PM 4TH GRADE MATH TEACHER): Pt on statin therapy Tolerating well Assessment & Plan (10/10/2017 10:42 PM CDT): Lipid abnormalities are unchanged. Nutritional counseling was provided. and Pharmacotherapy as ordered. Lipids will be reassessed in 6 months. Assessment & Plan (03/21/2017 1:22 AM 4TH GRADE MATH TEACHER): Currently on aspirin and statin will continue [...] Future Assessment & Plan (02/09/2024 8:32 PM 4TH GRADE MATH TEACHER): eGFR 47 on 09/17/2023. Currently on lisinopril [...] exam Assessment & Plan (02/17/2023 3:04 PM 4TH GRADE MATH TEACHER): - Home regimen: Novolog slide, insulin glargine [...] daughter to come to examination room from [facility]. She was not aware of which medications her mother was on either. Assessment & Plan (05/05/2022 11:56 AM 4TH GRADE MATH TEACHER): Chronic problem, near goal. A1c slowly trending [...] months Assessment & Plan (03/25/2021 1:46 PM 4TH GRADE MATH TEACHER): Chronic, uncontrolled, improving slowly A1c today 8.7% [...] meds. Assessment & Plan (01/20/2020 12:53 PM 4TH GRADE MATH TEACHER): Uncontrolled. Managed by endocrinology. Patient encouraged to [...] months. Assessment & Plan (01/16/2019 1:03 PM 4TH GRADE MATH TEACHER): Managed by endocrinology. Assessment & Plan (09/04/2018 [...] now , they plan to go to [facility] Reminded to bring in blood sugar diary at next visit. Dietary recommendations for ADA diet. Regular aerobic exercise. Discussed ways to avoid symptomatic hypoglycemia. Discussed sick day management. Discussed foot care. Reminded to get yearly retinal exam. Diabetes will be reassessed in 2 weeks . Assessment & Plan (04/27/2018 7:20 AM 4TH GRADE MATH TEACHER): Diabetes is improving with treatment. - HbA1c [...] weeks. Assessment & Plan (02/07/2018 11:19 PM 4TH GRADE MATH TEACHER): Diabetes is worsening. Recent HbA1c 12/2017 - [...] month. Assessment & Plan (01/07/2018 5:29 PM 4TH GRADE MATH TEACHER): Diabetes is unchanged. Discussed foot care. Reminded to get yearly retinal exam. Keep sidney appt with new Window Installation Subcontractor. Changed Levemir to Toujeo in an attempt to lower Rx costs for patient. Instructed her to take the forms for Levemir with her to her new Window Installation Subcontractor it Toujeo was not more affordable. Assessment & Plan (10/10/2017 10:43 PM CDT): Diabetes is unchanged. Continue current treatment regimen. Reminded to bring in blood sugar diary at next visit. Dietary recommendations for ADA diet. Diabetes will be reassessed in 6 months. Assessment & Plan (03/21/2017 1:22 AM 4TH GRADE MATH TEACHER): Poorly controlled type 2 diabetes insulin dependent [...] home. Assessment & Plan (05/05/2022 11:42 AM 4TH GRADE MATH TEACHER): Chronic problem, well controlled on current carvedilol [...] appointment. Assessment & Plan (03/25/2021 1:30 PM 4TH GRADE MATH TEACHER): Hypertension is improving with treatment. Continue current treatment regimen. Dietary sodium restriction. Regular aerobic exercise. Blood pressure will be reassessed at the next regular appointment. Assessment & Plan (02/07/2021 10:15 AM 4TH GRADE MATH TEACHER): Clinically improved, continue current prescription medications. Assessment & Plan (11/19/2020 3:49 PM CDT): Hypertension is improving with treatment. Continue current treatment regimen. Dietary sodium restriction. Regular aerobic exercise. Blood pressure will be reassessed at the next regular appointment. Assessment & Plan (08/31/2020 5:37 PM CDT): BP remains within goal, keep sidney appt with electrical software engineer. Cont current mgmt. Assessment & Plan [...] monitor. Assessment & Plan (04/27/2018 7:20 AM 4TH GRADE MATH TEACHER): Hypertension is improving with treatment. Continue current treatment regimen. Dietary sodium restriction. Regular aerobic exercise. Blood pressure will be reassessed at the next regular appointment. Assessment & Plan (02/07/2018 11:18 PM 4TH GRADE MATH TEACHER): Hypertension is chronic, well controlled for pt [...] appointment. Assessment & Plan (03/21/2017 1:23 AM 4TH GRADE MATH TEACHER): Hypertension fairly controlled Will continue with home lisinopril Chronic diastolic congestive heart failure Assessment & Plan (09/18/2022 7:36 PM CDT): Patient and patient's daughter deny this condition. Reviewed most recent ECHO, results state normal left ventricular diastolic function. . Asked patient to re-establish care with cardiology. Patient is lost to follow up since her podiatric surgeon left town. Patient currently asymptomatic. Assessment & Plan (10/20/2019 1:48 PM CDT): At baseline, managed by cardiology. Nocturnal hypoxemia Esophageal dysmotilities Resolved Problems Problem Noted Date Diagnosed Date Resolved Date Discharge planning issues 02/09/2023 Assessment & Plan (02/17/2023 2:44 PM 4TH GRADE MATH TEACHER): - 02/09 pending PT/OT, c spine xrays, [...] 11/10/2023 Assessment & Plan (05/05/2022 11:08 AM 4TH GRADE MATH TEACHER): Discussed healthy diet and importance of regular physical activity (20- 30min/day, 150min/wk). 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 Assessment & Plan (03/25/2021 1:53 PM 4TH GRADE MATH TEACHER): Advised to follow up with Detective Chief Pt has appt on apr 02 2021 Gave instructions for local wound care Acute hypoxemic respiratory failure 04/27/2019 10/20/2019 Acute lower respiratory tract infection 04/27/2019 07/01/2019 BMI 27.0-27.9,adult 01/14/2019 04/21/19 23 Assessment & Plan (11/18/2019 1:40 PM CDT): Healthy, low carbohydrate lifestyle and exercise Dizziness 01/14/2019 10/20/2019 Assessment & Plan (01/16/2019 1:03 PM 4TH GRADE MATH TEACHER): May be secondary to anti-hypertensives. Decrease lisinopril [...] tolerated tramadol and has had prescriptions for [place] as in the past. Order patient [place] as p.r.n.. Patient recently had a STEMI in March and is currently on aspirin and Brilinta will have to avoid NSAIDs for now. Assessment & Plan (06/21/2018 12:56 PM CDT): Acute, Worsening, Pt needs I and D and IV antibiotics Pt going to ER now ( [facility] ) Acute pain of right knee 05/04/2018 Assessment & Plan (05/04/2018 3:09 PM 4TH GRADE MATH TEACHER): Will obtain x-ray. Taking tylenol for pain. Asking for something stronger. Referral to Dr. Bunch, [facility] per pt request. ST elevation myocardial infa [...] 10/09/2017 Assessment & Plan (03/21/2017 1:26 AM 4TH GRADE MATH TEACHER): The patient was started on the Rocephin [...] materials from doctor or pharmacy Never 03/11/2023 C Utilities Answer Date Recorded In the past 12 months has th e [employer], gas, oil, or water [employer] threatened to shut off services in your [...] How often do you attend chur or shinto services? 1 to 4 times per year 08/05/2024 Do you belong to any clubs o r organizations such as voodoo groups, unions, fraternal or athletic groups, or [...] place to sleep or slept in a long-term (including now)? No 04/13/2023 PHQ-9 Answer Date [...] any time in the past 12 m [facility], were you homeless or living in a long-term (including now)? No 08/05/2024 Personal Safety Answer [...] on file Legal Sex Female 5:37 PM 4TH GRADE MATH TEACHER Gender Identity Not on file Sexual Orientation [...] 08/30/2024 11:38 AM CDT Plan of Treatment Not on file Goals Goal Patient Goal Type Associated Problems Recent Progress Patient-Stated? Author [facility] Improving(03/2022 12:53 PM 4TH GRADE MATH TEACHER) Betty Aiken RN Note: Patient will establish a comfort-function goal and identify the pain level that will allow the patient to perform desired activities and achieve an acceptable quality of life. Medical Devices Implanted Type Area Major General Device Identifier Shelf Expiration Date Model / Serial / Lot Bard Peripheral Vascular [id number] Ultraclip Bard 17ga 10cm 2 Trigger Permanent Ultrasound - [id number] - [id number] Implanted:Qty: 1 on 04/09/2021 by Thomas Davila MD at [facility] Breast Right: Breast [employer] 09/27/2023 [id number] / [id number] / [employer] [id number] Xience Bree 3mm 18mm Rapid Exchange System Coronary Stent - [id number] Implanted:Qty: 1 on 03/12/2018 by Jacob Mary MD at [facility] 12/06/2018 [id number] Procedures Procedure Name Priority Date/Time Associated Diagnosis [...] DIABETES EYE EXAM Routine 04/02/2023 9:12 AM 4TH GRADE M[employer]ER ALBUMIN CREATININE RATIO, URINE Routine 09/18/2022 12:53 [...] 10:00 PM - Electronically signed by Glynn FELDER Report ID: [id number] Reading Location: [id number] Procedure Note Glynn Mosley MD - 09/01/2024 [...] 10:00 PM - Electronically signed by Glynn FELDER: BRADFORD Report ID: [id number] Reading Location: [id number] us Faith Hamm [employer] IMG XR PROCEDURES Final Resul t * ECG 12 lead (08/31/2024 1:38 PM CDT) 08/31/2024 1:28 PM CDT Narrative [facility] - 08/31/2024 2:17 PM CDT Vent Rate: 70 bpm RR Interval: 847 msec MN Interval: 202 msec QRS Duration: 135 msec QT Interval: 421 msec QTC Interval: 442 msec P-R-T [place]: 36 - 95 - -27 degrees IMPRESSION: [...] present Electronically Signed By: Isaias Shafer MD us Faith Hamm NP ECG ORDERABLES Final Result [facility] * eGFR (08/30/2024 10:30 AM CDT) eGFR [...] CDT 08/30/2024 10:33 AM CDT us Nadya Traviskary Bradley NP LAB BLOOD ORDERABLES Fi nal Result [facility] [address] Department [place] [address] * (ABNORMAL) Differential, auto (08/30/2024 10:30 AM CDT) Neutrophil abs 5.50 1.50 - 6.50 K/cumm Imm gran abs 0.03 0.00 - 0.10 K/cumm [facility] Lymphocyte abs 2.84 0.80 - 3.30 K/cumm [facility] Monocyte abs 0.88(H) 0.20 - 0.80 K/cumm [facility] Eosinophil abs 0.62(H) 0.00 - 0.50 K/cumm [facility] Basophil abs 0.04 0.00 - 0.10 K/cumm [facility] Neutrophil pct 55.4 % [facility] Comment: Interpretive Data Percent cell count reference ranges are not reported, since discordance with absolute values may lead to misinterpretation of CBC data. Current Interpretive Data was last revised on 2017. Imm gran pct 0.3 % [facility] Comment: Interpretive Data Percent cell count reference ranges are not reported, since discordance with absolute values may lead to misinterpretation of CBC data. Current Interpretive Data was last revised on 2017. Lymphocyte pct 28.7 % [facility] Comment: Interpretive Data Percent cell count reference ranges are not reported, since discordance with absolute values may lead to misinterpretation of CBC data. Current Interpretive Data was last revised on 2017. Monocyte pct 8.9 % [facility] Comment: Interpretive Data Percent cell count reference ranges are not reported, since discordance with absolute values may lead to misinterpretation of CBC data. Current Interpretive Data was last revised on 2017. Eosinophil pct 6.3 % [facility] Comment: Interpretive Data Percent cell count reference ranges are not reported, since discordance with absolute values may lead to misinterpretation of CBC data. Current Interpretive Data was last revised on 2017. Basophil pct 0.4 % [facility] Comment: Interpretive Data Percent cell count reference ranges are not reported, since discordance with absolute values may lead to misinterpretation of CBC data. Current Interpretive Data was last revised on 2017. Blood 08/30/2024 10:3 0 AM CDT 08/30/2024 10:34 AM CDT Nadya Bradley [employer] LAB BLOOD ORDERABLES Fi nal Result Performing Organization Address City/[facility]/ZIP Co de Phone Number [facility] [address] [place] [place] [address] * (ABNORMAL) CBC with auto differential (08/30/2024 10:30 AM CDT) WBC 9.91(H) 3.80 - 9.90 K/cumm Hgb 11.4(L) 11.9 - 15.5 g/dL [facility] Hct 37.3 35.6 - 45.5 % [facility] Plt 223 150 - 400 K/cumm [facility] MPV 10.8 9.1 - 12.3 fL [facility] RBC 4.05 3.90 - 5.20 M/cumm [facility] MCV 92.1 81.3 - 96.4 fL [facility] MCH 28.1 27.1 - 33.3 pg [facility] MCHC 30.6(L) 32.3 - 35.7 g/dL [facility] RDW CV 14.2 11.1 - 14.9 % [facility] RDW SD 48.1 35.7 - 48.1 fL [facility] NRBC abs 0.00 0.00 - 0.01 K/cumm [facility] Blood 08/30/2024 10:3 0 AM CDT 08/30/2024 10:34 AM CDT Nadya Bradley NP LAB BLOOD ORDERABLES Fi nal Result Performing Organization Address City/[facility]/ZIP Co de Phone Number [facility] [address] [place] [address] * (ABNORMAL) Hemoglobin A1c (08/30/2024 10:30 AM CDT) Hgb A1C 10.3(H) 4.0 - 5.6 % Estimated Average Glucose 249 mg/dL [facility] Comment: The ADA recommends reporting an estimated Average Glucose (eAG) with all Hemoglobin A1c results using the equation derived from a study of 507 normal and diabetic adults. Minority populations were underrepresented and children were not included. (Diabetes Care 31:2494-9802, 2008). The eAG is not equivalent to a fasting glucose. Blood 08/30/2024 10:3 0 AM CDT 08/30/2024 10:34 AM CDT Nadya Bradley NP LAB BLOOD ORDERABLES Fi nal Result [facility] [address] Department [place] [address] * (ABNORMAL) Basic metabolic panel (08/30/2024 10:30 AM CDT) Pathologist [facility] Sodium 141 135 - 145 mmol/L Potassium, pl 3.8 3.3 - 4.9 mmol/L [facility] Chloride 108 97 - 110 mmol/L [facility] CO2 21(L) 22 - 32 mmol/L [facility] Anion gap 12 2 - 15 mmol/L [facility] BUN 29(H) 6 - 25 mg/dL [facility] Creatinine 0.92 0.60 - 1.10 mg/dL [facility] Glucose 137 70 - 199 mg/dL [facility] Comment: Interpretive Data Fasting glucose >/= [...] 2022. Calcium 9.1 8.5 - 10.3 mg/dL [facility] Blood 08/30/2024 10:3 0 AM CDT 08/30/2024 10:33 AM CDT us Nadya Bradley [employer] LAB BLOOD ORDERABLES Fi nal Result [facility] [address] Department [place] [address] * (ABNORMAL) Urinalysis reflex to microscopic and [...] tendency for uric acid stone formation. Source: [facility] Current Interpretive Data was last revised on [...] RDERABLES Final Result [facility] ([place]) 1 [facility] Department [place] [address] * (ABNORMAL) Urinalysis, microscopic only (08/29/2024 10:22 PM CDT) WBC, ur >50(A) 0 - 5 /HPF RBC, ur 6-10(A) 0 - 2 /HPF [facility] ([place]) Epithelial cells, squamous, ur 1-5 0 - 5 /HPF [facility] ([place]) Bacteria, ur 1+(A) [facility] ([place]) Mucous, ur Present(A) [facility] A ([place]) Culture Reflex Comment Reflex to urine culture will be performed. [facility] ([place]) Urine, indwelling catheter 08/29/2024 10:22 PM CDT 08/29/2024 10:25 PM CDT Jacob Monae MD LAB URINE ORDERABLES Final R esult [facility] ([place]) 1 [facility] Department [place] [address] * (ABNORMAL) Urine culture Urine, indwelling catheter (08/29/2024 10:22 PM CDT) Report Final Report: Greater than or equal to 100,000 colonies/mL of Enterobacter cloacae complex Greater than or equal to 100,000 colonies/mL of Citrobacter koseri (.) Comment:Testing performed by : [facility], 1 [facility] [place]., [address] Organism ENTEROBACTER CLOACAE COMPLEX [facility] ([place]) Organism CITROBACTER KOSERI [facility] ([place]) Urine, indwelling catheter 08/29/2024 10:22 PM CDT 08/30/2024 1:36 AM CDT Narrative [facility] ([place]) - 09/01/2024 12:28 PM CDT Urine culture reflexed based upon urinalysis results. Testing performed by [facility] ([phone]) Organism Antibiotic Method Susceptibility Enterobacter cloacae complex [...] MICROBIOLOGY - GENERAL O RDERABLES Final Result [facility] ([place]) 1 [facility] [place] [address] * POCT glucose (08/12/2024 11:56 AM CDT) [facility] Glucose, POC 100 70 - 199 mg/dL Blood 08/12/2024 11:5 6 AM CDT 08/12/2024 11:56 AM CDT Marleen Robles MD LAB POCT ORDERABLES - DEVICE Final Result [facility] ([place]) 1 [facility] [place] [address] * POCT glucose (08/12/2024 8:00 AM CDT) Glucose, POC 88 70 - 199 mg/dL Blood 08/12/2024 8:00 AM CDT 08/12/2024 8:00 AM CDT us Marleen Robles MD LAB POCT ORDERABLES - DEVICE Final Result [facility] ([place]) [address] [place] [address] [place] [address] * (ABNORMAL) eGFR (08/12/2024 3:30 AM CDT) eGFR 34(L) >=60 mL/min/1. 73 m2 Comment: [...] of Race in Diagnosing Kidney Disease, JASN 202). The CKD-EPI equation should not be used for patients with unstable renal function and has not been validated in children and those over 70. Current interpretive data was last reviewed 2020. Blood 08/12/2024 3:30 AM CDT 08/12/2024 5:17 AM CDT us Juan Sorto MD LAB BLOOD ORDERABLES Fi nal Result [facility] ([place]) 1 [facility] [place] [address] * (ABNORMAL) Differential, auto (08/12/2024 3:30 AM [...] Fi nal Result [facility] ([place]) 1 [facility] [place] [address] * (ABNORMAL) CBC with auto differential (08/12/2024 [...] 0.00 0.00 - 0.01 K/cumm [facility] ([place]) Blood 08/12/2024 3:30 AM CDT 08/12/2024 5:17 AM CDT Juan Sorto MD LAB BLOOD ORDERABLES Fi nal Result [facility] ([place]) 1 [facility] [place] [address] * (ABNORMAL) Comprehensive metabolic panel (08/12/2024 3:30 AM CDT) Sodium 136 135 - 145 mmol/L Potassium, pl 5.4(H) 3.3 - 4.9 mmol/L [facility] ([place]) Chloride 99 97 - 110 mmol/L [facility] ([place]) CO2 25 22 - 32 mmol/L [facility] ([place]) Anion gap 12 2 - 15 mmol/L [facility] ([place]) BUN 55(H) 6 - 25 mg/dL [facility] ([place]) Creatinine 1.48(H) 0.60 - 1.10 mg/dL [facility] ([place]) Glucose 193 70 - 199 mg/dL [facility] ([place]) [...] Fi nal Result [facility] ([place]) 1 [facility] [place] [address] * (ABNORMAL) POCT glucose (08/12/2024 2:43 AM CDT) Glucose, POC 224(H) 70 - 199 mg/dL Blood 08/12/2024 2:43 AM CDT 08/12/2024 2:43 AM CDT Marleen Robles MD LAB POCT ORDERABLES - DEVICE Final Result [facility] ([place]) 1 [facility] [place] [address] * (ABNORMAL) POCT glucose (08/11/2024 8:28 PM CDT) Glucose, POC 201(H) 70 - 199 mg/dL Blood 08/11/2024 8:28 PM CDT 08/11/2024 8:28 PM CDT Marleen Robles MD LAB POCT ORDERABLES - DEVICE Final Result Performing Organization Address City/[facility]/ZIP Co de Phone Number [facility] ([place]) 1 [facility] [place] [address] * POCT glucose (08/11/2024 4:43 PM CDT) Glucose, POC 123 70 - 199 mg/dL Blood 08/11/2024 4:43 PM CDT 08/11/2024 4:43 PM CDT us Marleen Robles MD LAB POCT ORDERABLES - DEVICE Final Result [facility] ([place]) 1 [facility] [place] [address] * POCT glucose (08/11/2024 11:19 AM CDT) Glucose, POC 144 70 - 199 mg/dL Blood 08/11/2024 11:1 9 AM CDT 08/11/2024 11:19 AM CDT us Marleen Robles MD LAB POCT ORDERABLES - DEVICE Final Result Performing Organization Address City/[facility]/ZIP Co de Phone Number [facility] ([place]) [address] [place] [address] [place] [address] * POCT glucose (08/11/2024 7:55 AM CDT) Glucose, POC 120 70 - 199 mg/dL Blood 08/11/2024 7:55 AM CDT 08/11/2024 7:55 AM CDT Marleen Robles MD LAB POCT ORDERABLES - DEVICE Final Result Performing Organization Address City/[facility] Co de Phone Number [facility] ([place]) 1 [facility] [place] [address] * (ABNORMAL) eGFR (08/11/2024 3:58 AM CDT) [facility] eGFR 42(L) >=60 mL/min/1. 73 m2 Comment: [...] MD LAB BLOOD ORDERABLES Fi nal Result [facility] ([place]) 1 [facility] Department [place] [address] * (ABNORMAL) Differential, auto (08/11/2024 3:58 AM CDT) Neutrophil abs 5.94 1.50 - 6.50 K/cumm Imm gran abs 0.14(H) 0.00 - 0.10 K/cumm [facility] ([place]) Lymphocyte abs 3.99(H) 0.80 - 3.30 K/cumm [facility] ([place]) Monocyte abs 0.79 0.20 - 0.80 K/cumm [facility] ([place]) Eosinophil abs 0.41 0.00 - 0.50 K/cumm [facility] ([place]) Basophil abs 0.06 0.00 - 0.10 K/cumm [facility] ([place]) Neutrophil pct 52.5 % [facility] ([place]) Comment: Interpretive Data Percent cell count reference [...] Fi nal Result [facility] ([place]) 1 [facility] Department [place] [address] * (ABNORMAL) CBC with auto differential (08/11/2024 [...] Fi nal Result [facility] ([place]) 1 [facility] Department [place] [address] * (ABNORMAL) Comprehensive metabolic panel (08/11/2024 3:58 [...] ([place]) AST 37 10 - 45 Units/L [facility] ([place]) Blood 08/11/2024 3:58 AM CDT 08/11/2024 4:42 AM CDT Juan Sorto MD LAB BLOOD ORDERABLES Fi nal Result [facility] ([place]) [address] [place] [address] [place] [address] * POCT glucose (08/11/2024 3:01 AM CDT) Glucose, POC 155 70 - 199 mg/dL Blood 08/11/2024 3:01 AM CDT 08/11/2024 3:01 AM CDT Marleen Robles MD LAB POCT ORDERABLES - DEVICE Final Result Performing Organization Address City/[facility]/ZIP Co de Phone Number [facility] ([place]) 1 [facility] [place] [address] * POCT glucose (08/10/2024 7:31 PM CDT) Glucose, POC 136 70 - 199 mg/dL Blood 08/10/2024 7:31 PM CDT 08/10/2024 7:31 PM CDT Marleen Robles MD LAB POCT ORDERABLES - DEVICE Final Result [facility] ([place]) 1 [facility] [place] [address] * POCT glucose (08/10/2024 3:55 PM CDT) Glucose, POC 121 70 - 199 mg/dL Blood 08/10/2024 3:55 PM CDT 08/10/2024 3:55 PM CDT us Marleen Robles MD LAB POCT ORDERABLES - DEVICE Final Result Performing Organization Address City/[facility]/ZIP Co de Phone Number [facility] ([place]) 1 [facility] [place] [address] * POCT glucose (08/10/2024 11:57 AM CDT) [facility] Glucose, POC 180 70 - 199 mg/dL Blood 08/10/2024 11:5 7 AM CDT 08/10/2024 11:57 AM CDT us Marleen Robles MD LAB POCT ORDERABLES - DEVICE Final Result Performing Organization Address City/[facility]/ZIP Co de Phone Number [facility] ([place]) 1 [facility] [place] [address] * POCT glucose (08/10/2024 7:23 AM CDT) [facility] Glucose, POC 161 70 - 199 mg/dL Blood 08/10/2024 7:23 AM CDT 08/10/2024 7:23 AM CDT us Marleen Robles MD LAB POCT ORDERABLES - DEVICE Final Result Performing Organization Address City/[facility] Co de Phone Number [facility] ([place]) 1 [facility] [place] [address] * (ABNORMAL) eGFR (08/10/2024 3:05 AM CDT) [facility] eGFR 51(L) >=60 mL/min/1. 73 m2 Comment: [...] BLOOD ORDERABLES Fi nal Result [facility] ([place]) 1 [facility] Department [place] [address] * (ABNORMAL) Differential, auto (08/10/2024 3:05 AM [...] revised on 2017. Monocyte pct 6.6 % [facility] ([place]) Comment: Interpretive Data [...] revised on 2017. Basophil pct 0.5 % [facility] ([place]) Comment: Interpretive Data Percent cell count reference ranges are not reported, since discordance with absolute values may lead to misinterpretation of CBC data. Current Interpretive Data was last revised on 2017. Blood 08/10/2024 3:05 AM CDT 08/10/2024 3:36 AM CDT us Juan Sorto MD LAB BLOOD ORDERABLES Fi nal Result [facility] ([place]) 1 [facility] Department [place] [address] * (ABNORMAL) CBC with auto differential (08/10/2024 3:05 AM CDT) WBC 11.70(H) 3.80 - 9.90 K/cumm Hgb 10.7(L) 11.9 - 15.5 g/dL [facility] ([place]) Hct 33.9(L) 35.6 - 45.5 % [facility] ([place]) Plt 317 150 - 400 K/cumm [facility] ([place]) MPV 9.6 9.1 - 12.3 fL [facility] ([place]) RBC 3.81(L) 3.90 - 5.20 M/cumm [facility] ([place]) MCV 89.0 81.3 - 96.4 fL [facility] ([place]) MCH 28.1 27.1 - 33.3 pg [facility] MCHC 31.6(L) 32.3 - 35.7 g/dL [facility] ([place]) RDW CV 14.2 11.1 - 14.9 % [facility] ([place]) RDW SD 45.7 35.7 - 48.1 fL [facility] ([place]) NRBC abs 0.00 0.00 - 0.01 K/cumm [facility] ([place]) Blood 08/10/2024 3:05 AM CDT 08/10/2024 3:36 AM CDT us Juan Sorto MD LAB BLOOD ORDERABLES nal Result [facility] ([place]) 1 [facility] Department [place] [address] * (ABNORMAL) Comprehensive metabolic panel (08/10/2024 3:05 AM CDT) Sodium 137 135 - 145 mmol/L Potassium, pl 5.0(H) 3.3 - 4.9 mmol/L [facility] ([place]) Chloride 101 97 - 110 mmol/L [facility] ([place]) CO2 25 22 - 32 mmol/L [facility] ([place]) Anion gap 11 2 - 15 mmol/L [facility] BUN 39(H) 6 - 25 mg/dL [facility] ([place]) Creatinine 1.04 0.60 - 1.10 mg/dL [facility] Glucose 94 70 - 199 mg/dL [facility] ([place]) Comment: Interpretive Data Fasting [...] LAB BLOOD ORDERABLES Fi nal Result [facility] ([place]) 1 [facility] [employer] [place] [address] * POCT glucose (08/10/2024 3:00 AM CDT) Glucose, POC 106 70 - 199 mg/dL Blood 08/10/2024 3:00 AM CDT 08/10/2024 3:00 AM CDT Cony Fitch MD LAB POCT ORDERABLES - DEV ICE Final Result [facility] ([place]) 1 [facility] [employer] [place] [place] [address] * (ABNORMAL) POCT glucose (08/09/2024 9:21 PM CDT) Glucose, POC 232(H) 70 - 199 mg/dL Blood 08/09/2024 9:21 PM CDT 08/09/2024 9:21 PM CDT Cony Fitch MD LAB POCT ORDERABLES - DEV ICE Final Result Performing Organization Address City/[facility]/ZIP Co de Phone Number [facility] ([place]) 1 [facility] [place] [address] * (ABNORMAL) POCT glucose (08/09/2024 4:23 PM CDT) Glucose, POC 200(H) 70 - 199 mg/dL Blood 08/09/2024 4:23 PM CDT 08/09/2024 4:23 PM CDT Cony Fitch MD LAB POCT ORDERABLES - DEV ICE Final Result Performing Organization Address [facility] Co de Phone Number [facility] ([place]) 1 [facility] [place] [address] * POCT glucose (08/09/2024 11:16 AM CDT) Glucose, POC 113 70 - 199 mg/dL Blood 08/09/2024 11:1 6 AM CDT 08/09/2024 11:16 AM CDT Cony Fitch MD LAB POCT ORDERABLES - DEV ICE Final Result Performing Organization Address City/[facility] Co de Phone Number [facility] ([place]) 1 [facility] [place] [address] * POCT glucose (08/09/2024 7:21 AM CDT) Glucose, POC 164 70 - 199 mg/dL Blood 08/09/2024 7:21 AM CDT 08/09/2024 7:21 AM CDT Cony Fitch MD LAB POCT ORDERABLES - DEV ICE Final Result [facility] ([place]) 1 [facility] Department [place] [address] * (ABNORMAL) eGFR (08/09/2024 3:40 AM CDT) [...] BLOOD ORDERABLES Fi nal Result [facility] ([place]) 1 [facility] [place] [address] * (ABNORMAL) Differential, auto (08/09/2024 3:40 AM CDT) Neutrophil abs 8.20(H) 1.50 - 6.50 K/cumm Imm gran abs 0.19(H) 0.00 - 0.10 K/cumm [facility] ([place]) Lymphocyte abs 3.15 0.80 - 3.30 [...] 3:40 AM CDT 08/09/2024 4:15 AM CDT Juan Sorto MD LAB BLOOD ORDERABLES Fi nal Result [facility] ([place]) 1 [facility] Department [place] [address] * (ABNORMAL) CBC with auto differential (08/09/2024 [...] Fi nal Result [facility] ([place]) 1 [facility] [place] [address] * (ABNORMAL) Comprehensive metabolic panel (08/09/2024 3:40 AM CDT) Pathologist [facility] Sodium 134(L) 135 - 145 mmol/L Potassium, [...] Fi nal Result [facility] ([place]) 1 [facility] Department [place] [address] * (ABNORMAL) POCT glucose (08/09/2024 2:44 AM CDT) Glucose, POC 202(H) 70 - 199 mg/dL Blood 08/09/2024 2:44 AM CDT 08/09/2024 2:44 AM CDT Cony Fitch MD LAB POCT ORDERABLES - DEV ICE Final Result Performing Organization Address City/[facility]/ZIP Co de Phone Number [facility] ([place]) 1 [facility] [place] [address] * (ABNORMAL) POCT glucose (08/08/2024 7:50 PM CDT) Glucose, POC 324(H) 70 - 199 mg/dL Blood 08/08/2024 7:50 PM CDT 08/08/2024 7:50 PM CDT Cony Fitch MD LAB POCT ORDERABLES - DEV ICE Final Result Performing Organization Address City/[facility] Co de Phone Number [facility] ([place]) 1 [facility] [place] [address] * (ABNORMAL) POCT glucose (08/08/2024 4:23 PM CDT) Glucose, POC 249(H) 70 - 199 mg/dL Blood 08/08/2024 4:23 PM CDT 08/08/2024 4:23 PM CDT Cony Fitch MD LAB POCT ORDERABLES - DEV ICE Final Result [facility] ([place]) 1 [facility] [place] [address] * (ABNORMAL) POCT glucose (08/08/2024 11:18 AM CDT) Glucose, POC 228(H) 70 - 199 mg/dL Blood 08/08/2024 11:1 8 AM CDT 08/08/2024 11:18 AM CDT Cony Fitch MD LAB POCT ORDERABLES - DEV ICE Final Result [facility]) 1 [facility] [place] [address] * POCT glucose (08/08/2024 7:24 AM CDT) Glucose, POC 157 70 - 199 mg/dL Blood 08/08/2024 7:24 AM CDT 08/08/2024 7:24 AM CDT Cony Fitch MD LAB POCT ORDERABLES - DEV ICE Final Result Performing Organization Address City/[facility] Co de Phone Number [facility] ([place]) 1 [facility] [place] [address] * (ABNORMAL) eGFR (08/08/2024 3:58 AM CDT) [...] BLOOD ORDERABLES Fi nal Result [facility] ([place]) 1 [facility] [place] [address] * (ABNORMAL) Differential, auto (08/08/2024 3:58 AM [...] revised on 2017. Monocyte pct 8.2 % [facility] (ANUPAMA) Comment: Interpretive Data [...] revised on 2017. Basophil pct 0.6 % [facility] (ANUPAMA) Comment: Interpretive Data Percent cell count reference ranges are not reported, since discordance with absolute values may lead to misinterpretation of CBC data. Current Interpretive Data was last revised on 2017. Blood 08/08/2024 3:58 AM CDT 08/08/2024 4:11 AM CDT us Juan Sorto MD LAB BLOOD ORDERABLES nal Result [facility] (ANUPAMA) 1 [facility] Department [place] [address] * (ABNORMAL) CBC with auto differential (08/08/2024 3:58 AM CDT) WBC 11.57(H) 3.80 - 9.90 K/cumm Hgb 10.6(L) 11.9 - 15.5 g/dL [facility] ([place]UP[place]) Hct 33.5(L) 35.6 - 45.5 % [...] Fi nal Result [facility] (ANUPAMA) 1 [facility] Department [place] [address] * (ABNORMAL) Comprehensive metabolic panel (08/08/2024 3:58 [...] (ANUPAMA) Glucose 174 70 - 199 mg/dL [facility] (ANUPAMA) [...] (ANUPAMA) ALT 21 7 - 45 Units/L [facility] (ANUPAMA) AST 31 10 - 45 Units/L [facility] (ANUPAMA) Blood 08/08/2024 3:58 AM CDT 08/08/2024 4:11 AM CDT us Juan Sorto MD LAB BLOOD ORDERABLES Fi nal Result RUSTY TALBOT (TUCKER) 1 [facility] [place] [address] * POCT glucose (08/08/2024 1:52 AM CDT) Glucose, POC 190 70 - 199 mg/dL Blood 08/08/2024 1:52 AM CDT 08/08/2024 1:52 AM CDT us Cony Fitch MD LAB POCT ORDERABLES - DEV ICE Final Result Performing Organization Address City/[facility]/ZIP Co de Phone Number RUSTY TALBOT (TUCKER) 1 [facility] [place] [address] * (ABNORMAL) POCT glucose (08/07/2024 9:15 PM CDT) Glucose, POC 216(H) 70 - 199 mg/dL Blood 08/07/2024 9:15 PM CDT 08/07/2024 9:15 PM CDT Cony Fitch MD LAB POCT ORDERABLES - DEV ICE Final Result RUSTY TALBOT (TUCKER) 1 [facility] [place] [address] * (ABNORMAL) POCT glucose (08/07/2024 4:28 PM CDT) Glucose, POC 270(H) 70 - 199 mg/dL Comment:Glu2: RN/ Notified Blood 08/07/2024 4:28 PM CDT 08/07/2024 4:28 PM CDT Cony Fitch MD LAB POCT ORDERABLES - DEV ICE Final Result Performing Organization Address [facility] Co de Phone Number RUSTY TALBOT (TUCKER) 1 [facility] [place] [address] * (ABNORMAL) POCT glucose (08/07/2024 11:36 AM CDT) Glucose, POC 300(H) 70 - 199 mg/dL Comment:Glu2: MARTÍNEZ Notified Blood 08/07/2024 11:3 6 AM CDT 08/07/2024 11:36 AM CDT Cony Fitch MD LAB POCT ORDERABLES - DEV ICE Final Result Performing Organization Address [facility] de Phone Number RUSTY TALBOT (TUCKER) 1 [facility] [place] [address] * (ABNORMAL) POCT glucose (08/07/2024 7:21 AM CDT) Glucose, POC 248(H) 70 - 199 mg/dL Blood 08/07/2024 7:21 AM CDT 08/07/2024 7:21 AM CDT Cony Fitch MD LAB POCT ORDERABLES - DEV ICE Final Result Performing Organization Address City/[facility] de Phone Number RUSTY TALBOT (TUCKER) 1 [facility] [place] [address] * (ABNORMAL) eGFR (08/07/2024 2:51 AM CDT) [...] MD LAB BLOOD ORDERABLES Fi nal Result [facility] (TUCKER) 1 [facility] Department [place] [address] * (ABNORMAL) Differential, auto (08/07/2024 2:51 AM [...] us Juan Sorto MD LAB BLOOD ORDERABLES [facility] Result RUSTY TALBOT (ANUPAMA) 1 [facility] Department [place] [address] * (ABNORMAL) CBC with auto differential (08/07/2024 2:51 AM CDT) WBC 14.25(H) 3.80 - 9.90 K/cumm Hgb 10.4(L) 11.9 - 15.5 g/dL RUSTY TALBOT (ANUPAMA) Hct 32.5(L) 35.6 - 45.5 % RUSTY TALBOT (ANUPAMA) Plt 296 150 - 400 K/cumm [facility] (ANUPAMA) MPV 9.9 9.1 - 12.3 fL [facility] ([place]AMA) RBC 3.70(L) 3.90 - 5.20 M/cumm [facility] ([place]) MCV 87.8 81.3 - 96.4 fL [facility] (AN[place]AMA) MCH 28.1 27.1 - 33.3 pg [facility] (AN[place]AMA) MCHC 32.0(L) 32.3 - 35.7 g/dL [facility] ([place]) RDW CV 13.8 11.1 - 14.9 % [facility] ([place]) RDW SD 44.0 35.7 - 48.1 fL [facility] ([place]) NRBC abs 0.00 0.00 - 0.01 K/cumm [facility] ([place]) Blood 08/07/2024 2:51 AM CDT 08/07/2024 4:39 AM CDT us Juan Sorto MD LAB BLOOD ORDERABLES nal Result [facility] (TUCKER) 1 [facility] Department [place] [address] * (ABNORMAL) Comprehensive metabolic panel (08/07/2024 2:51 AM CDT) Sodium 133(L) 135 - 145 mmol/L Potassium, pl 4.3 3.3 - 4.9 mmol/L [facility] (ANUPAMA) Chloride 99 97 - 110 mmol/L [facility] ([place]AMA) CO2 24 22 - 32 mmol/L [facility] ([place]AMA) Anion gap 10 2 - 15 mmol/L [facility] ([place]) BUN 29(H) 6 - 25 mg/dL [facility] ([place]) Creatinine 0.98 0.60 - 1.10 mg/dL [facility] ([place]AMA) Glucose 255(H) 70 - 199 mg/dL [facility] ([place]AMA) Comment: Interpretive Data Fasting [...] BLOOD ORDERABLES Fi nal Result RUSTY TALBOT (TUCKER) 1 [facility] [employer] [place] [address] * (ABNORMAL) POCT glucose (08/07/2024 2:11 AM CDT) [facility] Signature Glucose, POC 293(H) 70 - 199 mg/dL Blood 08/07/2024 2:11 AM CDT 08/07/2024 2:11 AM CDT us Cony Fitch MD LAB POCT ORDERABLES - DEV ICE Final Result RUSTY [facility] (TUCKER) 1 [facility] [place] [address] * Vancomycin level random (08/06/2024 9:07 PM CDT) Vancomycin random 12.0 mcg/mL Comment: Interpretive Data No reference ranges have been established for random drug levels. Current Interpretive Data was last revised on 2020. Blood 08/06/2024 9:07 PM CDT 08/06/2024 9:11 PM CDT Cony Fitch MD LAB BLOOD ORDERABLES Kaylah l Result RUSTY TALBOT (TUCKER) [address] [place] [address] [place] [address] * (ABNORMAL) POCT glucose (08/06/2024 8:19 PM CDT) Glucose, POC 250(H) 70 - 199 mg/dL Blood 08/06/2024 8:19 PM CDT 08/06/2024 8:19 PM CDT Cony Fitch MD LAB POCT ORDERABLES - DEV ICE Final Result Performing Organization Address City/[facility] Co de Phone Number RUSTY TALBOT (TUCKER) 1 [facility] [place] [address] * (ABNORMAL) POCT glucose (08/06/2024 4:38 PM CDT) Glucose, POC 277(H) 70 - 199 mg/dL Blood 08/06/2024 4:38 PM CDT 08/06/2024 4:38 PM CDT Cony Fitch MD LAB POCT ORDERABLES - DEV ICE Final Result Performing Organization Address City/[facility] Co de Phone Number RUSTY TALBOT (ANUPAMA) 1 [facility] [place] [address] * (ABNORMAL) POCT glucose (08/06/2024 11:57 AM CDT) Glucose, POC 358(H) 70 - 199 mg/dL Blood 08/06/2024 11:5 7 AM CDT 08/06/2024 11:57 AM CDT Cony Fitch MD LAB POCT ORDERABLES - DEV ICE Final Result RUSTY TALBOT (TUCKER) 1 [facility] [place] [address] * POCT glucose (08/06/2024 7:59 AM CDT) Glucose, POC 150 70 - 199 mg/dL Blood 08/06/2024 7:59 AM CDT 08/06/2024 7:59 AM CDT Cony Fitch MD LAB POCT ORDERABLES - DEV ICE Final Result Performing Organization Address City/[facility] Co de Phone Number [facility] (TUCKER) 1 [facility] [place] [address] * (ABNORMAL) eGFR (08/06/2024 3:54 AM CDT) [facility] eGFR 54(L) >=60 mL/min/1. 73 m2 Comment: [...] LAB BLOOD ORDERABLES Fi nal Result RUSTY [facility] (TUCKER) 1 [facility] Department [place] [address] * (ABNORMAL) Differential, auto (08/06/2024 3:54 AM CDT) Neutrophil abs 9.17(H) 1.50 - 6.50 K/cumm Imm gran abs 0.13(H) 0.00 - 0.10 K/cumm [facility] (TUCKER) Lymphocyte abs 2.87 0.80 - 3.30 K/cumm [facility] ([place]UCKER) Monocyte abs 1.10(H) 0.20 - 0.80 K/cumm [facility] (TUCKER) Eosinophil abs 0.26 0.00 - 0.50 K/cumm [facility] (TUCKER) Basophil abs 0.05 0.00 - 0.10 K/cumm [facility] ([place]UP[place]) Neutrophil pct 67.5 % [facility] (TUCKER) Comment: Interpretive Data Percent cell count reference [...] 2017. Monocyte pct 8.1 % [facility] (TUCKER) Comment: Interpretive Data Percent cell count reference [...] Fi nal Result [facility] (ANUPAMA) 1 [facility] Department [place] [address] * (ABNORMAL) CBC with auto differential (08/06/2024 [...] NRBC abs 0.00 0.00 - 0.01 K/cumm [facility] ([place]) Blood 08/06/2024 3:54 AM CDT 08/06/2024 4:21 AM CDT Juan Sorto MD LAB BLOOD ORDERABLES Fi nal Result Performing Organization Address City/[facility]/ZIP Co de Phone Number RUSTY TALBOT (ANUPMAA) 1 [facility] [place] [address] * Magnesium (08/06/2024 3:54 AM CDT) Pathologist [facility] Magnesium 1.6 1.4 - 2.5 mg/dL Blood 08/06/2024 3:54 AM CDT 08/06/2024 4:21 AM CDT Juan Sorto MD LAB BLOOD ORDERABLES Fi nal Result Performing Organization Address [facility] Co de Phone Number [facility] (ANUPAMA) 1 [facility] [place] [address] * (ABNORMAL) Comprehensive metabolic panel (08/06/2024 3:54 AM CDT) Sodium 137 135 - 145 mmol/L Potassium, pl 3.9 3.3 - 4.9 mmol/L [facility] (AN[place]AMA) Chloride 104 97 - 110 mmol/L [facility] ([place]) CO2 23 22 - 32 mmol/L [facility] ([place]) Anion gap 10 2 - 15 mmol/L [facility] ([place]AMA) BUN 26(H) 6 - 25 mg/dL [facility] ([place]AMA) Creatinine 1.00 0.60 - 1.10 mg/dL [facility] ([place]UPAMA) Glucose 160 70 - 199 mg/dL [facility] ([place]) Comment: Interpretive Data Fasting [...] BLOOD ORDERABLES Fi nal Result RUSTY TALBOT (TUCKER) 1 [facility] [employer] [place] [address] * POCT glucose (08/06/2024 3:13 AM CDT) Glucose, POC 189 70 - 199 mg/dL Blood 08/06/2024 3:13 AM CDT 08/06/2024 3:13 AM CDT Cony Fitch MD LAB POCT ORDERABLES - DEV ICE Final Result RUSTY TALBOT (TUCKER) 1 [facility] [employer] [place] [address] * Vancomycin level random (08/05/2024 10:24 PM CDT) Vancomycin random 7.1 mcg/mL Comment: Interpretive Data No reference ranges have been established for random drug levels. Current Interpretive Data was last revised on 2020. Blood 08/05/2024 10:2 4 PM CDT 08/05/2024 10:27 PM CDT Cony Fitch MD LAB BLOOD ORDERABLES Kaylah l Result Performing Organization Address City/[facility]/ZIP Co de Phone Number RUSTY TALBOT (TUCKER) 1 [facility] [place] [address] * (ABNORMAL) POCT glucose (08/05/2024 7:49 PM CDT) Glucose, POC 266(H) 70 - 199 mg/dL Blood 08/05/2024 7:49 PM CDT 08/05/2024 7:49 PM CDT Cony Fitch MD LAB POCT ORDERABLES - DEV ICE Final Result Performing Organization Address [facility] Co de Phone Number RUSTY TALBOT (TUCKER) 1 [facility] [place] [address] * (ABNORMAL) POCT glucose (08/05/2024 4:41 PM CDT) [facility] Signature Glucose, POC 223(H) 70 - 199 mg/dL Blood 08/05/2024 4:41 PM CDT 08/05/2024 4:41 PM CDT Cony Fitch MD LAB POCT ORDERABLES - DEV ICE Final Result Performing Organization Address City/[facility] Co de Phone Number RUSTY TALBOT (TUCKER) 1 [facility] [place] [address] * US Vein Duplex Lower Extremity Bilateral [...] Eduar Reza M.D. AR: KIMBERLY Report ID: [id number] Reading Location: [place] [address] Procedure Note Eduar Reza MD - 08/06/2024 [...] Eduar Reza M.D. AR: KIMBERLY Report ID: [id number] Reading Location: [id number] Cony Fitch MD [facility] US PROCEDURES Final R esult * (ABNORMAL) POCT glucose (08/05/2024 11:43 AM CDT) Glucose, POC 243(H) 70 - 199 mg/dL Blood 08/05/2024 11:4 3 AM CDT 08/05/2024 11:43 AM CDT Cony Fitch MD LAB POCT ORDERABLES - DEV ICE Final Result Performing Organization Address City/[facility]/ZIP Co de Phone Number RUSTY TALBOT (TUCKER) 1 [facility] [place] [address] * (ABNORMAL) POCT glucose (08/05/2024 9:38 AM CDT) Glucose, POC 397(H) 70 - 199 mg/dL Blood 08/05/2024 9:38 AM CDT 08/05/2024 9:38 AM CDT Cony Fitch MD LAB POCT ORDERABLES - DEV ICE Final Result Performing Organization Address City/[facility] Co de Phone Number RUSTY TALBOT (TUCKER) 1 [facility] [place] [address] * (ABNORMAL) POCT glucose (08/05/2024 7:27 AM CDT) Glucose, POC 329(H) 70 - 199 mg/dL Blood 08/05/2024 7:27 AM CDT 08/05/2024 7:27 AM CDT Cony Fitch MD LAB POCT ORDERABLES - DEV ICE Final Result Performing Organization Address City/[facility] Co de Phone Number RUSTY TALBOT (TUCKER) 1 [facility] [place] [address] * (ABNORMAL) POCT glucose (08/05/2024 4:09 AM CDT) Glucose, POC 275(H) 70 - 199 mg/dL Blood 08/05/2024 4:09 AM CDT 08/05/2024 4:09 AM CDT us Juan Sorto MD LAB POCT ORDERABLES - D EVICE Final Result Performing Organization Address City/[facility]/ZIP Co de Phone Number RUSTY TALBOT (TUCKER) 1 [facility] [place] [address] * (ABNORMAL) eGFR (08/05/2024 3:34 AM CDT) [...] Kaylah l Result RUSTY TALBOT (ANUPAMA) 1 [facility] [place] [address] * (ABNORMAL) Differential, auto (08/05/2024 3:34 AM [...] Kaylah l Result [facility] (ANUPAMA) 1 [facility] Department [place] [address] * (ABNORMAL) CBC with auto differential (08/05/2024 [...] - 0.01 K/cumm [facility] (ANUPAMA) Blood 08/05/2024 3:34 AM CDT 08/05/2024 3:45 AM CDT Sara Hastings MD LAB BLOOD ORDERABLES Kaylah l Result [facility] (ANUPAMA) 1 [facility] [place] [address] * Magnesium (08/05/2024 3:34 AM CDT) Magnesium 1.6 1.4 - 2.5 mg/dL Blood 08/05/2024 3:34 AM CDT 08/05/2024 3:45 AM CDT us Juan Sorto MD LAB BLOOD ORDERABLES Fi nal Result [facility] (ANUPAMA) 1 [facility] Department [place] [address] * (ABNORMAL) Comprehensive metabolic panel (08/05/2024 3:34 AM CDT) Sodium 134(L) 135 - 145 mmol/L Potassium, pl 4.0 3.3 - 4.9 mmol/L [facility] (ANUPAMA) Chloride 100 97 - 110 mmol/L [facility] (AN[place]AMA) CO2 22 22 - 32 mmol/L [facility] ([place]AMA) Anion gap 12 2 - 15 mmol/L [facility] (AN[place]AMA) BUN 25 6 - 25 mg/dL [facility] (ANUPAMA) Creatinine 0.97 0.60 - 1.10 mg/dL [facility] ([place]) Glucose 272(H) 70 - 199 mg/dL [facility] (ANUPAMA) [...] ORDERABLES Kaylah l Result Performing Organization Address City/[facility]/ZIP Co de Phone Number RUSTY TALBOT (TUCKER) 1 [facility] [place] [address] * (ABNORMAL) POCT glucose (08/04/2024 11:07 PM CDT) Glucose, POC 278(H) 70 - 199 mg/dL Blood 08/04/2024 11:0 7 PM CDT 08/04/2024 11:07 PM CDT Juan Sorto MD LAB POCT ORDERABLES - D EVICE Final Result Performing Organization Address [facility] de Phone Number RUSTY TALBOT (TUCKER) 1 [facility] [place] [address] * XR Foot Right 2 Views (08/04/2024 [...] signed by Delroy SARAVIA: MANJIT Report ID: [id number] Reading Location: [place] [address] Procedure Note Delroy Clemons MD - 08/04/2024 [...] signed by Delroy SARAVIA: MANJIT Report ID: [id number] Reading Location: [place] [address] Juan Sorto MD IMG XR PROCEDURES Final [...] signed by Delroy SARAVIA: MANJIT Report ID: [id number] Reading Location: [place] [address] Procedure Note Delroy Clemons MD - 08/04/2024 [...] signed by Delroy SARAVIA: MANJIT Report ID: [id number] Reading Location: [place] [address] Juan Sorto MD IMG XR PROCEDURES Final Result * (ABNORMAL) Urinalysis reflex to microscopic and culture Urine (08/04/2024 9:45 PM CDT) Color, ur Straw Yellow Clarity, ur Clear Clear [facility] (ANUPAMA) Specific gravity, ur 1.009 1.003 - 1.030 [facility] (ANUPAMA) pH, urine 6.5 [facility] (ANUPAMA) Comment: Interpretive Data U rine pH is affected by diet, medications, systemic acid-base disturbances, and renal tubular function. pH may affect urinary stone formation. For example, urine pH below 6.0 may help reduce the tendency for calcium phosphate stones and pH greater than 6.0 may reduce the tendency for uric acid stone formation. Source: [facility] [address] Current Interpretive Data was last revised on [...] L ORDERABLES Final Result Performing Organization Address [facility] Co de Phone Number RUSTY TALBOT (ANUPAMA) 1 [facility] [place] [address] * (ABNORMAL) Urinalysis, microscopic only (08/04/2024 9:45 PM CDT) WBC, ur 11-20(A) 0 - 5 /HPF RBC, ur 0-2 0 - 2 /HPF [facility] (AN[place]AMA) Epithelial cells, squamous, ur 1-5 0 - 5 /HPF [facility] (AN[place]AMA) Bacteria, ur Trace(A) [facility] (AN[place]AMA) Culture Reflex Comment Reflex to urine culture will be performed. [facility] (AN[place]AMA) Urine 08/04/2024 9:45 PM CDT 08/04/2024 9:49 PM CDT Sara Hastings MD LAB URINE ORDERABLES Kaylah l Result Performing Organization Address City/[facility]/ZIP Co de Phone Number RUSTY TALBOT (ANUPAMA) 1 [facility] [place] [address] * Urine culture Urine (08/04/2024 9:45 PM CDT) Report Final Report: No growth Comment:Testing performed by : [facility], 1 [facility], [address] Urine 08/04/2024 9:45 PM CDT 08/05/2024 12:19 AM CDT Narrative RUSTY TALBOT (TUCKER) - 08/06/2024 6:24 AM CDT Urine culture reflexed based upon urinalysis results. Testing performed by [facility]biology [facility] ([phone]) Sara Hastings MD LAB MICROBIOLOGY - GENERA L ORDERABLES Final Result [facility] (TUCKER) [address] [place] [address] Department [place] [address] * (ABNORMAL) POCT glucose (08/04/2024 9:34 PM CDT) Glucose, POC 401(H) 70 - 199 mg/dL Blood 08/04/2024 9:34 PM CDT 08/04/2024 9:34 PM CDT Juan Sorto MD LAB POCT ORDERABLES - D EVICE Final Result JERARD[facility] (ANUPAMA) [address] [place] [address] * Blood culture Blood Peripheral (08/04/2024 8:32 PM CDT) Report Final Report: No growth Comment:Testing performed by : [facility], 1 [facility], [place]., [address] Blood (Peripheral) 08/04/2024 8:32 PM CDT 08/04/2024 [...] performance characteristics have been verified by the [facility]. For questions about this culture, contact the Microbiology Laboratory at [phone]. Interpretive data was last revised on 23. Sara Hastings MD LAB MICROBIOLOGY - GENERA L ORDERABLES Final Result RUSTY TALBOT (ANUPAMA) 1 [facility] Department [place] [address] * Blood culture Blood Peripheral (08/04/2024 8:32 PM CDT) Report Final Report: No growth Comment:Testing performed by : [facility], 1 [facility], [place]., [address] Blood (Peripheral) 08/04/2024 8:32 PM CDT 08/04/2024 [...] performance characteristics have been verified by the [facility]. For questions about this culture, contact the Microbiology Laboratory at [phone]. Interpretive data was last revised on 23. Sara Hastings MD LAB MICROBIOLOGY - GENERA L ORDERABLES Final Result RUSTY TALBOT (ANUPAMA) 1 [facility] [place] [address] * Sepsis Lactate w/ Reflex (08/04/2024 7:17 PM CDT) [facility] Sepsis Lactate 1.3 0.7 - 2.0 mmol/L Blood 08/04/2024 7:17 PM CDT 08/04/2024 7:23 PM CDT Sara Hastings MD LAB BLOOD ORDERABLES Kaylah l Result RUSTY TLABOT (TUCKER) 1 [facility] [place] [address] * (ABNORMAL) eGFR (08/04/2024 7:17 PM CDT) [facility] eGFR 52(L) >=60 mL/min/1. 73 m2 Comment: [...] MD LAB BLOOD ORDERABLES Kaylah l Result [facility] (TUCKER) 1 [facility] Department [place] [address] * (ABNORMAL) Differential, auto (08/04/2024 7:17 PM [...] Kaylah l Result RUSTY TALBOT (ANUPAMA) 1 [facility] Department of Laboratories [place], [place] [address] * (ABNORMAL) CBC with auto differential (08/04/2024 7:17 PM CDT) WBC 15.36(H) 3.80 - 9.90 K/cumm Hgb 12.5 11.9 - 15.5 g/dL R[facility]Y TALBOT (ANUPAMA) Hct 38.8 35.6 - 45.5 % [facility] (ANUPAMA) Plt 310 150 - 400 K/cumm [facility] ([place] MPV 9.7 9.1 - 12.3 fL [facility] ([place]) RBC 4.46 3.90 - 5.20 M/cumm [facility] ([place]) MCV 87.0 81.3 - 96.4 fL [facility] ([place]) MCH 28.0 27.1 - 33.3 pg [facility] ([place]AMA) MCHC 32.2(L) 32.3 - 35.7 g/dL [facility] ([place]) RDW CV 13.5 11.1 - 14.9 % [facility] ([place]) RDW SD 42.5 35.7 - 48.1 fL [facility] ([place]) NRBC abs 0.00 0.00 - 0.01 K/cumm [facility] ([place]) Blood 08/04/2024 7:17 PM CDT 08/04/2024 7:23 PM CDT us Sara Hastings MD LAB BLOOD ORDERABLES Kaylah l Result [facility] (ANUPAMA) 1 [facility] Department [place] [address] * (ABNORMAL) Comprehensive metabolic panel (08/04/2024 7:17 PM CDT) Sodium 131(L) 135 - 145 mmol/L Potassium, pl 4.5 3.3 - 4.9 mmol/L [facility] ([place]AMA) Chloride 94(L) 97 - 110 mmol/L [facility] ([place]) CO2 22 22 - 32 mmol/L [facility] ([place]) Anion gap 16(H) 2 - 15 mmol/L [facility] ([place]) BUN 32(H) 6 - 25 mg/dL [facility] ([place]) Creatinine 1.03 0.60 - 1.10 mg/dL [facility] ([place]) Glucose 418(H) 70 - 199 mg/dL [facility] (AN[place]AMA) Comment: Interpretive Data Fasting [...] Kaylah haq Result [facility] (ANUPAMA) 1 [facility] Department [place] [address] * (ABNORMAL) Tissue aerobic and anaerobic culture and gram stain Tissue Leg, right (07/29/2024 10:10 AM CDT) Direct Specimen Exam Stain: No polymorphonuclear leukocytes seen. No organisms seen. Comment:Testing performed by : [facility], 1 [facility] [place]., [address] Report Final Report: Few Staphylococcus aureus Methicillin susceptible (MSSA) by penicillin binding protein 2a (PBP2a) testing. Few Mixed skin microorganisms. (.) [facility] (ANUPAMA) Comment:Testing performed by : [facility], [address] [facility] [place]., [address] Organism STAPHYLOCOCCUS AUREUS [facility]ERARD[facility] (ANUPAMA) Organism MIXED SKIN MICROORGANISMS. R[facility]Y [facility] (ANUPAMA) Tissue (Leg, right) 07/29/2024 10:10 AM CDT 07/29/2024 6:09 PM CDT Narrative RUSTY TALBOT (ANUPAMA) - 08/03/2024 7:37 AM CDT Specimen received in a sterile container. Testing performed by [facility] ([phone]) Specimens submitted from normally sterile body sites [...] - GENERAL ORDERABLES Final Result RUSTY TALBOT (ANUPAMA) 1 [facility] Department [place] [address] * (ABNORMAL) Lipid panel (10/16/2023 2:36 PM [...] last revised on 2017. 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 Current interpretive data was last revised 2018. Testing performed by: [address] [address] Creatinine Ur 92.2 mg/dL [facility] (ANUPAMA) Comment: Interpretive Data No reference range established. Current interpretive data was last revised 2018. Testing performed by: [address] [address] Albumin Creatinine Ratio, Ur 1,131(H) 1 - 29 mg/g [facility] (ANUPAMA) Comment:Testing performed by : [address] [address] Urine 09/18/2022 12:5 3 PM CDT 09/18/2022 7:11 PM CDT us Natalia Vang DO LAB URINE ORDERABLES Final Result RUSTY TALBOT TUCKER) 1 [facility] Department [place] [address] * Dexa Axial Skeleton Bone Density 1 or 2 Site (08/23/2020 12:03 PM CDT) Anatomical Region Laterality Modality Body N/A Other 08/23/2020 12:3 1 PM CDT Narrative 08/23/2020 12:33 PM CDT EXAM DESCRIPTION: DEXA AXIAL SKELETON BONE DENSITY 1 OR MORE SITES REASON FOR STUDY: Post-menopausal female, screening for osteoporosis. Major General/Model: Konbini Discovery SL (S/N [id number]) CLINICAL INFORMATION: Current height: 64 inches Maximum [...] by Thomas Davila M.D. AB: Report ID: [id number] Reading Location: [id number] Procedure Note Thomas Davila MD - 08/23/2020 EXAM DESCRIPTION: DEXA AXIAL SKELETON BONE DENSITY 1 OR MORE SITES REASON FOR STUDY: Post-menopausal female, screening for osteoporosis. Major General/Model: Konbini Discovery SL (S/N [id number]) CLINICAL INFORMATION: Current height: 64 inches Maximum [...] by Thomas Davila M.D. AB: Report ID: [id number] Reading Location: [place] [address] Natalia Vang DO IMG DXA PROCEDURES Final R esult * DIABETES FOOT EXAM (07/22/2017) [facility] Diabetic Foot Exam Unknown Historical Provider MD HEALTH MAINTENANCE Final Result from Last 3 Months or Most Recently Relevant to Health Maintenance Insurance [facility] MEDICARE ADVANTAGE [facility] MEDIC[facility] Address: [address] [address] [place] [address] [facility] MEDICARE ADVANTAGE [facility] MEDICARE Address: [address] [address] [place] [address] Advance Directives For more information, please contact: [phone] * Full Code (Latest Code Status on [...] 5:31 PM 05/08/2021 5:50 PM Care Teams Superintendent Ammunition Storage Relationship Specialty Start Date End Date Faith Hamm NP [address] [facility] [address] [place] [address] PCP - General Family Medicine 10/16/23 [place] [address] [address] Consulting Physician Endocrinology 03/29/18 [place] [address] [address] Consulting Physician Nephrology 02/27/21 Thomas Ordoñez MD [address] [facility] MEDICAL ONCOLOGY, [facility] [address] [place], [place] [address] Consulting Physician Medical Oncology 05/22/21 Joseph Mccullough MD [address] [place] [address] [address] [place] [address] Consulting Physician Gastroenterology 03/19/23
--- OUTSIDE RECORDS SUMMARY | 2024-09-07 12:02 | XMS_ITS | Clinical Summary ---
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 Cont current mgmt. 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 Pulse 68 02/01/2021 11:40 AM RESISTOR INSPECTOR Temperature 36.3 C (97.3 F) 02/01/2021 11:40 AM RESISTOR INSPECTOR Respiratory Rate 19 10/03/2020 1:56 PM CDT Oxygen Saturation 97% 02/01/2021 11:40 AM RESISTOR INSPECTOR Inhaled Oxygen Concentration - - Weight 68.3 kg (150 lb 8 oz) 02/01/2021 11:40 AM RESISTOR INSPECTOR Height 162.6 cm (5' 4) 02/01/2021 11:40 AM RESISTOR INSPECTOR Body Mass Index 25.83 02/01/2021 11:40 AM RESISTOR INSPECTOR Plan of Treatment Health Maintenance Due Date Last Done Comments Diabetes: Ophthalmology Exam 08/29/2020 Diabetes: Pedal Pulse Checked 08/29/2020 Diabetes: Sensory Foot Exam 08/29/2020 Diabetes: Visual Foot Exam 08/29/2020 Diabetes: Hemoglobin A1C 02/26/2021 021, 11/19/2020, 08/23/2020 Influenza Vaccine (#1) 2024 0, 01/14/2019, 01/07/2018, Additional history exists Pneumococcal Vaccine: 50+ Years Completed 04/14/2017, 03/02/2006 Hepatitis B Vaccine Aged Out No longe r eligible based on patient's age to complete this topic Insurance [facility] Care Teams Telephone Order Clerk Relationship Specialty Start Date End Date Natalia Vang DO [address] [place] [address] PCP - General Internal Medicine 08/29/20
--- OUTSIDE RECORDS SUMMARY | 2024-09-07 12:02 | XMS_ITS | Encounter Summary ---
Author Organization [employer] [facility] Address [address] [place], [place] [address] [place] [address] Phone Care Team Providers Care Perlite Grinder Name Role Phone Natalia Vang DO Primary Care Provider [phone] Encounter Details Date Type Department Care Team (Late st Contact Info) Description 09/12/2020 Orders Only [employer] [facility] [address] [place] [address] 1 [place] [address] Di Demarco MD [address] [facility]. [address] [place], [place] [address] Social History Tobacco Use Types Packs/Day Years [...] on filedocumented in this encounter Care Teams Perlite Grinder Relationship Specialty Start Date End Date Natalia Vang DO [address] [place] [address] PCP - General Internal Medicine 08/29/20 documented as of this encounter
--- OUTSIDE RECORDS SUMMARY | 2024-09-07 12:02 | XMS_ITS | Encounter Summary ---
Author Organization [facility] Healthcare Address [address] [place] [address] Care Team Providers Care Hip Hop Performers Name Role Phone Naun Georges MD Unavailable [phone] Di Demarco MD Unavailable [phone] Thomas Ordoñez MD Unavailable Joseph Mccullough MD Unavailable [phone] Faith Hamm NP Primary Care Provider [phone] Encounter Details Date Type Department Care Team (Late st Contact Info) Description 09/06/[address] [facility] Medical [facility] [place] [address] [place] [address] [address] [place] [address] Faith Hamm NP [address] [place] [address] [address] [place] [id number] Social History Tobacco Use Types Packs/Day Years [...] materials from doctor or pharmacy Never 03/11/2023 [facility] Utilities Answer Date Recorded In the [...] any clubs o r organizations such as episcopalian groups, unions, fraternal or athletic groups, or [...] to sleep or slept in a senior care (including now)? No 04/13/2023 PHQ-9 Answer Date [...] any time in the past 12 m [facility], were you homeless or living in a senior care (including now)? 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 Patient stated she'd let her daughter know. documented in this encounter Plan of Treatment Not on file documented as of this encounter Goals Goal Patient Goal Type Associated Problems Recent Progress Patient-Stated? Author -Pain Behavioral Health Improving(03/2022 12:53 PM QUARTER INSPECTOR) Betty Aiken, CIRA Note: Patient will establish a comfort-function goal and identify the pain level that will allow the patient to perform desired activities and achieve an acceptable quality of life. documented as of this encounter Visit Diagnoses Not on filedocumented in this encounter Care Teams Hip Hop Performers Relationship Specialty Start Date End Date Faith Hamm NP [address] [facility] [address] [place] [address] PCP - General Family Medicine 10/16/23 [place] [address] [address] [facility] [address] [place] [address] Consulting Physician Endocrinology 03/29/[address] [place] [address] [facility] [address] [place] [address] Consulting Physician Nephrology 02/27/21 Thomas Ordoñez MD [address] [facility] MEDICAL ONCOLOGY, [facility] [address] [place], [place] [address] Consulting Physician Medical Oncology 05/22/21 Joseph Mccullough MD [address] [place] [address] [facility] [address] [place] [address] Consulting Physician Gastroenterology 03/19/23 documented as of this encounter
--- OUTSIDE RECORDS SUMMARY | 2024-09-07 12:03 | XMS_ITS | Encounter Summary ---
Author Organization [facility] Healthcare Address [address] [place] [address] Care Team Providers Care Bacteriologist Fishery Name Role Phone Devaughn Bazan DO Unavailable [phone] Natalia Vang DO Primary Care Provider [phone] Naun Georges MD Unavailable [phone] Frankie Bright MD Unavailable [phone] Di Demarco MD Unavailable [phone] Thomas Ordoñez MD Unavailable Anne Marie Platt [facility] Unavailable [phone] Naun Georges MD Unavailable [phone] Mendez Shine RN Unavailable [phone] Joseph Mccullough MD Unavailable [phone] Faith Hamm NP Primary Care Provider [phone] Reason for Visit * Reason Onset Date Comments Scheduling Appointments 05/23/2020 Reminder call for DEXA, No answer Encounter Details Date Type Department Care Team (Late st Contact Info) Description 05/23/2020 Telephone [facility] [address] [place] [address] Kristina Pierre RT Scheduling Appointments (Reminder call [...] on file Legal Sex Female 5:37 PM PULLEY MAINTAINER Gender Identity Not on file Sexual Orientation Not on file documented as of this encounter Plan of Treatment Not on file documented as of this encounter Goals Goal Patient Goal Type Associated Problems Recent Progress Patient-Stated? Author BH-Pain Behavioral Health Improving(03/2022 12:53 PM PULLEY MAINTAINER) No Betty Elizabeth RN Note: Patient will [...] COVID: Suspected 05/03/2021 05/03/2021 05/04/2021 3:05 AM PULLEY MAINTAINER COVID: Suspected 05/03/2021 05/03/2021 05/04/2021 7:39 PM PULLEY MAINTAINER COVID: Suspected 12/30/2022 12/30/2022 12/30/2022 10:47 AM CDT documented as of this encounter Care Teams Bacteriologist Fishery Relationship Specialty Start Date End Date Natalia Vang DO PCP - General Family Medicine 10/09/17 10/15/23 Faith Hamm NP [address] [address] PCP - General Family Medicine 10/16/23 Devaughn Bazan DO Surgeon Otolaryngology 03/26/17 11/09/23 [place] [address] [address] [address] Consulting Physician Endocrinology 03/29/18 [place] [address] [address] Anesthesiologist Pain Management 10/20/19 11/09/23 [place] [address] [address] Consulting Physician Nephrology 02/27/21 Thomas Ordoñez MD [address] [facility] MEDICAL ONCOLOGY[address] [address] Consulting Physician Medical Oncology 05/22/21 Anne Marie Platt, [address] [place] [address] Pharmacist Pharmacy 08/23/21 08/25/21 [place] [address] [address] [address] Consulting Physician Endocrinology 12/15/22 11/09/23 Mendez Shine, CIRA [address] [place] [address] [address] Take Off Worker 03/06/23 04/12/23 Joseph Mccullough MD [address] [place] [address] [address] Consulting Physician Gastroenterology 03/19/23 documented as of this encounter
--- OUTSIDE RECORDS SUMMARY | 2024-09-07 12:03 | XMS_ITS | Continuity of Care Document ---
Author Organization [facility] Address [address] [place] [address] Phone Care Team Providers Care Acetaldehyde Converter Operator Name Role Phone Cuauhtemoc CARPIO, Simba Unavailable [...] Diagnoses Date Provider Providers Copied on Encounter [facility], [address], [place], [place], [address], [place] tel:[phone] SEC [place] Professional Diabetic eye exam (chief complaint) Nuclear sclerotic cataract of both eyesDry eyes, bilateralType 2 diabetes mellitus with complicationsM oderate nonproliferati ve diabetic retinopathy, without macular edema, associated with type 2 diabetes mellitus Dec-2 2- 5 Kerwinkayla Cottrell. [address] [facility], [facility] A, [place], [place], [address], [place]. tel:[phone] Office/outpa tient Visit, [facility], [address] [place] [address] [address], [place], [place], [address], [place] tel:[phone] SEC [place] Professional F/u exam, Plaquenil therapy (chief complaint) Therapeutic Drug MonitoringSENI LE NUCLEAR CATARACTDiabet es (high blood sugar disease) affecting the eyeDiabetic retinopathy Apr-0 6201 5 Mariam Almodovar. [address] [facility] [facility], [address], [address], [place]. tel:[phone] Referring Provider: Simba Villarreal, [address] [facility] [address], [place], [address] . tel:[phone] Office/outpa tient Visit, [facility], [address], [place], [place], [address], [place] tel:[phone] SEC Tamir [place] Professional F/u exam, Plaquenil therapy (chief complaint) Therapeutic Drug MonitoringDiab etes (high blood sugar disease) affecting the eyeDiabetic retinopathySEN ILE NUCLEAR CATARACT Oct-0 4 Cuauhtemoc Cottrell. [address] [facility], [address], [place], [place], [address], [place]. tel:[phone] Referring Provider: Simba Villarreal [address] [facility], [place], [address] . tel:[phone] Office/outpa tient Visit, [facility], [address], [place], [place], [address], [place] tel:[phone] SEC [place] RADHA Professional Diabetes Mellitus Type 2, UncomplicatedS ENILE NUCLEAR CATARACTTherap eutic Drug Monitoring May-0 4-201 4 Cuauhtemoc Cottrell. [address], [address] [place], [address], [place]. tel:[phone] Office/outpa tient Visit, [facility], [address], [place], [place], [address], [place] tel:[phone] SEC Tamir RADHA Professional Therapeutic Drug MonitoringSENI LE NUCLEAR CATARACTHORDEO LUM INTERNUMDiabet es Mellitus Type 2, Uncomplicated Sep- 3-201 3 Cuauhtemoc Cottrell. [address] [facility], [facility] [place], [address], [place]. tel:[phone] Referring Provider: Simba Villarreal, [address] [place], [address] . tel:[phone] Office/outpa tient Visit, [facility], [address], [place], [place], [address], [place] [phone] SEC [place] RADHA Professional CHALAZION Apr- 3 Mariam Almodovar. [address] [facility], [address], [place], [address], [place]. tel:[phone] [facility], [address], [place], [place], [address], [place] tel:[phone] SEC Tamir RADHA Professional No Information Fe- 3 Cuauhtemoc Cottrell. [address] [facility], [facility] [place], [address], [place]. tel:[phone] Referring Provider: Simba Villarreal, [address] [facility] [place], [address] . tel:[phone] Office/outpa tient Visit, [facility], [address], [place], [place], [address], [phone] SEC Tamir RADHA Professional BLEPHAROCONJUN CTIVIT NOS 8-201 2 Cuauhtemoc Cottrell. [address] [facility], [facility] A, [place], [place], [address], [place]. tel:[phone] [facility], [address], [place], [place], [address], tel:[phone] SEC Tamir GARCIA Professional No Information 8 Isaac Kim. [facility], [address], [place], [place], [address], . tel:[phone] Referring Provider: Simba Villarreal, [address] [facility] A, [place], [address] . tel:[phone] Office/outpa tient Visit, [facility], [address], [place], [place], [address], [place] [phone] SEC Tamir GARCIA Professional No Information 7 Isaac Kim. [facility], [address], [place], [place], [address], [place]. tel:[phone] Referring Provider: Julio Villarreal, [facility] [address], [place], [address] . 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 Related to Chalazion no field sales manager - DM letter - 1yr cataracts - [...]
--- OUTSIDE RECORDS SUMMARY | 2024-09-07 12:03 | XMS_ITS | Clinical Summary ---
Author Organization [facility] Address [address] [place] [address] Phone Care Team Providers Care Restaurant Bartender Name Role Phone Hank Seymour MD Unavailable [phone] Sandip Murphy MD Unavailable [phone] Sony Patel MD Unavailable + Mariah Rose MD Unavailable [phone] Con Pete MD, Merrill Unavailable [phone] Natalia Vang DO Primary Care Provider [phone] Urban To APRN, HOUSEKEEPER CHILD CARE Unavailable Allergies Active Allergy Reactions Criticality Noted Date Comments Codeine Unknown Penicillins Unknown Medications anastrozole (ARIMIDEX) 1 MG Tablet Take 1 mg by mouth daily. Active NOVOLOG FLEXPEN 100 UNIT/ML Solution Pen-injector 15 Units by Subcutaneous route. 3 03/27/19 16 Active B-D UF III MINI PEN NEEDLES 31G X 5 MM [facility] 4 04/09/19 16 Active fluticasone (FLONASE) 50 [...] Comments Blood Pressure 105/66 03/28/2024 2:10 PM LEAD CUSTODIAN Pulse 55 03/28/2024 2:10 PM LEAD CUSTODIAN Temperature 36.4 C (97.5 F) 11/27/2015 11:04 AM CDT Respiratory Rate 14 03/28/2024 2:10 PM LEAD CUSTODIAN Oxygen Saturation 97% 03/28/2024 2:10 PM LEAD CUSTODIAN Inhaled Oxygen Concentration - - Weight 67.1 kg (148 lb) 03/28/2024 2:10 PM LEAD CUSTODIAN Height 165.1 cm (5' 5) 03/28/2024 2:10 PM LEAD CUSTODIAN Body Mass Index 24.63 03/28/2024 2:10 PM LEAD CUSTODIAN Plan of Treatment Health Maintenance Due Date [...] 03/11/2018 Infected nailbed of toe, unspecified laterality [facility] SCREENING BILATERAL DIGITAL W CAD Routine 08/26/2016 Visit for screening mammogram DILATED EYE EXAM Routine 02/07/2016 [facility] BONE DENSITOMETRY AXIAL SKELETON Routine 04/09/2015 2:23 PM LEAD CUSTODIAN Closed fracture of femur with routine healing, unspecified fracture morphology, unspecified laterality, unspecified portion of femur, subsequent encounter Abnormal Bone Density Screening from Last 3 Months or Most Recently Relevant to Health Maintenance Results * EXTERNAL PODIATRY REFERRAL (03/11/2018) us Lavinia Padgett MD OUTPT REFERRALS EXT/INT Kaylah l Result * [facility] SCREENING BILATERAL DIGITAL W CAD (08/26/2016) Anatomical Region Laterality Modality breast Bilateral Mammography us Bashir Uribe MD IMG MAMMO ORDERABLES Kaylah l Result * DILATED EYE EXAM (02/07/2016) us Simba Posadas MD PROCEDURE/MINOR SURGICAL ORDE RABLES Final Result * [facility] BONE DENSITOMETRY AXIAL SKELETON (04/09/2015 2:23 PM LEAD CUSTODIAN) Anatomical Region Laterality Modality BODY N/A Other 04/09/2015 4:13 PM LEAD CUSTODIAN Impressions 04/09/2015 4:16 PM LEAD CUSTODIAN IMPRESSION: 1. Low bone mass by WHO [...] of Osteoporosis (http://www.nof.org/professionals/clinical-guidelines) Narrative 04/09/2015 4:16 PM LEAD CUSTODIAN EXAMINATION: Bone density examination (hip and spine). HISTORY: 80 year old postmenopausal female with given history of femur fracture. Current Height: 64 inches Maximum Height: 66 inches Weight: 153 pounds RISK FACTORS: Left hip fracture as an adult. COMPARISON(S): August 28, 2010. PROJECTION PRINTER/MODEL: Instamojo (S/N [id number] FINDINGS: AP lumbar spine L1-L4 Total BMD is 1.029 g/xr8B-elgox is -1.3 Most recent prior BMD was 1.059 g/cm2 There has been a 2.8% decrease in BMD which is statistically significant. Left Hip Current Total BMD is 0.837 g/ui4L-pjfwa is -1.4 Most recent prior Total BMD was 0.941 g/cm2 There has been a 11.1% decrease in BMD which is statistically significant. Current femoral neck BMD is 0.749 g/wa1U-yzskw is -2.1 Thomas Davila M.D. THIS IS [...] as an adult. COMPARISON(S): August 28, 2010. PROJECTION PRINTER/MODEL: Instamojo (S/N [id number] FINDINGS: AP lumbar spine L1-L4 Total BMD is 1.029 g/fg2E-kapjf is -1.3 Most recent prior BMD was 1.059 g/cm2 There has been a 2.8% decrease in BMD which is statistically significant. Left Hip Current Total BMD is 0.837 g/gg3S-dqavd is -1.4 Most recent prior Total BMD was 0.941 g/cm2 There has been a 11.1% decrease in BMD which is statistically significant. Current femoral neck BMD is 0.749 g/ra2I-ygaed is -2.1 Thomas Davila M.D. THIS IS [...] Relevant to Health Maintenance Insurance [facility] Care Teams Restaurant Bartender Relationship Specialty Start Date End Date Natalia Vang DO [address] [facility] [place] [address] PCP - General Family Medicine 07/20/20 Hank Seymour MD Consulting Physician Radiation Oncology 07/31/15 Sandip Murphy MD Consulting Physician General Surgery 07/31/15 Sony Patel MD [address] [address] Consulting Physician Endocrinology 07/31/15 Mariah Rose MD 1 [place] [address] Consulting Physician Wound Care 07/31/15 Merrill Andujar Jr., MD [address] [place] [address] Consulting Physician Oncology 07/31/15 Urban To APRN, HOUSEKEEPER CHILD CARE [address] [place] [address] Nurse Practitioner Advanced Practice Nurse 03/28/23
--- OUTSIDE RECORDS SUMMARY | 2024-09-07 12:03 | XMS_ITS | Encounter Summary ---
Author Organization [facility] Healthcare Address [address] [place] [address] Care Team Providers Care Burr Sander Name Role Phone Naun Georges MD Unavailable [phone] Di Demarco MD Unavailable [phone] Thomas Ordoñez MD Unavailable Joseph Mccullough MD Unavailable [phone] Faith Hamm NP Primary Care Provider Encounter Details Date Type Department Care Team (Late st Contact Info) Description 08/15/2024 Telephone [facility] Medical Group Primary Care at [address] [place] [id number] Bertha Kelley MA Social History Tobacco [...] materials from doctor or pharmacy Never 03/11/2023 [facility] Utilities Answer Date Recorded In [...] often do you attend chur ch or amish services? 1 to 4 times per year 08/05/2024 Do you belong to any clubs o r organizations such as cheondoism groups, unions, fraternal or athletic groups, or [...] on file Legal Sex Female 5:37 PM YARD CLERK Gender Identity Not on file Sexual Orientation Not on file documented as of this encounter Miscellaneous Notes * Telephone Encounter - Bertha Kelley MA - 08/15/2024 3:00 PM CDT Please disregard previous message, patients was d/c to [facility] Bertha Kelley [facility] Natural Remedy Consultant [facility] Accountable Care Organization/[facility] Medical group * Telephone Encounter - Bertha [...] attempts in EPIC. Thank you! Bertha Kelley, [facility] Natural Remedy Consultant [facility] Accountable Care Organization/[facility] Medical group [email or web address] documented in this encounter Plan of Treatment Not on file documented as of this encounter Goals Goal Patient Goal Type Associated Problems Recent Progress Patient-Stated? Author BH-Pain Behavioral Health Improving(03/2022 12:53 PM YARD CLERK) Betty Aiken, CIRA Note: Patient will establish a comfort-function goal and identify the pain level that will allow the patient to perform desired activities and achieve an acceptable quality of life. documented as of this encounter Visit Diagnoses Not on filedocumented in this encounter Care Teams Burr Sander Relationship Specialty Start Date End Date Faith Hamm NP [address] [address] PCP - General Family Medicine 10/16/23 [place] [address] [address] [address] Consulting Physician Endocrinology 03/29/18 [place] [address] [address] [address] Consulting Physician Nephrology 02/27/21 Thomas Ordoñez MD [facility] MEDICAL ONCOL[facility]Y[address] [address] Consulting Physician Medical Oncology 05/22/21 Joseph Mccullough MD [address] [place] [address] Consulting Physician Gastroenterology 03/19/23 documented as of this encounter
--- OUTSIDE RECORDS SUMMARY | 2024-09-07 12:03 | XMS_ITS | Encounter Summary ---
Author Organization [facility] Healthcare Address [address] [place] [address] Care Team Providers Care Canopy Inspector Name Role Phone Naun Georges MD Unavailable [phone] Di Demarco MD Unavailable [phone] Thomas Ordoñez MD Unavailable Joseph Mccullough MD Unavailable [phone] Faith Hamm NP Primary Care Provider [phone] Reason for Visit * Reason Onset Date Comments Medical Question/Miscellaneous 08/30/2024 Encounter Details Date Type Department Care Team (Late st Contact Info) Description 08/30/2024 Telephone [facility] Medical Group Primary Care at [address] [place] [address] Faith Hamm EDUCATION PROGRAM COORDINATOR [address] [place] [address] Medical Question/Miscellaneous Social History Tobacco [...] materials from doctor or pharmacy Never 03/11/2023 [facility] Utilities Answer Date Recorded In [...] often do you attend chur ch or pentecostalism services? 1 to 4 times per year [...] place to sleep or slept in a [place] facility (including now)? No 04/13/2023 PHQ-9 Answer Date [...] any time in the past 12 [facility], were you homeless or living in a [place] (including now)? 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 Never 08/30/2024 9:05 AM CDT Cathy Wiggins RN Q2: How many drinks containing alcohol do you have on a typical day when you are drinking? Patient does not drink 08/30/2024 9:05 AM Cathy Vasquez RN Q3: How often do you have six or more drinks on one occasion? Never 08/30/2024 9:05 AM Cathy Vasquez RN documented as of this encounter Miscellaneous Notes * Telephone Encounter - Lazara Sanchez - 08/30/2024 12:35 PM CDT Medical Question/Miscellaneous Caller???s Concern: Raysa with [facility] stating that they are unable to accept this Patientas they are at Capacity. Please refer Patient to a different group. Does message need to be routed? Yes-Action Needed documented in this encounter Plan of Treatment Not on file documented as of this encounter Goals Goal Patient Goal Type Associated Problems Recent Progress Patient-Stated? Author BH-Pain Behavioral Health Improving(03/2022 12:53 PM SCREW MACHINE TOOL SETTER) No Betty Elizabeth RN Note: Patient will establish a comfort-function goal and identify the pain level that will allow the patient to perform desired activities and achieve an acceptable quality of life. documented as of this encounter Visit Diagnoses Not on filedocumented in this encounter Care Teams Canopy Inspector Relationship Specialty Start Date End Date Faith Hamm NP [address] [facility] [address] [place] [address] PCP - General Family Medicine 10/16/23 [place] [address] [address] [facility] [address] [place] [address] Consulting Physician Endocrinology 03/29/18 [place] [address] [address] [facility] [address] [address] Consulting Physician Nephrology 02/27/21 Thomas Ordoñez MD [address] [facility] MEDICAL ONCOLOGY, [address] [address] Consulting Physician Medical Oncology 05/22/21 Joseph Mccullough MD [address] [place] [address] Consulting Physician Gastroenterology 03/19/23 documented as of this encounter
--- OUTSIDE RECORDS SUMMARY | 2024-09-07 12:03 | XMS_ITS | Clinical Summary ---
Author Organization [facility] Address [address] [place] [address] Care Team Providers Care Wash Oil Pump Operator Helper Name Role Phone Naun Georges MD Unavailable [phone] Di Demarco MD Unavailable [phone] Thomas Ordoñez MD Unavailable Joseph Mccullough MD Unavailable Faith Hamm NP Primary Care Provider Allergies Active Allergy Reactions Criticality Noted Date [...] with long-term current use of insulin ([facility]) Use to inject 4 times daily as [...] with long-term current use of insulin ([facility]) TEST BLOOD SUGAR FOUR TIMES DAILY 300 [...] 01/01 Assessment & Plan (01/20/2024 8:47 PM GLAUCOMA SPECIALIST): Annual Medicare wellness exam completed today. All [...] 04/09/2023 Assessment & Plan (04/09/2023 4:00 PM GLAUCOMA SPECIALIST): Due to patient's current condition of odontoid fracture, and the fact that she has in a neck brace, she has increased risk for balance issues and falling. Patient would benefit from home physical therapy/occupational therapy. Both of these services were ordered during patient's hospital discharge planning. Dependent edema 04/07/2023 Assessment & Plan (07/06/2024 7:00 PM CDT): Assessment & Plan (04/08/2023 10:01 AM GLAUCOMA SPECIALIST): Trial of low-dose furosemide. Encouraged use of compression stocking, elevated legs above heart when possible. Follow advise of PT/OT. H/O gastrointestinal hemorrhage 03/13/2023 Right adrenal mass 02/10/2023 Assessment & Plan (02/12/2023 1:47 PM GLAUCOMA SPECIALIST): #Indeterminate hypoattenuating lesion within the left inferior [...] 2022 Assessment & Plan (04/08/2023 10:00 AM GLAUCOMA SPECIALIST): Slowly improving, currently in a neck brace. Keep sidney appts with specialists. Assessment & Plan (02/16/2023 12:26 PM GLAUCOMA SPECIALIST): # C2 type II odontoid fracture with epidural hematoma - NSGY Spine consult (Dr. Rodriguez) - CTA head/neck - no evidence of vascular injuries - Pain control - [place] J at all times - Q4H NCs [...] the cervical spine -- Continue to wear [place] J brace at all times Closed fracture of spinous process of thoracic v ertebra 02/09/2023 Assessment & Plan (02/09/2023 11:52 AM GLAUCOMA SPECIALIST): T4 spinous process fx - PT/OT - Pain control At risk for inadequate oral intake 02/09/2023 Assessment & Plan (02/10/2023 1:33 PM GLAUCOMA SPECIALIST): - Patient reports having poor intake due to throat pain/[place] J - Supplements ordered - 02/10 re-educated patient on goal of at least 1 Ensure per mealtime Other closed displaced odontoid fracture, initia l encounter 02/08/2023 Ductal carcinoma of breast, right 04/11/2021 Recurrent malignant neoplasm of right breast 11/2021 Overview (09/18/2022): Assessment: Right breast invasive ductal cancer stage I A ER positive W[place] positive Lumpectomy plus radiation followed by anastrozole for 5 years. Second right breast cancer, invasive ductal with lobular features-04/09/2021 Grade 1 ER positive W[place] positive HER2 0 Ki-67 15% Shows simple [...] 02/07/2021 Assessment & Plan (02/07/2021 10:19 AM GLAUCOMA SPECIALIST): Trial of famotidine. Abnormal mammogram of right [...] PM CDT): Advise to keep following with cushion assembler Assessment & Plan (08/31/2020 5:39 PM CDT): [...] meds. Assessment & Plan (02/07/2021 10:17 AM GLAUCOMA SPECIALIST): At baseline, cont current Rx meds. Assessment & Plan (08/31/2020 5:38 PM CDT): At baseline, cont current mgmt. Assessment & Plan (01/20/2020 12:54 PM GLAUCOMA SPECIALIST): Occasional wheezing. Patient home nebulizer machine broke according to the patient. New prescription sent for another home nebulizer. Uses directed. Assessment & Plan (10/20/2019 1:46 PM CDT): Clinically improved, continue current meds. DDD (degenerative disc disease), lumbar 05/10/19 Assessment & Plan (01/20/2020 12:57 PM GLAUCOMA SPECIALIST): Encouraged lxlxw-ht-garsbz exercises as tolerated. Managed by pain management. 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 Assessment & Plan (01/20/2020 12:56 PM GLAUCOMA SPECIALIST): He is asymptomatic. Continue current medications. Assessment [...] flonase. Assessment & Plan (02/07/2021 10:17 AM GLAUCOMA SPECIALIST): Asymptomatic. Stable. Continue current prescription medications. Assessment & Plan (01/20/2020 12:54 PM GLAUCOMA SPECIALIST): Stable. Cont. Current meds. Assessment & Plan [...] ENT Assessment & Plan (01/20/2020 12:55 PM GLAUCOMA SPECIALIST): Asymptomatic. Managed by ENT. Assessment & Plan (01/16/2019 1:05 PM GLAUCOMA SPECIALIST): Resolved. Assessment & Plan (08/05/2017 7:58 AM [...] with albuterol q6h prn, Rx sent. Keep sindey appt. If no improvement, will need an IN-PERSON visit at or nearest ER. Patient expressed an understanding. Assessment & Plan (01/16/2019 1:04 PM GLAUCOMA SPECIALIST): Stable, cont current meds. Assessment & Plan (06/01/2017 1:30 PM CDT): She needs diagnosis of asthma, she needs outpatient pulmonary function test and follow up with window clerk. Also recommend ENT consultation due to sinus [...] 11/26/2016 Assessment & Plan (01/20/2020 12:57 PM GLAUCOMA SPECIALIST): Stable. Managed by pain specialist. Assessment & Plan (10/20/2019 1:49 PM CDT): Managed by Pain specialists. Assessment & Plan (01/16/2019 1:05 PM GLAUCOMA SPECIALIST): Pain controlled. Diabetic peripheral neuropathy 11/26/2016 Assessment & Plan (08/30/2024 8:14 PM CDT): Assessment & Plan (11/10/2023 10:44 AM CDT): Chronic problem. Reviewed foot care; needs to lotion daily. Aware to check feet nightly, not to go barefoot. Assessment & Plan (04/07/2023 11:25 AM GLAUCOMA SPECIALIST): May be contributing to her balance issues, in addition to the fact that she recently broke her neck. Patient encouraged to be careful when trying to ambulate and ask for help when needed. Assessment & Plan (09/18/2022 7:31 PM CDT): Stable. Cont. Current prescription medications, gabapentin. Managed by Pain specialists. Assessment & Plan (01/20/2020 12:55 PM GLAUCOMA SPECIALIST): Asymptomatic. Managed by Endocrinology. Assessment & Plan (01/16/2019 1:06 PM GLAUCOMA SPECIALIST): Clinically improved. Assessment & Plan (06/22/2018 3:50 AM CDT): Patient follows with Dr. Fonseca and receives tramadol p.r.n.. Hold tramadol at this time as patient will be receiving Norcos. OA (osteoarthritis) 11/26/2016 Assessment & Plan (01/16/2019 1:05 PM GLAUCOMA SPECIALIST): On tramadol. Polymyalgia rheumatica 11/26/2016 Assessment & Plan (09/18/2022 7:31 PM CDT): Stable. Cont. Current prescription medications, Tramadol, gabapentin, managed by Pain Specialist. Assessment & Plan (01/20/2020 12:57 PM GLAUCOMA SPECIALIST): Stable. Managed by pain specialist. Assessment & Plan (10/20/2019 1:48 PM CDT): Managed by pain specialists. Assessment & Plan (01/16/2019 1:06 PM GLAUCOMA SPECIALIST): On tramadol. Hyperlipidemia associated with type 2 diabetes macie rosales 05/21/2016 Overview (11/26/2016): Hyperlipidemia Assessment & Plan (11/10/2023 10:17 AM CDT): Chronic problem, at goal on current Rosuvastatin 40mg. Last lipid panel: 10/16/23 LDL=58, FI=649. No changes at this time. Assessment & Plan (10/17/2023 8:00 PM CDT): Continue to limit fats in diet and take atorvastatin 80 mg daily Assessment & Plan (02/09/2023 11:41 AM GLAUCOMA SPECIALIST): - Rosuvastatin Assessment & Plan (12/15/2022 11:35 AM CDT): On statin therapy Tolerating well Assessment & Plan (09/18/2022 7:23 PM CDT): LDL at goal of less than 100, continue current prescription medications, rosuvastatin. Assessment & Plan (05/05/2022 11:55 AM GLAUCOMA SPECIALIST): Chronic problem, at goal on current Rosuvastatin 40mg. Last lipid panel: 09/09/21 LDL=63, IU=100. No changes at this time. Assessment & Plan (10/27/2021 5:57 PM CDT): LDL at goal of less than 100, continue current prescription medications. Assessment & Plan (09/09/2021 11:32 AM CDT): On statin therapy Tolerating well Assessment & Plan (03/25/2021 1:30 PM GLAUCOMA SPECIALIST): On statin therapy Tolerating well Assessment & Plan (02/07/2021 10:17 AM GLAUCOMA SPECIALIST): LDL at goal of < 70. Cont current Rx meds. Assessment & Plan (11/19/2020 3:49 PM CDT): On statin therapy Tolerating well Assessment & Plan (01/20/2020 12:53 PM GLAUCOMA SPECIALIST): Elevated. Low-cholesterol diet recommended. Continue current medications. Managed by Endocrinology. Assessment & Plan (10/20/2019 1:46 PM CDT): Low chol diet recommended. Cont current mgmt. Assessment & Plan (09/12/2019 10:29 PM CDT): On statin therapy Tolerating well Assessment & Plan (09/04/2018 5:13 PM CDT): On statin therapy Tolerating well Assessment & Plan (06/22/2018 3:47 AM CDT): Continue statin Assessment & Plan (04/27/2018 7:20 AM GLAUCOMA SPECIALIST): Lipid abnormalities are worsening. Nutritional counseling was provided. and Pharmacotherapy as ordered. Lipids will be reassessed in 6 months. Assessment & Plan (02/07/2018 11:18 PM GLAUCOMA SPECIALIST): Pt on statin therapy Tolerating well Assessment & Plan (10/10/2017 10:42 PM CDT): Lipid abnormalities are unchanged. Nutritional counseling was provided. and Pharmacotherapy as ordered. Lipids will be reassessed in 6 months. Assessment & Plan (03/21/2017 1:22 AM GLAUCOMA SPECIALIST): Currently on aspirin and statin will continue [...] Future Assessment & Plan (02/09/2024 8:32 PM GLAUCOMA SPECIALIST): eGFR 47 on 09/17/2023. Currently on lisinopril [...] exam Assessment & Plan (02/17/2023 3:04 PM GLAUCOMA SPECIALIST): - Home regimen: Novolog slide, insulin glargine [...] daughter to come to examination room from [facility]. She was not aware of which medications her mother was on either. Assessment & Plan (05/05/2022 11:56 AM GLAUCOMA SPECIALIST): Chronic problem, near goal. A1c slowly trending [...] months Assessment & Plan (03/25/2021 1:46 PM GLAUCOMA SPECIALIST): Chronic, uncontrolled, improving slowly A1c today 8.7% [...] meds. Assessment & Plan (01/20/2020 12:53 PM GLAUCOMA SPECIALIST): Uncontrolled. Managed by endocrinology. Patient encouraged to [...] months. Assessment & Plan (01/16/2019 1:03 PM GLAUCOMA SPECIALIST): Managed by endocrinology. Assessment & Plan (09/04/2018 [...] now , they plan to go to [facility] Reminded to bring in blood sugar diary at next visit. Dietary recommendations for ADA diet. Regular aerobic exercise. Discussed ways to avoid symptomatic hypoglycemia. Discussed sick day management. Discussed foot care. Reminded to get yearly retinal exam. Diabetes will be reassessed in 2 weeks . Assessment & Plan (04/27/2018 7:20 AM GLAUCOMA SPECIALIST): Diabetes is improving with treatment. - HbA1c [...] weeks. Assessment & Plan (02/07/2018 11:19 PM GLAUCOMA SPECIALIST): Diabetes is worsening. Recent HbA1c 12/2017 - [...] month. Assessment & Plan (01/07/2018 5:29 PM GLAUCOMA SPECIALIST): Diabetes is unchanged. Discussed foot care. Reminded to get yearly retinal exam. Keep sidney appt with new Tool Lathe Operator. Changed Levemir to Toujeo in an attempt to lower Rx costs for patient. Instructed her to take the forms for Levemir with her to her new Tool Lathe Operator it Toujeo was not more affordable. Assessment & Plan (10/10/2017 10:43 PM CDT): Diabetes is unchanged. Continue current treatment regimen. Reminded to bring in blood sugar diary at next visit. Dietary recommendations for ADA diet. Diabetes will be reassessed in 6 months. Assessment & Plan (03/21/2017 1:22 AM GLAUCOMA SPECIALIST): Poorly controlled type 2 diabetes insulin dependent [...] home. Assessment & Plan (05/05/2022 11:42 AM GLAUCOMA SPECIALIST): Chronic problem, well controlled on current carvedilol [...] appointment. Assessment & Plan (03/25/2021 1:30 PM GLAUCOMA SPECIALIST): Hypertension is improving with treatment. Continue current treatment regimen. Dietary sodium restriction. Regular aerobic exercise. Blood pressure will be reassessed at the next regular appointment. Assessment & Plan (02/07/2021 10:15 AM GLAUCOMA SPECIALIST): Clinically improved, continue current prescription medications. Assessment & Plan (11/19/2020 3:49 PM CDT): Hypertension is improving with treatment. Continue current treatment regimen. Dietary sodium restriction. Regular aerobic exercise. Blood pressure will be reassessed at the next regular appointment. Assessment & Plan (08/31/2020 5:37 PM CDT): BP remains within goal, keep sidney appt with cushion assembler. Cont current mgmt. Assessment & Plan (10/20/2019 [...] monitor. Assessment & Plan (04/27/2018 7:20 AM GLAUCOMA SPECIALIST): Hypertension is improving with treatment. Continue current treatment regimen. Dietary sodium restriction. Regular aerobic exercise. Blood pressure will be reassessed at the next regular appointment. Assessment & Plan (02/07/2018 11:18 PM GLAUCOMA SPECIALIST): Hypertension is chronic, well controlled for pt [...] appointment. Assessment & Plan (03/21/2017 1:23 AM GLAUCOMA SPECIALIST): Hypertension fairly controlled Will continue with home lisinopril Chronic diastolic congestive heart failure Assessment & Plan (09/18/2022 7:36 PM CDT): Patient and patient's daughter deny this condition. Reviewed most recent ECHO, results state normal left ventricular diastolic function. . Asked patient to re-establish care with cardiology. Patient is lost to follow up since her principal military analyst left town. Patient currently asymptomatic. Assessment & Plan (10/20/2019 1:48 PM CDT): At baseline, managed by cardiology. Nocturnal hypoxemia Esophageal dysmotilities Resolved Problems Problem Noted Date Diagnosed Date Resolved Date Discharge planning issues 02/09/2023 Assessment & Plan (02/17/2023 2:44 PM GLAUCOMA SPECIALIST): - 02/09 pending PT/OT, c spine xrays, [...] 11/10/2023 Assessment & Plan (05/05/2022 11:08 AM GLAUCOMA SPECIALIST): Discussed healthy diet and importance of regular physical activity (20- 30min/day, 150min/wk). 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 Assessment & Plan (03/25/2021 1:53 PM GLAUCOMA SPECIALIST): Advised to follow up with [employer] Pt has appt on apr 02 2021 Gave instructions for local wound care Acute hypoxemic respiratory failure 04/27/2019 10/20/2019 Acute lower respiratory tract infection 04/27/2019 07/01/2019 BMI 27.0-27.9,adult 01/14/2019 04/21/19 Assessment & Plan (11/18/2019 1:40 PM CDT): Healthy, low carbohydrate lifestyle and exercise Dizziness 01/14/2019 10/20/2019 Assessment & Plan (01/16/2019 1:03 PM GLAUCOMA SPECIALIST): May be secondary to anti-hypertensives. Decrease lisinopril [...] tolerated tramadol and has had prescriptions for [place] as in the past. Order patient [place] as p.r.n.. Patient recently had a STEMI in March and is currently on aspirin and Brilinta will have to avoid NSAIDs for now. Assessment & Plan (06/21/2018 12:56 PM CDT): Acute, Worsening, Pt needs I and D and IV antibiotics Pt going to ER now ( [facility] ) Acute pain of right knee 05/04/2018 Assessment & Plan (05/04/2018 3:09 PM GLAUCOMA SPECIALIST): Will obtain x-ray. Taking tylenol for pain. [...] 10/09/2017 Assessment & Plan (03/21/2017 1:26 AM GLAUCOMA SPECIALIST): The patient was started on the Rocephin [...] Type Department Care Team Description 09/06/2024 Telephone [facility] Primary Care at [address] [phone] Faith Hamm NP 08/31/2024 1:20 PM CDT - 08/31/2024 11:59 PM CDT Hospital Encounter [facility] [address] [place] [address] Pre-operative clearance Discharge Disposition: Discharge to home or self care 08/31/2024 1:18 PM CDT - 08/31/2024 11:59 PM CDT Hospital Encounter [facility] [address] [place] [address] Pre-operative clearance Discharge Disposition: Discharge to home or self care 08/31/2024 Results Follow-Up [facility] Emergency Department [address] [place] [address] Willie Rodríguez PA Urine culture Urine, indwelling catheter 08/31/2024 Results Follow-Up [facility] Primary Care at [address] [phone] Faith Hamm NP ECG 12 lead, XR Chest PA Lateral 2 Views 08/30/2024 11:30 AM CDT Office Visit [facility] Primary Care at [address] [phone] Faith Hamm NP Pre-operative clearance (Primary Dx); Diabetic peripheral neuropathy (HCC); Cellulitis of right lower extremity; Type 2 diabetes mellitus with stage 3a chronic kidney disease, with long-term current use of insulin (HCC) 08/30/2024 8:45 AM CDT Pre-Admission Testing [facility] Pre Anesthesia Testing [facility] [place] [id number] Preoperative testing (Primary Dx) 08/30/2024 Telephone [facility] Primary Care at [address] [phone] Faith Hamm NP Medical Question/Miscellaneous 08/30/2024 Telephone [facility] [address] [place] [address] [address] [place] [phone] Raysa Schmidt 08/29/2024 11:59 PM CDT Anesthesia Event [facility] Operating Room [address] [place] [phone] Nadya Bradley NP 08/29/2024 10:03 PM CDT - 08/29/2024 11:20 PM CDT Emergency [facility] Emergency Department [address] [place] [address] Jacob Monae MD Problem with Barone catheter, initial encounter (Primary Dx); Acute cystitis with hematuria Discharge Disposition: Discharge to home or self care 08/25/2024 Telephone [facility] Primary Care at [address] [phone] Faith Hamm NP Additional Services Or Orders 08/17/2024 Telephone [facility] Primary Care at [address] [phone] Faith Hamm NP Appointment Request 08/15/2024 Telephone [facility] Primary Care at [address] [place] [phone] Bertha Kelley MA 08/12/2024 4:35 PM CDT - 08/12/2024 11:59 PM CDT Hospital Encounter [facility] Emergency, Room R Discharge Disposition: Discharge to home or self care 08/09/2024 Results Follow-Up [facility] Primary Care at [address] [place] [address] Faith Hamm NP Comprehensive metabolic panel, CBC with auto differential, Sepsis Lactate w/ Reflex, Additional followed-up results: 57 08/04/2024 6:37 PM CDT - 08/12/2024 4:32 PM CDT Hospital Encounter [facility] Acute Medicine [address] [place] [address] Sara Hastings MD Petters, MD Little Perez Nazanin, MD Quaizar, Huzaifa, MD Cellulitis of right lower extremity (Primary Dx); Hyperglycemia; Hyponatremia; Degeneration of intervertebral disc of lumbar region, unspecified whether pain present; Diabetic peripheral neuropathy (HCC) Discharge Disposition: Discharge to [facility] 08/04/2024 2:00 PM CDT Orders Only [facility] [address] [place] [address] 07/29/2024 9:00 AM CDT Orders Only [facility] [address] [place] [address] PAD (peripheral artery disease) (Primary Dx); Multiple open wounds of left lower extremity, initial encounter 07/20/2024 9:00 AM CDT Orders Only [facility] [address] [place] [address] 07/13/2024 8:00 AM CDT Orders Only [facility] [address] [place] [address] Cellulitis of right lower extremity; Venous stasis ulcer of right calf limited to breakdown of skin without varicose veins (HCC); Type 2 diabetes mellitus with stage 3a chronic kidney disease, with long-term current use of insulin (HCC) 07/12/2024 3:19 PM CDT - 07/12/2024 11:59 PM CDT Hospital Encounter [facility] 2 [facility] [address] [place] [address] Thomas Washington MD Degeneration of intervertebral disc of lumbar region, unspecified whether pain present; Diabetic peripheral neuropathy (HCC) Discharge Disposition: Discharge to home or self care 07/06/2024 10:30 AM CDT Office Visit [facility] Primary Care at [address] [place] [address] Faith Hamm NP Cellulitis of right lower extremity (Primary Dx); Dependent edema; Venous stasis ulcer of right calf limited to breakdown of skin without varicose veins (HCC); Type 2 diabetes mellitus with stage 3a chronic kidney disease, with long-term current use of insulin (HCC) 07/04/2024 10:15 AM CDT Office Visit [facility] [address] [place] [address] Ronel Leung NP Leg swelling (Primary Dx); Dependent edema; Cellulitis of right lower extremity 07/04/2024 Nurse Triage [facility] Primary Care at [address] [place] [address] Faith Hamm NP 06/20/2024 Telephone [facility] [address] [place] [address] A, [facility] [address] [phone] Shameka Ray NP from Last 3 Months [...] attack (HCC) Coronary artery disease invo lving jamul coronary artery without angina pectoris 06/22/2018 Kidney [...] from doctor or pharmacy Never 03/11/2023 [facility] Utilities Answer Date Recorded In the past 12 months has th e [employer], oil, or water [employer] threatened to shut off services in your [...] How often do you attend chur or sikhism services? 1 to 4 times per year 08/05/2024 Do you belong to any clubs o r organizations such as sikhism groups, unions, [employer] or athletic groups, or school groups? Yes [...] on file Legal Sex Female 5:37 PM GLAUCOMA SPECIALIST Gender Identity Not on file Sexual Orientation [...] 08/30/2024 11:38 AM CDT Plan of Treatment Health Maintenance [...] Author [facility](03/2022 12:53 PM GLAUCOMA SPECIALIST) Betty Aiken, RN Note: Patient will establish a comfort-function goal and identify the pain level that will allow the patient to perform desired activities and achieve an acceptable quality of life. Medical Devices Implanted Type Area Indigo Vat Tender Cloth Device Identifier Shelf Expiration Date Model / Serial / Lot Bard Peripheral Vascular [id number] Ultraclip Bard 17ga 10cm 2 Trigger Permanent Ultrasound - [id number] - [id number] Implanted:Qty: 1 on 04/09/2021 by Thomas Davila MD at [facility] Breast Right: Breast [employer] 09/27/2023 [id number] / [id number] / [employer] [id number] Xience Bree 3mm 18mm Rapid Exchange System Coronary Stent - [id number] Implanted:Qty: 1 on 03/12/2018 by Jacob Mary MD at [facility] [employer] 12/06/2018 [id number] Procedures Procedure Name Priority Date/Time Associated Diagnosis [...] DIABETES EYE EXAM Routine 04/02/2023 9:12 AM GLAUCOMA SPECIALIST ALBUMIN CREATININE RATIO, URINE Routine 09/18/2022 12:53 [...] signed by Glynn FELDER: BRADFORD Report ID: [id number] Reading Location: [id number] Procedure Note Glynn Mosley MD - 09/01/2024 [...] signed by Glynn FELDER: BRADFORD Report ID: [id number] Reading Location: [id number] us Faith Hamm NP IMG XR PROCEDURES Final Resul t * ECG 12 lead (08/31/2024 1:38 PM CDT) 08/31/2024 1:28 PM CDT Narrative [facility] - 08/31/2024 2:17 PM CDT Vent Rate: 70 bpm RR Interval: 847 msec [place] Interval: 202 msec QRS Duration: 135 msec QT Interval: 421 msec QTC Interval: 442 msec P-R-T [place]: 36 - 95 - -27 degrees IMPRESSION: [...] By: Isaias Shafer MD us Faith Hamm TRIAGE LICENSED PRACTICAL NURSE ECG ORDERABLES Final Result Performing Organization Address City/[facility]/ZIP Co de Phone Number [facility] [employer]-transfection [facility] * eGFR (08/30/2024 10:30 AM [...] NP LAB BLOOD ORDERABLES Fi nal Result [facility] [address] Department [place] [address] * (ABNORMAL) Differential, auto (08/30/2024 10:30 AM CDT) Neutrophil abs 5.50 1.50 - 6.50 K/cumm Imm gran abs 0.03 0.00 - 0.10 K/cumm [facility] Lymphocyte abs 2.84 0.80 - 3.30 K/cumm [facility] Monocyte abs 0.88(H) 0.20 - 0.80 K/cumm [facility] Eosinophil abs 0.62(H) 0.00 - 0.50 K/cumm [facility] Basophil abs 0.04 0.00 - 0.10 K/cumm [facility] Neutrophil pct 55.4 % [facility] Comment: Interpretive Data Percent cell count reference ranges are not reported, since discordance with absolute values may lead to misinterpretation of CBC data. Current Interpretive Data was last revised on 2017. Imm gran pct 0.3 % [facility] Comment: Interpretive Data Percent cell count reference ranges are not reported, since discordance with absolute values may lead to misinterpretation of CBC data. Current Interpretive Data was last revised on 2017. Lymphocyte pct 28.7 % [facility] Comment: Interpretive Data Percent cell count reference ranges are not reported, since discordance with absolute values may lead to misinterpretation of CBC data. Current Interpretive Data was last revised on 2017. Monocyte pct 8.9 % [facility] Comment: Interpretive Data Percent cell count reference ranges are not reported, since discordance with absolute values may lead to misinterpretation of CBC data. Current Interpretive Data was last revised on 2017. Eosinophil pct 6.3 % [facility] Comment: Interpretive Data Percent cell count reference ranges are not reported, since discordance with absolute values may lead to misinterpretation of CBC data. Current Interpretive Data was last revised on 2017. Basophil pct 0.4 % [facility] Comment: Interpretive Data Percent cell count reference ranges are not reported, since discordance with absolute values may lead to misinterpretation of CBC data. Current Interpretive Data was last revised on 2017. Blood 08/30/2024 10:3 0 AM CDT 08/30/2024 10:34 AM CDT us Nadya Bradley TRIAGE LICENSED PRACTICAL NURSE LAB BLOOD ORDERABLES Fi nal Result Performing Organization Address [facility]/ZIP Co de Phone Number [facility] [address] [place] [place] [address] * (ABNORMAL) CBC with auto differential (08/30/2024 10:30 AM CDT) WBC 9.91(H) 3.80 - 9.90 K/cumm Hgb 11.4(L) 11.9 - 15.5 g/dL [facility] Hct 37.3 35.6 - 45.5 % [facility] Plt 223 150 - 400 K/cumm [facility] MPV 10.8 9.1 - 12.3 fL [facility] RBC 4.05 3.90 - 5.20 M/cumm [facility] MCV 92.1 81.3 - 96.4 fL [facility] MCH 28.1 27.1 - 33.3 pg [facility] MCHC 30.6(L) 32.3 - 35.7 g/dL [facility] RDW CV 14.2 11.1 - 14.9 % [facility] RDW SD 48.1 35.7 - 48.1 fL [facility] NRBC abs 0.00 0.00 - 0.01 K/cumm [facility] Blood 08/30/2024 10:3 0 AM CDT 08/30/2024 10:34 AM CDT us Nadya Bradley TRIAGE LICENSED PRACTICAL NURSE LAB BLOOD ORDERABLES Fi nal Result [facility] [address] [place] [place] [address] * (ABNORMAL) Hemoglobin A1c (08/30/2024 10:30 AM CDT) Hgb A1C 10.3(H) 4.0 - 5.6 % Estimated Average Glucose 249 mg/dL [facility] Comment: The ADA recommends reporting an estimated Average Glucose (eAG) with all Hemoglobin A1c results using the equation derived from a study of 507 normal and diabetic adults. Minority populations were underrepresented and children were not included. (Diabetes Care 31:4838-7685, 2008). The eAG is not equivalent to a fasting glucose. Blood 08/30/2024 10:3 0 AM CDT 08/30/2024 10:34 AM CDT us Nadya Bradley NP LAB BLOOD ORDERABLES Fi nal Result [facility] [address] Department [place] [address] * (ABNORMAL) Basic metabolic panel (08/30/2024 10:30 AM CDT) Sodium 141 135 - 145 mmol/L Potassium, pl 3.8 3.3 - 4.9 mmol/L [facility] Chloride 108 97 - 110 mmol/L [facility] CO2 21(L) 22 - 32 mmol/L [facility] Anion gap 12 2 - 15 mmol/L [facility] BUN 29(H) 6 - 25 mg/dL [facility] Creatinine 0.92 0.60 - 1.10 mg/dL [facility] Glucose 137 70 - 199 mg/dL [facility] Comment: Interpretive Data Fasting glucose >/= [...] 2022. Calcium 9.1 8.5 - 10.3 mg/dL [facility] Blood 08/30/2024 10:3 0 AM CDT 08/30/2024 10:33 AM CDT us Nadya Bradley NP LAB BLOOD ORDERABLES Fi nal Result Performing Organization Address City/[facility]/ZIP Co de Phone Number [facility] [address] Department [place] [address] * (ABNORMAL) Urinalysis reflex to microscopic and [...] uric acid stone formation. Source: [facility] [employer] Current Interpretive Data was last revised on [...] 10:22 PM CDT 08/29/2024 10:25 PM CDT us Jacob Monae MD LAB MICROBIOLOGY - GENERAL O RDERABLES Final Result Performing Organization Address City/State/[facility] Co de Phone Number [facility] ([place]) 1 [facility] [place] [address] * (ABNORMAL) Urinalysis, microscopic only (08/29/2024 10:22 [...] esult Performing Organization Address [facility] Co de Phone Number [facility] ([place]) 1 [facility] [place] [employer] [place] [address] * (ABNORMAL) Urine culture Urine, indwelling catheter (08/29/2024 10:22 PM CDT) Report Final Report: Greater than or equal to 100,000 colonies/mL of Enterobacter cloacae complex Greater than or equal to 100,000 colonies/mL of Citrobacter koseri (.) Comment:Testing performed by : [facility], [address] [facility] [place]., [address] Organism ENTEROBACTER CLOACAE COMPLEX [facility] ([place]) Organism CITROBACTER KOSERI [facility] ([place]) Urine, indwelling catheter 08/29/2024 10:22 PM CDT 08/30/2024 1:36 AM CDT Narrative [facility] ([place]) - 09/01/2024 12:28 PM CDT Urine culture reflexed based upon urinalysis results. Testing performed by [facility] Microbiology Laboratory ([phone]) Organism Antibiotic Method Susceptibility Enterobacter cloacae complex [...] - GENERAL O RDERABLES Final Result [facility] ([place]) 1 [facility] [employer] [place] [employer] [place] [address] * POCT glucose (08/12/2024 11:56 AM CDT) Glucose, POC 100 70 - 199 mg/dL Blood 08/12/2024 11:5 6 AM CDT 08/12/2024 11:56 AM CDT Marleen Robles MD LAB POCT ORDERABLES - DEVICE Final Result [facility] ([place]) 1 [facility] [place] [employer] [place] [address] * POCT glucose (08/12/2024 8:00 AM CDT) Glucose, POC 88 70 - 199 mg/dL Blood 08/12/2024 8:00 AM CDT 08/12/2024 8:00 AM CDT Marleen Robles MD LAB POCT ORDERABLES - DEVICE Final Result [facility] [place] ([place]) 1 [facility] Department [place] [employer] [place] [address] * (ABNORMAL) eGFR (08/12/2024 3:30 AM CDT) [...] BLOOD ORDERABLES Fi nal Result [facility] [place] ([place]) 1 [facility] [place] [employer] [place] [address] * (ABNORMAL) Differential, auto (08/12/2024 3:30 AM [...] Fi nal Result [facility] ([place]) 1 [facility] [employer] [place] [place] [address] * (ABNORMAL) CBC with auto differential (08/12/2024 [...] 14.3 11.1 - 14.9 % [facility] ([place]) RDW SD 46.1 35.7 - 48.1 fL [facility] ([place]) NRBC abs 0.00 0.00 - 0.01 K/cumm [facility] ([place]) Blood 08/12/2024 3:30 AM CDT 08/12/2024 5:17 AM CDT us Juan Sorto MD LAB BLOOD ORDERABLES Fi nal Result [facility] ([place]) 1 [facility] [employer] [place] [place] [address] * (ABNORMAL) Comprehensive metabolic panel (08/12/2024 3:30 [...] Fi nal Result [facility] ([place]) 1 [facility] Department [place] [address] * (ABNORMAL) POCT glucose (08/12/2024 2:43 AM CDT) Glucose, POC 224(H) 70 - 199 mg/dL Blood 08/12/2024 2:43 AM CDT 08/12/2024 2:43 AM CDT Marleen Robles MD LAB POCT ORDERABLES - DEVICE Final Result [facility] [place] ([place]) 1 [facility] [place] [employer] [place] [address] * (ABNORMAL) POCT glucose (08/11/2024 8:28 PM CDT) Glucose, POC 201(H) 70 - 199 mg/dL Blood 08/11/2024 8:28 PM CDT 08/11/2024 8:28 PM CDT Marleen Robles MD LAB POCT ORDERABLES - DEVICE Final Result Performing Organization Address City/[facility]/ZIP Co de Phone Number [facility] [place] ([place]) 1 [facility] [place] [employer] [place] [address] * POCT glucose (08/11/2024 4:43 PM CDT) Glucose, POC 123 70 - 199 mg/dL Blood 08/11/2024 4:43 PM CDT 08/11/2024 4:43 PM CDT Marleen Robles MD LAB POCT ORDERABLES - DEVICE Final Result Performing Organization Address City/[facility]/ZIP Co de Phone Number [facility] [place] ([place]) 1 [facility] [place] [employer] [place] [address] * POCT glucose (08/11/2024 11:19 AM CDT) Glucose, POC 144 70 - 199 mg/dL Blood 08/11/2024 11:1 9 AM CDT 08/11/2024 11:19 AM CDT us Marleen Robles MD LAB POCT ORDERABLES - DEVICE Final Result [facility] ([place]) 1 [facility] [place] [address] * POCT glucose (08/11/2024 7:55 AM CDT) Glucose, POC 120 70 - 199 mg/dL Blood 08/11/2024 7:55 AM CDT 08/11/2024 7:55 AM CDT Marleen Robles MD LAB POCT ORDERABLES - DEVICE Final Result Performing Organization Address City/[facility] Co de Phone Number [facility] [place] ([place]) 1 [facility] [place] [address] * (ABNORMAL) eGFR (08/11/2024 3:58 AM CDT) [...] BLOOD ORDERABLES Fi nal Result [facility] [place] ([place]) 1 [facility] [place] [address] * (ABNORMAL) Differential, auto (08/11/2024 3:58 AM CDT) Neutrophil abs 5.94 1.50 - 6.50 K/cumm Imm gran abs 0.14(H) 0.00 - 0.10 K/cumm [facility] ([place]) Lymphocyte abs 3.99(H) 0.80 - 3.30 K/cumm [facility] ([place]) Monocyte abs 0.79 0.20 - 0.80 K/cumm [facility] ([place]) Eosinophil abs 0.41 0.00 - 0.50 K/cumm [facility] ([place]) Basophil abs 0.06 0.00 - 0.10 K/cumm [facility] ([place]) Neutrophil pct 52.5 % [facility] ([place]) Comment: Interpretive Data Percent cell count reference [...] Fi nal Result [facility] ([place]) 1 [facility] [place] [address] * (ABNORMAL) CBC with auto differential (08/11/2024 [...] us Juan Sorto MD LAB BLOOD ORDERABLES [facility] Result [facility] ([place]) 1 [facility] [place] [address] * (ABNORMAL) Comprehensive metabolic panel (08/11/2024 3:58 [...] ([place]) ALT 38 7 - 45 Units/L [facility] ([place]) AST 37 10 - 45 Units/L [facility] ([place]) Blood 08/11/2024 3:58 AM CDT 08/11/2024 4:42 AM CDT Juan Sorto MD LAB BLOOD ORDERABLES Fi nal Result Performing Organization Address City/[facility]/ZIP Co de Phone Number [facility] ([place]) 1 [facility] [place] [place] [address] * POCT glucose (08/11/2024 3:01 AM CDT) Glucose, POC 155 70 - 199 mg/dL Blood 08/11/2024 3:01 AM CDT 08/11/2024 3:01 AM CDT Marleen Robles MD LAB POCT ORDERABLES - DEVICE Final Result Performing Organization Address City/[facility] Co de Phone Number [facility] ([place]) 1 [facility] [place] [address] * POCT glucose (08/10/2024 7:31 PM CDT) Glucose, POC 136 70 - 199 mg/dL Blood 08/10/2024 7:31 PM CDT 08/10/2024 7:31 PM CDT Marleen Robles MD LAB POCT ORDERABLES - DEVICE Final Result Performing Organization Address City/[facility]/ZIP Co de Phone Number [facility] ([place]) 1 [facility] [place] [place] [address] * POCT glucose (08/10/2024 3:55 PM CDT) Glucose, POC 121 70 - 199 mg/dL Blood 08/10/2024 3:55 PM CDT 08/10/2024 3:55 PM CDT Marleen Robles MD LAB POCT ORDERABLES - DEVICE Final Result [place] [place] 1 [facility] [place] [address] * POCT glucose (08/10/2024 11:57 AM CDT) Glucose, POC 180 70 - 199 mg/dL Blood 08/10/2024 11:5 7 AM CDT 08/10/2024 11:57 AM CDT Marleen Robles MD LAB POCT ORDERABLES - DEVICE Final Result [facility] ([place]) 1 [facility] [place] [place] [address] * POCT glucose (08/10/2024 7:23 AM CDT) Glucose, POC 161 70 - 199 mg/dL Blood 08/10/2024 7:23 AM CDT 08/10/2024 7:23 AM CDT Marleen Robles MD LAB POCT ORDERABLES - DEVICE Final Result [facility] ([place]) 1 [facility] [place] [address] * (ABNORMAL) eGFR (08/10/2024 3:05 AM CDT) [...] BLOOD ORDERABLES Fi nal Result [facility] ([place]) 1 [facility] [place] [address] * (ABNORMAL) Differential, auto (08/10/2024 3:05 AM [...] us Juan Sorto MD LAB BLOOD ORDERABLES [facility] Result [facility] ([place]) 1 [facility] [place] [address] * (ABNORMAL) CBC with auto differential (08/10/2024 3:05 AM CDT) WBC 11.70(H) 3.80 - 9.90 K/cumm Hgb 10.7(L) 11.9 - 15.5 g/dL [facility] ([place]) Hct 33.9(L) 35.6 - 45.5 % [facility] ([place]) Plt 317 150 - 400 K/cumm [facility] ([place]) MPV 9.6 9.1 - 12.3 fL [facility] ([place]) RBC 3.81(L) 3.90 - 5.20 M/cumm [facility] ([place]) MCV 89.0 81.3 - 96.4 fL [facility] MCH 28.1 27.1 - 33.3 pg [facility] MCHC 31.6(L) 32.3 - 35.7 g/dL [facility] RDW CV 14.2 11.1 - 14.9 % [facility] RDW SD 45.7 35.7 - 48.[address] [facility] ([place]) NRBC abs 0.00 0.00 - 0.01 K/cumm [facility] ([place]) Blood 08/10/2024 3:05 AM CDT 08/10/2024 3:36 AM CDT us Juan Sorto MD LAB BLOOD ORDERABLES nal Result [facility] ([place]) 1 [facility] [place] [address] * (ABNORMAL) Comprehensive metabolic panel (08/10/2024 3:05 AM CDT) Sodium 137 135 - 145 mmol/L Potassium, pl 5.0(H) 3.3 - 4.9 mmol/L [facility] Chloride 101 97 - 110 mmol/L [facility]) CO2 25 22 - 32 mmol/L [facility] Anion gap 11 2 - 15 mmol/L [facility] ([place]) BUN 39(H) 6 - 25 mg/dL [facility] Creatinine 1.04 0.60 - 1.10 mg/dL [facility] ([place]) Glucose 94 70 - 199 mg/dL [facility] ([place] Comment: Interpretive Data Fasting [...] 3:05 AM CDT 08/10/2024 3:41 AM CDT Juan Sorto MD LAB BLOOD ORDERABLES Fi nal Result [facility] ([place]) 1 [facility] [employer] [place] [place] [address] * POCT glucose (08/10/2024 3:00 AM CDT) Glucose, POC 106 70 - 199 mg/dL Blood 08/10/2024 3:00 AM CDT 08/10/2024 3:00 AM CDT Cony Fitch MD LAB POCT ORDERABLES - DEV ICE Final Result [facility] ([place]) 1 [facility] [employer] [place] [place] [address] * (ABNORMAL) POCT glucose (08/09/2024 9:21 PM CDT) Glucose, POC 232(H) 70 - 199 mg/dL Blood 08/09/2024 9:21 PM CDT 08/09/2024 9:21 PM CDT us Cony Fitch MD LAB POCT ORDERABLES - DEV ICE Final Result Performing Organization Address City/[facility] Co de Phone Number [facility] [place] ([place]) 1 [facility] [place] [address] * (ABNORMAL) POCT glucose (08/09/2024 4:23 PM CDT) Glucose, POC 200(H) 70 - 199 mg/dL Blood 08/09/2024 4:23 PM CDT 08/09/2024 4:23 PM CDT us Cony Fitch MD LAB POCT ORDERABLES - DEV ICE Final Result Performing Organization Address [facility] Co de Phone Number [facility] [place] ([place]) 1 [facility] [place] [address] * POCT glucose (08/09/2024 11:16 AM CDT) Glucose, POC 113 70 - 199 mg/dL Blood 08/09/2024 11:1 6 AM CDT 08/09/2024 11:16 AM CDT us Cony Fitch MD LAB POCT ORDERABLES - DEV ICE Final Result Performing Organization Address City/[facility] Co de Phone Number [facility] ([place]) 1 [facility] [place] [employer] [place] [address] * POCT glucose (08/09/2024 7:21 AM CDT) Glucose, POC 164 70 - 199 mg/dL Blood 08/09/2024 7:21 AM CDT 08/09/2024 7:21 AM CDT Cony Fitch MD LAB POCT ORDERABLES - DEV ICE Final Result [facility] ([place]) 1 [facility] [place] [address] * (ABNORMAL) eGFR (08/09/2024 3:40 AM CDT) [...] LAB BLOOD ORDERABLES Fi nal Result [place] [place] 1 [facility] [place] [address] * (ABNORMAL) Differential, auto (08/09/2024 3:40 AM [...] BLOOD ORDERABLES Fi nal Result [facility]Y [place] ([place]) 1 [facility] [place] [address] * (ABNORMAL) CBC with auto differential (08/09/2024 [...] NRBC abs 0.00 0.00 - 0.01 K/cumm [facility] Blood 08/09/2024 3:40 AM CDT 08/09/2024 4:15 AM CDT us Juan Sorto MD LAB BLOOD ORDERABLES Fi nal Result [facility] 1 [facility] [place] [address] * (ABNORMAL) Comprehensive metabolic panel (08/09/2024 3:40 AM CDT) Sodium 134(L) 135 - 145 mmol/L Potassium, pl 5.0(H) 3.3 - 4.9 mmol/L [facility] ([place] Chloride 99 97 - [...] MD LAB BLOOD ORDERABLES Fi nal Result [facility] ([place]) 1 [facility] Department of Laboratories [place], [place] [address] * (ABNORMAL) POCT glucose (08/09/2024 2:44 AM CDT) Pathologist [facility] Glucose, POC 202(H) 70 - 199 mg/dL Blood 08/09/2024 2:44 AM CDT 08/09/2024 2:44 AM CDT us Cony Fitch MD LAB POCT ORDERABLES - DEV ICE Final Result [facility] [place] ([place]) 1 [facility] [place] [address] * (ABNORMAL) POCT glucose (08/08/2024 7:50 PM CDT) Glucose, POC 324(H) 70 - 199 mg/dL Blood 08/08/2024 7:50 PM CDT 08/08/2024 7:50 PM CDT us Cony Fitch MD LAB POCT ORDERABLES - DEV ICE Final Result Performing Organization Address [facility] Co de Phone Number [facility] [place] ([place]) 1 [facility] [place] [address] * (ABNORMAL) POCT glucose (08/08/2024 4:23 PM CDT) Glucose, POC 249(H) 70 - 199 mg/dL Blood 08/08/2024 4:23 PM CDT 08/08/2024 4:23 PM CDT us Cony Fitch MD LAB POCT ORDERABLES - DEV ICE Final Result Performing Organization Address City/[facility] Co de Phone Number [facility] ([place]) 1 [facility] [place] [address] * (ABNORMAL) POCT glucose (08/08/2024 11:18 AM CDT) Glucose, POC 228(H) 70 - 199 mg/dL Blood 08/08/2024 11:1 8 AM CDT 08/08/2024 11:18 AM CDT Cony Fitch MD LAB POCT ORDERABLES - DEV ICE Final Result [facility] ([place]) 1 [facility] [place] [address] * POCT glucose (08/08/2024 7:24 AM CDT) Glucose, POC 157 70 - 199 mg/dL Blood 08/08/2024 7:24 AM CDT 08/08/2024 7:24 AM CDT us Cony Fitch MD LAB POCT ORDERABLES - DEV ICE Final Result Performing Organization Address City/[facility] Co de Phone Number [facility] [place] ([place]) 1 [facility] [place] [employer] [place] [address] * (ABNORMAL) eGFR (08/08/2024 3:58 AM CDT) [...] BLOOD ORDERABLES Fi nal Result [facility]Y [place] ([place]) 1 [facility] [place] [address] * (ABNORMAL) Differential, auto (08/08/2024 3:58 AM [...] Neutrophil pct 57.9 % [facility] ([place]) Comment: Interpretive Data Percent cell count reference ranges are not reported, since discordance with absolute values may lead to misinterpretation of CBC data. Current Interpretive Data was last revised on 2017. Imm gran pct 1.6 % [facility] ([place]) Comment: Interpretive Data Percent cell count reference [...] 3:58 AM CDT 08/08/2024 4:11 AM CDT Juan Sorto MD LAB BLOOD ORDERABLES Fi nal Result [facility] ([place]) 1 [facility] [place] [address] * (ABNORMAL) CBC with auto differential (08/08/2024 [...] 3:58 AM CDT 08/08/2024 4:11 AM CDT Ekanga Cooper Sorto MD LAB BLOOD ORDERABLES nal Result [facility] ([place]) 1 [facility] [place] [address] * (ABNORMAL) Comprehensive metabolic panel (08/08/2024 3:58 [...] BLOOD ORDERABLES Fi nal Result [facility] [place] ([place]) 1 [facility] [place] [employer] [place] [address] * POCT glucose (08/08/2024 1:52 AM CDT) Glucose, POC 190 70 - 199 mg/dL Blood 08/08/2024 1:52 AM CDT 08/08/2024 1:52 AM CDT us Cony Fitch MD LAB POCT ORDERABLES - DEV ICE Final Result Performing Organization Address City/[facility] Co de Phone Number [facility] [place] ([place]) 1 [facility] [place] [address] * (ABNORMAL) POCT glucose (08/07/2024 9:15 PM CDT) Glucose, POC 216(H) 70 - 199 mg/dL Blood 08/07/2024 9:15 PM CDT 08/07/2024 9:15 PM CDT us Cony Fitch MD LAB POCT ORDERABLES - DEV ICE Final Result Performing Organization Address City/[facility]/ZIP Co de Phone Number [facility]Y [facility] ([place]) 1 [facility] [place] [address] * (ABNORMAL) POCT glucose (08/07/2024 4:28 PM CDT) Glucose, POC 270(H) 70 - 199 mg/dL Comment:Glu2: RN/MD Notified Blood 08/07/2024 4:28 PM CDT 08/07/2024 4:28 PM CDT us Cony Fitch MD LAB POCT ORDERABLES - DEV ICE Final Result Performing Organization Address City/[facility] Co de Phone Number [place] 1 [facility] [place] [place] [address] * (ABNORMAL) POCT glucose (08/07/2024 11:36 AM CDT) Glucose, POC 300(H) 70 - 199 mg/dL Comment:Glu2: RN/MD Notified Blood 08/07/2024 11:3 6 AM CDT 08/07/2024 11:36 AM CDT us Cony Fitch MD LAB POCT ORDERABLES - DEV ICE Final Result Performing Organization Address [facility] Co de Phone Number [facility] [place] ([place]) 1 [facility] [place] [address] * (ABNORMAL) POCT glucose (08/07/2024 7:21 AM CDT) Glucose, POC 248(H) 70 - 199 mg/dL Blood 08/07/2024 7:21 AM CDT 08/07/2024 7:21 AM CDT us Cony Fitch MD LAB POCT ORDERABLES - DEV ICE Final Result Performing Organization Address City/[facility] Co de Phone Number [facility] [place] ([place]) 1 [facility] [place] [place] [address] * (ABNORMAL) eGFR (08/07/2024 2:51 AM CDT) [...] BLOOD ORDERABLES Fi nal Result [facility] ([place]) 1 [facility] [place] [address] * (ABNORMAL) Differential, auto (08/07/2024 2:51 AM [...] MD LAB BLOOD ORDERABLES Fi nal Result [facility] ([place] 1 [facility] [place] [address] * (ABNORMAL) CBC with auto differential (08/07/2024 2:51 AM CDT) WBC 14.25(H) 3.80 - 9.90 K/cumm Hgb 10.4(L) 11.9 - 15.5 g/dL [facility] ([place]) Hct 32.5(L) 35.6 - 45.5 % [facility] ([place]) Plt 296 150 - 400 K/cumm [facility] ([place]) MPV 9.9 9.1 - 12.3 fL [facility] ([place]) RBC 3.70(L) 3.90 - 5.20 M/cumm ST. [facility] ([place] MCV 87.8 81.3 - 96.[address] [facility] ([place] MCH 28.1 27.1 - 33.[address] [facility] ([place]) MCHC 32.0(L) 32.3 - 35.7 g/dL [facility] ([place]) RDW CV 13.8 11.1 - 14.9 % [facility] ([place]) RDW SD 44.0 35.7 - 48.[address] [facility] ([place]) NRBC abs 0.00 0.00 - 0.01 K/cumm [facility] ([place]) Blood 08/07/2024 2:51 AM CDT 08/07/2024 4:39 AM CDT us Juan Sorto MD LAB BLOOD ORDERABLES Fi nal Result [facility] ([place]) 1 [facility] [place] [address] * (ABNORMAL) Comprehensive metabolic panel (08/07/2024 2:51 AM CDT) Sodium 133(L) 135 - 145 mmol/L Potassium, pl 4.3 3.3 - 4.9 mmol/L [facility] ([place]) Chloride 99 97 - 110 mmol/L [facility] ([place]) CO2 24 22 - 32 mmol/L [facility] ([place]) Anion gap 10 2 - 15 mmol/L [facility] ([place]) BUN 29(H) 6 - 25 mg/dL [facility] ([place]) Creatinine 0.98 0.60 - 1.10 mg/dL [facility] ([place]) Glucose 255(H) 70 - 199 mg/dL [facility] ([place]) Comment: Interpretive Data Fasting glucose >/= [...] BLOOD ORDERABLES Fi nal Result [facility] ([place]) 1 [facility] [employer] [place] [address] * (ABNORMAL) POCT glucose (08/07/2024 2:11 AM CDT) Glucose, POC 293(H) 70 - 199 mg/dL Blood 08/07/2024 2:11 AM CDT 08/07/2024 2:11 AM CDT Cony Fitch MD LAB POCT ORDERABLES - DEV ICE Final Result [facility] ([place]) 1 [facility] [employer] [place] [address] * Vancomycin level random (08/06/2024 9:07 PM CDT) Vancomycin random 12.0 mcg/mL Comment: Interpretive Data No reference ranges have been established for random drug levels. Current Interpretive Data was last revised on 2020. Blood 08/06/2024 9:07 PM CDT 08/06/2024 9:11 PM CDT Cony Fitch MD LAB BLOOD ORDERABLES Kaylah l Result [facility] ([place]) 1 [facility] [place] [address] * (ABNORMAL) POCT glucose (08/06/2024 8:19 PM CDT) Glucose, POC 250(H) 70 - 199 mg/dL Blood 08/06/2024 8:19 PM CDT 08/06/2024 8:19 PM CDT Cony Fitch MD LAB POCT ORDERABLES - DEV ICE Final Result Performing Organization Address [facility] Co de Phone Number [facility] ([place]) 1 [place] [address] * (ABNORMAL) POCT glucose (08/06/2024 4:38 PM CDT) Glucose, POC 277(H) 70 - 199 mg/dL Blood 08/06/2024 4:38 PM CDT 08/06/2024 4:38 PM CDT Cony Fitch MD LAB POCT ORDERABLES - DEV ICE Final Result [facility] ([place]) 1 [facility] [place] [address] * (ABNORMAL) POCT glucose (08/06/2024 11:57 AM CDT) Glucose, POC 358(H) 70 - 199 mg/dL Blood 08/06/2024 11:5 7 AM CDT 08/06/2024 11:57 AM CDT us Cony Fitch MD LAB POCT ORDERABLES - DEV ICE Final Result [facility]) 1 [facility] [place] [address] * POCT glucose (08/06/2024 7:59 AM CDT) Glucose, POC 150 70 - 199 mg/dL Blood 08/06/2024 7:59 AM CDT 08/06/2024 7:59 AM CDT Cony Fitch MD LAB POCT ORDERABLES - DEV ICE Final Result Performing Organization Address [facility] de Phone Number [facility] ([place]) 1 [facility] [place] [place] [address] * (ABNORMAL) eGFR (08/06/2024 3:54 AM CDT) [...] BLOOD ORDERABLES Fi nal Result [facility] ([place]) 1 [facility] [place] [address] * (ABNORMAL) Differential, auto (08/06/2024 3:54 AM [...] Neutrophil pct 67.5 % [facility] ([place]) Comment: Interpretive Data Percent cell count reference [...] Fi nal Result [facility] ([place]) 1 [facility] [place] [address] * (ABNORMAL) CBC with auto differential (08/06/2024 [...] Fi nal Result [facility] ([place]) 1 [place] [address] * Magnesium (08/06/2024 3:54 AM CDT) Magnesium 1.6 1.4 - 2.5 mg/dL Blood 08/06/2024 3:54 AM CDT 08/06/2024 4:21 AM CDT Juan Sorto MD LAB BLOOD ORDERABLES Fi nal Result Performing Organization Address [facility] de Phone Number [facility] ([place]) 1 [place] [address] * (ABNORMAL) Comprehensive metabolic panel (08/06/2024 3:54 AM CDT) Sodium 137 135 - 145 mmol/L Potassium, pl 3.9 3.3 - 4.9 mmol/L [facility] Chloride 104 97 - 110 mmol/L [facility] ([place]) CO2 23 22 - 32 mmol/L [facility] ([place] Anion gap 10 2 - 15 mmol/L [facility] ([place]) BUN 26(H) 6 - [...] Fi nal Result [facility] ([place]) 1 [facility] [place] [address] * POCT glucose (08/06/2024 3:13 AM CDT) Glucose, POC 189 70 - 199 mg/dL Blood 08/06/2024 3:13 AM CDT 08/06/2024 3:13 AM CDT Cony Fitch MD LAB POCT ORDERABLES - DEV ICE Final Result Performing Organization Address City/[facility]/ZIP Co de Phone Number [facility] ([place] 1 [facility] [place] [address] * Vancomycin level random (08/05/2024 10:24 PM CDT) Vancomycin random 7.1 mcg/mL Comment: Interpretive Data No reference ranges have been established for random drug levels. Current Interpretive Data was last revised on 2020. Blood 08/05/2024 10:2 4 PM CDT 08/05/2024 10:27 PM CDT Cony Fitch MD LAB BLOOD ORDERABLES Kaylah l Result Performing Organization Address City/[facility]/ZIP Co de Phone Number [facility] ([place]) 1 [facility] [place] [address] * (ABNORMAL) POCT glucose (08/05/2024 7:49 PM CDT) Glucose, POC 266(H) 70 - 199 mg/dL Blood 08/05/2024 7:49 PM CDT 08/05/2024 7:49 PM CDT Cony Fitch MD LAB POCT ORDERABLES - DEV ICE Final Result Performing Organization Address [facility] Co de Phone Number [facility] ([place]) 1 [facility] [place] [address] * (ABNORMAL) POCT glucose (08/05/2024 4:41 PM CDT) Glucose, POC 223(H) 70 - 199 mg/dL Blood 08/05/2024 4:41 PM CDT 08/05/2024 4:41 PM CDT Cony Fitch MD LAB POCT ORDERABLES - DEV ICE Final Result Performing Organization Address City/[facility] Co de Phone Number [facility] ([place]) 1 [facility] [place] [address] * US Vein Duplex Lower Extremity Bilateral [...] Eduar Reza M.D. AR: KIMBERLY Report ID: [id number] Reading Location: [id number] Procedure Note Eduar Reza MD - 08/06/2024 [...] Eduar Reza M.D. AR: KIMBERLY Report ID: [id number] Reading Location: [id number] us Cony Fitch MD [facility] US PROCEDURES Final R esult * (ABNORMAL) POCT glucose (08/05/2024 11:43 AM CDT) Glucose, POC 243(H) 70 - 199 mg/dL Blood 08/05/2024 11:4 3 AM CDT 08/05/2024 11:43 AM CDT Cony Fitch MD LAB POCT ORDERABLES - DEV ICE Final Result Performing Organization Address City/[facility] Co de Phone Number [facility] ([place]) 1 [facility] [place] [address] * (ABNORMAL) POCT glucose (08/05/2024 9:38 AM CDT) Glucose, POC 397(H) 70 - 199 mg/dL Blood 08/05/2024 9:38 AM CDT 08/05/2024 9:38 AM CDT Cony Fitch MD LAB POCT ORDERABLES - DEV ICE Final Result Performing Organization Address [facility] Co de Phone Number [facility] ([place]) 1 [facility] [place] [address] * (ABNORMAL) POCT glucose (08/05/2024 7:27 AM CDT) Glucose, POC 329(H) 70 - 199 mg/dL Blood 08/05/2024 7:27 AM CDT 08/05/2024 7:27 AM CDT Cony Fitch MD LAB POCT ORDERABLES - DEV ICE Final Result Performing Organization Address City/[facility] Co de Phone Number [facility] ([place]) 1 [facility] [place] [address] * (ABNORMAL) POCT glucose (08/05/2024 4:09 AM CDT) Glucose, POC 275(H) 70 - 199 mg/dL Blood 08/05/2024 4:09 AM CDT 08/05/2024 4:09 AM CDT us Juan Sorto MD LAB POCT ORDERABLES - D EVICE Final Result Performing Organization Address City/[facility] Co de Phone Number [facility] ([place]) 1 [facility] [place] [place] [address] * (ABNORMAL) eGFR (08/05/2024 3:34 AM CDT) [...] Kaylah l Result [facility] ([place]) 1 [facility] [place] [place] [address] * (ABNORMAL) Differential, auto (08/05/2024 3:34 AM CDT) Neutrophil abs 12.87(H) 1.50 - 6.50 K/cumm Imm gran abs 0.10 0.00 - 0.10 K/cumm [facility] ([place]) Lymphocyte abs 0.89 0.80 - 3.30 K/cumm [...] Kaylah l Result [facility] ([place]) 1 [facility] [place] [address] * (ABNORMAL) CBC with auto differential (08/05/2024 [...] LAB BLOOD ORDERABLES Kaylah haq Result [facility] ([place]) 1 [facility] [place] [place] [address] * Magnesium (08/05/2024 3:34 AM CDT) Pathologist [facility] Magnesium 1.6 1.4 - 2.5 mg/dL Blood 08/05/2024 3:34 AM CDT 08/05/2024 3:45 AM CDT us Juan Sorto MD LAB BLOOD ORDERABLES Fi nal Result [facility] ([place]) 1 [facility] [place] [address] * (ABNORMAL) Comprehensive metabolic panel (08/05/2024 3:34 [...] ORDERABLES Kaylah l Result Performing Organization Address City/[facility]/ZIP Co de Phone Number [facility] ([place]) 1 [facility] [place] [address] * (ABNORMAL) POCT glucose (08/04/2024 11:07 PM CDT) Glucose, POC 278(H) 70 - 199 mg/dL Blood 08/04/2024 11:0 7 PM CDT 08/04/2024 11:07 PM CDT Juan Sorto MD LAB POCT ORDERABLES - D EVICE Final Result Performing Organization Address [facility] Co de Phone Number [facility] ([place]) 1 [facility] [place] [employer] [place] [address] * XR Foot Right 2 Views (08/04/2024 [...] signed by Delroy SARAVIA: MANJIT Report ID: [id number] Reading Location: [id number] Procedure Note Delroy Clemons MD - 08/04/2024 [...] Delroy Clemons M.D. KH: MANJIT Report ID: [id number] Reading Location: [id number] Juan Sorto MD IMG XR PROCEDURES Final [...] signed by Delroy SARAVIA: MANJIT Report ID: [id number] Reading Location: [place] [address] Procedure Note Delroy Clemons MD - 08/04/2024 [...] 11:04 PM - Electronically signed by Delroy Clemons M.D. KH: MANJIT Report ID: [id number] Reading Location: [place] [address] Juan Sorto MD IMG XR PROCEDURES Final Result * (ABNORMAL) Urinalysis reflex to microscopic and culture Urine (08/04/2024 9:45 PM CDT) Color, ur Straw Yellow Clarity, ur Clear Clear [facility] ([place]) Specific gravity, ur 1.009 1.003 - 1.030 [facility] ([place]) pH, urine 6.5 [facility] ([place]) Comment: Interpretive Data U rine pH is affected by diet, medications, systemic acid-base disturbances, and renal tubular function. pH may affect urinary stone formation. For example, urine pH below 6.0 may help reduce the tendency for calcium phosphate stones and pH greater than 6.0 may reduce the tendency for uric acid stone formation. Source: [facility] [employer] Current Interpretive Data was last revised on [...] Reflex to microscopic UA will be performed. [facility] Urine 08/04/2024 9:45 PM CDT 08/04/2024 9:49 PM CDT Sara Hastings MD LAB MICROBIOLOGY - GENERA L ORDERABLES Final Result Performing Organization Address [facility] Co de Phone Number [facility] ([place]) [address] [place] [address] [place] [place] [address] * (ABNORMAL) Urinalysis, microscopic only (08/04/2024 9:45 PM CDT) WBC, ur 11-20(A) 0 - 5 /HPF RBC, ur 0-2 0 - 2 /HPF [facility] ([place]) Epithelial cells, squamous, ur 1-5 0 - 5 /HPF [facility] ([place]) Bacteria, ur Trace(A) [facility] ([place]) Culture Reflex Comment Reflex to urine culture will be performed. [facility] ([place]) Urine 08/04/2024 9:45 PM CDT 08/04/2024 9:49 PM CDT Sara Hastings MD LAB URINE ORDERABLES Kaylah l Result [facility] ([place]) 1 [facility] [employer] [address] * Urine culture Urine (08/04/2024 9:45 PM CDT) Report Final Report: No growth Comment:Testing performed by : [facility], 1 [facility], [place]., [address] Urine 08/04/2024 9:45 PM CDT 08/05/2024 12:19 AM CDT Narrative [facility] ([place]) - 08/06/2024 6:24 AM CDT Urine culture reflexed based upon urinalysis results. Testing performed by [facility] Microbiology Laboratory ([phone]) us Sara Hastings MD LAB MICROBIOLOGY - GENERA L ORDERABLES Final Result [facility] ([place]) 1 [facility] [place] [place] [address] * (ABNORMAL) POCT glucose (08/04/2024 9:34 PM CDT) Glucose, POC 401(H) 70 - 199 mg/dL Blood 08/04/2024 9:34 PM CDT 08/04/2024 9:34 PM CDT us Juan Sorto MD LAB POCT ORDERABLES - D EVICE Final Result [facility] ([place]) [address] [place] [address] [place] [employer] [place] [address] * Blood culture Blood Peripheral (08/04/2024 8:32 PM CDT) Report Final Report: No growth Comment:Testing performed by : [facility], [address] [facility], [place]., [address] Blood (Peripheral) 08/04/2024 8:32 PM CDT 08/04/2024 10:19 PM CDT Narrative [facility] ([place]) - 08/09/2024 7:01 AM CDT From a [...] performance characteristics have been verified by the [facility]biology Laboratory. For questions about this culture, contact the Microbiology Laboratory at [phone]. Interpretive data was last revised on 23. Sara Hastings MD LAB MICROBIOLOGY - GENERA L ORDERABLES Final Result [facility] ([place]) 1 [facility] [place] [address] * Blood culture Blood Peripheral (08/04/2024 8:32 PM CDT) Report Final Report: No growth Comment:Testing performed by : [facility], 1 [facility] [place]., [address] Blood (Peripheral) 08/04/2024 8:32 PM CDT 08/04/2024 [...] performance characteristics have been verified by the [facility] Microbiology [facility]. For questions about this culture, contact the Microbiology Laboratory at [phone]. Interpretive data was last revised on 23. us Sara Hastings MD LAB MICROBIOLOGY - GENERA L ORDERABLES Final Result Performing Organization Address City/[facility]/ZIP Co de Phone Number [facility] ([place]) 1 [facility] [employer] [place] [place] [address] * Sepsis Lactate w/ Reflex (08/04/2024 7:17 PM CDT) [facility] Sepsis Lactate 1.3 0.7 - 2.0 mmol/L Blood 08/04/2024 7:17 PM CDT 08/04/2024 7:23 PM CDT Sara Hastings MD LAB BLOOD ORDERABLES Kaylah l Result [facility] ([place]) 1 [facility] [place] [place] [address] * (ABNORMAL) eGFR (08/04/2024 7:17 PM CDT) [facility] eGFR 52(L) >=60 mL/min/1. 73 m2 [...] LAB BLOOD ORDERABLES Kaylah haq Result [facility] ([place]) 1 [facility] [place] [address] * (ABNORMAL) Differential, auto (08/04/2024 7:17 PM CDT) Neutrophil abs 12.12(H) 1.50 - 6.50 K/cumm Imm gran abs 0.11(H) 0.00 - 0.10 K/cumm [facility] ([place]) Lymphocyte abs 1.99 0.80 - 3.30 K/cumm [facility] ([place]) Monocyte abs 1.04(H) 0.20 - 0.80 K/cumm [facility] ([place]) Eosinophil abs 0.05 0.00 - 0.50 K/cumm [facility] ([place]) Basophil abs 0.05 0.00 - 0.10 K/cumm [facility] ([place]) Neutrophil pct 78.9 % [facility] ([place]) Comment: Interpretive Data Percent cell count reference ranges are not reported, since discordance with absolute values may lead to misinterpretation of CBC data. Current Interpretive Data was last revised on 2017. Imm gran pct 0.7 % [facility] ([place]) Comment: Interpretive Data Percent cell count reference [...] BLOOD ORDERABLES Kaylah l Result [facility] ([place]) 1 [facility] [place] [address] * (ABNORMAL) CBC with auto differential (08/04/2024 7:17 PM CDT) WBC 15.36(H) 3.80 - 9.90 K/cumm Hgb 12.5 11.9 - 15.5 g/dL [facility] ([place]) Hct 38.8 35.6 - 45.5 % [facility] ([place]) Plt 310 150 - 400 K/cumm [facility] ([place]) MPV 9.7 9.1 - 12.3 fL [facility] ([place]) RBC 4.46 3.90 - 5.20 M/cumm [facility] ([place]) MCV 87.0 81.3 - 96.[address] [facility] ([place]) MCH 28.0 27.1 - 33.[address] [facility] ([place]) MCHC 32.2(L) 32.3 - 35.7 g/dL [facility] ([place]) RDW CV 13.5 11.1 - 14.9 % [facility] ([place]) RDW SD 42.5 35.7 - 48.[address] [facility] ([place]) NRBC abs 0.00 0.00 - 0.01 K/cumm [facility] ([place]) Blood 08/04/2024 7:17 PM CDT 08/04/2024 7:23 PM CDT us Sara Hastings MD LAB BLOOD ORDERABLES Kaylah l Result [facility] ([place]) 1 [facility] [place] [address] * (ABNORMAL) Comprehensive metabolic panel (08/04/2024 7:17 PM CDT) Sodium 131(L) 135 - 145 mmol/L Potassium, pl 4.5 3.3 - 4.9 mmol/L [facility] ([place]) Chloride 94(L) 97 - 110 mmol/L [facility] ([place]) CO2 22 22 - 32 mmol/L [facility] ([place]) Anion gap 16(H) 2 - 15 mmol/L [facility] ([place]) BUN 32(H) 6 - 25 mg/dL [facility] ([place]) Creatinine 1.03 0.60 - 1.10 mg/dL [facility] ([place]) Glucose 418(H) 70 - 199 mg/dL [facility] ([place]) Comment: Interpretive Data Fasting glucose >/= [...] MD LAB BLOOD ORDERABLES Kaylah haq Result [facility] ([place]) 1 [facility] [place] [address] * (ABNORMAL) Tissue aerobic and anaerobic culture and gram stain Tissue Leg, right (07/29/2024 10:10 AM CDT) Direct Specimen Exam Stain: No polymorphonuclear leukocytes seen. No organisms seen. Comment:Testing performed by : [facility], [address] [place] [address], [place]., [address] Report Final Report: Few Staphylococcus aureus Methicillin susceptible (MSSA) by penicillin binding protein 2a (PBP2a) testing. Few Mixed skin microorganisms. (.) [facility] ([place]) Comment:Testing performed by : [facility], [address] [place] [address], [place]., [address] Organism STAPHYLOCOCCUS AUREUS [facility] ([place]) Organism MIXED SKIN MICROORGANISMS. [facility] ([place]) Tissue (Leg, right) 07/29/2024 10:10 AM CDT 07/29/2024 6:09 PM CDT Narrative [facility] ([place]) - 08/03/2024 7:37 AM CDT Specimen received in a sterile container. Testing performed by [facility] Microbiology Laboratory ([phone]) Specimens submitted from normally sterile body sites [...] ORDERABLES Final Result [facility] ([place]) 1 [facility] [place] [address] * (ABNORMAL) Lipid panel (10/16/2023 2:36 PM [...] revised on 2017. Chol/HDL ratio 3 [facility] Blood 10/16/2023 2:36 PM CDT 10/16/2023 8:28 PM CDT Faith Hamm NP LAB BLOOD ORDERABLES Final Re sult [facility] [address] [facility] Department [place] [address] * (ABNORMAL) DIABETES EYE EXAM (04/02/2023 9:12 AM GLAUCOMA SPECIALIST) Historical Provider HEALTH MAINTENANCE Final Result * (ABNORMAL) Albumin Creatinine Ratio, Urine (09/18/2022 12:53 PM CDT) Albumin Ur 1,043.2 mg/L [facility] ([place]) Comment: Interpretive Data No reference range established. Current interpretive data was last revised 2018. Testing performed by: [facility], [address] [place] [address]., [address] Creatinine Ur 92.2 mg/dL [facility] ([place]) Comment: Interpretive Data No reference range established. Current interpretive data was last revised 2018. Testing performed by: [facility], [address] [place] [address]., [address] Albumin Creatinine Ratio, Ur 1,131(H) 1 - 29 mg/g [facility] ([place]) Comment:Testing performed by : [address] [address] Urine 09/18/2022 12:5 3 PM CDT 09/18/2022 7:11 PM CDT Natalia Vang DO LAB URINE ORDERABLES Final Result [facility] [place] 1 [facility] [place] [address] * Dexa Axial Skeleton Bone Density 1 or 2 Site (08/23/2020 12:03 PM CDT) Anatomical Region Laterality Modality Body N/A Other 08/23/2020 12:3 1 PM CDT Narrative 08/23/2020 12:33 PM CDT EXAM DESCRIPTION: DEXA AXIAL SKELETON BONE DENSITY 1 OR MORE SITES REASON FOR STUDY: Post-menopausal female, screening for osteoporosis. Indigo Vat Tender Cloth/Model: BearTail SL (S/N [id number]) CLINICAL INFORMATION: Current height: 64 inches Maximum [...] by Thomas Davila M.D. AB: Report ID: [id number] Reading Location: [id number] Procedure Note Thomas Davila MD - 08/23/2020 EXAM DESCRIPTION: DEXA AXIAL SKELETON BONE DENSITY 1 OR MORE SITES REASON FOR STUDY: Post-menopausal female, screening for osteoporosis. Indigo Vat Tender Cloth/Model: BonzerDarg Discovery SL (S/N [id number]) CLINICAL INFORMATION: Current height: 64 inches Maximum [...] by Thomas Davila M.D. AB: Report ID: [id number] Reading Location: [place] [address] Natalia Vang DO IMG DXA PROCEDURES Final R esult * DIABETES FOOT EXAM (07/22/2017) [facility] Diabetic Foot Exam Unknown Historical Provider HEALTH MAINTENANCE Final Result from Last 3 Months or Most Recently Relevant to Health Maintenance Insurance [facility] MEDICARE ADVANTAGE IDPA [facility] MEDICARE ADVANTAGE Advance Directives For more information, please contact: [phone] * Full Code (Latest Code Status on [...] 5:31 PM 05/08/2021 5:50 PM Care Teams Wash Oil Pump Operator Helper Relationship Specialty Start Date End Date Faith Hamm NP [address] [facility] [address] [place] [address] PCP - General Family Medicine 10/16/23 [place] [address] [address] [address] Consulting Physician Endocrinology 03/29/18 [place] [address] [address] Consulting Physician Nephrology 02/27/21 Thomas Ordoñez MD [address] [facility], [address] [address] Consulting Physician Medical Oncology 05/22/21 Joseph Mccullough MD [address] [place] [address] [address] Consulting Physician Gastroenterology 03/19/23
--- OUTSIDE RECORDS SUMMARY | 2024-09-07 12:03 | XMS_ITS | Encounter Summary ---
Author Organization [facility] Healthcare Address [address] [place] [address] Care Team Providers Care Anesthesiologist Physician Name Role Phone Naun Georges MD Unavailable [phone] Di Demarco MD Unavailable [phone] Thomas Ordoñez MD Unavailable Joseph Mccullough MD Unavailable [phone] Faith Hamm NP Primary Care Provider [phone] Encounter Details Date Type Department Care Team (Latest Contact Info) Description 08/09/2024 Results Follow-Up [facility] Medical Group Primary Care at [address] [place] [address] Faith Hamm, VP INTEGRATION [address] [place] [address] [address] [place] [address] Comprehensive metabolic panel, CBC with [...] materials from doctor or pharmacy Never 03/11/2023 [facility] Utilities Answer Date Recorded In the [...] often do you attend chur ch or hindu services? 1 to 4 times per year 08/05/2024 Do you belong to any clubs o r organizations such as confucianist groups, unions, fraternal or athletic groups, or [...] in a half-way (including now)? No 04/13/2023 PHQ-9 Answer Date [...] were you homeless or living in a half-way (including now)? 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 Author BH-Pain Behavioral Health Improving(03/2022 12:53 PM SOLE CONDITIONER) No Betty Elizabeth, RN Note: Patient will establish a comfort-function goal and identify the pain level that will allow the patient to perform desired activities and achieve an acceptable quality of life. documented as of this encounter Visit Diagnoses Not on filedocumented in this encounter Care Teams Anesthesiologist Physician Relationship Specialty Start Date End Date Faith Hamm NP [address] [facility] [address] [place] [address] PCP - General Family Medicine 10/16/23 [place] [address] [address] [address] Consulting Physician Endocrinology 03/29/18 [place] [address] [address] Consulting Physician Nephrology 02/27/21 Thomas Ordoñez MD [address] [facility] MEDICAL ONCOLOGY, [facility] [address] [place] [address] Consulting Physician Medical Oncology 05/22/21 Joseph Mccullough MD [address] [place] [address] [address] [place] [address] Consulting Physician Gastroenterology 03/19/23 documented as of this encounter
--- OUTSIDE RECORDS SUMMARY | 2024-09-07 12:03 | XMS_ITS | Encounter Summary ---
Author Organization [facility] Healthcare Address [address] [place] [address] Care Team Providers Care Mold Sander Name Role Phone Naun Georges MD Unavailable [phone] Di Demarco MD Unavailable [phone] Thomas Ordoñez MD Unavailable Joseph Mccullough MD Unavailable [phone] Faith Hamm NP Primary Care Provider Encounter Details Date Type Department Care Team (Late st Contact Info) Description 08/31/2024 Results Follow-Up [facility] Medical Group Primary Care at [address] [place] [address] Faith Hamm COMMUNITY HEALTH REPRESENTATIVE [address] [place] [address] [address] [place] [id number] ECG 12 lead, XR Chest PA Lateral 2 Views Social History Tobacco Use Types Packs/Day Years [...] materials from doctor or pharmacy Never 03/11/2023 [facility] Utilities Answer Date Recorded In the [...] any clubs o r organizations such as gnosticist groups, unions, fraternal or athletic groups, or [...] place to sleep or slept in a nursing home (including now)? No 04/13/2023 PHQ-9 Answer [...] any time in the past 12 m [facility], were you homeless or living in a nursing home (including now)? 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 documented as of this encounter Visit Diagnoses Not on filedocumented in this encounter Care Teams Mold Sander Relationship Specialty Start Date End Date Faith Hamm NP [address] [facility] [address] [place] [address] PCP - General Family Medicine 10/16/23 [place] [address] [facility] [facility] [address] [place] [address] Consulting Physician Endocrinology 03/29/18 [place] [address] [facility] [address] [place] [address] Consulting Physician Nephrology 02/27/21 Thomas Ordoñez MD [address] [facility] MEDICAL ONCOLOGY, [facility] [address] [place], [place] [address] Consulting Physician Medical Oncology 05/22/21 Joseph Mccullough MD [address] [place] [address] [facility] [address] [place] [address] Consulting Physician Gastroenterology 03/19/23 documented as of this encounter
--- OUTSIDE RECORDS SUMMARY | 2024-09-07 12:03 | XMS_ITS | Encounter Summary ---
Author Organization [facility] Healthcare Address [address] [place] [address] Care Team Providers Care Service Parts Coordinator Name Role Phone Devaughn Bazan DO Unavailable [phone] Natalia Vang DO Primary Care Provider [phone] Naun Georges MD Unavailable [phone] Frankie Bright MD Unavailable [phone] Di Demarco MD Unavailable [phone] Thomas Ordoñez MD Unavailable Anne Marie Platt [facility] [facility] Unavailable [phone] Naun Georges MD Unavailable [phone] Mendez Shine RN Unavailable [phone] Joseph Mccullough MD Unavailable [phone] Faith Hamm NP Primary Care Provider [phone] Encounter Details Date Type Department Care Team (Late st Contact Info) Description 03/26/2021 Telephone [facility] [address] [place] [address] Radha Miller, RN Social History Tobacco Use [...] file 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 Author BH-Pain Behavioral Health Improving(03/2022 12:53 PM INDUSTRIAL TECHNOLOGIST) No Betty Elizabeth, CIRA Note: Patient will establish a comfort-function goal and identify the pain level that will allow the patient to perform desired activities and achieve an acceptable quality of life. documented as of this encounter Visit Diagnoses Not on filedocumented in this encounter Additional Health Concerns Infection Onset Date Last Indicated Resolved Time COVID: Suspected 05/03/2021 05/03/2021 05/04/2021 3:05 AM INDUSTRIAL TECHNOLOGIST COVID: Suspected 05/03/2021 05/03/2021 05/04/2021 7:39 PM INDUSTRIAL TECHNOLOGIST COVID: Suspected 12/30/2022 12/30/2022 12/30/2022 10:47 AM CDT documented as of this encounter Care Teams Service Parts Coordinator Relationship Specialty Start Date End Date Natalia Vang DO PCP - General Family Medicine 10/09/17 10/15/23 Faith Hamm NP [address] [facility] [address] [place] [address] PCP - General Family Medicine 10/16/23 Devaughn Bazan DO Surgeon Otolaryngology 03/26/17 11/09/23 [place] [address] [address] [place] [address] Consulting Physician Endocrinology 03/29/18 [place] [address] [address] Anesthesiologist Pain Management 10/20/19 11/09/23 [place] [address] [address] Consulting Physician Nephrology 02/27/21 Thomas Ordoñez MD [address] [facility] MEDICAL ONCOLOGY[address] [address] Consulting Physician Medical Oncology 05/22/21 Anne Marie Platt, [address] [address] Pharmacist Pharmacy 08/23/21 08/25/21 [place] [address] [address] Consulting Physician Endocrinology 12/15/22 11/09/23 Mendez Shine RN [address] [place] [address] [address] Tire Recapper 03/06/23 04/12/23 Joseph Mccullough MD [address] [place] [address] [address] Consulting Physician Gastroenterology 03/19/23 documented as of this encounter
--- OUTSIDE RECORDS SUMMARY | 2024-09-07 12:03 | XMS_ITS | Encounter Summary ---
Author Organization [facility] Healthcare Address [address] [place] [address] Care Team Providers Care Metal Or Wood Blocker Name Role Phone Naun Georges MD Unavailable [phone] Di Demarco MD Unavailable [phone] Thomas Ordoñez MD Unavailable Joseph Mccullough MD Unavailable [phone] Faith Hamm NP Primary Care Provider [phone] Reason for Visit * Reason Onset Date Comments Appointment Request 08/17/2024 Encounter Details Date Type Department Care Team (Late st Contact Info) Description 08/17/2024 Telephone [facility] Medical Group Primary Care at [address] [place] [address] Faith Hamm NP [address] [place] [address] [address] [place] [address] Appointment Request Social History Tobacco [...] materials from doctor or pharmacy Never 03/11/2023 [facility] Utilities Answer Date Recorded In [...] you attend chur ch or latter-day services? 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 I called Faith's daughter Soraya but no [...] care team offered (e.g., nurse practioner(s), physician life science research assistant(s)) ? N/A Additional Comments: None Does message need to be routed? Yes-Action Needed documented in this encounter Plan of Treatment Not on file documented as of this encounter Goals Goal Patient Goal Type Associated Problems Recent Progress Patient-Stated? Author BH-Pain Behavioral Health Improving(03/2022 12:53 PM POWERHOUSE ELECTRICIAN) Betty Aiken, CIRA Note: Patient will establish a comfort-function goal and identify the pain level that will allow the patient to perform desired activities and achieve an acceptable quality of life. documented as of this encounter Visit Diagnoses Not on filedocumented in this encounter Care Teams Metal Or Wood Blocker Relationship Specialty Start Date End Date Faith Hamm NP [address] [place] [address] PCP - General Family Medicine 10/16/23 [place] [address] [address] [place] [address] Consulting Physician Endocrinology 03/29/18 [place] [address] [address] [address] Consulting Physician Nephrology 02/27/21 Thomas Ordoñez MD [address] [facility] MEDICAL ONCOLOGY, [address] [address] Consulting Physician Medical Oncology 05/22/21 Joseph Mccullough MD [address] [place] [address] Consulting Physician Gastroenterology 03/19/23 documented as of this encounter
--- OUTSIDE RECORDS SUMMARY | 2024-09-07 12:03 | XMS_ITS | Encounter Summary ---
Author Organization [facility] Healthcare Address [address] [place] [address] Care Team Providers Care Bath House Attendant Name Role Phone Naun Georges MD Unavailable [phone] Di Demarco MD Unavailable [phone] Thomas Ordoñez MD Unavailable Joseph Mccullough MD Unavailable [phone] Faith Hamm NP Primary Care Provider [phone] Encounter Details Date Type Department Care Team (Late st Contact Info) Description 08/31/2024 Results Follow-Up [facility] Emergency Department [address] [place] [address] Willie Rodríguez PA [address] [facility] [place] [address] Urine culture Urine, indwelling catheter Social History [...] materials from doctor or pharmacy Never 03/11/2023 [facility] Utilities Answer Date Recorded In [...] often do you attend chur ch or holiness services? 1 to 4 times per year 08/05/2024 Do you belong to any clubs o r organizations such as taoist groups, unions, fraternal or athletic groups, or [...] place to sleep or slept in a penitentiary (including now)? No 04/13/2023 PHQ-9 Answer Date [...] any time in the past 12 m [facility], were you homeless or living in a penitentiary (including now)? 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 Yes Additional Comments If YES above and TRANSFER COORDINATOR placed on hold by practice. * Result Encounter Note - Rachana Trivedi [...] Author BH-Pain Behavioral Health Improving(03/2022 12:53 PM JACQUARD LOOM FIXER) No Betty Elizabeth RN Note: Patient will establish a comfort-function goal and identify the pain level that will allow the patient to perform desired activities and achieve an acceptable quality of life. documented as of this encounter Visit Diagnoses Not on filedocumented in this encounter Care Teams Bath House Attendant Relationship Specialty Start Date End Date Faith Hamm NP [address] [facility] [address] [place] [address] PCP - General Family Medicine 10/16/23 [place] [address] [address] [address] Consulting Physician Endocrinology 03/29/18 [place] [address] [address] [address] Consulting Physician Nephrology 02/27/21 Thomas Ordoñez MD [address] [facility] MEDICAL ONCOLOGY, [address] [place] [address] Consulting Physician Medical Oncology 05/22/21 Joseph Mccullough MD [address] [place] [address] Consulting Physician Gastroenterology 03/19/23 documented as of this encounter
--- OUTSIDE RECORDS SUMMARY | 2024-09-07 12:03 | XMS_ITS ---
Author Organization [facility] Address [address] [place] [address] Care Team Providers Care Spine Supervisor Name Role Phone Naun Georges MD Unavailable [phone] Di Demarco MD Unavailable [phone] Thomas Ordoñez MD Unavailable Joseph Mccullough MD Unavailable [phone] Faith Hamm NP Primary Care Provider [phone] Active Problems Problem Noted Date Diagnosed Date [...] 01/01 Assessment & Plan (01/20/2024 8:47 PM MC KAY MACHINE OPERATOR): Annual Medicare wellness exam completed today. [...] 04/09/2023 Assessment & Plan (04/09/2023 4:00 PM MC KAY MACHINE OPERATOR): Due to patient's current condition of odontoid fracture, and the fact that she has in a neck brace, she has increased risk for balance issues and falling. Patient would benefit from home physical therapy/occupational therapy. Both of these services were ordered during patient's hospital discharge planning. Dependent edema 04/07/2023 Assessment & Plan (07/06/2024 7:00 PM CDT): Assessment & Plan (04/08/2023 10:01 AM MC KAY MACHINE OPERATOR): Trial of low-dose furosemide. Encouraged use of compression stocking, elevated legs above heart when possible. Follow advise of PT/OT. H/O gastrointestinal hemorrhage 03/13/2023 Right adrenal mass 02/10/2023 Assessment & Plan (02/12/2023 1:47 PM MC KAY MACHINE OPERATOR): #Indeterminate hypoattenuating lesion within the left [...] 2022 Assessment & Plan (04/08/2023 10:00 AM MC KAY MACHINE OPERATOR): Slowly improving, currently in a neck brace. Keep sidney appts with specialists. Assessment & Plan (02/16/2023 12:26 PM MC KAY MACHINE OPERATOR): # C2 type II odontoid fracture with epidural hematoma - NSGY Spine consult (Dr. Rodriguez) - CTA head/neck - no evidence of vascular injuries - Pain control - [place] at all times - Q4H NCs [...] the cervical spine -- Continue to wear [place] brace at all times Closed fracture of spinous process of thoracic v ertebra 02/09/2023 Assessment & Plan (02/09/2023 11:52 AM MC KAY MACHINE OPERATOR): T4 spinous process fx - PT/OT - Pain control At risk for inadequate oral intake 02/09/2023 Assessment & Plan (02/10/2023 1:33 PM MC KAY MACHINE OPERATOR): - Patient reports having poor intake due to throat pain/[place] - Supplements ordered - 02/10 re-educated patient on goal of at least 1 Ensure per mealtime Other closed displaced odontoid fracture, initia l encounter 02/08/2023 Ductal carcinoma of breast, right 04/11/2021 Recurrent malignant neoplasm of right breast 11/2021 Overview (09/18/2022): Assessment: Right breast invasive ductal cancer stage I A ER positive TN positive Lumpectomy plus radiation followed by anastrozole for 5 years. Second right breast cancer, invasive ductal with lobular features-04/09/2021 Grade 1 ER positive TN positive HER2 0 Ki-67 15% Shows simple [...] 02/07/2021 Assessment & Plan (02/07/2021 10:19 AM MC KAY MACHINE OPERATOR): Trial of famotidine. Abnormal mammogram of [...] PM CDT): Advise to keep following with license examiner Assessment & Plan (08/31/2020 5:39 PM CDT): [...] meds. Assessment & Plan (02/07/2021 10:17 AM MC KAY MACHINE OPERATOR): At baseline, cont current Rx meds. Assessment & Plan (08/31/2020 5:38 PM CDT): At baseline, cont current mgmt. Assessment & Plan (01/20/2020 12:54 PM MC KAY MACHINE OPERATOR): Occasional wheezing. Patient home nebulizer machine broke according to the patient. New prescription sent for another home nebulizer. Uses directed. Assessment & Plan (10/20/2019 1:46 PM CDT): Clinically improved, continue current meds. DDD (degenerative disc disease), lumbar 05/10/19 Assessment & Plan (01/20/2020 12:57 PM MC KAY MACHINE OPERATOR): Encouraged jsabp-bz-cyetlq exercises as tolerated. Managed by pain management. Chronic left hip pain 05/10/2019 shelter (current) use of opiate analgesic 01/30 History of coronary angioplasty with insertion o f stent 01/16/2019 Assessment & Plan (10/17/2023 7:59 PM CDT): Followed by cardiology Coronary artery disease of n ative artery of [place] heart with stable angina pectoris 06/22/2018 Assessment & Plan (02/17/2023 11:06 AM MC KAY MACHINE OPERATOR): # CAD # Hypertension - ASA [...] medications. Assessment & Plan (01/20/2020 12:56 PM MC KAY MACHINE OPERATOR): He is asymptomatic. Continue current medications. [...] flonase. Assessment & Plan (02/07/2021 10:17 AM MC KAY MACHINE OPERATOR): Asymptomatic. Stable. Continue current prescription medications. Assessment & Plan (01/20/2020 12:54 PM MC KAY MACHINE OPERATOR): Stable. Cont. Current meds. Assessment & [...] ENT Assessment & Plan (01/20/2020 12:55 PM MC KAY MACHINE OPERATOR): Asymptomatic. Managed by ENT. Assessment & Plan (01/16/2019 1:05 PM MC KAY MACHINE OPERATOR): Resolved. Assessment & Plan (08/05/2017 7:58 [...] understanding. Assessment & Plan (01/16/2019 1:04 PM MC KAY MACHINE OPERATOR): Stable, cont current meds. Assessment & Plan (06/01/2017 1:30 PM CDT): She needs diagnosis of asthma, she needs outpatient pulmonary function test and follow up with wood filler. Also recommend ENT consultation due to sinus [...] 11/26/2016 Assessment & Plan (01/20/2020 12:57 PM MC KAY MACHINE OPERATOR): Stable. Managed by pain specialist. Assessment & Plan (10/20/2019 1:49 PM CDT): Managed by Pain specialists. Assessment & Plan (01/16/2019 1:05 PM MC KAY MACHINE OPERATOR): Pain controlled. Diabetic peripheral neuropathy 11/26/2016 Assessment & Plan (08/30/2024 8:14 PM CDT): Assessment & Plan (11/10/2023 10:44 AM CDT): Chronic problem. Reviewed foot care; needs to lotion daily. Aware to check feet nightly, not to go barefoot. Assessment & Plan (04/07/2023 11:25 AM MC KAY MACHINE OPERATOR): May be contributing to her balance issues, in addition to the fact that she recently broke her neck. Patient encouraged to be careful when trying to ambulate and ask for help when needed. Assessment & Plan (09/18/2022 7:31 PM CDT): Stable. Cont. Current prescription medications, gabapentin. Managed by Pain specialists. Assessment & Plan (01/20/2020 12:55 PM MC KAY MACHINE OPERATOR): Asymptomatic. Managed by Endocrinology. Assessment & Plan (01/16/2019 1:06 PM MC KAY MACHINE OPERATOR): Clinically improved. Assessment & Plan (06/22/2018 3:50 AM CDT): Patient follows with Dr. Fonseca and receives tramadol p.r.n.. Hold tramadol at this time as patient will be receiving Norcos. OA (osteoarthritis) 11/26/2016 Assessment & Plan (01/16/2019 1:05 PM MC KAY MACHINE OPERATOR): On tramadol. Polymyalgia rheumatica 11/26/2016 Assessment & Plan (09/18/2022 7:31 PM CDT): Stable. Cont. Current prescription medications, Tramadol, gabapentin, managed by Pain Specialist. Assessment & Plan (01/20/2020 12:57 PM MC KAY MACHINE OPERATOR): Stable. Managed by pain specialist. Assessment & Plan (10/20/2019 1:48 PM CDT): Managed by pain specialists. Assessment & Plan (01/16/2019 1:06 PM MC KAY MACHINE OPERATOR): On tramadol. Hyperlipidemia associated with type 2 diabetes macie rosales 05/21/2016 Overview (11/26/2016): Hyperlipidemia Assessment & Plan (11/10/2023 10:17 AM CDT): Chronic problem, at goal on current Rosuvastatin 40mg. Last lipid panel: 10/16/23 LDL=58, DA=021. No changes at this time. Assessment & Plan (10/17/2023 8:00 PM CDT): Continue to limit fats in diet and take atorvastatin 80 mg daily Assessment & Plan (02/09/2023 11:41 AM MC KAY MACHINE OPERATOR): - Rosuvastatin Assessment & Plan (12/15/2022 11:35 AM CDT): On statin therapy Tolerating well Assessment & Plan (09/18/2022 7:23 PM CDT): LDL at goal of less than 100, continue current prescription medications, rosuvastatin. Assessment & Plan (05/05/2022 11:55 AM MC KAY MACHINE OPERATOR): Chronic problem, at goal on current Rosuvastatin 40mg. Last lipid panel: 09/09/21 LDL=63, HF=278. No changes at this time. Assessment & Plan (10/27/2021 5:57 PM CDT): LDL at goal of less than 100, continue current prescription medications. Assessment & Plan (09/09/2021 11:32 AM CDT): On statin therapy Tolerating well Assessment & Plan (03/25/2021 1:30 PM MC KAY MACHINE OPERATOR): On statin therapy Tolerating well Assessment & Plan (02/07/2021 10:17 AM MC KAY MACHINE OPERATOR): LDL at goal of < 70. Cont current Rx meds. Assessment & Plan (11/19/2020 3:49 PM CDT): On statin therapy Tolerating well Assessment & Plan (01/20/2020 12:53 PM MC KAY MACHINE OPERATOR): Elevated. Low-cholesterol diet recommended. Continue current [...] statin Assessment & Plan (04/27/2018 7:20 AM MC KAY MACHINE OPERATOR): Lipid abnormalities are worsening. Nutritional counseling was provided. and Pharmacotherapy as ordered. Lipids will be reassessed in 6 months. Assessment & Plan (02/07/2018 11:18 PM MC KAY MACHINE OPERATOR): Pt on statin therapy Tolerating well Assessment & Plan (10/10/2017 10:42 PM CDT): Lipid abnormalities are unchanged. Nutritional counseling was provided. and Pharmacotherapy as ordered. Lipids will be reassessed in 6 months. Assessment & Plan (03/21/2017 1:22 AM MC KAY MACHINE OPERATOR): Currently on aspirin and statin will [...] Future Assessment & Plan (02/09/2024 8:32 PM MC KAY MACHINE OPERATOR): eGFR 47 on 09/17/2023. Currently on [...] exam Assessment & Plan (02/17/2023 3:04 PM MC KAY MACHINE OPERATOR): - Home regimen: Novolog slide, insulin [...] daughter to come to examination room from [facility]. She was not aware of which medications her mother was on either. Assessment & Plan (05/05/2022 11:56 AM MC KAY MACHINE OPERATOR): Chronic problem, near goal. A1c slowly [...] months Assessment & Plan (03/25/2021 1:46 PM MC KAY MACHINE OPERATOR): Chronic, uncontrolled, improving slowly A1c today [...] meds. Assessment & Plan (01/20/2020 12:53 PM MC KAY MACHINE OPERATOR): Uncontrolled. Managed by endocrinology. Patient encouraged [...] months. Assessment & Plan (01/16/2019 1:03 PM MC KAY MACHINE OPERATOR): Managed by endocrinology. Assessment & Plan [...] now , they plan to go to [facility] Reminded to bring in blood sugar diary at next visit. Dietary recommendations for ADA diet. Regular aerobic exercise. Discussed ways to avoid symptomatic hypoglycemia. Discussed sick day management. Discussed foot care. Reminded to get yearly retinal exam. Diabetes will be reassessed in 2 weeks . Assessment & Plan (04/27/2018 7:20 AM MC KAY MACHINE OPERATOR): Diabetes is improving with treatment. - [...] weeks. Assessment & Plan (02/07/2018 11:19 PM MC KAY MACHINE OPERATOR): Diabetes is worsening. Recent HbA1c 12/2017 [...] month. Assessment & Plan (01/07/2018 5:29 PM MC KAY MACHINE OPERATOR): Diabetes is unchanged. Discussed foot care. Reminded to get yearly retinal exam. Keep sidney appt with new Paver Operator. Changed Levemir to Toujeo in an attempt to lower Rx costs for patient. Instructed her to take the forms for Levemir with her to her new Paver Operator it Toujeo was not more affordable. Assessment & Plan (10/10/2017 10:43 PM CDT): Diabetes is unchanged. Continue current treatment regimen. Reminded to bring in blood sugar diary at next visit. Dietary recommendations for ADA diet. Diabetes will be reassessed in 6 months. Assessment & Plan (03/21/2017 1:22 AM MC KAY MACHINE OPERATOR): Poorly controlled type 2 diabetes insulin [...] home. Assessment & Plan (05/05/2022 11:42 AM MC KAY MACHINE OPERATOR): Chronic problem, well controlled on current [...] appointment. Assessment & Plan (03/25/2021 1:30 PM MC KAY MACHINE OPERATOR): Hypertension is improving with treatment. Continue current treatment regimen. Dietary sodium restriction. Regular aerobic exercise. Blood pressure will be reassessed at the next regular appointment. Assessment & Plan (02/07/2021 10:15 AM MC KAY MACHINE OPERATOR): Clinically improved, continue current prescription medications. Assessment & Plan (11/19/2020 3:49 PM CDT): Hypertension is improving with treatment. Continue current treatment regimen. Dietary sodium restriction. Regular aerobic exercise. Blood pressure will be reassessed at the next regular appointment. Assessment & Plan (08/31/2020 5:37 PM CDT): BP remains within goal, keep sidney appt with license examiner. Cont current mgmt. Assessment & Plan (10/20/2019 [...] monitor. Assessment & Plan (04/27/2018 7:20 AM MC KAY MACHINE OPERATOR): Hypertension is improving with treatment. Continue current treatment regimen. Dietary sodium restriction. Regular aerobic exercise. Blood pressure will be reassessed at the next regular appointment. Assessment & Plan (02/07/2018 11:18 PM MC KAY MACHINE OPERATOR): Hypertension is chronic, well controlled for [...] appointment. Assessment & Plan (03/21/2017 1:23 AM MC KAY MACHINE OPERATOR): Hypertension fairly controlled Will continue with home lisinopril Chronic diastolic congestive heart failure Assessment & Plan (09/18/2022 7:36 PM CDT): Patient and patient's daughter deny this condition. Reviewed most recent ECHO, results state normal left ventricular diastolic function. . Asked patient to re-establish care with cardiology. Patient is lost to follow up since her key bed installer left town. Patient currently asymptomatic. Assessment & [...] 02/09/2023 Assessment & Plan (02/17/2023 2:44 PM MC KAY MACHINE OPERATOR): - 02/09 pending PT/OT, c spine [...] 11/10/2023 Assessment & Plan (05/05/2022 11:08 AM MC KAY MACHINE OPERATOR): Discussed healthy diet and importance of regular physical activity (20- 30min/day, 150min/wk). 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 Assessment & Plan (03/25/2021 1:53 PM MC KAY MACHINE OPERATOR): Advised to follow up with Entertainment Director Pt has appt on apr 02 2021 Gave instructions for local wound care Acute hypoxemic respiratory failure 04/27/2019 10/20/2019 Acute lower respiratory tract infection 04/27/2019 07/01/2019 BMI 27.0-27.9,adult 01/14/2019 04/21/19 23 Assessment & Plan (11/18/2019 1:40 PM CDT): Healthy, low carbohydrate lifestyle and exercise Dizziness 01/14/2019 10/20/2019 Assessment & Plan (01/16/2019 1:03 PM MC KAY MACHINE OPERATOR): May be secondary to anti-hypertensives. Decrease [...] tolerated tramadol and has had prescriptions for [place] as in the past. Order patient [place] as p.r.n.. Patient recently had a STEMI in March and is currently on aspirin and Brilinta will have to avoid NSAIDs for now. Assessment & Plan (06/21/2018 12:56 PM CDT): Acute, Worsening, Pt needs I and D and IV antibiotics Pt going to ER now ( [facility] ) Acute pain of right knee 05/04/2018 Assessment & Plan (05/04/2018 3:09 PM MC KAY MACHINE OPERATOR): Will obtain x-ray. Taking tylenol for pain. Asking for something stronger. Referral to Dr. Bunch, [facility] per pt request. ST elevation myocardial [...] 10/09/2017 Assessment & Plan (03/21/2017 1:26 AM MC KAY MACHINE OPERATOR): The patient was started on the [...]
--- OUTSIDE RECORDS SUMMARY | 2024-09-07 12:04 | XMS_ITS | Encounter Summary ---
Author Organization [facility] Healthcare Address [address] [place] [address] Care Team Providers Care Suture Polisher Name Role Phone Naun Georges MD Unavailable [phone] Di Demarco MD Unavailable [phone] Thomas Ordoñez MD Unavailable Joseph Mccullough MD Unavailable [phone] Faith Hamm NP Primary Care Provider Reason for Visit * Reason Onset Date Comments Referral Request 12/30/2023 Encounter Details Date Type Department Care Team (Late st Contact Info) Description 12/30/2023 Telephone [facility] Medical [facility] Primary Care at [address] [place] [address] Faith Hamm NP [address] [place] [address] [address] [place] [address] Referral Request Social History Tobacco [...] doctor or pharmacy Never 03/11/2023 [facility] Utilities Answer Date Recorded In the [...] often do you attend chur ch or anabaptist services? More than 4 times per year 04/13/2023 Do you belong to any clubs o r organizations such as jain groups, unions, fraternal or athletic groups, or [...] a senior living (including now)? No 04/13/2023 Personal Safety Answer [...] on file Legal Sex Female 5:37 PM PAINTER AND DECORATOR APPRENTICE Gender Identity Not on file Sexual Orientation Not on file documented as of this encounter Miscellaneous Notes * Telephone Encounter - Pinky Flores MA - 01/04/2024 1:13 PM PAINTER AND DECORATOR APPRENTICE Patient called back and TER AND DECORATOR APPRENTICE * Telephone Encounter - Lazara Ocasio - 01/04/2024 1:12 PM CST Call Back Caller???s Concern: Patient is returning call to Angie to give information. CS warm transferred call to backline Does message need to be routed? No TER AND DECORATOR APPRENTICE * Telephone Encounter - Angie Serna MA - 01/04/2024 12:53 PM CST Spoke with her, Uncomfortable when sitting. Urinary urgency. Pt states urologist office is at [facility] and gave me a phone number of [phone] but that phone number is not working when I tried to call. Pt states she will do some research and call back with the info. TER AND DECORATOR APPRENTICE * Telephone Encounter - [facility] - [...] Author [facility](03/2022 12:53 PM PAINTER AND DECORATOR APPRENTICE) No Betty Elizabeth, RN Note: Patient will establish a comfort-function goal and identify the pain level that will allow the patient to perform desired activities and achieve an acceptable quality of life. documented as of this encounter Visit Diagnoses Not on filedocumented in this encounter Care Teams Suture Polisher Relationship Specialty Start Date End Date Faith Hamm NP [address] [facility] [address] [place] [address] PCP - General Family Medicine 10/16/23 [place] [id number] [address] [address] Consulting Physician Endocrinology 03/29/18 [place] [id number] [address] [address] Consulting Physician Nephrology 02/27/21 Thomas Ordoñez MD [address] [facility], [address] [address] Consulting Physician Medical Oncology 05/22/21 Joseph Mccullough MD [address] [place] [address] DR GALVAN [address] [place] [address] Consulting Physician Gastroenterology 03/19/23 documented as of this encounter
--- OUTSIDE RECORDS SUMMARY | 2024-09-07 12:04 | XMS_ITS | Clinical Summary ---
Author Organization [facility] Address [address] [place] [address] Care Team Providers Care Presser First Name Role Phone Unavailable Primary Care Provider Unavailabl e Source Comments [facility],non-owned Affiliates and Associated Physician Practices is amultiple site organization consisting of ambulatory clinics and hospital sitesin [place], [place], [place] and [place]. This disclosure is being madepursuant to the Care Everywhere program and may not contain all information available regarding this patient. Last updated 17.[facility] Social History Tobacco Use Types Packs/Day Years Used Date Smoking Tobacco: Never Assessed Comments Unknown Sex and Gender Information Value Date Recorded Sex Assigned at Not on file Legal Sex Female 6:24 PM DEWAXER Gender Identity Not on file Sexual Orientation [...]
--- OUTSIDE RECORDS SUMMARY | 2024-09-07 12:04 | XMS_ITS | Data Portability ---
Author Organization [facility] [place] Address [address] [place] [address] [place] [address] Care Team Providers Care Sewing Machine Repairer Helper Name Role Phone FAITH JAMIL Primary Care Provider Assessment No assessment recorded. Plan of Treatment Reminders Order Date Submit Date Provider Last Modified By Organization Details Last Modified Time Details Appointments None recorded. Lab None recorded. Referral None recorded. Procedures fitting and insertion , pessary (PROC) [address], [address], [place], [address], 14:19:55 Surgeries None recorded. Imaging None recorded. Medication Orders clotrimaz ole-betam ethasone 1 %-0.05 % topical cream 025 [facility] [address] In [facility], [facility] [address], [place], [place], [id number], 12:39:07 Patient TargetsNo targets recorded. Patient InstructionsNo instructions recorded. Reason for Referral None Reported. Results Created Date Observation Date Name Description Value Unit Range Abnormal Flag Note LastModifiedBy Organization Detail LastModifiedTime 04/06/1904/06/2024 fitti ng and inser tion, pessa ry (PROC ) provider notes Not Available [facility] [address], [place], [address], 04/06/2024 14:19:05 Result Notes None recorded. Procedures Surgical History Date Name Laterality Status Provider Name and Address Organization Details Recorded Time 04/06/19 25 Pessary Insertion completed Idris Webb MD [address], [place], [address], [facility] 04/06/2024 15:54:26 04/05/19 25 Pessary Insertion completed Idris Webb MD [address], [place], [address], [facility] 04/05/2024 12:42:35 03/02/19 22 Mastectomy completed [facility] 04/05/2024 11:59:26 03/02/18 74 Total Hysterectomy completed [facility] 04/05/2024 11:59:07 Imaging Results None recorded. Procedure Notes None recorded. Medical Equipment None Reported. Allergies Allergen ID Allergen Name Allergen Category Reaction Reaction Severity Criticality Documentation Date Start Date Code Code System Note Provider Name and Address Organization Details Recorded Time 03951 codeine medicatio n Not available Not available Not available 04/05/2024 2670 RxNorm [facility] 11:39:55 88707 Product containin g penicilli n (product) medicatio n Not available Not available Not available 04/05/2024 88114 8001 SNOMED [facility] 11:40:17 Medications Name Sig [...] 0.5 TABLETS (10 MG TOTAL) BY MOUTH POLICE DETECTIVE BEFORE BREAKFAST 04/05 completed Not Available Not [...] Updated DateTime 04/06/2024 157.48 cm 26.3 kg/m2 71615.3 g 118/66 mm[Hg] Mary Stone [facility] 04/06/2024 11:43:27 Social History Question Answer Notes LastModified by Organizat ion Details LastModified Time Tobacco Smoking Status Never Smoker Mary Stone [facility] 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 [id number] Idris Webb MD [place] [address],[facility] [place] [address] 04/06/2024 10:57:49 04/06/2024 16:11:32 Prolapse of female genital organs 64784575 N81.9 Health Concerns Section Related Observation LastModified by Organization Detai ls LastModified Time None Recorded Concern Status LastModified by Organization Details LastModified Time None Recorded Advance Directives Directive None Recorded Payers Insurance Date Sequence Insurance Name Policy Number Policy Wan Covered Member ID Wan Member ID Guarantor Name 04/10/2024 1 [facility] (MEDICARE REPLACEMENT/A DVANTAGE - PPO) [id number] Faith Lester [id number] Faith Lester Notes Date Note Type Note [...] vulva. Idris Webb MD [address], [place], [address], [facility] 04/05/2024 12:43:45 04/06/2024 text/html Year old female who was fitted with a 2-1/2 inch ring with support pessary. The pessary fell out. . She has complete procidentia of the vagina. A 2-1/2 inch Gellhorn was placed. It is snug along the lateral aspects of the vagina. To observe. It will likely function appropriately. Idris Webb MD [address], [place], [address], [facility] [place] 04/06/2024 15:55:03 OBGyn Episode Ob Episode Information Episode Created Date Number of Fetuses Patient Bloodtype Patient rh Status Prepregnancy Weight lbs Domestic Partner Domestic Partner Phone Father Name Nuclear Medicine Physician Status 04/05/19 25 1 CLOSED Fetus Data First Name Last Name Admitted to NICU Weight (g) Sex Living Outcome Pediatric Complications Fetus ID Race Codes Race Delivery Type Full Term [id number] Vaginal Delivery Daniel Calculation Initial Daniel Date [...]
--- OUTSIDE RECORDS SUMMARY | 2024-09-07 12:04 | XMS_ITS | Encounter Summary ---
Author Organization [facility] Healthcare Address [address] [place] [address] Care Team Providers Care Net Software Developer Name Role Phone Devaughn Bazan DO Unavailable [phone] Natalia Vang DO Primary Care Provider [phone] Naun Georges MD Unavailable [phone] Frankie Bright MD Unavailable [phone] Di Demarco MD Unavailable [phone] Thomas Ordoñez MD Unavailable Anne Marie Platt [facility] Unavailable [phone] Naun Georges MD Unavailable [phone] Mendez Shine RN Unavailable [phone] Joseph Mccullough MD Unavailable [phone] Faith Hamm NP Primary Care Provider [phone] Reason for Visit * Reason Onset Date Comments Scheduling Appointments 04/04/2020 DEXA rem kacey; no answer Encounter Details Date Type Department Care Team (Late st Contact Info) Description 04/04/2020 Telephone [facility] [address] [place] [id number] Renata Wong RT Scheduling Appointments (DEXA reminder; [...] on file Legal Sex Female 5:37 PM DIGITAL STRATEGY DIRECTOR Gender Identity Not on file Sexual Orientation Not on file documented as of this encounter Plan of Treatment Not on file documented as of this encounter Goals Goal Patient Goal Type Associated Problems Recent Progress Patient-Stated? Author BH-Pain Behavioral Health Improving(03/2022 12:53 PM DIGITAL STRATEGY DIRECTOR) No Betty Elizabeth, CIRA Note: Patient will [...] COVID: Suspected 05/03/2021 05/03/2021 05/04/2021 3:05 AM DIGITAL STRATEGY DIRECTOR COVID: Suspected 05/03/2021 05/03/2021 05/04/2021 7:39 PM DIGITAL STRATEGY DIRECTOR COVID: Suspected 12/30/2022 12/30/2022 12/30/2022 10:47 AM CDT documented as of this encounter Care Teams Net Software Developer Relationship Specialty Start Date End Date Natalia Vang DO PCP - General Family Medicine 10/09/17 10/15/23 Faith Hamm NP [address] [address] PCP - General Family Medicine 10/16/23 Devaughn Bazan DO Surgeon Otolaryngology 03/26/17 11/09/23 [place] [address] [address] [address] Consulting Physician Endocrinology 03/29/18 [place] [address] [address] [place] [id number] Anesthesiologist Pain Management 10/20/19 11/09/23 [place] [address] [address] [address] Consulting Physician Nephrology 02/27/21 Thomas Ordoñez MD [address] [facility] [address] Consulting Physician Medical Oncology 05/22/21 Anne Marie Platt [address] [place] [address] Pharmacist Pharmacy 08/23/21 08/25/21 [place] [address] [address] [address] Consulting Physician Endocrinology 12/15/22 11/09/23 Mendez Shine, CIRA [address] [place] [address] [address] Instrument Lens Generator 03/06/23 04/12/23 Joseph Mccullough MD [address] [place] [address] [address] [place] [address] Consulting Physician Gastroenterology 03/19/23 documented as of this encounter
--- OUTSIDE RECORDS SUMMARY | 2024-09-07 12:04 | XMS_ITS | Encounter Summary ---
Author Organization [facility] Address [address] [place] [address] Phone Care Team Providers Care Ux Design Manager Name Role Phone Hank Seymour MD Unavailable [phone] Sandip Murphy MD Unavailable [phone] Sony Patel MD Unavailable + Mariah Rose MD Unavailable [phone] Con Pete MD, Merrill Unavailable [phone] Natalia Vang DO Primary Care Provider [phone] Urban To APRN, CNP Unavailable [phone] Reason for Visit * Reason Onset Date Comments Medication Refill 03/25/2023 Encounter Details Date Type Department Care Team (Late st Contact Info) Description 03/25/2023 Refill [facility] [address] [place] [address] Zack Mccullough, PAC [address] [place], [place] [id number] Medication Refill Social History Tobacco Use Types [...] Primary documented in this encounter Care Teams Ux Design Manager Relationship Specialty Start Date End Date Natalia Vang DO [address] [address] PCP - General Family Medicine 07/20/20 Hank Seymour MD Consulting Physician Radiation Oncology 07/31/15 Sandip Murphy MD Consulting Physician General Surgery 07/31/15 Sony Patel MD [address] [address] Consulting Physician Endocrinology 07/31/15 Mariah Rose MD 1 [facility] [address] Consulting Physician Wound Care 07/31/15 Merrill Andujar Jr., MD [facility] [place] [address] Consulting Physician Oncology 07/31/15 Urban To APRN, PROPERTY MANAGEMENT SPECIALIST [address] [place] [address] Nurse Practitioner Advanced Practice Nurse 03/28/23 documented as of this encounter
--- OUTSIDE RECORDS SUMMARY | 2024-09-07 12:04 | XMS_ITS | Encounter Summary ---
Author Organization [facility] Healthcare Address [address] [place] [address] Care Team Providers Care Electrical Project Manager Name Role Phone Devaughn Bazan DO Unavailable [phone] Natalia Vang DO Primary Care Provider [phone] Naun Georges MD Unavailable [phone] Frankie Bright MD Unavailable [phone] Di Demarco MD Unavailable [phone] Thomas Ordoñez MD Unavailable Anne Marie Platt [facility] Unavailable [phone] Naun Georges MD Unavailable [phone] Mendez Shine RN Unavailable [phone] Joseph Mccullough MD Unavailable [phone] Faith Hamm NP Primary Care Provider Reason for Visit * Reason Onset Date Comments Scheduling Appointments 04/18/2020 Appt. re minder; no answer Encounter Details Date Type Department Care Team (Late st Contact Info) Description 04/18/2020 Telephone [facility] [address] [place] [address] Renata Wong RT Scheduling Appointments (Appt. reminder; [...] on file Legal Sex Female 5:37 PM FREIGHT DELIVERY DRIVER Gender Identity Not on file Sexual Orientation Not on file documented as of this encounter Plan of Treatment Not on file documented as of this encounter Goals Goal Patient Goal Type Associated Problems Recent Progress Patient-Stated? Author BH-Pain Behavioral Health Improving(03/2022 12:53 PM FREIGHT DELIVERY DRIVER) No Betty Elizabeth RN Note: Patient will [...] COVID: Suspected 05/03/2021 05/03/2021 05/04/2021 3:05 AM FREIGHT DELIVERY DRIVER COVID: Suspected 05/03/2021 05/03/2021 05/04/2021 7:39 PM FREIGHT DELIVERY DRIVER COVID: Suspected 12/30/2022 12/30/2022 12/30/2022 10:47 AM CDT documented as of this encounter Care Teams Electrical Project Manager Relationship Specialty Start Date End Date Natalia Vang DO PCP - General Family Medicine 10/09/17 10/15/23 Faith Hamm NP [address] [address] PCP - General Family Medicine 10/16/23 Devaughn Bazan DO Surgeon Otolaryngology 03/26/17 11/09/23 [place] [address] [address] Consulting Physician Endocrinology 03/29/18 [place] [address] [address] [place] [id number] Anesthesiologist Pain Management 10/20/19 11/09/23 [place] [address] [address] Consulting Physician Nephrology 02/27/21 Thomas Ordoñez MD [address] [facility] [address] Consulting Physician Medical Oncology 05/22/21 Anne Marie Platt, [address] [place] [address] Pharmacist Pharmacy 08/23/21 08/25/21 [place] [address] [address] [address] Consulting Physician Endocrinology 12/15/22 11/09/23 Mendez Shine, CIRA [address] [place] [address] [address] Oracle Erp Developer 03/06/23 04/12/23 Joseph Mccullough MD [address] [place] [address] [facility] [address] [place] [address] Consulting Physician Gastroenterology 03/19/23 documented as of this encounter
--- OUTSIDE RECORDS SUMMARY | 2024-09-07 12:05 | XMS_ITS | Continuity of Care Document ---
Author Organization [facility] Address [address] [place] [address] Phone Care Team Providers Care Volleyball Assistant Coach Name Role Phone Cuauhtemoc CARPIO, Simba Unavailable [...] Diagnoses Date Provider Providers Copied on Encounter [facility], [address], [place], [place], [address], [place] tel:[phone] SEC Tamir [place] Professional Diabetic eye exam (chief complaint) Nuclear sclerotic cataract of both eyesDry eyes, bilateralType 2 diabetes mellitus with complicationsM oderate nonproliferati ve diabetic retinopathy, without macular edema, associated with type 2 diabetes mellitus Dec-2 2- 5 Kerwinkayla Cottrell. [address] Financial[facility], [address], [place], [place], [address], [place]. tel:[phone] [place]/outpa [place]ient Visit, [facility] [address] [place] [address] [address], [place], [place], [address], [place] tel:[phone] SEC Tamir [place] Professional F/u exam, Plaquenil therapy (chief complaint) Therapeutic Drug MonitoringSENI LE NUCLEAR CATARACTDiabet es (high blood sugar disease) affecting the eyeDiabetic retinopathy Apr-0 6201 5 Mariam Almodovar. [address] [facility], [address], [place], [address], [place]. tel:[phone] Referring Provider: Simba Villarreal, [address] [facility] [facility] [address], [place], [address] . tel:[phone] Office/outpa tient Visit, [facility] [address], [place], [place], [address], [place] tel:[phone] SEC Tamir [place] Professional F/u exam, Plaquenil therapy (chief complaint) Therapeutic Drug MonitoringDiab etes (high blood sugar disease) affecting the eyeDiabetic retinopathySEN ILE NUCLEAR CATARACT Oct-0 4 Cuauhtemoc Cottrell. [address] [employer] [employer] [facility], [address], [place], [place], [address], [place]. tel:[phone] Referring Provider: Simba Villarreal [address] [place] [facility], [address], [place], [address] . tel:[phone] Office/outpa tient Visit, [facility] [address], [place], [place], [address], [place] tel:[phone] SEC Douglas RADHA Professional Diabetes Mellitus Type 2, UncomplicatedS ENILE NUCLEAR CATARACTTherap eutic Drug Monitoring May-0 4-201 4 Cuauhtemoc Cottrell. [address] [employer], [address] [place], [address], [place]. tel:[phone] Office/outpa tient Visit, [facility], [address], [place], [place], [address], [place] tel:[phone] SEC Tamir RADHA Professional Therapeutic Drug MonitoringSENI LE NUCLEAR CATARACTHORDEO LUM INTERNUMDiabet es Mellitus Type 2, Uncomplicated Sep- 3-201 3 Cuauhtemoc Cottrell. [address] [facility], [place], [address], [place]. tel:[phone] Referring Provider: Simba Villarreal, [address] [place], [address] . tel:[phone] Office/outpa tient Visit, [facility], [address], [place], [place], [address], [place] [phone] SEC Douglas RADHA Professional CHALAZION Apr- 3 Mariam Almodovar. [address] [facility], [address], [place], [address], [place]. tel:[phone] [facility], [address], [place], [place], [address], [place] tel:[phone] SEC Tamir RADHA Professional No Information Fe- 3 Cuauhtemoc Cottrell. [address] [facility] [facility], [place], [address], [place]. tel:[phone] Referring Provider: Simba Villarreal, [address] FinancialH[facility] [place], [address] . tel:[phone] Office/outpa tient Visit, [facility], [address] [employer] [address], [place], [place], [address], [phone] SEC Tamir RADHA Professional BLEPHAROCONJUN CTIVIT NOS 8-201 2 Cuauhtemoc Cottrell. [address] [facility], [address], [place], [place], [address], [place]. tel:[phone] [facility], [address], [place], [place], [address], tel:[phone] SEC Tamir GARCIA Professional No Information 8 Isaac Kim. [facility], [address], [place], [place], [address], . tel:[phone] Referring Provider: Simba Villarreal, [address] [facility] [address], [place], [address] . tel:[phone] Office/outpa tient Visit, [facility], [address], [place], [place], [address], [place] [phone] SEC Tamir GARCIA Professional No Information 7 Isaac Kim. [facility], [address], [place], [place], [address], [place]. tel:[phone] Referring Provider: Julio Villarreal, [facility] [address], [place], [address] . tel:[phone] Family History Family Member Type Diagnosis Age At Onset No Information Payers Payer name Insurance type Covered democrat ID Max sommerlesvia(s) Oswaldo ([employer]vant[employer], Gold Advantage) [place] [id number] Social History Type Description Quantity Date Captured [...] Diabe erlin Mellitus Type 2, Uncomplicated mild gill box fixer-rare dot he mm - observation Educational materials provided to patient. Related to Diabetes Mellitus Type 2, Uncomplicated mod nsc - pt states vis ok Relat ed to SENILE NUCLEAR CATARACT - 6mths- 10-2 vf and dilate Rela morelia to Therapeutic Drug Monitoring plaquinil-no toxicity - observat ion Related to Therapeutic Drug Monitoring no gill box fixer - reevaluate in 6mths when in for [...] states vis seems ok - 1yr no gill box fixer - DM letter MGD - HMP and [...]
--- NOTE | 2024-09-07 12:09 | ED_ITS ---
HPI - General Adult General Chief complaint: Unspecified Stated complaint: Hypotension Time Seen by Provider: 09/07/24 12:11 Mode of arrival: ambulatory Limitations: no limitations History of Present Illness HPI narrative: 89-year-old female presents with concern for low blood pressure reading. Reports her visiting nurse was her house today and she had a blood pressure with systolic in the 80s. She reports she drank a few glasses of water and 30 minutes later checked her blood pressure again which was a much better. Her primary doctor recommended she go to the emergency room. She did not want to go to the emergency room so she came here. She is currently on antibiotics for urinary tract infection, she has 2 days left of Cipro. And she is on a Z-Manny for pneumonia. She reports she has not been drinking much water. She reports when her blood pressure reading was low she was feeling less tired. Reports she feels normal. She denies fever, body aches, chills, sweats. She denies chest pain or shortness of breath. Patient has an indwelling catheter. MD complaint: Low blood pressure Related Data Home Medications ?Medication ?Instructions ?Recorded ?Confirmed ?Last Taken ?Type carvedilol 6.25 mg tablet 6.25 mg PO BID 04/08/19 09/06/20 Unknown History insulin aspart U-100 100 unit/mL 3 unit subcut TID 04/08/19 09/06/20 Unknown History (3 mL) subcutaneous pen (Novolog FlexPen U-100 Insulin aspart) insulin glargine U-300 conc 300 20 unit subcut DAILY 04/08/19 09/06/20 Unknown History unit/mL (1.5 mL) subcutaneous pen (Toujeo SoloStar U-300 Insulin) rosuvastatin 40 mg tablet 40 mg PO DAILY 04/08/19 09/06/20 Unknown History tramadol 50 mg tablet 50 mg PO HS 04/08/19 09/06/20 Unknown History aspirin 81 mg tablet,delayed 81 mg PO DAILY 09/04/20 09/06/20 Unknown History release (Adult Low Dose Aspirin) duloxetine 30 mg capsule,delayed 30 mg PO DAILY 09/04/20 09/06/20 Unknown Hist ory release lisinopril 2.5 mg tablet 2.5 mg PO DAILY 09/04/20 09/06/20 Unknown History brimonidine 0.2 % eye drops drp 09/07/24 Unknown History oxycodone 5 mg tablet mg 09/07/24 Unknown History pantoprazole 40 mg tablet,delayed mg PO 09/07/24 Unknown History release Allergies Allergy/AdvReac Type Severity Reaction Status Date / Time codeine Allergy Unknown Chest Pain Verified 09/07/24 12:11 Penicillins Allergy Unknown Rash Verified 09/07/24 12:11 Review of Systems Review of Systems: CONSTITUTIONAL: Denies malaise, chills, sweats, or fever. EYES: Denies visual changes, redness, or discharge. ENT: Denies rhinorrhea, congestion, sinus pain, otalgia or sore throat. CARDIOVASCULAR: Denies chest pain, palpitations, or edema. RESPIRATORY: Denies cough or dyspnea. GASTROINTESTINAL: Denies nausea, vomiting, diarrhea SKIN: Denies rash or itching. MUSCULOSKELETAL: Denies back pain, joint pain, or myalgia. NEUROLOGIC: Denies numbness, weakness, or headache. PSYCHIATRIC: Denies anxiety or depression. All systems reviewed & are unremarkable except as noted in HPI and below PMFSH Past Medical History Medical History Breast cancer Myocardial infarct 2019 Hypercholesteremia Diabetes Surgical History Surgical History History of lumpectomy of right breast History of cardiac catheterization Family History Family History Sibling Family history of arthritis Family history of lung cancer Diabetes mellitus Heart disease Father , Motor vehicle accident Alcoholism Mother , at the age of 96 Hypercholesteremia Social History Social History Smoking status: Never smoker Tobacco type: cigarettes Second hand tobacco smoke exposure: No Alcohol intake: current Substance use: never Living arrangements: with family Additional living arrangements comments: grandson lives in second-floor part of home Occupation/Education: retired Gender identity (if verbalized by the patient): Female Sexual Orientation (if Verbalized by the Patient): Straight or Heterosexual Comments At time of signature, agree with nursing past medical, surgical, social and family history. There is no relevant family history pertinent to the presenting complaint Exam Narrative: GENERAL: Well-appearing, well-nourished, and in no acute distress. HEAD: Normocephalic, atraumatic. EYES: PERRLA, sclera clear, and EOMI. No nystagmus. ENT: Nares clear. Mucous membranes moist. NECK: Supple. CHEST: No respiratory distress. Clear to auscultation. No bony deformities, no asymmetry. Speaks in full sentences. HEART: Regular rate and rhythm. No murmur heard. Normal peripheral pulses. SKIN: Warm, dry, no visible rash. NEURO: Alert and oriented x3. No focal deficits. Cranial nerves II through XII grossly intact PSYCH: Normal mood and affect Course Course Emergency Course: Patient is aware of, understands and agrees to treatment plan. Anticipatory guidance given. Patient agrees to follow-up as directed and is aware of reasons to seek care at the emergency department. Portions of this record may have been created with voice recognition software Level of Care: [facility] Visit Vital Signs Vital signs: Vital Signs Temperature 97.7 F 09/07/24 12:02 Pulse Rate 80 09/07/24 12:02 Respiratory Rate 14 09/07/24 12:02 Blood Pressure 101/61 09/07/24 12:02 Pulse Oximetry 98 09/07/24 12:02 Oxygen Delivery Room Air 09/07/24 12:02 Temperature 97.7 F 09/07/24 12:02 Pulse Rate 80 09/07/24 12:02 Respiratory Rate 14 09/07/24 12:02 Blood Pressure 101/61 09/07/24 12:02 Pulse Oximetry 98 09/07/24 12:02 Oxygen Delivery Room Air 09/07/24 12:02 Reviewed. Medical Decision Making MDM Narrative Medical decision making narrative: The patient was evaluated by myself in the [facility]. History is obtained from patient who is an independent historian and physical exam was performed.? Available medical records were reviewed at this time. ? Exam findings show no acute concerns or changes; patient is non-toxic appearing and is in no distress. Patient is appropriate for outpatient treatment and follow-up. Urine sample taken from patient's catheter port, unable to get a sample directly from the bladder, took sample of urine in the tube. Given that patient?is asymptomatic, afebrile and currently on Cipro I will not treat for UTI at this time. I advised her to follow-up with her primary care provider in the next 1-2 days. I have evaluated and discussed social determinants of health with the patient that could potentially impact subsequent diagnosis and treatment plans. ? Differential diagnosis and treatment plan were discussed with the patient. Patient agrees with discussion and after shared medical decision making agrees with plan of care. All questions were answered to the patient's satisfaction. Vital Signs Vital Signs: Vital Signs Temperature 97.7 F 09/07/24 12:02 Pulse Rate 80 09/07/24 12:02 Respiratory Rate 14 09/07/24 12:02 Blood Pressure 101/61 09/07/24 12:02 Pulse Oximetry 98 09/07/24 12:02 Oxygen Delivery Room Air 09/07/24 12:02 Temperature 97.7 F 09/07/24 12:02 Pulse Rate 80 09/07/24 12:02 Respiratory Rate 14 09/07/24 12:02 Blood Pressure 101/61 09/07/24 12:02 Pulse Oximetry 98 09/07/24 12:02 Oxygen Delivery Room Air 09/07/24 12:02 Critical Care Time Critical Care Time Critical Care Time: No Discharge Plan Discharge Clinical Impression: Low blood pressure reading Patient Disposition: Home Condition: Stable Instructions: Dehydration (ED) Additional Instructions: 1) Please follow-up with your primary care doctor in the next 1-2 days. 2) If you have any worsening of symptoms or any other urgent concerns please go to the ER. 3) Please take medications as prescribed and continue taking your home medications as usual. Please make sure you are staying hydrated with fluids containing electrolytes, you should take small sips frequently and monitor how much your taking in in a day. 4) Please read and follow information included in discharge instructions. Patient Language: Barbadian Prescriptions: No Action prednisone 20 mg tablet 40 mg PO DAILY 5 Days Qty: 10 0RF benzonatate [Tessalon Perles] 100 mg capsule 100 mg PO BID PRN (Reason: cough) Qty: 14 0RF azithromycin [Zithromax] 250 mg tablet See Rx Instructions .ROUTE .COMPLEX Qty: 6 0RF Rx Instructions: For 250 mg dose pack: take 500 mg today (day 1), then 250 mg for 4 days (days 2-5) insulin aspart U-100 [Novolog FlexPen U-100 Insulin] 100 unit/mL (3 mL) Insulin Pen 3 unit SUBCUT TID carvedilol 6.25 mg Tablet 6.25 mg PO BID tramadol 50 mg Tablet 50 mg PO HS rosuvastatin 40 mg Tablet 40 mg PO DAILY Priscilla Marshall U-300 Insulin 300 unit/mL (1.5 mL) Insulin Pen 20 unit SUBCUT DAILY pantoprazole 40 mg tablet,delayed release (DR/EC) PO brimonidine 0.2 % drops oxycodone 5 mg tablet lisinopril 2.5 mg tablet 2.5 mg PO DAILY duloxetine 30 mg capsule,delayed release(DR/EC) 30 mg PO DAILY aspirin [Adult Low Dose Aspirin] 81 mg tablet,delayed release (DR/EC) 81 mg PO DAILY fluticasone propionate [Flonase Allergy Relief] 50 mcg/actuation spray,suspension 1 - 2 spray intranasal BID Qty: 16 3RF Rx Instructions: administer into each nostril Follow-up/Referrals: Skye,MD Clarence [Primary Care Provider] - Time of Disposition: 12:41
[2024-09-07 12:50] LABS: EDUAAPPEAR Clots; EDUABILI 1+ (Negative); EDUABLOOD 2+ (Negative); EDUACOLOR1 Dark; EDUAGLUCOSE Trace (Negative); EDUAKETONE Trace (Negative); EDUALEUKO Trace (Negative); EDUANITRATE Negative (Negative); EDUAPH 5.5; EDUAPROTEIN 3+ (Negative); EDUASPGRAVITY 1.030; EDUAUROBILI 0.2
== END 2024-09-07 12:50 | disposition home or self-care (01) ==
PROVIDERS: Emergency Provider Nurse Practitioner; PCP Hospitalist
DX: I95.9 Hypotension, unspecified (principal); E11.9 Type 2 diabetes mellitus without complications; Z79.4 Long term (current) use of insulin; E78.00 Pure hypercholesterolemia, unspecified; I25.2 Old myocardial infarction; Z85.3 Personal history of malignant neoplasm of breast; Z79.82 Long term (current) use of aspirin
CPT/HCPCS: 81003; 99212; G0463